=== PATIENT | female | born 1960 | race American Indian/Alaskan Native ===

== ENCOUNTER 2017-05-12 19:56 | Inpatient (IN) | payer MEDICAID ==
[2017-05-12 20:32] LABS: BASO # 0.1 K/uL (0.0-0.2); BASO % 0.9 % (0.0-2.0); EOS # 0.4 K/uL (0.0-0.7); EOS % 4.7 % (0.0-4.0); HEMATOCRIT 47.2 % (34.0-47.0); LYMPH # 2.2 K/uL (1.0-4.3); LYMPH % 27.7 % (20.0-40.0); MEAN CELL VOLUME 95.9 fL (81.0-99.0); MEAN CORPUSCULAR HEMOGLOBIN 31.4 pg (27.0-31.0); MEAN CORPUSCULAR HGB CONC 32.7 g/dL (33.0-37.0); MEAN PLATELET VOLUME 11.4 fL (7.2-11.7); MONO # 0.7 K/uL (0.0-0.8); MONO % 8.4 % (0.0-10.0); RED CELL DISTRIBUTION WIDTH 14.7 % (11.5-14.5); WHITE BLOOD COUNT 8.1 K/uL (4.8-10.8)
[2017-05-12 20:42] LABS: CHLORIDE 106 mmol/L (98-107); POTASSIUM 3.9 mmol/L (3.6-5.2); SODIUM 137 mmol/L (132-148)
[2017-05-12 20:44] LABS: BILIRUBIN,TOTAL 0.5 mg/dL (0.2-1.3); GFR AFRICAN-AMERICAN 51
[2017-05-12 20:45] LABS: ALB/GLOB RATIO 1.1 (1.0-2.1); ALKALINE PHOSPHATASE 137 U/L (38-126); ALT/SGPT 39 U/L (9-52); AST/SGOT 41 U/L (14-36); BLOOD UREA NITROGEN 19 mg/dL (7-17); CALCIUM 9.1 mg/dl (8.6-10.4); CARBON DIOXIDE 21 mmol/L (22-30); GLUCOSE,RANDOM 103 mg/dL (65-105); TOTAL PROTEIN 6.9 g/dL (6.3-8.3)
--- NOTE | 2017-05-12 20:45 | C.PDOC ---
History Of Present Illness Patient presents to the ER requesting detox from heroin and ETOH. Patient reports last use was at 15:00. Denies SI and HI. Time Seen by Provider: 05/12/17 20:45 Chief Complaint (Nursing): Substance Abuse History Per: Patient History/Exam Limitations: no limitations Onset/Duration Of Symptoms: Hrs Current Symptoms Are (Timing): Still Present Suicide/Self Injury Attempted (Context): None Modifying Factor(s): Alcohol, Narcotics Severity: None Pain Scale Rating Of: 0 Associated Symptoms: denies: Depression, Suicidal Thoughts, Suicidal Plan Recent travel outside of the [place]: No Past Medical History Reviewed: Historical Data, Nursing Documentation, Vital Signs Vital Signs: Last Vital Signs Temp 97.3 F L 05/12/17 20:01 Pulse 73 05/12/17 20:01 Resp 18 05/12/17 20:01 BP 197/82 H 05/12/17 20:01 Pulse Ox 96 05/12/17 21:05 - Medical History PMH: HTN Surgical History: No Surg Hx Family History: States: No Known Family Hx - Social History Hx Alcohol Use: Yes Hx Substance Use: Yes (heroin) - Immunization History Hx Influenza Vaccination: No Review Of Systems Constitutional: Negative for: Fever, Chills Gastrointestinal: Negative for: Nausea, Vomiting, Diarrhea Psych: Negative for: Suicidal ideation, Other (Homicidal ideation) Physical Exam - Physical Exam Appears: Non-toxic Skin: Warm, Dry Oral Mucosa: Moist Chest: Symmetrical, No Tenderness Cardiovascular: Rhythm Regular, No Murmur Respiratory: No Rales, No Rhonchi, No Wheezing Gastrointestinal/Abdominal: Soft, No Tenderness Neurological/Psych: Oriented x3 ED Course And Treatment - Laboratory Results Result Diagrams: 05/12/17 20:24 05/12/17 20:24 O2 Sat by Pulse Oximetry: 96 (Room air) Pulse Ox Interpretation: Normal Progress Note: Macrobid administered. Urinalysis ordered. Disposition Discussed With : Delmy Valverde Comment: accepted the pt on his service and took over the care at 10PM Doctor Will See Patient In The: Hospital Counseled Patient/Family Regarding: Studies Performed, Diagnosis - Disposition Disposition: HOSPITALIZED Disposition Time: 20:45 Condition: FAIR - POA Present On Arrival: None - Clinical Impression Clinical Impression: Alcohol abuse, Opioid abuse - Scribe Statement The provider has reviewed the documentation as recorded by the Scribe Dionicio Alonso All medical record entries made by the Adyibyissel were at my direction and personally dictated by me. I have reviewed the chart and agree that the record accurately reflects my personal performance of the history, physical exam, medical decision making, and the department course for this patient. I have also personally directed, reviewed, and agree with the discharge instructions and disposition. Decision To Admit - Pt Status Changed To: Hospital Disposition Of: Inpatient - Admit Certification Admit to Inpatient:: After my assessment, the patient will require hospitalization for at least two midnights. This is because of the severity of symptoms shown, intensity of services needed, and/or the medical risk in this patient being treated as an outpatient. - InPatient: Physician Admission Certification: I certify that this patient requires 2 or more midnights of care for the following reason:: After my assessment, the patient will require hospitalization for at least two midnights. This is because of the severity of symptoms shown, intensity of services needed, and/or the medical risk in this patient being treated as an outpatient. - . Bed Request Type: Detox Admitting Physician: Delmy Valverde Patient Diagnosis: Alcohol abuse, Opioid abuse
[2017-05-12 20:46] LABS: ALCOHOL SERUM < 10 mg/dl (0-10)
[2017-05-12 20:48] LABS: RBC URINE 3 /hpf (0-3); URINE BACTERIA FEW (<OCC); URINE BILIRUBIN NEGATIVE (NEGATIVE); URINE BLOOD NEGATIVE (NEGATIVE); URINE COLOR Yellow (YELLOW); URINE GLUCOSE (UA) 1+ mg/dL (Normal); URINE KETONE NEGATIVE (NEGATIVE); URINE LEUKOCYTE ESTERASE 1+ Leu/uL (Negative); URINE PROTEIN 3+ mg/dL (NEGATIVE); URINE UROBILINOGEN NORMAL mg/dL (0.2-1.0); WBC URINE 31 /hpf (0-5)
[2017-05-13] MEDS ORDERED: Pneumococcal 23-Valent Vaccine IM ONE (05:25)
[2017-05-13 08:33] LABS: BASO # 0.1 K/uL (0.0-0.2); BASO % 0.8 % (0.0-2.0); EOS # 0.3 K/uL (0.0-0.7); HEMATOCRIT 43.7 % (34.0-47.0); LYMPH # 1.7 K/uL (1.0-4.3); LYMPH % 25.5 % (20.0-40.0); MEAN CELL VOLUME 95.2 fL (81.0-99.0); MEAN CORPUSCULAR HEMOGLOBIN 31.3 pg (27.0-31.0); MEAN CORPUSCULAR HGB CONC 32.9 g/dL (33.0-37.0); MEAN PLATELET VOLUME 11.8 fL (7.2-11.7); MONO # 0.5 K/uL (0.0-0.8); RED CELL DISTRIBUTION WIDTH 14.3 % (11.5-14.5); WHITE BLOOD COUNT 6.5 K/uL (4.8-10.8)
[2017-05-13 08:42] LABS: POTASSIUM 3.4 mmol/L (3.6-5.2)
[2017-05-13 08:44] LABS: BILIRUBIN,TOTAL 0.4 mg/dL (0.2-1.3); PHOSPHOROUS 3.8 mg/dL (2.5-4.5); TOTAL PROTEIN 6.4 g/dL (6.3-8.3)
[2017-05-13 08:45] LABS: CALCIUM 8.9 mg/dl (8.6-10.4); MAGNESIUM 1.8 mg/dL (1.6-2.3)
[2017-05-13] MEDS ORDERED: Aluminum Hydroxide/Magnesium Hydroxide Susp (30 mL) PO PRN (09:35)
--- NOTE | 2017-05-13 09:40 | PCM.PSYCH ---
Initial Psychiatric Evaluation - Initial Psychiatric Evaluation Type of Admission: Voluntary Legal Status: Capacity Chief Complaint (in patient's own words): "Tired" History of Present Illness and Precipitating Events: Patient is seen on the detox unit, chart reviewed and case discussed. This is a 56-year-old -Citizen Of [place] female, single, living with her youngest daughter, unemployed. Patient is a poor historian and she is lethargic and some of the history is obtained from the medical records. She is here for heroin and alcohol detox, but mostly heroin. She uses up to 10 bags intranasally for "many years" Currently, she is not in withdrawal but "starting" She also drinks alcohol, sometimes more but lately she drinks 3 beers, 24 oz each. She denies DTs or seizures but had some withdrawal symptoms by history, not currently. Her urine is positive for cocaine but she initially denied it. Then she admitted that she sometimes uses intranasally. She denies other drugs She has been to detox 4 times, rehabilitation 3 times. She denies psych symptoms. Past psych history: Denies Medical history: High blood pressure and diabetes Family psych history: Unknown Current Medications: Active Medications Generic Name Dose Route Start Last Admin Trade Name Freq PRN Reason Stop Dose Admin Al Hydrox/Mg Hydrox/Simethicone 30 ml 05/13/17 09:35 Maalox 30 Ml PO TID PRN Indigestion / Heartburn Clonidine HCl 0.1 mg 05/13/17 09:34 Catapres PO Q4H PRN Symptoms of alcohol withdrawl Folic Acid 1 mg 05/13/17 10:00 Folic Acid PO DAILY ENRIQUE Gabapentin 100 mg 05/13/17 10:00 Neurontin PO TID ENRIQUE Loperamide HCl 2 mg 05/13/17 09:35 Imodium PO Q8 PRN Diarrhea Multivitamins 1 tab 05/13/17 10:00 Hexavitamin PO DAILY ENRIQUE Ondansetron HCl 4 mg 05/13/17 09:35 Zofran Tab PO Q8 PRN Nausea/Vomiting Thiamine HCl 100 mg 05/13/17 10:00 Vitamin B1 Tab PO DAILY ENRIQUE Trazodone HCl 50 mg 05/12/17 22:33 Desyrel PO HS PRN Insomnia Past Psychiatric History - Past Psychiatric History Previous Treatment History: None Pertinent Medical Hx (Current Medical&Sleep Prob, Allergies): Allergies Allergy/AdvReac Type Severity Reaction Status Date / Time No Known Allergies Allergy Verified 05/12/17 20:03 Aspirin 81 mg PO DAILY 05/12/17 Benazepril/Hydrochlorothiazide [Benazepril HCl/Hydrochlorothiazide 10 mg-12.5] 1 tab PO DAILY 05/12/17 Empagliflozin [Jardiance] 10 mg PO DAILY 05/12/17 Gabapentin DAILY 05/12/17 Review of Systems - Neurological Neurological: Weakness - Psychiatric Psychiatric: Abnormal Sleep Pattern, Anxiety, Difficulty Concentrating. absent : Hallucinations, Homicidal Ideation, Suicidal Ideation Mental Status Examination - Personal Presentation Personal Presentation: Looks stated age - Affect Affect: Blunted - Motor Activity Motor Activity: Calm - Reliability in Providing Information Reliability in Providing Information: Fair - Speech Speech: Other (mumbling, too slowed, monotonous) - Mood Mood: Anxious - Formal Thought Process Formal Thought Process: No Impairment - Cognitive Functions Orientation: Person, Place, Time Sensorium: Lethargic Attention/Concentration: Easily distracted Abstract Thinking: Trinity Estimate of Intelligence: Average Judgement: Intact, as evidence by: Insight regarding need for hospitalization Memory: Recent impaired, as evidence by: Inability to recall events of the day, Remote impaired as evidenced by: Inability to recall sig life events - Risk Risk: Withdrawal, Diminished functioning - Strength & Assets Inventory Strength & Assets Inventory: Cooperative - Limitations Limitations: Other DSM 5 DX - DSM 5 DSM 5 Diagnosis: Opioid use d/o - severe Alcohol use d/o - severe Cocaine use d/o - moderate HTN DM - Recommended/Plan of Treatment Treatment Recommendations and Plan of Treatment: Alcohol: Librium detox if she withdraws Gabapentin for augmentation As needed meds and vitamins Attend groups and activities OR for abstinence and CBT for relapse prevention Support and psychoeducation Consider and encourage MAT Refer to after care at IOP or rehab Opioids: Methadone detox when she withdraws As needed meds and vitamins Attend groups and activities OR for abstinence and CBT for relapse prevention Support and psychoeducation Consider and encourage MAT Refer to after care at an IOP or inpatient rehab Cocaine: Gabapentin for wdw sxs OR for abstinence Medical problems: To be transferred to medicine due to malignant HTN Help appreciated 33 min Projected ELOS: 5 dyas Prognosis: Good with treatment Discharge Plan and Discharge Criteria: No wdw sxs Refer to IOP or rehab AND MAT (ie Vivitrol)
--- NOTE | 2017-05-13 09:46 | CP.PCM.CON ---
<Dai Helton V - Last Filed: 05/13/17 18:39> Meds Allergies/Adverse Reactions: Allergies Allergy/AdvReac Type Severity Reaction Status Date / Time No Known Allergies Allergy Verified 05/12/17 20:03 - Medications Medications: Current Medications Al Hydrox/Mg Hydrox/Simethicone (Maalox 30 Ml) 30 ml PO TID PRN PRN Reason: Indigestion / Heartburn Aspirin (Aspirin Chewable) 81 mg PO DAILY [facility] Last Admin: 05/13/17 13:32 Dose: 81 mg Chlordiazepoxide (Librium) 25 mg PO Q4H PRN PRN Reason: Alcohol Withdrawal Last Admin: 05/13/17 13:38 Dose: 25 mg Clonidine HCl (Catapres) 0.1 mg PO Q8H PRN PRN Reason: Other Last Admin: 05/13/17 13:22 Dose: 0.1 mg Enalapril Maleate (Vasotec) 5 mg PO DAILY [facility] Last Admin: 05/13/17 13:30 Dose: 5 mg Folic Acid (Folic Acid) 1 mg PO DAILY [facility] Last Admin: 05/13/17 10:00 Dose: 1 mg Gabapentin (Neurontin) 100 mg PO TID [facility] Last Admin: 05/13/17 17:13 Dose: 100 mg Hydralazine HCl (Apresoline) 10 mg IVP Q6H PRN PRN Reason: Systolic Blood Pressure>160 Hydrochlorothiazide (Microzide) 12.5 mg PO DAILY [facility] Last Admin: 05/13/17 11:15 Dose: 12.5 mg Loperamide HCl (Imodium) 2 mg PO Q8 PRN PRN Reason: Diarrhea Methadone HCl (Methadone) 15 mg PO DAILY [facility] PRN Reason: Taper Stop: 05/16/17 16:46 Last Admin: 05/13/17 17:13 Dose: 15 mg Multivitamins (Hexavitamin) 1 tab PO DAILY [facility] Last Admin: 05/13/17 10:00 Dose: 1 tab Ondansetron HCl (Zofran Tab) 4 mg PO Q8 PRN PRN Reason: Nausea/Vomiting Potassium Chloride (K-Dur 20 Meq Er Tab) 40 meq PO ONCE ONE Stop: 05/14/17 18:39 Thiamine HCl (Vitamin B1 Tab) 100 mg PO DAILY [facility] Last Admin: 05/13/17 10:00 Dose: 100 mg Trazodone HCl (Desyrel) 50 mg PO HS PRN PRN Reason: Insomnia Results - Vital Signs Recent Vital Signs: Last Vital Signs Temp 97 F L 05/13/17 16:50 Pulse 50 L 05/13/17 16:50 Resp 20 05/13/17 16:50 BP 195/105 H 05/13/17 17:00 Pulse Ox 100 05/13/17 16:50 - Labs Result Diagrams: 05/13/17 08:27 05/13/17 08:27 Labs: Laboratory Results - last 24 hr 05/13/17 05/13/17 05/13/17 07:46 08:27 08:27 WBC 6.5 RBC 4.59 Hgb 14.3 Hct 43.7 MCV 95.2 MCH 31.3 H MCHC 32.9 L RDW 14.3 Plt Count 164 MPV 11.8 H Neut % (Auto) 61.7 Lymph % (Auto) 25.5 [place] % (Auto) 7.0 Eos % (Auto) 5.0 H Baso % (Auto) 0.8 Neut # 4.0 Lymph # 1.7 [place] # 0.5 Eos # 0.3 Baso # 0.1 Sodium 136 Potassium 3.4 L Chloride 105 Carbon Dioxide 23 Anion Gap 11 BUN 21 H Creatinine 1.3 H Est GFR ( Amer) 51 Est GFR (Non-Af Amer) 42 POC Glucose (mg/dL) 181 H Random Glucose 156 H Calcium 8.9 Phosphorus 3.8 Magnesium 1.8 Total Bilirubin 0.4 AST 26 ALT 34 Alkaline Phosphatase 116 Total Protein 6.4 Albumin 3.2 L Globulin 3.1 Albumin/Globulin Ratio 1.0 05/13/17 11:30 WBC RBC Hgb Hct MCV MCH MCHC RDW Plt Count MPV Neut % (Auto) Lymph % (Auto) [place] % (Auto) Eos % (Auto) Baso % (Auto) Neut # Lymph # [place] # Eos # Baso # Sodium Potassium Chloride Carbon Dioxide Anion Gap BUN Creatinine Est GFR ( Amer) Est GFR (Non-Af Amer) POC Glucose (mg/dL) 159 H Random Glucose Calcium Phosphorus Magnesium Total Bilirubin AST ALT Alkaline Phosphatase Total Protein Albumin Globulin Albumin/Globulin Ratio Attending/Attestation - Attestation I have personally seen and examined this patient.: Yes I have fully participated in the care of the patient.: Yes I have reviewed all pertinent clinical information: Yes Notes (Text): Patient seen, examined, and case discussed with day-time resident. Patient seen in Detox for consulted for uncontrolled hypertension and history of diabetes. Patient reports she comes to detox following abuse of alcohol, cocaine, and opiates. Prior to my arrival, patient received total Ativan 3mg PO per discussion with the nurse. Patient reports she ran out of her medications for her blood pressure and diabetes some-time ago. Patient transferred to telemetry given systolic blood pressure of 200s but remains asymptomatic. Denies headache, denies chest pain, denies change in vision, and denies kidney problems. Discussed with psychiatrist who is aware patient is being transferred out to telemetry for further monitoring. Assessment/Plan 1) Hypertensive urgency * Clonidine 0.1mg PO Q 8 hours PRN give SBP>180 * Given dose of Enalapril 2.5mg IV X1 on the floor * Start Hydralazine 10mg IV Q 6hour for SBP>160 * Start Nitroglycerin 0.1mg Transdermal patch following repeat blood pressure SBP 200s * Will continue to monitor blood pressure; asymptomatic * Patient is in withdrawal from opiates as well 2) Diabetes type 2 * Ordered for [id number] * Accuechecks QAC and HS * Lipid panel in AM 3) Elevated BUN/CR * Appears mildy hypovolumeic * Will likely gentle IV hydration and encourage PO intake of fluids * Ordered for Renal US and Renal duplex 4) Alcohol Abuse * management per psych * Patient started on librium; patient refuses Librium reports makes her feel crazy 5) Cocaine Abuse * management per psych * Refrain from beta-blockers given active use of cocaine 6) Opiate withdrawal * Management per psych * Patient started on Methadone taper; following discussion with psych 7) Bradycardia * Monitor * Repeat EKG in morning * Monitor on telemetry * Consult: Dr Soler (Cardiology) f/u recommendation 8) Prophylactic measure * SCDS b/l * Protonix 40mg Iv q daily for GI ppx <Kylee Licea - Last Filed: 05/13/17 19:07> History of Present Illness - History of Present Illness History of Present Illness: Reason for consult: Uncontrolled Hypertension. 56 year old AA female admitted to detox on 05/12/17 for heroin, cocaine and alcohol abuse. Patient reports she has not taken her BP meds for several days. Admits she feels a little lethargic after Ativan given in Detox this AM. She reports relapsing to cocaine and heroin over the past few months after being off drugs over the past 10 years. She Denies chest pain, SOB, headache, visual changes, fevers, chills, nausea, vomiting, diarrhea, constipation. She reports no complaints. PMHx: hypertension, opiate abuse, alcohol abuse Medication: Benazepril/HCTZ PO daily, Jardiance 10 mg PO daily, Aspirin 81 mg PO daily. Surgical Hx: none Fam Hx: none Social Hx: Abuses heroin (10 bags a day), cocaine (every other day), alcohol (3 beers a day). Allergies: none Review of Systems - Constitutional Constitutional: absent: Chills, Fever - EENT Eyes: absent: Blurred Vision, Change in Vision Ears: absent: Dizziness - Cardiovascular Cardiovascular: absent: Chest Pain, Dyspnea, Leg Edema - Respiratory Respiratory: absent: Cough, Dyspnea - Gastrointestinal Gastrointestinal: absent: Abdominal Pain, Constipation, Diarrhea, Nausea, Vomiting - Genitourinary Genitourinary: absent: Change in Urinary Stream, Difficulty Urinating - Musculoskeletal Musculoskeletal: absent: Back Pain, Numbness, Tingling - Integumentary Integumentary: absent: Wounds - Neurological Neurological: absent: Dizziness, Tingling, Weakness - Psychiatric Psychiatric: absent: Anxiety, Depression - Endocrine Endocrine: Fatigue. absent: Palpitations - Hematologic/Lymphatic Hematologic: absent: Easy Bleeding, Easy Bruising Past Patient History - Past Medical History & Family History Past Medical History?: Yes - Past Social History Smoking Status: Light Smoker < 10 Cigarettes Daily - CARDIAC Hx Hypertension: Yes - PULMONARY Hx Tuberculosis: No - NEUROLOGICAL HX Cerebrovascular Accident: No Hx Seizures: No - ENDOCRINE/METABOLIC Hx Diabetes Mellitus Type 2: Yes - HEMATOLOGICAL/ONCOLOGICAL Hx Cancer: No Hx Human Immunodeficiency Virus (HIV): No - MUSCULOSKELETAL/RHEUMATOLOGICAL Hx Falls: No - GENITOURINARY/GYNECOLOGICAL Hx Sexually Transmitted Disorders: No - PSYCHIATRIC Hx Substance Use: Yes - SURGICAL HISTORY Hx Surgeries: No - ANESTHESIA Hx Anesthesia: No Meds - Medications Medications: Current Medications Al Hydrox/Mg Hydrox/Simethicone (Maalox 30 Ml) 30 ml PO TID PRN PRN Reason: Indigestion / Heartburn Clonidine HCl (Catapres) 0.1 mg PO Q4H PRN PRN Reason: Symptoms of alcohol withdrawl Folic Acid (Folic Acid) 1 mg PO DAILY ENRIQUE Gabapentin (Neurontin) 100 mg PO TID ENRIQUE Loperamide HCl (Imodium) 2 mg PO Q8 PRN PRN Reason: Diarrhea Multivitamins (Hexavitamin) 1 tab PO DAILY ENRIQUE Ondansetron HCl (Zofran Tab) 4 mg PO Q8 PRN PRN Reason: Nausea/Vomiting Potassium Chloride (K-Dur 20 Meq Er Tab) 40 meq PO ONCE ONE Stop: 05/13/17 09:44 Thiamine HCl (Vitamin B1 Tab) 100 mg PO DAILY ENRIQUE Trazodone HCl (Desyrel) 50 mg PO HS PRN PRN Reason: Insomnia Physical Exam - Constitutional Appears: No Acute Distress - Head Exam Head Exam: NORMAL INSPECTION, NORMOCEPHALIC - Eye Exam Eye Exam: Conjunctival injection, EOMI, PERRL - ENT Exam ENT Exam: Mucous Membranes Moist - Neck Exam Neck exam: Positive for: Normal Inspection - Respiratory Exam Respiratory Exam: Clear to Auscultation Bilateral, NORMAL BREATHING PATTERN - Cardiovascular Exam Cardiovascular Exam: REGULAR RHYTHM, +S1, +S2 - GI/Abdominal Exam GI & Abdominal Exam: Normal Bowel Sounds, Soft. absent: Distended, Tenderness - Extremities Exam Extremities exam: Positive for: full ROM, pedal edema. Negative for: tenderness - Back Exam Back exam: NORMAL INSPECTION - Neurological Exam Neurological exam: Alert, Oriented x3 - Psychiatric Exam Psychiatric exam: Normal Affect, Normal Mood - Skin Skin Exam: Dry, Normal Color, Warm Results - Vital Signs Recent Vital Signs: Last Vital Signs Temp 98.1 F 05/13/17 08:19 Pulse 58 L 05/13/17 09:20 Resp 20 05/13/17 09:20 BP 200/102 H 05/13/17 09:20 Pulse Ox 96 05/13/17 09:20 - Labs Result Diagrams: 05/13/17 08:27 05/13/17 08:27 Labs: Laboratory Results - last 24 hr 05/13/17 05/13/17 05/13/17 07:46 08:27 08:27 WBC 6.5 RBC 4.59 Hgb 14.3 Hct 43.7 MCV 95.2 MCH 31.3 H MCHC 32.9 L RDW 14.3 Plt Count 164 MPV 11.8 H Neut % (Auto) 61.7 Lymph % (Auto) 25.5 [place] % (Auto) 7.0 Eos % (Auto) 5.0 H Baso % (Auto) 0.8 Neut # 4.0 Lymph # 1.7 [place] # 0.5 Eos # 0.3 Baso # 0.1 Sodium 136 Potassium 3.4 L Chloride 105 Carbon Dioxide 23 Anion Gap 11 BUN 21 H Creatinine 1.3 H Est GFR ( Amer) 51 Est GFR (Non-Af Amer) 42 POC Glucose (mg/dL) 181 H Random Glucose 156 H Calcium 8.9 Phosphorus 3.8 Magnesium 1.8 Total Bilirubin 0.4 AST 26 ALT 34 Alkaline Phosphatase 116 Total Protein 6.4 Albumin 3.2 L Globulin 3.1 Albumin/Globulin Ratio 1.0 Assessment & Plan (1) Hypertensive urgency Assessment and Plan: Patient with SBP>200 and DBP>100 Patient transferred to Telemetry since blood pressure was refractory to Clonidine. Patient is currently asymptomatic Cardio Consult placed- Dr. Soler- bonnie appreciated. Start: Vasotec 5 mg Po daily Clonidine 0.1mg PO Q 8 hours PRN if SBP>180 Hydralazine 10mg IV Q 6hour for SBP>160 Nitroglycerin 0.1mg patch Status: Acute (2) Diabetes mellitus Assessment and Plan: f/u Hgb A1C Accuchecks ACHS Insulin sliding scale Status: Acute (3) Elevated serum creatinine Assessment and Plan: f/u renal US Status: Acute (4) Alcohol abuse Assessment and Plan: management as per psych team Status: Acute (5) Bradycardia Assessment and Plan: Asymptomatic. Monitor on Tele. Repeat EKG in the AM f/u ECHO in the AM Cardio consult placed-Dr Soler- bonnie appreciated Status: Acute (6) Opioid abuse Assessment and Plan: management as per psych team Status: Acute (7) Prophylactic measure Assessment and Plan: SCDs Protonix 40 mg IVP daily. Status: Acute
[2017-05-13] MEDS ORDERED: Potassium Chloride 20 mEq ER Tab PO ONE (10:00)
[2017-05-13] MEDS: Multiple Vitamins Tab PO SCH (10:00)
[2017-05-13] MEDS ORDERED: Enalaprilat 2.5 MG/2 ML IV ONE (10:09)
[2017-05-13] MEDS ORDERED: HYDROCHLOROTHIAZIDE PO SCH (11:00)
[2017-05-13] MEDS ORDERED: BENAZEPRIL PO SCH (11:00)
--- NOTE | 2017-05-13 13:45 | US ---
Renal ultrasound History: Acute kidney disease. Comparison: None available. Technique: Real-time sonography was performed through the kidneys. Findings: Right kidney: 10.9 x 6.1 x 5.3 centimeters. Increased echogenicity of the renal cortex suggestive for medical renal disease. No calculi or hydronephrosis. Left Kidney: 11.8 x 6.5 x 4.7 centimeters. Increased echogenicity of the renal cortex suggestive for medical renal disease. No calculi or hydronephrosis. Lower pole hypoechoic cyst measuring 1.2 x 1.1 x 0.8 centimeters. Visualized aorta is preserved. Visualized urinary bladder is grossly preserved. Impression: Increased echogenicity of the bilateral renal cortices suggestive for medical renal disease. 1.2 centimeter lower pole left renal cyst.
[2017-05-13] MEDS ORDERED: Nitroglycerin 2% Ointment Foilpak UD TOP ONE (19:00)
[2017-05-13] MEDS ORDERED: Labetalol 25mg/5ml Syringe IVP STA (21:39)
[2017-05-13] MEDS: Nitroglycerin 2% Ointment Foilpak UD TOP SCH (21:49)
--- NOTE | 2017-05-13 22:19 | CP.PCM.CON ---
History of Present Illness - History of Present Illness History of Present Illness: 56 year old AA female with h/o HTN and DM admitted to detox on 05/12/17 for heroin, cocaine and alcohol abuse. Patient reports she has not taken her BP meds for several days. She reports relapsing to cocaine and heroin over the past few months after being off drugs over the past 10 years. She Denies chest pain, SOB, headache, visual changes, fevers, chills, nausea, vomiting, diarrhea , constipation. Evaluation for ICU requested for elevated BP patient given dose of norvasc and NTG paste (in addition to other meds received earlier today) with improvement in BP to 188/77mmHg Review of Systems - Review of Systems Systems not reviewed;Unavailable: Unstable Vital Signs - Constitutional Constitutional: absent: Anorexia, Chills, Headache, Weight Loss, Weakness - EENT Eyes: absent: Blurred Vision Nose/Mouth/Throat: absent: Nasal Congestion, Neck Pain - Cardiovascular Cardiovascular: Leg Edema. absent: Chest Pain, Dyspnea, Rapid Heart Rate (h/o intermitted mild leg swelling) - Genitourinary Genitourinary: absent: Difficulty Urinating, Urinary Frequency - Musculoskeletal Musculoskeletal: absent: Muscle Weakness - Integumentary Integumentary: absent: Changing Lesions - Neurological Neurological: absent: Dizziness, Headaches - Endocrine Endocrine: absent: Polydipsia, Polyphagia Past Patient History - Past Medical History & Family History Past Medical History?: Yes - Past Social History Smoking Status: Light Smoker < 10 Cigarettes Daily Occupation: unemployed Alcohol: > 2 Drinks/Day Drugs: Cocaine, Opiates Home Situation {Lives}: With Family - CARDIAC Hx Hypertension: Yes - PULMONARY Hx Tuberculosis: No - NEUROLOGICAL HX Cerebrovascular Accident: No Hx Seizures: No - ENDOCRINE/METABOLIC Hx Diabetes Mellitus Type 2: Yes - HEMATOLOGICAL/ONCOLOGICAL Hx Cancer: No Hx Human Immunodeficiency Virus (HIV): No - MUSCULOSKELETAL/RHEUMATOLOGICAL Hx Falls: No - GENITOURINARY/GYNECOLOGICAL Hx Sexually Transmitted Disorders: No - PSYCHIATRIC Hx Substance Use: Yes - SURGICAL HISTORY Hx Surgeries: No - ANESTHESIA Hx Anesthesia: No Meds Allergies/Adverse Reactions: Allergies Allergy/AdvReac Type Severity Reaction Status Date / Time No Known Allergies Allergy Verified 05/12/17 20:03 - Medications Medications: Current Medications Al Hydrox/Mg Hydrox/Simethicone (Maalox 30 Ml) 30 ml PO TID PRN PRN Reason: Indigestion / Heartburn Aspirin (Aspirin Chewable) 81 mg PO DAILY [facility] Last Admin: 05/13/17 13:32 Dose: 81 mg Chlordiazepoxide (Librium) 25 mg PO Q4H PRN PRN Reason: Alcohol Withdrawal Last Admin: 05/13/17 13:38 Dose: 25 mg Clonidine HCl (Catapres) 0.1 mg PO Q8H PRN PRN Reason: Other Last Admin: 05/13/17 13:22 Dose: 0.1 mg Enalapril Maleate (Vasotec) 5 mg PO DAILY [facility] Last Admin: 05/13/17 13:30 Dose: 5 mg Folic Acid (Folic Acid) 1 mg PO DAILY [facility] Last Admin: 05/13/17 10:00 Dose: 1 mg Gabapentin (Neurontin) 100 mg PO TID [facility] Last Admin: 05/13/17 17:13 Dose: 100 mg Hydralazine HCl (Apresoline) 10 mg IVP Q6H PRN PRN Reason: Systolic Blood Pressure>160 Hydrochlorothiazide (Microzide) 12.5 mg PO DAILY [facility] Last Admin: 05/13/17 11:15 Dose: 12.5 mg Loperamide HCl (Imodium) 2 mg PO Q8 PRN PRN Reason: Diarrhea Methadone HCl (Methadone) 15 mg PO DAILY [facility] PRN Reason: Taper Stop: 05/16/17 16:46 Last Admin: 05/13/17 17:13 Dose: 15 mg Multivitamins (Hexavitamin) 1 tab PO DAILY [facility] Last Admin: 05/13/17 10:00 Dose: 1 tab Nitroglycerin (Nitro-Bid 2% Oint) 1 ea TOP Q6H [facility] Last Admin: 05/13/17 21:49 Dose: 1 ea Ondansetron HCl (Zofran Tab) 4 mg PO Q8 PRN PRN Reason: Nausea/Vomiting Potassium Chloride (K-Dur 20 Meq Er Tab) 40 meq PO ONCE ONE Stop: 05/14/17 18:39 Thiamine HCl (Vitamin B1 Tab) 100 mg PO DAILY [facility] Last Admin: 05/13/17 10:00 Dose: 100 mg Trazodone HCl (Desyrel) 50 mg PO HS PRN PRN Reason: Insomnia Physical Exam - Constitutional Appears: No Acute Distress, Unkempt - Head Exam Head Exam: ATRAUMATIC, NORMAL INSPECTION, NORMOCEPHALIC - Eye Exam Eye Exam: EOMI, Normal appearance, PERRL Pupil Exam: NORMAL ACCOMODATION - ENT Exam ENT Exam: Mucous Membranes Moist - Neck Exam Neck exam: Positive for: Normal Inspection. Negative for: Lymphadenopathy - Respiratory Exam Respiratory Exam: Clear to Auscultation Bilateral, NORMAL BREATHING PATTERN. absent: Rhonchi, Wheezes - Cardiovascular Exam Cardiovascular Exam: Bradycardia, REGULAR RHYTHM - GI/Abdominal Exam GI & Abdominal Exam: Normal Bowel Sounds, Soft. absent: Distended, Tenderness - Extremities Exam Extremities exam: Positive for: pedal edema, pedal pulses present. Negative for : calf tenderness, tenderness - Back Exam Back exam: NORMAL INSPECTION - Neurological Exam Neurological exam: Oriented x3 - Skin Skin Exam: Intact, Normal Color, Warm Results - Vital Signs Recent Vital Signs: Last Vital Signs Temp 97 F L 05/13/17 16:50 Pulse 45 L 05/13/17 18:42 Resp 20 05/13/17 16:50 BP 188/77 H 05/13/17 21:38 Pulse Ox 100 05/13/17 16:50 - Labs Result Diagrams: 05/13/17 08:27 05/13/17 08:27 Labs: Laboratory Results - last 24 hr 05/13/17 05/13/17 05/13/17 07:46 08:27 08:27 WBC 6.5 RBC 4.59 Hgb 14.3 Hct 43.7 MCV 95.2 MCH 31.3 H MCHC 32.9 L RDW 14.3 Plt Count 164 MPV 11.8 H Neut % (Auto) 61.7 Lymph % (Auto) 25.5 [place] % (Auto) 7.0 Eos % (Auto) 5.0 H Baso % (Auto) 0.8 Neut # 4.0 Lymph # 1.7 [place] # 0.5 Eos # 0.3 Baso # 0.1 Sodium 136 Potassium 3.4 L Chloride 105 Carbon Dioxide 23 Anion Gap 11 BUN 21 H Creatinine 1.3 H Est GFR ( Amer) 51 Est GFR (Non-Af Amer) 42 POC Glucose (mg/dL) 181 H Random Glucose 156 H Calcium 8.9 Phosphorus 3.8 Magnesium 1.8 Total Bilirubin 0.4 AST 26 ALT 34 Alkaline Phosphatase 116 Total Protein 6.4 Albumin 3.2 L Globulin 3.1 Albumin/Globulin Ratio 1.0 05/13/17 11:30 WBC RBC Hgb Hct MCV MCH MCHC RDW Plt Count MPV Neut % (Auto) Lymph % (Auto) [place] % (Auto) Eos % (Auto) Baso % (Auto) Neut # Lymph # [place] # Eos # Baso # Sodium Potassium Chloride Carbon Dioxide Anion Gap BUN Creatinine Est GFR ( Amer) Est GFR (Non-Af Amer) POC Glucose (mg/dL) 159 H Random Glucose Calcium Phosphorus Magnesium Total Bilirubin AST ALT Alkaline Phosphatase Total Protein Albumin Globulin Albumin/Globulin Ratio Assessment & Plan - Assessment and Plan (Free Text) Assessment: 1.Uncontrolled HTN due to non compliance and early withdrawal patient with h/o HTN off meds for few weeks admitted for alchohol,opiate and Coccaine detox.Transferred from Psych unit due to elevated HTN. Last BP 188/77mm Hg.Nitrate increased and clonidine given.will follow BP 2.H/DM awaiting further labs.F/u accucheck 3.Hypokalemia-potassium replaced.f/u with repeat labs 4.Alchohol ,Opiate and Coccaine abuse-being treated by Psych 5.Renal insufficiency/Proteinuria Will not transfer to ICU at present time . monitor BP Consider adding Calcium channel blockers
[2017-05-14] MEDS: Nitroglycerin 2% Ointment Foilpak UD TOP SCH ×4 (03:34→22:15)
[2017-05-14 08:02] LABS: BASO # 0.1 K/uL (0.0-0.2); BASO % 1.4 % (0.0-2.0); EOS # 0.3 K/uL (0.0-0.7); EOS % 4.6 % (0.0-4.0); HEMATOCRIT 47.3 % (34.0-47.0); LYMPH # 1.4 K/uL (1.0-4.3); LYMPH % 18.2 % (20.0-40.0); MEAN CELL VOLUME 95.3 fL (81.0-99.0); MEAN CORPUSCULAR HEMOGLOBIN 31.2 pg (27.0-31.0); MEAN CORPUSCULAR HGB CONC 32.7 g/dL (33.0-37.0); MEAN PLATELET VOLUME 11.7 fL (7.2-11.7); MONO # 0.4 K/uL (0.0-0.8); MONO % 5.3 % (0.0-10.0); NRBC % 0.1 % (0.0-2.0); RED CELL DISTRIBUTION WIDTH 14.6 % (11.5-14.5); WHITE BLOOD COUNT 7.4 K/uL (4.8-10.8)
[2017-05-14 08:08] LABS: CHLORIDE 111 mmol/L (98-107); POTASSIUM 3.6 mmol/L (3.6-5.2); SODIUM 140 mmol/L (132-148)
[2017-05-14 08:10] LABS: ALKALINE PHOSPHATASE 114 U/L (38-126); AST/SGOT 24 U/L (14-36); BILIRUBIN,TOTAL 0.8 mg/dL (0.2-1.3); BLOOD UREA NITROGEN 21 mg/dL (7-17); CARBON DIOXIDE 22 mmol/L (22-30); CHOLESTEROL 227 mg/dL (0-199); GFR AFRICAN-AMERICAN > 60; GLUCOSE,RANDOM 143 mg/dL (65-105); TOTAL PROTEIN 6.4 g/dL (6.3-8.3)
[2017-05-14 08:11] LABS: ALT/SGPT 29 U/L (9-52); CALCIUM 9.7 mg/dl (8.6-10.4); MAGNESIUM 1.8 mg/dL (1.6-2.3)
[2017-05-14] MEDS: Multiple Vitamins Tab PO SCH (09:28)
--- NOTE | 2017-05-14 09:44 | CP.PCM.CON ---
<Kj Aponte - Last Filed: 05/14/17 09:52> History of Present Illness - History of Present Illness History of Present Illness: Consult Note for Dr. Soelr Reason for consult: Hypertensive Urgency 56 y/o F with PMH of HTN, heroin, cocaine, and alcohol abuse presented initially on 05/12/17 for detox secondary to polysubstance abuse. Pt states she recently relapsed after being off of drugs for a long period of time. Pt was found to have SBP >200 in detox and was evaluated by the medical team, who transferred patient to the telemetry unit for hypertensive urgency. Upon further questioning, the pt states she ran out of her BP medications 2 weeks prior to coming to the hospital. She states she was unable to go to her doctor to obtain another prescription. Today, pt states she has a mild headache and has felt dizzy. Denies CP, SOB, N/V/D, weakness, numbness, tingling, fatigue. PMHx: HTN, Polysubstance abuse Surgical Hx: none Family Hx: none Social Hx: Polysubstance abuse, tobacco use, and alcohol use Medication: See MAR Allergies: none Review of Systems - Constitutional Constitutional: absent: Fatigue, Fever - EENT Eyes: absent: Blurred Vision, Change in Vision - Cardiovascular Cardiovascular: absent: Chest Pain, Irregular Heart Rhythm - Respiratory Respiratory: absent: Cough, Dyspnea - Gastrointestinal Gastrointestinal: absent: Diarrhea, Vomiting - Genitourinary Genitourinary: absent: Dysuria, Hematuria - Neurological Neurological: Dizziness. absent: Numbness, Syncope, Tingling Past Patient History - Past Medical History & Family History Past Medical History?: Yes - Past Social History Smoking Status: Light Smoker < 10 Cigarettes Daily Occupation: unemployed Alcohol: > 2 Drinks/Day Drugs: Cocaine, Opiates Home Situation {Lives}: With Family - CARDIAC Hx Hypertension: Yes - PULMONARY Hx Tuberculosis: No - NEUROLOGICAL HX Cerebrovascular Accident: No Hx Seizures: No - ENDOCRINE/METABOLIC Hx Diabetes Mellitus Type 2: Yes - HEMATOLOGICAL/ONCOLOGICAL Hx Cancer: No Hx Human Immunodeficiency Virus (HIV): No - MUSCULOSKELETAL/RHEUMATOLOGICAL Hx Falls: No - GENITOURINARY/GYNECOLOGICAL Hx Sexually Transmitted Disorders: No - PSYCHIATRIC Hx Substance Use: Yes - SURGICAL HISTORY Hx Surgeries: No - ANESTHESIA Hx Anesthesia: No Meds Allergies/Adverse Reactions: Allergies Allergy/AdvReac Type Severity Reaction Status Date / Time No Known Allergies Allergy Verified 05/12/17 20:03 - Medications Medications: Current Medications Acetaminophen (Tylenol 325mg Tab) 650 mg PO ONCE ONE Stop: 05/14/17 10:01 Last Admin: 05/14/17 09:29 Dose: 650 mg Al Hydrox/Mg Hydrox/Simethicone (Maalox 30 Ml) 30 ml PO TID PRN PRN Reason: Indigestion / Heartburn Amlodipine Besylate (Norvasc) 10 mg PO STAT STA Stop: 05/14/17 09:33 Aspirin (Aspirin Chewable) 81 mg PO DAILY [facility] Last Admin: 05/14/17 09:28 Dose: 81 mg Chlordiazepoxide (Librium) 25 mg PO Q4H PRN PRN Reason: Alcohol Withdrawal Last Admin: 05/13/17 13:38 Dose: 25 mg Clonidine HCl (Catapres) 0.2 mg PO Q8H PRN PRN Reason: Other Last Admin: 05/14/17 08:29 Dose: 0.2 mg Enalapril Maleate (Vasotec) 5 mg PO DAILY [facility] Last Admin: 05/14/17 09:28 Dose: 5 mg Folic Acid (Folic Acid) 1 mg PO DAILY [facility] Last Admin: 05/14/17 09:28 Dose: 1 mg Gabapentin (Neurontin) 100 mg PO TID [facility] Last Admin: 05/14/17 09:28 Dose: 100 mg Hydralazine HCl (Apresoline) 10 mg IVP Q6H PRN PRN Reason: Systolic Blood Pressure>160 Last Admin: 05/14/17 03:34 Dose: 10 mg Hydrochlorothiazide (Microzide) 12.5 mg PO DAILY [facility] Last Admin: 05/14/17 09:28 Dose: 12.5 mg Loperamide HCl (Imodium) 2 mg PO Q8 PRN PRN Reason: Diarrhea Methadone HCl (Methadone) 15 mg PO DAILY [facility] PRN Reason: Taper Stop: 05/16/17 16:46 Last Admin: 05/14/17 09:29 Dose: 15 mg Multivitamins (Hexavitamin) 1 tab PO DAILY [facility] Last Admin: 05/14/17 09:28 Dose: 1 tab Nitroglycerin (Nitro-Bid 2% Oint) 1 ea TOP Q6H [facility] Last Admin: 05/14/17 03:34 Dose: 1 ea Ondansetron HCl (Zofran Tab) 4 mg PO Q8 PRN PRN Reason: Nausea/Vomiting Potassium Chloride (K-Dur 20 Meq Er Tab) 40 meq PO ONCE ONE Stop: 05/14/17 18:39 Thiamine HCl (Vitamin B1 Tab) 100 mg PO DAILY [facility] Last Admin: 05/14/17 09:28 Dose: 100 mg Trazodone HCl (Desyrel) 50 mg PO HS PRN PRN Reason: Insomnia Physical Exam - Constitutional Appears: Non-toxic, No Acute Distress - Head Exam Head Exam: ATRAUMATIC, NORMAL INSPECTION, NORMOCEPHALIC - ENT Exam ENT Exam: Mucous Membranes Moist, Normal Exam - Respiratory Exam Respiratory Exam: Clear to Auscultation Bilateral, NORMAL BREATHING PATTERN. absent: Rales - Cardiovascular Exam Cardiovascular Exam: RRR, +S1, +S2 - GI/Abdominal Exam GI & Abdominal Exam: Normal Bowel Sounds, Soft. absent: Tenderness - Extremities Exam Extremities exam: Negative for: calf tenderness, pedal edema - Neurological Exam Neurological exam: Alert, CN II-XII Intact, Oriented x3 - Skin Skin Exam: Intact, Normal Color, Warm Results - Vital Signs Recent Vital Signs: Last Vital Signs Temp 98.4 F 05/14/17 09:05 Pulse 60 05/14/17 09:05 Resp 18 05/14/17 09:05 BP 204/88 H 05/14/17 09:28 Pulse Ox 100 05/14/17 09:05 - Labs Result Diagrams: 05/14/17 07:48 05/14/17 07:48 Labs: Laboratory Results - last 24 hr 05/13/17 05/14/17 05/14/17 11:30 06:23 07:48 WBC 7.4 RBC 4.96 Hgb 15.5 Hct 47.3 H MCV 95.3 MCH 31.2 H MCHC 32.7 L RDW 14.6 H Plt Count 180 MPV 11.7 Neut % (Auto) 70.5 Lymph % (Auto) 18.2 L [place] % (Auto) 5.3 Eos % (Auto) 4.6 H Baso % (Auto) 1.4 Neut # 5.3 Lymph # 1.4 [place] # 0.4 Eos # 0.3 Baso # 0.1 Sodium Potassium Chloride Carbon Dioxide Anion Gap BUN Creatinine Est GFR ( Amer) Est GFR (Non-Af Amer) POC Glucose (mg/dL) 159 H 156 H Random Glucose Hemoglobin A1c Calcium Phosphorus Magnesium Total Bilirubin AST ALT Alkaline Phosphatase Total Protein Albumin Globulin Albumin/Globulin Ratio Triglycerides Cholesterol LDL Cholesterol Direct HDL Cholesterol 05/14/17 05/14/17 07:48 07:48 WBC RBC Hgb Hct MCV MCH MCHC RDW Plt Count MPV Neut % (Auto) Lymph % (Auto) [place] % (Auto) Eos % (Auto) Baso % (Auto) Neut # Lymph # [place] # Eos # Baso # Sodium 140 Potassium 3.6 Chloride 111 H Carbon Dioxide 22 Anion Gap 11 BUN 21 H Creatinine 1.1 Est GFR ( Amer) > 60 Est GFR (Non-Af Amer) 51 POC Glucose (mg/dL) Random Glucose 143 H Hemoglobin A1c 6.1 Calcium 9.7 Phosphorus 3.0 Magnesium 1.8 Total Bilirubin 0.8 AST 24 ALT 29 Alkaline Phosphatase 114 Total Protein 6.4 Albumin 3.2 L Globulin 3.2 Albumin/Globulin Ratio 1.0 Triglycerides 148 Cholesterol 227 H LDL Cholesterol Direct 134 H HDL Cholesterol 57 Assessment & Plan (1) Hypertensive urgency Assessment and Plan: Recommend adjusting medications to once daily due to patient noncompliance: Norvasc 10 mg daily Increase dose of enalapril to 10 mg daily Clonidine may be causing bradycardia Will continue to adjust medication as needed Status: Acute <Mauricio Soler - Last Filed: 05/15/17 09:16> Meds - Medications Medications: Current Medications Al Hydrox/Mg Hydrox/Simethicone (Maalox 30 Ml) 30 ml PO TID PRN PRN Reason: Indigestion / Heartburn Aspirin (Aspirin Chewable) 81 mg PO DAILY [facility] Last Admin: 05/14/17 09:28 Dose: 81 mg Clonidine HCl (Catapres) 0.2 mg PO Q8H PRN PRN Reason: Other Enalapril Maleate (Vasotec) 5 mg PO DAILY [facility] Last Admin: 05/14/17 09:28 Dose: 5 mg Famotidine (Pepcid) 20 mg PO DAILY [facility] Folic Acid (Folic Acid) 1 mg PO DAILY [facility] Last Admin: 05/14/17 09:28 Dose: 1 mg Gabapentin (Neurontin) 300 mg PO TID [facility] Last Admin: 05/14/17 17:48 Dose: Not Given Heparin Sodium (Porcine) (Heparin) 5,000 units SC Q12 [facility] Last Admin: 05/14/17 22:14 Dose: Not Given Hydralazine HCl (Apresoline) 10 mg IVP Q6H PRN PRN Reason: Systolic Blood Pressure>160 Last Admin: 05/14/17 22:40 Dose: 10 mg Hydrochlorothiazide (Microzide) 12.5 mg PO DAILY [facility] Last Admin: 05/14/17 09:28 Dose: 12.5 mg Ceftriaxone Sodium 1 gm/ (Sodium Chloride) 100 mls @ 100 mls/hr IVPB Q24H [facility] Last Admin: 05/14/17 14:27 Dose: 100 mls/hr Loperamide HCl (Imodium) 2 mg PO Q8 PRN PRN Reason: Diarrhea Lorazepam (Ativan) 1 mg PO Q8H PRN PRN Reason: severe anxiety or ETOH withdra Methadone HCl (Methadone) 10 mg PO DAILY [facility] PRN Reason: Taper Stop: 05/16/17 16:46 Last Admin: 05/14/17 09:29 Dose: 15 mg Multivitamins (Hexavitamin) 1 tab PO DAILY [facility] Last Admin: 05/14/17 09:28 Dose: 1 tab Nitroglycerin (Nitro-Bid 2% Oint) 1 ea TOP Q6H [facility] Last Admin: 05/15/17 04:10 Dose: 1 ea Ondansetron HCl (Zofran Tab) 4 mg PO Q8 PRN PRN Reason: Nausea/Vomiting Saccharomyces Boulardii (Florastor) 250 mg PO BID [facility] Last Admin: 05/14/17 17:47 Dose: Not Given Thiamine HCl (Vitamin B1 Tab) 100 mg PO DAILY [facility] Last Admin: 05/14/17 09:28 Dose: 100 mg Trazodone HCl (Desyrel) 50 mg PO HS PRN PRN Reason: Insomnia Results - Vital Signs Recent Vital Signs: Last Vital Signs Temp 98.1 F 05/15/17 08:40 Pulse 57 L 05/15/17 08:45 Resp 20 05/15/17 08:40 BP 170/84 H 05/15/17 08:40 Pulse Ox 97 05/15/17 08:40 - Labs Result Diagrams: 05/15/17 06:09 05/15/17 06:09 Labs: Laboratory Results - last 24 hr 0605/14/17 05/14/17 11:12 15:57 21:41 WBC RBC Hgb Hct MCV MCH MCHC RDW Plt Count MPV Neut % (Auto) Lymph % (Auto) [place] % (Auto) Eos % (Auto) Baso % (Auto) Neut # Lymph # [place] # Eos # Baso # Sodium Potassium Chloride Carbon Dioxide Anion Gap BUN Creatinine Est GFR ( Amer) Est GFR (Non-Af Amer) POC Glucose (mg/dL) 195 H 181 H 119 H Random Glucose Calcium Phosphorus Magnesium Total Bilirubin AST ALT Alkaline Phosphatase Total Protein Albumin Globulin Albumin/Globulin Ratio 05/15/17 05/15/17 05/15/17 06:09 06:09 06:13 WBC 7.8 RBC 4.60 Hgb 14.4 Hct 43.8 MCV 95.1 MCH 31.2 H MCHC 32.8 L RDW 14.7 H Plt Count 180 MPV 11.3 Neut % (Auto) 66.6 Lymph % (Auto) 20.6 [place] % (Auto) 7.1 Eos % (Auto) 4.8 H Baso % (Auto) 0.9 Neut # 5.2 Lymph # 1.6 [place] # 0.5 Eos # 0.4 Baso # 0.1 Sodium 137 Potassium 3.7 Chloride 107 Carbon Dioxide 21 L Anion Gap 13 BUN 22 H Creatinine 1.3 H Est GFR ( Amer) 51 Est GFR (Non-Af Amer) 42 POC Glucose (mg/dL) 120 H Random Glucose 122 H Calcium 9.1 Phosphorus 4.6 H Magnesium 1.7 Total Bilirubin 0.7 AST 20 ALT 24 Alkaline Phosphatase 106 Total Protein 6.0 L Albumin 3.1 L Globulin 2.9 Albumin/Globulin Ratio 1.1 Attending/Attestation - Attestation I have personally seen and examined this patient.: Yes I have fully participated in the care of the patient.: Yes I have reviewed all pertinent clinical information: Yes Notes (Text): 05/15/17 09:15 Pt to help compliance encourage QD drugs will adjust
--- NOTE | 2017-05-14 10:43 | RAD ---
PROCEDURE: CHEST RADIOGRAPH, 1 VIEW HISTORY: HTN COMPARISON: None available FINDINGS: LUNGS: Focal opacity lateral mid lung likely in lateral segment of middle lobe, abutted superiorly by minor fissure. Possible pneumonia. Linear scar/atelectasis at right base. Please note that right apex is obscured by patient's mandible. PLEURA: No pneumothorax or pleural fluid seen. CARDIOVASCULAR: Normal. OSSEOUS STRUCTURES: No significant abnormalities. VISUALIZED UPPER ABDOMEN: Normal. OTHER FINDINGS: None. IMPRESSION: Possible small right middle lobe infiltrate, lateral segment. Followup advised. Linear scar/ atelectasis at right base.
--- NOTE | 2017-05-14 13:14 | PCM.PYCHPN ---
Psychiatric Progress Note - Psychiatric Progress Note Patient seen today, length of contact: 17 min Patient Chief Complaint: "So so" Problems Identified/Issues Discussed: The pt is seen, chart reviewed, case discussed with her attending and nurse. Support given, FL used briefly No new symptoms reported, improving slowly and needs more time No SEs from medications, risks discussed. After care discussed, interested in IOP Still anxious but CIWA not high. No need for intense alcohol detox Will use sx-guided meds, ie prn ativan. She doesn;t want librium Methaodne detox started last night, got 2 doses of 15 mg and will get 10 and 5 mg next 2 days and complete. Medication Change: Yes (increase gabapentin, prn artivan, methadone detox) Medical Record Reviewed: Yes Mental Status Examination - Cognitive Function Orientation: Person, Place, Time Memory: Impaired Attention: Poor Concentration: Poor Association: WNL Fund of Knowledge: Poor - Mood Mood: Anxious - Affect Affect: Constricted - Speech Speech: Slurred, Soft - Formal Thought Process Formal Thought Process: No Impairment - Suicidal Ideation Suicidal Ideation: No - Homicidal Ideation Homicidal Ideation: No Goal/Treatment Plan - Goal/Treatment Plan Need for Continued Stay: Discharge may exacerbated symptoms, Severe functional impairment Progress Toward Problem(s) and Goals/Treatment Plan: Alcohol: Ativan detox if she withdraws Gabapentin for augmentation As needed meds and vitamins Attend groups and activities FL for abstinence and CBT for relapse prevention Support and psychoeducation Consider and encourage MAT Refer to after care at IOP or rehab Opioids: Methadone detox As needed meds and vitamins Attend groups and activities FL for abstinence and CBT for relapse prevention Support and psychoeducation Consider and encourage MAT Refer to after care at an IOP or inpatient rehab Cocaine: Gabapentin for wdw sxs FL for abstinence
[2017-05-14] MEDS: Saccharomyces Boulardi 250 mg Cap PO SCH ×2 (17:45→17:47)
[2017-05-14] MEDS ORDERED: Potassium Chloride 20 mEq ER Tab PO ONE (18:38)
--- NOTE | 2017-05-14 20:55 | CP.PCM.PN ---
<Carrie Evans Anali - Last Filed: 05/14/17 21:27> Subjective - Date & Time of Evaluation Date of Evaluation: 05/14/17 Time of Evaluation: 10:35 - Subjective Subjective: Medicine Note (PGY1): Dr. Helton's service Patient was seen and examined at bedside. Patient states that she is doing better than yesterday. Patient reports headache but denies fever, chills, nausea , vomiting, blurry vision, chest pain, sob. Objective - Vital Signs/Intake and Output Vital Signs (last 24 hours): Temp Pulse Resp BP Pulse Ox 98.1 F 48 L 18 148/77 97 05/14/17 16:22 05/14/17 16:22 05/14/17 16:22 05/14/17 16:22 05/14/17 16:22 - Medications Medications: Current Medications Al Hydrox/Mg Hydrox/Simethicone (Maalox 30 Ml) 30 ml PO TID PRN PRN Reason: Indigestion / Heartburn Aspirin (Aspirin Chewable) 81 mg PO DAILY [facility] Last Admin: 05/14/17 09:28 Dose: 81 mg Clonidine HCl (Catapres) 0.2 mg PO Q8H PRN PRN Reason: Other Enalapril Maleate (Vasotec) 5 mg PO DAILY [facility] Last Admin: 05/14/17 09:28 Dose: 5 mg Folic Acid (Folic Acid) 1 mg PO DAILY [facility] Last Admin: 05/14/17 09:28 Dose: 1 mg Gabapentin (Neurontin) 300 mg PO TID [facility] Last Admin: 05/14/17 17:48 Dose: Not Given Hydralazine HCl (Apresoline) 10 mg IVP Q6H PRN PRN Reason: Systolic Blood Pressure>160 Last Admin: 05/14/17 03:34 Dose: 10 mg Hydrochlorothiazide (Microzide) 12.5 mg PO DAILY [facility] Last Admin: 05/14/17 09:28 Dose: 12.5 mg Ceftriaxone Sodium 1 gm/ (Sodium Chloride) 100 mls @ 100 mls/hr IVPB Q24H [facility] Last Admin: 05/14/17 14:27 Dose: 100 mls/hr Loperamide HCl (Imodium) 2 mg PO Q8 PRN PRN Reason: Diarrhea Lorazepam (Ativan) 1 mg PO Q8H PRN PRN Reason: severe anxiety or ETOH withdra Methadone HCl (Methadone) 10 mg PO DAILY [facility] PRN Reason: Taper Stop: 05/16/17 16:46 Last Admin: 05/14/17 09:29 Dose: 15 mg Multivitamins (Hexavitamin) 1 tab PO DAILY [facility] Last Admin: 05/14/17 09:28 Dose: 1 tab Nitroglycerin (Nitro-Bid 2% Oint) 1 ea TOP Q6H [facility] Last Admin: 05/14/17 16:39 Dose: Not Given Ondansetron HCl (Zofran Tab) 4 mg PO Q8 PRN PRN Reason: Nausea/Vomiting Saccharomyces Boulardii (Florastor) 250 mg PO BID [facility] Last Admin: 05/14/17 17:47 Dose: Not Given Thiamine HCl (Vitamin B1 Tab) 100 mg PO DAILY [facility] Last Admin: 05/14/17 09:28 Dose: 100 mg Trazodone HCl (Desyrel) 50 mg PO HS PRN PRN Reason: Insomnia - Labs Labs: 05/14/17 07:48 05/14/17 07:48 - Constitutional Appears: Well, No Acute Distress - Head Exam Head Exam: ATRAUMATIC, NORMOCEPHALIC - Eye Exam Eye Exam: EOMI, Normal appearance - ENT Exam ENT Exam: Mucous Membranes Moist - Respiratory Exam Respiratory Exam: Clear to Ausculation Bilateral, NORMAL BREATHING PATTERN - Cardiovascular Exam Cardiovascular Exam: REGULAR RHYTHM, +S1, +S2 - GI/Abdominal Exam GI & Abdominal Exam: Soft, Normal Bowel Sounds - Extremities Exam Extremities Exam: Normal Capillary Refill, Normal Inspection - Neurological Exam Neurological Exam: Alert, Altered, Awake, Oriented x3 Neuro motor strength exam: Left Upper Extremity: 5, Right Upper Extremity: 5, Left Lower Extremity: 5, Right Lower Extremity: 5 - Psychiatric Exam Psychiatric exam: Normal Affect, Normal Mood - Skin Skin Exam: Dry, Normal Color, Warm Assessment and Plan - Assessment and Plan (Free Text) Assessment: 1. Hypertensive urgency * Patient with SBP>200 and DBP>100 * Hydralazine 10mg IV Q6H PRN for SBP >160 * Clonidine 0.1mg PO Q8H prn for SBP > 180 * Nitroglycerin 2% ointment * Norvasc 10mg PO once daily * Vasotec 5mg PO daily * HCTZ 12.5MG PO daily * Goal: Decrease in MAP by 25% in the first [address] Jensen Consulted -> help appreciated As per cardiology: Recommend adjusting medications to once daily due to patient noncompliance: Norvasc 10 mg daily Increase dose of enalapril to 10 mg daily Clonidine may be causing bradycardia Will continue to adjust medication as needed F/u echocardiogram in the AM 2. Diabetes type 2 * HgbA1c:6.1 (05/14/17) * Well-controlled 3. Alchohol ,Opiate and Coccaine abuse Dr. Micky Garrison Consulted -> help appreciated * Management per psychiatry recommendation * Opiate withdrawal: Pt was started on methadone taper 05/13/17 4. Elevated BUN and Creatinine * Renal U/S (05/13/17): Increased echogenicity of the bilateral renal cortices suggestive for medical renal disease 5. Urinary Frequency * f/u urine culture in the AM * Empirical Rocephin 1gm IVPB Q24H started on 05/14/17 6. Prophylactic measures * SCD * Florastor 250 mg PO BID * Pepcid 20mg PO daily * Heparin 5000 units SC Q12 <Dai Helton V - Last Filed: 05/15/17 09:37> Objective - Vital Signs/Intake and Output Vital Signs (last 24 hours): Temp Pulse Resp BP Pulse Ox 98.1 F 57 L 20 170/84 H 97 05/15/17 08:40 05/15/17 08:45 05/15/17 08:40 05/15/17 08:40 05/15/17 08:40 Intake and Output: 05/15/17 05/15/17 06:59 18:59 Intake Total 350 Balance 350 - Medications Medications: Current Medications Al Hydrox/Mg Hydrox/Simethicone (Maalox 30 Ml) 30 ml PO TID PRN PRN Reason: Indigestion / Heartburn Aspirin (Aspirin Chewable) 81 mg PO DAILY [facility] Last Admin: 05/14/17 09:28 Dose: 81 mg Clonidine HCl (Catapres) 0.2 mg PO Q8H PRN PRN Reason: Other Enalapril Maleate (Vasotec) 5 mg PO DAILY [facility] Last Admin: 05/14/17 09:28 Dose: 5 mg Famotidine (Pepcid) 20 mg PO DAILY [facility] Folic Acid (Folic Acid) 1 mg PO DAILY [facility] Last Admin: 05/14/17 09:28 Dose: 1 mg Gabapentin (Neurontin) 300 mg PO TID [facility] Last Admin: 05/14/17 17:48 Dose: Not Given Heparin Sodium (Porcine) (Heparin) 5,000 units SC Q12 [facility] Last Admin: 05/14/17 22:14 Dose: Not Given Hydralazine HCl (Apresoline) 10 mg IVP Q6H PRN PRN Reason: Systolic Blood Pressure>160 Last Admin: 05/14/17 22:40 Dose: 10 mg Hydrochlorothiazide (Microzide) 12.5 mg PO DAILY [facility] Last Admin: 05/14/17 09:28 Dose: 12.5 mg Ceftriaxone Sodium 1 gm/ (Sodium Chloride) 100 mls @ 100 mls/hr IVPB Q24H [facility] Last Admin: 05/14/17 14:27 Dose: 100 mls/hr Loperamide HCl (Imodium) 2 mg PO Q8 PRN PRN Reason: Diarrhea Lorazepam (Ativan) 1 mg PO Q8H PRN PRN Reason: severe anxiety or ETOH withdra Methadone HCl (Methadone) 10 mg PO DAILY [facility] PRN Reason: Taper Stop: 05/16/17 16:46 Last Admin: 05/14/17 09:29 Dose: 15 mg Multivitamins (Hexavitamin) 1 tab PO DAILY [facility] Last Admin: 05/14/17 09:28 Dose: 1 tab Nitroglycerin (Nitro-Bid 2% Oint) 1 ea TOP Q6H [facility] Last Admin: 05/15/17 04:10 Dose: 1 ea Ondansetron HCl (Zofran Tab) 4 mg PO Q8 PRN PRN Reason: Nausea/Vomiting Saccharomyces Boulardii (Florastor) 250 mg PO BID [facility] Last Admin: 05/14/17 17:47 Dose: Not Given Thiamine HCl (Vitamin B1 Tab) 100 mg PO DAILY [facility] Last Admin: 05/14/17 09:28 Dose: 100 mg Trazodone HCl (Desyrel) 50 mg PO HS PRN PRN Reason: Insomnia - Labs Labs: 05/15/17 06:09 05/15/17 06:09 Attending/Attestation - Attestation I have personally seen and examined this patient.: Yes I have fully participated in the care of the patient.: Yes I have reviewed all pertinent clinical information, including history, physical exam and plan: Yes Notes (Text): This is late computer entry for 05/14/17. Patient seen, examined and case discussed with day-time resident. Patient seen during morning rounds. Patient's blood pressure uncontrolled this morning SBP: 200s. During my rounds following administration of anti- hypertensives, patient's blood pressure improved to 160s/80s. With patient's permission, I spoke with patient's son regarding that she is on the floor because of patients uncontrolled high blood pressure; patient does not want me to discuss alcohol/opiate/cocaine history with the son. Followed-up with the nurse in the afternoon, patient's SBP: 140/70s and reports no complaints. Patient is reporting urinary frequency and given abnormal UA, will treat empirically for urinary tract infection, until urine culture results. Assessment/Plan 1. Hypertensive urgency * Patient with SBP>200 and DBP>100 * Hydralazine 10mg IV Q6H PRN for SBP >160 * Clonidine 0.2mg PO Q8H prn for SBP > 180 * Nitroglycerin 2% ointment * Norvasc 10mg PO once daily * Vasotec 5mg PO daily * HCTZ 12.5MG PO daily * Increased enalapril 10mg PO daily * f/u echocardiogram * Goal: Decrease in MAP by 25% in the first [address] Jensen Consulted -> help appreciated As per cardiology: Recommend adjusting medications to once daily due to patient noncompliance: Norvasc 10 mg daily Increase dose of enalapril to 10 mg daily Clonidine may be causing bradycardia Will continue to adjust medication as needed F/u echocardiogram in the AM 2. Diabetes type 2 * HgbA1c:6.1 (05/14/17) * Well-controlled 3. Alchohol ,Opiate and Coccaine abuse Dr. Micky Garrison Consulted -> help appreciated * Management per psychiatry recommendation * Opiate withdrawal: Pt was started on methadone taper 05/13/17 4. Elevated BUN and Creatinine * Renal U/S (05/13/17): Increased echogenicity of the bilateral renal cortices suggestive for medical renal disease 5. Urinary Frequency * f/u urine culture in the AM * Empirical Rocephin 1gm IVPB Q24H started on 05/14/17 6. Prophylactic measures * SCD * Florastor 250 mg PO BID * Pepcid 20mg PO daily * Heparin 5000 units SC Q12
[2017-05-14 22:40] VITALS: RESP 20
[2017-05-15] MEDS: Nitroglycerin 2% Ointment Foilpak UD TOP SCH ×3 (04:10→16:00)
[2017-05-15 06:27] LABS: BASO # 0.1 K/uL (0.0-0.2); BASO % 0.9 % (0.0-2.0); EOS # 0.4 K/uL (0.0-0.7); EOS % 4.8 % (0.0-4.0); HEMATOCRIT 43.8 % (34.0-47.0); LYMPH # 1.6 K/uL (1.0-4.3); LYMPH % 20.6 % (20.0-40.0); MEAN CELL VOLUME 95.1 fL (81.0-99.0); MEAN CORPUSCULAR HEMOGLOBIN 31.2 pg (27.0-31.0); MEAN CORPUSCULAR HGB CONC 32.8 g/dL (33.0-37.0); MEAN PLATELET VOLUME 11.3 fL (7.2-11.7); MONO # 0.5 K/uL (0.0-0.8); MONO % 7.1 % (0.0-10.0); RED CELL DISTRIBUTION WIDTH 14.7 % (11.5-14.5); WHITE BLOOD COUNT 7.8 K/uL (4.8-10.8)
[2017-05-15 06:52] LABS: POTASSIUM 3.7 mmol/L (3.6-5.2)
[2017-05-15 06:54] LABS: ALB/GLOB RATIO 1.1 (1.0-2.1); BILIRUBIN,TOTAL 0.7 mg/dL (0.2-1.3)
[2017-05-15 06:55] LABS: CALCIUM 9.1 mg/dl (8.6-10.4); MAGNESIUM 1.7 mg/dL (1.6-2.3); PHOSPHOROUS 4.6 mg/dL (2.5-4.5)
[2017-05-15] MEDS: Multiple Vitamins Tab PO SCH (09:34)
[2017-05-15] MEDS: Saccharomyces Boulardi 250 mg Cap PO SCH ×2 (09:34→17:27)
--- NOTE | 2017-05-15 10:11 | CP.PCM.PN ---
<Kj Aponte - Last Filed: 05/15/17 10:09> Subjective - Date & Time of Evaluation Date of Evaluation: 05/15/17 Time of Evaluation: 10:09 - Subjective Subjective: Progress Note for Dr. Soler Pt seen and examined at bedside. Pt doing well overnight with no acute events. Pt's BP continues to be elevated. Pt complains of mild, constant headache on the left side of her head. Pt denies CP, SOB, N/V/D. Objective - Vital Signs/Intake and Output Vital Signs (last 24 hours): Temp Pulse Resp BP Pulse Ox 98.1 F 57 L 20 186/88 H 97 05/15/17 08:40 05/15/17 08:45 05/15/17 08:40 05/15/17 09:33 05/15/17 08:40 Intake and Output: 05/15/17 05/15/17 06:59 18:59 Intake Total 350 Balance 350 - Medications Medications: Current Medications Al Hydrox/Mg Hydrox/Simethicone (Maalox 30 Ml) 30 ml PO TID PRN PRN Reason: Indigestion / Heartburn Amlodipine Besylate (Norvasc) 10 mg PO DAILY [facility] Aspirin (Aspirin Chewable) 81 mg PO DAILY [facility] Last Admin: 05/15/17 09:33 Dose: 81 mg Clonidine HCl (Catapres) 0.2 mg PO Q8H PRN PRN Reason: Other Enalapril Maleate (Vasotec) 10 mg PO DAILY [facility] Famotidine (Pepcid) 20 mg PO DAILY [facility] Folic Acid (Folic Acid) 1 mg PO DAILY [facility] Last Admin: 05/15/17 09:34 Dose: 1 mg Gabapentin (Neurontin) 300 mg PO TID [facility] Last Admin: 05/15/17 09:34 Dose: 300 mg Heparin Sodium (Porcine) (Heparin) 5,000 units SC Q12 [facility] Last Admin: 05/15/17 09:34 Dose: 5,000 units Hydralazine HCl (Apresoline) 10 mg IVP Q6H PRN PRN Reason: Systolic Blood Pressure>160 Last Admin: 05/14/17 22:40 Dose: 10 mg Hydrochlorothiazide (Microzide) 12.5 mg PO DAILY [facility] Last Admin: 05/15/17 09:33 Dose: 12.5 mg Ceftriaxone Sodium 1 gm/ (Sodium Chloride) 100 mls @ 100 mls/hr IVPB Q24H [facility] Last Admin: 05/14/17 14:27 Dose: 100 mls/hr Loperamide HCl (Imodium) 2 mg PO Q8 PRN PRN Reason: Diarrhea Lorazepam (Ativan) 1 mg PO Q8H PRN PRN Reason: severe anxiety or ETOH withdra Methadone HCl (Methadone) 10 mg PO DAILY [facility] PRN Reason: Taper Stop: 05/16/17 16:46 Last Admin: 05/15/17 09:33 Dose: 10 mg Multivitamins (Hexavitamin) 1 tab PO DAILY [facility] Last Admin: 05/15/17 09:34 Dose: 1 tab Nitroglycerin (Nitro-Bid 2% Oint) 1 ea TOP Q6H [facility] Last Admin: 05/15/17 09:34 Dose: 1 ea Ondansetron HCl (Zofran Tab) 4 mg PO Q8 PRN PRN Reason: Nausea/Vomiting Saccharomyces Boulardii (Florastor) 250 mg PO BID [facility] Last Admin: 05/15/17 09:34 Dose: 250 mg Thiamine HCl (Vitamin B1 Tab) 100 mg PO DAILY [facility] Last Admin: 05/15/17 09:34 Dose: 100 mg Trazodone HCl (Desyrel) 50 mg PO HS PRN PRN Reason: Insomnia - Labs Labs: 05/15/17 06:09 05/15/17 06:09 - Constitutional Appears: Well, No Acute Distress - Head Exam Head Exam: ATRAUMATIC, NORMAL INSPECTION, NORMOCEPHALIC - Respiratory Exam Respiratory Exam: Clear to Ausculation Bilateral, NORMAL BREATHING PATTERN. absent: Rales - Cardiovascular Exam Cardiovascular Exam: RRR, +S1, +S2 - GI/Abdominal Exam GI & Abdominal Exam: Soft, Normal Bowel Sounds. absent: Tenderness - Extremities Exam Extremities Exam: Normal Inspection. absent: Calf Tenderness, Pedal Edema - Neurological Exam Neurological Exam: Alert, Awake, Oriented x3 - Skin Skin Exam: Intact, Normal Color, Warm Assessment and Plan (1) Hypertensive urgency Assessment & Plan: BP medication adjusted: Norvasc 10 mg daily added Enalapril increased to 10 mg daily Will continue to monitor and adjust medication as needed Bradycardia not significant at this time Status: Acute <Mauricio Soler - Last Filed: 05/15/17 14:53> Objective - Vital Signs/Intake and Output Vital Signs (last 24 hours): Temp Pulse Resp BP Pulse Ox 98.1 F 56 L 20 160/70 H 97 05/15/17 08:40 05/15/17 12:39 05/15/17 08:40 05/15/17 12:39 05/15/17 08:40 Intake and Output: 05/15/17 05/15/17 06:59 18:59 Intake Total 350 Balance 350 - Medications Medications: Current Medications Al Hydrox/Mg Hydrox/Simethicone (Maalox 30 Ml) 30 ml PO TID PRN PRN Reason: Indigestion / Heartburn Amlodipine Besylate (Norvasc) 10 mg PO DAILY [facility] Last Admin: 05/15/17 11:23 Dose: 10 mg Aspirin (Aspirin Chewable) 81 mg PO DAILY [facility] Last Admin: 05/15/17 09:33 Dose: 81 mg Clonidine HCl (Catapres) 0.2 mg PO Q8H PRN PRN Reason: Other Enalapril Maleate (Vasotec) 10 mg PO DAILY [facility] Famotidine (Pepcid) 20 mg PO DAILY [facility] Folic Acid (Folic Acid) 1 mg PO DAILY [facility] Last Admin: 05/15/17 09:34 Dose: 1 mg Gabapentin (Neurontin) 300 mg PO TID [facility] Last Admin: 05/15/17 13:30 Dose: 300 mg Heparin Sodium (Porcine) (Heparin) 5,000 units SC Q12 [facility] Last Admin: 05/15/17 09:34 Dose: 5,000 units Hydralazine HCl (Apresoline) 10 mg IVP Q6H PRN PRN Reason: Systolic Blood Pressure>160 Last Admin: 05/14/17 22:40 Dose: 10 mg Hydrochlorothiazide (Microzide) 12.5 mg PO DAILY [facility] Last Admin: 05/15/17 09:33 Dose: 12.5 mg Ceftriaxone Sodium 1 gm/ (Sodium Chloride) 100 mls @ 100 mls/hr IVPB Q24H [facility] Last Admin: 05/15/17 13:30 Dose: 100 mls/hr Loperamide HCl (Imodium) 2 mg PO Q8 PRN PRN Reason: Diarrhea Lorazepam (Ativan) 1 mg PO Q8H PRN PRN Reason: severe anxiety or ETOH withdra Methadone HCl (Methadone) 10 mg PO DAILY [facility] PRN Reason: Taper Stop: 05/16/17 16:46 Last Admin: 05/15/17 09:33 Dose: 10 mg Multivitamins (Hexavitamin) 1 tab PO DAILY [facility] Last Admin: 05/15/17 09:34 Dose: 1 tab Nicotine (Nicoderm Cq) 1 patch TD DAILY [facility] Nitroglycerin (Nitro-Bid 2% Oint) 1 ea TOP Q6H [facility] Last Admin: 05/15/17 09:34 Dose: 1 ea Ondansetron HCl (Zofran Tab) 4 mg PO Q8 PRN PRN Reason: Nausea/Vomiting Saccharomyces Boulardii (Florastor) 250 mg PO BID [facility] Last Admin: 05/15/17 09:34 Dose: 250 mg Thiamine HCl (Vitamin B1 Tab) 100 mg PO DAILY [facility] Last Admin: 05/15/17 09:34 Dose: 100 mg Trazodone HCl (Desyrel) 50 mg PO HS PRN PRN Reason: Insomnia - Labs Labs: 05/15/17 06:09 05/15/17 06:09 Attending/Attestation - Attestation I have personally seen and examined this patient.: Yes I have fully participated in the care of the patient.: Yes I have reviewed all pertinent clinical information, including history, physical exam and plan: Yes Notes (Text): 05/15/17 14:52 Pt bp still elevated will increase dose of meds\ salt restriction no bradycardia
--- NOTE | 2017-05-15 11:36 | PCM.PYCHPN ---
Psychiatric Progress Note - Psychiatric Progress Note Patient seen today, length of contact: 16 min Patient Chief Complaint: "I'm better" Problems Identified/Issues Discussed: The pt is seen, chart reviewed, case discussed with her attending and nurse. Looks much better Detox is almost finished - has one last dose of methadone left, 5 mg, tomorrow am. Wants to goto an IOP: [facility] in [place], [address], recommended. Support given, OR used briefly No new symptoms reported, improving well. No SEs from medications, risks discussed. Medication Change: Yes (detox ending) Medical Record Reviewed: Yes Mental Status Examination - Cognitive Function Orientation: Person, Place, Time Memory: Impaired Attention: Poor Concentration: Poor Association: WNL Fund of Knowledge: Poor - Mood Mood: Anxious - Affect Affect: Constricted - Speech Speech: Soft - Formal Thought Process Formal Thought Process: No Impairment - Suicidal Ideation Suicidal Ideation: No - Homicidal Ideation Homicidal Ideation: No Goal/Treatment Plan - Goal/Treatment Plan Need for Continued Stay: Other (medical) Progress Toward Problem(s) and Goals/Treatment Plan: Alcohol: Ativan detox if she withdraws Gabapentin for augmentation As needed meds and vitamins Attend groups and activities OR for abstinence and CBT for relapse prevention Support and psychoeducation Consider and encourage MAT Refer to after care at IOP or rehab Opioids: Methadone detox As needed meds and vitamins Attend groups and activities OR for abstinence and CBT for relapse prevention Support and psychoeducation Consider and encourage MAT Refer to after care at an IOP or inpatient rehab Cocaine: Gabapentin for wdw sxs OR for abstinence Psych will sign off Pt can be dc'ed tomorrow, after her last dose of methaodne Refer to [facility]
--- NOTE | 2017-05-15 12:48 | CP.PCM.PN ---
<Carrie Evans E - Last Filed: 05/15/17 20:55> Subjective - Date & Time of Evaluation Date of Evaluation: 05/15/17 Time of Evaluation: 07:30 - Subjective Subjective: Medicine Note (PGY1 1): Dr. Helton's Service Patient was seen and examined at bedside. Patient stated that she is doing well. Patient has complains of constipation/ abd pain due to no bowel movement for 3 days. Patient was then given lactulose which alleviated patient's symptoms. Patient continues to have elevated BP and minimal headaches. Patient denies blurry vision, fever, chills, chest pain, sob, nausea, vomiting, abd pain , weakness and numbness. Objective - Vital Signs/Intake and Output Vital Signs (last 24 hours): Temp Pulse Resp BP Pulse Ox 98.1 F 56 L 20 160/70 H 97 05/15/17 08:40 05/15/17 12:39 05/15/17 08:40 05/15/17 12:39 05/15/17 08:40 Intake and Output: 05/15/17 05/15/17 06:59 18:59 Intake Total 350 Balance 350 - Medications Medications: Current Medications Al Hydrox/Mg Hydrox/Simethicone (Maalox 30 Ml) 30 ml PO TID PRN PRN Reason: Indigestion / Heartburn Amlodipine Besylate (Norvasc) 10 mg PO DAILY [facility] Last Admin: 05/15/17 11:23 Dose: 10 mg Aspirin (Aspirin Chewable) 81 mg PO DAILY [facility] Last Admin: 05/15/17 09:33 Dose: 81 mg Clonidine HCl (Catapres) 0.2 mg PO Q8H PRN PRN Reason: Other Enalapril Maleate (Vasotec) 10 mg PO DAILY [facility] Famotidine (Pepcid) 20 mg PO DAILY [facility] Folic Acid (Folic Acid) 1 mg PO DAILY [facility] Last Admin: 05/15/17 09:34 Dose: 1 mg Gabapentin (Neurontin) 300 mg PO TID [facility] Last Admin: 05/15/17 09:34 Dose: 300 mg Heparin Sodium (Porcine) (Heparin) 5,000 units SC Q12 [facility] Last Admin: 05/15/17 09:34 Dose: 5,000 units Hydralazine HCl (Apresoline) 10 mg IVP Q6H PRN PRN Reason: Systolic Blood Pressure>160 Last Admin: 05/14/17 22:40 Dose: 10 mg Hydrochlorothiazide (Microzide) 12.5 mg PO DAILY [facility] Last Admin: 05/15/17 09:33 Dose: 12.5 mg Ceftriaxone Sodium 1 gm/ (Sodium Chloride) 100 mls @ 100 mls/hr IVPB Q24H [facility] Last Admin: 05/14/17 14:27 Dose: 100 mls/hr Loperamide HCl (Imodium) 2 mg PO Q8 PRN PRN Reason: Diarrhea Lorazepam (Ativan) 1 mg PO Q8H PRN PRN Reason: severe anxiety or ETOH withdra Methadone HCl (Methadone) 10 mg PO DAILY [facility] PRN Reason: Taper Stop: 05/16/17 16:46 Last Admin: 05/15/17 09:33 Dose: 10 mg Multivitamins (Hexavitamin) 1 tab PO DAILY [facility] Last Admin: 05/15/17 09:34 Dose: 1 tab Nitroglycerin (Nitro-Bid 2% Oint) 1 ea TOP Q6H [facility] Last Admin: 05/15/17 09:34 Dose: 1 ea Ondansetron HCl (Zofran Tab) 4 mg PO Q8 PRN PRN Reason: Nausea/Vomiting Saccharomyces Boulardii (Florastor) 250 mg PO BID [facility] Last Admin: 05/15/17 09:34 Dose: 250 mg Thiamine HCl (Vitamin B1 Tab) 100 mg PO DAILY [facility] Last Admin: 05/15/17 09:34 Dose: 100 mg Trazodone HCl (Desyrel) 50 mg PO HS PRN PRN Reason: Insomnia - Labs Labs: 05/15/17 06:09 05/15/17 06:09 - Constitutional Appears: Well, No Acute Distress - Head Exam Head Exam: NORMAL INSPECTION, NORMOCEPHALIC - Eye Exam Eye Exam: EOMI, Normal appearance - ENT Exam ENT Exam: Mucous Membranes Moist, Normal Exam - Respiratory Exam Respiratory Exam: Clear to Ausculation Bilateral, NORMAL BREATHING PATTERN - Cardiovascular Exam Cardiovascular Exam: REGULAR RHYTHM, +S1, +S2 - GI/Abdominal Exam GI & Abdominal Exam: Soft, Normal Bowel Sounds - Extremities Exam Extremities Exam: Full ROM, Normal Capillary Refill, Normal Inspection - Neurological Exam Neurological Exam: Alert, Altered, Awake, Oriented x3 - Psychiatric Exam Psychiatric exam: Normal Affect, Normal Mood - Skin Skin Exam: Dry, Normal Color, Warm Assessment and Plan - Assessment and Plan (Free Text) Assessment: 1. Hypertensive urgency * Patient with SBP>200 and DBP>100 * Hydralazine 10mg IV Q6H PRN for SBP >160 * Nitroglycerin 2% ointment * Norvasc 10mg PO once daily * Vasotec 5mg PO daily * HCTZ 12.5MG PO daily * Goal: Decrease in MAP by 25% in the first 2 hours * Monitor BP DR. Jensen Consulted -> help appreciated As per cardiology: Recommend adjusting medications to once daily due to patient noncompliance: Norvasc 10 mg daily Increase dose of enalapril to 10 mg daily Clonidine may be causing bradycardia Will continue to adjust medication as needed F/u echocardiogram in the AM 2. Diabetes type 2 * HgbA1c:6.1 (05/14/17) * Well-controlled 3. Alchohol ,Opiate and Coccaine abuse Dr. Micky Garrison Consulted -> help appreciated * Management per psychiatry recommendation * Opiate withdrawal: Pt was started on methadone taper 05/13/17 * As per psychiatry,, Pt can be dc'ed tomorrow, after her last dose of methaodne 4. Elevated BUN and Creatinine * Renal U/S (05/13/17): Increased echogenicity of the bilateral renal cortices suggestive for medical renal disease 5. Urinary Frequency * f/u urine culture in the AM - Pending results * Empirical Rocephin 1gm IVPB Q24H started on 05/14/17 6. Prophylactic measures * SCD * Florastor 250 mg PO BID * Pepcid 20mg PO daily * Heparin 5000 units SC Q12 <Dai Helton V - Last Filed: 05/15/17 21:30> Objective - Vital Signs/Intake and Output Vital Signs (last 24 hours): Temp Pulse Resp BP Pulse Ox 98.0 F 60 20 152/91 H 100 05/15/17 15:25 05/15/17 15:25 05/15/17 15:25 05/15/17 15:25 05/15/17 15:25 - Medications Medications: Current Medications Al Hydrox/Mg Hydrox/Simethicone (Maalox 30 Ml) 30 ml PO TID PRN PRN Reason: Indigestion / Heartburn Amlodipine Besylate (Norvasc) 10 mg PO DAILY [facility] Last Admin: 05/15/17 11:23 Dose: 10 mg Aspirin (Aspirin Chewable) 81 mg PO DAILY [facility] Last Admin: 05/15/17 09:33 Dose: 81 mg Famotidine (Pepcid) 20 mg PO DAILY [facility] Folic Acid (Folic Acid) 1 mg PO DAILY [facility] Last Admin: 05/15/17 09:34 Dose: 1 mg Gabapentin (Neurontin) 300 mg PO TID [facility] Last Admin: 05/15/17 17:27 Dose: 300 mg Heparin Sodium (Porcine) (Heparin) 5,000 units SC Q12 [facility] Last Admin: 05/15/17 09:34 Dose: 5,000 units Hydralazine HCl (Apresoline) 10 mg IVP Q6H PRN PRN Reason: Systolic Blood Pressure>160 Last Admin: 05/14/17 22:40 Dose: 10 mg Hydrochlorothiazide (Hydrodiuril) 25 mg PO DAILY [facility] Ceftriaxone Sodium 1 gm/ (Sodium Chloride) 100 mls @ 100 mls/hr IVPB Q24H [facility] Last Admin: 05/15/17 13:30 Dose: 100 mls/hr Lisinopril (Zestril) 10 mg PO DAILY [facility] Last Admin: 05/15/17 17:27 Dose: 10 mg Loperamide HCl (Imodium) 2 mg PO Q8 PRN PRN Reason: Diarrhea Lorazepam (Ativan) 1 mg PO Q8H PRN PRN Reason: severe anxiety or ETOH withdra Methadone HCl (Methadone) 5 mg PO DAILY [facility] PRN Reason: Taper Stop: 05/16/17 16:46 Last Admin: 05/15/17 09:33 Dose: 10 mg Multivitamins (Hexavitamin) 1 tab PO DAILY [facility] Last Admin: 05/15/17 09:34 Dose: 1 tab Nicotine (Nicoderm Cq) 1 patch TD DAILY [facility] Last Admin: 05/15/17 15:00 Dose: 1 patch Ondansetron HCl (Zofran Tab) 4 mg PO Q8 PRN PRN Reason: Nausea/Vomiting Saccharomyces Boulardii (Florastor) 250 mg PO BID [facility] Last Admin: 05/15/17 17:27 Dose: 250 mg Thiamine HCl (Vitamin B1 Tab) 100 mg PO DAILY [facility] Last Admin: 05/15/17 09:34 Dose: 100 mg Trazodone HCl (Desyrel) 50 mg PO HS PRN PRN Reason: Insomnia - Labs Labs: 05/15/17 06:09 05/15/17 06:09 Attending/Attestation - Attestation I have personally seen and examined this patient.: Yes I have fully participated in the care of the patient.: Yes I have reviewed all pertinent clinical information, including history, physical exam and plan: Yes Notes (Text): Patient seen, examined and case discussed with day-time resident. Patient seen during afternoon rounds. Patient's blood pressure is better controlled today and symptoms relieved. Patient is currently methadone taper, last dose tomorrow. Patient is reporting urinary frequency and given abnormal UA, will treat empirically for urinary tract infection, until urine culture results. Assessment/Plan 1. Uncontrolled Hypertensive * Cardiology, DR. Soler, consult -> help appreciated * Stopped clonidine/nitroglycerin * Hydralazine 10mg IV Q6H PRN for SBP >160 * Norvasc 10mg PO once daily * Changed to Lisinopril 10mg PO daily * Increased to HCTZ 25 MG PO daily * Echocardiogram (05/15/17): normal LV systolic function, normal chamber size, trace MR, mild TR, LVH 2. Diabetes type 2 * HgbA1c:6.1 (05/14/17) * Well-controlled 3. Alchohol ,Opiate and Coccaine abuse * Dr. Micky Garrison Consulted -> help appreciated * Management per psychiatry recommendation * Opiate withdrawal: Pt was started on methadone taper 05/13/17 4. Elevated BUN and Creatinine * Renal U/S (05/13/17): Increased echogenicity of the bilateral renal cortices suggestive for medical renal disease * Monitor BUN/Cr 5. Urinary Frequency * f/u urine culture in the AM * Empirical Rocephin 1gm IVPB Q24H started on 05/14/17 6. Prophylactic measures * SCD * Florastor 250 mg PO BID * Pepcid 20mg PO daily * Heparin 5000 units SC Q12
--- NOTE | 2017-05-15 12:51 | CARD ---
APPROVED REPORT EXAM: Two-dimensional and M-mode echocardiogram with Doppler and color Doppler. Other Information Quality : GoodRhythm : NSR INDICATION COCAIN RISK FACTORS Hypertension Hyperlipidemia Diabetes M-Mode DIMENSIONS RVDd1.33 (2.1-3.2cm)Left Atrium (MM)3.67 (2.5-4.0cm) IVSd1.17 (0.7-1.1cm)Aortic Root2.58 (2.2-3.7cm) LVDd5.04 (4.0-5.6cm)Aortic Cusp Exc.1.84 (1.5-2.0cm) PWd1.52 (0.7-1.1cm)FS (%) 43 % LVDs2.89 (2.0-3.8cm)LVEF (%)73 (>50%) Aortic Valve AoV Peak Xjdgszmy820.3cm/Shaye Peak GR.8mmHg Mitral Valve MV E Ztxoltsf56.2cm/sMV A Jrwlmzai69.9cm/sE/A ratio1.4 TDI E/Lateral E'0.0E/Medial E'0.0 Tricuspid Valve TR Peak Ofhihczj067yc/sTR Peak Gr.19muMyHNRQ67tyNs LEFT VENTRICLE The left ventricle is normal size. There is mild concentric left ventricular hypertrophy. The left ventricular function is normal. The left ventricular ejection fraction is within the normal range. There is normal LV segmental wall motion. The left ventricular diastolic function is normal. RIGHT VENTRICLE The right ventricle is normal size. There is normal right ventricular wall thickness. ATRIA The left atrium size is normal. The right atrium size is normal. AORTIC VALVE The aortic valve is normal in structure. MITRAL VALVE Mitral regurgitation is trace. TRICUSPID VALVE There is mild tricuspid regurgitation. <Conclusion> Normal LV systolic function. Normal chamber size. Trace MR. Mild TR. LVH.
[2017-05-15] MEDS ORDERED: Bisacodyl 5mg EC Tab PO ONE (21:24)
[2017-05-16 09:20] VITALS: TEMP 98.3; O2SAT 97
[2017-05-16] MEDS: Multiple Vitamins Tab PO SCH (09:35)
[2017-05-16] MEDS: Saccharomyces Boulardi 250 mg Cap PO SCH (09:35)
--- NOTE | 2017-05-16 11:47 | CP.PCM.PN ---
Subjective - Date & Time of Evaluation Date of Evaluation: 05/16/17 Time of Evaluation: 11:44 - Subjective Subjective: Progress Note for Dr. Soler Pt seen and examined at bedside. No acute events overnight as per nursing. Pt's BP remains elevated after adjustment of medications yesterday. Pt will be going home today. Pt denies CP, SOB, N/V/D, dizziness, headache. Objective - Vital Signs/Intake and Output Vital Signs (last 24 hours): Temp Pulse Resp BP Pulse Ox 98.3 F 59 L 20 195/81 H 97 05/16/17 07:00 05/16/17 07:00 05/16/17 07:00 05/16/17 07:00 05/16/17 07:00 Intake and Output: 05/16/17 05/16/17 06:59 18:59 Intake Total 350 Balance 350 - Medications Medications: Current Medications Al Hydrox/Mg Hydrox/Simethicone (Maalox 30 Ml) 30 ml PO TID PRN PRN Reason: Indigestion / Heartburn Amlodipine Besylate (Norvasc) 10 mg PO DAILY [facility] Last Admin: 05/16/17 09:36 Dose: 10 mg Aspirin (Aspirin Chewable) 81 mg PO DAILY [facility] Last Admin: 05/16/17 09:36 Dose: 81 mg Famotidine (Pepcid) 20 mg PO DAILY [facility] Last Admin: 05/16/17 09:36 Dose: 20 mg Folic Acid (Folic Acid) 1 mg PO DAILY [facility] Last Admin: 05/16/17 09:37 Dose: 1 mg Gabapentin (Neurontin) 300 mg PO TID [facility] Last Admin: 05/16/17 09:36 Dose: 300 mg Heparin Sodium (Porcine) (Heparin) 5,000 units SC Q12 [facility] Last Admin: 05/16/17 09:39 Dose: Not Given Hydralazine HCl (Apresoline) 10 mg IVP Q6H PRN PRN Reason: Systolic Blood Pressure>160 Last Admin: 05/14/17 22:40 Dose: 10 mg Hydrochlorothiazide (Hydrodiuril) 25 mg PO DAILY [facility] Last Admin: 05/16/17 09:37 Dose: 25 mg Ceftriaxone Sodium 1 gm/ (Sodium Chloride) 100 mls @ 100 mls/hr IVPB Q24H [facility] Last Admin: 05/15/17 13:30 Dose: 100 mls/hr Loperamide HCl (Imodium) 2 mg PO Q8 PRN PRN Reason: Diarrhea Lorazepam (Ativan) 1 mg PO Q8H PRN PRN Reason: severe anxiety or ETOH withdra Methadone HCl (Methadone) 5 mg PO DAILY [facility] PRN Reason: Taper Stop: 05/16/17 16:46 Last Admin: 05/16/17 09:41 Dose: 5 mg Multivitamins (Hexavitamin) 1 tab PO DAILY [facility] Last Admin: 05/16/17 09:35 Dose: 1 tab Nicotine (Nicoderm Cq) 1 patch TD DAILY [facility] Last Admin: 05/16/17 09:39 Dose: Not Given Ondansetron HCl (Zofran Tab) 4 mg PO Q8 PRN PRN Reason: Nausea/Vomiting Saccharomyces Boulardii (Florastor) 250 mg PO BID [facility] Last Admin: 05/16/17 09:35 Dose: 250 mg Thiamine HCl (Vitamin B1 Tab) 100 mg PO DAILY [facility] Last Admin: 05/16/17 09:37 Dose: 100 mg Trazodone HCl (Desyrel) 50 mg PO HS PRN PRN Reason: Insomnia - Labs Labs: 05/15/17 06:09 05/15/17 06:09 - Constitutional Appears: Well, No Acute Distress - Head Exam Head Exam: ATRAUMATIC, NORMAL INSPECTION, NORMOCEPHALIC - Respiratory Exam Respiratory Exam: Clear to Ausculation Bilateral, NORMAL BREATHING PATTERN. absent: Rales - Cardiovascular Exam Cardiovascular Exam: Rubs, +S1, +S2 - GI/Abdominal Exam GI & Abdominal Exam: Soft, Normal Bowel Sounds. absent: Tenderness - Extremities Exam Extremities Exam: absent: Pedal Edema - Neurological Exam Neurological Exam: Alert, Awake, Oriented x3 - Skin Skin Exam: Intact, Normal Color, Warm Assessment and Plan (1) Hypertensive urgency Assessment & Plan: Consider adding afterload reduction agent, hydralazine or nitroglycerin Continue current medication regimen Pt encourage to reduce salt in diet Pt encouraged to be compliant with medication Status: Acute
[2017-05-16 12:20] VITALS: PULSE 68
[2017-05-16 16:52] VITALS: BP 217/92
--- NOTE | 2017-05-16 19:36 | CP.PCM.DIS ---
Provider - Provider Date of Admission: 05/12/17 22:05 Attending physician: Dai Helton DO Time Spent in preparation of Discharge (in minutes): 45 Hospital Course - Lab Results Lab Results: Micro Results 05/14/17 18:35 Urine,Clean Catch Urine Culture - Final No Growth (<1,000 CFU/ML) Most Recent Lab Values WBC 7.8 K/uL (4.8-10.8) 05/15/17 06:09 RBC 4.60 Mil/uL (3.80-5.20) 05/15/17 06:09 Hgb 14.4 g/dL (11.0-16.0) 05/15/17 06:09 Hct 43.8 % (34.0-47.0) 05/15/17 06:09 MCV 95.1 fL (81.0-99.0) 05/15/17 06:09 MCH 31.2 pg (27.0-31.0) H 05/15/17 06:09 MCHC 32.8 g/dL (33.0-37.0) L 05/15/17 06:09 RDW 14.7 % (11.5-14.5) H 05/15/17 06:09 Plt Count 180 K/uL (130-400) 05/15/17 06:09 MPV 11.3 fL (7.2-11.7) 05/15/17 06:09 Neut % (Auto) 66.6 % (50.0-75.0) 05/15/17 06:09 Lymph % (Auto) 20.6 % (20.0-40.0) 05/15/17 06:09 Bates % (Auto) 7.1 % (0.0-10.0) 05/15/17 06:09 Eos % (Auto) 4.8 % (0.0-4.0) H 05/15/17 06:09 Baso % (Auto) 0.9 % (0.0-2.0) 05/15/17 06:09 Neut # 5.2 K/uL (1.8-7.0) 05/15/17 06:09 Lymph # 1.6 K/uL (1.0-4.3) 05/15/17 06:09 Bates # 0.5 K/uL (0.0-0.8) 05/15/17 06:09 Eos # 0.4 K/uL (0.0-0.7) 05/15/17 06:09 Baso # 0.1 K/uL (0.0-0.2) 05/15/17 06:09 Sodium 137 mmol/L (132-148) 05/15/17 06:09 Potassium 3.7 mmol/L (3.6-5.2) 05/15/17 06:09 Chloride 107 mmol/L (98-107) 05/15/17 06:09 Carbon Dioxide 21 mmol/L (22-30) L 05/15/17 06:09 Anion Gap 13 (10-20) 05/15/17 06:09 BUN 22 mg/dL (7-17) H 05/15/17 06:09 Creatinine 1.3 MG/DL (0.7-1.2) H 05/15/17 06:09 Est GFR ( Amer) 51 05/15/17 06:09 Est GFR (Non-Af Amer) 42 05/15/17 06:09 POC Glucose (mg/dL) 117 mg/dL (65-110) H 05/16/17 11:23 Random Glucose 122 mg/dL (65-105) H 05/15/17 06:09 Hemoglobin A1c 6.1 % (4.2-6.5) 05/14/17 07:48 Calcium 9.1 mg/dl (8.6-10.4) 05/15/17 06:09 Phosphorus 4.6 mg/dL (2.5-4.5) H 05/15/17 06:09 Magnesium 1.7 mg/dL (1.6-2.3) 05/15/17 06:09 Total Bilirubin 0.7 mg/dL (0.2-1.3) 05/15/17 06:09 AST 20 U/L (14-36) 05/15/17 06:09 ALT 24 U/L (9-52) 05/15/17 06:09 Alkaline Phosphatase 106 U/L (38-126) 05/15/17 06:09 Total Protein 6.0 g/dL (6.3-8.3) L 05/15/17 06:09 Albumin 3.1 g/dL (3.5-5.0) L 05/15/17 06:09 Globulin 2.9 gm/dL (2.2-3.9) 05/15/17 06:09 Albumin/Globulin Ratio 1.1 (1.0-2.1) 05/15/17 06:09 Triglycerides 148 mg/dL (0-149) 05/14/17 07:48 Cholesterol 227 mg/dL (0-199) H 05/14/17 07:48 LDL Cholesterol Direct 134 mg/dL (0-129) H 05/14/17 07:48 HDL Cholesterol 57 mg/dL (30-70) 05/14/17 07:48 Urine Color Yellow (YELLOW) 05/12/17 20:24 Urine Clarity Hazy (Clear) 05/12/17 20:24 Urine pH 6.0 (5.0-8.0) 05/12/17 20:24 Ur Specific [place] 1.019 (1.003-1.030) 05/12/17 20:24 Urine Protein 3+ mg/dL (NEGATIVE) H 05/12/17 20:24 Urine Glucose (UA) 1+ mg/dL (Normal) 05/12/17 20:24 Urine Ketones Negative mg/dL (NEGATIVE) 05/12/17 20:24 Urine Blood Negative (NEGATIVE) 05/12/17 20:24 Urine Nitrate Negative (NEGATIVE) 05/12/17 20:24 Urine Bilirubin Negative (NEGATIVE) 05/12/17 20:24 Urine Urobilinogen Normal mg/dL (0.2-1.0) 05/12/17 20:24 Ur Leukocyte Esterase 1+ Felix/uL (Negative) H 05/12/17 20:24 Urine WBC (Auto) 31 /hpf (0-5) H 05/12/17 20:24 Urine RBC (Auto) 3 /hpf (0-3) 05/12/17 20:24 Ur Squamous Epith Cells 5 /hpf (0-5) 05/12/17 20:24 Urine Bacteria Few (<OCC) H 05/12/17 20:24 Urine Opiates Screen Positive (NEGATIVE) 05/12/17 20:24 Urine Methadone Screen Negative (NEGATIVE) 05/12/17 20:24 Ur Barbiturates Screen Negative (NEGATIVE) 05/12/17 20:24 Ur Phencyclidine Scrn Negative (NEGATIVE) 05/12/17 20:24 Ur Amphetamines Screen Negative (NEGATIVE) 05/12/17 20:24 U Benzodiazepines Scrn Negative (NEGATIVE) 05/12/17 20:24 U Oth Cocaine Metabols Positive (NEGATIVE) 05/12/17 20:24 U Cannabinoids Screen Negative (NEGATIVE) 05/12/17 20:24 Alcohol, Quantitative < 10 mg/dl (0-10) 05/12/17 20:24 - Hospital Course Hospital Course: As per admission documentation; CC: Hypertensive Urgency HPI: Patient is a 56 year old AA female admitted to detox on 05/12/17 for heroin, cocaine and alcohol abuse. Patient reports she has not taken her BP meds for several days. Admits she feels a little lethargic after Ativan given in Detox this AM. She reports relapsing to cocaine and heroin over the past few months after being off drugs over the past 10 years. She Denies chest pain, SOB, headache, visual changes, fevers, chills, nausea, vomiting, diarrhea, constipation. She reports no complaints. Hospital course: Patient was admitted on 05/11/[address] [facility] detox clinic for hypertensive urgency with BP of 200/102. Patient was aggressively medically managed on multiple hypertensive medications with a goal of decrease in MAP by 25% within the first 24 hours. Patient was placed on telemetry since blood pressure was refractory to clonidine and for asymptomatic bradycardia. Patient had a renal ultrasound due to elevated creatinine and BUN, which showed increased echogenicity of the bilateral renal cortices suggestive for medical renal disease. Also, patient had an echocardiogram due to her presentation of asymptomatic bradycardia, which showed a LV ef of >50% and mild LVH . In adddition, theatre director, Dr. Soler was consulted on this case and agreed with patient's current inpatient medical management. Furthermore, Psychiatry, Dr. Micky Garrison was consulted on this case due to patient's alcohol withdrawal and history of opioid, cocaine and alcohol use. Fadia Suggs recommended methadone taper for opioid withdrawal; Librium detox for alcohol withdraws with Gabapentin for augmentation and Gabapentin for cocaine withdrawal symptoms and referral to [facility]. Patient's BP was continuously monitored with discharge plans for 05/16/17 if blood pressure was better controlled. However, on 05/16/17, after administration of morning hypertensive medications, patient's BP remained elevated at 217/92. Patient was informed of her elevated BP and will not be discharge until her BP was better managed. Patient refused and stated that she wanted to leave. Patient was then educated on the risk of leaving the hospital against medical advise with such elevated BP such as: [place], Stroke, Kidney failure and possibly . However, patient remained adamant about leaving AMA and refused morning labs. Patient was given the option of a dose of hydralazine in order to lower her BP but she refused. Patient proceeded to leave against medical advise and subsequently a code echo was called. Patient left the hospital without signing an AMA form. 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 Discharge Exam - Head Exam Head Exam: ATRAUMATIC, NORMAL INSPECTION, NORMOCEPHALIC - Eye Exam Eye Exam: EOMI, Normal appearance - ENT Exam ENT Exam: Mucous Membranes Moist, Normal Exam - Respiratory Exam Respiratory Exam: Clear to PA & Lateral, NORMAL BREATHING PATTERN - Cardiovascular Exam Cardiovascular Exam: REGULAR RHYTHM, +S1, +S2 - GI/Abdominal Exam GI & Abdominal Exam: Normal Bowel Sounds, Soft - Extremities Exam Extremities exam: normal capillary refill, normal inspection - Neurological Exam Neurological exam: Alert, Oriented x3 - Psychiatric Exam Psychiatric exam: Agitated - Skin Skin Exam: Dry, Normal Color, Warm Discharge Plan - Discharge Medications Prescriptions: amLODIPine [Norvasc] 10 mg PO DAILY #30 tab Ciprofloxacin [Cipro] 500 mg PO BID #4 tab Gabapentin [Neurontin] 300 mg PO TID #90 cap hydroCHLOROthiazide [Hydrodiuril] 25 mg PO DAILY #30 tab Lisinopril [Zestril] 20 mg PO DAILY #30 tab - Follow Up Plan Condition: FAIR Disposition: AGAINST MEDICAL ADVICE Instructions: Hypertension (DC), Hypertension (GEN)
--- NOTE | 2017-05-17 15:19 | CARD ---
APPROVED REPORT EKG Measurement Heart [id number] <Conclusion> Sinus bradycardia Septal infarct, age undetermined T wave abnormality, consider lateral ischemia Abnormal ECG
--- NOTE | 2017-05-17 15:22 | CARD ---
APPROVED REPORT EKG Measurement Heart [id number] <Conclusion> Sinus bradycardia with premature supraventricular complexes Possible Anterior infarct, age undetermined Abnormal ECG
== END 2017-05-16 16:09 | disposition left against medical advice (07) | DRG 743 ==
LOC: C.ER 19:56 → C.7D 22:05 → C.6T 05-13 10:10 → C.9E 05-13 14:34 → C.6T 05-13 14:37
PROVIDERS: ADMIT Hospitalist; ATTEND Hospitalist
PROC: HZ2ZZZZ Detoxification Services for Substance Abuse Treatment (ICD-10-PCS; principal; 2017-05-12)
PROC: GZ56ZZZ Individual Psychotherapy, Supportive (ICD-10-PCS; 2017-05-12)
DX: F11.23 Opioid dependence with withdrawal (principal); F10.230 Alcohol dependence with withdrawal, uncomplicated; E87.6 Hypokalemia; E11.9 Type 2 diabetes mellitus without complications; I16.0 Hypertensive urgency; K59.00 Constipation, unspecified; Z72.0 Tobacco use; Y90.1 Blood alcohol level of 20-39 mg/100 ml; F14.23 Cocaine dependence with withdrawal; Z79.4 Long term (current) use of insulin

== ENCOUNTER 2017-12-22 15:36 | Inpatient (IN) | payer MEDICAID ==
--- NOTE | 2017-12-22 16:50 | C.PDOC ---
History Of Present Illness 57 y/o female with past medical history of hypertension and diabetes presents to the ED for detox from heroin. Patient reports that she snorts and last heroin intake was today around noon. Denies any further medical complaints. Time Seen by Provider: 12/22/17 16:10 Chief Complaint (Nursing): Substance Abuse History Per: Patient History/Exam Limitations: no limitations Past Medical History Reviewed: Historical Data, Nursing Documentation, Vital Signs Vital Signs: Last Vital Signs Temp 98.4 F 12/22/17 16:25 Pulse 84 12/22/17 16:25 Resp 14 12/22/17 16:25 BP 223/96 H 12/22/17 16:25 Pulse Ox 96 12/22/17 16:52 - Medical History PMH: Diabetes, HTN Denies: Hepatitis, HIV, Seizures, Sexually Transmitted Disease Surgical History: No Surg Hx - [facility] DETOXIFICATION SERVICES FOR SUBSTANCE ABUSE TREATMENT (05/12/17) INDIVIDUAL PSYCHOTHERAPY, SUPPORTIVE (05/12/17) Family History: States: Unknown Family Hx - Social History Hx Alcohol Use: Yes Hx Substance Use: Yes (Heroin /cocaine snorts) - Immunization History Hx Influenza Vaccination: No Review Of Systems Except As Marked, All Systems Reviewed And Found Negative. (As per HPI, otherwise negative) Psych: Positive for: Other (Detox from heroin) Physical Exam - Physical Exam Appears: Other (uncomfortable) Skin: Normal Color, Warm, Dry Eye(s): bilateral: Normal Inspection, PERRL, EOMI Nose: Normal Throat: Normal Neck: Normal, Supple Cardiovascular: Rhythm Regular, No Murmur Respiratory: Normal Breath Sounds, No Accessory Muscle Use Gastrointestinal/Abdominal: Normal Exam, Soft Back: Normal Inspection Extremity: Normal ROM, No Deformity Neurological/Psych: Oriented x3 ED Course And Treatment - Laboratory Results Result Diagrams: 12/22/17 16:45 O2 Sat by Pulse Oximetry: 96 (RA) Pulse Ox Interpretation: Normal Medical Decision Making Medical Decision Making: Time: 16:45 Initial Impression: susbstance abuse Plan: Alcohol serum CMP Drug screen CBc w/ diff AES crisis evaluation Urinalysis Reevalaution Scribe Attestation: Documented by Yariel Tirado acting as a scribe for Ene Elizondo MD. MD Freedman Attestation: All medical record entries made by the Scribe were at my direction and personally dictated by me. I have reviewed the chart and agree that the record accurately reflects my personal performance of the history, physical exam, medical decision making, and the department course for this patient. I have also personally directed, reviewed, and agree with the discharge instructions and disposition. Disposition Counseled Patient/Family Regarding: Studies Performed - Disposition Disposition: HOSPITALIZED Disposition Time: 17:31 Condition: STABLE Forms: [facility] (Citizen Of [place]) - POA Present On Arrival: None - Clinical Impression Clinical Impression: Drug dependence Physician Patient Turnover Patient Signed Over To: Frederick Rice Handoff Comments: pending medical clearance for detox
[2017-12-22 16:54] LABS: BASO # 0.1 K/uL (0.0-0.2); BASO % 1.2 % (0.0-2.0); EOS # 0.3 K/uL (0.0-0.7); EOS % 3.6 % (0.0-4.0); HEMOGLOBIN 16.1 g/dL (11.0-16.0); LYMPH # 1.6 K/uL (1.0-4.3); LYMPH % 21.5 % (20.0-40.0); MEAN CORPUSCULAR HGB CONC 33.3 g/dL (33.0-37.0); MEAN PLATELET VOLUME 10.2 fL (7.2-11.7); MONO # 0.6 K/uL (0.0-0.8); NEUT # 4.9 K/uL (1.8-7.0); NEUT % 65.7 % (50.0-75.0); NRBC % 0.1 % (0.0-2.0); RBC 5.2 Mil/uL (3.80-5.20); RED CELL DISTRIBUTION WIDTH 13.5 % (11.5-14.5); WHITE BLOOD COUNT 7.5 K/uL (4.8-10.8)
[2017-12-22 17:03] LABS: SQUAMOUS EPITHIAL 7 /hpf (0-5); URINE BACTERIA OCC (<OCC); URINE BILIRUBIN NEGATIVE (NEGATIVE); URINE BLOOD 1+ (NEGATIVE); URINE CLARITY Hazy (Clear); URINE COLOR Yellow (YELLOW); URINE GLUCOSE (UA) 1+ mg/dL (Normal); URINE LEUKOCYTE ESTERASE TRACE Leu/uL (Negative); URINE NITRATE NEGATIVE (NEGATIVE); URINE PROTEIN 3+ mg/dL (NEGATIVE); URINE UROBILINOGEN NORMAL mg/dL (0.2-1.0)
[2017-12-22 17:21] LABS: BARBITURATES, UR NEGATIVE (NEGATIVE); BENZODIAZEPINES, UR NEGATIVE (NEGATIVE); PHENCYCLIDINE, UR NEGATIVE (NEGATIVE)
[2017-12-22 17:22] LABS: OPIATES, UR POSITIVE (NEGATIVE)
[2017-12-22 17:35] LABS: ALB/GLOB RATIO 1.1 (1.0-2.1); ALBUMIN 3.9 g/dL (3.5-5.0); ALT/SGPT 31 U/L (9-52); AST/SGOT 42 U/L (14-36); BLOOD UREA NITROGEN 23 mg/dL (7-17); CALCIUM 9.4 mg/dl (8.6-10.4); GFR AFRICAN-AMERICAN 37; GFR NON-AFRICAN AMERICAN 31
--- NOTE | 2017-12-23 02:05 | PCM.BM ---
<Richelle Jarquin - Last Filed: 12/23/17 02:03> Treatment Plan Problems - Problems identified on initial assessmt Opiate Dependence Date Initiated: 12/23/17 Time Initiated: 02:04 Assessment reference: NA Status: Active Problem 2 Date Initiated: 12/23/17 Time Initiated: 02:05 Assessment reference: NA Status: Active Treatment assets and liabiliti Patient Assests: ADL independent Patient Liabilities: physical pain, substance abuse - Milieu Protocol Maintain good personal hygiene: daily Encourage regular showers, daily Remind patient to perform daily oral care, daily Assist patient to perform ADL's Maintain personal safety: every shift Educate patient to report safety concerns to staff, every shift Monitor environment for contraband/sharps Medication safety: Monitor for expected outcome, potential side effects: every shift, Assess barriers to learning: every shift, Assess readiness for medication education: every shift <Micky Garrison - Last Filed: 12/23/17 23:48> - Diagnosis (1) Opioid use disorder, severe, dependence Status: Acute Interventions: 12/23/17 23:48 * Assess 7x/week regarding severity of withdrawal * Educate regarding risks, benefits, side effects and alternatives of medications * Use Motivational Interviewing for abstinence * Use CBT for relapse prevention * Medication management for withdrawal symptoms * Encourage medication assisted treatment *
[2017-12-23] MEDS: Multiple Vitamins Tab PO SCH (09:04)
--- NOTE | 2017-12-23 15:01 | PCM.PSYCH ---
Initial Psychiatric Evaluation - Initial Psychiatric Evaluation Type of Admission: Voluntary Legal Status: Capacity Chief Complaint (in patient's own words): "I'm withdrawing" History of Present Illness and Precipitating Events: The patient is seen, chart reviewed and case discussed. Pt is a 57 y.o. AA female with 3 children (ages 18, 27, 38). She is single, lives with her youngest daughter. She is on disability due to sequelae of previous strokes (pt states she has occasional numbness). Pt states she has snorted 6-10 bags of heroin per day since relapsing approximately 3 years ago. She lsat used 12/22/17 around noon. She has smoked cocaine "for a long time." She smokes 0.5 ppd and drinks approximately 2 beers per day. Denies use of marijuana, xanax, klonopin, PCP, valium, adderall or mushrooms. Pt complains of withdrawal symptoms. She also uses cocaine sometimes. Pt denies suicidal ideation, denies hearing voices, denies feeling depressed. Past psych history: Pt denies depression, anxiety or any other psych history. Family psych history: Pt states her sister is bipolar, has substance abuse disorder. PMH: "I've had strokes." No weakness reported. Diabetes, HTN, neuropathy. Patient currently being treated for UTI. Current Medications: Active Medications Generic Name Dose Route Start Last Admin Trade Name Freq PRN Reason Stop Dose Admin Amlodipine Besylate 10 mg 12/23/17 08:33 12/23/17 09:03 Norvasc PO 10 mg DAILY ENRIQUE Administration Clonidine HCl 0.1 mg 12/23/17 00:26 Catapres PO Q8 PRN COWS Score More or Equal to 5 Folic Acid 1 mg 12/23/17 10:00 12/23/17 09:04 Folic Acid PO Not Given DAILY ENRIQUE Gabapentin 100 mg 12/23/17 14:00 12/23/17 13:16 Neurontin PO 100 mg TID ENRIQUE Administration Hydroxyzine HCl 25 mg 12/23/17 10:39 Atarax PO Q4H PRN Anxiety Ibuprofen 400 mg 12/23/17 00:31 Motrin Tab PO Q6H PRN Pain, moderate (4-7) Lisinopril 20 mg 12/23/17 10:00 12/23/17 09:03 Zestril PO 20 mg DAILY ENRIQUE Administration Loperamide HCl 2 mg 12/23/17 00:26 Imodium PO Q8 PRN Diarrhea Multivitamins 1 tab 12/23/17 10:00 12/23/17 09:04 Hexavitamin PO Not Given DAILY ENRIQUE Nicotine 1 patch 12/23/17 10:45 12/23/17 11:28 Nicoderm Cq TD 1 patch DAILY ENRIQUE Administration Nitrofurantoin Macrocrystals 100 mg 12/23/17 10:45 12/23/17 11:27 Macrobid PO 100 mg Q12H ENRIQUE Administration Ondansetron HCl 4 mg 12/23/17 00:26 Zofran Tab PO Q8 PRN Nausea/Vomiting Thiamine HCl 100 mg 12/23/17 10:00 12/23/17 09:05 Vitamin B1 Tab PO Not Given DAILY ENRIQUE Past Psychiatric History - Past Psychiatric History Previous Treatment History: None Pertinent Medical Hx (Current Medical&Sleep Prob, Allergies): Allergies Allergy/AdvReac Type Severity Reaction Status Date / Time No Known Allergies Allergy Verified 12/22/17 16:30 Aspirin 81 mg PO DAILY #30 05/16/17 amLODIPine [Norvasc] 10 mg PO DAILY #30 tab 05/16/17 Gabapentin [Neurontin] 300 mg PO DAILY 12/22/17 Review of Systems - Neurological Neurological: Numbness (Occasional b/l foot numbness) - Psychiatric Psychiatric: Abnormal Sleep Pattern, Anhedonia, Anxiety, Change in Appetite, Difficulty Concentrating. absent: Depression, Hallucinations, Homicidal Ideation, Suicidal Ideation Mental Status Examination - Personal Presentation Personal Presentation: Looks stated age - Affect Affect: Constricted - Motor Activity Motor Activity: Calm - Reliability in Providing Information Reliability in Providing Information: Good - Speech Speech: Organized - Mood Mood: Depressed - Formal Thought Process Formal Thought Process: No Impairment - Cognitive Functions Orientation: Person, Place, Situation, Time Sensorium: Alert Attention/Concentration: Attentive Estimate of Intelligence: Average Judgement: Intact, as evidence by: Insight regarding need for hospitalization Memory: Recent intact, as evidence by: Ability to recall events of the day, Remote intact, as evidenced by: Abilit to recall sig. life events - Risk Risk: Withdrawal, Diminished functioning - Strength & Assets Inventory Strength & Assets Inventory: Cooperative DSM 5 DX - DSM 5 DSM 5 Diagnosis: Opioid withdrawal Opioid use d/o - severe Cocaine use d/o - moderate/severe - Recommended/Plan of Treatment Treatment Recommendations and Plan of Treatment: Methadone detox As needed medications All risks, benefits and alternatives of the meds discussed, and the pt agreed and understood. Attend groups and activities Supportive therapy and psychoeducation [place] for abstinence CBT for relapse prevention Encourage MAT Refer to rehab or IOP, and self-help groups Smoking cessation with [place] Nicotine patch 34 min Projected ELOS: 4-5 days Prognosis: Good - Smoking Cessation Smoking Cessation Initiated: Yes
[2017-12-23] MEDS ORDERED: Magnesium Hydroxide Susp 30 ml UD PO ONE (22:05)
[2017-12-24] MEDS: Multiple Vitamins Tab PO SCH (09:08)
--- NOTE | 2017-12-24 11:18 | PCM.PYCHPN ---
Psychiatric Progress Note - Psychiatric Progress Note Patient seen today, length of contact: 15 Patient Chief Complaint: "I'm withdrawing, I haven't pooped in 1 week" Problems Identified/Issues Discussed: Continue medications Support and psychoeducation daily Attend groups and activities daily After care planning by GEOFFREY Pt is being treated for possible UTI, though urine culture results demonstrated probably contamination. Pt reports continued "mild ALFONSO because of my BP." Pt states she is sleeping ok, eating well, is less fatigued and overall feeling better despite a mild ALFONSO. Is concerned about constipation and requests laxative , reports last BM was 1 wk ago. Diagnostic Results: Urine culture final- multiple species, probable contamination. BP continues trending high, max overnight 188/79. Pulse low, 52. Medication Change: Yes (detox changes daily) Medical Record Reviewed: Yes Mental Status Examination - Cognitive Function Orientation: Person, Place, Situation, Time - Mood Mood: Depressed - Affect Affect: Constricted - Formal Thought Process Formal Thought Process: No Impairment - Suicidal Ideation Suicidal Ideation: No - Homicidal Ideation Homicidal Ideation: No Goal/Treatment Plan - Goal/Treatment Plan Need for Continued Stay: Remain at risks for inpatient hospitalization, Discharge may exacerbated symptoms, Severe functional impairment Progress Toward Problem(s) and Goals/Treatment Plan: Methadone detox As needed medications All risks, benefits and alternatives of the meds discussed, and the pt agreed and understood. Attend groups and activities Supportive therapy and psychoeducation [place] for abstinence CBT for relapse prevention Encourage MAT Refer to rehab or IOP, and self-help groups Smoking cessation with [place] Nicotine patch 15 min
--- NOTE | 2017-12-24 11:19 | CP.PCM.HP ---
History of Present Illness - History of Present Illness History of Present Illness: HPI: Patient is a 57 year old female with a past medical history of hypertension , DM, CVA x2 and polysubstance abuse. Patient was admitted to detox for heroin and cocaine detox. Patient was found to be hypertensive, for which hospitalist was consulted. Patient snorts 6-10 bags of heroin daily and 1-2 bottles of cocaine 3 times per week. She has been using heroin for 3 years and cocaine for over 30 years. Patient admits to constipation (5 days) and denies all other withdrawal symptoms at this time. She says she often gets headaches and feels lightheaded because of her blood pressure. The patient states she takes amlodipine 10mg daily and benzapril 40mg daily for her blood pressure. Patient does not check her blood pressure at home. Patient currently complains of headache and occasional lightheadedness, as well as neuropathy in her feet. Patient denies chest pain, abdominal pain, nausea, vomiting, fevers leg pain/ swelling, and fevers. PMD: Dr. Ramey PMHx: HTN, DM with neuropathy, CVA (2005, 2009), Heroin, cocaine use SurgHx: denies FamHx: Mother-HTN, DM SocHx: 1/2ppd x40yrs, ETOH-2 beers/day for 2 years; lives in [place] with family; unemployed Allergies: NKDA Medications: As per the patient- Amlodipine 10mg daily, Benzapril 40mg daily, aspirin 81mg daily, gabapentin 100mg daily Present on Admission - Present on Admission Any Indicators Present on Admission: No Past Patient History - Past Medical History & Family History Past Medical History?: Yes - Past Social History Smoking Status: Smoker Currrent Status Unknown - CARDIAC Hx Hypertension: Yes - PULMONARY Hx Tuberculosis: No - NEUROLOGICAL Hx Seizures: No - ENDOCRINE/METABOLIC Hx Diabetes Mellitus Type 2: Yes - HEMATOLOGICAL/ONCOLOGICAL Hx Human Immunodeficiency Virus (HIV): No - MUSCULOSKELETAL/RHEUMATOLOGICAL Hx Falls: No - GENITOURINARY/GYNECOLOGICAL Hx Sexually Transmitted Disorders: No - PSYCHIATRIC Hx Substance Use: Yes - SURGICAL HISTORY Hx Surgeries: No - ANESTHESIA Hx Anesthesia: No Meds Allergies/Adverse Reactions: Allergies Allergy/AdvReac Type Severity Reaction Status Date / Time No Known Allergies Allergy Verified 12/22/17 16:30 Physical Exam - Constitutional Appears: No Acute Distress - Head Exam Head Exam: ATRAUMATIC, NORMAL INSPECTION - Eye Exam Eye Exam: EOMI, PERRL Additional comments: Arcus senalis - ENT Exam ENT Exam: Mucous Membranes Moist - Respiratory Exam Respiratory Exam: Clear to Auscultation Bilateral, NORMAL BREATHING PATTERN. absent: Rales, Rhonchi, Wheezes, Respiratory Distress - Cardiovascular Exam Cardiovascular Exam: REGULAR RHYTHM, +S1, +S2 - GI/Abdominal Exam GI & Abdominal Exam: Normal Bowel Sounds, Soft, Tenderness (LLQ). absent: Distended, Firm - Extremities Exam Extremities exam: Positive for: pedal edema (b/l), pedal pulses present ( dorsalis pedis, posterior tibialis b/l) - Neurological Exam Neurological exam: Alert, Oriented x3 - Psychiatric Exam Psychiatric exam: Normal Affect, Normal Mood - Skin Skin Exam: Dry, Intact, Normal Color, Warm Results - Vital Signs Recent Vital Signs: Last Vital Signs Temp 98.4 F 12/23/17 21:29 Pulse 56 L 12/24/17 10:55 Resp 18 12/24/17 00:12 BP 146/81 12/24/17 10:55 Pulse Ox 97 12/24/17 00:12 - Labs Result Diagrams: 12/24/17 17:18 12/24/17 17:18 Assessment & Plan (1) Hypertension Assessment and Plan: Uncontrolled hypertension; as per patient, takes Amlodipine 10mg PO daily and Benzapril 40mg PO daily for HTN. * Continue Amlodipine 10mg PO daily * Started Lisinopril 20mg PO daily * Consider starting HCTZ 12.5 if creatinine is below 1.5 (f/u CMP) * Continue to monitor vitals. * EKG: f/u results Previous admission on 05/13/17: * Echo: EF 73%; normal systolic function; normal chamber size; trace MR; mild TR ; LVH * EKG: sinus bradycardia at 52bpm; septal infact, undetermined age; T wave abnormality Status: Acute (2) Diabetes mellitus with neuropathy Assessment and Plan: Patient states she no longer takes diabetic medications because her PMD said she no longer needs medications. * Continue home medication for neuropathy: Gabapentin 100mg PO TID * A1c: f/u results * Accuchecks ACHS Status: Acute (3) History of CVA (cerebrovascular accident) Assessment and Plan: Patient has a history of CVA with no residual deficits (2005, 2009)/ * Continue taking home medication- Aspirin 81mg PO daily * Started Crestor 5mg PO HS Status: Acute (4) Polysubstance abuse Assessment and Plan: Management as per Detox team. Status: Acute (5) Constipation Assessment and Plan: Constipated x5days * Abdominal xray: no active disease * Colace 100mg BID Status: Acute
[2017-12-24] MEDS ORDERED: Bisacodyl 5mg EC Tab PO ONE (14:28)
--- NOTE | 2017-12-24 14:28 | RAD ---
HISTORY: constipation COMPARISON: No prior. FINDINGS: BOWEL: Normal. No obstruction. No free air. BONES: Normal. OTHER FINDINGS: None. IMPRESSION: No active disease.
[2017-12-24 17:23] LABS: BASO % 0.7 % (0.0-2.0); EOS # 0.4 K/uL (0.0-0.7); EOS % 5.7 % (0.0-4.0); HEMOGLOBIN 15.6 g/dL (11.0-16.0); LYMPH # 1.6 K/uL (1.0-4.3); LYMPH % 23.6 % (20.0-40.0); MEAN CELL VOLUME 94.2 fL (81.0-99.0); MEAN CORPUSCULAR HEMOGLOBIN 32.2 pg (27.0-31.0); MEAN CORPUSCULAR HGB CONC 34.2 g/dL (33.0-37.0); MEAN PLATELET VOLUME 11.2 fL (7.2-11.7); MONO # 0.6 K/uL (0.0-0.8); MONO % 8.8 % (0.0-10.0); NEUT # 4.1 K/uL (1.8-7.0); NEUT % 61.2 % (50.0-75.0); RBC 4.85 Mil/uL (3.80-5.20); RED CELL DISTRIBUTION WIDTH 13.7 % (11.5-14.5); WHITE BLOOD COUNT 6.7 K/uL (4.8-10.8)
[2017-12-24 17:40] LABS: ALB/GLOB RATIO 1.3 (1.0-2.1); ALBUMIN 3.7 g/dL (3.5-5.0); CALCIUM 9.1 mg/dl (8.6-10.4)
[2017-12-25] MEDS: Multiple Vitamins Tab PO SCH (09:03)
--- NOTE | 2017-12-25 09:34 | CP.PCM.PN ---
Subjective - Date & Time of Evaluation Date of Evaluation: 12/25/17 Time of Evaluation: 07:00 - Subjective Subjective: Medicine Progress Note: Patient was seen and examined at bedside in the AM. Patient states she had a small headache earlier but it went away. She denies shortness of breath, chest pain, nausea, vomiting, diarrhea or constipation. Per nurse the patient refused all blood work this morning. Objective - Vital Signs/Intake and Output Vital Signs (last 24 hours): Temp Pulse Resp BP Pulse Ox 98.2 F 50 L 18 169/79 H 99 12/25/17 05:44 12/25/17 05:44 12/25/17 05:44 12/25/17 05:44 12/25/17 05:44 - Medications Medications: Current Medications Amlodipine Besylate (Norvasc) 10 mg PO DAILY [facility] Last Admin: 12/25/17 09:04 Dose: 10 mg Aspirin (Aspirin Chewable) 81 mg PO DAILY [facility] Last Admin: 12/25/17 09:03 Dose: 81 mg Clonidine HCl (Catapres) 0.1 mg PO Q8 PRN PRN Reason: COWS Score More or Equal to 5 Last Admin: 12/24/17 21:46 Dose: 0.1 mg Docusate Sodium (Colace) 100 mg PO BID [facility] Last Admin: 12/25/17 09:03 Dose: 100 mg Folic Acid (Folic Acid) 1 mg PO DAILY [facility] Last Admin: 12/25/17 09:03 Dose: 1 mg Gabapentin (Neurontin) 300 mg PO TID [facility] Last Admin: 12/25/17 09:02 Dose: 300 mg Hydroxyzine HCl (Atarax) 25 mg PO Q4H PRN PRN Reason: Anxiety Ibuprofen (Motrin Tab) 400 mg PO Q6H PRN PRN Reason: Pain, moderate (4-7) Lisinopril (Zestril) 20 mg PO DAILY [facility] Last Admin: 12/25/17 09:02 Dose: 20 mg Methadone HCl (Methadone) 15 mg PO Q24H [facility] PRN Reason: Taper Stop: 12/29/17 09:59 Last Admin: 12/25/17 09:03 Dose: 15 mg Multivitamins (Hexavitamin) 1 tab PO DAILY [facility] Last Admin: 12/25/17 09:03 Dose: 1 tab Nicotine (Nicoderm Cq) 1 patch TD DAILY [facility] Last Admin: 12/25/17 09:03 Dose: 1 patch Nitrofurantoin Macrocrystals (Macrobid) 100 mg PO Q12H [facility] Last Admin: 12/24/17 21:46 Dose: 100 mg Ondansetron HCl (Zofran Tab) 4 mg PO Q8 PRN PRN Reason: Nausea/Vomiting Rosuvastatin Calcium (Crestor) 5 mg PO HS [facility] Last Admin: 12/24/17 21:48 Dose: Not Given Thiamine HCl (Vitamin B1 Tab) 100 mg PO DAILY [facility] Last Admin: 12/25/17 09:02 Dose: 100 mg Trazodone HCl (Desyrel) 50 mg PO HS PRN PRN Reason: Insomnia - Labs Labs: 12/24/17 17:18 12/24/17 17:18 - Constitutional Appears: No Acute Distress - Head Exam Head Exam: ATRAUMATIC, NORMAL INSPECTION - Eye Exam Eye Exam: EOMI - ENT Exam ENT Exam: Mucous Membranes Moist - Respiratory Exam Respiratory Exam: Clear to Ausculation Bilateral, NORMAL BREATHING PATTERN - Cardiovascular Exam Cardiovascular Exam: REGULAR RHYTHM, +S1, +S2 - GI/Abdominal Exam GI & Abdominal Exam: Soft, Normal Bowel Sounds. absent: Tenderness - Extremities Exam Extremities Exam: Normal Inspection - Neurological Exam Neurological Exam: Alert, Awake, Oriented x3 - Psychiatric Exam Psychiatric exam: Normal Affect, Normal Mood - Skin Skin Exam: Normal Color, Warm Assessment and Plan - Assessment and Plan (Free Text) Assessment: 1.) Hypertension - Amlodipine 10mg PO daily - Lisinopril 20mg PO daily - Started HCTZ 12.5 - EKG: Quinten Sinus - Echo (05/13/17): EF 73%; normal systolic function; normal chamber size; trace MR; mild TR; LVH 2.) Diabetes mellitus with neuropathy - Gabapentin 100mg PO TID - Accuchecks ACHS 3.) History of CVA (cerebrovascular accident) Patient has a history of CVA with no residual deficits (2005, 2009)/ - Aspirin 81mg PO daily - Crestor 5mg PO HS 4.) Polysubstance abuse Management as per Detox team 5.) Constipation - Abdominal xray: no active disease - Colace 100mg BID Prescriptions for HTN: Amlodipine 10mg PO daily; Lisinopril 20mg PO daily; Started HCTZ 12.5 have been placed in the chart when patient is ready for discharge. Please have patient follow up with PMD 1-2 weeks after discharge. Thank you for this consult. Case discussed with Dr. Sunitha Ayala PGY-1
--- NOTE | 2017-12-25 15:08 | PCM.PYCHPN ---
Psychiatric Progress Note - Psychiatric Progress Note Patient seen today, length of contact: 15 Patient Chief Complaint: "I feel better and I have to go home to my daughter." Problems Identified/Issues Discussed: Continue medications Support and psychoeducation daily Attend groups and activities daily After care planning by GEOFFREY Pt is being treated for possible UTI, though urine culture results demonstrated probably contamination. Pt reports continued "mild ALFONSO because of my BP." Pt states she is sleeping ok, eating well, is less fatigued and overall feeling better despite a mild ALFONSO. Is concerned about constipation and requests laxative , reports last BM was 1 wk ago. Medical Problems: Medicine consult appreciated for- HTN, DM with neuropathy, CVA hx, constipation. ALFONSO's 2/2 HTN. Medication Change: Yes (detox changes daily) Medical Record Reviewed: Yes Consults ordered or reviewed: Medicine consult appreciated for- HTN, DM with neuropathy, CVA hx, constipation. Mental Status Examination - Cognitive Function Orientation: Person, Place, Situation, Time - Mood Mood: Depressed - Affect Affect: Constricted - Formal Thought Process Formal Thought Process: No Impairment - Suicidal Ideation Suicidal Ideation: No - Homicidal Ideation Homicidal Ideation: No Goal/Treatment Plan - Goal/Treatment Plan Need for Continued Stay: Remain at risks for inpatient hospitalization, Discharge may exacerbated symptoms, Severe functional impairment Progress Toward Problem(s) and Goals/Treatment Plan: Methadone detox As needed medications All risks, benefits and alternatives of the meds discussed, and the pt agreed and understood. Attend groups and activities Supportive therapy and psychoeducation [place] for abstinence CBT for relapse prevention Encourage MAT Refer to rehab or IOP, and self-help groups Smoking cessation with [place] Nicotine patch Patient states she is feeling better, no longer having stomach discomfort, constipation, or ALFONSO and she wants to go home to her 18 year old daughter who is in school. 15 min
[2017-12-26] MEDS: Multiple Vitamins Tab PO SCH (09:16)
--- NOTE | 2017-12-26 14:56 | PCM.PYCHPN ---
Psychiatric Progress Note - Psychiatric Progress Note Patient seen today, length of contact: 15 Patient Chief Complaint: "I feel better and I have to go home to my daughter." Problems Identified/Issues Discussed: Continue medications Support and psychoeducation daily Attend groups and activities daily After care planning by GEOFFREY Pt is being treated for possible UTI, though urine culture results demonstrated probably contamination. Pt reports continued "mild ALFONSO because of my BP." Pt states she is sleeping ok, eating well, is less fatigued and overall feeling better despite a mild ALFONSO. Is concerned about constipation and requests laxative , reports last BM was 1 wk ago. Medical Problems: Medicine consult appreciated for- HTN, DM with neuropathy, CVA hx, constipation. ALFONSO's 2/2 HTN. Diagnostic Results: Urine culture final- multiple species, probable contamination. BP continues trending high, max overnight 188/79. Pulse low, 52. Medication Change: Yes (detox changes daily) Medical Record Reviewed: Yes Mental Status Examination - Cognitive Function Orientation: Person, Place, Situation, Time - Mood Mood: Depressed - Affect Affect: Constricted - Formal Thought Process Formal Thought Process: No Impairment - Suicidal Ideation Suicidal Ideation: No - Homicidal Ideation Homicidal Ideation: No Goal/Treatment Plan - Goal/Treatment Plan Need for Continued Stay: Remain at risks for inpatient hospitalization, Discharge may exacerbated symptoms, Severe functional impairment Progress Toward Problem(s) and Goals/Treatment Plan: Methadone detox As needed medications All risks, benefits and alternatives of the meds discussed, and the pt agreed and understood. Attend groups and activities Supportive therapy and psychoeducation [place] for abstinence CBT for relapse prevention Encourage MAT Refer to rehab or IOP, and self-help groups Smoking cessation with [place] Nicotine patch Patient states she is feeling better, no longer having stomach discomfort, constipation, or ALFONSO and she wants to go home to her 18 year old daughter who is in school. 15 min
[2017-12-27 06:18] VITALS: RESP 20; TEMP 98.9
[2017-12-27] MEDS: Multiple Vitamins Tab PO SCH (09:02)
--- NOTE | 2017-12-27 09:19 | PCM.PYCHDC ---
Mental Status Examination - Mental Status Examination Orientation: Person, Place, Situation, Time Memory: Intact Mood: Neutral Affect: Constricted Speech: Soft Attention: WNL Concentration: WNL Association: WNL Fund of Knowledge: WNL Formal Thought Process: No Impairment Description of patient's judgement and insight: good, fair Psychotic Thoughts and Behaviors: denies any AVH Suicidal Ideation: No Current Homicidal Ideation?: No Discharge Summary - Discharge Note Reason for Hospitalization: Pt is a 57 y.o. AA female with 3 children (ages 18, 27, 38). She is single, lives with her youngest daughter. She is on disability due to sequelae of previous strokes (pt states she has occasional numbness). Pt states she has snorted 6-10 bags of heroin per day since relapsing approximately 3 years ago. She lsat used 12/22/17 around noon. She has smoked cocaine "for a long time." She smokes 0.5 ppd and drinks approximately 2 beers per day. Denies use of marijuana, xanax, klonopin, PCP, valium, adderall or mushrooms. Pt complains of withdrawal symptoms. She also uses cocaine sometimes. Pt denies suicidal ideation, denies hearing voices, denies feeling depressed. Past psych history: Pt denies depression, anxiety or any other psych history. Family psych history: Pt states her sister is bipolar, has substance abuse disorder. PMH: "I've had strokes." No weakness reported. Diabetes, HTN, neuropathy. Patient currently being treated for UTI. Consultations:: List each consultation separately and include: 1. Reason for request. 2. Findings. 3. Follow-up Summary of Hospital Course include:: 1. Description of specific treatment plan utilized for patients during their course of treatmen. 2. Summarize the time- course for resolution of acute symptoms and/or regressed behaviors. 3. Describe issues identified and worked on during hospitalization. 4. Describe medication utilized. 5. Describe medical problems identified and treated. 6. Reassessment of suicide risk - Final Diagnosis (DSM 5) Condition upon Discharge: FAIR DSM 5: Opioid withdrawal Opioid use d/o - severe Cocaine use d/o - moderate/severe Disposition: HOME/ ROUTINE Prescriptions/Medication Reconciliation: amLODIPine [Norvasc] 10 mg PO DAILY #30 tab Aspirin [Aspirin Chewable] 81 mg PO DAILY #30 chew Docusate [Colace] 100 mg PO BID #60 cap Gabapentin [Neurontin] 300 mg PO TID #90 cap hydroCHLOROthiazide [Microzide] 12.5 mg PO DAILY #30 cap Lisinopril [Zestril] 20 mg PO DAILY #30 tab Nitrofurantoin Macrocrystals [Macrobid] 100 mg PO Q12H #4 cap QUEtiapine [SEROquel] 50 mg PO HS #30 tab traZODone [Desyrel] 50 mg PO HS PRN #30 tab PRN Reason: Insomnia
[2017-12-27 09:31] VITALS: BP 165/78; PULSE 61; O2SAT 98
== END 2017-12-27 09:34 | disposition home or self-care (01) | DRG 744 ==
LOC: C.ER 15:36 → C.7D 23:21
PROVIDERS: ADMIT Psychiatry & Neurology Psychiatry; ATTEND Psychiatry & Neurology Psychiatry
PROC: HZ91ZZZ Pharmacotherapy for Substance Abuse Treatment, Methadone Maintenance (ICD-10-PCS; principal; 2017-12-22)
PROC: HZ2ZZZZ Detoxification Services for Substance Abuse Treatment (ICD-10-PCS; 2017-12-22)
PROC: HZ52ZZZ Individual Psychotherapy for Substance Abuse Treatment, Cognitive-Behavioral (ICD-10-PCS; 2017-12-22)
PROC: HZ59ZZZ Individual Psychotherapy for Substance Abuse Treatment, Supportive (ICD-10-PCS; 2017-12-22)
PROC: HZ56ZZZ Individual Psychotherapy for Substance Abuse Treatment, Psychoeducation (ICD-10-PCS; 2017-12-22)
DX: F11.23 Opioid dependence with withdrawal (principal); E11.40 Type 2 diabetes mellitus with diabetic neuropathy, unspecified; F14.90 Cocaine use, unspecified, uncomplicated; F17.210 Nicotine dependence, cigarettes, uncomplicated; I10 Essential (primary) hypertension; K59.00 Constipation, unspecified; Z79.82 Long term (current) use of aspirin; Z82.49 Family history of ischemic heart disease and other diseases of the circulatory system; Z83.3 Family history of diabetes mellitus; Z86.73 Personal history of transient ischemic attack (TIA), and cerebral infarction without residual deficits; Z79.84 Long term (current) use of oral hypoglycemic drugs

== ENCOUNTER 2018-04-11 17:26 | Emergency (ER) | payer MEDICAID | END 2018-04-11 17:46 | disposition left against medical advice (07) | LOC: C.ER 17:26 | DX: Z02.89 Encounter for other administrative examinations (principal); F19.10 Other psychoactive substance abuse, uncomplicated ==

== ENCOUNTER 2018-04-11 17:55 | Inpatient (IN) | payer MEDICAID ==
[2018-04-11 18:30] LABS: BASO # 0.1 K/uL (0.0-0.2); BASO % 1.2 % (0.0-2.0); EOS # 0.4 K/uL (0.0-0.7); HEMOGLOBIN 16.5 g/dL (11.0-16.0); LYMPH # 1.3 K/uL (1.0-4.3); LYMPH % 18.9 % (20.0-40.0); MEAN CORPUSCULAR HEMOGLOBIN 31.6 pg (27.0-31.0); MEAN CORPUSCULAR HGB CONC 33.6 g/dL (33.0-37.0); MEAN PLATELET VOLUME 10.7 fL (7.2-11.7); MONO # 0.4 K/uL (0.0-0.8); MONO % 6.4 % (0.0-10.0); NEUT # 4.6 K/uL (1.8-7.0); NEUT % 67.5 % (50.0-75.0); RBC 5.22 Mil/uL (3.80-5.20); RED CELL DISTRIBUTION WIDTH 14.6 % (11.5-14.5); WHITE BLOOD COUNT 6.8 K/uL (4.8-10.8)
[2018-04-11 18:36] LABS: SQUAMOUS EPITHIAL < 1 /hpf (0-5); URINE BILIRUBIN NEGATIVE (NEGATIVE); URINE BLOOD NEGATIVE (NEGATIVE); URINE CLARITY Clear (Clear); URINE COLOR Straw (YELLOW); URINE GLUCOSE (UA) 1+ mg/dL (Normal); URINE LEUKOCYTE ESTERASE NEG Leu/uL (Negative); URINE PROTEIN 3+ mg/dL (NEGATIVE); URINE UROBILINOGEN NORMAL mg/dL (0.2-1.0)
--- NOTE | 2018-04-11 18:38 | C.PDOC ---
History Of Present Illness <Aleyda Oliver - Last Filed: 04/11/18 19:07> <Rebecca Corona - Last Filed: 04/11/18 20:59> 57 years old female presents to ED for detox from heroin. Denies any physical complaints. Patient reports last use was earlier today about 6-8. Denies any other physical complaints. (Aleyda Oliver) History Per: Patient History/Exam Limitations: no limitations Onset/Duration Of Symptoms: Hrs Current Symptoms Are (Timing): Still Present Suicide/Self Injury Attempted (Context): None Modifying Factor(s): Narcotics (heroin ) Associated Symptoms: denies: Suicidal Thoughts, Suicidal Plan Involuntary Hold By: None Recent travel outside of the [place]: No <Aleyda Oliver - Last Filed: 04/11/18 19:07> <Rebecca Corona - Last Filed: 04/11/18 20:59> Time Seen by Provider: 04/11/18 18:08 Chief Complaint (Nursing): Substance Abuse Past Medical History Reviewed: Historical Data, Nursing Documentation, Vital Signs - Medical History PMH: Diabetes, HTN Family History: States: Unknown Family Hx - Social History Hx Alcohol Use: Yes Hx Substance Use: Yes - Immunization History Hx Influenza Vaccination: No <Aleyda Oliver - Last Filed: 04/11/18 19:07> Vital Signs: Last Vital Signs Temp 99.2 F 04/11/18 19:01 Pulse 74 04/11/18 20:06 Resp 14 04/11/18 20:06 BP 178/82 H 04/11/18 20:06 Pulse Ox 97 04/11/18 20:06 - [facility] Procedures DETOXIFICATION SERVICES FOR SUBSTANCE ABUSE TREATMENT (12/22/17) INDIV PSYCHOTHERAPY FOR SUBSTANCE ABUSE TREATMENT, SUPPORT (12/22/17) INDIV PSYCHOTHERAPY FOR SUBSTANCE ABUSE, COGNITIV BEHAVIORAL (12/22/17) INDIV PSYCHOTHERAPY FOR SUBSTANCE ABUSE, PSYCHOEDUCATION (12/22/17) INDIVIDUAL PSYCHOTHERAPY, SUPPORTIVE (05/12/17) PHARMACOTHERAPY FOR SUBSTANCE ABUSE, METHADONE MAINT (12/22/17) Review Of Systems Constitutional: Negative for: Fever, Chills Cardiovascular: Negative for: Chest Pain Gastrointestinal: Negative for: Nausea, Vomiting, Abdominal Pain, Diarrhea Skin: Negative for: Rash Neurological: Negative for: Weakness, Numbness Psych: Negative for: Suicidal ideation <Aleyda Oliver - Last Filed: 04/11/18 19:07> Physical Exam - Physical Exam Appears: Well, Non-toxic, No Acute Distress Skin: Normal Color, Warm, Dry Head: Atraumatic, Normacephalic Eye(s): bilateral: Normal Inspection, PERRL, EOMI Nose: Normal Oral Mucosa: Moist Neck: Supple Chest: Symmetrical, No Tenderness Cardiovascular: Rhythm Regular, No Murmur Respiratory: Normal Breath Sounds, No Decreased Breath Sounds, No Rales, No Rhonchi, No Wheezing Gastrointestinal/Abdominal: Soft, No Tenderness, No Distention Extremity: Normal ROM Extremity: Bilateral: Normal Color And Temperature, Normal ROM Neurological/Psych: Oriented x3, Normal Speech, Normal Cognition Gait: Steady <Aleyda Oliver - Last Filed: 04/11/18 19:07> ED Course And Treatment - Laboratory Results Result Diagrams: 04/11/18 18:27 04/11/18 18:27 Progress Note: Ordered blood work and urinalysis. Patient is medically cleared for detox. Patient has CRI and will benefit from nephrology consult while admitted. <Aleyda Oliver - Last Filed: 04/11/18 19:07> - Laboratory Results Result Diagrams: 04/11/18 18:27 04/11/18 18:27 Progress Note: Pt may benefit from a medical consult regarding her blood pressure <Rebecca Corona - Last Filed: 04/11/18 20:59> Disposition - Disposition Disposition Time: 19:05 <Aleyda Oliver - Last Filed: 04/11/18 19:07> Discussed With : Mariama Patrick Comment: accepted the pt on her service and took over the care at 8:50 PM Doctor Will See Patient In The: Hospital Counseled Patient/Family Regarding: Studies Performed, Diagnosis <Rebecca Corona - Last Filed: 04/11/18 20:59> - Disposition Disposition: HOSPITALIZED Condition: FAIR Forms: [facility] ([place]) - Clinical Impression Clinical Impression: Drug abuse, Chronic renal insufficiency - PA / EQUIPMENT INSTALLATION PROFESSIONAL / Resident Statement MD/DO has reviewed & agrees with the documentation as recorded. - Scribe Statement The provider has reviewed the documentation as recorded by the Scribe <Aleyda Oliver - Last Filed: 04/11/18 19:07> <Rebecca Corona - Last Filed: 04/11/18 20:59> - Scribe Statement Angella Veloz All medical record entries made by the Scribe were at my direction and personally dictated by me. I have reviewed the chart and agree that the record accurately reflects my personal performance of the history, physical exam, medical decision making, and the department course for this patient. I have also personally directed, reviewed, and agree with the discharge instructions and disposition. (Aleyda Oliver) Physician Patient Turnover Patient Signed Over To: Rebecca Corona Handoff Comments: waiting to be accepted for detox <Aleyda Oliver - Last Filed: 04/11/18 19:07> Decision To Admit <Aleyda Oliver - Last Filed: 04/11/18 19:07> - Pt Status Changed To: Hospital Disposition Of: Inpatient - Admit Certification Admit to Inpatient:: After my assessment, the patient will require hospitalization for at least two midnights. This is because of the severity of symptoms shown, intensity of services needed, and/or the medical risk in this patient being treated as an outpatient. - InPatient: Physician Admission Certification: I certify that this patient requires 2 or more midnights of care for the following reason:: After my assessment, the patient will require hospitalization for at least two midnights. This is because of the severity of symptoms shown, intensity of services needed, and/or the medical risk in this patient being treated as an outpatient. - . Bed Request Type: Detox Admitting Physician: Mariama Patrick <Rebecca Corona - Last Filed: 04/11/18 20:59> - . Patient Diagnosis: Drug abuse, Chronic renal insufficiency
[2018-04-11 18:43] LABS: ALBUMIN 3.8 g/dL (3.5-5.0); ALT/SGPT 20 U/L (9-52); AST/SGOT 29 U/L (14-36); BLOOD UREA NITROGEN 27 mg/dL (7-17); CALCIUM 9.4 mg/dl (8.6-10.4); GFR AFRICAN-AMERICAN 33; GFR NON-AFRICAN AMERICAN 27
[2018-04-11 18:52] LABS: BARBITURATES, UR NEGATIVE (NEGATIVE); BENZODIAZEPINES, UR NEGATIVE (NEGATIVE); PHENCYCLIDINE, UR NEGATIVE (NEGATIVE)
[2018-04-11 18:53] LABS: OPIATES, UR POSITIVE (NEGATIVE)
--- NOTE | 2018-04-11 21:43 | PCM.BM ---
<Elenita Wilson - Last Filed: 04/11/18 21:40> Treatment Plan Problems - Problems identified on initial assessmt potiential for opiate withdrawal Date Initiated: 04/11/18 Time Initiated: 21:43 Assessment reference: NA Status: Active Treatment assets and liabiliti Patient Assests: ADL independent, cognitively intact Patient Liabilities: substance abuse, medical problems - Milieu Protocol Maintain good personal hygiene: daily Encourage regular showers, daily Remind patient to perform daily oral care, daily Assist patient to perform ADL's Maintain personal safety: every shift Educate patient to report safety concerns to staff, every shift Monitor environment for contraband/sharps Medication safety: Monitor for expected outcome, potential side effects: every shift, Assess barriers to learning: every shift, Assess readiness for medication education: every shift <Micky Garrison - Last Filed: 04/13/18 14:41> - Diagnosis (1) Opioid use disorder, severe, dependence Status: Acute Interventions: 04/13/18 14:41 * Assess 7x/week regarding severity of withdrawal * Educate regarding risks, benefits, side effects and alternatives of medications * Use Motivational Interviewing for abstinence * Use CBT for relapse prevention * Medication management for withdrawal symptoms * Encourage medication assisted treatment * <Chelly Santo - Last Filed: 04/15/18 13:31> Family Contact Family involvement: Sylviey/SO not involved - Goals for Treatment Patient goals for treatment: Complete detox and transition to outpatient therapy. Discharge/Continuing Care - Education Needs Education Needs: Patient Medication, Patient Diagnosis/Disease Process, Patient Coping Skills, Patient Anger Management skills, Patient Placement options, Patient Community resources - Discharge Discharge Criteria: No longer exhibiting s/s of withdrawal, Reduction of target symptoms Discharge to:: Home, With Family - Treatment Team Participation Patient/Family/SO Statement: 04/15/18 13:31 "I wanna go to outpatient so I can continue to look for work. I need to work." Discussed with Family/SO: No Was Patient/Family/SO present at Treatment Team Meeting: Yes
[2018-04-12] MEDS: Multiple Vitamins Tab PO SCH (10:42)
[2018-04-12] MEDS ORDERED: Buprenorphine Hydrochloride 2 mg SL ONE ×3 (10:57→19:33)
--- NOTE | 2018-04-12 16:02 | PCM.PSYCH ---
Initial Psychiatric Evaluation - Initial Psychiatric Evaluation Type of Admission: Voluntary Legal Status: Capacity Chief Complaint (in patient's own words): "I need Subutex" History of Present Illness and Precipitating Events: The patient is seen, chart reviewed and case discussed. Pt is a 57 y.o. AA female with a long history of substance abuse. Pt stated that she had relapse on opioid after d/c from the unit. she did not follow up with the treatment plan after the d/c. Pt states she has snorte 6-8 bags of heroin per day. Her last use was yesterday in the AM. She has smoked cocaine "for a long time." She smokes 0.5 ppd and drinks approximately 2 beers per day. Denies use of marijuana, xanax, klonopin, PCP, valium, adderall or mushrooms. Pt complains of withdrawal symptoms. She also uses cocaine sometimes. Pt denies suicidal ideation, denies hearing voices, denies feeling depressed. She is single, lives with her youngest daughter. Past psych history: Pt denies depression, anxiety or any other psych history. PMH: Neuropathy. Diabetes, HTN, neuropathy. Current Medications: Active Medications Generic Name Dose Route Start Last Admin Trade Name Freq PRN Reason Stop Dose Admin Amlodipine Besylate 10 mg 04/12/18 10:00 04/12/18 14:40 Norvasc PO 10 mg DAILY ENRIQUE Administration Aspirin 81 mg 04/12/18 10:00 04/12/18 10:42 Ecotrin PO 81 mg DAILY ENRIQUE Administration Chlordiazepoxide 25 mg 04/11/18 21:52 Librium PO Q4H PRN Alcohol Withdrawal Clonidine HCl 0.1 mg 04/11/18 21:50 04/11/18 22:39 Catapres PO 0.1 mg Q8 PRN Administration COWS Score More or Equal to 5 Folic Acid 1 mg 04/12/18 10:00 04/12/18 10:42 Folic Acid PO 1 mg DAILY ENRIQUE Administration Gabapentin 300 mg 04/12/18 10:00 04/12/18 10:42 Neurontin PO 300 mg BID ENRIQUE Administration Hydralazine HCl 10 mg 04/12/18 14:15 04/12/18 14:40 Apresoline PO 10 mg TID ENRIQUE Administration Ibuprofen 600 mg 04/11/18 21:54 Motrin Tab PO Q6H PRN Pain, moderate (4-7) Loperamide HCl 2 mg 04/11/18 21:50 Imodium PO Q8 PRN Diarrhea Multivitamins 1 tab 04/12/18 10:00 04/12/18 10:42 Hexavitamin PO 1 tab DAILY ENRIQUE Administration Nicotine 1 patch 04/12/18 10:30 04/12/18 11:03 Nicoderm Cq TD 1 patch DAILY ENRIQUE Administration Ondansetron HCl 4 mg 04/11/18 21:50 Zofran Tab PO Q8 PRN Nausea/Vomiting Rosuvastatin Calcium 5 mg 04/12/18 22:00 Crestor PO HS ENRIQUE Thiamine HCl 100 mg 04/12/18 10:00 04/12/18 10:42 Vitamin B1 Tab PO 100 mg DAILY ENRIQUE Administration Trazodone HCl 50 mg 04/11/18 21:52 04/11/18 23:27 Desyrel PO 50 mg HS PRN Administration Insomnia Past Psychiatric History - Past Psychiatric History Previous Treatment History: Inpatient Prior Professional Help: She had multiple admission for opioid detox At [facility]: [facility] History of Abuse: DENIED History of ETOH/Drug Use: please see HPI History of Family Illness: denied Pertinent Medical Hx (Current Medical&Sleep Prob, Allergies): Allergies Allergy/AdvReac Type Severity Reaction Status Date / Time No Known Allergies Allergy Verified 04/11/18 18:04 Aspirin 81 mg PO DAILY #30 05/16/17 amLODIPine [Norvasc] 10 mg PO DAILY #30 tab 05/16/17 Gabapentin [Neurontin] 300 mg PO DAILY 12/22/17 Aspirin [Aspirin Chewable] 81 mg PO DAILY #30 chew 12/27/17 Docusate [Colace] 100 mg PO BID #60 cap 12/27/17 Gabapentin [Neurontin] 300 mg PO TID #90 cap 12/27/17 Lisinopril [Zestril] 20 mg PO DAILY #30 tab 12/27/17 Nitrofurantoin Macrocrystals [Macrobid] 100 mg PO Q12H #4 cap 12/27/17 QUEtiapine [SEROquel] 50 mg PO HS #30 tab 12/27/17 amLODIPine [Norvasc] 10 mg PO DAILY #30 tab 12/27/17 hydroCHLOROthiazide [Microzide] 12.5 mg PO DAILY #30 cap 12/27/17 traZODone [Desyrel] 50 mg PO HS PRN #30 tab 12/27/17 HTN, DM, Neuropathy Review of Systems - Review of Systems All systems: reviewed and no additional remarkable complaints except (neuropathy ) Mental Status Examination - Personal Presentation Personal Presentation: Looks stated age, Dressed appropriate to season - Affect Affect: Constricted - Motor Activity Motor Activity: Calm - Reliability in Providing Information Reliability in Providing Information: Good - Speech Speech: Organized - Mood Mood: Anxious - Formal Thought Process Formal Thought Process: No Impairment - Hallucinations/Delusions Hallucinations: Other (denied) Delusions: Other (denied) - Obsessions/Compulsions Obsessions: None Compulsions: None - Cognitive Functions Orientation: Person, Place, Situation, Time Sensorium: Alert Attention/Concentration: Attentive Abstract Thinking: [place] Estimate of Intelligence: Average Judgement: Intact, as evidence by: Good judgement, Intact, as evidence by: Insight regarding need for hospitalization Memory: Recent intact, as evidence by: Ability to recall events of the day - Risk Risk: Withdrawal - Strength & Assets Inventory Strength & Assets Inventory: Intelligence - Limitations Limitations: Other (chronic substance abuse) DSM 5 DX - DSM 5 DSM 5 Diagnosis: Opioid use disorder, severe, dependence Opioid withdrawal Cocaine use disorder Alcohol use disorder, severe, dependence Alcohol withdrawal - Recommended/Plan of Treatment Treatment Recommendations and Plan of Treatment: Librium and Subutex taper Gabapentin for augmentation As needed meds and vitamins Attend groups and activities MA for abstinence and CBT for relapse prevention Support and psychoeducation Consider and encourage MAT~ Refer to after care 33 min Projected ELOS: 5 days Prognosis: good Discharge Plan and Discharge Criteria: refer to after care plan - Smoking Cessation Smoking Cessation Initiated: Yes
--- NOTE | 2018-04-12 19:40 | CP.PCM.CON ---
<Yasmin Rice - Last Filed: 04/12/18 19:37> History of Present Illness - History of Present Illness History of Present Illness: Medicine consult note for Dr. Bob Tirado: Patient is a 57 year old female with a past medical history of hypertension, DM , CVA x2 and polysubstance abuse. Patient was admitted to detox for heroin. Patient was found to be hypertensive, for which hospitalist was consulted. Patient stated she takes Norvasc 10mg/Lisinopril 40 mg PO daily at home which normally controlled her pressure. Detox unit did not administered. On last admission patient was given Lisionpril, Norvasc, and HCTZ. As of her labwork today patient has CKD stage 3. Patient is to be evaluated by nephrology. Patient denied chest pain,, SOB, changes in vision from baseline or weakness/ numbness. She reports that her right eyes is lazy and that he vision is normally more blurry in that eye. She does wear glasses. Review of Systems - Constitutional Constitutional: absent: Chills, Fever, Headache - EENT Eyes: Blurred Vision (chroni in R eye), Other - Cardiovascular Cardiovascular: absent: Chest Pain, Chest Pain at Rest - Respiratory Respiratory: absent: Cough, Dyspnea, Dyspnea on Exertion - Gastrointestinal Gastrointestinal: absent: Abdominal Pain, Nausea, Vomiting - Neurological Neurological: absent: Dizziness, Tingling, Weakness Past Patient History - Infectious Disease Hx of Infectious Diseases: None - Past Medical History & Family History Past Medical History?: Yes - Past Social History Smoking Status: Light Smoker < 10 Cigarettes Daily - CARDIAC Hx Hypertension: Yes - PULMONARY Hx Tuberculosis: No - NEUROLOGICAL Hx Seizures: No - ENDOCRINE/METABOLIC Hx Diabetes Mellitus Type 2: Yes - HEMATOLOGICAL/ONCOLOGICAL Hx Human Immunodeficiency Virus (HIV): No - MUSCULOSKELETAL/RHEUMATOLOGICAL Hx Falls: No - GENITOURINARY/GYNECOLOGICAL Hx Sexually Transmitted Disorders: No - PSYCHIATRIC Hx Substance Use: Yes - SURGICAL HISTORY Hx Surgeries: No - ANESTHESIA Hx Anesthesia: No Meds Allergies/Adverse Reactions: Allergies Allergy/AdvReac Type Severity Reaction Status Date / Time No Known Allergies Allergy Verified 04/11/18 18:04 - Medications Medications: Current Medications Amlodipine Besylate (Norvasc) 10 mg PO DAILY [facility] Last Admin: 04/12/18 14:40 Dose: 10 mg Aspirin (Ecotrin) 81 mg PO DAILY [facility] Last Admin: 04/12/18 10:42 Dose: 81 mg Chlordiazepoxide (Librium) 25 mg PO Q4H PRN PRN Reason: Alcohol Withdrawal Clonidine HCl (Catapres) 0.1 mg PO Q8 PRN PRN Reason: COWS Score More or Equal to 5 Last Admin: 04/11/18 22:39 Dose: 0.1 mg Folic Acid (Folic Acid) 1 mg PO DAILY [facility] Last Admin: 04/12/18 10:42 Dose: 1 mg Gabapentin (Neurontin) 300 mg PO BID [facility] Last Admin: 04/12/18 17:26 Dose: 300 mg Hydralazine HCl (Apresoline) 10 mg PO TID [facility] Last Admin: 04/12/18 17:26 Dose: 10 mg Ibuprofen (Motrin Tab) 600 mg PO Q6H PRN PRN Reason: Pain, moderate (4-7) Lisinopril (Zestril) 40 mg PO DAILY [facility] Last Admin: 04/12/18 17:40 Dose: 40 mg Loperamide HCl (Imodium) 2 mg PO Q8 PRN PRN Reason: Diarrhea Multivitamins (Hexavitamin) 1 tab PO DAILY [facility] Last Admin: 04/12/18 10:42 Dose: 1 tab Nicotine (Nicoderm Cq) 1 patch TD DAILY [facility] Last Admin: 04/12/18 11:03 Dose: 1 patch Ondansetron HCl (Zofran Tab) 4 mg PO Q8 PRN PRN Reason: Nausea/Vomiting Rosuvastatin Calcium (Crestor) 5 mg PO HS [facility] Thiamine HCl (Vitamin B1 Tab) 100 mg PO DAILY [facility] Last Admin: 04/12/18 10:42 Dose: 100 mg Trazodone HCl (Desyrel) 50 mg PO HS PRN PRN Reason: Insomnia Last Admin: 04/11/18 23:27 Dose: 50 mg Physical Exam - Constitutional Appears: Non-toxic, No Acute Distress - Head Exam Head Exam: ATRAUMATIC, NORMAL INSPECTION - Eye Exam Eye Exam: EOMI, Normal appearance, PERRL Pupil Exam: PERRL Additional comments: strabisums with esoptropia of the r eye Results - Vital Signs Recent Vital Signs: Last Vital Signs Temp 98.2 F 04/12/18 13:43 Pulse 74 04/12/18 19:16 Resp 18 04/12/18 13:43 BP 188/84 H 04/12/18 19:16 Pulse Ox 97 04/12/18 13:43 - Labs Result Diagrams: 04/11/18 18:27 04/11/18 18:27 Assessment & Plan - Assessment and Plan (Free Text) Assessment: Hypertension uncontrolled, patient was not given her meds today, asymptomatic f/u EKG Amlodipine 10mg PO daily Lisionpril 40mg Po daily Hudralazin1 10mg PO TID Hx CVA Aspirin 81mg PO daily Crestor 5mg PO HS CKD Nephrology consulted, Dr. Smith Detox per Detox/psychiatry <Pardeep Tirado - Last Filed: 04/12/18 22:01> Meds - Medications Medications: Current Medications Amlodipine Besylate (Norvasc) 10 mg PO DAILY [facility] Last Admin: 04/12/18 14:40 Dose: 10 mg Aspirin (Ecotrin) 81 mg PO DAILY [facility] Last Admin: 04/12/18 10:42 Dose: 81 mg Chlordiazepoxide (Librium) 25 mg PO Q4H PRN PRN Reason: Alcohol Withdrawal Clonidine HCl (Catapres) 0.1 mg PO Q8 PRN PRN Reason: COWS Score More or Equal to 5 Last Admin: 04/12/18 19:47 Dose: 0.1 mg Folic Acid (Folic Acid) 1 mg PO DAILY [facility] Last Admin: 04/12/18 10:42 Dose: 1 mg Gabapentin (Neurontin) 300 mg PO BID [facility] Last Admin: 04/12/18 17:26 Dose: 300 mg Hydralazine HCl (Apresoline) 10 mg PO TID [facility] Last Admin: 04/12/18 17:26 Dose: 10 mg Hydroxyzine HCl (Atarax) 25 mg PO Q6H PRN PRN Reason: Anxiety Ibuprofen (Motrin Tab) 600 mg PO Q6H PRN PRN Reason: Pain, moderate (4-7) Lisinopril (Zestril) 40 mg PO DAILY [facility] Last Admin: 04/12/18 17:40 Dose: 40 mg Loperamide HCl (Imodium) 2 mg PO Q8 PRN PRN Reason: Diarrhea Multivitamins (Hexavitamin) 1 tab PO DAILY [facility] Last Admin: 04/12/18 10:42 Dose: 1 tab Nicotine (Nicoderm Cq) 1 patch TD DAILY [facility] Last Admin: 04/12/18 11:03 Dose: 1 patch Ondansetron HCl (Zofran Tab) 4 mg PO Q8 PRN PRN Reason: Nausea/Vomiting Rosuvastatin Calcium (Crestor) 5 mg PO HS ENRIQUE Thiamine HCl (Vitamin B1 Tab) 100 mg PO DAILY ENRIQUE Last Admin: 04/12/18 10:42 Dose: 100 mg Trazodone HCl (Desyrel) 50 mg PO HS PRN PRN Reason: Insomnia Last Admin: 04/11/18 23:27 Dose: 50 mg Results - Vital Signs Recent Vital Signs: Last Vital Signs Temp 98.5 F 04/12/18 21:31 Pulse 65 04/12/18 21:31 Resp 20 04/12/18 21:31 BP 185/93 H 04/12/18 21:31 Pulse Ox 97 04/12/18 21:31 - Labs Result Diagrams: 04/11/18 18:27 04/11/18 18:27 Attending/Attestation - Attestation I have personally seen and examined this patient.: Yes I have fully participated in the care of the patient.: Yes I have reviewed all pertinent clinical information: Yes Notes (Text): 04/12/18 22:01 Patient was seen and examined at 8:00 PM Assessment and Plan were gone over with the resident. Pardeep Tirado D.O.
--- NOTE | 2018-04-13 02:14 | CON ---
DATE: NEPHROLOGY CONSULTATION HISTORY OF PRESENT ILLNESS: The patient is a 57-year-old female with a past medical history of hypertension, diabetes, CVA and polysubstance abuse admitted to detox for heroin and cocaine detox, found to be hypertensive. Nephrology is being consulted for renal insufficiency. The patient with a long history of substance abuse, snorts 6-8 to eight time of heroin per day and has been using cocaine for long time. Came with withdrawal symptoms. Found to have blood pressure since yesterday in 170s to 180s systoilc over 60s to 80s diastolic. The patient reports taking amlodipine and benazepril combination at home. Does not follow regularly with her PMD, last seen about 6 months ago. Otherwise, does not know of any renal insufficiency issues. The patient does report getting intermittent UTIs. She reports feeling of incomplete bladder evacuation after urinating, also with frothy urine. She otherwise denies any shortness of breath, chest pain, leg swelling, nausea or vomiting. Has neuropathy affecting her feet for which she is on gabapentin. Denies any other aches or pains. Does not use any other pain meds. Reporting increasing right eye blurriness, does not know if diabetes affected her eye. PAST MEDICAL HISTORY: As above. SOCIAL HISTORY: Smokes half pack per day. Drug history as above. FAMILY HISTORY: Mother with hypertension and diabetes. REVIEW OF SYSTEMS: CONSTITUTIONAL: Denies any fevers or chills. HEENT: Denies any difficulty swallowing. RESPIRATORY: As per HPI. No cough. CARDIOVASCULAR: Denies any chest pain or palpitations. GASTROINTESTINAL: As per HPI. GENITOURINARY: As per HPI. MUSCULOSKELETAL: As per HPI. NEURO: Reports neuropathy affecting her feet with pins and needles sensation. PSYCHIATRIC: Denies any depression or anxiety. PHYSICAL EXAMINATION: VITAL SIGNS: This afternoon, blood pressure 163/80, heart rate 56, respirations 18, temperature 98.2, O2 sat 97% on room air. GENERAL: No distress, conversing coherently in full sentences. HEENT: Moist mucous membranes. Nonicteric. No cervical lymphadenopathy. RESPIRATORY: Lungs are clear to auscultation bilaterally. No rales or rhonchi. No wheezes. CARDIOVASCULAR: Heart sounds S1, S2 normal. Regular rate. No carotid bruit. Diminished right dorsalis pedis pulse compared to left. GASTROINTESTINAL: Abdomen is soft, nontender, nondistended. GENITOURINARY: No bladder distention. No CVA tenderness. SKIN: Warm. No cyanosis. NEUROLOGIC: Denies sensation in right foot. PSYCHIATRIC: Normal mood. Normal affect. LABORATORY DATA: CBC; WBC 6.8, hemoglobin 16.5, hematocrit 49, platelets 183. Chemistry panel; sodium 145, potassium 4.3, chloride 111, bicarbonate 23, BUN 27, creatinine 1.9, glucose 115, calcium 9.4, AST 29, ALT 20, albumin 3.8. Urine studies; urine protein 3+, glucose 1+, negative blood. Urine toxicology positive for opiates and cocaine. Renal ultrasound from last year showing bilateral echogenic renal cortices. ASSESSMENT AND PLAN: 1. Coronary artery disease, stage 3b; progressive proteinuric kidney disease likely due to diabetic nephropathy; serum creatinine of 1.9 corresponding to EGFR 33 has shown progressive decrease over past year; 3+ proteinuria on UA likely not nephrotic syndrome as albumin is mostly preserved. Due to history of drug abuse, we should get more extensive workup for cause of chronic kidney disease. We will obtain serologic workup including C3, C4, hepatitis B and C, RPR, SPEP, immunofixation and free light chain assay. We will obtain bladder ultrasound with postvoid residual volume measurement. 2. Hypertension, uncontrolled. The patient on amlodipine and benazepril combination at home. Should continue CHARLINE inhibitor component here as well with lisinopril 40 mg daily in addition to amlodipine 10 mg daily; can give hydralazine p.o. 10 mg as needed. Would avoid nonsteroidal antiinflammatory drug use as this can exacerbate hypertension. 3. Proteinuria. Need to quantify with random urine protein and creatinine ratio. 4. Substance abuse. Possibility of ischemic insults to kidneys with cocaine use; the patient to be counseled regarding this. Thank you for this referral. We will be following up closely. Arvin Smith MD
[2018-04-13 09:00] LABS: COMPLEMENT C4 27.6 mg/dL (14.0-44.0)
[2018-04-13] MEDS: Buprenorphine Hydrochloride 2 mg SL SCH (09:04)
[2018-04-13] MEDS: Multiple Vitamins Tab PO SCH (09:05)
--- NOTE | 2018-04-13 11:17 | US ---
PROCEDURE: Ultrasound of the Bladder HISTORY: check post-void residual volume COMPARISON: None available. TECHNIQUE: Sonographic evaluation of the bladder was performed. FINDINGS: Unremarkable without wall thickening or intraluminal debris. No calculus or gross mass lesion. No free fluid in pelvis. Bilateral ureteral jets visualized. Prevoid Volume: 369.6 cc. Post void residual: 0 cc. IMPRESSION: Unremarkable sonogram of the bladder. No significant postvoid residual volume.
[2018-04-13] MEDS ORDERED: Ergocalciferol 50,000 Intl Units Cap PO SCH ×2 (12:00→13:00)
--- NOTE | 2018-04-13 12:05 | CARD ---
APPROVED REPORT EKG Measurement Heart [id number] <Conclusion> Sinus rhythm with occasional premature ventricular complexes and premature atrial complexes Anterior infarct, age undetermined Abnormal ECG
--- NOTE | 2018-04-13 12:46 | CP.PCM.PN ---
<Elenita Oreilly - Last Filed: 04/13/18 12:39> Subjective - Date & Time of Evaluation Date of Evaluation: 04/13/18 Time of Evaluation: 12:39 - Subjective Subjective: Medicine progress note for Dr. Helton's service Patient was seen and examined at bedside in no acute distress. Patient denies having complaints, denies chest pain, palpitations, abdominal pain, nausea, vomiting. Patient admits to having bilateral foot neuropathy and states it causes her discomfort while walking. Per nursing, patient was given Hydralazine in the morning and held the lisinopril and Norvasc due to heart rate in the 50s. Patients repeat BP was 166/ 78 and HR 73, lisinopril and Norvasc were then given. Objective - Vital Signs/Intake and Output Vital Signs (last 24 hours): Temp Pulse Resp BP Pulse Ox 98.3 F 73 18 166/78 H 97 04/13/18 09:00 04/13/18 10:07 04/13/18 10:07 04/13/18 10:07 04/13/18 09:00 - Medications Medications: Current Medications Amlodipine Besylate (Norvasc) 10 mg PO DAILY [facility] Last Admin: 04/13/18 10:08 Dose: 10 mg Aspirin (Ecotrin) 81 mg PO DAILY [facility] Last Admin: 04/13/18 09:06 Dose: 81 mg Buprenorphine HCl (Subutex) 8 mg SL DAILY [facility] PRN Reason: Taper Stop: 04/17/18 09:59 Last Admin: 04/13/18 09:04 Dose: 8 mg Chlordiazepoxide (Librium) 25 mg PO Q4H PRN PRN Reason: Alcohol Withdrawal Clonidine HCl (Catapres) 0.1 mg PO Q8 PRN PRN Reason: COWS Score More or Equal to 5 Last Admin: 04/12/18 19:47 Dose: 0.1 mg Ergocalciferol (Drisdol 50,000 Intl Units Cap) 1 cap PO Q7D [facility] Folic Acid (Folic Acid) 1 mg PO DAILY [facility] Last Admin: 04/13/18 09:05 Dose: 1 mg Gabapentin (Neurontin) 300 mg PO BID [facility] Last Admin: 04/13/18 09:05 Dose: 300 mg Hydralazine HCl (Apresoline) 10 mg PO TID [facility] Last Admin: 04/13/18 09:04 Dose: 10 mg Hydroxyzine HCl (Atarax) 25 mg PO Q6H PRN PRN Reason: Anxiety Last Admin: 04/12/18 22:01 Dose: 25 mg Ibuprofen (Motrin Tab) 600 mg PO Q6H PRN PRN Reason: Pain, moderate (4-7) Lisinopril (Zestril) 40 mg PO DAILY [facility] Last Admin: 04/13/18 10:09 Dose: 40 mg Loperamide HCl (Imodium) 2 mg PO Q8 PRN PRN Reason: Diarrhea Multivitamins (Hexavitamin) 1 tab PO DAILY [facility] Last Admin: 04/13/18 09:05 Dose: 1 tab Naphazoline HCl/Pheniramine Maleate (Naphcon-A Opht) 0 ml OP TID [facility] Nicotine (Nicoderm Cq) 1 patch TD DAILY [facility] Last Admin: 04/13/18 09:05 Dose: 1 patch Ondansetron HCl (Zofran Tab) 4 mg PO Q8 PRN PRN Reason: Nausea/Vomiting Rosuvastatin Calcium (Crestor) 5 mg PO HS [facility] Last Admin: 04/12/18 22:01 Dose: 5 mg Thiamine HCl (Vitamin B1 Tab) 100 mg PO DAILY [facility] Last Admin: 04/13/18 09:05 Dose: 100 mg Trazodone HCl (Desyrel) 50 mg PO HS PRN PRN Reason: Insomnia Last Admin: 04/12/18 22:01 Dose: 50 mg - Labs Labs: 04/11/18 18:27 04/11/18 18:27 - Constitutional Appears: No Acute Distress - Head Exam Head Exam: ATRAUMATIC, NORMOCEPHALIC - Eye Exam Eye Exam: EOMI, Normal appearance - ENT Exam ENT Exam: Mucous Membranes Moist - Respiratory Exam Respiratory Exam: Clear to Ausculation Bilateral, NORMAL BREATHING PATTERN. absent: Rales, Rhonchi, Wheezes - Cardiovascular Exam Cardiovascular Exam: REGULAR RHYTHM, +S1, +S2 - GI/Abdominal Exam GI & Abdominal Exam: Soft, Normal Bowel Sounds. absent: Distended, Tenderness - Extremities Exam Extremities Exam: Normal Inspection - Neurological Exam Neurological Exam: Alert, Awake, Oriented x3 - Psychiatric Exam Psychiatric exam: Normal Mood - Skin Skin Exam: Dry, Intact, Normal Color, Warm Assessment and Plan - Assessment and Plan (Free Text) Plan: Hypertension Uncontrolled EKG- sinus rhythm w/ occasional PVCs and PACs; anterior infarct age undetermined Amlodipine 10mg PO daily Lisinpril 40mg PO daily Hydralazine 10mg PO TID - may consider increasing to 25mg PO TID if BP does not improve. Continue to monitor vitals Hx CVA Aspirin 81mg PO daily Crestor 5mg PO HS CKD Nephrology consulted, Dr. Smith, help appreciated Detox per Detox/psychiatry Vitamin D Deficiency Vit D <12.8 Starting Ergocalciferol 50,000u q7days <Dai Helton V - Last Filed: 04/14/18 06:33> Objective - Vital Signs/Intake and Output Vital Signs (last 24 hours): Temp Pulse Resp BP Pulse Ox 98.9 F 51 L 18 162/60 H 97 04/13/18 16:40 04/13/18 16:40 04/13/18 16:40 04/13/18 16:40 04/13/18 16:40 - Medications Medications: Current Medications Amlodipine Besylate (Norvasc) 10 mg PO DAILY [facility] Last Admin: 04/13/18 10:08 Dose: 10 mg Aspirin (Ecotrin) 81 mg PO DAILY [facility] Last Admin: 04/13/18 09:06 Dose: 81 mg Buprenorphine HCl (Subutex) 8 mg SL DAILY [facility] PRN Reason: Taper Stop: 04/17/18 09:59 Last Admin: 04/13/18 09:04 Dose: 8 mg Chlordiazepoxide (Librium) 25 mg PO Q4H PRN PRN Reason: Alcohol Withdrawal Clonidine HCl (Catapres) 0.1 mg PO Q8 PRN PRN Reason: COWS Score More or Equal to 5 Last Admin: 04/12/18 19:47 Dose: 0.1 mg Ergocalciferol (Drisdol 50,000 Intl Units Cap) 1 cap PO Q7D [facility] Last Admin: 04/13/18 13:03 Dose: 1 cap Ergocalciferol (Drisdol 50,000 Intl Units Cap) 1 cap PO Q7D [facility] Last Admin: 04/13/18 13:18 Dose: Not Given Folic Acid (Folic Acid) 1 mg PO DAILY [facility] Last Admin: 04/13/18 09:05 Dose: 1 mg Gabapentin (Neurontin) 300 mg PO BID [facility] Last Admin: 04/13/18 17:28 Dose: 300 mg Hydralazine HCl (Apresoline) 25 mg PO TID [facility] Hydroxyzine HCl (Atarax) 25 mg PO Q6H PRN PRN Reason: Anxiety Last Admin: 04/12/18 22:01 Dose: 25 mg Ibuprofen (Motrin Tab) 600 mg PO Q6H PRN PRN Reason: Pain, moderate (4-7) Lisinopril (Zestril) 40 mg PO DAILY [facility] Last Admin: 04/13/18 10:09 Dose: 40 mg Loperamide HCl (Imodium) 2 mg PO Q8 PRN PRN Reason: Diarrhea Multivitamins (Hexavitamin) 1 tab PO DAILY [facility] Last Admin: 04/13/18 09:05 Dose: 1 tab Naphazoline HCl/Pheniramine Maleate (Naphcon-A Opht) 0 ml OP TID [facility] Last Admin: 04/13/18 17:30 Dose: 1 drop Nicotine (Nicoderm Cq) 1 patch TD DAILY [facility] Last Admin: 04/13/18 09:05 Dose: 1 patch Ondansetron HCl (Zofran Tab) 4 mg PO Q8 PRN PRN Reason: Nausea/Vomiting Rosuvastatin Calcium (Crestor) 5 mg PO HS [facility] Last Admin: 04/13/18 21:10 Dose: 5 mg Thiamine HCl (Vitamin B1 Tab) 100 mg PO DAILY [facility] Last Admin: 04/13/18 09:05 Dose: 100 mg Trazodone HCl (Desyrel) 50 mg PO HS PRN PRN Reason: Insomnia Last Admin: 04/13/18 21:10 Dose: 50 mg - Labs Labs: 04/11/18 18:27 04/11/18 18:27 Attending/Attestation - Attestation I have personally seen and examined this patient.: Yes I have fully participated in the care of the patient.: Yes I have reviewed all pertinent clinical information, including history, physical exam and plan: Yes Notes (Text): This is late computer entry for 04/13/18. Patient seen, examined and case discussed with day-time resident. 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 I have explained to her that cocaine alone will put her at risk of heart attack and I've also explained to her she carries risk for heart disease from her hypertension, diabetes, and prior history of stroke. Patient reports diabetes is controlled and stopped taking medications because the numbers have normalized. Patient reports she does not check her salt intake at home, and tends to cook with salt. Patient also remains inconsistent with her medication use. Patient is asymptomatic of her blood pressure at this time but is encouraged to take her blood pressure medications. I have increased her dose of hydralazine in the evening given her blood pressure remain high. Medicine will continue to follow. Assessment/Plan 1) Asymptomatic Hypertension Urgency * Uncontrolled * EKG- sinus rhythm w/ occasional PVCs and PACs; anterior infarct age undetermined * Amlodipine 10mg PO daily * Lisinpril 40mg PO daily * Increased to Hydralazine 25mg PO TID 2) Hx CVA * Aspirin 81mg PO daily * Crestor 5mg PO HS * Blood pressure control 3) CKD Proteinuria * Nephrology consulted, Dr. Smith, help appreciated * Bladder US: normal * on diana inhibitor 4) Heroin Detox * per Detox/psychiatry 5) Vitamin D Deficiency * Vit D <12.8 * Starting Ergocalciferol 50,000u q7days
[2018-04-13] MEDS: Naphazoline-Pheniramine Ophth Soln OP SCH ×2 (14:22→17:30)
--- NOTE | 2018-04-13 14:41 | PCM.PYCHPN ---
Psychiatric Progress Note - Psychiatric Progress Note Patient seen today, length of contact: 16 min Patient Chief Complaint: "Not well" Problems Identified/Issues Discussed: The pt is seen, chart reviewed, case discussed with staff. Support and psychoeducation given, CBT and IL used briefly No new symptoms reported, improving slowly and needs more time No SEs from medications, risks discussed. After care discussed She is c/o somatic problems and some wdw sxs Medication Change: Yes (detox changes daily) Medical Record Reviewed: Yes Mental Status Examination - Cognitive Function Orientation: Person, Place, Situation, Time Memory: Impaired Attention: Poor Concentration: Poor Association: WNL Fund of Knowledge: Poor - Mood Mood: Anxious - Affect Affect: Constricted - Speech Speech: Appropriate - Formal Thought Process Formal Thought Process: No Impairment - Suicidal Ideation Suicidal Ideation: No - Homicidal Ideation Homicidal Ideation: No Goal/Treatment Plan - Goal/Treatment Plan Need for Continued Stay: Discharge may exacerbated symptoms, Severe functional impairment Progress Toward Problem(s) and Goals/Treatment Plan: Subutex detox As needed medications Gabapentin for augmentation if needed All risks, benefits and alternatives of medications, including no medications, discussed and the patient understood and agreed. Attend groups and activities Supportive therapy and psychoeducation IL for abstinence CBT for relapse prevention Encourage MAT Refer to rehab or IOP Attend self-help groups as well IL for smoking cessation and patch if
[2018-04-13] MEDS ORDERED: Buprenorphine Hydrochloride 2 mg SL ONE (18:10)
--- NOTE | 2018-04-13 18:15 | CP.PCM.PN ---
Subjective - Date & Time of Evaluation Date of Evaluation: 04/13/18 Time of Evaluation: 13:45 - Subjective Subjective: Patient tolerating diet; reports SBP at PMD office sometimes ~180; doesn't check at home; Objective - Vital Signs/Intake and Output Vital Signs (last 24 hours): Temp Pulse Resp BP Pulse Ox 98.9 F 51 L 18 162/60 H 97 04/13/18 16:40 04/13/18 16:40 04/13/18 16:40 04/13/18 16:40 04/13/18 16:40 - Medications Medications: Current Medications Amlodipine Besylate (Norvasc) 10 mg PO DAILY [facility] Last Admin: 04/13/18 10:08 Dose: 10 mg Aspirin (Ecotrin) 81 mg PO DAILY [facility] Last Admin: 04/13/18 09:06 Dose: 81 mg Buprenorphine HCl (Subutex) 8 mg SL DAILY [facility] PRN Reason: Taper Stop: 04/17/18 09:59 Last Admin: 04/13/18 09:04 Dose: 8 mg Chlordiazepoxide (Librium) 25 mg PO Q4H PRN PRN Reason: Alcohol Withdrawal Clonidine HCl (Catapres) 0.1 mg PO Q8 PRN PRN Reason: COWS Score More or Equal to 5 Last Admin: 04/12/18 19:47 Dose: 0.1 mg Ergocalciferol (Drisdol 50,000 Intl Units Cap) 1 cap PO Q7D [facility] Last Admin: 04/13/18 13:03 Dose: 1 cap Ergocalciferol (Drisdol 50,000 Intl Units Cap) 1 cap PO Q7D [facility] Last Admin: 04/13/18 13:18 Dose: Not Given Folic Acid (Folic Acid) 1 mg PO DAILY [facility] Last Admin: 04/13/18 09:05 Dose: 1 mg Gabapentin (Neurontin) 300 mg PO BID [facility] Last Admin: 04/13/18 17:28 Dose: 300 mg Hydralazine HCl (Apresoline) 10 mg PO TID [facility] Last Admin: 04/13/18 17:28 Dose: 10 mg Hydroxyzine HCl (Atarax) 25 mg PO Q6H PRN PRN Reason: Anxiety Last Admin: 04/12/18 22:01 Dose: 25 mg Ibuprofen (Motrin Tab) 600 mg PO Q6H PRN PRN Reason: Pain, moderate (4-7) Lisinopril (Zestril) 40 mg PO DAILY [facility] Last Admin: 04/13/18 10:09 Dose: 40 mg Loperamide HCl (Imodium) 2 mg PO Q8 PRN PRN Reason: Diarrhea Multivitamins (Hexavitamin) 1 tab PO DAILY [facility] Last Admin: 04/13/18 09:05 Dose: 1 tab Naphazoline HCl/Pheniramine Maleate (Naphcon-A Opht) 0 ml OP TID [facility] Last Admin: 04/13/18 17:30 Dose: 1 drop Nicotine (Nicoderm Cq) 1 patch TD DAILY [facility] Last Admin: 04/13/18 09:05 Dose: 1 patch Ondansetron HCl (Zofran Tab) 4 mg PO Q8 PRN PRN Reason: Nausea/Vomiting Rosuvastatin Calcium (Crestor) 5 mg PO HS [facility] Last Admin: 04/12/18 22:01 Dose: 5 mg Thiamine HCl (Vitamin B1 Tab) 100 mg PO DAILY [facility] Last Admin: 04/13/18 09:05 Dose: 100 mg Trazodone HCl (Desyrel) 50 mg PO HS PRN PRN Reason: Insomnia Last Admin: 04/12/18 22:01 Dose: 50 mg - Labs Labs: 04/11/18 18:27 04/11/18 18:27 - Constitutional Appears: Non-toxic, No Acute Distress - Eye Exam Eye Exam: absent: Scleral icterus - ENT Exam ENT Exam: Mucous Membranes Moist - Respiratory Exam Respiratory Exam: Clear to Ausculation Bilateral. absent: Respiratory Distress - Cardiovascular Exam Cardiovascular Exam: RRR, +S1, +S2 - GI/Abdominal Exam GI & Abdominal Exam: Soft. absent: Distended, Tenderness - Extremities Exam Additional comments: no significant leg edema; - Neurological Exam Neurological Exam: Alert, Awake - Psychiatric Exam Psychiatric exam: Normal Mood. absent: Agitated - Skin Skin Exam: Warm. absent: Cyanosis Assessment and Plan (1) Hypertensive urgency Assessment & Plan: In the setting of opiate withdrawal; on amlodipine 10 mg and lisinopril 40 mg daily, hydralazine started here and increased to 25 mg tid, continue same; goal should be to lower BP gradually (25% in first 24 hrs, as has been done already) ; will have better assessment once withdrawal stops; Status: Acute (2) CKD (chronic kidney disease), stage III Assessment & Plan: Proteinuric kidney disease likely due to DM; awaiting rest of serologic workup; avoid nephrotoxic agents; Status: Chronic (3) Proteinuria Assessment & Plan: 3+ albuminuria on UA, awaiting quantitative values; continue CHARLINE inhibitor; Status: Chronic
--- NOTE | 2018-04-14 07:13 | CP.PCM.PN ---
Subjective - Date & Time of Evaluation Date of Evaluation: 04/14/18 Time of Evaluation: 07:13 - Subjective Subjective: Medicine progress note for Dr. Helton's service Patient was seen and examined at bedside in no acute distress. Patient denies having complaints and reports feeling well. Patient denies chest pain, palpitations, abdominal pain, nausea, vomiting, headaches, dyspnea. Objective - Vital Signs/Intake and Output Vital Signs (last 24 hours): Temp Pulse Resp BP Pulse Ox 98.4 F 73 18 175/93 H 98 04/14/18 06:10 04/14/18 06:10 04/14/18 06:10 04/14/18 06:10 04/14/18 06:10 - Medications Medications: Current Medications Amlodipine Besylate (Norvasc) 10 mg PO DAILY [facility] Last Admin: 04/13/18 10:08 Dose: 10 mg Aspirin (Ecotrin) 81 mg PO DAILY [facility] Last Admin: 04/13/18 09:06 Dose: 81 mg Buprenorphine HCl (Subutex) 8 mg SL DAILY [facility] PRN Reason: Taper Stop: 04/17/18 09:59 Last Admin: 04/13/18 09:04 Dose: 8 mg Chlordiazepoxide (Librium) 25 mg PO Q4H PRN PRN Reason: Alcohol Withdrawal Clonidine HCl (Catapres) 0.1 mg PO Q8 PRN PRN Reason: COWS Score More or Equal to 5 Last Admin: 04/12/18 19:47 Dose: 0.1 mg Ergocalciferol (Drisdol 50,000 Intl Units Cap) 1 cap PO Q7D [facility] Last Admin: 04/13/18 13:03 Dose: 1 cap Ergocalciferol (Drisdol 50,000 Intl Units Cap) 1 cap PO Q7D [facility] Last Admin: 04/13/18 13:18 Dose: Not Given Folic Acid (Folic Acid) 1 mg PO DAILY [facility] Last Admin: 04/13/18 09:05 Dose: 1 mg Gabapentin (Neurontin) 300 mg PO BID [facility] Last Admin: 04/13/18 17:28 Dose: 300 mg Hydralazine HCl (Apresoline) 25 mg PO TID [facility] Hydroxyzine HCl (Atarax) 25 mg PO Q6H PRN PRN Reason: Anxiety Last Admin: 04/12/18 22:01 Dose: 25 mg Ibuprofen (Motrin Tab) 600 mg PO Q6H PRN PRN Reason: Pain, moderate (4-7) Lisinopril (Zestril) 40 mg PO DAILY [facility] Last Admin: 04/13/18 10:09 Dose: 40 mg Loperamide HCl (Imodium) 2 mg PO Q8 PRN PRN Reason: Diarrhea Multivitamins (Hexavitamin) 1 tab PO DAILY [facility] Last Admin: 04/13/18 09:05 Dose: 1 tab Naphazoline HCl/Pheniramine Maleate (Naphcon-A Opht) 0 ml OP TID [facility] Last Admin: 04/13/18 17:30 Dose: 1 drop Nicotine (Nicoderm Cq) 1 patch TD DAILY [facility] Last Admin: 04/13/18 09:05 Dose: 1 patch Ondansetron HCl (Zofran Tab) 4 mg PO Q8 PRN PRN Reason: Nausea/Vomiting Rosuvastatin Calcium (Crestor) 5 mg PO HS [facility] Last Admin: 04/13/18 21:10 Dose: 5 mg Thiamine HCl (Vitamin B1 Tab) 100 mg PO DAILY [facility] Last Admin: 04/13/18 09:05 Dose: 100 mg Trazodone HCl (Desyrel) 50 mg PO HS PRN PRN Reason: Insomnia Last Admin: 04/13/18 21:10 Dose: 50 mg - Labs Labs: 04/11/18 18:27 04/11/18 18:27 - Additional Findings Additional findings: - Constitutional Appears: No Acute Distress - Head Exam Head Exam: ATRAUMATIC, NORMOCEPHALIC - Eye Exam Eye Exam: EOMI - ENT Exam ENT Exam: Mucous Membranes Moist - Respiratory Exam Respiratory Exam: Clear to Ausculation Bilateral, NORMAL BREATHING PATTERN. absent: Rales, Rhonchi, Wheezes - Cardiovascular Exam Cardiovascular Exam: REGULAR RHYTHM, +S1, +S2 - GI/Abdominal Exam GI & Abdominal Exam: Soft, Normal Bowel Sounds. absent: Distended, Tenderness - Extremities Exam Extremities Exam: Normal Inspection - Neurological Exam Neurological Exam: Alert, Awake, Oriented x3 - Psychiatric Exam Psychiatric exam: Normal Mood - Skin Skin Exam: Dry, Intact, Normal Color, Warm Assessment and Plan - Assessment and Plan (Free Text) Plan: Hypertension Uncontrolled EKG- sinus rhythm w/ occasional PVCs and PACs; anterior infarct age undetermined Amlodipine 10mg PO daily Lisinopril 40mg PO daily Hydralazine 25mg PO TID [increased from 10mg TID on 04/13/18] Chlorthalidone 25mg PO Q4h prn (started on 04/14/[address] Smith) Continue to monitor vitals Hx CVA Aspirin 81mg PO daily Crestor 5mg PO HS CKD, proteinuria Nephrology consulted, Dr. Smith, help appreciated Bladder US: normal Detox Per Detox/psychiatry Vitamin D Deficiency Vit D <12.8 Ergocalciferol 50,000u q7days (started on 04/13/18)
[2018-04-14 08:31] LABS: ALBUMIN (PEP) 3.4 g/dL (3.8-4.8); ALPHA-1-GLOBULIN (PEP) 0.3 g/dL (0.2-0.3)
[2018-04-14] MEDS: Naphazoline-Pheniramine Ophth Soln OP SCH ×3 (09:53→17:07)
[2018-04-14] MEDS: Multiple Vitamins Tab PO SCH (09:53)
[2018-04-14] MEDS: Buprenorphine Hydrochloride 2 mg SL SCH (09:54)
[2018-04-14] MEDS ORDERED: Vitamins A & D Oint UD Foilpak TOP PRN (12:49)
--- NOTE | 2018-04-14 14:09 | PCM.PYCHPN ---
Psychiatric Progress Note - Psychiatric Progress Note Patient seen today, length of contact: 15 min Patient Chief Complaint: "I still need an extra dose" Problems Identified/Issues Discussed: The pt is seen, chart reviewed, case discussed with staff. The pt is compliant with medications and reports no side-effects. Symptoms are improving but needs more time to stabilize. After care discussed, support and psychoeducation given. She says she withdraws more at night and asked for another 2 mg She got 10 in total, but 6 today so far, 2 will be added Medication Change: Yes (detox changes daily) Medical Record Reviewed: Yes Mental Status Examination - Cognitive Function Orientation: Person, Place, Situation, Time Memory: Impaired Attention: Poor Concentration: Poor Association: WNL Fund of Knowledge: Poor - Mood Mood: Anxious - Affect Affect: Constricted - Speech Speech: Appropriate - Formal Thought Process Formal Thought Process: No Impairment - Suicidal Ideation Suicidal Ideation: No - Homicidal Ideation Homicidal Ideation: No Goal/Treatment Plan - Goal/Treatment Plan Need for Continued Stay: Discharge may exacerbated symptoms, Severe functional impairment Progress Toward Problem(s) and Goals/Treatment Plan: Subutex detox As needed medications Gabapentin for augmentation if needed All risks, benefits and alternatives of medications, including no medications, discussed and the patient understood and agreed. Attend groups and activities Supportive therapy and psychoeducation [place] for abstinence CBT for relapse prevention Encourage MAT Refer to rehab or IOP Attend self-help groups as well [place] for smoking cessation and patch if
[2018-04-14] MEDS ORDERED: Magnesium Hydroxide Susp 30 ml UD PO ONE (15:21)
[2018-04-14] MEDS ORDERED: Buprenorphine Hydrochloride 2 mg SL ONE (17:00)
--- NOTE | 2018-04-15 05:29 | CP.PCM.PN ---
Subjective - Date & Time of Evaluation Date of Evaluation: 04/14/18 Time of Evaluation: 19:00 - Subjective Subjective: Patient denies sob; urinating more today after starting diuretic; frothy urine; Objective - Vital Signs/Intake and Output Vital Signs (last 24 hours): Temp Pulse Resp BP Pulse Ox 98.0 F 71 18 148/87 97 04/15/18 05:25 04/15/18 05:25 04/15/18 05:25 04/15/18 05:25 04/15/18 05:25 - Medications Medications: Current Medications Amlodipine Besylate (Norvasc) 10 mg PO DAILY [facility] Last Admin: 04/14/18 09:53 Dose: 10 mg Aspirin (Ecotrin) 81 mg PO DAILY [facility] Last Admin: 04/14/18 09:54 Dose: 81 mg Buprenorphine HCl (Subutex) 6 mg SL DAILY [facility] PRN Reason: Taper Stop: 04/17/18 09:59 Last Admin: 04/14/18 09:54 Dose: 6 mg Chlordiazepoxide (Librium) 25 mg PO Q4H PRN PRN Reason: Alcohol Withdrawal Chlorthalidone (Hygroton) 25 mg PO DAILY [facility] Last Admin: 04/14/18 09:54 Dose: 25 mg Clonidine HCl (Catapres) 0.1 mg PO Q8 PRN PRN Reason: COWS Score More or Equal to 5 Last Admin: 04/14/18 17:06 Dose: 0.1 mg Ergocalciferol (Drisdol 50,000 Intl Units Cap) 1 cap PO Q7D [facility] Last Admin: 04/13/18 13:03 Dose: 1 cap Folic Acid (Folic Acid) 1 mg PO DAILY [facility] Last Admin: 04/14/18 09:53 Dose: 1 mg Gabapentin (Neurontin) 300 mg PO BID [facility] Last Admin: 04/14/18 17:06 Dose: 300 mg Hydralazine HCl (Apresoline) 25 mg PO Q8 [facility] Last Admin: 04/14/18 21:14 Dose: 25 mg Hydroxyzine HCl (Atarax) 25 mg PO Q6H PRN PRN Reason: Anxiety Last Admin: 04/14/18 23:04 Dose: 25 mg Ibuprofen (Motrin Tab) 600 mg PO Q6H PRN PRN Reason: Pain, moderate (4-7) Lisinopril (Zestril) 40 mg PO DAILY [facility] Last Admin: 04/14/18 09:53 Dose: 40 mg Loperamide HCl (Imodium) 2 mg PO Q8 PRN PRN Reason: Diarrhea Multivitamins (Hexavitamin) 1 tab PO DAILY [facility] Last Admin: 04/14/18 09:53 Dose: 1 tab Naphazoline HCl/Pheniramine Maleate (Naphcon-A Opht) 0 ml OP TID [facility] Last Admin: 04/14/18 17:07 Dose: 1 drop Nicotine (Nicoderm Cq) 1 patch TD DAILY [facility] Last Admin: 04/14/18 09:54 Dose: 1 patch Ondansetron HCl (Zofran Tab) 4 mg PO Q8 PRN PRN Reason: Nausea/Vomiting Rosuvastatin Calcium (Crestor) 5 mg PO HS [facility] Last Admin: 04/14/18 21:15 Dose: 5 mg Thiamine HCl (Vitamin B1 Tab) 100 mg PO DAILY [facility] Last Admin: 04/14/18 09:53 Dose: 100 mg Trazodone HCl (Desyrel) 50 mg PO HS PRN PRN Reason: Insomnia Last Admin: 04/14/18 23:04 Dose: 50 mg Vitamin A (Vitamin A & D Oint Ud Foilpak) 1 ea TOP BID PRN PRN Reason: Dry skin Last Admin: 04/14/18 13:18 Dose: 1 ea - Labs Labs: 04/11/18 18:27 04/11/18 18:27 - Constitutional Appears: Non-toxic, No Acute Distress - Eye Exam Eye Exam: absent: Scleral icterus - ENT Exam ENT Exam: Mucous Membranes Moist - Respiratory Exam Respiratory Exam: Clear to Ausculation Bilateral. absent: Respiratory Distress - Cardiovascular Exam Cardiovascular Exam: RRR, +S1, +S2 - GI/Abdominal Exam GI & Abdominal Exam: Soft. absent: Distended, Tenderness - Extremities Exam Additional comments: minimal lower leg edema - Neurological Exam Neurological Exam: Alert, Awake - Psychiatric Exam Psychiatric exam: Normal Mood. absent: Agitated - Skin Skin Exam: Warm. absent: Cyanosis Assessment and Plan (1) Hypertensive urgency Assessment & Plan: BP better controlled after regular dosing of hydralazine and starting chlorthalidone; continue same along with amlodipine and lisinopril; Status: Acute (2) CKD (chronic kidney disease), stage III Assessment & Plan: Serologic workup thus far unremarkable; however, patient advised that she should undergo renal biopsy to look for causes of CKD other than DM, can be as outpatient done once discharged; -avoid nephrotoxic agents including NSAIDS, phosphate enema; -PTH elevated, already started on ergocalciferol weekly, continue; -Needs close outpatient f/u; -Awaiting results of rest of workup; Status: Chronic (3) Proteinuria Assessment & Plan: Nephrotic range proteinuria without overt nephrotic syndrome; will obtain 24 hr urine to better quantify; continue max dose of lisinopril (40 mg daily); Status: Chronic
--- NOTE | 2018-04-15 06:54 | CP.PCM.PN ---
Subjective - Date & Time of Evaluation Date of Evaluation: 04/15/18 Time of Evaluation: 06:54 - Subjective Subjective: Medicine progress note for Dr. Helton's service Patient was seen and examined at bedside in no acute distress. Patient states she has not had a BM since Friday; otherwise reports feeling well. Patient denies chest pain, palpitations, abdominal pain, nausea, vomiting, headaches, dyspnea. Objective - Vital Signs/Intake and Output Vital Signs (last 24 hours): Temp Pulse Resp BP Pulse Ox 98.0 F 71 18 148/87 97 04/15/18 05:25 04/15/18 05:25 04/15/18 05:25 04/15/18 05:25 04/15/18 05:25 - Medications Medications: Current Medications Amlodipine Besylate (Norvasc) 10 mg PO DAILY [facility] Last Admin: 04/14/18 09:53 Dose: 10 mg Aspirin (Ecotrin) 81 mg PO DAILY [facility] Last Admin: 04/14/18 09:54 Dose: 81 mg Buprenorphine HCl (Subutex) 6 mg SL DAILY [facility] PRN Reason: Taper Stop: 04/17/18 09:59 Last Admin: 04/14/18 09:54 Dose: 6 mg Chlordiazepoxide (Librium) 25 mg PO Q4H PRN PRN Reason: Alcohol Withdrawal Chlorthalidone (Hygroton) 25 mg PO DAILY [facility] Last Admin: 04/14/18 09:54 Dose: 25 mg Clonidine HCl (Catapres) 0.1 mg PO Q8 PRN PRN Reason: COWS Score More or Equal to 5 Last Admin: 04/14/18 17:06 Dose: 0.1 mg Ergocalciferol (Drisdol 50,000 Intl Units Cap) 1 cap PO Q7D [facility] Last Admin: 04/13/18 13:03 Dose: 1 cap Folic Acid (Folic Acid) 1 mg PO DAILY [facility] Last Admin: 04/14/18 09:53 Dose: 1 mg Gabapentin (Neurontin) 300 mg PO BID [facility] Last Admin: 04/14/18 17:06 Dose: 300 mg Hydralazine HCl (Apresoline) 25 mg PO Q8 [facility] Last Admin: 04/15/18 05:47 Dose: 25 mg Hydroxyzine HCl (Atarax) 25 mg PO Q6H PRN PRN Reason: Anxiety Last Admin: 04/14/18 23:04 Dose: 25 mg Ibuprofen (Motrin Tab) 600 mg PO Q6H PRN PRN Reason: Pain, moderate (4-7) Lisinopril (Zestril) 40 mg PO DAILY [facility] Last Admin: 04/14/18 09:53 Dose: 40 mg Loperamide HCl (Imodium) 2 mg PO Q8 PRN PRN Reason: Diarrhea Multivitamins (Hexavitamin) 1 tab PO DAILY [facility] Last Admin: 04/14/18 09:53 Dose: 1 tab Naphazoline HCl/Pheniramine Maleate (Naphcon-A Opht) 0 ml OP TID [facility] Last Admin: 04/14/18 17:07 Dose: 1 drop Nicotine (Nicoderm Cq) 1 patch TD DAILY [facility] Last Admin: 04/14/18 09:54 Dose: 1 patch Ondansetron HCl (Zofran Tab) 4 mg PO Q8 PRN PRN Reason: Nausea/Vomiting Rosuvastatin Calcium (Crestor) 5 mg PO HS [facility] Last Admin: 04/14/18 21:15 Dose: 5 mg Thiamine HCl (Vitamin B1 Tab) 100 mg PO DAILY [facility] Last Admin: 04/14/18 09:53 Dose: 100 mg Trazodone HCl (Desyrel) 50 mg PO HS PRN PRN Reason: Insomnia Last Admin: 04/14/18 23:04 Dose: 50 mg Vitamin A (Vitamin A & D Oint Ud Foilpak) 1 ea TOP BID PRN PRN Reason: Dry skin Last Admin: 04/14/18 13:18 Dose: 1 ea - Labs Labs: 04/11/18 18:27 04/11/18 18:27 - Additional Findings Additional findings: - Additional Findings Additional findings: - Constitutional Appears: No Acute Distress - Head Exam Head Exam: ATRAUMATIC, NORMOCEPHALIC - Eye Exam Eye Exam: EOMI - ENT Exam ENT Exam: Mucous Membranes Moist - Respiratory Exam Respiratory Exam: Clear to Ausculation Bilateral, NORMAL BREATHING PATTERN. absent: Rales, Rhonchi, Wheezes - Cardiovascular Exam Cardiovascular Exam: REGULAR RHYTHM, +S1, +S2 - GI/Abdominal Exam GI & Abdominal Exam: Soft, Normal Bowel Sounds. absent: Distended, Tenderness - Extremities Exam Extremities Exam: Normal Inspection - Neurological Exam Neurological Exam: Alert, Awake, Oriented x3 - Psychiatric Exam Psychiatric exam: Normal Mood - Skin Skin Exam: Dry, Intact, Normal Color, Warm Assessment and Plan - Assessment and Plan (Free Text) Plan: Hypertension Uncontrolled, however, improving EKG- sinus rhythm w/ occasional PVCs and PACs; anterior infarct age undetermined Amlodipine 10mg PO daily Lisinopril 40mg PO daily Hydralazine 25mg PO TID [increased from 10mg TID on 04/13/18] Chlorthalidone 25mg PO Q4h prn (started on 04/14/[address] Smith) Continue to monitor vitals Hx CVA Aspirin 81mg PO daily Crestor 5mg PO HS CKD, proteinuria Nephrology consulted, Dr. Smith, help appreciated Bladder US: normal Per nephrology, patient encouraged to have outpatient renal biopsy and further workup. Detox Per Detox/psychiatry Vitamin D Deficiency Vit D <12.8 Ergocalciferol 50,000u q7days (started on 04/13/18) Constipation Likely secondary to withdrawal Miralax given. Encouraged increased hydration.
[2018-04-15] MEDS: Multiple Vitamins Tab PO SCH (09:43)
[2018-04-15] MEDS: Buprenorphine Hydrochloride 2 mg SL SCH (09:43)
[2018-04-15] MEDS: Naphazoline-Pheniramine Ophth Soln OP SCH ×3 (09:45→17:37)
[2018-04-15] MEDS ORDERED: Buprenorphine Hydrochloride 2 mg SL ONE ×2 (09:50→17:00)
[2018-04-15] MEDS ORDERED: POLYETHYLENE GLYCOL 3350 17 GM/Dose PACKET PO ONE ×2 (11:10→14:18)
--- NOTE | 2018-04-15 12:32 | PCM.PYCHPN ---
Psychiatric Progress Note - Psychiatric Progress Note Patient seen today, length of contact: 15 min Patient Chief Complaint: "I am better" Problems Identified/Issues Discussed: The pt is seen, chart reviewed, case discussed with staff. Support and psychoeducation given, CBT and [place] used briefly No new symptoms reported, improving slowly and needs more time She accidentally swallowed her subutex 4 mg with other meds. Since it is iunactive in GI system, we gave another 4 mg She will also take 2 mg in PM as before DC date is moved to (6 mg today, 4 and then 2 mg following days) No SEs from medications, risks discussed. After care discussed Medication Change: Yes (detox changes daily) Medical Record Reviewed: Yes Mental Status Examination - Cognitive Function Orientation: Person, Place, Situation, Time Memory: Impaired Attention: Poor Concentration: Poor Association: WNL Fund of Knowledge: Poor - Mood Mood: Anxious - Affect Affect: Constricted - Speech Speech: Appropriate - Formal Thought Process Formal Thought Process: No Impairment - Suicidal Ideation Suicidal Ideation: No - Homicidal Ideation Homicidal Ideation: No Goal/Treatment Plan - Goal/Treatment Plan Need for Continued Stay: Discharge may exacerbated symptoms, Severe functional impairment Progress Toward Problem(s) and Goals/Treatment Plan: Subutex detox As needed medications Gabapentin for augmentation if needed All risks, benefits and alternatives of medications, including no medications, discussed and the patient understood and agreed. Attend groups and activities Supportive therapy and psychoeducation [place] for abstinence CBT for relapse prevention Encourage MAT Refer to rehab or IOP Attend self-help groups as well [place] for smoking cessation and patch if
--- NOTE | 2018-04-15 19:37 | CP.PCM.PN ---
Subjective - Date & Time of Evaluation Date of Evaluation: 04/15/18 Time of Evaluation: 13:00 - Subjective Subjective: Patient reports feeling well; no sob, nausea/vomiting; Objective - Vital Signs/Intake and Output Vital Signs (last 24 hours): Temp Pulse Resp BP Pulse Ox 98.3 F 66 18 176/95 H 98 04/15/18 16:33 04/15/18 16:33 04/15/18 16:33 04/15/18 16:33 04/15/18 16:33 - Medications Medications: Current Medications Amlodipine Besylate (Norvasc) 10 mg PO DAILY [facility] Last Admin: 04/15/18 09:43 Dose: 10 mg Aspirin (Ecotrin) 81 mg PO DAILY [facility] Last Admin: 04/15/18 09:43 Dose: 81 mg Buprenorphine HCl (Subutex) 4 mg SL DAILY [facility] PRN Reason: Taper Stop: 04/17/18 09:59 Last Admin: 04/15/18 09:43 Dose: 4 mg Chlordiazepoxide (Librium) 25 mg PO Q4H PRN PRN Reason: Alcohol Withdrawal Chlorthalidone (Hygroton) 25 mg PO DAILY [facility] Last Admin: 04/15/18 09:44 Dose: 25 mg Clonidine HCl (Catapres) 0.1 mg PO Q8 PRN PRN Reason: COWS Score More or Equal to 5 Last Admin: 04/15/18 16:09 Dose: 0.1 mg Ergocalciferol (Drisdol 50,000 Intl Units Cap) 1 cap PO Q7D [facility] Last Admin: 04/13/18 13:03 Dose: 1 cap Folic Acid (Folic Acid) 1 mg PO DAILY [facility] Last Admin: 04/15/18 09:43 Dose: 1 mg Gabapentin (Neurontin) 300 mg PO BID [facility] Last Admin: 04/15/18 17:37 Dose: 300 mg Hydralazine HCl (Apresoline) 25 mg PO Q8 [facility] Last Admin: 04/15/18 13:15 Dose: 25 mg Hydroxyzine HCl (Atarax) 25 mg PO Q6H PRN PRN Reason: Anxiety Last Admin: 04/14/18 23:04 Dose: 25 mg Ibuprofen (Motrin Tab) 600 mg PO Q6H PRN PRN Reason: Pain, moderate (4-7) Lisinopril (Zestril) 40 mg PO DAILY [facility] Last Admin: 04/15/18 09:45 Dose: 40 mg Loperamide HCl (Imodium) 2 mg PO Q8 PRN PRN Reason: Diarrhea Multivitamins (Hexavitamin) 1 tab PO DAILY [facility] Last Admin: 04/15/18 09:43 Dose: 1 tab Naphazoline HCl/Pheniramine Maleate (Naphcon-A Opht) 0 ml OP TID [facility] Last Admin: 04/15/18 17:37 Dose: 1 drop Nicotine (Nicoderm Cq) 1 patch TD DAILY [facility] Last Admin: 04/15/18 09:45 Dose: 1 patch Ondansetron HCl (Zofran Tab) 4 mg PO Q8 PRN PRN Reason: Nausea/Vomiting Rosuvastatin Calcium (Crestor) 5 mg PO HS [facility] Last Admin: 04/14/18 21:15 Dose: 5 mg Thiamine HCl (Vitamin B1 Tab) 100 mg PO DAILY [facility] Last Admin: 04/15/18 09:43 Dose: 100 mg Trazodone HCl (Desyrel) 50 mg PO HS PRN PRN Reason: Insomnia Last Admin: 04/14/18 23:04 Dose: 50 mg Vitamin A (Vitamin A & D Oint Ud Foilpak) 1 ea TOP BID PRN PRN Reason: Dry skin Last Admin: 04/14/18 13:18 Dose: 1 ea - Labs Labs: 04/11/18 18:27 04/11/18 18:27 - Constitutional Appears: Non-toxic, No Acute Distress - Eye Exam Eye Exam: Normal appearance - ENT Exam ENT Exam: Mucous Membranes Moist - Respiratory Exam Respiratory Exam: Clear to Ausculation Bilateral. absent: Respiratory Distress - Cardiovascular Exam Cardiovascular Exam: RRR, +S1, +S2 - GI/Abdominal Exam GI & Abdominal Exam: Soft. absent: Distended, Tenderness - Extremities Exam Additional comments: mild lower leg edema - Neurological Exam Neurological Exam: Alert, Awake - Psychiatric Exam Psychiatric exam: Normal Mood. absent: Agitated - Skin Skin Exam: Warm. absent: Cyanosis Assessment and Plan (1) Hypertensive urgency Assessment & Plan: BP fluctuating but overall better controlled; continue current meds; if withdrawal symptoms improved, can consider holding hydralazine and re-assessing; Status: Acute (2) CKD (chronic kidney disease), stage III Assessment & Plan: With nephrotic range proteinuria, no overt nephrotic syndrome; obtaining 24 hr urine for UPEP; patient seems amenable for renal biopsy, will coordinate as outpatient; Status: Chronic (3) Proteinuria Status: Chronic
--- NOTE | 2018-04-16 06:50 | CP.PCM.PN ---
Subjective - Date & Time of Evaluation Date of Evaluation: 04/16/18 Time of Evaluation: 06:50 - Subjective Subjective: Medicine progress note for Dr. Helton's service Patient was seen and examined at [facility] in no acute distress. Patient reports feeling well and has no complaints or symptoms of withdrawal/hypertension this morning. Patient still has not had a BM, however, is passing gas. Patient denies chest pain, dyspnea, abdominal pain, nausea, vomiting, fevers, headaches , dysuria. Objective - Vital Signs/Intake and Output Vital Signs (last 24 hours): Temp Pulse Resp BP Pulse Ox 98.4 F 60 18 143/76 96 04/15/18 21:54 04/15/18 21:54 04/15/18 21:54 04/15/18 21:54 04/15/18 21:54 - Medications Medications: Current Medications Amlodipine Besylate (Norvasc) 10 mg PO DAILY [facility] Last Admin: 04/15/18 09:43 Dose: 10 mg Aspirin (Ecotrin) 81 mg PO DAILY [facility] Last Admin: 04/15/18 09:43 Dose: 81 mg Buprenorphine HCl (Subutex) 4 mg SL DAILY [facility] PRN Reason: Taper Stop: 04/17/18 09:59 Last Admin: 04/15/18 09:43 Dose: 4 mg Chlordiazepoxide (Librium) 25 mg PO Q4H PRN PRN Reason: Alcohol Withdrawal Chlorthalidone (Hygroton) 25 mg PO DAILY [facility] Last Admin: 04/15/18 09:44 Dose: 25 mg Clonidine HCl (Catapres) 0.1 mg PO Q8 PRN PRN Reason: COWS Score More or Equal to 5 Last Admin: 04/15/18 16:09 Dose: 0.1 mg Ergocalciferol (Drisdol 50,000 Intl Units Cap) 1 cap PO Q7D [facility] Last Admin: 04/13/18 13:03 Dose: 1 cap Folic Acid (Folic Acid) 1 mg PO DAILY [facility] Last Admin: 04/15/18 09:43 Dose: 1 mg Gabapentin (Neurontin) 300 mg PO BID [facility] Last Admin: 04/15/18 17:37 Dose: 300 mg Hydralazine HCl (Apresoline) 25 mg PO Q8 [facility] Last Admin: 04/16/18 06:43 Dose: 25 mg Hydroxyzine HCl (Atarax) 25 mg PO Q6H PRN PRN Reason: Anxiety Last Admin: 04/15/18 21:16 Dose: 25 mg Ibuprofen (Motrin Tab) 600 mg PO Q6H PRN PRN Reason: Pain, moderate (4-7) Lisinopril (Zestril) 40 mg PO DAILY [facility] Last Admin: 04/15/18 09:45 Dose: 40 mg Loperamide HCl (Imodium) 2 mg PO Q8 PRN PRN Reason: Diarrhea Multivitamins (Hexavitamin) 1 tab PO DAILY [facility] Last Admin: 04/15/18 09:43 Dose: 1 tab Naphazoline HCl/Pheniramine Maleate (Naphcon-A Opht) 0 ml OP TID [facility] Last Admin: 04/15/18 17:37 Dose: 1 drop Nicotine (Nicoderm Cq) 1 patch TD DAILY [facility] Last Admin: 04/15/18 09:45 Dose: 1 patch Ondansetron HCl (Zofran Tab) 4 mg PO Q8 PRN PRN Reason: Nausea/Vomiting Rosuvastatin Calcium (Crestor) 5 mg PO HS [facility] Last Admin: 04/15/18 21:17 Dose: 5 mg Thiamine HCl (Vitamin B1 Tab) 100 mg PO DAILY [facility] Last Admin: 04/15/18 09:43 Dose: 100 mg Trazodone HCl (Desyrel) 50 mg PO HS PRN PRN Reason: Insomnia Last Admin: 04/15/18 21:18 Dose: 50 mg Vitamin A (Vitamin A & D Oint Ud Foilpak) 1 ea TOP BID PRN PRN Reason: Dry skin Last Admin: 04/14/18 13:18 Dose: 1 ea - Labs Labs: 04/11/18 18:27 04/11/18 18:27 - Additional Findings Additional findings: - Constitutional Appears: No Acute Distress - Head Exam Head Exam: ATRAUMATIC, NORMOCEPHALIC - Eye Exam Eye Exam: EOMI - ENT Exam ENT Exam: Mucous Membranes Moist - Respiratory Exam Respiratory Exam: Clear to Ausculation Bilateral, NORMAL BREATHING PATTERN. absent: Rales, Rhonchi, Wheezes - Cardiovascular Exam Cardiovascular Exam: REGULAR RHYTHM, +S1, +S2 - GI/Abdominal Exam GI & Abdominal Exam: Soft, Normal Bowel Sounds. absent: Distended, Tenderness - Extremities Exam Extremities Exam: Normal Inspection - Neurological Exam Neurological Exam: Alert, Awake, Oriented x3 - Psychiatric Exam Psychiatric exam: Normal Mood - Skin Skin Exam: Dry, Intact, Normal Color, Warm Assessment and Plan - Assessment and Plan (Free Text) Plan: Hypertension Improving EKG- sinus rhythm w/ occasional PVCs and PACs; anterior infarct age undetermined Amlodipine 10mg PO daily Lisinopril 40mg PO daily Hydralazine 25mg PO TID [increased from 10mg TID on 04/13/18] Chlorthalidone 25mg PO Q4h prn (started on 04/14/[address] Smith) Continue to monitor vitals Hx CVA Aspirin 81mg PO daily Crestor 5mg PO HS CKD, proteinuria Nephrology consulted, Dr. Smith, help appreciated Bladder US: normal Per nephrology, patient encouraged to have outpatient renal biopsy and further workup. Detox Per Detox/psychiatry Vitamin D Deficiency Vit D <12.8 Ergocalciferol 50,000u q7days (started on 04/13/18) Constipation Likely secondary to withdrawal Miralax given on 04/15 Encouraged increased hydration and prune juice. Dulcolax and milk of magnesia given on 04/16/18 Continue to monitor
--- NOTE | 2018-04-16 08:54 | PCM.PYCHPN ---
Psychiatric Progress Note - Psychiatric Progress Note Patient seen today, length of contact: 15 min Patient Chief Complaint: "I can't use the bathroom" Problems Identified/Issues Discussed: The pt is seen, chart reviewed, case discussed with staff. She has improved a lot Support and IL used Dulcolax ordered No breakthru sxs now She is on am-pm subutex one more day After care discussed Medication Change: Yes (detox changes daily) Medical Record Reviewed: Yes Mental Status Examination - Cognitive Function Orientation: Person, Place, Situation, Time Memory: Impaired Attention: Poor Concentration: Poor Association: WNL Fund of Knowledge: Poor - Mood Mood: Anxious - Affect Affect: Constricted - Speech Speech: Appropriate - Formal Thought Process Formal Thought Process: No Impairment - Suicidal Ideation Suicidal Ideation: No - Homicidal Ideation Homicidal Ideation: No Goal/Treatment Plan - Goal/Treatment Plan Need for Continued Stay: Discharge may exacerbated symptoms, Severe functional impairment Progress Toward Problem(s) and Goals/Treatment Plan: Subutex detox As needed medications Gabapentin for augmentation if needed All risks, benefits and alternatives of medications, including no medications, discussed and the patient understood and agreed. Attend groups and activities Supportive therapy and psychoeducation [place] for abstinence CBT for relapse prevention Encourage MAT Refer to rehab or IOP Attend self-help groups as well [place] for smoking cessation and patch if
[2018-04-16] MEDS: Naphazoline-Pheniramine Ophth Soln OP SCH ×3 (09:39→18:19)
[2018-04-16] MEDS: Multiple Vitamins Tab PO SCH (09:39)
[2018-04-16] MEDS: Buprenorphine Hydrochloride 2 mg SL SCH (09:40)
[2018-04-16] MEDS ORDERED: Bisacodyl 5mg EC Tab PO ONE (10:17)
[2018-04-16] MEDS ORDERED: Magnesium Hydroxide Susp 30 ml UD PO ONE (11:00)
[2018-04-16] MEDS ORDERED: Buprenorphine Hydrochloride 2 mg SL ONE (17:00)
--- NOTE | 2018-04-16 18:12 | CP.PCM.PN ---
Objective - Vital Signs/Intake and Output Vital Signs (last 24 hours): Temp Pulse Resp BP Pulse Ox 98.6 F 60 18 148/78 96 04/16/18 16:58 04/16/18 16:58 04/16/18 16:58 04/16/18 16:58 04/16/18 16:58 - Medications Medications: Current Medications Amlodipine Besylate (Norvasc) 10 mg PO DAILY [facility] Last Admin: 04/16/18 09:40 Dose: 10 mg Aspirin (Ecotrin) 81 mg PO DAILY [facility] Last Admin: 04/16/18 09:40 Dose: 81 mg Buprenorphine HCl (Subutex) 2 mg SL DAILY [facility] PRN Reason: Taper Stop: 04/17/18 09:59 Last Admin: 04/16/18 09:40 Dose: 2 mg Chlordiazepoxide (Librium) 25 mg PO Q4H PRN PRN Reason: Alcohol Withdrawal Chlorthalidone (Hygroton) 25 mg PO DAILY [facility] Last Admin: 04/16/18 09:40 Dose: 25 mg Clonidine HCl (Catapres) 0.1 mg PO Q8 PRN PRN Reason: COWS Score More or Equal to 5 Last Admin: 04/15/18 16:09 Dose: 0.1 mg Ergocalciferol (Drisdol 50,000 Intl Units Cap) 1 cap PO Q7D [facility] Last Admin: 04/13/18 13:03 Dose: 1 cap Folic Acid (Folic Acid) 1 mg PO DAILY [facility] Last Admin: 04/16/18 09:39 Dose: 1 mg Gabapentin (Neurontin) 300 mg PO BID [facility] Last Admin: 04/16/18 09:39 Dose: 300 mg Hydralazine HCl (Apresoline) 25 mg PO Q8 [facility] Last Admin: 04/16/18 13:53 Dose: 25 mg Hydroxyzine HCl (Atarax) 25 mg PO Q6H PRN PRN Reason: Anxiety Last Admin: 04/15/18 21:16 Dose: 25 mg Ibuprofen (Motrin Tab) 600 mg PO Q6H PRN PRN Reason: Pain, moderate (4-7) Lisinopril (Zestril) 40 mg PO DAILY [facility] Last Admin: 04/16/18 09:40 Dose: 40 mg Loperamide HCl (Imodium) 2 mg PO Q8 PRN PRN Reason: Diarrhea Multivitamins (Hexavitamin) 1 tab PO DAILY [facility] Last Admin: 04/16/18 09:39 Dose: 1 tab Naphazoline HCl/Pheniramine Maleate (Naphcon-A Opht) 0 ml OP TID [facility] Last Admin: 04/16/18 13:53 Dose: 1 drop Nicotine (Nicoderm Cq) 1 patch TD DAILY [facility] Last Admin: 04/16/18 09:39 Dose: 1 patch Ondansetron HCl (Zofran Tab) 4 mg PO Q8 PRN PRN Reason: Nausea/Vomiting Rosuvastatin Calcium (Crestor) 5 mg PO HS [facility] Last Admin: 04/15/18 21:17 Dose: 5 mg Thiamine HCl (Vitamin B1 Tab) 100 mg PO DAILY [facility] Last Admin: 04/16/18 09:39 Dose: 100 mg Trazodone HCl (Desyrel) 50 mg PO HS PRN PRN Reason: Insomnia Last Admin: 04/15/18 21:18 Dose: 50 mg Vitamin A (Vitamin A & D Oint Ud Foilpak) 1 ea TOP BID PRN PRN Reason: Dry skin Last Admin: 04/14/18 13:18 Dose: 1 ea - Labs Labs: 04/11/18 18:27 04/11/18 18:27 Assessment and Plan (1) Hypertensive urgency Status: Acute (2) CKD (chronic kidney disease), stage III Status: Chronic (3) Proteinuria Status: Chronic
[2018-04-17] MEDS ORDERED: Buprenorphine Hydrochloride 2 mg SL ONE (08:51)
--- NOTE | 2018-04-17 08:51 | PCM.PYCHDC ---
Mental Status Examination - Mental Status Examination Orientation: Person, Place, Situation, Time Memory: Intact Mood: Anxious Affect: Constricted Speech: Appropriate Attention: WNL Concentration: Poor Association: WNL Fund of Knowledge: WNL Formal Thought Process: No Impairment Suicidal Ideation: No Current Homicidal Ideation?: No Discharge Summary - Discharge Note Reason for Hospitalization: Opioid detox Laboratory Data: Abnormal Lab Results 04/13/18 04/16/18 04/17/18 08:12 07:17 07:41 POC Glucose (mg/dL) 122 H 108 [place]/Lambda Light Chain Free [place] Light Chains 33.2 H Free [place] Light Chain 25.5 Free [place]/Lambda Ratio 1.30 Consultations:: List each consultation separately and include: 1. Reason for request. 2. Findings. 3. Follow-up Summary of Hospital Course include:: 1. Description of specific treatment plan utilized for patients during their course of treatmen. 2. Summarize the time- course for resolution of acute symptoms and/or regressed behaviors. 3. Describe issues identified and worked on during hospitalization. 4. Describe medication utilized. 5. Describe medical problems identified and treated. 6. Reassessment of suicide risk Summary of Hospital Course: The pt was admitted and started on treatment with psychotherapy, support, psychoeducation and medications. OK and CBT used. The pt attended groups and activities, as well as milieu therapy. All the risks and benefits of medications are discussed and the patient understood and agreed. The pt improved with the treatments provided. After care discussed with the patient. She will attend [facility]. - Final Diagnosis (DSM 5) Condition upon Discharge: IMPROVED DSM 5: Opioid use disorder, severe, dependence Opioid withdrawal Cocaine use disorder Alcohol use disorder, severe, dependence Alcohol withdrawal Disposition: HOME/ ROUTINE Follow-up Treatment Plan: Continue below medications after discharge. Follow after care plan as discussed. Use relapse prevention skills Return to ER or call 911 if suicidal, homicidal or symptoms relapse. Stay away from stress, alcohol and drugs. See primary doctor regularly and get labs. Prescriptions/Medication Reconciliation: amLODIPine [Norvasc] 10 mg PO DAILY #30 tab Aspirin [Ecotrin] 81 mg PO DAILY #30 tabec Chlorthalidone [Hygroton] 25 mg PO DAILY #30 tab Ergocalciferol [Drisdol 50,000 Intl Units Cap] 1 cap PO Q7D #4 cap Gabapentin [Neurontin] 300 mg PO BID #60 cap hydrALAZINE [Apresoline] 25 mg PO Q8 #90 tab Lisinopril [Zestril] 40 mg PO DAILY #30 tab Multivitamins [Hexavitamin] 1 tab PO DAILY #30 tab traZODone [Desyrel] 50 mg PO HS PRN #30 tab PRN Reason: Insomnia
[2018-04-17] MEDS: Multiple Vitamins Tab PO SCH (09:05)
[2018-04-17] MEDS: Naphazoline-Pheniramine Ophth Soln OP SCH (09:06)
[2018-04-17 11:14] VITALS: RESP 20; TEMP 98.5; O2SAT 98
[2018-04-17 11:15] VITALS: BP 176/85; PULSE 80
--- NOTE | 2018-04-17 11:34 | CP.PCM.PN ---
Subjective - Date & Time of Evaluation Date of Evaluation: 04/17/18 Time of Evaluation: 09:00 - Subjective Subjective: Medicine Note for Hospitalist Service- Dr. Helton Patient was seen and examined at bedside. Blood pressure remains 160s/80s. Will recommend to continue current regimen. Patient denies chest pain, dyspnea, abdominal pain, nausea, vomiting, fevers, headaches, dysuria. Objective - Vital Signs/Intake and Output Vital Signs (last 24 hours): Temp Pulse Resp BP Pulse Ox 98.5 F 80 20 176/85 H 98 04/17/18 09:00 04/17/18 10:30 04/17/18 09:00 04/17/18 10:30 04/17/18 09:00 - Medications Medications: Current Medications Amlodipine Besylate (Norvasc) 10 mg PO DAILY [facility] Last Admin: 04/17/18 09:06 Dose: 10 mg Aspirin (Ecotrin) 81 mg PO DAILY [facility] Last Admin: 04/17/18 09:05 Dose: 81 mg Chlordiazepoxide (Librium) 25 mg PO Q4H PRN PRN Reason: Alcohol Withdrawal Chlorthalidone (Hygroton) 25 mg PO DAILY [facility] Last Admin: 04/17/18 09:10 Dose: 25 mg Clonidine HCl (Catapres) 0.1 mg PO Q8 PRN PRN Reason: COWS Score More or Equal to 5 Last Admin: 04/15/18 16:09 Dose: 0.1 mg Ergocalciferol (Drisdol 50,000 Intl Units Cap) 1 cap PO Q7D [facility] Last Admin: 04/13/18 13:03 Dose: 1 cap Folic Acid (Folic Acid) 1 mg PO DAILY [facility] Last Admin: 04/17/18 09:05 Dose: 1 mg Gabapentin (Neurontin) 300 mg PO BID [facility] Last Admin: 04/17/18 09:06 Dose: 300 mg Hydralazine HCl (Apresoline) 25 mg PO Q8 [facility] Last Admin: 04/17/18 06:30 Dose: 25 mg Hydroxyzine HCl (Atarax) 25 mg PO Q6H PRN PRN Reason: Anxiety Last Admin: 04/16/18 21:21 Dose: 25 mg Ibuprofen (Motrin Tab) 600 mg PO Q6H PRN PRN Reason: Pain, moderate (4-7) Lisinopril (Zestril) 40 mg PO DAILY [facility] Last Admin: 04/17/18 09:08 Dose: 40 mg Loperamide HCl (Imodium) 2 mg PO Q8 PRN PRN Reason: Diarrhea Multivitamins (Hexavitamin) 1 tab PO DAILY [facility] Last Admin: 04/17/18 09:05 Dose: 1 tab Naphazoline HCl/Pheniramine Maleate (Naphcon-A Opht) 0 ml OP TID [facility] Last Admin: 04/17/18 09:06 Dose: 1 drop Nicotine (Nicoderm Cq) 1 patch TD DAILY [facility] Last Admin: 04/17/18 09:06 Dose: Not Given Ondansetron HCl (Zofran Tab) 4 mg PO Q8 PRN PRN Reason: Nausea/Vomiting Rosuvastatin Calcium (Crestor) 5 mg PO HS [facility] Last Admin: 04/16/18 21:21 Dose: 5 mg Thiamine HCl (Vitamin B1 Tab) 100 mg PO DAILY [facility] Last Admin: 04/17/18 09:07 Dose: 100 mg Trazodone HCl (Desyrel) 50 mg PO HS PRN PRN Reason: Insomnia Last Admin: 04/16/18 23:02 Dose: 50 mg Vitamin A (Vitamin A & D Oint Ud Foilpak) 1 ea TOP BID PRN PRN Reason: Dry skin Last Admin: 04/14/18 13:18 Dose: 1 ea - Labs Labs: 04/11/18 18:27 04/11/18 18:27 - Additional Findings Additional findings: - Constitutional Appears: No Acute Distress - Head Exam Head Exam: ATRAUMATIC, NORMOCEPHALIC - Eye Exam Eye Exam: EOMI - ENT Exam ENT Exam: Mucous Membranes Moist - Respiratory Exam Respiratory Exam: Clear to Ausculation Bilateral, NORMAL BREATHING PATTERN. absent: Rales, Rhonchi, Wheezes - Cardiovascular Exam Cardiovascular Exam: REGULAR RHYTHM, +S1, +S2 - GI/Abdominal Exam GI & Abdominal Exam: Soft, Normal Bowel Sounds. absent: Distended, Tenderness - Extremities Exam Extremities Exam: Normal Inspection - Neurological Exam Neurological Exam: Alert, Awake, Oriented x3 - Psychiatric Exam Psychiatric exam: Normal Mood - Skin Skin Exam: Dry, Intact, Normal Color, Warm Assessment and Plan - Assessment and Plan (Free Text) Plan: Hypertension Improving EKG- sinus rhythm w/ occasional PVCs and PACs; anterior infarct age undetermined Amlodipine 10mg PO daily Lisinopril 40mg PO daily Hydralazine 25mg PO TID [increased from 10mg TID on 04/13/18] Chlorthalidone 25mg PO Q4h prn (started on 04/14/[address] Smith) Continue to monitor vitals Hx CVA Aspirin 81mg PO daily Crestor 5mg PO HS CKD, proteinuria Nephrology consulted, Dr. Smith, help appreciated Bladder US: normal Per nephrology, patient encouraged to have outpatient renal biopsy and further workup. Detox Per Detox/psychiatry Vitamin D Deficiency Vit D <12.8 Ergocalciferol 50,000u q7days (started on 04/13/18) Constipation Likely secondary to withdrawal Miralax, Dulcolax and milk of magnesia, increased hydration and prune juice. s/p bowel movement Disposition: Medicine Team will be signing off. Patient's blood pressure is starting to become controlled. Will continue with current regimen, monitor blood pressure, and follow up with Dr. Smith as outpatient. Thank you for this consult. Snaia Perdomo Dr., DO, PGY-1
== END 2018-04-17 12:27 | disposition home or self-care (01) | DRG 744 ==
LOC: C.ER 17:55 → C.7D 21:10
PROVIDERS: ADMIT Psychiatry & Neurology Psychiatry; ATTEND Psychiatry & Neurology Psychiatry
PROC: HZ2ZZZZ Detoxification Services for Substance Abuse Treatment (ICD-10-PCS; principal; 2018-04-11)
PROC: HZ46ZZZ Group Counseling for Substance Abuse Treatment, Psychoeducation (ICD-10-PCS; 2018-04-11)
DX: F11.23 Opioid dependence with withdrawal (principal); E11.21 Type 2 diabetes mellitus with diabetic nephropathy; E11.22 Type 2 diabetes mellitus with diabetic chronic kidney disease; N18.3 Chronic kidney disease, stage 3 (moderate); E11.40 Type 2 diabetes mellitus with diabetic neuropathy, unspecified; F10.239 Alcohol dependence with withdrawal, unspecified; F14.10 Cocaine abuse, uncomplicated; F17.210 Nicotine dependence, cigarettes, uncomplicated; E55.9 Vitamin D deficiency, unspecified; I12.9 Hypertensive chronic kidney disease with stage 1 through stage 4 chronic kidney disease, or unspecified chronic kidney disease; I25.10 Atherosclerotic heart disease of native coronary artery without angina pectoris; Z86.73 Personal history of transient ischemic attack (TIA), and cerebral infarction without residual deficits; Z79.899 Other long term (current) drug therapy; Z79.82 Long term (current) use of aspirin; I16.0 Hypertensive urgency

== ENCOUNTER 2018-06-26 21:32 | Inpatient (IN) | payer MEDICAID ==
[2018-06-26 22:39] LABS: SQUAMOUS EPITHIAL 1 /hpf (0-5); URINE BACTERIA RARE (<OCC); URINE BILIRUBIN NEGATIVE (NEGATIVE); URINE BLOOD NEGATIVE (NEGATIVE); URINE CLARITY Hazy (Clear); URINE COLOR Yellow (YELLOW); URINE GLUCOSE (UA) 3+ mg/dL (Normal); URINE LEUKOCYTE ESTERASE 3+ Leu/uL (Negative); URINE PROTEIN 3+ mg/dL (NEGATIVE); URINE UROBILINOGEN NORMAL mg/dL (0.2-1.0)
[2018-06-26 22:59] LABS: BARBITURATES, UR NEGATIVE (NEGATIVE); BENZODIAZEPINES, UR NEGATIVE (NEGATIVE); PHENCYCLIDINE, UR NEGATIVE (NEGATIVE)
[2018-06-26 23:07] LABS: OPIATES, UR POSITIVE (NEGATIVE)
[2018-06-26 23:14] LABS: BASO # 0.1 K/uL (0.0-0.2); BASO % 0.6 % (0.0-2.0); EOS # 0.3 K/uL (0.0-0.7); HEMOGLOBIN 14.2 g/dL (11.0-16.0); LYMPH # 1.4 K/uL (1.0-4.3); LYMPH % 16.4 % (20.0-40.0); MEAN CELL VOLUME 92.4 fL (81.0-99.0); MEAN CORPUSCULAR HEMOGLOBIN 31.4 pg (27.0-31.0); MEAN PLATELET VOLUME 10.6 fL (7.2-11.7); MONO # 0.5 K/uL (0.0-0.8); MONO % 5.7 % (0.0-10.0); NEUT # 6.4 K/uL (1.8-7.0); NEUT % 74.3 % (50.0-75.0); RBC 4.52 Mil/uL (3.80-5.20); WHITE BLOOD COUNT 8.6 K/uL (4.8-10.8)
[2018-06-26 23:27] LABS: ALB/GLOB RATIO 1.5 (1.0-2.1); ALBUMIN 4.3 g/dL (3.5-5.0); CALCIUM 9.6 mg/dl (8.6-10.4)
--- NOTE | 2018-06-27 01:11 | C.PDOC ---
History Of Present Illness 57 year old female presents to the ER as a prescreen for heroin detox. Denies physical complaints at this time. Time Seen by Provider: 06/26/18 22:26 Chief Complaint (Nursing): Substance Abuse History Per: Patient History/Exam Limitations: no limitations Onset/Duration Of Symptoms: Days Current Symptoms Are (Timing): Still Present Suicide/Self Injury Attempted (Context): None Associated Symptoms: denies: Depression, Suicidal Thoughts Involuntary Hold By: None Recent travel outside of the [place]: No Past Medical History Reviewed: Historical Data, Nursing Documentation, Vital Signs Vital Signs: Last Vital Signs Temp 97.4 F L 06/27/18 01:59 Pulse 62 06/27/18 01:59 Resp 18 06/27/18 01:59 BP 164/75 H 06/27/18 01:59 Pulse Ox 96 06/27/18 01:59 - Medical History PMH: Diabetes, HTN Denies: Hepatitis, HIV, Seizures, Sexually Transmitted Disease - [facility] Procedures DETOXIFICATION SERVICES FOR SUBSTANCE ABUSE TREATMENT (04/11/18) GROUP WET CROWN BLOCKING OPERATOR FOR SUBSTANCE ABUSE TREATMENT, PSYCHOEDUCATION (04/11/18) INDIV PSYCHOTHERAPY FOR SUBSTANCE ABUSE TREATMENT, SUPPORT (12/22/17) INDIV PSYCHOTHERAPY FOR SUBSTANCE ABUSE, COGNITIV BEHAVIORAL (12/22/17) INDIV PSYCHOTHERAPY FOR SUBSTANCE ABUSE, PSYCHOEDUCATION (12/22/17) INDIVIDUAL PSYCHOTHERAPY, SUPPORTIVE (05/12/17) PHARMACOTHERAPY FOR SUBSTANCE ABUSE, METHADONE MAINT (12/22/17) Family History: States: Unknown Family Hx - Social History Hx Alcohol Use: No Hx Substance Use: Yes - Immunization History Hx Influenza Vaccination: No Review Of Systems Constitutional: Negative for: Fever, Chills Cardiovascular: Negative for: Chest Pain, Palpitations Respiratory: Negative for: Cough, Shortness of Breath Gastrointestinal: Negative for: Nausea, Vomiting Physical Exam - Physical Exam Appears: Non-toxic Skin: Normal Color, Warm, Dry Head: Atraumatic, Normacephalic Eye(s): bilateral: Other (Pin point pupils, stable right lateral strabismus) Oral Mucosa: Moist Chest: Symmetrical, No Tenderness Cardiovascular: Rhythm Regular Respiratory: Normal Breath Sounds, No Rales, No Rhonchi, No Wheezing Gastrointestinal/Abdominal: Soft, No Tenderness Neurological/Psych: Oriented x3, Normal Speech ED Course And Treatment - Laboratory Results Result Diagrams: 06/26/18 23:09 06/26/18 23:09 Lab Interpretation: Abnormal (UA 79 wbc's, tox + cocaine, opiates, etoh 34) O2 Sat by Pulse Oximetry: 97 (Room air) Pulse Ox Interpretation: Normal Reevaluation Time: 01:37 Reassessment Condition: Improved - Physician Consult Information Outcome Of Conversation: 0130: d/w Crisis, ok to adm to Detox Medical Decision Making Medical Decision Making: UA 79 wbc's, asymptomatic, defer tx Disposition Doctor Will See Patient In The: Hospital Counseled Patient/Family Regarding: Studies Performed, Diagnosis - Disposition Disposition: HOSPITALIZED Disposition Time: 01:38 Condition: GOOD - Clinical Impression Clinical Impression: Polysubstance abuse, Opioid use disorder, severe, dependence - Scribe Statement The provider has reviewed the documentation as recorded by the Scribyissel Alonso All medical record entries made by the Scribe were at my direction and personally dictated by me. I have reviewed the chart and agree that the record accurately reflects my personal performance of the history, physical exam, medical decision making, and the department course for this patient. I have also personally directed, reviewed, and agree with the discharge instructions and disposition.
--- NOTE | 2018-06-27 03:24 | PCM.BM ---
<Daniela Parada - Last Filed: 06/27/18 03:23> Treatment Plan Problems - Problems identified on initial assessmt Opiate dependence Date Initiated: 06/27/18 Time Initiated: 03:00 Assessment reference: NA Status: Active Treatment assets and liabiliti Patient Assests: cooperative, ADL independent, good support system, negotiates basic needs, cognitively intact Patient Liabilities: substance abuse, medical problems - Milieu Protocol Maintain good personal hygiene: daily Encourage regular showers, daily Remind patient to perform daily oral care, daily Assist patient to perform ADL's Maintain personal safety: every shift Educate patient to report safety concerns to staff, every shift Monitor environment for contraband/sharps Medication safety: Monitor for expected outcome, potential side effects: every shift, Assess barriers to learning: every shift, Assess readiness for medication education: every shift <Micky Garrison - Last Filed: 06/29/18 23:20> - Diagnosis (1) Opioid use disorder, severe, dependence Status: Acute Interventions: 06/29/18 23:20 * Assess 7x/week regarding severity of withdrawal * Educate regarding risks, benefits, side effects and alternatives of medications * Use Motivational Interviewing for abstinence * Use CBT for relapse prevention * Medication management for withdrawal symptoms * Encourage medication assisted treatment * <Chelly Santo - Last Filed: 07/01/18 10:52> Family Contact Family involvement: Andreea/SO not involved - Goals for Treatment Patient goals for treatment: Complete detox and move to family home in [place]. Discharge/Continuing Care - Education Needs Education Needs: Family Medication, Family Diagnosis/Disease Process, Family Placement options, Family Community resources, Patient Medication, Patient Diagnosis/Disease Process, Patient Coping Skills, Patient Anger Management skills, Patient Placement options, Patient Community resources - Discharge Discharge Criteria: No longer exhibiting s/s of withdrawal, Reduction of target symptoms Discharge to:: Home, With Family - Treatment Team Participation Patient/Family/SO Statement: 07/01/18 10:51 "I wanna move to [place] with my daughter to my other daughter's house. I' ll be better there..." Discussed with Family/SO: No Was Patient/Family/SO present at Treatment Team Meeting: Yes
[2018-06-27] MEDS ORDERED: Aluminum Hydroxide/Magnesium Hydroxide Susp (30 mL) PO PRN (11:04)
--- NOTE | 2018-06-27 11:04 | PCM.PSYCH ---
Initial Psychiatric Evaluation - Initial Psychiatric Evaluation Type of Admission: Voluntary Legal Status: Capacity Chief Complaint (in patient's own words): I need help.' History of Present Illness and Precipitating Events: Patient is a 57 year old S AAF, who came to ED to get help in heroin and cocaine detox. Patient reports of using about 6-8 bags of heroin daily and smokes about 6-8 bottles of crack daily along with drinking about 1-2 beers. Patient further stated that her last use was yesterday. Pt denies any past history of any inpatient psychiatric hospitalizations and denies any history of follow up with any psychiatrist. She reports history of few detoxes in the past, last one was at [facility], 2 months ago. Patient reports irritability but denies any feelings of hopelessness and helplessness. She denies any manic symptoms. She denies any auditory of visual hallucinations or any paranoia. Patient reports of withdrawal symptoms including abdominal cramps, anxiety, headaches and sweating. PMH: HTN, DM Current Medications: Active Medications Generic Name Dose Route Start Last Admin Trade Name Freq PRN Reason Stop Dose Admin Clonidine HCl 0.1 mg 06/27/18 04:47 Catapres PO Q6 PRN opiate withdrawal Hydroxyzine HCl 25 mg 06/27/18 04:48 Atarax PO Q6 PRN Anxiety Pneumococcal Polyvalent Vaccine 0.5 ml 06/30/18 10:00 Pneumovax 23 Vaccine IM 06/30/18 10:01 .ONCE ONE Past Psychiatric History - Past Psychiatric History Previous Treatment History: Inpatient Pertinent Medical Hx (Current Medical&Sleep Prob, Allergies): Allergies Allergy/AdvReac Type Severity Reaction Status Date / Time No Known Allergies Allergy Verified 04/11/18 18:04 Aspirin 81 mg PO DAILY #30 05/16/17 amLODIPine [Norvasc] 10 mg PO DAILY #30 tab 05/16/17 Gabapentin [Neurontin] 300 mg PO DAILY 12/22/17 Aspirin [Aspirin Chewable] 81 mg PO DAILY #30 chew 12/27/17 Docusate [Colace] 100 mg PO BID #60 cap 12/27/17 Gabapentin [Neurontin] 300 mg PO TID #90 cap 12/27/17 Lisinopril [Zestril] 20 mg PO DAILY #30 tab 12/27/17 Nitrofurantoin Macrocrystals [Macrobid] 100 mg PO Q12H #4 cap 12/27/17 QUEtiapine [SEROquel] 50 mg PO HS #30 tab 12/27/17 amLODIPine [Norvasc] 10 mg PO DAILY #30 tab 12/27/17 hydroCHLOROthiazide [Microzide] 12.5 mg PO DAILY #30 cap 12/27/17 traZODone [Desyrel] 50 mg PO HS PRN #30 tab 12/27/17 Aspirin [Ecotrin] 81 mg PO DAILY #30 tabec 04/17/18 Chlorthalidone [Hygroton] 25 mg PO DAILY #30 tab 04/17/18 Ergocalciferol [Drisdol 50,000 Intl Units Cap] 1 cap PO Q7D #4 cap 04/17/18 Gabapentin [Neurontin] 300 mg PO BID #60 cap 04/17/18 Lisinopril [Zestril] 40 mg PO DAILY #30 tab 04/17/18 Multivitamins [Hexavitamin] 1 tab PO DAILY #30 tab 04/17/18 amLODIPine [Norvasc] 10 mg PO DAILY #30 tab 04/17/18 hydrALAZINE [Apresoline] 25 mg PO Q8 #90 tab 04/17/18 traZODone [Desyrel] 50 mg PO HS PRN #30 tab 04/17/18 Review of Systems - Review of Systems All systems: reviewed and no additional remarkable complaints except - Psychiatric Psychiatric: Anxiety, Irritability. absent: Auditory Hallucinations, Suicidal Ideation Mental Status Examination - Personal Presentation Personal Presentation: Looks stated age - Affect Affect: Constricted - Motor Activity Motor Activity: Calm - Reliability in Providing Information Reliability in Providing Information: Good - Speech Speech: Organized - Mood Mood: Anxious - Formal Thought Process Formal Thought Process: No Impairment - Obsessions/Compulsions Obsessions: No Compulsions: No - Cognitive Functions Orientation: Person, Place, Situation, Time Sensorium: Alert Attention/Concentration: Attentive Abstract Thinking: [place] Estimate of Intelligence: Below average Judgement: Imparied, as evidence by: Poor judgement, Intact, as evidence by: Insight regarding need for hospitalization - Risk Risk: Withdrawal, Diminished functioning - Limitations Limitations: Living alone DSM 5 DX - DSM 5 DSM 5 Diagnosis: Opioid use disorder severe Opioid withdrawal Cocaine use disorder severe Alcohol use disorder moderate - Recommended/Plan of Treatment Treatment Recommendations and Plan of Treatment: Opioid use disorder severe Opioid withdrawal Cocaine use disorder severe Alcohol use disorder moderate -CBT -Psychotherapy -Supportive therapy, group therapy, individual therapy -Atarax 25 mg PO Q6 prn -Librum prn -Trazodone 100 mg PO QHS prn -Taper with methadone -Gabapentin for augmentation -As needed medications -All risks, benefits and alternatives of the meds discussed, and the pt agreed and understood.
[2018-06-27] MEDS: Multiple Vitamins Tab PO SCH (11:32)
[2018-06-27] MEDS ORDERED: Ergocalciferol 50,000 Intl Units Cap PO SCH (12:00)
[2018-06-28] MEDS: Multiple Vitamins Tab PO SCH (09:32)
[2018-06-28] MEDS ORDERED: Multiple Vitamins Tab PO SCH (10:00)
--- NOTE | 2018-06-28 16:35 | PCM.PYCHPN ---
Psychiatric Progress Note - Psychiatric Progress Note Patient seen today, length of contact: 15 min Patient Chief Complaint: I m withdrawing.' Problems Identified/Issues Discussed: Patient seen and evaluated, chart reviewed and discussed with the nurse. Pt reports irritability but denies any depressed mood, or any feelings of hopelessness and helplessness. She remained isolated and withdrawn, and confined to her room. She still reports withdrawal symptoms. She denies any AVH or any paranoia. Patient is compliant with medications and denies any side effects. Symptoms are improving but pt needs more time to stabilize. Support and psychoeducation given. Medication Change: Yes Medical Record Reviewed: Yes Mental Status Examination - Cognitive Function Orientation: Person, Place, Situation, Time Memory: Intact Attention: WNL Concentration: Poor Association: WNL Fund of Knowledge: Poor - Mood Mood: Anxious - Affect Affect: Constricted - Speech Speech: Soft - Formal Thought Process Formal Thought Process: No Impairment - Suicidal Ideation Suicidal Ideation: No - Homicidal Ideation Homicidal Ideation: No Goal/Treatment Plan - Goal/Treatment Plan Need for Continued Stay: Severe depression anxiety, Severe functional impairment Progress Toward Problem(s) and Goals/Treatment Plan: Opioid use disorder severe Opioid withdrawal Cocaine use disorder severe Alcohol use disorder moderate -CBT -Psychotherapy -Supportive therapy, group therapy, individual therapy -Atarax 25 mg PO Q6 prn -Librum prn -Trazodone 100 mg PO QHS prn -Taper with methadone -Gabapentin for augmentation -As needed medications -All risks, benefits and alternatives of the meds discussed, and the pt agreed and understood. - Smoking Cessation Smoking Cessation Initiated: No
[2018-06-29] MEDS: Multiple Vitamins Tab PO SCH (09:34)
--- NOTE | 2018-06-29 14:45 | PCM.PYCHPN ---
Psychiatric Progress Note - Psychiatric Progress Note Patient seen today, length of contact: 15 min Patient Chief Complaint: "feel sick" Problems Identified/Issues Discussed: The pt is seen, chart reviewed, case discussed with staff. The pt is compliant with medications and reports no side-effects. Symptoms are improving but needs more time to stabilize. Pt attends groups and activities. Support given, psycho-education provided. After care discussed. Pt says that she plans on moving to [place] to her daughter's house. Medication Change: Yes (detox changes daily) Medical Record Reviewed: Yes Mental Status Examination - Cognitive Function Orientation: Person, Place, Situation, Time Memory: Intact Attention: WNL Concentration: Poor Association: WNL Fund of Knowledge: Poor - Mood Mood: Anxious - Affect Affect: Constricted - Speech Speech: Soft - Formal Thought Process Formal Thought Process: No Impairment - Suicidal Ideation Suicidal Ideation: No - Homicidal Ideation Homicidal Ideation: No Goal/Treatment Plan - Goal/Treatment Plan Need for Continued Stay: Discharge may exacerbated symptoms, Severe functional impairment Progress Toward Problem(s) and Goals/Treatment Plan: Continue medications Support and psychoeducation daily Attend groups and activities daily After care planning by counselors - likely she will refuse as she claims she will move to [place] Podiatry consult- pain and lesions in foot
--- NOTE | 2018-06-29 16:48 | RAD ---
Date of service: 06/29/2018 PROCEDURE: Right Foot Radiographs. HISTORY: right foot pain COMPARISON: None. FINDINGS: BONES: Normal. No fracture. JOINTS: Hammertoe deformities 4th and 5th digits. SOFT TISSUES: Normal. OTHER FINDINGS: None. IMPRESSION: No acute findings related to/accounting for the clinical presentation.
[2018-06-29] MEDS ORDERED: Magnesium Hydroxide Susp 30 ml UD PO SCH (18:00)
[2018-06-29] MEDS: Magnesium Hydroxide Susp 30 ml UD PO SCH (19:51)
[2018-06-30] MEDS: Multiple Vitamins Tab PO SCH (09:35)
[2018-06-30] MEDS: Magnesium Hydroxide Susp 30 ml UD PO SCH ×2 (09:40→17:14)
[2018-06-30] MEDS ORDERED: Pneumococcal 23-Valent Vaccine IM ONE (10:00)
--- NOTE | 2018-06-30 11:13 | CP.PCM.CON ---
History of Present Illness - History of Present Illness History of Present Illness: 57 y/o female with PMHx of HTN and DM seen at bedside for bilateral foot pain, R >L. Pt states she has calluses that form underneath the feet and get very painful. Says it is very uncomfortable to walk and she tries to shave them down herself with a razor blade. She also complains of thickened painful toenails. States she used to see a building repair maintenance supervisor many years ago but has not gone in awhile. She also states that she gets cramping and pain in her legs whenever she walks. States she has to rest even after walking 1-2 blocks. States the cramps go all the way from her toes up to the thighs. Admits that she has been a cigarette smoker for many years, stating she smokes about a pack per week. Admits to a previous diagnosis of diabetic neuropathy, stating she gets tingling and numbness in the feet. Denies F/C/N/V/CP/SOB PMHx: DM, HTN PSH: denies SocHx: 1 pack cigarettes/week; social EtOH; heroin drug use All: NKDA Review of Systems - Review of Systems All systems: reviewed and no additional remarkable complaints except (per HPI) Past Patient History - Infectious Disease Hx of Infectious Diseases: None - Past Medical History & Family History Past Medical History?: Yes - Past Social History Smoking Status: Light Smoker < 10 Cigarettes Daily - CARDIAC Hx Hypertension: Yes - PULMONARY Hx Tuberculosis: No - NEUROLOGICAL Hx Seizures: No - ENDOCRINE/METABOLIC Hx Diabetes Mellitus Type 2: Yes - HEMATOLOGICAL/ONCOLOGICAL Hx Human Immunodeficiency Virus (HIV): No - MUSCULOSKELETAL/RHEUMATOLOGICAL Hx Falls: No - GENITOURINARY/GYNECOLOGICAL Hx Sexually Transmitted Disorders: No - PSYCHIATRIC Hx Substance Use: Yes - SURGICAL HISTORY Hx Surgeries: No - ANESTHESIA Hx Anesthesia: No Meds Allergies/Adverse Reactions: Allergies Allergy/AdvReac Type Severity Reaction Status Date / Time No Known Allergies Allergy Verified 04/11/18 18:04 - Medications Medications: Current Medications Al Hydrox/Mg Hydrox/Simethicone (Maalox 30 Ml) 30 ml PO TID PRN PRN Reason: Indigestion / Heartburn Amlodipine Besylate (Norvasc) 10 mg PO DAILY [facility] Last Admin: 06/30/18 09:35 Dose: 10 mg Aspirin (Aspirin Chewable) 81 mg PO DAILY [facility] Last Admin: 06/30/18 09:35 Dose: 81 mg Chlordiazepoxide (Librium) 25 mg PO Q4H PRN PRN Reason: Alcohol Withdrawal Last Admin: 06/29/18 17:09 Dose: 25 mg Clonidine HCl (Catapres) 0.1 mg PO Q6 PRN PRN Reason: opiate withdrawal Last Admin: 06/29/18 17:10 Dose: 0.1 mg Docusate Sodium (Colace) 100 mg PO BID [facility] Last Admin: 06/30/18 09:35 Dose: 100 mg Ergocalciferol (Drisdol 50,000 Intl Units Cap) 1 cap PO Q7D [facility] Last Admin: 06/27/18 12:39 Dose: 1 cap Folic Acid (Folic Acid) 1 mg PO DAILY [facility] Last Admin: 06/30/18 09:35 Dose: 1 mg Gabapentin (Neurontin) 300 mg PO TID [facility] Last Admin: 06/30/18 09:35 Dose: 300 mg Hydralazine HCl (Apresoline) 25 mg PO Q8 [facility] Last Admin: 06/30/18 06:36 Dose: 25 mg Hydroxyzine HCl (Atarax) 25 mg PO Q6 PRN PRN Reason: Anxiety Ibuprofen (Motrin Tab) 600 mg PO Q8H PRN PRN Reason: Pain, moderate (4-7) Last Admin: 06/28/18 23:00 Dose: 600 mg Loperamide HCl (Imodium) 2 mg PO Q8 PRN PRN Reason: Diarrhea Magnesium Hydroxide (Milk Of Magnesia) 30 ml PO BID [facility] Last Admin: 06/30/18 09:40 Dose: 30 ml Methadone HCl (Methadone) 10 mg PO DAILY [facility] PRN Reason: Taper Stop: 07/02/18 09:59 Last Admin: 06/30/18 09:35 Dose: 10 mg Multivitamins (Hexavitamin) 1 tab PO DAILY [facility] Last Admin: 06/30/18 09:35 Dose: 1 tab Nicotine (Nicoderm Cq) 1 patch TD DAILY [facility] Last Admin: 06/30/18 09:35 Dose: 1 patch Ondansetron HCl (Zofran Tab) 4 mg PO Q8 PRN PRN Reason: Nausea/Vomiting Pseudoephedrine HCl (Sudafed Tab) 60 mg PO QID PRN PRN Reason: Nasal/Sinus Congestion Thiamine HCl (Vitamin B1 Tab) 100 mg PO DAILY [facility] Last Admin: 06/30/18 09:35 Dose: 100 mg Trazodone HCl (Desyrel) 50 mg PO HS PRN PRN Reason: Insomnia Last Admin: 06/29/18 22:40 Dose: 50 mg Physical Exam - Constitutional Appears: Well, Non-toxic, No Acute Distress - Extremities Exam Additional comments: LE focused exam: Vasc: DP/PT pulses 1/4 B/L. Temperature gradient warm to cool B/L. CFT <4 sec to all digits. No pedal edema Derm: Hyperkeratotic lesions sub met 4 B/L. Preulcerative lesion noted with hyperkeratotic skin formation at distal tip of R foot 2nd digit. Thickened dystrophic toenails x 10. No open lesions, no erythema, no ecchymosis Neuro: protective sensation slightly diminished Ortho: Tenderness to palpation sub met 4 B/L. Hammertoe contracture noted to right foot 2nd and 3rd digits. Flexible hammertoes noted to L foot 2-4 digits. - Neurological Exam Neurological exam: Alert, Oriented x3 - Psychiatric Exam Psychiatric exam: Normal Affect, Normal Mood Results - Vital Signs Recent Vital Signs: Last Vital Signs Temp 98.8 F 06/30/18 10:21 Pulse 50 L 06/30/18 10:21 Resp 18 06/30/18 10:21 BP 171/74 H 06/30/18 10:21 Pulse Ox 97 06/30/18 10:21 - Labs Result Diagrams: 06/26/18 23:09 06/26/18 23:09 Assessment & Plan - Assessment and Plan (Free Text) Assessment: 57 y/o diabetic female with 1) right foot 2nd digit preulcerative lesion and 2) intermittent claudication likely secondary to peripheral vascular disease and 3 ) painful metatarsalgia Plan: Pt seen and evaluated at bedside Discussed with attending Dr. Hair Aseptic debridement of hyperkeratotic lesions with sterile 15 blade Pt tolerated well without incident Arterial duplex studies ordered to evaluate LE circulation Ammonium lactate cream ordered, to be applied BID to feet Thank you for this consult
--- NOTE | 2018-06-30 13:18 | PCM.PYCHPN ---
Psychiatric Progress Note - Psychiatric Progress Note Patient seen today, length of contact: 15 min Patient Chief Complaint: "I was sick last night" Problems Identified/Issues Discussed: The pt is seen, chart reviewed, case discussed with staff. The pt is compliant with medications and reports no side-effects. Symptoms are improving but needs more time to stabilize. Pt attends groups and activities. Support given, psycho-education provided. After care discussed. Medication Change: Yes (detox changes daily) Medical Record Reviewed: Yes Mental Status Examination - Cognitive Function Orientation: Person, Place, Situation, Time Memory: Intact Attention: WNL Concentration: Poor Association: WNL Fund of Knowledge: Poor - Mood Mood: Anxious - Affect Affect: Constricted - Speech Speech: Soft - Formal Thought Process Formal Thought Process: No Impairment - Suicidal Ideation Suicidal Ideation: No - Homicidal Ideation Homicidal Ideation: No Goal/Treatment Plan - Goal/Treatment Plan Need for Continued Stay: Discharge may exacerbated symptoms, Severe functional impairment Progress Toward Problem(s) and Goals/Treatment Plan: Continue medications Support and psychoeducation daily Attend groups and activities daily After care planning by counselors - likely she will refuse as she claims she will move to [place] Podiatry consult- pain and lesions in foot
[2018-06-30] MEDS: Ammonium Lactate 12% Lotion (225 g) EXT SCH (17:16)
[2018-07-01 06:09] VITALS: RESP 18
[2018-07-01] MEDS: Multiple Vitamins Tab PO SCH (10:17)
[2018-07-01] MEDS: Magnesium Hydroxide Susp 30 ml UD PO SCH (10:18)
[2018-07-01] MEDS: Ammonium Lactate 12% Lotion (225 g) EXT SCH (10:19)
--- NOTE | 2018-07-01 10:41 | PCM.PYCHDC ---
Mental Status Examination - Mental Status Examination Orientation: Person Discharge Summary - Discharge Note Consultations:: List each consultation separately and include: 1. Reason for request. 2. Findings. 3. Follow-up Summary of Hospital Course include:: 1. Description of specific treatment plan utilized for patients during their course of treatmen. 2. Summarize the time- course for resolution of acute symptoms and/or regressed behaviors. 3. Describe issues identified and worked on during hospitalization. 4. Describe medication utilized. 5. Describe medical problems identified and treated. 6. Reassessment of suicide risk - Diagnosis (1) Opioid use disorder, severe, dependence Current Visit: Yes Status: Acute - Final Diagnosis (DSM 5) Condition upon Discharge: GOOD Disposition: HOME/ ROUTINE Follow-up Treatment Plan: Continue medications Support and psychoeducation daily Attend groups and activities daily After care planning by counselors - likely she will refuse as she claims she will move to [place] Podiatry consult- pain and lesions in foot Prescriptions/Medication Reconciliation: amLODIPine [Norvasc] 10 mg PO DAILY #30 tab Aspirin 81 mg PO DAILY #30 tab.chew Gabapentin [Neurontin] 300 mg PO TID #90 cap hydrALAZINE [Apresoline] 25 mg PO Q8 #90 tab traZODone [Desyrel] 50 mg PO HS PRN #30 tab PRN Reason: Insomnia
[2018-07-01 11:42] VITALS: BP 183/76; PULSE 76; TEMP 98; O2SAT 99
--- NOTE | 2018-07-01 15:12 | VASCLAB ---
Date of service: 07/01/2018 STUDY DESCRIPTION: HISTORY: LE claudication, diabetic smoker PRIORS: None. TECHNIQUE: Pulse volume recording waveforms and segmental pressures of bilateral lower extremities at multiple levels were obtained. Ankle Brachial Indices (ABIs) were calculated. Report prepared by Dionicio Glover, BS, RVT RIGHT LOWER EXTREMITY: * Brachial artery: Pressure - 220 mmHg. * High thigh: Pressure - 220 mmHg: Ratio - NC: PVR waveform - Pulsatile * Low thigh: Pressure - 108 mmHg: Ratio - NC PVR waveform: Reduced * Calf: Pressure - 106 mmHg: Ratio - NC PVR waveform: Reduced * Posterior tibial Artery: Pressure - 101 mmHg: Ratio - NC PVR waveform: Reduced * Dorsalis pedis Artery: Pressure - 82 mmHg: Ratio - NC PVR waveform: Reduced * Great toe: Pressure - mmHg: Ratio - PVR waveform: Ankle brachial index (ELMA): NC LEFT LOWER EXTREMITY: * Brachial artery: Pressure - 220 mmHg. * High thigh: Pressure - 220 mmHg: Ratio - NC: PVR waveform - Pulsatile * Low thigh: Pressure - 220 mmHg: Ratio - NC PVR waveform: Pulsatile * Calf: Pressure - 220 mmHg: Ratio - NC PVR waveform: Pulsatile * Posterior tibial Artery: Pressure - 200 mmHg: Ratio - NC PVR waveform: Pulsatile * Dorsalis pedis Artery: Pressure - 198 mmHg: Ratio - NC PVR waveform: Pulsatile * Great toe: Pressure - mmHg: Ratio - PVR waveform: Ankle brachial index (ELMA): NC OTHER FINDINGS: High systemic blood pressure renders this test less accurate. Repeat testing is recommended after control of hypertension. IMPRESSION: Right: The ankle pressure index of the right lower extremity is non-diagnostic due to possible arterial wall calcifications. However, pulse volume recording waveforms are suggestive of superficial femoral, popliteal and tibial artery level diseases. Left: The ankle pressure index of the left lower extremity is non-diagnostic due to possible arterial wall calcifications.
== END 2018-07-01 12:30 | disposition home or self-care (01) | DRG 895 ==
LOC: C.ER 21:32 → C.7D 06-27 01:38
PROVIDERS: ADMIT Psychiatry & Neurology Psychiatry; ATTEND Psychiatry & Neurology Psychiatry
PROC: HZ2ZZZZ Detoxification Services for Substance Abuse Treatment (ICD-10-PCS; principal; 2018-06-27)
PROC: HZ52ZZZ Individual Psychotherapy for Substance Abuse Treatment, Cognitive-Behavioral (ICD-10-PCS; 2018-06-27)
PROC: HZ59ZZZ Individual Psychotherapy for Substance Abuse Treatment, Supportive (ICD-10-PCS; 2018-06-27)
PROC: HZ56ZZZ Individual Psychotherapy for Substance Abuse Treatment, Psychoeducation (ICD-10-PCS; 2018-06-27)
PROC: HZ42ZZZ Group Counseling for Substance Abuse Treatment, Cognitive-Behavioral (ICD-10-PCS; 2018-06-27)
PROC: HZ46ZZZ Group Counseling for Substance Abuse Treatment, Psychoeducation (ICD-10-PCS; 2018-06-27)
PROC: GZHZZZZ Group Psychotherapy (ICD-10-PCS; 2018-06-27)
PROC: GZ58ZZZ Individual Psychotherapy, Cognitive-Behavioral (ICD-10-PCS; 2018-06-27)
PROC: GZ56ZZZ Individual Psychotherapy, Supportive (ICD-10-PCS; 2018-06-27)
DX: F11.23 Opioid dependence with withdrawal (principal); F14.20 Cocaine dependence, uncomplicated; F10.20 Alcohol dependence, uncomplicated; E11.40 Type 2 diabetes mellitus with diabetic neuropathy, unspecified; E11.51 Type 2 diabetes mellitus with diabetic peripheral angiopathy without gangrene; Y90.9 Presence of alcohol in blood, level not specified; F17.210 Nicotine dependence, cigarettes, uncomplicated; F41.9 Anxiety disorder, unspecified; I10 Essential (primary) hypertension; M77.40 Metatarsalgia, unspecified foot

== ENCOUNTER 2019-03-16 19:36 | Inpatient (IN) | payer MEDICAID, OTHER ==
[2019-03-16] MEDS ORDERED: Aspirin 325 mg EC Tablets PO STA (20:36)
[2019-03-16] MEDS ORDERED: Aspirin 325 mg EC Tablets PO ONE (20:53)
[2019-03-16 21:13] LABS: BASO # 0.1 K/uL (0.0-0.2); EOS # 0.3 K/uL (0.0-0.7); EOS % 4.9 % (0.0-4.0); HEMOGLOBIN 14.6 g/dL (11.0-16.0); LYMPH # 0.9 K/uL (1.0-4.3); LYMPH % 15.5 % (20.0-40.0); MEAN CELL VOLUME 95.8 fL (81.0-99.0); MEAN CORPUSCULAR HEMOGLOBIN 30.8 pg (27.0-31.0); MEAN CORPUSCULAR HGB CONC 32.1 g/dL (33.0-37.0); MEAN PLATELET VOLUME 9.9 fL (7.2-11.7); MONO # 0.4 K/uL (0.0-0.8); MONO % 6.6 % (0.0-10.0); NEUT # 4.2 K/uL (1.8-7.0); RBC 4.74 Mil/uL (3.80-5.20); RED CELL DISTRIBUTION WIDTH 15.6 % (11.5-14.5); WHITE BLOOD COUNT 5.9 K/uL (4.8-10.8)
[2019-03-16 21:25] LABS: INR 1.1; PROTHROMBIN TIME 12.2 SECONDS (9.7-12.2)
[2019-03-16 21:26] LABS: ALB/GLOB RATIO 1.2 (1.0-2.1); ALBUMIN 3.6 g/dL (3.5-5.0); ALT/SGPT 27 U/L (9-52); AST/SGOT 35 U/L (14-36); BLOOD UREA NITROGEN 28 mg/dL (7-17); CALCIUM 9.2 mg/dl (8.6-10.4); GFR NON-AFRICAN AMERICAN 19
--- NOTE | 2019-03-16 21:29 | C.PDOC ---
History Of Present Illness Patient is a 58 year old female, with a PMHx of alcohol and heroin abuse, who presents to the ED c/o increasing leg edema, dyspnea on exertion, and abdominal girth. Patient has no history of congestive heart failure. She admits to pe rsistent alcohol use daily and sniffing 5 bags of heroin daily. She has had several failed attempts at rehab. Patient denies any fever, CP, nausea, vomiting. 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 due to deteriorating health Time Seen by Provider: 03/16/19 20:28 Chief Complaint (Nursing): Lower Extremity Problem/Injury History Per: Patient History/Exam Limitations: no limitations Current Symptoms Are (Timing): Still Present Past Medical History Reviewed: Historical Data, Nursing Documentation, Vital Signs Vital Signs: Last Vital Signs Temp 98.6 F 03/16/19 20:01 Pulse 89 03/16/19 20:01 Resp 18 03/16/19 20:01 BP 196/122 H 03/16/19 20:01 Pulse Ox 98 03/16/19 20:01 - Medical History PMH: Diabetes, HTN Denies: Hepatitis, HIV, Seizures, Sexually Transmitted Disease Surgical History: No Surg Hx - [facility] DETOXIFICATION SERVICES FOR SUBSTANCE ABUSE TREATMENT (06/27/18) GROUP ENVIRONMENTAL AIDE FOR SUBSTANCE ABUSE TREATMENT, PSYCHOEDUCATION (06/27/18) GROUP ENVIRONMENTAL AIDE FOR SUBSTANCE ABUSE, COGNITIVE BEHAVIORAL (06/27/18) GROUP PSYCHOTHERAPY (06/27/18) INDIV PSYCHOTHERAPY FOR SUBSTANCE ABUSE TREATMENT, SUPPORT (06/27/18) INDIV PSYCHOTHERAPY FOR SUBSTANCE ABUSE, COGNITIV BEHAVIORAL (06/27/18) INDIV PSYCHOTHERAPY FOR SUBSTANCE ABUSE, PSYCHOEDUCATION (06/27/18) INDIVIDUAL PSYCHOTHERAPY, COGNITIVE-BEHAVIORAL (06/27/18) INDIVIDUAL PSYCHOTHERAPY, SUPPORTIVE (06/27/18) PHARMACOTHERAPY FOR SUBSTANCE ABUSE, METHADONE MAINT (12/22/17) Family History: States: Unknown Family Hx - Social History Hx Alcohol Use: Yes Hx Substance Use: Yes - Immunization History Hx Influenza Vaccination: No Hx Pneumococcal Vaccination: No Review Of Systems Constitutional: Negative for: Fever Cardiovascular: Positive for: Edema (leg). Negative for: Chest Pain Respiratory: Positive for: SOB with Excertion Gastrointestinal: Positive for: Other (abdominal girth ). Negative for: Nausea, Vomiting Physical Exam - Physical Exam Appears: Non-toxic, No Acute Distress Skin: Warm, Dry Head: Atraumatic, Normacephalic Eye(s): right: Other (baseline lateral eye strabismus) Oral Mucosa: Moist Neck: Other (JVD) Cardiovascular: Other (heart sound s3) Respiratory: Rales, No Rhonchi, No Wheezing Gastrointestinal/Abdominal: Other (obese without fluid wave ) Extremity: Pedal Edema (symmetrical pitting edema from the knees down of bilateral lower extremities) Neurological/Psych: Oriented x3 ED Course And Treatment - Laboratory Results Result Diagrams: 03/16/19 21:09 03/16/19 21:09 Lab Interpretation: Abnormal (D-DImer 634 H, trop neg, BNP 31, 300, Creat 2.6 elevated) ECG: Interpreted By Me ECG Rhythm: Sinus Rhythm ECG Interpretation: Normal Rate From EC O2 Sat by Pulse Oximetry: 98 (on RA) Pulse Ox Interpretation: Normal - Radiology CXR Interpretation: Yes: Heart Size (cardiomegaly), Other (++ CHF, small L pleural effusion, + fluid in fissures) Reevaluation Time: 22:38 Reassessment Condition: Improved - Physician Consult Information Outcome Of Conversation: [id number]: d/w Dr. Preston- Hospitalist Sales Technician covering self-pay pts, ok to Tele Obs Medical Decision Making Medical Decision Making: Plan: EKG Labs CXR Urinalysis Ecotrin 325mg PO Lasix 20mg IVP Procedure note: Area cleaned with 18 guage to external jugular vein Left eg nurses could not get IV access. One failed attempt right eg. Second attempt successful left eg. CHF: no h/o CHF + Clinical CHF dilated cardiomyopathy per CXR no prior Card Echo available h/o DM (no meds) extensive h/o cigarette, alcohol, cocaine abuse BNP 31,300 H lasix given Consider Card Echo, Cardio Consult continue diuresis follow baseline weight today 167# for objective trending Acute Renal Insuf Creat 2.4 follow w diuresis Elev D-Dimer 634 H ? underlying PE of lower prob Unable to CTA due to Creat 2.4 Lovenox given consider VQ scan in AM Heroine Abuse 5 bags/day many years multiple failed detox/Rehab Consider Suboxone/Methadone therapy Alcohol Abuse peristent daily use Consider [facility] protocol Cigarettes 1/2 ppd nicotine patch Disposition Doctor Will See Patient In The: Hospital Counseled Patient/Family Regarding: Studies Performed, Diagnosis - Disposition Disposition: HOSPITALIZED Disposition Time: 22:43 Condition: FAIR Forms: [facility] (Serbian) - Clinical Impression Clinical Impression: Drug abuse, Alcohol abuse, CHF (congestive heart failure) - Scribe Statement The provider has reviewed the documentation as recorded by the Scribe Jaz Man All medical record entries made by the Scribe were at my direction and personally dictated by me. I have reviewed the chart and agree that the record accurately reflects my personal performance of the history, physical exam, medical decision making, and the department course for this patient. I have also personally directed, reviewed, and agree with the discharge instructions and disposition.
[2019-03-16 21:39] LABS: B-TYPE NATRIURETIC PEPTIDE 31300 pg/mL (0-900)
[2019-03-16] MEDS ORDERED: Enoxaparin 40 mg Syringe SC STA (22:27)
[2019-03-16] MEDS ORDERED: Enoxaparin 80 mg Syringe ONE (22:33)
[2019-03-16 22:47] LABS: SQUAMOUS EPITHIAL 1 /hpf (0-5); URINE BILIRUBIN NEGATIVE (NEGATIVE); URINE BLOOD 1+ (NEGATIVE); URINE CLARITY Clear (Clear); URINE COLOR Straw (YELLOW); URINE GLUCOSE (UA) 1+ mg/dL (Normal); URINE HYALINE CAST 0-2 /lpf (0-2); URINE LEUKOCYTE ESTERASE TRACE Leu/uL (Negative); URINE PROTEIN 2+ mg/dL (NEGATIVE); URINE UROBILINOGEN NORMAL mg/dL (0.2-1.0)
[2019-03-16 22:50] LABS: HCG,QUALITATIVE URINE NEGATIVE (NEGATIVE)
[2019-03-16 23:07] LABS: BARBITURATES, UR NEGATIVE (NEGATIVE); BENZODIAZEPINES, UR NEGATIVE (NEGATIVE); PHENCYCLIDINE, UR NEGATIVE (NEGATIVE)
[2019-03-16 23:11] LABS: OPIATES, UR POSITIVE (NEGATIVE)
[2019-03-17] MEDS ORDERED: Dextrose 50% SYRINGE Inj (50 ml) IV PRN (01:00)
[2019-03-17] MEDS ORDERED: Glucagon Recombinant 1 mg Inj IM PRN (01:00)
--- NOTE | 2019-03-17 01:30 | CP.PCM.HP ---
<Raeann Whittington - Last Filed: 03/17/19 06:27> History of Present Illness - History of Present Illness History of Present Illness: History and physical for Dr. Preston's service CC " swollen legs and abdomen" HPI: Patient is a 58 year old female with history of diabetes, hypertension, chronic kidney disease, heroin and cocaine abuse who presents for a few month history of lower extremity swelling and pain. She states she has had swelling of her feet, going up to her thigh for the past few months, associated with pain and tightness in her legs from the swelling. She states her pain in her legs is a 9/10 constant discomfort from the swelling, which is better when she is not on her feet and worse when she is walking. She states she also feels short of breath, sometimes at rest and when she walks. She states she has to stop when she walks about 2 blocks, sometimes because of the pain in her legs and sometimes because she feels short of breath. She states she does not have to prop herself up at night, states she uses 1 pillow at night, but also admits to waking up feeling short of breath sometimes. She also complains of 3 month history of abdominal distention rated 7/10, constant in nature, with radiation to her sides. She states she has tried changing her diet, without any relief of her distention. She denies nausea, vomiting, diarrhea, but admits to constipation with her last bowel movement 2 days ago. She denies bloody or dark stools. She denies recent travel, sick contacts, weight changes, rash, easy bruising, dysuria, hematuria. She denies fevers, chills, changes in weight, vision or hearing changes. She states she has intermittent headaches, no headache currently. PMD: Dr. Ramey (hasn't seen him in 2 years because she has no insurance) PMH: Type 2 diabetes, Hypertension, CVA x2 ( 2005, cannot remember when she had her 2nd stroke), Chronic kidney disease, heroin abuse, cocaine abuse PSH: none Family hx: Maternal aunt diagnosed with breast cancer at age 55, no history of cardiac issues Social history: Smokes 6 to 8 cigarettes daily since age 13, Drinks 1-2 beers daily since age 12, Heroin - 4-5 bags intranasally, Cocaine - smoked. Currently lives alone in apartment in [place]. 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 Has 3 children. Home meds: Hydralazine 25mg TID, Gabapentin 100mg TID Allergies: NKDA Present on Admission - Present on Admission Any Indicators Present on Admission: No Review of Systems - Constitutional Constitutional: absent: Chills, Fever, Headache - EENT Eyes: absent: Change in Vision Ears: absent: Abnormal Hearing, Dizziness Nose/Mouth/Throat: absent: Nasal Congestion, Sore Throat - Cardiovascular Cardiovascular: Dyspnea, Leg Edema. absent: Chest Pain, Pain Radiating to Arm/Neck/Jaw, Lightheadedness, Palpitations, Syncope - Respiratory Respiratory: Dyspnea, Dyspnea on Exertion. absent: Cough - Gastrointestinal Gastrointestinal: Abdominal Pain, Constipation. absent: Diarrhea, Nausea, Vomiting - Genitourinary Genitourinary: absent: Difficulty Urinating, Dysuria, Hematuria - Reproductive: Female Reproductive:Female: Post Menopausal - Musculoskeletal Musculoskeletal: absent: Back Pain - Neurological Neurological: absent: Confusion, Syncope, Tremor, Weakness - Psychiatric Psychiatric: absent: Anxiety, Depression Past Patient History - Infectious Disease Hx of Infectious Diseases: None - Past Medical History & Family History Past Medical History?: Yes - Past Social History Smoking Status: Light Smoker < 10 Cigarettes Daily - CARDIAC Hx Hypertension: Yes - PULMONARY Hx Tuberculosis: No - NEUROLOGICAL Hx Seizures: No - ENDOCRINE/METABOLIC Hx Diabetes Mellitus Type 2: Yes - HEMATOLOGICAL/ONCOLOGICAL Hx Human Immunodeficiency Virus (HIV): No - MUSCULOSKELETAL/RHEUMATOLOGICAL Hx Falls: No - GENITOURINARY/GYNECOLOGICAL Hx Sexually Transmitted Disorders: No - PSYCHIATRIC Hx Substance Use: Yes - SURGICAL HISTORY Hx Surgeries: No - ANESTHESIA Hx Anesthesia: No Meds Allergies/Adverse Reactions: Allergies Allergy/AdvReac Type Severity Reaction Status Date / Time No Known Allergies Allergy Verified 03/16/19 19:58 Physical Exam - Constitutional Appears: Well, No Acute Distress - Head Exam Head Exam: ATRAUMATIC, NORMOCEPHALIC - Eye Exam Eye Exam: EOMI, PERRL. absent: Scleral icterus - ENT Exam ENT Exam: Mucous Membranes Moist - Neck Exam Neck exam: Positive for: Full Rom. Negative for: Tenderness Additional comments: Left EJ line in place - Respiratory Exam Respiratory Exam: Rales (rales at bases L>R). absent: Rhonchi, Wheezes - Cardiovascular Exam Cardiovascular Exam: REGULAR RHYTHM, JVD, +S1, +S2 - GI/Abdominal Exam GI & Abdominal Exam: Distended, Normal Bowel Sounds, Soft, Tenderness (Diffuse abdominal tenderness ). absent: Guarding, Hernia, Rebound, Rigid - Extremities Exam Extremities exam: Positive for: pedal edema (2+ pitting edema extending up to thighs bilaterally). Negative for: calf tenderness Additional comments: Difficult to palpate pulses given edema - Back Exam Back exam: absent: CVA tenderness (L), CVA tenderness (R) - Neurological Exam Neurological exam: Alert, Oriented x3 - Psychiatric Exam Psychiatric exam: Normal Affect, Normal Mood - Skin Skin Exam: Dry, Intact, Warm Results - Vital Signs Recent Vital Signs: Last Vital Signs Temp 97.4 F L 03/16/19 23:19 Pulse 92 H 03/16/19 23:19 Resp 20 03/16/19 23:19 BP 186/71 H 03/16/19 23:19 Pulse Ox 96 03/16/19 23:19 - Labs Result Diagrams: 03/16/19 21:09 03/16/19 21:09 Labs: Laboratory Results - last 24 hr 03/16/19 03/16/19 03/16/19 21:09 21:09 21:09 WBC 5.9 RBC 4.74 Hgb 14.6 Hct 45.5 MCV 95.8 D MCH 30.8 MCHC 32.1 L RDW 15.6 H Plt Count 229 MPV 9.9 Neut % (Auto) 72.0 Lymph % (Auto) 15.5 L [place] % (Auto) 6.6 Eos % (Auto) 4.9 H Baso % (Auto) 1.0 Neut # (Auto) 4.2 Lymph # (Auto) 0.9 L [place] # (Auto) 0.4 Eos # (Auto) 0.3 Baso # (Auto) 0.1 PT 12.2 INR 1.1 APTT 38.0 H D-Dimer, Quantitative 634 H Sodium 139 Potassium 4.4 Chloride 107 Carbon Dioxide 24 Anion Gap 13 BUN 28 H Creatinine 2.6 H Est GFR ( Amer) 23 Est GFR (Non-Af Amer) 19 Random Glucose 136 H Calcium 9.2 Total Bilirubin 0.5 AST 35 ALT 27 Alkaline Phosphatase 187 H D Troponin I 0.0650 NT-Pro-B Natriuret Pep 95203 H Total Protein 6.6 Albumin 3.6 Globulin 3.0 Albumin/Globulin Ratio 1.2 Urine Color Urine Clarity Urine pH Ur Specific [place] Urine Protein Urine Glucose (UA) Urine Ketones Urine Blood Urine Nitrate Urine Bilirubin Urine Urobilinogen Ur Leukocyte Esterase Urine WBC (Auto) Urine RBC (Auto) Ur Squamous Epith Cells Hyaline Casts Urine HCG, Qual Urine Opiates Screen Urine Methadone Screen Ur Barbiturates Screen Ur Phencyclidine Scrn Ur Amphetamines Screen U Benzodiazepines Scrn U Oth Cocaine Metabols U Cannabinoids Screen Alcohol, Quantitative < 10 03/16/19 03/16/19 22:40 22:40 WBC RBC Hgb Hct MCV MCH MCHC RDW Plt Count MPV Neut % (Auto) Lymph % (Auto) [place] % (Auto) Eos % (Auto) Baso % (Auto) Neut # (Auto) Lymph # (Auto) [place] # (Auto) Eos # (Auto) Baso # (Auto) PT INR APTT D-Dimer, Quantitative Sodium Potassium Chloride Carbon Dioxide Anion Gap BUN Creatinine Est GFR ( Amer) Est GFR (Non-Af Amer) Random Glucose Calcium Total Bilirubin AST ALT Alkaline Phosphatase Troponin I NT-Pro-B Natriuret Pep Total Protein Albumin Globulin Albumin/Globulin Ratio Urine Color Straw Urine Clarity Clear Urine pH 6.0 Ur Specific [place] 1.005 Urine Protein 2+ H Urine Glucose (UA) 1+ Urine Ketones Negative Urine Blood 1+ H Urine Nitrate Negative Urine Bilirubin Negative Urine Urobilinogen Normal Ur Leukocyte Esterase Trace Urine WBC (Auto) 17 H Urine RBC (Auto) 7 H Ur Squamous Epith Cells 1 Hyaline Casts 0-2 Urine HCG, Qual Negative Urine Opiates Screen Positive H Urine Methadone Screen Negative Ur Barbiturates Screen Negative Ur Phencyclidine Scrn Negative Ur Amphetamines Screen Negative U Benzodiazepines Scrn Negative U Oth Cocaine Metabols Positive H U Cannabinoids Screen Negative Alcohol, Quantitative Assessment & Plan - Assessment and Plan (Free Text) Assessment: 58 year old female with history of hypertension, diabetes, chronic kidney disease who presents for lower extremity edema, shortness of breath and abdo mercedes distention. 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 Tolentino consulted, help appreciated proBNP [id number] D dimer 634 Trop 0.0820 neg ASA 81mg Beta blockers contraindicated given cocaine use Lasix 40mg IV BID Follow up ECHO Last ECHO from April 2017 revealed EF on 73% Follow up venous dopplers and ELMA Daily weights Monitor I & Os Fluid restriction 1500ml Chronic kidney disease, worsening BUN/Cr 28/2.6 Baseline Cr 1.[address] Foote consulted, help appreciated Abdominal distention Follow up Abdomen US AST 35 ALT 27 Alk phos 187 History of hypertension Norvasc 10mg PO Hydralazine 25mg Q8 Avoid beta blockers given cocaine abuse History of Type 2 diabetes At home on Jardiance - last took 1 month ago since she cannot afford it Follow up A1c Low ISS Hypoglycemic protocol History of drug abuse UDS positive for cocaine and opiates Monitor for withdrawal symptoms History of tobacco abuse Nicotine patch daily History of alcohol abuse Alcohol <10 CIWA protocol Ativan 2mg Q4 PRN Thiamine/Folate/MV Prophylaxis No SCDs given lower extremity edema Heparin 5000 units SC Q8 HHD Case discussed with Dr. Andrew Whittington, PGY1 <Andrew Preston - Last Filed: 03/17/19 06:58> Results - Vital Signs Recent Vital Signs: Last Vital Signs Temp 98 F 03/17/19 04:25 Pulse 57 L 03/17/19 04:25 Resp 20 03/17/19 04:25 BP 200/100 H 03/17/19 04:40 Pulse Ox 95 03/17/19 00:25 - Labs Result Diagrams: 03/17/19 06:36 03/16/19 21:09 Labs: Laboratory Results - last 24 hr 03/16/19 03/16/19 03/16/19 21:09 21:09 21:09 WBC 5.9 RBC 4.74 Hgb 14.6 Hct 45.5 MCV 95.8 D MCH 30.8 MCHC 32.1 L RDW 15.6 H Plt Count 229 MPV 9.9 Neut % (Auto) 72.0 Lymph % (Auto) 15.5 L [place] % (Auto) 6.6 Eos % (Auto) 4.9 H Baso % (Auto) 1.0 Neut # (Auto) 4.2 Lymph # (Auto) 0.9 L [place] # (Auto) 0.4 Eos # (Auto) 0.3 Baso # (Auto) 0.1 PT 12.2 INR 1.1 APTT 38.0 H D-Dimer, Quantitative 634 H Sodium 139 Potassium 4.4 Chloride 107 Carbon Dioxide 24 Anion Gap 13 BUN 28 H Creatinine 2.6 H Est GFR ( Amer) 23 Est GFR (Non-Af Amer) 19 Random Glucose 136 H Calcium 9.2 Total Bilirubin 0.5 AST 35 ALT 27 Alkaline Phosphatase 187 H D Troponin I 0.0650 NT-Pro-B Natriuret Pep 46988 H Total Protein 6.6 Albumin 3.6 Globulin 3.0 Albumin/Globulin Ratio 1.2 Urine Color Urine Clarity Urine pH Ur Specific [place] Urine Protein Urine Glucose (UA) Urine Ketones Urine Blood Urine Nitrate Urine Bilirubin Urine Urobilinogen Ur Leukocyte Esterase Urine WBC (Auto) Urine RBC (Auto) Ur Squamous Epith Cells Hyaline Casts Urine HCG, Qual Urine Opiates Screen Urine Methadone Screen Ur Barbiturates Screen Ur Phencyclidine Scrn Ur Amphetamines Screen U Benzodiazepines Scrn U Oth Cocaine Metabols U Cannabinoids Screen Alcohol, Quantitative < 10 03/16/19 03/16/19 03/17/19 22:40 22:40 06:36 WBC 6.5 RBC 4.49 Hgb 13.8 Hct 42.6 MCV 94.9 MCH 30.6 MCHC 32.3 L RDW 15.6 H Plt Count 198 MPV 10.2 Neut % (Auto) 66.2 Lymph % (Auto) 18.4 L [place] % (Auto) 7.6 Eos % (Auto) 6.7 H Baso % (Auto) 1.1 Neut # (Auto) 4.3 Lymph # (Auto) 1.2 [place] # (Auto) 0.5 Eos # (Auto) 0.4 Baso # (Auto) 0.1 PT INR APTT D-Dimer, Quantitative Sodium Potassium Chloride Carbon Dioxide Anion Gap BUN Creatinine Est GFR ( Amer) Est GFR (Non-Af Amer) Random Glucose Calcium Total Bilirubin AST ALT Alkaline Phosphatase Troponin I NT-Pro-B Natriuret Pep Total Protein Albumin Globulin Albumin/Globulin Ratio Urine Color Straw Urine Clarity Clear Urine pH 6.0 Ur Specific [place] 1.005 Urine Protein 2+ H Urine Glucose (UA) 1+ Urine Ketones Negative Urine Blood 1+ H Urine Nitrate Negative Urine Bilirubin Negative Urine Urobilinogen Normal Ur Leukocyte Esterase Trace Urine WBC (Auto) 17 H Urine RBC (Auto) 7 H Ur Squamous Epith Cells 1 Hyaline Casts 0-2 Urine HCG, Qual Negative Urine Opiates Screen Positive H Urine Methadone Screen Negative Ur Barbiturates Screen Negative Ur Phencyclidine Scrn Negative Ur Amphetamines Screen Negative U Benzodiazepines Scrn Negative U Oth Cocaine Metabols Positive H U Cannabinoids Screen Negative Alcohol, Quantitative Attending/Attestation - Attestation I have personally seen and examined this patient.: Yes I have fully participated in the care of the patient.: Yes I have reviewed all pertinent clinical information: Yes Notes (Text): Patient seen and examined with the residents, agree with above. Presents with sob with NYHA Class III symptoms, 2 pillow orthopnea and PND. Bibasilar rales with Lower ext 2+ pitting edema on physical exam Elevated pro-BNP with CXR showing pulmonary congestion Noted to have preserved EF on echo in the past; will order echo to assess LVSF Continue with IV diuresis, cardiology input will be appreciated. Counseled on smoking cessation and abstinence from illicit drug use.
[2019-03-17 06:45] LABS: BASO # 0.1 K/uL (0.0-0.2); BASO % 1.1 % (0.0-2.0); EOS # 0.4 K/uL (0.0-0.7); EOS % 6.7 % (0.0-4.0); HEMOGLOBIN 13.8 g/dL (11.0-16.0); LYMPH # 1.2 K/uL (1.0-4.3); LYMPH % 18.4 % (20.0-40.0); MEAN CELL VOLUME 94.9 fL (81.0-99.0); MEAN CORPUSCULAR HEMOGLOBIN 30.6 pg (27.0-31.0); MEAN CORPUSCULAR HGB CONC 32.3 g/dL (33.0-37.0); MEAN PLATELET VOLUME 10.2 fL (7.2-11.7); MONO # 0.5 K/uL (0.0-0.8); MONO % 7.6 % (0.0-10.0); NEUT # 4.3 K/uL (1.8-7.0); NEUT % 66.2 % (50.0-75.0); NRBC % 0.1 % (0.0-2.0); RBC 4.49 Mil/uL (3.80-5.20); RED CELL DISTRIBUTION WIDTH 15.6 % (11.5-14.5); WHITE BLOOD COUNT 6.5 K/uL (4.8-10.8)
[2019-03-17 07:12] LABS: ALB/GLOB RATIO 1.2 (1.0-2.1); ALBUMIN 3.1 g/dL (3.5-5.0); CALCIUM 8.6 mg/dl (8.6-10.4)
--- NOTE | 2019-03-17 07:45 | CP.PCM.PN ---
<Alivia Vo - Last Filed: 03/17/19 17:38> Subjective - Date & Time of Evaluation Date of Evaluation: 03/17/19 Time of Evaluation: 07:45 - Subjective Subjective: PGY-1 Alivia Vo D.O. Medicine progress note for Dr. Helton's service: Patient was seen and examined this morning. Patient states that she is feeling somewhat better. She says her leg swelling is still present but has improved. Her abdominal pain is still present. She says that she has had a hard time staying off drugs despite going to detox several times. She also admits to not tkaing her medications due to financial issues. Objective - Vital Signs/Intake and Output Vital Signs (last 24 hours): Temp Pulse Resp BP Pulse Ox 98 F 57 L 20 200/100 H 95 03/17/19 04:25 03/17/19 04:25 03/17/19 04:25 03/17/19 04:40 03/17/19 00:25 - Medications Medications: Current Medications Amlodipine Besylate (Norvasc) 10 mg PO DAILY [facility] Last Admin: 03/17/19 01:19 Dose: 10 mg Aspirin (Aspirin Chewable) 81 mg PO DAILY [facility] Dextrose (Dextrose 50% Inj) 0 ml IV STAT PRN; Protocol PRN Reason: Hypoglycemia Protocol Dextrose (Glutose 15) 0 gm PO ONCE PRN; Protocol PRN Reason: Hypoglycemia Protocol Folic Acid (Folic Acid) 1 mg PO DAILY [facility] Furosemide (Lasix) 40 mg IVP BID [facility] Glucagon (Glucagen Diagnostic Kit) 0 mg IM STAT PRN; Protocol PRN Reason: Hypoglycemia Protocol Heparin Sodium (Porcine) (Heparin) 5,000 units SC Q8 [facility] Last Admin: 03/17/19 05:25 Dose: 5,000 units Hydralazine HCl (Apresoline) 25 mg PO TID [facility] Dextrose (Dextrose 5% In Water 1000 Ml) 1,000 mls @ 0 mls/hr IV .Q0M PRN; Protocol PRN Reason: Hypoglycemia Protocol Insulin Human Regular (Novolin R) 0 unit SC ACHS [facility]; Protocol Lorazepam (Ativan) 2 mg IVP Q4H PRN PRN Reason: Agitation Multivitamins (Hexavitamin) 1 tab PO DAILY [facility] Nicotine (Nicoderm Cq) 1 patch TD DAILY [facility] Pneumococcal Polyvalent Vaccine (Pneumovax 23 Vaccine) 0.5 ml IM .ONCE ONE Stop: 03/18/19 10:01 Thiamine HCl (Vitamin B1 Tab) 100 mg PO DAILY [facility] - Labs Labs: 03/17/19 06:36 03/17/19 06:36 PT 12.2 SECONDS (9.7-12.2) 03/16/19 21:09 INR 1.1 03/16/19 21:09 APTT 38.0 SECONDS (21-34) H 03/16/19 21:09 - Constitutional Appears: Non-toxic, No Acute Distress - Head Exam Head Exam: ATRAUMATIC, NORMAL INSPECTION - Eye Exam Additional comments: R eye fixed laterally - ENT Exam ENT Exam: Mucous Membranes Moist - Respiratory Exam Respiratory Exam: Clear to Ausculation Bilateral, NORMAL BREATHING PATTERN - Cardiovascular Exam Cardiovascular Exam: RRR, +S1, +S2 - GI/Abdominal Exam GI & Abdominal Exam: Soft, Tenderness (b/l toward her sides), Normal Bowel Sounds. absent: Distended, Guarding Additional comments: obese - Extremities Exam Extremities Exam: Pedal Edema (1+ b/l), Tenderness - Back Exam Back Exam: NORMAL INSPECTION - Neurological Exam Neurological Exam: Alert, Awake, Normal Gait, Oriented x3 - Psychiatric Exam Psychiatric exam: Normal Affect, Normal Mood - Skin Skin Exam: Dry, Normal Color, Warm Assessment and Plan - Assessment and Plan (Free Text) Assessment: Patient is a 58 yo female with CKD, HTN, T2DM, and polysubstance use (heroin and cocaine) who presented with leg swelling and abdominal pain. Patient found to have worsening kidney disease. Plan: Bilateral lower extremity swelling and pleural effusion, acute- consider CHF, cardiorenal disease, DM, HTN - CXR: cardiomegaly, L pleural effusion - EKG: NSR, PVCs - LE Dopplers: no DVT - Echo: EF 62%, mod-severe LVH, severe pulm HTN, mod TR - BNP 31,300- trend - Trop negative - Monitor on telemetry - Fluid restriction 1500 mL - Strict Is & Os - Daily weights - Duoneb Q6H PRN - Lasix 40 mg IV BID - Cardiology consulted ([facility]) Abdominal pain, acute - HIV and hepatitis negative - LFTs wnl - Abd US: mild hepatomegaly. Diffuse increased echogenicity in the liver may reflect hepatic steatosis. Nodular contour of the liver could represent cirrhosis. Medical renal disease. Gallbladder is contracted but no cholelithiasis. Mild diffuse dilation of the common bile duct without evidence for choledocholithiasis. - CT A/P pending - Hepatobiliary surgeon consulted ([facility]) Chronic kidney disease - BUN 30, Cr 2.6 - UA: 2+ prot, 1+ blood, 17 WBC, 7 RBC - D-dimer 634 - BNP 31,300 - 24-hr urine collection in progress - Renal US pending - Nephrology consulted ([facility])- potential kidney biopsy (was recommended to patient previously) Hypertension, chronic, poorly controlled - Vitals Q4H - Norvasc 10 mg PO daily - Increase Hydralazine to 50 mg PO Q8H - Start Metoprolol 50 mg PO BID Constipation, acute chronic - Senokot daily Polysubstance use disorder, chronic- heroin (intranasal), cocaine, tobacco, alcohol - UDS positive for cocaine and opiates - BAL <10 - HIV and hepatitis negative - CIWA - Ativan 2 mg IV Q4H PRN - Trazodone 100 mg PO QHS - Methadone taper - Nicoderm daily - Multivitamin, thiamine 100 mg, folate 1 mg daily - Psychiatry consulted ([facility]) H/o type 2 diabetes mellitus, chronic - A1c 6 - Accuchecks ACHS - Hypoglycemia protocol - ISS low Ppx: VTE: SCDs contraindicated, Heparin 5000 units SC Q8H GI: Pepcid 20 mg PO daily Diet: Heart healthy Case was discussed with attending, Dr. Helton. <Dai Helton V - Last Filed: 03/17/19 18:16> Objective - Vital Signs/Intake and Output Vital Signs (last 24 hours): Temp Pulse Resp BP Pulse Ox 98.4 F 93 H 20 167/72 H 97 03/17/19 07:00 03/17/19 08:45 03/17/19 07:00 03/17/19 13:10 03/17/19 12:00 - Medications Medications: Current Medications Amlodipine Besylate (Norvasc) 10 mg PO DAILY [facility] Last Admin: 03/17/19 10:05 Dose: 10 mg Dextrose (Dextrose 50% Inj) 0 ml IV STAT PRN; Protocol PRN Reason: Hypoglycemia Protocol Dextrose (Glutose 15) 0 gm PO ONCE PRN; Protocol PRN Reason: Hypoglycemia Protocol Folic Acid (Folic Acid) 1 mg PO DAILY [facility] Last Admin: 03/17/19 10:05 Dose: 1 mg Furosemide (Lasix) 40 mg IVP BID [facility] Last Admin: 03/17/19 10:06 Dose: 40 mg Glucagon (Glucagen Diagnostic Kit) 0 mg IM STAT PRN; Protocol PRN Reason: Hypoglycemia Protocol Heparin Sodium (Porcine) (Heparin) 5,000 units SC Q8 [facility] Last Admin: 03/17/19 13:00 Dose: 5,000 units Hydralazine HCl (Apresoline) 50 mg PO TID [facility] Last Admin: 03/17/19 13:07 Dose: 50 mg Dextrose (Dextrose 5% In Water 1000 Ml) 1,000 mls @ 0 mls/hr IV .Q0M PRN; Protocol PRN Reason: Hypoglycemia Protocol Insulin Human Regular (Novolin R) 0 unit SC ACHS [facility]; Protocol Last Admin: 03/17/19 13:02 Dose: Not Given Lorazepam (Ativan) 2 mg IVP Q4H PRN PRN Reason: Agitation Metoprolol Tartrate (Lopressor) 25 mg PO BID [facility] Last Admin: 03/17/19 10:18 Dose: 25 mg Multivitamins (Hexavitamin) 1 tab PO DAILY [facility] Last Admin: 03/17/19 10:05 Dose: 1 tab Nicotine (Nicoderm Cq) 1 patch TD DAILY [facility] Last Admin: 03/17/19 10:10 Dose: 1 patch Pneumococcal Polyvalent Vaccine (Pneumovax 23 Vaccine) 0.5 ml IM .ONCE ONE Stop: 03/18/19 10:01 Thiamine HCl (Vitamin B1 Tab) 100 mg PO DAILY [facility] Last Admin: 03/17/19 10:05 Dose: 100 mg Trazodone HCl (Desyrel) 100 mg PO HS [facility] - Labs Labs: 03/17/19 06:36 03/17/19 06:36 PT 12.2 SECONDS (9.7-12.2) 03/16/19 21:09 INR 1.1 03/16/19 21:09 APTT 38.0 SECONDS (21-34) H 03/16/19 21:09 Attending/Attestation - Attestation I have personally seen and examined this patient.: Yes I have fully participated in the care of the patient.: Yes I have reviewed all pertinent clinical information, including history, physical exam and plan: Yes Notes (Text): Patient seen, examined and discussed with medical sales representative. Attempt to see patient this morning but had gone for ultrasound. Revisited the patient this afternoon P. Patient denies erythema with each other from prior hospitalizations. She is a 58-year-old female with a history of h ypertension, diabetes, acute on chronic renal insufficiency as well as heroin intranasal and cocaine use. She reports to me she last used heroin about a day and a half ago as well as cocaine. She reports that she has been having abdominal pain for the past 2 months as well as shortness of breath over the past 2 months. She reports that she is noncompliant on her high blood pressure medications she reports the cost is too much for her. Patient denies chest pains denies palpitations reporting shortness of breath abdominal pain reports that she is going to the bathroom but not having strong bowel movement and denies urinary complaints. Assessment/Plan 1. Hypertensive urgency Assessment/plan Contributing factors including noncompliance, and heroin/cocaine withdrawal Cardiology on board help appreciated Nephrology on board help appreciated Norvasc 10 mg once a day Lasix 40 mg IV twice a day Hydralazine 50 mg p.o. 3 times daily Lopressor 25 p.o. twice daily nephrology suggested change to Coreg Continue to monitor on telemetry Patient has complete echocardiogram awaiting results. Patient prior echo noted for mild concentric left hypertrophic hypertrophy 2. Cardiomegaly on chest x-ray Assessment/plan Unclear if patient has heart failure or not Patient has risk factors for heart failure including hypertension diabetes. Patient noted to have an elevated proBNP Patient presently on Lopressor 25 mg twice a day Patient is on Norvasc 10 mg once a day Patient is on Lasix to 40 twice a day Patient is noted to be on a fluid restriction we will monitor intake and output Cardiology on board 3. Acute on chronic renal insufficiency Assessment/plan Nephrology on board help appreciated Renal bladder ultrasound ordered Discussed with resident on nephrology service patient for a 24-hour urine collection as well as renal biopsy Patient was recommended for renal biopsy prior hospitalizations however she reports that she did not follow-up Patient noted in prior hospitalization 24 urine about 8 g of protein was collected 4. History of diabetes Assessment/plan Hypoglycemic protocol Accu-Cheks q. before meals at bedtime 5. Heroin abuse and use Assessment/plan Psychiatry on consult help appreciated Patient noted EKG normal QT if methadone is recommended 6. Cocaine use Assessment/plan Patient is aware that she puts herself at risk for arrhythmia cardiac arrest and with cocaine along 7. Abdominal pain Assessment/plan Patient ordered for CT of abdomen pelvis with p.o. contrast Patient abdominal ultrasound reviewed noting mild hepatomegaly. Diffuse increased echogenicity in the liver may reflect hepatic steatosis. Nodular contour of the liver could represent cirrhosis. Medical renal disease. Gallbladder is contracted but no cholelithiasis. Mild diffuse dilation of the common bile duct without evidence for choledocholithiasis. We will obtain a consult with liver specialist, Dr. Zambrano to eval patient for cirrhosis. Will check patient for HIV and hepatitis 8. Leg Edema Assessment/Plan Venous doppler lower extremity pending pending echocardiogram 9. Prophylactic measure Heparin 5000 units subq8H Pepcid 20mg PO daily Patient seen later this afternoon she is refusing CAT scan she reports she is tired. She says she will try tomorrow I did indicate to her by her delay in the CAT scan with delays in terms of understanding what is going on with her belly she understands that we will reattempt CAT scan abdomen pelvis p.o. contrast in the morning.
--- NOTE | 2019-03-17 07:50 | RAD ---
Date of service: 03/16/2019 HISTORY: SOB COMPARISON: Portable chest 05/14/2017. TECHNIQUE: 1 view obtained. FINDINGS: LUNGS: Left hemidiaphragm appears mildly elevated. Developing airspace disease is question at the left lower lobe with linear atelectasis noted in the interval lateral to left hilum. Linear atelectasis developed at the right base inferiorly with reiteration of fibrosis or linear atelectasis lateral to the right heart border again evident. No right-sided infiltrate. PLEURA: No pneumothorax bilaterally or right pleural effusion small left pleural effusion not excluded. CARDIOVASCULAR: No aortic atherosclerotic calcification present. Cardiomegaly remains difficult to exclude. No definite pulmonary vascular congestion. OSSEOUS STRUCTURES: No significant abnormalities. VISUALIZED UPPER ABDOMEN: Normal. OTHER FINDINGS: None. IMPRESSION: Cardiomegaly remains difficult to exclude. No definite pulmonary vascular congestion appreciable at this time. Developing infiltrate suspected at the left base versus atelectasis. Small left pleural effusion not excluded. Interval linear atelectasis identified bilaterally with limited linear atelectasis or fibrosis again evident lateral to right heart border as per above. Elevated left hemidiaphragm.
[2019-03-17 07:53] LABS: HEPATITIS B SURFACE AG Negative (NEGATIVE)
[2019-03-17] MEDS: (Novolin R) Insulin Human Regular 100 units/ml vial SC SCH ×4 (07:57→21:07)
[2019-03-17 07:58] LABS: HEPATITIS A IGM NEGATIVE (NEGATIVE); HEPATITIS B CORE AB NEGATIVE (NEGATIVE)
[2019-03-17 08:10] LABS: HEPATITIS C ANTIBODY NEGATIVE (NEGATIVE)
--- NOTE | 2019-03-17 09:01 | CP.PCM.PCO ---
Physician Communication Note - Physician Communication Note Physician Communication Note: cancelled initial consult nephrology given patient is known to Dr. veronica
--- NOTE | 2019-03-17 09:34 | CP.PCM.CON ---
<Robin Palacio - Last Filed: 03/17/19 20:41> History of Present Illness - History of Present Illness History of Present Illness: Nephro Consult Note for Dr. Smith Service Robin Palacio DO, PGY-3 Consulted for: SUSANNAH on CKD, Progressiveky worsening renal function This is a 58 yo F with PMH of HTN, DM2, CVA x2 (first in 2005, date of 2nd unknown), CKD, and frequent cocaine and heroin abuse (snort/smoking, denies ever injecting) who presented to [facility] with complaints of progressively swelling bilateral LE x2-3 months, progressively worsening shortness of breath (exertional and intermittently at rest), and worsening abdominal swelling and pain x2 months. Of note, patient is poor with medication compliance and follow- up; has not seen her PMD in 2 years due to lost insurance, and only intermittently fills some scripts at a time (unclear who is writing the prescriptions) and taking off schedule. Nephro was consulted due to SUSANNAH over CVD vs progressively worsening renal function. Patient reports progressively worsening LE swelling, worse when on feet, improved when resting or when legs elevated. Shortness of breath when exerting herself or walking > 2 blocks, but increasingly occuring at rest as well. Denies cough, dyspnea, pain with deep breaths. Abdominal swelling has progressively worsened, and is not alleviated with anything. Reports taking only hydralazine 25mg TID and Gabapentin 100mg TID. Unclear/inconsistent on how well she has been urinating; initially reports that she notices how much she urinates has been fluctuating, then reports it has been down in the last 3-4 days, but then backtracks again and denies. Denies hematuria, dysuria. foamy urine, discharge, sensation of incomplete voiding, or urinary leakage. Denies cough, chest pain, emesis, diarrhea, fevers, chills, vision changes, or syncope/near-syncope. 12 system ROS reviewed and negative, except as above. PMH: as above PSH: denies Fam Hx: patient unaware of hx in primary relatives, only knows of maternal aunt with breast Ca Soc Hx: unemployed, active tobacco user (/ ppd for > 40 yrs), active alcohol (1-2 beers nightly), admits cocaine (smoked 3 nights prior) and heroin (snorted) last evening prior to admission PMD: Dr. Ramey Review of Systems - Review of Systems All systems: reviewed and no additional remarkable complaints except (as per HPI) Past Patient History - Infectious Disease Hx of Infectious Diseases: None - Past Medical History & Family History Past Medical History?: Yes - Past Social History Smoking Status: Light Smoker < 10 Cigarettes Daily - CARDIAC Hx Hypertension: Yes - PULMONARY Hx Tuberculosis: No - NEUROLOGICAL Hx Seizures: No - ENDOCRINE/METABOLIC Hx Diabetes Mellitus Type 2: Yes - HEMATOLOGICAL/ONCOLOGICAL Hx Human Immunodeficiency Virus (HIV): No - MUSCULOSKELETAL/RHEUMATOLOGICAL Hx Falls: No - GENITOURINARY/GYNECOLOGICAL Hx Sexually Transmitted Disorders: No - PSYCHIATRIC Hx Substance Use: Yes - SURGICAL HISTORY Hx Surgeries: No - ANESTHESIA Hx Anesthesia: No Meds Allergies/Adverse Reactions: Allergies Allergy/AdvReac Type Severity Reaction Status Date / Time No Known Allergies Allergy Verified 03/16/19 19:58 - Medications Medications: Current Medications Amlodipine Besylate (Norvasc) 10 mg PO DAILY [facility] Last Admin: 03/17/19 01:19 Dose: 10 mg Aspirin (Aspirin Chewable) 81 mg PO DAILY [facility] Dextrose (Dextrose 50% Inj) 0 ml IV STAT PRN; Protocol PRN Reason: Hypoglycemia Protocol Dextrose (Glutose 15) 0 gm PO ONCE PRN; Protocol PRN Reason: Hypoglycemia Protocol Folic Acid (Folic Acid) 1 mg PO DAILY ENRIQUE Furosemide (Lasix) 40 mg IVP BID ENRIQUE Glucagon (Glucagen Diagnostic Kit) 0 mg IM STAT PRN; Protocol PRN Reason: Hypoglycemia Protocol Heparin Sodium (Porcine) (Heparin) 5,000 units SC Q8 [facility] Last Admin: 03/17/19 05:25 Dose: 5,000 units Hydralazine HCl (Apresoline) 25 mg PO TID [facility] Dextrose (Dextrose 5% In Water 1000 Ml) 1,000 mls @ 0 mls/hr IV .Q0M PRN; Protocol PRN Reason: Hypoglycemia Protocol Insulin Human Regular (Novolin R) 0 unit SC ACHS [facility]; Protocol Last Admin: 03/17/19 07:57 Dose: Not Given Lorazepam (Ativan) 2 mg IVP Q4H PRN PRN Reason: Agitation Multivitamins (Hexavitamin) 1 tab PO DAILY [facility] Nicotine (Nicoderm Cq) 1 patch TD DAILY [facility] Pneumococcal Polyvalent Vaccine (Pneumovax 23 Vaccine) 0.5 ml IM .ONCE ONE Stop: 03/18/19 10:01 Thiamine HCl (Vitamin B1 Tab) 100 mg PO DAILY ENRIQUE Physical Exam - Constitutional Appears: Non-toxic, No Acute Distress - Head Exam Head Exam: ATRAUMATIC, NORMOCEPHALIC - Eye Exam Eye Exam: EOMI. absent: Conjunctival injection, Normal appearance (has right eye lateral and superior gaze deviation (likely 2/2 prior CVA)), Scleral icterus Pupil Exam: absent: Irregular, Unequal - ENT Exam ENT Exam: Mucous Membranes Moist - Neck Exam Neck exam: Negative for: Lymphadenopathy, Thyromegaly - Respiratory Exam Respiratory Exam: Clear to Auscultation Bilateral, Prolonged Expiratory Phase, NORMAL BREATHING PATTERN. absent: Accessory Muscle Use, Chest Wall Tenderness, Decreased Breath Sounds, Rales, Rhonchi, Wheezes - Cardiovascular Exam Cardiovascular Exam: REGULAR RHYTHM, RRR, +S1, +S2. absent: Bradycardia, Tachycardia, Irregular Rhythm, JVD, +S4 - GI/Abdominal Exam Additional comments: clear abdominal distension, firm but not rigid (more prominently in bilateral lower quadrants when sitting up) No spider angiomata or caput medusa appreciated distant-sounding bowel sounds heard sparsely diffusely tender to palpation, most prominent epigastrically and at bilateral lower quadrants, mild flank pain, no CVA tenderness - Extremities Exam Extremities exam: Positive for: full ROM, joint swelling, pedal edema (+2-3 pitting edema from feet to mid-thighs). Negative for: calf tenderness, tenderness, pedal pulses present (unable to palpate pulses through pedal edema) - Back Exam Back exam: absent: CVA tenderness (L), CVA tenderness (R) - Neurological Exam Additional comments: awake and alert, moving all extremities spontaneously and on command right eye lateral/superior gaze deviation, but otherwise grossly neurologically intact - Psychiatric Exam Psychiatric exam: Normal Affect, Normal Mood - Skin Skin Exam: Intact, Normal Color Additional comments: waxy skin tone at bilateral LE from ankles to mid-thighs Results - Vital Signs Recent Vital Signs: Last Vital Signs Temp 98.4 F 03/17/19 07:00 Pulse 93 H 03/17/19 08:45 Resp 20 03/17/19 07:00 BP 186/96 H 03/17/19 07:00 Pulse Ox 97 03/17/19 07:00 - Labs Result Diagrams: 03/17/19 06:36 03/17/19 06:36 Labs: Laboratory Results - last 24 hr 03/16/19 03/16/19 03/16/19 21:09 21:09 21:09 WBC 5.9 RBC 4.74 Hgb 14.6 Hct 45.5 MCV 95.8 D MCH 30.8 MCHC 32.1 L RDW 15.6 H Plt Count 229 MPV 9.9 Neut % (Auto) 72.0 Lymph % (Auto) 15.5 L Garden % (Auto) 6.6 Eos % (Auto) 4.9 H Baso % (Auto) 1.0 Neut # (Auto) 4.2 Lymph # (Auto) 0.9 L [place] # (Auto) 0.4 Eos # (Auto) 0.3 Baso # (Auto) 0.1 PT 12.2 INR 1.1 APTT 38.0 H D-Dimer, Quantitative 634 H Sodium 139 Potassium 4.4 Chloride 107 Carbon Dioxide 24 Anion Gap 13 BUN 28 H Creatinine 2.6 H Est GFR ( Amer) 23 Est GFR (Non-Af Amer) 19 Random Glucose 136 H Hemoglobin A1c Calcium 9.2 Phosphorus Magnesium Total Bilirubin 0.5 AST 35 ALT 27 Alkaline Phosphatase 187 H D Troponin I 0.0650 NT-Pro-B Natriuret Pep 71174 H Total Protein 6.6 Albumin 3.6 Globulin 3.0 Albumin/Globulin Ratio 1.2 Triglycerides Cholesterol LDL Cholesterol Direct HDL Cholesterol Urine Color Urine Clarity Urine pH Ur Specific [place] Urine Protein Urine Glucose (UA) Urine Ketones Urine Blood Urine Nitrate Urine Bilirubin Urine Urobilinogen Ur Leukocyte Esterase Urine WBC (Auto) Urine RBC (Auto) Ur Squamous Epith Cells Hyaline Casts Urine HCG, Qual Urine Opiates Screen Urine Methadone Screen Ur Barbiturates Screen Ur Phencyclidine Scrn Ur Amphetamines Screen U Benzodiazepines Scrn U Oth Cocaine Metabols U Cannabinoids Screen Alcohol, Quantitative < 10 Hepatitis A IgM Ab Hep Bs Antigen Hep B Core IgM Ab Hepatitis C Antibody 03/16/19 03/16/19 03/17/19 22:40 22:40 06:36 WBC 6.5 RBC 4.49 Hgb 13.8 Hct 42.6 MCV 94.9 MCH 30.6 MCHC 32.3 L RDW 15.6 H Plt Count 198 MPV 10.2 Neut % (Auto) 66.2 Lymph % (Auto) 18.4 L [place] % (Auto) 7.6 Eos % (Auto) 6.7 H Baso % (Auto) 1.1 Neut # (Auto) 4.3 Lymph # (Auto) 1.2 Garden # (Auto) 0.5 Eos # (Auto) 0.4 Baso # (Auto) 0.1 PT INR APTT D-Dimer, Quantitative Sodium Potassium Chloride Carbon Dioxide Anion Gap BUN Creatinine Est GFR ( Amer) Est GFR (Non-Af Amer) Random Glucose Hemoglobin A1c Calcium Phosphorus Magnesium Total Bilirubin AST ALT Alkaline Phosphatase Troponin I NT-Pro-B Natriuret Pep Total Protein Albumin Globulin Albumin/Globulin Ratio Triglycerides Cholesterol LDL Cholesterol Direct HDL Cholesterol Urine Color Straw Urine Clarity Clear Urine pH 6.0 Ur Specific [place] 1.005 Urine Protein 2+ H Urine Glucose (UA) 1+ Urine Ketones Negative Urine Blood 1+ H Urine Nitrate Negative Urine Bilirubin Negative Urine Urobilinogen Normal Ur Leukocyte Esterase Trace Urine WBC (Auto) 17 H Urine RBC (Auto) 7 H Ur Squamous Epith Cells 1 Hyaline Casts 0-2 Urine HCG, Qual Negative Urine Opiates Screen Positive H Urine Methadone Screen Negative Ur Barbiturates Screen Negative Ur Phencyclidine Scrn Negative Ur Amphetamines Screen Negative U Benzodiazepines Scrn Negative U Oth Cocaine Metabols Positive H U Cannabinoids Screen Negative Alcohol, Quantitative Hepatitis A IgM Ab Hep Bs Antigen Hep B Core IgM Ab Hepatitis C Antibody 03/17/19 03/17/19 03/17/19 06:36 06:36 06:36 WBC RBC Hgb Hct MCV MCH MCHC RDW Plt Count MPV Neut % (Auto) Lymph % (Auto) Garden % (Auto) Eos % (Auto) Baso % (Auto) Neut # (Auto) Lymph # (Auto) Garden # (Auto) Eos # (Auto) Baso # (Auto) PT INR APTT D-Dimer, Quantitative Sodium 136 Potassium 3.8 Chloride 107 Carbon Dioxide 25 Anion Gap 8 L BUN 30 H Creatinine 2.6 H Est GFR ( Amer) 23 Est GFR (Non-Af Amer) 19 Random Glucose 104 D Hemoglobin A1c 6.0 Calcium 8.6 Phosphorus 3.4 Magnesium 1.7 Total Bilirubin 0.4 AST 28 ALT 18 Alkaline Phosphatase 158 H Troponin I NT-Pro-B Natriuret Pep Total Protein 5.6 L Albumin 3.1 L Globulin 2.5 Albumin/Globulin Ratio 1.2 Triglycerides 92 D Cholesterol 148 LDL Cholesterol Direct 86 HDL Cholesterol 68 Urine Color Urine Clarity Urine pH Ur Specific [place] Urine Protein Urine Glucose (UA) Urine Ketones Urine Blood Urine Nitrate Urine Bilirubin Urine Urobilinogen Ur Leukocyte Esterase Urine WBC (Auto) Urine RBC (Auto) Ur Squamous Epith Cells Hyaline Casts Urine HCG, Qual Urine Opiates Screen Urine Methadone Screen Ur Barbiturates Screen Ur Phencyclidine Scrn Ur Amphetamines Screen U Benzodiazepines Scrn U Oth Cocaine Metabols U Cannabinoids Screen Alcohol, Quantitative Hepatitis A IgM Ab Negative Hep Bs Antigen Negative Hep B Core IgM Ab Negative Hepatitis C Antibody Negative Assessment & Plan - Assessment and Plan (Free Text) Assessment: This is a 58 yo F with PMH of HTN, DM2, CVA x2 (first in 2005, date of 2nd unknown), CKD, and frequent cocaine and heroin abuse (snort/smoking, denies ever injecting) who presented to [facility] with complaints of progressively swelling bilateral LE x2-3 months, progressively worsening shortness of breath (exertional and intermittently at rest), and worsening abdominal swelling and pain x2 months. Nephro was consulted due to SUSANNAH over CVD vs progressively worsening renal function. Plan: 1) Bilateral LE and abdominal swelling, possible anasarca 2) Active tobacco, cocaine, and heroin abuse 3) HTN 4) DM2 5) Hx CVA x2 6) Worsening renal function SUSANNAH on CKD vs Progressive renal failure 7) Medication non-compliance -Cr 2.6 this admission, 1.7-1.9 in 2018, 1.1-1.3 in 2017 Progressively worsening, unclear etiology; drug-induced (vasospasm from cocaine vs hypoperfusing 2/2 heroin use), cardiorenal, DM nephropathy A1c 6.0, last was 6.1, so DM well controlled, but can still have DM nephropathy despite well-controlled DM In March 2018, urine random total protein > 8g, but continues to have normal albumin, suggestive nephrotic-range proteinuria without nephrotic syndrome Signs and symptoms strongly suggestive of CHF exacerbation, last Echo (2016) notable for EF 73%, pending repeat this admission Holding Aspirin, pt will need renal biopsy to determine underlying etiology -BP currently elevated, current regimen: Amlodipine 10mg, Lasix IV 40mg q12, Lopressor 25mg BID, Hydralazine 50mg TID Recommend switching Lopressor 25mg BID to Coreg 6.25mg BID, has better BP control Given current Cr and eGFR, would avoid CHARLINE/ARB until underlying etiology of renal dysfunction determined -Cardio consulted, appreciate their recs -24 hr urine protein, creatinine clearance, urine electrolytes, complement, JEAN-PAUL, and ANCA ordered, f/u Patient seen, reviewed, and discussed with attending, Dr. Smith <Arvin Smith - Last Filed: 03/18/19 08:52> Meds - Medications Medications: Current Medications Albuterol/Ipratropium (Duoneb 3 Mg/0.5 Mg (3 Ml) Ud) 3 ml INH RQ6 PRN PRN Reason: Shortness of Breath Amlodipine Besylate (Norvasc) 10 mg PO DAILY [facility] Last Admin: 03/17/19 10:05 Dose: 10 mg Carvedilol (Coreg) 6.25 mg PO BID [facility] Dextrose (Dextrose 50% Inj) 0 ml IV STAT PRN; Protocol PRN Reason: Hypoglycemia Protocol Dextrose (Glutose 15) 0 gm PO ONCE PRN; Protocol PRN Reason: Hypoglycemia Protocol Folic Acid (Folic Acid) 1 mg PO DAILY [facility] Last Admin: 03/17/19 10:05 Dose: 1 mg Furosemide (Lasix) 40 mg IVP BID [facility] Last Admin: 03/17/19 17:44 Dose: 40 mg Glucagon (Glucagen Diagnostic Kit) 0 mg IM STAT PRN; Protocol PRN Reason: Hypoglycemia Protocol Heparin Sodium (Porcine) (Heparin) 5,000 units SC Q8 [facility] Last Admin: 03/18/19 06:01 Dose: 5,000 units Hydralazine HCl (Apresoline) 50 mg PO TID [facility] Last Admin: 03/17/19 17:44 Dose: 50 mg Dextrose (Dextrose 5% In Water 1000 Ml) 1,000 mls @ 0 mls/hr IV .Q0M PRN; Protocol PRN Reason: Hypoglycemia Protocol Insulin Human Regular (Novolin R) 0 unit SC ACHS [facility]; Protocol Last Admin: 03/18/19 07:48 Dose: Not Given Lorazepam (Ativan) 1 mg IVP Q6H PRN PRN Reason: Agitation Methadone HCl (Methadone) 0 mg PO Q24H [facility]; Taper Stop: 03/21/19 09:59 Multivitamins (Hexavitamin) 1 tab PO DAILY [facility] Last Admin: 03/17/19 10:05 Dose: 1 tab Nicotine (Nicoderm Cq) 1 patch TD DAILY [facility] Last Admin: 03/17/19 10:10 Dose: 1 patch Pneumococcal Polyvalent Vaccine (Pneumovax 23 Vaccine) 0.5 ml IM .ONCE ONE Stop: 03/18/19 10:01 Sennosides (Senokot Tab) 8.6 mg PO DAILY [facility] Thiamine HCl (Vitamin B1 Tab) 100 mg PO DAILY [facility] Last Admin: 03/17/19 10:05 Dose: 100 mg Trazodone HCl (Desyrel) 100 mg PO HS [facility] Last Admin: 03/17/19 21:50 Dose: 100 mg Results - Vital Signs Recent Vital Signs: Last Vital Signs Temp 98.2 F 03/18/19 04:10 Pulse 74 03/18/19 04:10 Resp 20 03/18/19 04:10 BP 150/83 03/18/19 04:10 Pulse Ox 97 03/18/19 04:10 - Labs Result Diagrams: 03/17/19 06:36 03/17/19 06:36 Labs: Laboratory Results - last 24 hr 03/17/19 03/17/19 03/17/19 05:59 11:09 12:30 POC Glucose (mg/dL) 125 H 169 H HIV 1&2 Antibody Screen Negative 03/18/19 06:14 POC Glucose (mg/dL) 93 HIV 1&2 Antibody Screen Attending/Attestation - Attestation I have personally seen and examined this patient.: Yes I have fully participated in the care of the patient.: Yes I have reviewed all pertinent clinical information: Yes Notes (Text): Patient seen and examined; I agree with the resident's note as above with the following additions/edits: 58 yo F w/ PMH of HTN, DM2, CVA x2 (first in 2005, date of 2nd unknown), CKD IIIB, and cocaine/heroin abuse, admitted with acute decompensated CHF, nephrology being consullted for SUSANNAH; Patient with poor medical f/u and medication adherence; seen by our service for advanced CKD last year during admission to detox; patient didn't f/u with us on d/c; already had advanced CKD with eGFR in low 30's; also had ~8 g proteinuria on random urine prot/creat ratio but without nephrotic syndrome; current worsening of renal function likely reflects progression of CKD rather than SUSANNAH; Etiology of CKD somewhat unclear; sugars apparently have been well controlled with patient only prescribed metformin at home (not taking) and A1C ~6.1%; limited serologic workup has been unremarkable for other causes of proteinuric kidney disease; secondary FSGS in the setting of ischemic injury from frequent cocaine use is a possibility; may benefit from renal biopsy but likely will show irreversible changes; For now, the mainstay of treatment is aggressive anti-htn control; regarding ADRIANA blockade for anti-proteinuric effect, will start low dose lisinopril if renal function stable by tomorrow; continue hydralazine 50 mg tid and amlodipine 10 mg daily; will change metoprolol to coreg for better anti-htn effect; Acute decompensation of CHF likely due to worsening renal failure; agree with obtaining repeat echo; agree with IV lasix 40 mg bid; ADRIANA blockade will help also; -Obtaining 24 hr urine for protein and creatinine clearance; -Avoid nephrotoxic agents (NSAIDS, phosphate enema, etc); Thank you for this referral, we will be following closely.
[2019-03-17] MEDS: Multiple Vitamins Tab PO SCH (10:05)
--- NOTE | 2019-03-17 10:12 | CP.PCM.CON ---
History of Present Illness - History of Present Illness History of Present Illness: The patient is a 58 year old female with history of diabetes, hypertension, chronic kidney disease, two strokes, heroin and cocaine abuse who presents for a few month history of lower extremity swelling and pain. She states she has had swelling of her feet, going up to her thigh for the past few months, associated with pain and tightness in her legs from the swelling. She states she also feels short of breath, sometimes at rest and when she walks. She states she has to stop when she walks about 2 blocks, sometimes because of the pain in her legs and sometimes because she feels short of breath. She states she does not have to prop herself up at night, states she uses 1 pillow at night, but also admits to waking up feeling short of breath sometimes. She also complains of 3 month history of abdominal distention rated 7/10, c onstant in nature, with radiation to her sides. Review of Systems - Review of Systems All systems: reviewed and no additional remarkable complaints except (as above.) Past Patient History - Infectious Disease Hx of Infectious Diseases: None - Past Medical History & Family History Past Medical History?: Yes - Past Social History Smoking Status: Light Smoker < 10 Cigarettes Daily - CARDIAC Hx Hypertension: Yes - PULMONARY Hx Tuberculosis: No - NEUROLOGICAL Hx Seizures: No - ENDOCRINE/METABOLIC Hx Diabetes Mellitus Type 2: Yes - HEMATOLOGICAL/ONCOLOGICAL Hx Human Immunodeficiency Virus (HIV): No - MUSCULOSKELETAL/RHEUMATOLOGICAL Hx Falls: No - GENITOURINARY/GYNECOLOGICAL Hx Sexually Transmitted Disorders: No - PSYCHIATRIC Hx Substance Use: Yes - SURGICAL HISTORY Hx Surgeries: No - ANESTHESIA Hx Anesthesia: No Meds Allergies/Adverse Reactions: Allergies Allergy/AdvReac Type Severity Reaction Status Date / Time No Known Allergies Allergy Verified 03/16/19 19:58 - Medications Medications: Current Medications Amlodipine Besylate (Norvasc) 10 mg PO DAILY [facility] Last Admin: 03/17/19 01:19 Dose: 10 mg Aspirin (Aspirin Chewable) 81 mg PO DAILY [facility]RIQUE Dextrose (Dextrose 50% Inj) 0 ml IV STAT PRN; Protocol PRN Reason: Hypoglycemia Protocol Dextrose (Glutose 15) 0 gm PO ONCE PRN; Protocol PRN Reason: Hypoglycemia Protocol Folic Acid (Folic Acid) 1 mg PO DAILY ENRIQUE Furosemide (Lasix) 40 mg IVP BID ENRIQUE Glucagon (Glucagen Diagnostic Kit) 0 mg IM STAT PRN; Protocol PRN Reason: Hypoglycemia Protocol Heparin Sodium (Porcine) (Heparin) 5,000 units SC Q8 ENRIQUE Last Admin: 03/17/19 05:25 Dose: 5,000 units Hydralazine HCl (Apresoline) 25 mg PO TID [facility] Dextrose (Dextrose 5% In Water 1000 Ml) 1,000 mls @ 0 mls/hr IV .Q0M PRN; Protocol PRN Reason: Hypoglycemia Protocol Insulin Human Regular (Novolin R) 0 unit SC ACHS [facility]; Protocol Last Admin: 03/17/19 07:57 Dose: Not Given Lorazepam (Ativan) 2 mg IVP Q4H PRN PRN Reason: Agitation Multivitamins (Hexavitamin) 1 tab PO DAILY [facility] Nicotine (Nicoderm Cq) 1 patch TD DAILY [facility] Pneumococcal Polyvalent Vaccine (Pneumovax 23 Vaccine) 0.5 ml IM .ONCE ONE Stop: 03/18/19 10:01 Thiamine HCl (Vitamin B1 Tab) 100 mg PO DAILY [facility] Physical Exam - Constitutional Appears: Older Than Stated Age - Head Exam Head Exam: NORMAL INSPECTION - Eye Exam Eye Exam: EOMI - ENT Exam ENT Exam: Mucous Membranes Moist - Neck Exam Neck exam: Positive for: Full Rom, Normal Inspection - Respiratory Exam Respiratory Exam: Clear to Auscultation Bilateral - Cardiovascular Exam Cardiovascular Exam: REGULAR RHYTHM - GI/Abdominal Exam GI & Abdominal Exam: Normal Bowel Sounds - Exam External exam: Swelling - Extremities Exam Extremities exam: Positive for: pedal edema, tenderness - Back Exam Back exam: NORMAL INSPECTION - Neurological Exam Neurological exam: Alert, CN II-XII Intact, Normal Gait, Oriented x3, Reflexes Normal - Psychiatric Exam Psychiatric exam: Normal Affect, Normal Mood - Skin Skin Exam: Normal Color Results - Vital Signs Recent Vital Signs: Last Vital Signs Temp 98.4 F 03/17/19 07:00 Pulse 93 H 03/17/19 08:45 Resp 20 03/17/19 07:00 BP 186/96 H 03/17/19 07:00 Pulse Ox 97 03/17/19 07:00 - Labs Result Diagrams: 03/17/19 06:36 03/17/19 06:36 Labs: Laboratory Results - last 24 hr 03/16/19 03/16/19 03/16/19 21:09 21:09 21:09 WBC 5.9 RBC 4.74 Hgb 14.6 Hct 45.5 MCV 95.8 D MCH 30.8 MCHC 32.1 L RDW 15.6 H Plt Count 229 MPV 9.9 Neut % (Auto) 72.0 Lymph % (Auto) 15.5 L Love % (Auto) 6.6 Eos % (Auto) 4.9 H Baso % (Auto) 1.0 Neut # (Auto) 4.2 Lymph # (Auto) 0.9 L Love # (Auto) 0.4 Eos # (Auto) 0.3 Baso # (Auto) 0.1 PT 12.2 INR 1.1 APTT 38.0 H D-Dimer, Quantitative 634 H Sodium 139 Potassium 4.4 Chloride 107 Carbon Dioxide 24 Anion Gap 13 BUN 28 H Creatinine 2.6 H Est GFR ( Amer) 23 Est GFR (Non-Af Amer) 19 Random Glucose 136 H Hemoglobin A1c Calcium 9.2 Phosphorus Magnesium Total Bilirubin 0.5 AST 35 ALT 27 Alkaline Phosphatase 187 H D Troponin I 0.0650 NT-Pro-B Natriuret Pep 42958 H Total Protein 6.6 Albumin 3.6 Globulin 3.0 Albumin/Globulin Ratio 1.2 Triglycerides Cholesterol LDL Cholesterol Direct HDL Cholesterol Urine Color Urine Clarity Urine pH Ur Specific [place] Urine Protein Urine Glucose (UA) Urine Ketones Urine Blood Urine Nitrate Urine Bilirubin Urine Urobilinogen Ur Leukocyte Esterase Urine WBC (Auto) Urine RBC (Auto) Ur Squamous Epith Cells Hyaline Casts Urine HCG, Qual Urine Opiates Screen Urine Methadone Screen Ur Barbiturates Screen Ur Phencyclidine Scrn Ur Amphetamines Screen U Benzodiazepines Scrn U Oth Cocaine Metabols U Cannabinoids Screen Alcohol, Quantitative < 10 Hepatitis A IgM Ab Hep Bs Antigen Hep B Core IgM Ab Hepatitis C Antibody 03/16/19 03/16/19 03/17/19 22:40 22:40 06:36 WBC 6.5 RBC 4.49 Hgb 13.8 Hct 42.6 MCV 94.9 MCH 30.6 MCHC 32.3 L RDW 15.6 H Plt Count 198 MPV 10.2 Neut % (Auto) 66.2 Lymph % (Auto) 18.4 L Love % (Auto) 7.6 Eos % (Auto) 6.7 H Baso % (Auto) 1.1 Neut # (Auto) 4.3 Lymph # (Auto) 1.2 Love # (Auto) 0.5 Eos # (Auto) 0.4 Baso # (Auto) 0.1 PT INR APTT D-Dimer, Quantitative Sodium Potassium Chloride Carbon Dioxide Anion Gap BUN Creatinine Est GFR ( Amer) Est GFR (Non-Af Amer) Random Glucose Hemoglobin A1c Calcium Phosphorus Magnesium Total Bilirubin AST ALT Alkaline Phosphatase Troponin I NT-Pro-B Natriuret Pep Total Protein Albumin Globulin Albumin/Globulin Ratio Triglycerides Cholesterol LDL Cholesterol Direct HDL Cholesterol Urine Color Straw Urine Clarity Clear Urine pH 6.0 Ur Specific [place] 1.005 Urine Protein 2+ H Urine Glucose (UA) 1+ Urine Ketones Negative Urine Blood 1+ H Urine Nitrate Negative Urine Bilirubin Negative Urine Urobilinogen Normal Ur Leukocyte Esterase Trace Urine WBC (Auto) 17 H Urine RBC (Auto) 7 H Ur Squamous Epith Cells 1 Hyaline Casts 0-2 Urine HCG, Qual Negative Urine Opiates Screen Positive H Urine Methadone Screen Negative Ur Barbiturates Screen Negative Ur Phencyclidine Scrn Negative Ur Amphetamines Screen Negative U Benzodiazepines Scrn Negative U Oth Cocaine Metabols Positive H U Cannabinoids Screen Negative Alcohol, Quantitative Hepatitis A IgM Ab Hep Bs Antigen Hep B Core IgM Ab Hepatitis C Antibody 03/17/19 03/17/19 03/17/19 06:36 06:36 06:36 WBC RBC Hgb Hct MCV MCH MCHC RDW Plt Count MPV Neut % (Auto) Lymph % (Auto) Love % (Auto) Eos % (Auto) Baso % (Auto) Neut # (Auto) Lymph # (Auto) Love # (Auto) Eos # (Auto) Baso # (Auto) PT INR APTT D-Dimer, Quantitative Sodium 136 Potassium 3.8 Chloride 107 Carbon Dioxide 25 Anion Gap 8 L BUN 30 H Creatinine 2.6 H Est GFR ( Amer) 23 Est GFR (Non-Af Amer) 19 Random Glucose 104 D Hemoglobin A1c 6.0 Calcium 8.6 Phosphorus 3.4 Magnesium 1.7 Total Bilirubin 0.4 AST 28 ALT 18 Alkaline Phosphatase 158 H Troponin I NT-Pro-B Natriuret Pep Total Protein 5.6 L Albumin 3.1 L Globulin 2.5 Albumin/Globulin Ratio 1.2 Triglycerides 92 D Cholesterol 148 LDL Cholesterol Direct 86 HDL Cholesterol 68 Urine Color Urine Clarity Urine pH Ur Specific [place] Urine Protein Urine Glucose (UA) Urine Ketones Urine Blood Urine Nitrate Urine Bilirubin Urine Urobilinogen Ur Leukocyte Esterase Urine WBC (Auto) Urine RBC (Auto) Ur Squamous Epith Cells Hyaline Casts Urine HCG, Qual Urine Opiates Screen Urine Methadone Screen Ur Barbiturates Screen Ur Phencyclidine Scrn Ur Amphetamines Screen U Benzodiazepines Scrn U Oth Cocaine Metabols U Cannabinoids Screen Alcohol, Quantitative Hepatitis A IgM Ab Negative Hep Bs Antigen Negative Hep B Core IgM Ab Negative Hepatitis C Antibody Negative - EKG Data EKG Interpreted by: Myself EKG shows normal: Sinus rhythm (rad, apb, pvc,) Assessment & Plan - Assessment and Plan (Free Text) Assessment: 1. pt has lower ext edema, and there are many potential causes. She also has abdominal distension: Must r/o pulmonary HTN, also pericardial constriction. Echo is advised. will recommend other tests, treatment after echo. 2. HTN: increase hydralazine to 50 tid, begin beta bc. IF bp still high, consider clonidine if pt is not bradycardic, but if she is, consider cardura and/or minoxidil 3. CXR is not conclusive for chf, and bnp elevation is not specific for chf in the setting of ckd due to slowed clearance. But examining patient, LA pressure is most likely elevated.
--- NOTE | 2019-03-17 10:53 | US ---
Date of service: 03/17/2019 HISTORY: Abdominal distension COMPARISON: None. TECHNIQUE: Grayscale imaging was performed. FINDINGS: LIVER: Measures 19.0 cm. There is diffuse increased echogenicity of the liver parenchyma with nodular contour. No mass. No intrahepatic bile duct dilatation. GALLBLADDER: The gallbladder is contracted. There are no gallstones, wall thickening or pericholecystic fluid. The sonographic Martinez's sign is negative. COMMON BILE DUCT: Measures 9.0 mm. No stones. Mild diffuse dilatation. PANCREAS: Unremarkable as visualized. No mass. No ductal dilatation. RIGHT KIDNEY: Measures 10.0cm. Diffuse increased echogenicity. No calculus, mass, or hydronephrosis. LEFT KIDNEY: Measures 9.4cm. Diffuse increased echogenicity. No calculus, mass, or hydronephrosis. There is a 1.4 x 1.3 x 1.3 cm simple cyst in the lower pole. SPLEEN: Normal in size and contour. No mass. AORTA: No aneurysmal dilatation. IVC: Unremarkable. OTHER FINDINGS: None. IMPRESSION: 1. Mild hepatomegaly. Diffuse increased echogenicity in the liver may reflect hepatic steatosis however parenchymal infectious/ inflammatory etiologies cannot be entirely excluded. Clinical and laboratory correlation is advised. Nodular contour of the liver could represent underlying cirrhosis. 2. Medical renal disease. 3. Gallbladder is contracted. No cholelithiasis. Mild diffuse dilatation of the common bile duct without evidence for choledocholithiasis. If clinically indicated correlation with CT scan/MRCP may be performed to evaluate for distal obstruction.
--- NOTE | 2019-03-17 11:45 | PCM.PSYCH ---
Initial Psychiatric Evaluation - Initial Psychiatric Evaluation Type of Admission: Voluntary Legal Status: Capacity Chief Complaint (in patient's own words): I'm here for leg swelling, and want help with withdrawal symptoms History of Present Illness and Precipitating Events: Patient is a 58 year old single female, living alone and unemployed requesting help for withdrawal from heroin. Patient reports heroin use(intranasal), 6-8 bags daily, occasionally smoking cocaine, and drinking 2-3 cans of beer daily. Patient reports last use just prior to coming into ED for evaluation of worsening LE edema, and currently reports withdrawal symptoms of excessive yawning, rhinorrhea, diarrhea and difficulty sleeping. Patient reports several attempts at detox in the past, denies inpatient psychiatric hospitalizations, psychiatric diagnoses or medication use, SI/HI. PsychHx: denies PMHx: HTN, DM, CKD FamPsychHx: sibling with bipolar d/o and substance abuse d/o Current Medications: Active Medications Generic Name Dose Route Start Last Admin Trade Name Freq PRN Reason Stop Dose Admin Amlodipine Besylate 10 mg 03/17/19 01:00 03/17/19 10:05 Norvasc PO 10 mg DAILY [facility] Administration Aspirin 81 mg 03/17/19 10:00 03/17/19 10:06 Aspirin Chewable PO 81 mg DAILY [facility] Administration Dextrose 0 ml 03/17/19 01:00 Dextrose 50% Inj IV STAT PRN Hypoglycemia Protocol Protocol Dextrose 0 gm 03/17/19 01:00 Glutose 15 PO ONCE PRN Hypoglycemia Protocol Protocol Folic Acid 1 mg 03/17/19 10:00 03/17/19 10:05 Folic Acid PO 1 mg DAILY [facility] Administration Furosemide 40 mg 03/17/19 10:00 03/17/19 10:06 Lasix IVP 40 mg BID ENRIQUE Administration Glucagon 0 mg 03/17/19 01:00 Glucagen Diagnostic Kit IM STAT PRN Hypoglycemia Protocol Protocol Heparin Sodium (Porcine) 5,000 units 03/17/19 06:00 03/17/19 05:25 Heparin SC 5,000 units Q8 ENRIQUE Administration Hydralazine HCl 50 mg 03/17/19 14:00 Apresoline PO TID [facility] Dextrose 1,000 mls @ 0 mls/hr 03/17/19 01:00 Dextrose 5% In Water 1000 Ml IV .Q0M PRN Hypoglycemia Protocol Protocol Per Protocol Insulin Human Regular 0 unit 03/17/19 07:30 03/17/19 07:57 Novolin R SC Not Given ACHS [facility] Protocol Lorazepam 2 mg 03/17/19 00:54 Ativan IVP Q4H PRN Agitation Methadone HCl 20 mg 03/17/19 11:42 Methadone PO 03/17/19 11:43 ONCE ONE Metoprolol Tartrate 25 mg 03/17/19 10:15 03/17/19 10:18 Lopressor PO 25 mg BID ENRIQUE Administration Multivitamins 1 tab 03/17/19 10:00 03/17/19 10:05 Hexavitamin PO 1 tab DAILY [facility] Administration Nicotine 1 patch 03/17/19 10:00 03/17/19 10:10 Nicoderm Cq TD 1 patch DAILY [facility] Administration Pneumococcal Polyvalent Vaccine 0.5 ml 03/18/19 10:00 Pneumovax 23 Vaccine IM 03/18/19 10:01 .ONCE ONE Thiamine HCl 100 mg 03/17/19 10:00 03/17/19 10:05 Vitamin B1 Tab PO 100 mg DAILY [facility] Administration Trazodone HCl 100 mg 03/17/19 22:00 Desyrel PO HS [facility] Past Psychiatric History - Past Psychiatric History Pertinent Medical Hx (Current Medical&Sleep Prob, Allergies): Allergies Allergy/AdvReac Type Severity Reaction Status Date / Time No Known Allergies Allergy Verified 03/16/19 19:58 amLODIPine [Norvasc] 10 mg PO DAILY #30 tab 05/16/17 Docusate [Colace] 100 mg PO BID #60 cap 12/27/17 Lisinopril [Zestril] 20 mg PO DAILY #30 tab 12/27/17 QUEtiapine [SEROquel] 50 mg PO HS #30 tab 12/27/17 hydroCHLOROthiazide [Microzide] 12.5 mg PO DAILY #30 cap 12/27/17 traZODone [Desyrel] 50 mg PO HS PRN #30 tab 12/27/17 Aspirin [Ecotrin] 81 mg PO DAILY #30 tabec 04/17/18 Chlorthalidone [Hygroton] 25 mg PO DAILY #30 tab 04/17/18 Ergocalciferol [Drisdol 50,000 Intl Units Cap] 1 cap PO Q7D #4 cap 04/17/18 Lisinopril [Zestril] 40 mg PO DAILY #30 tab 04/17/18 Multivitamins [Hexavitamin] 1 tab PO DAILY #30 tab 04/17/18 Gabapentin [Neurontin] 300 mg PO TID #90 cap 07/01/18 hydrALAZINE [Apresoline] 25 mg PO Q8 #90 tab 07/01/18 Review of Systems - EENT Nose/Mouth/Throat: Nasal Discharge - Cardiovascular Cardiovascular: Leg Edema - Gastrointestinal Gastrointestinal: Cramping, Diarrhea - Psychiatric Psychiatric: Abnormal Sleep Pattern. absent: Anxiety, Depression, Homicidal Id eation, Suicidal Ideation Mental Status Examination - Personal Presentation Personal Presentation: Looks stated age - Affect Affect: Constricted - Motor Activity Motor Activity: Calm - Reliability in Providing Information Reliability in Providing Information: Good - Speech Speech: Organized - Mood Mood: Neutral - Formal Thought Process Formal Thought Process: No Impairment - Cognitive Functions Orientation: Person, Place, Situation, Time Sensorium: Alert Attention/Concentration: Attentive Estimate of Intelligence: Average Judgement: Imparied, as evidence by: Lack of insight into illness (repeated detox with failure to follow up) - Risk Risk: Withdrawal, Diminished functioning - Strength & Assets Inventory Strength & Assets Inventory: Cooperative - Limitations Limitations: Living alone DSM 5 DX - DSM 5 DSM 5 Diagnosis: Opioid withdrawal Opioid use disorder, severe Cocaine use disorder, moderate Alcohol use disorder, moderate - Recommended/Plan of Treatment Treatment Recommendations and Plan of Treatment: Taper with Methadone PRN medications ativan Trazodone HS Medical care per primary All risks, benefits and treatment alternatives of medications discussed; patient understands and agrees Supportive therapy and psycho-education [place] for abstinence CBT for relapse prevention Encourage MAT Refer to rehab or IOP, and self-help groups Teach healthy lifestyle methods(diet, exercise, meditation) Smoking cessation with Nicotine patch Discussed with Dr. Garrison -Danay Bone, PGY-1 31 min Projected ELOS: 3 days - Smoking Cessation Smoking Cessation Initiated: Yes
--- NOTE | 2019-03-17 14:12 | VASCLAB ---
Date of service: 03/17/2019 PROCEDURE: Lower Extremity Venous Duplex Exam. HISTORY: bilateral lower extremity edema PRIORS: None. TECHNIQUE: Bilateral common femoral, femoral, popliteal and posterior tibial, peroneal and great saphenous veins were evaluated. Flow was assessed with color Doppler, compressibility, assessment of phasic flow and augmentation response. Report prepared by Olivier Berman, T FINDINGS: RIGHT: 1. Common Femoral Vein: 1.1. Compressibility - Fully compressible: Thrombus - None : Flow - Phasic: Augmentation -Normal: Reflux - None. 2. Femoral Vein: 2.1. Compressibility - Fully compressible: Thrombus - None : Flow - Phasic: Augmentation -Normal: Reflux - None. 3. Popliteal Vein: 3.1. Compressibility - Fully compressible: Thrombus - None : Flow - Phasic: Augmentation -Normal: Reflux - None. 4. Posterior Tibial Vein: 4.1. Compressibility - Fully compressible: Thrombus - None: Flow - Phasic: Augmentation -Normal: Reflux - None. 5. Peroneal Vein: 5.1. Compressibility - Fully compressible: Thrombus - None: Flow - Phasic: Augmentation -Normal: Reflux - None. 6. Great Saphenous Vein: 6.1. Compressibility - Fully compressible: Thrombus - None: Flow - Phasic: Augmentation - Normal: Reflux - None. LEFT: 1. Common Femoral Vein: 1.1. Compressibility - Fully compressible: Thrombus - None: Flow - Phasic: Augmentation -Normal: Reflux - None. 2. Femoral Vein: 2.1. Compressibility - Fully compressible: Thrombus - None: Flow - Phasic: Augmentation -Normal: Reflux - None. 3. Popliteal Vein: 3.1. Compressibility - Fully compressible: Thrombus - None : Flow - Phasic: Augmentation -Normal: Reflux - None. 4. Posterior Tibial Vein: 4.1. Compressibility - Fully compressible: Thrombus - None: Flow - Phasic: Augmentation -Normal: Reflux - None. 5. Peroneal Vein: 5.1. Compressibility - Fully compressible: Thrombus - None: Flow - Phasic: Augmentation -Normal: Reflux - None. 6. Great Saphenous Vein: 6.1. Compressibility - Fully compressible: Thrombus - None: Flow - Phasic: Augmentation - Normal: Reflux - None. OTHER FINDINGS: None significant. IMPRESSION: Right: No evidence of deep or superficial vein thrombosis of the right lower extremity. Normal valve function noted of the right side. Left: No evidence of deep or superficial vein thrombosis of the left lower extremity. Normal valve function noted of the left side.
[2019-03-17] MEDS ORDERED: Albuterol-Ipratrop 3 mg / 0.5 (3 ml) UD INH PRN (15:52)
--- NOTE | 2019-03-17 17:15 | CARD ---
APPROVED REPORT Date of service: 03/17/2019 EXAM: Two-dimensional and M-mode echocardiogram with Doppler and color Doppler. Other Information Quality : GoodRhythm : INDICATION CVA/TIA Dyspnea Peripheral Edema Congestive Heart Failure substance abuse RISK FACTORS Hypertension Hyperlipidemia Diabetes 2D DIMENSIONS IVSd1.2 (0.7-1.1cm)LVDd4.3 (3.9-5.9cm) PWd1.5 (0.7-1.1cm)LA [id number] (18-58mL) LVDs2.7 (2.5-4.0cm)FS (%) 37.7 % LVEF (%)66.0 (>50%)LVEF (Travis's)62 % M-Mode DIMENSIONS Left Atrium (MM)3.59 (2.5-4.0cm)IVSd1.14 (0.7-1.1cm) Aortic Root2.95 (2.2-3.7cm)LVDd4.88 (4.0-5.6cm) Aortic Cusp Exc.2.09 (1.5-2.0cm)PWd1.00 (0.7-1.1cm) FS (%) 35 %LVDs3.19 (2.0-3.8cm) LVEF (%)64 (>50%) Mitral Valve MV E Pinyianq462.1cm/sMV A Mtkfgbox36.6cm/sE/A ratio2.1 TDI Lateral E' Peak V7.13cm/sMedial E' Peak V5.25cm/sE/Lateral E'14.5 E/Medial E'19.6 Tricuspid Valve TR Peak [id number]/sTR Peak [id number] LEFT VENTRICLE The left ventricle is normal size. There is moderate to severe concentric left ventricular hypertrophy. The left ventricular function is normal. The left ventricular ejection fraction is within the normal range. There is normal LV segmental wall motion. The left ventricular diastolic function is normal. RIGHT VENTRICLE The right ventricle is normal size. There is normal right ventricular wall thickness. The right ventricular systolic function is normal. ATRIA The left atrium size is normal. The right atrium size is normal. AORTIC VALVE The aortic valve is mildly thickened. There is trace to mild aortic regurgitation. There is no aortic valvular stenosis. MITRAL VALVE The mitral valve is mildly thickened. There is no mitral valve stenosis. There is no mitral valve regurgitation noted. TRICUSPID VALVE There is moderate tricuspid regurgitation. There is severe pulmonary hypertension. PULMONIC VALVE There is mild pulmonic valvular regurgitation. GREAT VESSELS The aortic root is normal in size. The IVC is dilated. <Conclusion> There is moderate to severe concentric left ventricular hypertrophy. The left ventricular function is normal. The left ventricular ejection fraction is within the normal range. There is normal LV segmental wall motion. The left ventricular diastolic function is normal. There is trace to mild aortic regurgitation. There is moderate tricuspid regurgitation. There is severe pulmonary hypertension. There is mild pulmonic valvular regurgitation.
--- NOTE | 2019-03-17 17:56 | CP.PCM.CON ---
<Isela Mohr - Last Filed: 03/17/19 18:09> History of Present Illness - History of Present Illness History of Present Illness: HPB surgery: Batista Patient is a 58 yr old female PMH CKD, HTN, DM, heroin and cocaine abuse who has been admitted to [facility] for increased fatigue SOB and LE swelling. HPB surgery was asked to evaluate for possible cirrhosis. Patient endorses mild a bdominal pain and distention. 12 point ROS otherwise negative PMH: CKD, HTN, DM, cocaine and heroin abuse PSH: denies Social: cocaine and heroin abuse, ETOH use, current smoker All: NKDA Review of Systems - Review of Systems All systems: reviewed and no additional remarkable complaints except (as per HPI) Past Patient History - Infectious Disease Hx of Infectious Diseases: None - Past Medical History & Family History Past Medical History?: Yes - Past Social History Smoking Status: Light Smoker < 10 Cigarettes Daily - CARDIAC Hx Hypertension: Yes - PULMONARY Hx Tuberculosis: No - NEUROLOGICAL Hx Seizures: No - ENDOCRINE/METABOLIC Hx Diabetes Mellitus Type 2: Yes - HEMATOLOGICAL/ONCOLOGICAL Hx Human Immunodeficiency Virus (HIV): No - MUSCULOSKELETAL/RHEUMATOLOGICAL Hx Falls: No - GENITOURINARY/GYNECOLOGICAL Hx Sexually Transmitted Disorders: No - PSYCHIATRIC Hx Substance Use: Yes - SURGICAL HISTORY Hx Surgeries: No - ANESTHESIA Hx Anesthesia: No Meds Allergies/Adverse Reactions: Allergies Allergy/AdvReac Type Severity Reaction Status Date / Time No Known Allergies Allergy Verified 03/16/19 19:58 - Medications Medications: Current Medications Albuterol/Ipratropium (Duoneb 3 Mg/0.5 Mg (3 Ml) Ud) 3 ml INH RQ6 PRN PRN Reason: Shortness of Breath Amlodipine Besylate (Norvasc) 10 mg PO DAILY [facility] Last Admin: 03/17/19 10:05 Dose: 10 mg Dextrose (Dextrose 50% Inj) 0 ml IV STAT PRN; Protocol PRN Reason: Hypoglycemia Protocol Dextrose (Glutose 15) 0 gm PO ONCE PRN; Protocol PRN Reason: Hypoglycemia Protocol Folic Acid (Folic Acid) 1 mg PO DAILY [facility] Last Admin: 03/17/19 10:05 Dose: 1 mg Furosemide (Lasix) 40 mg IVP BID [facility] Last Admin: 03/17/19 17:44 Dose: 40 mg Glucagon (Glucagen Diagnostic Kit) 0 mg IM STAT PRN; Protocol PRN Reason: Hypoglycemia Protocol Heparin Sodium (Porcine) (Heparin) 5,000 units SC Q8 [facility] Last Admin: 03/17/19 13:00 Dose: 5,000 units Hydralazine HCl (Apresoline) 50 mg PO TID [facility] Last Admin: 03/17/19 17:44 Dose: 50 mg Dextrose (Dextrose 5% In Water 1000 Ml) 1,000 mls @ 0 mls/hr IV .Q0M PRN; Protocol PRN Reason: Hypoglycemia Protocol Insulin Human Regular (Novolin R) 0 unit SC ACHS [facility]; Protocol Last Admin: 03/17/19 16:30 Dose: Not Given Lorazepam (Ativan) 2 mg IVP Q4H PRN PRN Reason: Agitation Metoprolol Tartrate (Lopressor) 25 mg PO BID [facility] Last Admin: 03/17/19 17:43 Dose: 25 mg Multivitamins (Hexavitamin) 1 tab PO DAILY [facility] Last Admin: 03/17/19 10:05 Dose: 1 tab Nicotine (Nicoderm Cq) 1 patch TD DAILY [facility] Last Admin: 03/17/19 10:10 Dose: 1 patch Pneumococcal Polyvalent Vaccine (Pneumovax 23 Vaccine) 0.5 ml IM .ONCE ONE Stop: 03/18/19 10:01 Sennosides (Senokot Tab) 8.6 mg PO DAILY [facility] Thiamine HCl (Vitamin B1 Tab) 100 mg PO DAILY [facility] Last Admin: 03/17/19 10:05 Dose: 100 mg Trazodone HCl (Desyrel) 100 mg PO HS [facility] Physical Exam - Constitutional Appears: Well, Non-toxic, No Acute Distress - Head Exam Head Exam: ATRAUMATIC, NORMOCEPHALIC - Eye Exam Eye Exam: EOMI, Scleral icterus - ENT Exam ENT Exam: Mucous Membranes Moist - Respiratory Exam Respiratory Exam: NORMAL BREATHING PATTERN - Cardiovascular Exam Cardiovascular Exam: REGULAR RHYTHM - GI/Abdominal Exam GI & Abdominal Exam: Distended, Soft. absent: Guarding, Tenderness - Extremities Exam Extremities exam: Negative for: calf tenderness, pedal edema - Neurological Exam Neurological exam: Alert, Oriented x3 - Psychiatric Exam Psychiatric exam: Normal Affect, Normal Mood - Skin Skin Exam: Dry, Intact, Normal Color Results - Vital Signs Recent Vital Signs: Last Vital Signs Temp 98.4 F 03/17/19 07:00 Pulse 69 04/24/19 17:41 Resp 20 03/17/19 07:00 BP 165/97 H 03/17/19 17:44 Pulse Ox 97 03/17/19 12:00 - Labs Result Diagrams: 03/17/19 06:36 03/17/19 06:36 Labs: Laboratory Results - last 24 hr 03/16/19 03/16/19 03/16/19 21:09 21:09 21:09 WBC 5.9 RBC 4.74 Hgb 14.6 Hct 45.5 MCV 95.8 D MCH 30.8 MCHC 32.1 L RDW 15.6 H Plt Count 229 MPV 9.9 Neut % (Auto) 72.0 Lymph % (Auto) 15.5 L [place] % (Auto) 6.6 Eos % (Auto) 4.9 H Baso % (Auto) 1.0 Neut # (Auto) 4.2 Lymph # (Auto) 0.9 L [place] # (Auto) 0.4 Eos # (Auto) 0.3 Baso # (Auto) 0.1 PT 12.2 INR 1.1 APTT 38.0 H D-Dimer, Quantitative 634 H Sodium 139 Potassium 4.4 Chloride 107 Carbon Dioxide 24 Anion Gap 13 BUN 28 H Creatinine 2.6 H Est GFR ( Amer) 23 Est GFR (Non-Af Amer) 19 POC Glucose (mg/dL) Random Glucose 136 H Hemoglobin A1c Calcium 9.2 Phosphorus Magnesium Total Bilirubin 0.5 AST 35 ALT 27 Alkaline Phosphatase 187 H D Troponin I 0.0650 NT-Pro-B Natriuret Pep 42466 H Total Protein 6.6 Albumin 3.6 Globulin 3.0 Albumin/Globulin Ratio 1.2 Triglycerides Cholesterol LDL Cholesterol Direct HDL Cholesterol Urine Color Urine Clarity Urine pH Ur Specific [place] Urine Protein Urine Glucose (UA) Urine Ketones Urine Blood Urine Nitrate Urine Bilirubin Urine Urobilinogen Ur Leukocyte Esterase Urine WBC (Auto) Urine RBC (Auto) Ur Squamous Epith Cells Hyaline Casts Urine HCG, Qual Urine Opiates Screen Urine Methadone Screen Ur Barbiturates Screen Ur Phencyclidine Scrn Ur Amphetamines Screen U Benzodiazepines Scrn U Oth Cocaine Metabols U Cannabinoids Screen Alcohol, Quantitative < 10 Hepatitis A IgM Ab Hep Bs Antigen Hep B Core IgM Ab Hepatitis C Antibody HIV 1&2 Antibody Screen 03/16/19 03/16/19 03/17/19 22:40 22:40 06:36 WBC 6.5 RBC 4.49 Hgb 13.8 Hct 42.6 MCV 94.9 MCH 30.6 MCHC 32.3 L RDW 15.6 H Plt Count 198 MPV 10.2 Neut % (Auto) 66.2 Lymph % (Auto) 18.4 L [place] % (Auto) 7.6 Eos % (Auto) 6.7 H Baso % (Auto) 1.1 Neut # (Auto) 4.3 Lymph # (Auto) 1.2 [place] # (Auto) 0.5 Eos # (Auto) 0.4 Baso # (Auto) 0.1 PT INR APTT D-Dimer, Quantitative Sodium Potassium Chloride Carbon Dioxide Anion Gap BUN Creatinine Est GFR ( Amer) Est GFR (Non-Af Amer) POC Glucose (mg/dL) Random Glucose Hemoglobin A1c Calcium Phosphorus Magnesium Total Bilirubin AST ALT Alkaline Phosphatase Troponin I NT-Pro-B Natriuret Pep Total Protein Albumin Globulin Albumin/Globulin Ratio Triglycerides Cholesterol LDL Cholesterol Direct HDL Cholesterol Urine Color Straw Urine Clarity Clear Urine pH 6.0 Ur Specific [place] 1.005 Urine Protein 2+ H Urine Glucose (UA) 1+ Urine Ketones Negative Urine Blood 1+ H Urine Nitrate Negative Urine Bilirubin Negative Urine Urobilinogen Normal Ur Leukocyte Esterase Trace Urine WBC (Auto) 17 H Urine RBC (Auto) 7 H Ur Squamous Epith Cells 1 Hyaline Casts 0-2 Urine HCG, Qual Negative Urine Opiates Screen Positive H Urine Methadone Screen Negative Ur Barbiturates Screen Negative Ur Phencyclidine Scrn Negative Ur Amphetamines Screen Negative U Benzodiazepines Scrn Negative U Oth Cocaine Metabols Positive H U Cannabinoids Screen Negative Alcohol, Quantitative Hepatitis A IgM Ab Hep Bs Antigen Hep B Core IgM Ab Hepatitis C Antibody HIV 1&2 Antibody Screen 03/17/19 03/17/19 03/17/19 06:36 06:36 06:36 WBC RBC Hgb Hct MCV MCH MCHC RDW Plt Count MPV Neut % (Auto) Lymph % (Auto) [place] % (Auto) Eos % (Auto) Baso % (Auto) Neut # (Auto) Lymph # (Auto) [place] # (Auto) Eos # (Auto) Baso # (Auto) PT INR APTT D-Dimer, Quantitative Sodium 136 Potassium 3.8 Chloride 107 Carbon Dioxide 25 Anion Gap 8 L BUN 30 H Creatinine 2.6 H Est GFR ( Amer) 23 Est GFR (Non-Af Amer) 19 POC Glucose (mg/dL) Random Glucose 104 D Hemoglobin A1c 6.0 Calcium 8.6 Phosphorus 3.4 Magnesium 1.7 Total Bilirubin 0.4 AST 28 ALT 18 Alkaline Phosphatase 158 H Troponin I NT-Pro-B Natriuret Pep Total Protein 5.6 L Albumin 3.1 L Globulin 2.5 Albumin/Globulin Ratio 1.2 Triglycerides 92 D Cholesterol 148 LDL Cholesterol Direct 86 HDL Cholesterol 68 Urine Color Urine Clarity Urine pH Ur Specific [place] Urine Protein Urine Glucose (UA) Urine Ketones Urine Blood Urine Nitrate Urine Bilirubin Urine Urobilinogen Ur Leukocyte Esterase Urine WBC (Auto) Urine RBC (Auto) Ur Squamous Epith Cells Hyaline Casts Urine HCG, Qual Urine Opiates Screen Urine Methadone Screen Ur Barbiturates Screen Ur Phencyclidine Scrn Ur Amphetamines Screen U Benzodiazepines Scrn U Oth Cocaine Metabols U Cannabinoids Screen Alcohol, Quantitative Hepatitis A IgM Ab Negative Hep Bs Antigen Negative Hep B Core IgM Ab Negative Hepatitis C Antibody Negative HIV 1&2 Antibody Screen 03/17/19 03/17/19 11:09 12:30 WBC RBC Hgb Hct MCV MCH MCHC RDW Plt Count MPV Neut % (Auto) Lymph % (Auto) [place] % (Auto) Eos % (Auto) Baso % (Auto) Neut # (Auto) Lymph # (Auto) [place] # (Auto) Eos # (Auto) Baso # (Auto) PT INR APTT D-Dimer, Quantitative Sodium Potassium Chloride Carbon Dioxide Anion Gap BUN Creatinine Est GFR ( Amer) Est GFR (Non-Af Amer) POC Glucose (mg/dL) 169 H Random Glucose Hemoglobin A1c Calcium Phosphorus Magnesium Total Bilirubin AST ALT Alkaline Phosphatase Troponin I NT-Pro-B Natriuret Pep Total Protein Albumin Globulin Albumin/Globulin Ratio Triglycerides Cholesterol LDL Cholesterol Direct HDL Cholesterol Urine Color Urine Clarity Urine pH Ur Specific [place] Urine Protein Urine Glucose (UA) Urine Ketones Urine Blood Urine Nitrate Urine Bilirubin Urine Urobilinogen Ur Leukocyte Esterase Urine WBC (Auto) Urine RBC (Auto) Ur Squamous Epith Cells Hyaline Casts Urine HCG, Qual Urine Opiates Screen Urine Methadone Screen Ur Barbiturates Screen Ur Phencyclidine Scrn Ur Amphetamines Screen U Benzodiazepines Scrn U Oth Cocaine Metabols U Cannabinoids Screen Alcohol, Quantitative Hepatitis A IgM Ab Hep Bs Antigen Hep B Core IgM Ab Hepatitis C Antibody HIV 1&2 Antibody Screen Negative Assessment & Plan - Assessment and Plan (Free Text) Assessment: 58 yr old female with PMH heroin and cocaine abuse, HTN, DM, CKD needing evaluation for liver cirrhosis Plan: - us revealing increased echogenicity and nodular contour may suggest cirrhosis - LFT, Bili, Plt and albumin not suggestive of severe cirrhosis - pt may need further evaluation and surveillance in the future - further recs per Dr. Wood, PGY 1 - Date & Time Date: 03/17/19 Time: 17:56 <Nba Chavez - Last Filed: 03/18/19 15:43> Meds - Medications Medications: Current Medications Albuterol/Ipratropium (Duoneb 3 Mg/0.5 Mg (3 Ml) Ud) 3 ml INH RQ6 PRN PRN Reason: Shortness of Breath Amlodipine Besylate (Norvasc) 10 mg PO DAILY [facility] Last Admin: 03/18/19 09:42 Dose: 10 mg Carvedilol (Coreg) 6.25 mg PO BID [facility] Last Admin: 03/18/19 09:41 Dose: 6.25 mg Dextrose (Dextrose 50% Inj) 0 ml IV STAT PRN; Protocol PRN Reason: Hypoglycemia Protocol Dextrose (Glutose 15) 0 gm PO ONCE PRN; Protocol PRN Reason: Hypoglycemia Protocol Folic Acid (Folic Acid) 1 mg PO DAILY [facility] Last Admin: 03/18/19 09:42 Dose: 1 mg Furosemide (Lasix) 40 mg IVP BID [facility] Last Admin: 03/18/19 09:43 Dose: 40 mg Glucagon (Glucagen Diagnostic Kit) 0 mg IM STAT PRN; Protocol PRN Reason: Hypoglycemia Protocol Heparin Sodium (Porcine) (Heparin) 5,000 units SC Q8 [facility] Last Admin: 03/18/19 13:38 Dose: 5,000 units Hydralazine HCl (Apresoline) 50 mg PO TID [facility] Last Admin: 03/18/19 14:01 Dose: 50 mg Dextrose (Dextrose 5% In Water 1000 Ml) 1,000 mls @ 0 mls/hr IV .Q0M PRN; Protocol PRN Reason: Hypoglycemia Protocol Insulin Human Regular (Novolin R) 0 unit SC ACHS [facility]; Protocol Last Admin: 03/18/19 12:00 Dose: Not Given Lorazepam (Ativan) 1 mg IVP Q6H PRN PRN Reason: Agitation Methadone HCl (Methadone) 15 mg PO Q24H [facility]; Taper Stop: 03/21/19 09:59 Last Admin: 03/18/19 09:41 Dose: 15 mg Multivitamins (Hexavitamin) 1 tab PO DAILY [facility] Last Admin: 03/18/19 09:42 Dose: 1 tab Nicotine (Nicoderm Cq) 1 patch TD DAILY [facility] Last Admin: 03/18/19 11:25 Dose: 1 patch Sennosides (Senokot Tab) 8.6 mg PO DAILY [facility] Last Admin: 03/18/19 09:42 Dose: 8.6 mg Thiamine HCl (Vitamin B1 Tab) 100 mg PO DAILY [facility] Last Admin: 03/18/19 09:42 Dose: 100 mg Trazodone HCl (Desyrel) 100 mg PO HS [facility] Last Admin: 03/17/19 21:50 Dose: 100 mg Results - Vital Signs Recent Vital Signs: Last Vital Signs Temp 98.1 F 03/18/19 07:00 Pulse 64 03/18/19 07:00 Resp 20 03/18/19 07:00 BP 168/72 H 03/18/19 09:43 Pulse Ox 98 03/18/19 07:00 - Labs Result Diagrams: 03/18/19 11:07 03/18/19 11:07 Labs: Laboratory Results - last 24 hr 03/17/19 03/18/19 03/18/19 05:59 06:14 11:07 WBC RBC Hgb Hct MCV MCH MCHC RDW Plt Count MPV Neut % (Auto) Lymph % (Auto) [place] % (Auto) Eos % (Auto) Baso % (Auto) Neut # (Auto) Lymph # (Auto) [place] # (Auto) Eos # (Auto) Baso # (Auto) Sodium Potassium Chloride Carbon Dioxide Anion Gap BUN Creatinine Est GFR ( Amer) Est GFR (Non-Af Amer) POC Glucose (mg/dL) 125 H 93 Random Glucose Serum Osmolality 311 H Calcium Phosphorus Magnesium Total Bilirubin AST ALT Alkaline Phosphatase Total Protein Albumin Globulin Albumin/Globulin Ratio Complement C3 Complement C4 03/18/19 03/18/19 03/18/19 11:07 11:07 11:07 WBC 5.2 RBC 4.26 Hgb 13.3 Hct 41.0 MCV 96.3 MCH 31.3 H MCHC 32.4 L RDW 15.6 H Plt Count 200 MPV 10.4 Neut % (Auto) 70.4 Lymph % (Auto) 13.9 L [place] % (Auto) 7.3 Eos % (Auto) 7.0 H Baso % (Auto) 1.4 Neut # (Auto) 3.7 Lymph # (Auto) 0.7 L [place] # (Auto) 0.4 Eos # (Auto) 0.4 Baso # (Auto) 0.1 Sodium 137 Potassium 3.6 Chloride 104 Carbon Dioxide 26 Anion Gap 10 BUN 32 H Creatinine 2.8 H Est GFR ( Amer) 21 Est GFR (Non-Af Amer) 17 POC Glucose (mg/dL) Random Glucose 156 H D Serum Osmolality Calcium 8.6 Phosphorus 3.2 Magnesium 1.6 Total Bilirubin 0.5 AST 25 ALT 15 Alkaline Phosphatase 141 H Total Protein 5.7 L Albumin 3.1 L Globulin 2.6 Albumin/Globulin Ratio 1.2 Complement C3 106.0 Complement C4 24.1 Assessment & Plan - Assessment and Plan (Free Text) Plan: All medical record entries made by the resident were at my direction. I have reviewed the chart and agree that the record accurately reflects my personal performance of the history, physical exam, and medical decision making. Patient appears to have a mixed picture with cirrhosis and pulmonary hypertension. The difficulty in her management lies also with her renal insufficiency. Would continue gentle diuresis and check daily weight. It might be worth having cardiology evaluate heart to determine if she would benefit from phosphodiesterase or endothelin blockade.
--- NOTE | 2019-03-17 18:31 | CARD ---
APPROVED REPORT Date of service: 03/16/2019 EKG Measurement Heart [id number] <Conclusion> Sinus rhythm with premature supraventricular complexes and with occasional premature ventricular complexes Rightward axis Nonspecific T wave abnormality Abnormal ECG
--- NOTE | 2019-03-18 06:50 | CP.PCM.PN ---
<Alivia Vo - Last Filed: 03/18/19 15:17> Subjective - Date & Time of Evaluation Date of Evaluation: 03/18/19 Time of Evaluation: 06:49 - Subjective Subjective: PGY-1 Alivia Vo D.O. Medicine progress note for Dr. Helton's service: Patient was seen and examined this morning. She says that her legs still hurt but swelling is improved. She says that the sides of her abdomen still hurt, and she has not had a BM since being hospitalized. She says she is urinating regularly. Objective - Vital Signs/Intake and Output Vital Signs (last 24 hours): Temp Pulse Resp BP Pulse Ox 98.2 F 74 20 150/83 97 03/18/19 04:10 03/18/19 04:10 03/18/19 04:10 03/18/19 04:10 03/18/19 04:10 Intake and Output: 03/17/19 03/18/19 18:59 06:59 Intake Total 600 Balance 600 - Medications Medications: Current Medications Albuterol/Ipratropium (Duoneb 3 Mg/0.5 Mg (3 Ml) Ud) 3 ml INH RQ6 PRN PRN Reason: Shortness of Breath Amlodipine Besylate (Norvasc) 10 mg PO DAILY [facility] Last Admin: 03/17/19 10:05 Dose: 10 mg Carvedilol (Coreg) 6.25 mg PO BID [facility] Dextrose (Dextrose 50% Inj) 0 ml IV STAT PRN; Protocol PRN Reason: Hypoglycemia Protocol Dextrose (Glutose 15) 0 gm PO ONCE PRN; Protocol PRN Reason: Hypoglycemia Protocol Folic Acid (Folic Acid) 1 mg PO DAILY [facility] Last Admin: 03/17/19 10:05 Dose: 1 mg Furosemide (Lasix) 40 mg IVP BID [facility] Last Admin: 03/17/19 17:44 Dose: 40 mg Glucagon (Glucagen Diagnostic Kit) 0 mg IM STAT PRN; Protocol PRN Reason: Hypoglycemia Protocol Heparin Sodium (Porcine) (Heparin) 5,000 units SC Q8 [facility] Last Admin: 03/18/19 06:01 Dose: 5,000 units Hydralazine HCl (Apresoline) 50 mg PO TID [facility] Last Admin: 03/17/19 17:44 Dose: 50 mg Dextrose (Dextrose 5% In Water 1000 Ml) 1,000 mls @ 0 mls/hr IV .Q0M PRN; Protocol PRN Reason: Hypoglycemia Protocol Insulin Human Regular (Novolin R) 0 unit SC ACHS [facility]; Protocol Last Admin: 03/17/19 21:07 Dose: Not Given Lorazepam (Ativan) 1 mg IVP Q6H PRN PRN Reason: Agitation Methadone HCl (Methadone) 0 mg PO Q24H [facility]; Taper Stop: 03/21/19 09:59 Multivitamins (Hexavitamin) 1 tab PO DAILY [facility] Last Admin: 03/17/19 10:05 Dose: 1 tab Nicotine (Nicoderm Cq) 1 patch TD DAILY [facility] Last Admin: 03/17/19 10:10 Dose: 1 patch Pneumococcal Polyvalent Vaccine (Pneumovax 23 Vaccine) 0.5 ml IM .ONCE ONE Stop: 03/18/19 10:01 Sennosides (Senokot Tab) 8.6 mg PO DAILY [facility] Thiamine HCl (Vitamin B1 Tab) 100 mg PO DAILY [facility] Last Admin: 03/17/19 10:05 Dose: 100 mg Trazodone HCl (Desyrel) 100 mg PO HS [facility] Last Admin: 03/17/19 21:50 Dose: 100 mg - Labs Labs: 03/17/19 06:36 03/17/19 06:36 PT 12.2 SECONDS (9.7-12.2) 03/16/19 21:09 INR 1.1 03/16/19 21:09 APTT 38.0 SECONDS (21-34) H 03/16/19 21:09 - Skin Additional comments: - Head Exam Head Exam: ATRAUMATIC, NORMAL INSPECTION - Eye Exam Additional comments: R eye fixed laterally - ENT Exam ENT Exam: Mucous Membranes Moist - Respiratory Exam Respiratory Exam: Clear to Ausculation Bilateral, NORMAL BREATHING PATTERN - Cardiovascular Exam Cardiovascular Exam: RRR, +S1, +S2 - GI/Abdominal Exam GI & Abdominal Exam: Soft, Tenderness (b/l toward her sides), Normal Bowel Sounds. absent: Distended, Guarding Additional comments: obese - Extremities Exam Extremities Exam: Pedal Edema (1+ b/l), Tenderness - Back Exam Back Exam: NORMAL INSPECTION - Neurological Exam Neurological Exam: Alert, Awake, Normal Gait, Oriented x3 - Psychiatric Exam Psychiatric exam: Normal Affect, Normal Mood - Skin Skin Exam: Dry, Normal Color, Warm - Additional Findings Additional findings: - Constitutional Appears: Non-toxic, No Acute Distress - Head Exam Head Exam: ATRAUMATIC, NORMAL INSPECTION - Eye Exam Additional comments: R eye fixed laterally - ENT Exam ENT Exam: Mucous Membranes Moist - Respiratory Exam Respiratory Exam: Clear to Ausculation Bilateral, NORMAL BREATHING PATTERN - Cardiovascular Exam Cardiovascular Exam: RRR, +S1, +S2 - GI/Abdominal Exam GI & Abdominal Exam: Soft, Tenderness (b/l toward her sides), Normal Bowel Sounds. absent: Distended, Guarding Additional comments: obese - Extremities Exam Extremities Exam: Pedal Edema (1+ b/l to mid-calves), Tenderness - Back Exam Back Exam: NORMAL INSPECTION - Neurological Exam Neurological Exam: Alert, Awake, Normal Gait, Oriented x3 - Psychiatric Exam Psychiatric exam: Normal Affect, Normal Mood - Skin Skin Exam: Dry, Normal Color, Warm Assessment and Plan - Assessment and Plan (Free Text) Assessment: Patient is a 58 yo female with CKD, HTN, T2DM, and polysubstance use (heroin and cocaine) who presented with leg swelling and abdominal pain. Patient found to have worsening kidney disease. Echo notable for severe pulm HTN. Nephro recommends renal biopsy. Plan: Chronic kidney disease, worsening - BUN 28-->32, Cr 2.6-->2.8 - UA: 2+ prot, 1+ blood, 17 WBC, 7 RBC - 03/2018 random prot >8 gm - D-dimer 634 - BNP 31,300 - H&H wnl - Serum osm 311 - Complement (C3, C4) wnl - 24-hr urine collection in progress - Renal US: echogenic kidneys - Nephrology consulted ([facility] [place])- rec kidney biopsy (was recommended to patient previously), avoid ACEI/ARB Bilateral lower extremity swelling and pleural effusion, acute, improving- consider CHF, cardiorenal disease, DM, HTN - CXR: cardiomegaly, L pleural effusion - EKG: NSR, PVCs - LE Dopplers: no DVT - Echo: EF 62%, mod-severe LVH, severe pulm HTN, mod TR - BNP 31,300- trend - Trop negative - Monitor on telemetry - Fluid restriction 1500 mL - Strict Is & Os - 03/18: -200 mL - Daily weights- stable - ASA 81 mg PO daily- HOLD starting 03/17 for renal biopsy - Duoneb Q6H PRN - Lasix 40 mg IV BID - Cardiology consulted ([facility]) Abdominal pain, acute - HIV and hepatitis negative - LFTs wnl - Abd US: mild hepatomegaly. Diffuse increased echogenicity in the liver may reflect hepatic steatosis. Nodular contour of the liver could represent cirrhosis. Medical renal disease. Gallbladder is contracted but no cholelithiasis. Mild diffuse dilation of the common bile duct without evidence for choledocholithiasis. - CT A/P pending - Hepatobiliary surgeon consulted ([facility]) Hypertension, chronic, poorly controlled, improving - Vitals Q4H - Lasix 40 mg IV BID - Norvasc 10 mg PO daily - Hydralazine 50 mg PO Q8H - Discontinue Metoprolol 50 mg PO BID - Start Coreg 6.25 mg PO BID Constipation, acute chronic - Senokot 8.6 mg PO daily Polysubstance use disorder, chronic- heroin (intranasal), cocaine, tobacco, alcohol - UDS positive for cocaine and opiates - BAL <10 - HIV and hepatitis negative - CIWA (0) - Ativan 2 mg IV Q4H PRN - Trazodone 100 mg PO QHS - Methadone taper - Nicoderm daily - Multivitamin, thiamine 100 mg, folate 1 mg daily - Psychiatry consulted (Meli) H/o type 2 diabetes mellitus, chronic - A1c 6 - Accuchecks ACHS - Hypoglycemia protocol - ISS low Ppx: VTE: SCDs contraindicated, Heparin 5000 units SC Q8H GI: Pepcid 20 mg PO daily Diet: Heart healthy, renal Code status: full code Dispo: Worsening renal function. Pending renal biopsy- ASA must be held for 5 days. Case was discussed with attending, Dr. Helton. <Dai Helton V - Last Filed: 04/02/19 22:19> Objective - Vital Signs/Intake and Output Vital Signs (last 24 hours): Temp Pulse Resp BP Pulse Ox 98.1 F 64 20 168/72 H 98 03/18/19 07:00 03/18/19 07:00 03/18/19 07:00 03/18/19 09:43 03/18/19 07:00 Intake and Output: 03/18/19 03/18/19 06:59 18:59 Intake Total 600 Output Total 800 Balance -200 - Medications Medications: Current Medications Albuterol/Ipratropium (Duoneb 3 Mg/0.5 Mg (3 Ml) Ud) 3 ml INH RQ6 PRN PRN Reason: Shortness of Breath Amlodipine Besylate (Norvasc) 10 mg PO DAILY [facility] Last Admin: 03/18/19 09:42 Dose: 10 mg Carvedilol (Coreg) 6.25 mg PO BID [facility] Last Admin: 03/18/19 09:41 Dose: 6.25 mg Dextrose (Dextrose 50% Inj) 0 ml IV STAT PRN; Protocol PRN Reason: Hypoglycemia Protocol Dextrose (Glutose 15) 0 gm PO ONCE PRN; Protocol PRN Reason: Hypoglycemia Protocol Folic Acid (Folic Acid) 1 mg PO DAILY [facility] Last Admin: 03/18/19 09:42 Dose: 1 mg Furosemide (Lasix) 40 mg IVP BID [facility] Last Admin: 03/18/19 09:43 Dose: 40 mg Glucagon (Glucagen Diagnostic Kit) 0 mg IM STAT PRN; Protocol PRN Reason: Hypoglycemia Protocol Heparin Sodium (Porcine) (Heparin) 5,000 units SC Q8 [facility] Last Admin: 03/18/19 13:38 Dose: 5,000 units Hydralazine HCl (Apresoline) 50 mg PO TID [facility] Last Admin: 03/18/19 14:01 Dose: 50 mg Dextrose (Dextrose 5% In Water 1000 Ml) 1,000 mls @ 0 mls/hr IV .Q0M PRN; Protocol PRN Reason: Hypoglycemia Protocol Insulin Human Regular (Novolin R) 0 unit SC ACHS [facility]; Protocol Last Admin: 03/18/19 12:00 Dose: Not Given Lorazepam (Ativan) 1 mg IVP Q6H PRN PRN Reason: Agitation Methadone HCl (Methadone) 15 mg PO Q24H [facility]; Taper Stop: 03/21/19 09:59 Last Admin: 03/18/19 09:41 Dose: 15 mg Multivitamins (Hexavitamin) 1 tab PO DAILY [facility] Last Admin: 03/18/19 09:42 Dose: 1 tab Nicotine (Nicoderm Cq) 1 patch TD DAILY [facility] Last Admin: 03/18/19 11:25 Dose: 1 patch Sennosides (Senokot Tab) 8.6 mg PO DAILY [facility] Last Admin: 03/18/19 09:42 Dose: 8.6 mg Thiamine HCl (Vitamin B1 Tab) 100 mg PO DAILY [facility] Last Admin: 03/18/19 09:42 Dose: 100 mg Trazodone HCl (Desyrel) 100 mg PO HS [facility] Last Admin: 03/17/19 21:50 Dose: 100 mg - Labs Labs: 03/18/19 11:07 03/18/19 11:07 PT 12.2 SECONDS (9.7-12.2) 03/16/19 21:09 INR 1.1 03/16/19 21:09 APTT 38.0 SECONDS (21-34) H 03/16/19 21:09 Attending/Attestation - Attestation I have personally seen and examined this patient.: Yes I have fully participated in the care of the patient.: Yes I have reviewed all pertinent clinical information, including history, physical exam and plan: Yes
[2019-03-18] MEDS: (Novolin R) Insulin Human Regular 100 units/ml vial SC SCH ×4 (07:48→21:38)
[2019-03-18] MEDS: Multiple Vitamins Tab PO SCH (09:42)
[2019-03-18] MEDS ORDERED: Pneumococcal 23-Valent Vaccine IM ONE (10:00)
[2019-03-18] MEDS ORDERED: Iohexol 240 (50 ml) PO ONE (10:15)
--- NOTE | 2019-03-18 10:26 | PCM.PYCHPN ---
Psychiatric Progress Note - Psychiatric Progress Note Patient seen today, length of contact: 17 min Patient Chief Complaint: I'm here for leg swelling, and want help with withdrawal symptoms Problems Identified/Issues Discussed: Patient seen, chart reviewed and case discussed with staff Patient is compliant with all medications, reports no side effects Symptoms are improving and still needs additional time to stabilize Patient reported difficulty sleeping and irritability 2/2 roommate behavior Support and psycho-education provided After care discussed Medication Change: Yes Medical Record Reviewed: Yes Mental Status Examination - Cognitive Function Orientation: Person, Place, Situation, Time Memory: Intact Attention: WNL - Mood Mood: Neutral - Affect Affect: Constricted - Speech Speech: Appropriate - Formal Thought Process Formal Thought Process: No Impairment - Suicidal Ideation Suicidal Ideation: No - Homicidal Ideation Homicidal Ideation: No Goal/Treatment Plan - Goal/Treatment Plan Need for Continued Stay: Discharge may exacerbated symptoms Progress Toward Problem(s) and Goals/Treatment Plan: Taper with Methadone PRN medications ativan Trazodone HS Patient room changed Medical care per primary All risks, benefits and treatment alternatives of medications discussed; patient understands and agrees Supportive therapy and psycho-education [place] for abstinence CBT for relapse prevention Encourage MAT Refer to rehab or IOP, and self-help groups Teach healthy lifestyle methods(diet, exercise, meditation) Smoking cessation with Nicotine patch Signing off Continue with medications Discussed with Dr. Garrison -Danay Bone, PGY-1 - Smoking Cessation Smoking Cessation Initiated: Yes
[2019-03-18 11:19] LABS: BASO # 0.1 K/uL (0.0-0.2); BASO % 1.4 % (0.0-2.0); EOS # 0.4 K/uL (0.0-0.7); HEMOGLOBIN 13.3 g/dL (11.0-16.0); LYMPH # 0.7 K/uL (1.0-4.3); LYMPH % 13.9 % (20.0-40.0); MEAN CELL VOLUME 96.3 fL (81.0-99.0); MEAN CORPUSCULAR HEMOGLOBIN 31.3 pg (27.0-31.0); MEAN CORPUSCULAR HGB CONC 32.4 g/dL (33.0-37.0); MEAN PLATELET VOLUME 10.4 fL (7.2-11.7); MONO # 0.4 K/uL (0.0-0.8); MONO % 7.3 % (0.0-10.0); NEUT # 3.7 K/uL (1.8-7.0); NEUT % 70.4 % (50.0-75.0); RBC 4.26 Mil/uL (3.80-5.20); RED CELL DISTRIBUTION WIDTH 15.6 % (11.5-14.5); WHITE BLOOD COUNT 5.2 K/uL (4.8-10.8)
--- NOTE | 2019-03-18 11:30 | CP.PCM.PN ---
<Robin Palacio - Last Filed: 03/18/19 11:21> Subjective - Date & Time of Evaluation Date of Evaluation: 03/18/19 Time of Evaluation: 07:55 - Subjective Subjective: Nephro Progress Note for Dr. Sarah Palacio DO, IM PGY-3 Patient seen and examined at bedside. Very somnolent this AM, minimally verbal, only answering in one-word answers and head nodding/shaking. Denies shortness of breath currently, chest pain, nausea, emesis, dysuria, hematuria. No acute events overnight reported. Objective - Vital Signs/Intake and Output Vital Signs (last 24 hours): Temp Pulse Resp BP Pulse Ox 98.1 F 64 20 168/72 H 98 03/18/19 07:00 03/18/19 07:00 03/18/19 07:00 03/18/19 09:43 03/18/19 07:00 - Medications Medications: Current Medications Albuterol/Ipratropium (Duoneb 3 Mg/0.5 Mg (3 Ml) Ud) 3 ml INH RQ6 PRN PRN Reason: Shortness of Breath Amlodipine Besylate (Norvasc) 10 mg PO DAILY [facility] Last Admin: 03/18/19 09:42 Dose: 10 mg Carvedilol (Coreg) 6.25 mg PO BID [facility] Last Admin: 03/18/19 09:41 Dose: 6.25 mg Dextrose (Dextrose 50% Inj) 0 ml IV STAT PRN; Protocol PRN Reason: Hypoglycemia Protocol Dextrose (Glutose 15) 0 gm PO ONCE PRN; Protocol PRN Reason: Hypoglycemia Protocol Folic Acid (Folic Acid) 1 mg PO DAILY [facility] Last Admin: 03/18/19 09:42 Dose: 1 mg Furosemide (Lasix) 40 mg IVP BID [facility] Last Admin: 03/18/19 09:43 Dose: 40 mg Glucagon (Glucagen Diagnostic Kit) 0 mg IM STAT PRN; Protocol PRN Reason: Hypoglycemia Protocol Heparin Sodium (Porcine) (Heparin) 5,000 units SC Q8 [facility] Last Admin: 03/18/19 06:01 Dose: 5,000 units Hydralazine HCl (Apresoline) 50 mg PO TID [facility] Last Admin: 03/18/19 09:42 Dose: 50 mg Dextrose (Dextrose 5% In Water 1000 Ml) 1,000 mls @ 0 mls/hr IV .Q0M PRN; Protocol PRN Reason: Hypoglycemia Protocol Insulin Human Regular (Novolin R) 0 unit SC ACHS [facility]; Protocol Last Admin: 03/18/19 07:48 Dose: Not Given Lorazepam (Ativan) 1 mg IVP Q6H PRN PRN Reason: Agitation Methadone HCl (Methadone) 15 mg PO Q24H [facility]; Taper Stop: 03/21/19 09:59 Last Admin: 03/18/19 09:41 Dose: 15 mg Multivitamins (Hexavitamin) 1 tab PO DAILY [facility] Last Admin: 03/18/19 09:42 Dose: 1 tab Nicotine (Nicoderm Cq) 1 patch TD DAILY [facility] Last Admin: 03/17/19 10:10 Dose: 1 patch Sennosides (Senokot Tab) 8.6 mg PO DAILY [facility] Last Admin: 03/18/19 09:42 Dose: 8.6 mg Thiamine HCl (Vitamin B1 Tab) 100 mg PO DAILY [facility] Last Admin: 03/18/19 09:42 Dose: 100 mg Trazodone HCl (Desyrel) 100 mg PO HS [facility] Last Admin: 03/17/19 21:50 Dose: 100 mg - Labs Labs: 03/17/19 06:36 03/17/19 06:36 PT 12.2 SECONDS (9.7-12.2) 03/16/19 21:09 INR 1.1 03/16/19 21:09 APTT 38.0 SECONDS (21-34) H 03/16/19 21:09 - Additional Findings Additional findings: - Constitutional Appears: Non-toxic, No Acute Distress, Somnolent - Head Exam Head Exam: ATRAUMATIC, NORMOCEPHALIC - Eye Exam Eye Exam: Opens eyes to verbal/physical stimuli, then quickly closes them. ab sent: Conjunctival injection, Scleral icterus Pupil Exam: absent: Irregular, Unequal - ENT Exam ENT Exam: Mucous Membranes Moist - Neck Exam Neck exam: Negative for: Lymphadenopathy, Thyromegaly - Respiratory Exam Respiratory Exam: Clear to Auscultation Bilateral, Prolonged Expiratory Phase, NORMAL BREATHING PATTERN. absent: Accessory Muscle Use, Chest Wall Tenderness, Decreased Breath Sounds, Rales, Rhonchi, Wheezes - Cardiovascular Exam Cardiovascular Exam: REGULAR RHYTHM, RRR, +S1, +S2. absent: Bradycardia, T achycardia, Irregular Rhythm, JVD, +S4 - GI/Abdominal Exam clear abdominal distension, firm but not rigid No spider angiomata or caput medusa appreciated distant-sounding bowel sounds heard sparsely diffusely tender to palpation, most prominent epigastrically and at bilateral lower quadrants, mild flank pain, no CVA tenderness - Extremities Exam Extremities exam: Positive for: full ROM, joint swelling, pedal edema (+2-3 pitting edema from feet to mid-thighs). Negative for: calf tenderness, tenderness, pedal pulses present (unable to palpate pulses through pedal edema) - Back Exam Back exam: absent: CVA tenderness (L), CVA tenderness (R) - Neurological Exam Somnolent, minimal spontaneous movements, following only some commands - Psychiatric Exam Psychiatric exam: Normal Affect, Normal Mood - Skin Skin Exam: Intact, Normal Color, waxy skin tone at bilateral LE from ankles to mid-thighs Assessment and Plan - Assessment and Plan (Free Text) Assessment: This is a 58 yo F with PMH of HTN, DM2, CVA x2 (first in 2005, date of 2nd unknown), CKD, and frequent cocaine and heroin abuse (snort/smoking, denies ever injecting) who presented to [facility] with complaints of progressively swelling bilateral LE x2-3 months, progressively worsening shortness of breath (exertional and intermittently at rest), and worsening abdominal swelling and pain x2 months. Nephro was consulted due to SUSANNAH over CVD vs progressively worsening renal function. Plan: 1) Bilateral LE and abdominal swelling, possible anasarca 2) Active tobacco, cocaine, and heroin abuse 3) HTN 4) DM2 5) Hx CVA x2 6) Worsening renal function SUSANNAH on CKD vs Progressive renal failure 7) Medication non-compliance -Cr 2.6 on admission, 2.8 today, 1.7-1.9 in 2018, 1.1-1.3 in 2017 Progressively worsening, unclear etiology; drug-induced (vasospasm from cocaine vs hypoperfusing 2/2 heroin use), cardiorenal, DM nephropathy A1c 6.0, last was 6.1, so DM well controlled, but can still have DM ne phropathy despite well-controlled DM In March 2018, urine random total protein > 8g, but continues to have normal albumin, suggestive nephrotic-range proteinuria without nephrotic syndrome Presentation strongly suggestive of CHF exacerbation, Echo yesterday notable for EF 60% but moderate to severe LVH and severe Pulm HTN Holding Aspirin, pt will need renal biopsy to determine underlying etiology -BP remains elevated Current regimen: Amlodipine 10mg, Lasix IV 40mg q12, Coreg 6.25mg BID, Hydralazine 50mg TID Given current Cr and eGFR, would avoid CHARLINE/ARB until underlying etiology of renal dysfunction determined Borderline bradycardic at night, so unable to further increase Coreg dose, could consider addition of Imdur or increasing Hydralazine -Cardio consulted, appreciate their recs -24 hr urine protein, creatinine clearance, urine electrolytes, complement, JEAN-PAUL, and ANCA ordered, f/u Patient reviewed and discussed with attending, Dr. Smiht <Arvin Smith - Last Filed: 03/19/19 08:16> Objective - Vital Signs/Intake and Output Vital Signs (last 24 hours): Temp Pulse Resp BP Pulse Ox 98.2 F 72 20 146/64 95 03/19/19 07:00 03/19/19 07:00 03/19/19 07:00 03/19/19 07:00 03/19/19 07:00 Intake and Output: 03/19/19 03/19/19 06:59 18:59 Intake Total 500 Output Total 400 Balance 100 - Medications Medications: Current Medications Albuterol/Ipratropium (Duoneb 3 Mg/0.5 Mg (3 Ml) Ud) 3 ml INH RQ6 PRN PRN Reason: Shortness of Breath Amlodipine Besylate (Norvasc) 10 mg PO DAILY [facility] Last Admin: 03/18/19 09:42 Dose: 10 mg Carvedilol (Coreg) 12.5 mg PO BID [facility] Dexamethasone (Decadron) 1 mg PO 2200 [facility] Stop: 03/19/19 22:01 Dextrose (Dextrose 50% Inj) 0 ml IV STAT PRN; Protocol PRN Reason: Hypoglycemia Protocol Dextrose (Glutose 15) 0 gm PO ONCE PRN; Protocol PRN Reason: Hypoglycemia Protocol Folic Acid (Folic Acid) 1 mg PO DAILY [facility] Last Admin: 03/18/19 09:42 Dose: 1 mg Furosemide (Lasix) 40 mg IVP BID [facility] Last Admin: 03/18/19 17:20 Dose: 40 mg Glucagon (Glucagen Diagnostic Kit) 0 mg IM STAT PRN; Protocol PRN Reason: Hypoglycemia Protocol Heparin Sodium (Porcine) (Heparin) 5,000 units SC Q8 [facility] Last Admin: 03/19/19 07:16 Dose: 5,000 units Hydralazine HCl (Apresoline) 50 mg PO TID [facility] Last Admin: 03/18/19 17:20 Dose: 50 mg Dextrose (Dextrose 5% In Water 1000 Ml) 1,000 mls @ 0 mls/hr IV .Q0M PRN; Protocol PRN Reason: Hypoglycemia Protocol Insulin Human Regular (Novolin R) 0 unit SC ACHS [facility]; Protocol Last Admin: 03/18/19 21:38 Dose: Not Given Lorazepam (Ativan) 1 mg IVP Q6H PRN PRN Reason: Agitation Methadone HCl (Methadone) 15 mg PO Q24H [facility]; Taper Stop: 03/21/19 09:59 Last Admin: 03/18/19 09:41 Dose: 15 mg Multivitamins (Hexavitamin) 1 tab PO DAILY [facility] Last Admin: 03/18/19 09:42 Dose: 1 tab Nicotine (Nicoderm Cq) 1 patch TD DAILY [facility] Last Admin: 03/18/19 11:25 Dose: 1 patch Polyethylene Glycol (Miralax) 17 gm PO DAILY [facility] Last Admin: 03/18/19 21:20 Dose: 17 gm Sennosides (Senokot Tab) 8.6 mg PO DAILY [facility] Last Admin: 03/18/19 09:42 Dose: 8.6 mg Thiamine HCl (Vitamin B1 Tab) 100 mg PO DAILY [facility] Last Admin: 03/18/19 09:42 Dose: 100 mg Trazodone HCl (Desyrel) 100 mg PO HS [facility] Last Admin: 03/18/19 21:20 Dose: 100 mg - Labs Labs: 03/18/19 11:07 03/18/19 17:40 PT 12.2 SECONDS (9.7-12.2) 03/16/19 21:09 INR 1.1 03/16/19 21:09 APTT 38.0 SECONDS (21-34) H 03/16/19 21:09 Attending/Attestation - Attestation I have personally seen and examined this patient.: Yes I have fully participated in the care of the patient.: Yes I have reviewed all pertinent clinical information, including history, physical exam and plan: Yes Notes (Text): Patient seen and examined; I agree with the resident's note as above with the following additions/edits: 58 yo F w/ htn, mild dm, and progressive CKD, admitted with acute decompensated CHF; Overall worsening renal function over past 2 years; CrCl of 10 ml/min is very worrisome and significantly worse than eGFR that is in low 20's; possibility of incomplete collection although 24 hr urine volume was ~2L; had long discussion with patient and family (prior to even getting CrCl result back); we discussed that she will eventually progress to needing dialysis and that she needs close outpatient f/u; patient also reports that her father was on dialysis; Otherwise, mild increase in serum creatinine since presentation in the setting of aggressive diuresis; still markedly edematous on exam with diastolic CHF and pulm htn; stable lytes; will continue lasix 40 mg IV bid; BP still high; agree with coreg dose increase; ADRIANA blockade is risky at this late stage of CKD so will hold off; -No definite indication for HD at this time; will continue to monitor closely; -May consider renal biopsy during this admission (mainly for diagnostic purposes); -Avoid nephrotoxic agents;
[2019-03-18 11:35] LABS: ALB/GLOB RATIO 1.2 (1.0-2.1); ALBUMIN 3.1 g/dL (3.5-5.0); CALCIUM 8.6 mg/dl (8.6-10.4)
[2019-03-18 11:38] LABS: COMPLEMENT C4 24.1 mg/dL (14.0-44.0)
[2019-03-18 18:01] LABS: URINE CREATININE 22.8 mg/dL
--- NOTE | 2019-03-18 18:11 | CP.PCM.PN ---
Subjective - Date & Time of Evaluation Date of Evaluation: 03/18/19 Time of Evaluation: 18:09 - Subjective Subjective: pt is off the floor getting a test. Echo reveals normal LV EF, moderte lvh, significant diastolic dysfunction, and pulmonary HTN. The findings are not c/w pericardial constriction. pt has diastolic heart failure, and pulmonary htn, leading to lower extremity edema,. BP control is the best and only treatment. BP is better today: advse advancing beta bc, and add other meds, as outlined, for better bp control. Objective - Vital Signs/Intake and Output Vital Signs (last 24 hours): Temp Pulse Resp BP Pulse Ox 97.9 F 72 20 173/75 H 94 L 03/18/19 16:00 03/18/19 16:00 03/18/19 16:00 03/18/19 17:20 03/18/19 16:00 Intake and Output: 03/18/19 03/18/19 06:59 18:59 Intake Total 600 Output Total 800 Balance -200 - Medications Medications: Current Medications Albuterol/Ipratropium (Duoneb 3 Mg/0.5 Mg (3 Ml) Ud) 3 ml INH RQ6 PRN PRN Reason: Shortness of Breath Amlodipine Besylate (Norvasc) 10 mg PO DAILY [facility] Last Admin: 03/18/19 09:42 Dose: 10 mg Carvedilol (Coreg) 6.25 mg PO BID [facility] Last Admin: 03/18/19 17:20 Dose: 6.25 mg Dextrose (Dextrose 50% Inj) 0 ml IV STAT PRN; Protocol PRN Reason: Hypoglycemia Protocol Dextrose (Glutose 15) 0 gm PO ONCE PRN; Protocol PRN Reason: Hypoglycemia Protocol Folic Acid (Folic Acid) 1 mg PO DAILY [facility] Last Admin: 03/18/19 09:42 Dose: 1 mg Furosemide (Lasix) 40 mg IVP BID [facility] Last Admin: 03/18/19 17:20 Dose: 40 mg Glucagon (Glucagen Diagnostic Kit) 0 mg IM STAT PRN; Protocol PRN Reason: Hypoglycemia Protocol Heparin Sodium (Porcine) (Heparin) 5,000 units SC Q8 [facility] Last Admin: 03/18/19 13:38 Dose: 5,000 units Hydralazine HCl (Apresoline) 50 mg PO TID [facility] Last Admin: 03/18/19 17:20 Dose: 50 mg Dextrose (Dextrose 5% In Water 1000 Ml) 1,000 mls @ 0 mls/hr IV .Q0M PRN; Protocol PRN Reason: Hypoglycemia Protocol Insulin Human Regular (Novolin R) 0 unit SC ACHS [facility]; Protocol Last Admin: 03/18/19 12:00 Dose: Not Given Lorazepam (Ativan) 1 mg IVP Q6H PRN PRN Reason: Agitation Methadone HCl (Methadone) 15 mg PO Q24H [facility]; Taper Stop: 03/21/19 09:59 Last Admin: 03/18/19 09:41 Dose: 15 mg Multivitamins (Hexavitamin) 1 tab PO DAILY [facility] Last Admin: 03/18/19 09:42 Dose: 1 tab Nicotine (Nicoderm Cq) 1 patch TD DAILY [facility] Last Admin: 03/18/19 11:25 Dose: 1 patch Polyethylene Glycol (Miralax) 17 gm PO DAILY [facility] Sennosides (Senokot Tab) 8.6 mg PO DAILY [facility] Last Admin: 03/18/19 09:42 Dose: 8.6 mg Thiamine HCl (Vitamin B1 Tab) 100 mg PO DAILY [facility] Last Admin: 03/18/19 09:42 Dose: 100 mg Trazodone HCl (Desyrel) 100 mg PO HS [facility] Last Admin: 03/17/19 21:50 Dose: 100 mg - Labs Labs: 03/18/19 11:07 03/18/19 17:40 PT 12.2 SECONDS (9.7-12.2) 03/16/19 21:09 INR 1.1 03/16/19 21:09 APTT 38.0 SECONDS (21-34) H 03/16/19 21:09
--- NOTE | 2019-03-18 19:04 | CT ---
Date of service: 03/18/2019 PROCEDURE: CT Abdomen and Pelvis with contrast HISTORY: abdomen pain COMPARISON: None. TECHNIQUE: Helical CT of the abdomen and pelvis was performed following oral contrast administration only. Intravenous contrast was not administered as per referring physician request. Coronal and sagittal reformats were generated. Radiation dose: Total exam DLP = 883.65 mGy-cm. This CT exam was performed using one or more of the following dose reduction techniques: Automated exposure control, adjustment of the mA and/or kV according to patient size, and/or use of iterative reconstruction technique. FINDINGS: LOWER THORAX: Cardiomegaly with [id number] left pleural effusion and mild right pleural effusion identified. No pericardial effusion. Mild interlobular septal thickening is appreciated as well as mild pulmonary venous concordant suspicious for CHF. Clinically correlate. Linear atelectasis is identified at the bilateral bases with underlying scarring not excluded. Dermal thickening bilateral breast may be a function of mild anasarca. Clinically correlate further. LIVER: Hepatomegaly without definitive mass appreciated in this unenhanced CT exam. No prominent intrahepatic biliary dilatation evident. GALLBLADDER AND BILE DUCTS: Gallbladder is completely contracted. Common bile duct appears upper limits normal caliber similar to that seen in prior abdomen ultrasound 03/17/2019. No radiodense choledocholithiasis identified. PANCREAS: Unremarkable. No gross lesion or ductal dilatation. SPLEEN: Unremarkable. ADRENALS: 2.2 x 1.4 cm nodule related to the right adrenal gland measures 7 Hounsfield units suggestive of a benign adrenal adenoma. Left adrenal gland appears thickened potentially reflecting hyperplasia. Hyperplasia is not excluded the right adrenal gland as well. KIDNEYS AND URETERS: No obstructive uropathy bilaterally or radiodense urolithiasis. No definitive contour abnormality to suggest renal mass. Nonspecific limited streaky perinephric changes are identified bilaterally. VASCULATURE: Unremarkable. No aortic aneurysm. No aortic atherosclerotic calcification or mural plaque present. BOWEL: No bowel obstruction is appreciated. The stomach is distended with retained food and limited oral contrast material. Prominent fecal loading is seen throughout the ascending through transverse large-bowel segments and is mild throughout the remainder including the rectosigmoid. Opacified small large-bowel loops are grossly nonfocal. APPENDIX: Normal appendix. PERITONEUM: Unremarkable. No free fluid. No free air. LYMPH NODES: Unremarkable. No enlarged lymph nodes. BLADDER: Unremarkable. REPRODUCTIVE: Unremarkable. BONES: No acute fracture. OTHER FINDINGS: Reticular markings in the subcutaneous fat of the lower abdomen as well as flank and back soft tissues suggest mild anasarca. IMPRESSION: 1. Hepatomegaly noted without focal mass or gross intrahepatic biliary duct dilatation. 2. Prominent fecal loading is seen throughout the ascending through transverse large-bowel segments and is otherwise mild without gross mural thickening evident. 3. Benign right adrenal adenoma suspected. Left adrenal hyperplasia identified and may coexistent right adrenal gland. 4. Mild anasarca. 5. Mild bilateral inguinal lymphadenopathy. 6. Mild CHF suspected. [id number] left and mild right pleural effusions identified. 7. Other lesser findings as discussed above
[2019-03-18] MEDS: POLYETHYLENE GLYCOL 3350 17 GM/Dose PACKET PO SCH (21:20)
[2019-03-18 22:28] LABS: CREATININE, RANDOM URINE 19.7 mg/dL
--- NOTE | 2019-03-19 07:12 | CP.PCM.PN ---
<Alivia Vo - Last Filed: 03/19/19 14:07> Subjective - Date & Time of Evaluation Date of Evaluation: 03/19/19 Time of Evaluation: 07:11 - Subjective Subjective: PGY-1 Alivia Vo D.O. Medicine progress note for Dr. Helton's service: Patient was seen and examined this morning. She says that she is feeling "okay." She says that she has been refusing blood work because she does not like to be stuck so many times. Explained to patient that her kidney function is worsening, and she may need dialysis. Patient became tearful and explained that her father was on dialysis. Also discussed heroin use contributing to medical problems and severe constipation. Patient expressed understanding. She was agreeable to an en jonn and midline insertion. The swelling of her legs is unchanged. Objective - Vital Signs/Intake and Output Vital Signs (last 24 hours): Temp Pulse Resp BP Pulse Ox 98.8 F 68 18 147/70 95 03/18/19 23:30 03/18/19 23:30 03/18/19 23:30 03/18/19 23:30 03/18/19 23:30 Intake and Output: 03/19/19 03/19/19 06:59 18:59 Intake Total 500 Output Total 400 Balance 100 - Medications Medications: Current Medications Albuterol/Ipratropium (Duoneb 3 Mg/0.5 Mg (3 Ml) Ud) 3 ml INH RQ6 PRN PRN Reason: Shortness of Breath Amlodipine Besylate (Norvasc) 10 mg PO DAILY [facility] Last Admin: 03/18/19 09:42 Dose: 10 mg Carvedilol (Coreg) 12.5 mg PO BID [facility] Dextrose (Dextrose 50% Inj) 0 ml IV STAT PRN; Protocol PRN Reason: Hypoglycemia Protocol Dextrose (Glutose 15) 0 gm PO ONCE PRN; Protocol PRN Reason: Hypoglycemia Protocol Folic Acid (Folic Acid) 1 mg PO DAILY [facility] Last Admin: 03/18/19 09:42 Dose: 1 mg Furosemide (Lasix) 40 mg IVP BID [facility] Last Admin: 03/18/19 17:20 Dose: 40 mg Glucagon (Glucagen Diagnostic Kit) 0 mg IM STAT PRN; Protocol PRN Reason: Hypoglycemia Protocol Heparin Sodium (Porcine) (Heparin) 5,000 units SC Q8 [facility] Last Admin: 03/18/19 21:37 Dose: Not Given Hydralazine HCl (Apresoline) 50 mg PO TID [facility] Last Admin: 03/18/19 17:20 Dose: 50 mg Dextrose (Dextrose 5% In Water 1000 Ml) 1,000 mls @ 0 mls/hr IV .Q0M PRN; Protocol PRN Reason: Hypoglycemia Protocol Insulin Human Regular (Novolin R) 0 unit SC ACHS [facility]; Protocol Last Admin: 03/18/19 21:38 Dose: Not Given Lorazepam (Ativan) 1 mg IVP Q6H PRN PRN Reason: Agitation Methadone HCl (Methadone) 15 mg PO Q24H [facility]; Taper Stop: 03/21/19 09:59 Last Admin: 03/18/19 09:41 Dose: 15 mg Multivitamins (Hexavitamin) 1 tab PO DAILY [facility] Last Admin: 03/18/19 09:42 Dose: 1 tab Nicotine (Nicoderm Cq) 1 patch TD DAILY [facility] Last Admin: 03/18/19 11:25 Dose: 1 patch Polyethylene Glycol (Miralax) 17 gm PO DAILY [facility] Last Admin: 03/18/19 21:20 Dose: 17 gm Sennosides (Senokot Tab) 8.6 mg PO DAILY [facility] Last Admin: 03/18/19 09:42 Dose: 8.6 mg Thiamine HCl (Vitamin B1 Tab) 100 mg PO DAILY [facility] Last Admin: 03/18/19 09:42 Dose: 100 mg Trazodone HCl (Desyrel) 100 mg PO HS [facility] Last Admin: 03/18/19 21:20 Dose: 100 mg - Labs Labs: 03/18/19 11:07 03/18/19 17:40 PT 12.2 SECONDS (9.7-12.2) 03/16/19 21:09 INR 1.1 03/16/19 21:09 APTT 38.0 SECONDS (21-34) H 03/16/19 21:09 - Additional Findings Additional findings: - Constitutional Appears: Non-toxic, No Acute Distress - Head Exam Head Exam: ATRAUMATIC, NORMAL INSPECTION - Eye Exam Additional comments: R eye fixed laterally - ENT Exam ENT Exam: Mucous Membranes Moist - Respiratory Exam Respiratory Exam: Clear to Auscultation Bilateral, NORMAL BREATHING PATTERN - Cardiovascular Exam Cardiovascular Exam: RRR, +S1, +S2 - GI/Abdominal Exam GI & Abdominal Exam: Soft, Tenderness (b/l toward her sides), Normal Bowel Sounds. absent: Distended, Guarding Additional comments: obese - Extremities Exam Extremities Exam: Pedal Edema (1+ b/l to mid-calves), Tenderness, shiny skin - Back Exam Back Exam: NORMAL INSPECTION - Neurological Exam Neurological Exam: Alert, Awake, Normal Gait, Oriented x3 - Psychiatric Exam Psychiatric exam: Normal Affect, Normal Mood - Skin Skin Exam: Dry, Normal Color, Warm Assessment and Plan - Assessment and Plan (Free Text) Assessment: Patient is a 58 yo female with CKD, HTN, T2DM, and polysubstance use (heroin and cocaine) who presented with leg swelling and abdominal pain. Patient found to have worsening kidney disease and severe constipation. Echo notable for severe pulm HTN. Nephro recommends renal biopsy and plans for dialysis. Plan: Chronic kidney disease, worsening - BUN 28-->36, Cr 2.6-->2.8 - UA: 2+ prot, 1+ blood, 17 WBC, 7 RBC - 03/2018 random prot >8 gm - D-dimer 634 - BNP 31,300--> 14,600 - H&H wnl - Serum osm 311 - Complement (C3, C4) wnl - 24-hr urine collection in progress- patient has to repeat as she did not properly collect all of her urine last time - Renal US: echogenic kidneys - Nephrology consulted ([facility] [place])- rec kidney biopsy (was recommended to patient previously), avoid ACEI/ARB, patient will most likely need to start dialysis - Vascular surgery consulted (Ali Chuk)- vein mapping Bilateral lower extremity swelling and pleural effusions, acute, improving- suspect cardiorenal disease +/- DM +/- HTN - CXR: cardiomegaly, L pleural effusion - EKG: NSR, PVCs - LE Dopplers: no DVT - Echo: EF 62%, mod-severe LVH, severe pulm HTN, mod TR - CT A/P: Mild CHF suspected. [id number] left and mild right pleural effusions identified. - BNP 31,300--> 14,600 - Trop negative - Monitor on telemetry - Fluid restriction 1500 mL - Strict Is & Os - 03/19: +300 mL - Daily weights- stable - Duoneb Q6H PRN - Lasix 40 mg IV BID - Cardiology consulted ([facility]) Hypertension, chronic, poorly controlled, improving - Echo: mod-severe concentric LVH - Vitals Q4H - Lasix 40 mg IV BID - Norvasc 10 mg PO daily - Hydralazine 50 mg PO Q8H - Increase Coreg to 12.5 mg PO BID Constipation, acute on chronic - CT A/P: Prominent fecal loading is seen throughout the ascending through transverse large-bowel segments and is otherwise mild without gross mural thickening evident. - Senokot 8.6 mg PO daily - Miralax daily - Lactulose x1 on 03/19 - Mineral oil enema x1 on 03/19 Hepatis steatosis, chronic - HIV and hepatitis negative - LFTs wnl - Abd US: mild hepatomegaly. Diffuse increased echogenicity in the liver may reflect hepatic steatosis. Nodular contour of the liver could represent cirrhosis. Medical renal disease. Gallbladder is contracted but no cholelithiasis. Mild diffuse dilation of the common bile duct without evidence for choledocholithiasis. - CT A/P: Hepatomegaly noted without focal mass or gross intrahepatic biliary duct dilatation. Mild anasarca. - Hepatobiliary surgeon consulted ([facility]) Adrenal mass/hyperplasia - CT A/P: Benign right adrenal adenoma suspected. Left adrenal hyperplasia identified and may coexistent right adrenal gland. - 1 mg Dexamethasone suppression test tonight Polysubstance use disorder, chronic- heroin (intranasal), cocaine, tobacco, alcohol - UDS positive for cocaine and opiates - BAL <10 - HIV and hepatitis negative - CIWA (0) - Ativan 2 mg IV Q4H PRN - Trazodone 100 mg PO QHS - Methadone taper - Nicoderm daily - Multivitamin, thiamine 100 mg, folate 1 mg daily - Psychiatry consulted ([facility]) H/o type 2 diabetes mellitus, chronic - A1c 6 - Accuchecks ACHS - Hypoglycemia protocol - ISS low Ppx: VTE: SCDs contraindicated, Heparin 5000 units SC Q8H GI: Pepcid 20 mg PO daily Diet: Heart healthy, renal Code status: full code Dispo: Worsening renal function. Pending renal biopsy. Possible hemodialysis. Case was discussed with attending, Dr. Helton. <Dai Helton V - Last Filed: 03/19/19 18:51> Objective - Vital Signs/Intake and Output Vital Signs (last 24 hours): Temp Pulse Resp BP Pulse Ox 97.3 F L 64 20 153/91 H 95 03/19/19 15:00 03/19/19 15:42 03/19/19 15:00 03/19/19 17:28 03/19/19 15:00 Intake and Output: 03/19/19 03/19/19 06:59 18:59 Intake Total 500 300 Output Total 400 500 Balance 100 -200 - Medications Medications: Current Medications Albuterol/Ipratropium (Duoneb 3 Mg/0.5 Mg (3 Ml) Ud) 3 ml INH RQ6 PRN PRN Reason: Shortness of Breath Amlodipine Besylate (Norvasc) 10 mg PO DAILY [facility] Last Admin: 03/19/19 10:37 Dose: 10 mg Carvedilol (Coreg) 12.5 mg PO BID [facility] Last Admin: 03/19/19 17:28 Dose: 12.5 mg Dexamethasone (Decadron) 1 mg PO 2200 [facility] Stop: 03/19/19 22:01 Dextrose (Dextrose 50% Inj) 0 ml IV STAT PRN; Protocol PRN Reason: Hypoglycemia Protocol Dextrose (Glutose 15) 0 gm PO ONCE PRN; Protocol PRN Reason: Hypoglycemia Protocol Folic Acid (Folic Acid) 1 mg PO DAILY [facility] Last Admin: 03/19/19 10:34 Dose: 1 mg Glucagon (Glucagen Diagnostic Kit) 0 mg IM STAT PRN; Protocol PRN Reason: Hypoglycemia Protocol Heparin Sodium (Porcine) (Heparin) 5,000 units SC Q8 [facility] Last Admin: 03/19/19 13:49 Dose: 5,000 units Hydralazine HCl (Apresoline) 50 mg PO TID [facility] Last Admin: 03/19/19 17:28 Dose: 50 mg Dextrose (Dextrose 5% In Water 1000 Ml) 1,000 mls @ 0 mls/hr IV .Q0M PRN; Julia col PRN Reason: Hypoglycemia Protocol Insulin Human Regular (Novolin R) 0 unit SC ACHS [facility]; Protocol Last Admin: 03/19/19 17:00 Dose: Not Given Lorazepam (Ativan) 1 mg IVP Q6H PRN PRN Reason: Agitation Methadone HCl (Methadone) 10 mg PO Q24H [facility]; Taper Stop: 03/21/19 09:59 Last Admin: 03/19/19 10:34 Dose: 10 mg Multivitamins (Hexavitamin) 1 tab PO DAILY [facility] Last Admin: 03/19/19 10:34 Dose: 1 tab Nicotine (Nicoderm Cq) 1 patch TD DAILY [facility] Last Admin: 03/19/19 10:33 Dose: 1 patch Polyethylene Glycol (Miralax) 17 gm PO DAILY [facility] Last Admin: 03/19/19 10:37 Dose: 17 gm Sennosides (Senokot Tab) 8.6 mg PO DAILY [facility] Last Admin: 03/19/19 10:37 Dose: 8.6 mg Thiamine HCl (Vitamin B1 Tab) 100 mg PO DAILY [facility] Last Admin: 03/19/19 10:33 Dose: 100 mg Trazodone HCl (Desyrel) 100 mg PO HS [facility] Last Admin: 03/18/19 21:20 Dose: 100 mg - Labs Labs: 03/19/19 11:55 03/19/19 11:55 PT 12.2 SECONDS (9.7-12.2) 03/16/19 21:09 INR 1.1 03/16/19 21:09 APTT 38.0 SECONDS (21-34) H 03/16/19 21:09 Attending/Attestation - Attestation I have personally seen and examined this patient.: Yes I have fully participated in the care of the patient.: Yes I have reviewed all pertinent clinical information, including history, physical exam and plan: Yes Notes (Text): Patient seen, examined, and case discussed with day-time resident. Patient seen at bedside this morning. Patient's blood pressure better controll ed. Initially blood work not collected this morning, collected later today. Patient after some discussion with nephrology and medicine team, was amenable to a midline. We did not place a PICC because nephrology is planning for future dialysis for the patient. There is concern regarding the accuracy regarding the 24 hours urine collection given there is proteinura of 3gram; unclear if the patient is collecting all her urine or not. patients father has had dialysis so she is familiar with the pro cess, she is aware given her hypertension and diabetes, these comorbidities will lead to kidney disease and dialysis as well. Nephrology requesting vascular surgery toe evaluate to plan for dialysis which is likely in her future. She is also aware that her uncontrolled blood pressure has result on congestive heart failure given the swelling in the abdomen and legs. Patient is aware her drug use is a contributing factor as well to her overall health as well. She reports she takes heroin intranasal only and sometimes cocaine and alcohol as well. I have spoken with the nursing as well this morning for adequate intake and output to see if diuretic therapy is helping or not. Patient's CT scan noted for constipation likely opiod induced given her heroin use. We have ordered for mineral oil enema for her today. Will follow for bowel movement as well. Cardiology, nephrology following. help appreciated.
[2019-03-19] MEDS: (Novolin R) Insulin Human Regular 100 units/ml vial SC SCH ×4 (08:13→21:54)
[2019-03-19] MEDS ORDERED: Mineral Oil Enema 135 ml PR ONE (10:30)
[2019-03-19] MEDS: Multiple Vitamins Tab PO SCH (10:34)
[2019-03-19] MEDS: POLYETHYLENE GLYCOL 3350 17 GM/Dose PACKET PO SCH (10:37)
--- NOTE | 2019-03-19 11:07 | VASCLAB ---
Date of service: 03/17/2019 STUDY DESCRIPTION: Lower Extremity Arterial Exam (PVR). HISTORY: Decreased pulses, Rest pain. PRIORS: Last arterial exam 07/01/2018, abnormal right LE. TECHNIQUE: Pulse volume recording waveforms and segmental pressures of bilateral lower extremities at multiple levels were obtained. Ankle Brachial Indices (ABIs) were calculated. Report prepared by Olivier Berman RVT RIGHT LOWER EXTREMITY: * Brachial artery: Pressure - 174 mmHg. * High thigh: Pressure - 195 mmHg: Ratio - 0.89 PVR waveform - Reduced * Low thigh: Pressure - 99 mmHg: Ratio - 0.45 PVR waveform: Reduced * Calf: Pressure - 136 mmHg: Ratio - 0.62 PVR waveform: Reduced * Posterior tibial Artery: Pressure - 81 mmHg: Ratio - 0.37 PVR waveform: Absent * Dorsalis pedis Artery: Pressure - 64 mmHg: Ratio - 0.29 PVR waveform: Absent * Great toe: Pressure - 40 mmHg: Ratio - 0.18 PVR waveform: Reduced Ankle brachial index (ELMA): 0.37 LEFT LOWER EXTREMITY: * Brachial artery: Pressure - 220 mmHg. * High thigh: Pressure - 213 mmHg: Ratio - 0.97: PVR waveform - Reduced * Low thigh: Pressure - 214 mmHg: Ratio - 0.97 PVR waveform: Reduced * Calf: Pressure - 161 mmHg: Ratio - 0.73 PVR waveform: Reduced * Posterior tibial Artery: Pressure - 104 mmHg: Ratio - 0.47 PVR waveform: Reduced * Dorsalis pedis Artery: Pressure - 127 mmHg: Ratio - 0.58 PVR waveform: Reduced * Great toe: Pressure - 72 mmHg: Ratio - 0.33 PVR waveform: Reduced Ankle brachial index (ELMA): 0.58 OTHER FINDINGS: None. IMPRESSION: Right: Ankle brachial index and PVR waveforms suggest moderate to severe arterial insufficiency, beginning at the superficial femoral artery level. Left: Ankle brachial index and PVR waveforms suggest mild to moderate arterial insufficiency, beginning at the popliteal artery level.
--- NOTE | 2019-03-19 11:21 | CP.PCM.PN ---
<Robin Palacio - Last Filed: 03/19/19 13:39> Subjective - Date & Time of Evaluation Date of Evaluation: 03/19/19 Time of Evaluation: 07:45 - Subjective Subjective: Nephro Progress Note for Dr. Smith Service Robin Palacio DO, IM PGY-3 Patient seen and examined at bedside. As per primary team, patient has been refusing Iv lasix as reports discomfort with admission via her EJ IV, which is her only access. Patient has in the past refused TLCs, and is still wary of getting one currently, but due to possible pending need for HD, Nephro recommends against PICC line; pt amenable to midline, consent for procedure obtained, primary team and vascular nurse notified. Objective - Vital Signs/Intake and Output Vital Signs (last 24 hours): Temp Pulse Resp BP Pulse Ox 98.2 F 62 20 146/64 95 03/19/19 07:00 03/19/19 07:59 03/19/19 07:00 03/19/19 07:00 03/19/19 07:00 Intake and Output: 03/19/19 03/19/19 06:59 18:59 Intake Total 500 Output Total 400 Balance 100 - Medications Medications: Current Medications Albuterol/Ipratropium (Duoneb 3 Mg/0.5 Mg (3 Ml) Ud) 3 ml INH RQ6 PRN PRN Reason: Shortness of Breath Amlodipine Besylate (Norvasc) 10 mg PO DAILY [facility] Last Admin: 03/18/19 09:42 Dose: 10 mg Carvedilol (Coreg) 12.5 mg PO BID [facility] Dexamethasone (Decadron) 1 mg PO 2200 [facility] Stop: 03/19/19 22:01 Dextrose (Dextrose 50% Inj) 0 ml IV STAT PRN; Protocol PRN Reason: Hypoglycemia Protocol Dextrose (Glutose 15) 0 gm PO ONCE PRN; Protocol PRN Reason: Hypoglycemia Protocol Folic Acid (Folic Acid) 1 mg PO DAILY [facility] Last Admin: 03/18/19 09:42 Dose: 1 mg Furosemide (Lasix) 40 mg IVP BID [facility] [place] Last Admin: 03/18/19 17:20 Dose: 40 mg Glucagon (Glucagen Diagnostic Kit) 0 mg IM STAT PRN; Protocol PRN Reason: Hypoglycemia Protocol Heparin Sodium (Porcine) (Heparin) 5,000 units SC Q8 [facility] Last Admin: 03/19/19 07:16 Dose: 5,000 units Hydralazine HCl (Apresoline) 50 mg PO TID [facility] Last Admin: 03/18/19 17:20 Dose: 50 mg Dextrose (Dextrose 5% In Water 1000 Ml) 1,000 mls @ 0 mls/hr IV .Q0M PRN; Protocol PRN Reason: Hypoglycemia Protocol Insulin Human Regular (Novolin R) 0 unit SC ACHS [facility]; Protocol Last Admin: 03/19/19 08:13 Dose: Not Given Lorazepam (Ativan) 1 mg IVP Q6H PRN PRN Reason: Agitation Methadone HCl (Methadone) 10 mg PO Q24H [facility] [place]; Taper Stop: 03/21/19 09:59 Last Admin: 03/18/19 09:41 Dose: 15 mg Multivitamins (Hexavitamin) 1 tab PO DAILY [facility] Last Admin: 03/18/19 09:42 Dose: 1 tab Nicotine (Nicoderm Cq) 1 patch TD DAILY [facility] Last Admin: 03/18/19 11:25 Dose: 1 patch Polyethylene Glycol (Miralax) 17 gm PO DAILY [facility] Last Admin: 03/18/19 21:20 Dose: 17 gm Sennosides (Senokot Tab) 8.6 mg PO DAILY [facility] Last Admin: 03/18/19 09:42 Dose: 8.6 mg Thiamine HCl (Vitamin B1 Tab) 100 mg PO DAILY [facility] [place] Last Admin: 03/18/19 09:42 Dose: 100 mg Trazodone HCl (Desyrel) 100 mg PO HS [facility] Last Admin: 03/18/19 21:20 Dose: 100 mg - Labs Labs: 03/18/19 11:07 03/18/19 17:40 PT 12.2 SECONDS (9.7-12.2) 03/16/19 21:09 INR 1.1 03/16/19 21:09 APTT 38.0 SECONDS (21-34) H 03/16/19 21:09 - Additional Findings Additional findings: - Constitutional Appears: Non-toxic, No Acute Distress - Head Exam Head Exam: ATRAUMATIC, NORMOCEPHALIC - Eye Exam Eye Exam: EOMI. absent: Conjunctival injection, Scleral icterus Pupil Exam: absent: Irregular, Unequal - ENT Exam ENT Exam: Mucous Membranes Moist - Neck Exam Neck exam: Negative for: Lymphadenopathy, Thyromegaly - Respiratory Exam Respiratory Exam: Clear to Auscultation Bilateral, Prolonged Expiratory Phase, NORMAL BREATHING PATTERN. absent: Accessory Muscle Use, Chest Wall Tenderness, Decreased Breath Sounds, Rales, Rhonchi, Wheezes - Cardiovascular Exam Cardiovascular Exam: REGULAR RHYTHM, RRR, +S1, +S2. absent: Bradycardia, Tachycardia, Irregular Rhythm, JVD, +S4 - GI/Abdominal Exam clear abdominal distension, less firm and less tender diffusely No spider angiomata or caput medusa appreciated distant-sounding bowel sounds heard sparsely - Extremities Exam Extremities exam: Positive for: full ROM, joint swelling, pedal edema (+2 pitting edema from feet to mid-thighs). Negative for: calf tenderness, tende rness, pedal pulses present (unable to palpate pulses through pedal edema) - Back Exam Back exam: absent: CVA tenderness (L), CVA tenderness (R) - Neurological Exam Awake and alert, moving all extremities spontaneously and on command - Psychiatric Exam Psychiatric exam: Normal Affect, Normal Mood - Skin Skin Exam: Intact, Normal Color, waxy skin tone at bilateral LE from ankles to mid-thighs Assessment and Plan - Assessment and Plan (Free Text) Assessment: This is a 58 yo F with PMH of HTN, DM2, CVA x2 (first in 2005, date of 2nd unknown), CKD, and frequent cocaine and heroin abuse (snort/smoking, denies ever injecting) who presented to [facility] with complaints of progressively swelling bilateral LE x2-3 months, progressively worsening shortness of breath (exertional and intermittently at rest), and worsening abdominal swelling and pain x2 months. Nephro was consulted due to SUSANNAH over CVD vs progressively worsening renal function. Plan: 1) Bilateral LE and abdominal swelling, possible anasarca 2) Active tobacco, cocaine, and heroin abuse 3) HTN 4) DM2 5) Hx CVA x2 6) Worsening renal function SUSANNAH on CKD vs Progressive renal failure 7) Medication non-compliance -Cr 2.6 on admission, 2.8 again today, 1.7-1.9 in 2018, 1.1-1.3 in 2017 Progressively worsening, unclear etiology; drug-induced (vasospasm from cocaine vs hypoperfusing 2/2 heroin use), cardiorenal, DM nephropathy A1c 6.0, last was 6.1, so DM well controlled, but can still have DM nephropathy despite well-controlled DM 24hr urine protein 3042, Cr clearance 10; unusually low, patient admits to not collecting all urine, will order repeats, nursing notified Presentation strongly suggestive of CHF exacerbation, Echo 03/17 notable for EF 60% but moderate to severe LVH and severe Pulm HTN Holding Aspirin, pt will need renal biopsy to determine underlying etiology, needs to be off for 5 days Midline obtained, can resume Lasix 40mg IV q12 -BP is improved but remains elevated, systolic 140's-150's Current regimen: Amlodipine 10mg, Coreg 12.5mg BID, Hydralazine 50mg TID; was refusing her Lasix 40mg IV q12 (can now resume) Bumex 2mg PO x1 ordered, should improve BP as well Given current Cr and eGFR, would avoid CHARLINE/ARB until underlying etiology of renal dysfunction determined -Cardio consulted, appreciate their recs -urine electrolytes, complement, JEAN-PAUL, and ANCA ordered, f/u JEAN-PAUL and ANCA still pending Urine electrolytes: Na 112, K 22.2, Cr 19.7, Urea 150 -Recommend consult to [facility] Surgery for assessment for possible AV fistula given likely pending need for HD Vein mapping US ordered -Given CT abd/pelvis findings concerning for possible adrenal adenomas, workup for pheo, hyperaldo, and subclinical vandana's ordered, f/u Pending 1mg Dexamethasone suppression test tonight Patient reviewed and discussed with attending, Dr. Smith <Arvin Smith - Last Filed: 03/20/19 08:04> Objective - Vital Signs/Intake and Output Vital Signs (last 24 hours): Temp Pulse Resp BP Pulse Ox 98.0 F 55 L 20 177/83 H 94 L 03/20/19 07:00 03/20/19 07:00 03/20/19 07:00 03/20/19 07:00 03/20/19 07:00 - Medications Medications: Current Medications Albuterol/Ipratropium (Duoneb 3 Mg/0.5 Mg (3 Ml) Ud) 3 ml INH RQ6 PRN PRN Reason: Shortness of Breath Amlodipine Besylate (Norvasc) 10 mg PO DAILY [facility] Last Admin: 03/19/19 10:37 Dose: 10 mg Carvedilol (Coreg) 12.5 mg PO BID [facility] Last Admin: 03/19/19 17:28 Dose: 12.5 mg Dextrose (Dextrose 50% Inj) 0 ml IV STAT PRN; Protocol PRN Reason: Hypoglycemia Protocol Dextrose (Glutose 15) 0 gm PO ONCE PRN; Protocol PRN Reason: Hypoglycemia Protocol Folic Acid (Folic Acid) 1 mg PO DAILY [facility] Last Admin: 03/19/19 10:34 Dose: 1 mg Furosemide (Lasix) 40 mg IVP Q12H [facility] Glucagon (Glucagen Diagnostic Kit) 0 mg IM STAT PRN; Protocol PRN Reason: Hypoglycemia Protocol Heparin Sodium (Porcine) (Heparin) 5,000 units SC Q8 [facility] Last Admin: 03/20/19 06:54 Dose: Not Given Hydralazine HCl (Apresoline) 50 mg PO TID [facility] Last Admin: 03/19/19 17:28 Dose: 50 mg Dextrose (Dextrose 5% In Water 1000 Ml) 1,000 mls @ 0 mls/hr IV .Q0M PRN; Protocol PRN Reason: Hypoglycemia Protocol Insulin Human Regular (Novolin R) 0 unit SC ACHS [facility]; Protocol Last Admin: 03/19/19 21:54 Dose: Not Given Lorazepam (Ativan) 1 mg IVP Q6H PRN PRN Reason: Agitation Methadone HCl (Methadone) 10 mg PO Q24H [facility]; Taper Stop: 03/21/19 09:59 Last Admin: 03/19/19 10:34 Dose: 10 mg Multivitamins (Hexavitamin) 1 tab PO DAILY [facility] Last Admin: 03/19/19 10:34 Dose: 1 tab Nicotine (Nicoderm Cq) 1 patch TD DAILY [facility] [place] Last Admin: 03/19/19 10:33 Dose: 1 patch Polyethylene Glycol (Miralax) 17 gm PO DAILY [facility] Last Admin: 03/19/19 10:37 Dose: 17 gm Sennosides (Senokot Tab) 8.6 mg PO DAILY [facility] Last Admin: 03/19/19 10:37 Dose: 8.6 mg Thiamine HCl (Vitamin B1 Tab) 100 mg PO DAILY [facility] Last Admin: 03/19/19 10:33 Dose: 100 mg Trazodone HCl (Desyrel) 100 mg PO HS [facility] Last Admin: 03/19/19 21:20 Dose: 100 mg - Labs Labs: 03/20/19 07:16 03/19/19 11:55 PT 12.2 SECONDS (9.7-12.2) 03/16/19 21:09 INR 1.1 03/16/19 21:09 APTT 38.0 SECONDS (21-34) H 03/16/19 21:09 Attending/Attestation - Attestation I have personally seen and examined this patient.: Yes I have fully participated in the care of the patient.: Yes I have reviewed all pertinent clinical information, including history, physical exam and plan: Yes Notes (Text): Patient seen and examined; I agree with the resident's note as above with the following additions/edits: Patient with htn, progressive CKD, admitted with acute decompensated diastolic CHF/pulm htn; SUSANNAH v. progession of CKD, likely the latter; serologic workup for proteinuric kidney disease thus far unremarkable, will f/u; Marked discrepancy between CrCl (10 ml/min) and eGFR (in low 20's for AA) but patient admits to missing to collect a couple of her urinations; nevertheless, even if patient collected 2/3 of her urination, CrCl is still very low and indicates that HD preparation should be started during this admission; Otherwise, renal function slightly worse with aggressive diuresis; still with marked leg edema but comfortable on room air; stable lytes; will continue IV lasix 40 mg bid; BP better controlled but not yet at goal; continue current meds for now; Vascular access issues as patient wanting EJ out; we reluctantly agree for short term use placement of midline in this impending HD patient; -will repeat 24 hr collection (for both protein and CrCl); -consulting [facility] surgery for AVF creation; -will plan for renal biopsy for Friday; patient to be NPO past MN on Friday; -avoid nephrotoxic agents;
[2019-03-19 12:49] LABS: BASO % 0.8 % (0.0-2.0); EOS # 0.3 K/uL (0.0-0.7); EOS % 6.4 % (0.0-4.0); LYMPH # 0.6 K/uL (1.0-4.3); LYMPH % 11.2 % (20.0-40.0); MEAN CELL VOLUME 95.2 fL (81.0-99.0); MEAN CORPUSCULAR HEMOGLOBIN 30.5 pg (27.0-31.0); MEAN PLATELET VOLUME 10.3 fL (7.2-11.7); MONO # 0.5 K/uL (0.0-0.8); MONO % 9.3 % (0.0-10.0); NEUT # 3.9 K/uL (1.8-7.0); NEUT % 72.3 % (50.0-75.0); RBC 4.25 Mil/uL (3.80-5.20); RED CELL DISTRIBUTION WIDTH 15.7 % (11.5-14.5); WHITE BLOOD COUNT 5.4 K/uL (4.8-10.8)
[2019-03-19 13:30] LABS: ALB/GLOB RATIO 1.1 (1.0-2.1); ALBUMIN 3.1 g/dL (3.5-5.0); CALCIUM 9.1 mg/dl (8.6-10.4)
--- NOTE | 2019-03-20 06:17 | CP.PCM.CON ---
History of Present Illness - History of Present Illness History of Present Illness: Vascular Surgery Note for Dr. Alvarez Reason for consult: needs AVF for HD access 58 F PMH CKD, HTN, DM, heroin/cocaine abuse, liver cirrhosis who has been admitted to [facility] for increased fatigue SOB and LE swelling. Patient has worsening CKD and will likely need HD in the future. Vascular Surgery was consulted for AVF placement. Patent has no specific complaints at this time. 12 point ROS negative unless otherwise stated. PMH: CKD, HTN, DM, cocaine and heroin abuse PSH: denies Social: cocaine and heroin abuse, ETOH use, current smoker All: NKDA Review of Systems - Review of Systems All systems: reviewed and no additional remarkable complaints except (as per HPI) Past Patient History - Infectious Disease Hx of Infectious Diseases: None - Past Medical History & Family History Past Medical History?: Yes - Past Social History Smoking Status: Light Smoker < 10 Cigarettes Daily - CARDIAC Hx Hypertension: Yes - PULMONARY Hx Tuberculosis: No - NEUROLOGICAL Hx Seizures: No - ENDOCRINE/METABOLIC Hx Diabetes Mellitus Type 2: Yes - HEMATOLOGICAL/ONCOLOGICAL Hx Human Immunodeficiency Virus (HIV): No - MUSCULOSKELETAL/RHEUMATOLOGICAL Hx Falls: No - GENITOURINARY/GYNECOLOGICAL Hx Sexually Transmitted Disorders: No - PSYCHIATRIC Hx Substance Use: Yes - SURGICAL HISTORY Hx Surgeries: No - ANESTHESIA Hx Anesthesia: No Meds Allergies/Adverse Reactions: Allergies Allergy/AdvReac Type Severity Reaction Status Date / Time No Known Allergies Allergy Verified 03/16/19 19:58 - Medications Medications: Current Medications Albuterol/Ipratropium (Duoneb 3 Mg/0.5 Mg (3 Ml) Ud) 3 ml INH RQ6 PRN PRN Reason: Shortness of Breath Amlodipine Besylate (Norvasc) 10 mg PO DAILY [facility] Last Admin: 03/19/19 10:37 Dose: 10 mg Carvedilol (Coreg) 12.5 mg PO BID [facility] Last Admin: 03/19/19 17:28 Dose: 12.5 mg Dextrose (Dextrose 50% Inj) 0 ml IV STAT PRN; Protocol PRN Reason: Hypoglycemia Protocol Dextrose (Glutose 15) 0 gm PO ONCE PRN; Protocol PRN Reason: Hypoglycemia Protocol Folic Acid (Folic Acid) 1 mg PO DAILY [facility] Last Admin: 03/19/19 10:34 Dose: 1 mg Glucagon (Glucagen Diagnostic Kit) 0 mg IM STAT PRN; Protocol PRN Reason: Hypoglycemia Protocol Heparin Sodium (Porcine) (Heparin) 5,000 units SC Q8 [facility] Last Admin: 03/19/19 21:54 Dose: Not Given Hydralazine HCl (Apresoline) 50 mg PO TID [facility] Last Admin: 03/19/19 17:28 Dose: 50 mg Dextrose (Dextrose 5% In Water 1000 Ml) 1,000 mls @ 0 mls/hr IV .Q0M PRN; Protocol PRN Reason: Hypoglycemia Protocol Insulin Human Regular (Novolin R) 0 unit SC ACHS [facility]; Protocol Last Admin: 03/19/19 21:54 Dose: Not Given Lorazepam (Ativan) 1 mg IVP Q6H PRN PRN Reason: Agitation Methadone HCl (Methadone) 10 mg PO Q24H [facility]; Taper Stop: 03/21/19 09:59 Last Admin: 03/19/19 10:34 Dose: 10 mg Multivitamins (Hexavitamin) 1 tab PO DAILY [facility] Last Admin: 03/19/19 10:34 Dose: 1 tab Nicotine (Nicoderm Cq) 1 patch TD DAILY [facility] Last Admin: 03/19/19 10:33 Dose: 1 patch Polyethylene Glycol (Miralax) 17 gm PO DAILY [facility] Last Admin: 03/19/19 10:37 Dose: 17 gm Sennosides (Senokot Tab) 8.6 mg PO DAILY [facility] Last Admin: 03/19/19 10:37 Dose: 8.6 mg Thiamine HCl (Vitamin B1 Tab) 100 mg PO DAILY [facility] Last Admin: 03/19/19 10:33 Dose: 100 mg Trazodone HCl (Desyrel) 100 mg PO HS [facility] Last Admin: 03/19/19 21:20 Dose: 100 mg Physical Exam - Additional Findings Additional findings: - Constitutional Appears: No Acute Distress - Head Exam Head Exam: ATRAUMATIC, NORMOCEPHALIC - Eye Exam Eye Exam: EOMI, Scleral icterus - ENT Exam ENT Exam: Mucous Membranes Moist - Respiratory Exam Respiratory Exam: NORMAL BREATHING PATTERN - Cardiovascular Exam Cardiovascular Exam: REGULAR RHYTHM - GI/Abdominal Exam GI & Abdominal Exam: Distended, Soft. absent: Guarding, Tenderness - Extremities Exam Extremities exam: Negative for: calf tenderness, pedal edema - Neurological Exam Neurological exam: Alert, Oriented x3 - Psychiatric Exam Psychiatric exam: Normal Affect, Normal Mood - Skin Skin Exam: Dry, Intact, Normal Color Results - Vital Signs Recent Vital Signs: Last Vital Signs Temp 97.5 F L 03/19/19 23:15 Pulse 69 03/19/19 23:15 Resp 20 03/19/19 23:15 BP 151/65 H 03/19/19 23:15 Pulse Ox 95 03/19/19 23:15 - Labs Result Diagrams: 03/19/19 11:55 03/19/19 11:55 Labs: Laboratory Results - last 24 hr 03/17/19 03/19/19 03/19/19 12:00 06:12 11:55 WBC 5.4 RBC 4.25 Hgb 13.0 Hct 40.5 MCV 95.2 MCH 30.5 MCHC 32.0 L RDW 15.7 H Plt Count 186 MPV 10.3 Neut % (Auto) 72.3 Lymph % (Auto) 11.2 L [place] % (Auto) 9.3 Eos % (Auto) 6.4 H Baso % (Auto) 0.8 Neut # (Auto) 3.9 Lymph # (Auto) 0.6 L [place] # (Auto) 0.5 Eos # (Auto) 0.3 Baso # (Auto) 0.0 Sodium Potassium Chloride Carbon Dioxide Anion Gap BUN Creatinine Est GFR ( Amer) Est GFR (Non-Af Amer) POC Glucose (mg/dL) 113 H Random Glucose Calcium Phosphorus Magnesium Total Bilirubin AST ALT Alkaline Phosphatase NT-Pro-B Natriuret Pep Total Protein Albumin Globulin Albumin/Globulin Ratio 25-OH Vitamin D Total JEAN-PAUL Screen Negative 03/19/19 03/19/19 03/19/19 11:55 11:55 21:49 WBC RBC Hgb Hct MCV MCH MCHC RDW Plt Count MPV Neut % (Auto) Lymph % (Auto) [place] % (Auto) Eos % (Auto) Baso % (Auto) Neut # (Auto) Lymph # (Auto) [place] # (Auto) Eos # (Auto) Baso # (Auto) Sodium 138 Potassium 4.1 Chloride 106 Carbon Dioxide 27 Anion Gap 9 L BUN 36 H Creatinine 2.8 H Est GFR ( Amer) 21 Est GFR (Non-Af Amer) 17 POC Glucose (mg/dL) 164 H Random Glucose 115 H D Calcium 9.1 Phosphorus 3.1 Magnesium 1.7 Total Bilirubin 0.4 AST 29 ALT 16 Alkaline Phosphatase 132 H NT-Pro-B Natriuret Pep 39050 H Total Protein 5.9 L Albumin 3.1 L Globulin 2.8 Albumin/Globulin Ratio 1.1 25-OH Vitamin D Total < 12.8 L JEAN-PAUL Screen Assessment & Plan - Assessment and Plan (Free Text) Assessment: 58 F with PMH heroin/cocaine abuse, HTN, DM, CKD, liver cirrhosis who presents with CKD and will require AVF for future HD Plan: - f/u vein mapping - f/u Nephro recommendations - Medical management as per primary - further recs per Dr. Kim Florez PGY2 - Date & Time Date: 03/20/19 Time: 06:25
--- NOTE | 2019-03-20 07:44 | CP.PCM.PN ---
<Alivia Vo - Last Filed: 03/20/19 10:41> Subjective - Date & Time of Evaluation Date of Evaluation: 03/20/19 Time of Evaluation: 07:42 - Subjective Subjective: PGY-1 Alivia Vo D.O. Medicine progress note for Dr. Helton's service: Patient was seen and examined this morning. She says she is tired. No new complaints. She went for vein mapping this morning. Leg swelling is present but improved from admission. She still complains of tenderness to palpation of her ankles. She had one small BM following the enema yesterday. She will receive a second enema today. Objective - Vital Signs/Intake and Output Vital Signs (last 24 hours): Temp Pulse Resp BP Pulse Ox 97.5 F L 69 20 151/65 H 95 03/19/19 23:15 03/19/19 23:15 03/19/19 23:15 03/19/19 23:15 03/19/19 23:15 - Medications Medications: Current Medications Albuterol/Ipratropium (Duoneb 3 Mg/0.5 Mg (3 Ml) Ud) 3 ml INH RQ6 PRN PRN Reason: Shortness of Breath Amlodipine Besylate (Norvasc) 10 mg PO DAILY [facility] Last Admin: 03/19/19 10:37 Dose: 10 mg Carvedilol (Coreg) 12.5 mg PO BID [facility] Last Admin: 03/19/19 17:28 Dose: 12.5 mg Dextrose (Dextrose 50% Inj) 0 ml IV STAT PRN; Protocol PRN Reason: Hypoglycemia Protocol Dextrose (Glutose 15) 0 gm PO ONCE PRN; Protocol PRN Reason: Hypoglycemia Protocol Folic Acid (Folic Acid) 1 mg PO DAILY [facility] Last Admin: 03/19/19 10:34 Dose: 1 mg Glucagon (Glucagen Diagnostic Kit) 0 mg IM STAT PRN; Protocol PRN Reason: Hypoglycemia Protocol Heparin Sodium (Porcine) (Heparin) 5,000 units SC Q8 [facility] Last Admin: 03/20/19 06:54 Dose: Not Given Hydralazine HCl (Apresoline) 50 mg PO TID [facility] Last Admin: 03/19/19 17:28 Dose: 50 mg Dextrose (Dextrose 5% In Water 1000 Ml) 1,000 mls @ 0 mls/hr IV .Q0M PRN; Protocol PRN Reason: Hypoglycemia Protocol Insulin Human Regular (Novolin R) 0 unit SC ACHS [facility]; Protocol Last Admin: 03/19/19 21:54 Dose: Not Given Lorazepam (Ativan) 1 mg IVP Q6H PRN PRN Reason: Agitation Methadone HCl (Methadone) 10 mg PO Q24H [facility]; Taper Stop: 03/21/19 09:59 Last Admin: 03/19/19 10:34 Dose: 10 mg Multivitamins (Hexavitamin) 1 tab PO DAILY [facility] Last Admin: 03/19/19 10:34 Dose: 1 tab Nicotine (Nicoderm Cq) 1 patch TD DAILY [facility] Last Admin: 03/19/19 10:33 Dose: 1 patch Polyethylene Glycol (Miralax) 17 gm PO DAILY [facility] Last Admin: 03/19/19 10:37 Dose: 17 gm Sennosides (Senokot Tab) 8.6 mg PO DAILY [facility] Last Admin: 03/19/19 10:37 Dose: 8.6 mg Thiamine HCl (Vitamin B1 Tab) 100 mg PO DAILY [facility] Last Admin: 03/19/19 10:33 Dose: 100 mg Trazodone HCl (Desyrel) 100 mg PO HS [facility] Last Admin: 03/19/19 21:20 Dose: 100 mg - Labs Labs: 03/19/19 11:55 03/19/19 11:55 PT 12.2 SECONDS (9.7-12.2) 03/16/19 21:09 INR 1.1 03/16/19 21:09 APTT 38.0 SECONDS (21-34) H 03/16/19 21:09 - Additional Findings Additional findings: - Constitutional Appears: Non-toxic, No Acute Distress - Head Exam Head Exam: ATRAUMATIC, NORMAL INSPECTION - Eye Exam Additional comments: R eye fixed laterally - ENT Exam ENT Exam: Mucous Membranes Moist - Respiratory Exam Respiratory Exam: Clear to Auscultation Bilateral, NORMAL BREATHING PATTERN - Cardiovascular Exam Cardiovascular Exam: RRR, +S1, +S2 - GI/Abdominal Exam GI & Abdominal Exam: Soft, Tenderness (b/l toward her sides), Normal Bowel S ounds. absent: Distended, Guarding Additional comments: obese - Extremities Exam Extremities Exam: Pedal Edema (1+ b/l to mid-calves), Tenderness, shiny skin RUE midline - Back Exam Back Exam: NORMAL INSPECTION - Neurological Exam Neurological Exam: Alert, Awake, Normal Gait, Oriented x3 - Psychiatric Exam Psychiatric exam: Normal Affect, Normal Mood - Skin Skin Exam: Dry, Normal Color, Warm Assessment and Plan - Assessment and Plan (Free Text) Assessment: Patient is a 58 yo female with CKD, HTN, T2DM, and polysubstance use (heroin and cocaine) who presented with leg swelling and abdominal pain. Patient found to have worsening kidney disease and severe constipation. Echo notable for severe pulm HTN. Nephro recommends renal biopsy and plans for dialysis. Patient had vein mapping. Plan: Chronic kidney disease, worsening - BUN 28-->37, Cr 2.6-->2.9 - UA: 2+ prot, 1+ blood, 17 WBC, 7 RBC - 03/2018 random prot >8 gm - D-dimer 634 - BNP 31,300--> 14,600--> 12,300 - H&H wnl - Serum osm 311 - Complement (C3, C4) wnl - Vein mapping done on 03/20 - 24-hr urine collection in progress- patient has to repeat as she did not properly collect all of her urine last time - Renal US: echogenic kidneys - Nephrology consulted ([facility] [place] rec kidney biopsy (was recommended to patient previously), avoid ACEI/ARB, patient will most likely need to start dialysis - Vascular surgery consulted ([facility])- vein mapping Bilateral lower extremity swelling and pleural effusions, acute- suspect cardiorenal disease +/- DM +/- HTN - CXR: cardiomegaly, L pleural effusion - EKG: NSR, PVCs - LE Dopplers: no DVT - Echo: EF 62%, mod-severe LVH, severe pulm HTN, mod TR - CT A/P: Mild CHF suspected. [id number] left and mild right pleural effusions identified. - BNP 31,300--> 14,600--> 12,300 - Trop negative - Monitor on telemetry - Fluid restriction 1500 mL - Strict Is & Os - 03/20: -200 mL - Daily weights - Duoneb Q6H PRN - Lasix 40 mg IV Q12H - Increase Coreg to 25 mg PO BID - Cardiology consulted ([facility]) Hypertension, chronic, poorly controlled, improving - Echo: mod-severe concentric LVH - Vitals Q4H - Lasix 40 mg IV Q12H - Norvasc 10 mg PO daily - Hydralazine 50 mg PO Q8H - Increase Coreg to 25 mg PO BID Constipation, acute on chronic - CT A/P: Prominent fecal loading is seen throughout the ascending through transverse large-bowel segments and is otherwise mild without gross mural thickening evident. - Senokot 8.6 mg PO daily - Miralax 17 g PO daily - Lactulose x1 on 03/19 - Mineral oil enema x1 on 03/19, x1 on 03/20 Hepatis steatosis, chronic - HIV and hepatitis negative - LFTs wnl - Albumin low (2.9) - Abd US: mild hepatomegaly. Diffuse increased echogenicity in the liver may reflect hepatic steatosis. Nodular contour of the liver could represent cirrhosis. Medical renal disease. Gallbladder is contracted but no cholelithiasis. Mild diffuse dilation of the common bile duct without evidence for choledocholithiasis. - CT A/P: Hepatomegaly noted without focal mass or gross intrahepatic biliary duct dilatation. Mild anasarca. - Hepatobiliary surgeon consulted ([place]) Vitamin D deficiency- suspect 2/2 kidney disease - 25-OH vit D <12.5 - Start Vitamin D 50,000 IU Q1WK on 03/20 (Friday) Polysubstance use disorder, chronic- heroin (intranasal), cocaine, tobacco, alcohol - UDS positive for cocaine and opiates - BAL <10 - HIV and hepatitis negative - CIWA (0) - Ativan 1 mg IV Q6H PRN - Trazodone 100 mg PO QHS - Methadone taper - Nicoderm daily - Multivitamin daily - Thiamine 100 mg PO daily - Folate 1 mg PO daily - Psychiatry consulted ([facility]) H/o type 2 diabetes mellitus, chronic - A1c 6 - Accuchecks ACHS - Range 110-160s - Hypoglycemia protocol - ISS low Adrenal mass/hyperplasia, chronic - CT A/P: Benign right adrenal adenoma suspected. Left adrenal hyperplasia identified and may coexistent right adrenal gland. - 1 mg Dexamethasone suppression test- AM cortisol low (4.3) Ppx: VTE: SCDs contraindicated, Heparin 5000 units SC Q8H GI: Pepcid 20 mg PO daily Diet: Heart healthy, renal Code status: full code Dispo: Worsening renal function. Pending renal biopsy. Possible hemodialysis. Case was discussed with attending, Dr. Helton. <Dai Helton V - Last Filed: 03/20/19 18:02> Objective - Vital Signs/Intake and Output Vital Signs (last 24 hours): Temp Pulse Resp BP Pulse Ox 98.4 F 83 20 156/78 H 95 03/20/19 15:52 03/20/19 15:52 03/20/19 15:52 03/20/19 17:29 03/20/19 15:52 Intake and Output: 03/20/19 03/20/19 06:59 18:59 Intake Total 415 Output Total 300 Balance 115 - Medications Medications: Current Medications Albuterol/Ipratropium (Duoneb 3 Mg/0.5 Mg (3 Ml) Ud) 3 ml INH RQ6 PRN PRN Reason: Shortness of Breath Amlodipine Besylate (Norvasc) 10 mg PO DAILY [facility] Last Admin: 03/20/19 10:05 Dose: 10 mg Carvedilol (Coreg) 25 mg PO BID [facility] Last Admin: 03/20/19 17:29 Dose: 25 mg Dextrose (Dextrose 50% Inj) 0 ml IV STAT PRN; Protocol PRN Reason: Hypoglycemia Protocol Dextrose (Glutose 15) 0 gm PO ONCE PRN; Protocol PRN Reason: Hypoglycemia Protocol Ergocalciferol (Drisdol 50,000 Intl Units Cap) 1 cap PO Q7D [facility] Stop: 06/05/19 09:31 Last Admin: 03/20/19 10:04 Dose: 1 cap Folic Acid (Folic Acid) 1 mg PO DAILY [facility] Last Admin: 03/20/19 10:04 Dose: 1 mg Furosemide (Lasix) 40 mg IVP Q12H [facility] Last Admin: 03/20/19 08:35 Dose: 40 mg Glucagon (Glucagen Diagnostic Kit) 0 mg IM STAT PRN; Protocol PRN Reason: Hypoglycemia Protocol Heparin Sodium (Porcine) (Heparin) 5,000 units SC Q8 [facility] Last Admin: 03/20/19 13:32 Dose: 5,000 units Hydralazine HCl (Apresoline) 50 mg PO TID [facility] Last Admin: 03/20/19 17:30 Dose: 50 mg Dextrose (Dextrose 5% In Water 1000 Ml) 1,000 mls @ 0 mls/hr IV .Q0M PRN; Protocol PRN Reason: Hypoglycemia Protocol Insulin Human Regular (Novolin R) 0 unit SC ACHS [facility]; Protocol Last Admin: 03/20/19 16:40 Dose: Not Given Lorazepam (Ativan) 1 mg IVP Q6H PRN PRN Reason: Agitation Methadone HCl (Methadone) 5 mg PO Q24H [facility]; Taper Stop: 03/21/19 09:59 Last Admin: 03/20/19 10:05 Dose: 5 mg Metolazone (Zaroxolyn) 2.5 mg PO DAILY [facility] Last Admin: 03/20/19 15:42 Dose: 2.5 mg Multivitamins (Hexavitamin) 1 tab PO DAILY [facility] Last Admin: 03/20/19 10:05 Dose: 1 tab Nicotine (Nicoderm Cq) 1 patch TD DAILY [facility] Last Admin: 03/20/19 10:04 Dose: 1 patch Polyethylene Glycol (Miralax) 17 gm PO DAILY [facility] Last Admin: 03/20/19 10:05 Dose: 17 gm Sennosides (Senokot Tab) 8.6 mg PO DAILY [facility] Last Admin: 03/20/19 10:05 Dose: 8.6 mg Thiamine HCl (Vitamin B1 Tab) 100 mg PO DAILY [facility] Last Admin: 03/20/19 10:04 Dose: 100 mg Trazodone HCl (Desyrel) 100 mg PO HS [facility] Last Admin: 03/19/19 21:20 Dose: 100 mg - Labs Labs: 03/20/19 07:16 03/20/19 17:00 PT 12.2 SECONDS (9.7-12.2) 03/16/19 21:09 INR 1.1 03/16/19 21:09 APTT 38.0 SECONDS (21-34) H 03/16/19 21:09 Attending/Attestation - Attestation I have personally seen and examined this patient.: Yes I have fully participated in the care of the patient.: Yes I have reviewed all pertinent clinical information, including history, physical exam and plan: Yes
[2019-03-20 07:47] LABS: BASO % 0.8 % (0.0-2.0); EOS # 0.1 K/uL (0.0-0.7); EOS % 2.3 % (0.0-4.0); HEMOGLOBIN 12.6 g/dL (11.0-16.0); LYMPH # 0.7 K/uL (1.0-4.3); LYMPH % 13.4 % (20.0-40.0); MEAN CELL VOLUME 94.5 fL (81.0-99.0); MEAN CORPUSCULAR HEMOGLOBIN 31.2 pg (27.0-31.0); MEAN PLATELET VOLUME 10.9 fL (7.2-11.7); MONO # 0.4 K/uL (0.0-0.8); MONO % 7.3 % (0.0-10.0); NEUT # 3.7 K/uL (1.8-7.0); NEUT % 76.2 % (50.0-75.0); RBC 4.03 Mil/uL (3.80-5.20); RED CELL DISTRIBUTION WIDTH 15.7 % (11.5-14.5); WHITE BLOOD COUNT 4.9 K/uL (4.8-10.8)
[2019-03-20 08:02] LABS: ALB/GLOB RATIO 1.1 (1.0-2.1); ALBUMIN 2.9 g/dL (3.5-5.0); CALCIUM 8.9 mg/dl (8.6-10.4)
[2019-03-20] MEDS: (Novolin R) Insulin Human Regular 100 units/ml vial SC SCH ×4 (08:26→21:44)
[2019-03-20] MEDS ORDERED: Mineral Oil Enema 135 ml PR ONE (09:16)
[2019-03-20] MEDS ORDERED: Ergocalciferol 50,000 Intl Units Cap PO SCH (09:30)
[2019-03-20] MEDS: POLYETHYLENE GLYCOL 3350 17 GM/Dose PACKET PO SCH (10:05)
[2019-03-20] MEDS: Multiple Vitamins Tab PO SCH (10:05)
[2019-03-20] MEDS ORDERED: metOLazone 2.5 MG TAB PO SCH (14:30)
[2019-03-20 17:47] LABS: URINE 24 HOUR TOTAL PROTEIN 1916.8 mg/24hr (42-225); URINE CREATININE 39.4 mg/dL
--- NOTE | 2019-03-20 23:54 | CP.PCM.PN ---
Subjective - Date & Time of Evaluation Date of Evaluation: 03/20/19 Time of Evaluation: 14:00 - Subjective Subjective: Patient reports leg swelling improved but still with significant dyspnea; not urinating excessively despite being on diuretics; was eating some outside food; Objective - Vital Signs/Intake and Output Vital Signs (last 24 hours): Temp Pulse Resp BP Pulse Ox 98.4 F 70 20 144/81 95 03/20/19 15:52 03/20/19 18:00 03/20/19 15:52 03/20/19 21:00 03/20/19 15:52 Intake and Output: 03/20/19 03/21/19 18:59 06:59 Intake Total 415 400 Output Total 300 300 Balance 115 100 - Medications Medications: Current Medications Albuterol/Ipratropium (Duoneb 3 Mg/0.5 Mg (3 Ml) Ud) 3 ml INH RQ6 PRN PRN Reason: Shortness of Breath Amlodipine Besylate (Norvasc) 10 mg PO DAILY [facility] Last Admin: 03/20/19 10:05 Dose: 10 mg Carvedilol (Coreg) 25 mg PO BID [facility] Last Admin: 03/20/19 17:29 Dose: 25 mg Dextrose (Dextrose 50% Inj) 0 ml IV STAT PRN; Protocol PRN Reason: Hypoglycemia Protocol Dextrose (Glutose 15) 0 gm PO ONCE PRN; Protocol PRN Reason: Hypoglycemia Protocol Ergocalciferol (Drisdol 50,000 Intl Units Cap) 1 cap PO Q7D [facility] Stop: 06/05/19 09:31 Last Admin: 03/20/19 10:04 Dose: 1 cap Folic Acid (Folic Acid) 1 mg PO DAILY [facility] Last Admin: 03/20/19 10:04 Dose: 1 mg Furosemide (Lasix) 40 mg IVP Q12H [facility] Last Admin: 03/20/19 21:00 Dose: 40 mg Glucagon (Glucagen Diagnostic Kit) 0 mg IM STAT PRN; Protocol PRN Reason: Hypoglycemia Protocol Heparin Sodium (Porcine) (Heparin) 5,000 units SC Q8 [facility] Last Admin: 03/20/19 21:35 Dose: Not Given Hydralazine HCl (Apresoline) 50 mg PO TID [facility] Last Admin: 03/20/19 17:30 Dose: 50 mg Dextrose (Dextrose 5% In Water 1000 Ml) 1,000 mls @ 0 mls/hr IV .Q0M PRN; Protocol PRN Reason: Hypoglycemia Protocol Insulin Human Regular (Novolin R) 0 unit SC ACHS [facility]; Protocol Last Admin: 03/20/19 21:44 Dose: Not Given Lorazepam (Ativan) 1 mg IVP Q6H PRN PRN Reason: Agitation Methadone HCl (Methadone) 5 mg PO Q24H [facility]; Taper Stop: 03/21/19 09:59 Last Admin: 03/20/19 10:05 Dose: 5 mg Metolazone (Zaroxolyn) 2.5 mg PO DAILY [facility] Last Admin: 03/20/19 15:42 Dose: 2.5 mg Multivitamins (Hexavitamin) 1 tab PO DAILY [facility] Last Admin: 03/20/19 10:05 Dose: 1 tab Nicotine (Nicoderm Cq) 1 patch TD DAILY [facility] Last Admin: 03/20/19 10:04 Dose: 1 patch Polyethylene Glycol (Miralax) 17 gm PO DAILY [facility] Last Admin: 03/20/19 10:05 Dose: 17 gm Sennosides (Senokot Tab) 8.6 mg PO DAILY [facility] Last Admin: 03/20/19 10:05 Dose: 8.6 mg Thiamine HCl (Vitamin B1 Tab) 100 mg PO DAILY [facility] Last Admin: 03/20/19 10:04 Dose: 100 mg Trazodone HCl (Desyrel) 100 mg PO HS [facility] Last Admin: 03/20/19 21:33 Dose: 100 mg - Labs Labs: 03/20/19 07:16 03/20/19 17:00 PT 12.2 SECONDS (9.7-12.2) 03/16/19 21:09 INR 1.1 03/16/19 21:09 APTT 38.0 SECONDS (21-34) H 03/16/19 21:09 - Constitutional Appears: Non-toxic, No Acute Distress - Eye Exam Eye Exam: Normal appearance - Respiratory Exam Respiratory Exam: Clear to Ausculation Bilateral. absent: Respiratory Distress - Cardiovascular Exam Cardiovascular Exam: RRR, +S1, +S2 - GI/Abdominal Exam GI & Abdominal Exam: Soft. absent: Distended, Tenderness - Extremities Exam Additional comments: moderate b/l lower leg edema; - Neurological Exam Neurological Exam: Alert, Awake - Psychiatric Exam Psychiatric exam: Normal Mood. absent: Agitated - Skin Skin Exam: Warm. absent: Cyanosis Assessment and Plan (1) SUSANNAH (acute kidney injury) Assessment & Plan: SUSANNAH vs progression of CKD, likely the latter; repeat CrCl again very low but again question of incomplete collection; proteinuric kidney disease in the setting of DM, uncontrolled htn and cocaine use; will obtain renal biopsy on Friday mainly for prognostic purposes (will help determine degree of underlying damage); -avoid nephrotoxic agents; -NPO past MN on Friday; Status: Acute (2) Hypertensive chronic kidney disease Assessment & Plan: BP still uncontrolled, agree with increasing coreg to 25 mg bid; continue rest of meds; f/u serologic workup for secondary causes of hypertension; Status: Acute (3) CHF (congestive heart failure) Assessment & Plan: Acute decompensated diastolic CHF w/ pulm htn; still volume overloaded; -continue IV lasix 40 mg bid, adding metolazone 2.5 mg daily; -patient counseled on need for low salt diet (seen eating outside food today); Status: Acute (4) Proteinuria Assessment & Plan: 3g on 24 hr collection; serologic workup essentially unremarkable; ADRIANA blockade contraindicated at this late stage of renal failure; Status: Chronic
[2019-03-21] MEDS: (Novolin R) Insulin Human Regular 100 units/ml vial SC SCH ×4 (07:14→21:56)
--- NOTE | 2019-03-21 07:36 | CP.PCM.PN ---
Subjective - Date & Time of Evaluation Date of Evaluation: 03/21/19 Time of Evaluation: 07:35 - Subjective Subjective: PGY-1 Alivia Vo D.O. Medicine progress note for Dr. Helton's service: Patient was seen and examined this morning. Objective - Vital Signs/Intake and Output Vital Signs (last 24 hours): Temp Pulse Resp BP Pulse Ox 98.1 F 58 L 20 153/68 H 97 03/21/19 04:48 03/21/19 04:48 03/21/19 04:48 03/21/19 04:48 03/21/19 04:48 Intake and Output: 03/21/19 03/21/19 06:59 18:59 Intake Total 650 Output Total 1350 Balance -700 - Medications Medications: Current Medications Albuterol/Ipratropium (Duoneb 3 Mg/0.5 Mg (3 Ml) Ud) 3 ml INH RQ6 PRN PRN Reason: Shortness of Breath Amlodipine Besylate (Norvasc) 10 mg PO DAILY [facility] Last Admin: 03/20/19 10:05 Dose: 10 mg Carvedilol (Coreg) 25 mg PO BID [facility] Last Admin: 03/20/19 17:29 Dose: 25 mg Dextrose (Dextrose 50% Inj) 0 ml IV STAT PRN; Protocol PRN Reason: Hypoglycemia Protocol Dextrose (Glutose 15) 0 gm PO ONCE PRN; Protocol PRN Reason: Hypoglycemia Protocol Ergocalciferol (Drisdol 50,000 Intl Units Cap) 1 cap PO Q7D [facility] Stop: 06/05/19 09:31 Last Admin: 03/20/19 10:04 Dose: 1 cap Folic Acid (Folic Acid) 1 mg PO DAILY [facility] Last Admin: 03/20/19 10:04 Dose: 1 mg Furosemide (Lasix) 40 mg IVP Q12H [facility] Last Admin: 03/20/19 21:00 Dose: 40 mg Glucagon (Glucagen Diagnostic Kit) 0 mg IM STAT PRN; Protocol PRN Reason: Hypoglycemia Protocol Heparin Sodium (Porcine) (Heparin) 5,000 units SC Q8 [facility] Last Admin: 03/21/19 06:12 Dose: Not Given Hydralazine HCl (Apresoline) 50 mg PO TID [facility] Last Admin: 03/20/19 17:30 Dose: 50 mg Dextrose (Dextrose 5% In Water 1000 Ml) 1,000 mls @ 0 mls/hr IV .Q0M PRN; Protocol PRN Reason: Hypoglycemia Protocol Insulin Human Regular (Novolin R) 0 unit SC ACHS [facility]; Protocol Last Admin: 03/21/19 07:14 Dose: Not Given Lorazepam (Ativan) 1 mg IVP Q6H PRN PRN Reason: Agitation Methadone HCl (Methadone) 5 mg PO Q24H [facility]; Taper Stop: 03/21/19 09:59 Last Admin: 03/20/19 10:05 Dose: 5 mg Metolazone (Zaroxolyn) 2.5 mg PO DAILY [facility] Last Admin: 03/20/19 15:42 Dose: 2.5 mg Multivitamins (Hexavitamin) 1 tab PO DAILY [facility] Last Admin: 03/20/19 10:05 Dose: 1 tab Nicotine (Nicoderm Cq) 1 patch TD DAILY [facility] Last Admin: 03/20/19 10:04 Dose: 1 patch Polyethylene Glycol (Miralax) 17 gm PO DAILY [facility] Last Admin: 03/20/19 10:05 Dose: 17 gm Sennosides (Senokot Tab) 8.6 mg PO DAILY [facility] Last Admin: 03/20/19 10:05 Dose: 8.6 mg Thiamine HCl (Vitamin B1 Tab) 100 mg PO DAILY [facility] Last Admin: 03/20/19 10:04 Dose: 100 mg Trazodone HCl (Desyrel) 100 mg PO HS [facility] Last Admin: 03/20/19 21:33 Dose: 100 mg - Labs Labs: 03/20/19 07:16 03/20/19 17:00 PT 12.2 SECONDS (9.7-12.2) 03/16/19 21:09 INR 1.1 03/16/19 21:09 APTT 38.0 SECONDS (21-34) H 03/16/19 21:09 - Additional Findings Additional findings: - Constitutional Appears: Non-toxic, No Acute Distress - Head Exam Head Exam: ATRAUMATIC, NORMAL INSPECTION - Eye Exam Additional comments: R eye fixed laterally - ENT Exam ENT Exam: Mucous Membranes Moist - Respiratory Exam Respiratory Exam: Clear to Auscultation Bilateral, NORMAL BREATHING PATTERN - Cardiovascular Exam Cardiovascular Exam: RRR, +S1, +S2 - GI/Abdominal Exam GI & Abdominal Exam: Soft, Tenderness (b/l toward her sides), Normal Bowel Sounds. absent: Distended, Guarding Additional comments: obese - Extremities Exam Extremities Exam: Pedal Edema (1+ b/l to mid-calves), Tenderness, shiny skin RUE midline - Back Exam Back Exam: NORMAL INSPECTION - Neurological Exam Neurological Exam: Alert, Awake, Normal Gait, Oriented x3 - Psychiatric Exam Psychiatric exam: Normal Affect, Normal Mood - Skin Skin Exam: Dry, Normal Color, Warm Assessment and Plan - Assessment and Plan (Free Text) Assessment: Patient is a 58 yo female with CKD, HTN, T2DM, and polysubstance use (heroin and cocaine) who presented with leg swelling and abdominal pain. Patient found to have worsening kidney disease and severe constipation. Echo notable for severe pulm HTN. Nephro recommends renal biopsy and plans for dialysis. Patient had vein mapping. Plan: Chronic kidney disease, worsening - BUN 28-->37, Cr 2.6-->2.9 - UA: 2+ prot, 1+ blood, 17 WBC, 7 RBC - 03/2018 random prot >8 gm - D-dimer 634 - BNP 31,300--> 14,600--> 12,300 - H&H wnl - Serum osm 311 - Complement (C3, C4) wnl - Vein mapping done on 03/20 - 24-hr urine collection in progress- patient has to repeat as she did not properly collect all of her urine last time - Renal US: echogenic kidneys - [place] [place] (was recommended to patient previously), avoid ACEI/ARB, patient will most likely need to start dialysis - Vascular surgery consulted ([place])- vein mapping Bilateral lower extremity swelling and pleural effusions, acute- suspect cardiorenal disease +/- DM +/- HTN - CXR: cardiomegaly, L pleural effusion - EKG: NSR, PVCs - LE Dopplers: no DVT - Echo: EF 62%, mod-severe LVH, severe pulm HTN, mod TR - CT A/P: Mild CHF suspected. [id number] left and mild right pleural effusions identified. - BNP 31,300--> 14,600--> 12,300 - Trop negative - Monitor on telemetry - Fluid restriction 1500 mL - Strict Is & Os - 03/20: -200 mL - Daily weights - Duoneb Q6H PRN - Lasix 40 mg IV Q12H - Increase Coreg to 25 mg PO BID - Cardiology consulted ([facility]) Hypertension, chronic, poorly controlled, improving - Echo: mod-severe concentric LVH - Vitals Q4H - Lasix 40 mg IV Q12H - Norvasc 10 mg PO daily - Hydralazine 50 mg PO Q8H - Increase Coreg to 25 mg PO BID Constipation, acute on chronic - CT A/P: Prominent fecal loading is seen throughout the ascending through transverse large-bowel segments and is otherwise mild without gross mural thickening evident. - Senokot 8.6 mg PO daily - Miralax 17 g PO daily - Lactulose x1 on 03/19 - Mineral oil enema x1 on 03/19, x1 on 03/20 Hepatis steatosis, chronic - HIV and hepatitis negative - LFTs wnl - Albumin low (2.9) - Abd US: mild hepatomegaly. Diffuse increased echogenicity in the liver may reflect hepatic steatosis. Nodular contour of the liver could represent cirrhosis. Medical renal disease. Gallbladder is contracted but no cholelithiasis. Mild diffuse dilation of the common bile duct without evidence for choledocholithiasis. - CT A/P: Hepatomegaly noted without focal mass or gross intrahepatic biliary duct dilatation. Mild anasarca. - Hepatobiliary surgeon consulted ([facility]) Vitamin D deficiency- suspect 2/2 kidney disease - 25-OH vit D <12.5 - Start Vitamin D 50,000 IU Q1WK on 03/20 (Friday) Polysubstance use disorder, chronic- heroin (intranasal), cocaine, tobacco, alcohol - UDS positive for cocaine and opiates - BAL <10 - HIV and hepatitis negative - CIWA (0) - Ativan 1 mg IV Q6H PRN - Trazodone 100 mg PO QHS - Methadone taper - Nicoderm daily - Multivitamin daily - Thiamine 100 mg PO daily - Folate 1 mg PO daily - Psychiatry consulted ([facility]) H/o type 2 diabetes mellitus, chronic - A1c 6 - Accuchecks ACHS - Range 110-160s - Hypoglycemia protocol - ISS low Adrenal mass/hyperplasia, chronic - CT A/P: Benign right adrenal adenoma suspected. Left adrenal hyperplasia identified and may coexistent right adrenal gland. - 1 mg Dexamethasone suppression test- AM cortisol low (4.3) Ppx: VTE: SCDs contraindicated, Heparin 5000 units SC Q8H GI: Pepcid 20 mg PO daily Diet: Heart healthy, renal Code status: full code Dispo: Worsening renal function. Pending renal biopsy. Possible hemodialysis. Case was discussed with attending, Dr. Helton.
[2019-03-21 08:41] LABS: ALB/GLOB RATIO 1.2 (1.0-2.1); ALBUMIN 3.1 g/dL (3.5-5.0); CALCIUM 8.9 mg/dl (8.6-10.4)
[2019-03-21] MEDS: Multiple Vitamins Tab PO SCH (10:38)
[2019-03-21] MEDS: metOLazone 5 MG TAB PO SCH ×2 (10:39)
[2019-03-21] MEDS: POLYETHYLENE GLYCOL 3350 17 GM/Dose PACKET PO SCH (10:39)
--- NOTE | 2019-03-21 11:01 | CP.PCM.PN ---
Subjective - Date & Time of Evaluation Date of Evaluation: 03/21/19 Time of Evaluation: 10:55 - Subjective Subjective: Medical Attending Note: Patient see and examined this morning. Patient reports she feels short of breathe. Patient denies chest pain, denies palpitations, reports had a small bowel movement post Mineral enema yesterday, leg swelling is about the same. Objective - Vital Signs/Intake and Output Vital Signs (last 24 hours): Temp Pulse Resp BP Pulse Ox 99.2 F 59 L 20 166/81 H 100 03/21/19 07:00 03/21/19 07:08 03/21/19 07:00 03/21/19 10:37 03/21/19 07:00 Intake and Output: 03/21/19 03/21/19 06:59 18:59 Intake Total 650 Output Total 1350 Balance -700 - Medications Medications: Current Medications Albuterol/Ipratropium (Duoneb 3 Mg/0.5 Mg (3 Ml) Ud) 3 ml INH RQ6 PRN PRN Reason: Shortness of Breath Amlodipine Besylate (Norvasc) 10 mg PO DAILY [facility] Last Admin: 03/21/19 10:37 Dose: 10 mg Carvedilol (Coreg) 25 mg PO BID [facility] Last Admin: 03/21/19 10:37 Dose: 25 mg Dextrose (Dextrose 50% Inj) 0 ml IV STAT PRN; Protocol PRN Reason: Hypoglycemia Protocol Dextrose (Glutose 15) 0 gm PO ONCE PRN; Protocol PRN Reason: Hypoglycemia Protocol Ergocalciferol (Drisdol 50,000 Intl Units Cap) 1 cap PO Q7D [facility] Stop: 06/05/19 09:31 Last Admin: 03/20/19 10:04 Dose: 1 cap Folic Acid (Folic Acid) 1 mg PO DAILY [facility] Last Admin: 03/21/19 10:38 Dose: 1 mg Furosemide (Lasix) 40 mg IVP Q12H [facility] Last Admin: 03/21/19 10:37 Dose: 40 mg Glucagon (Glucagen Diagnostic Kit) 0 mg IM STAT PRN; Protocol PRN Reason: Hypoglycemia Protocol Heparin Sodium (Porcine) (Heparin) 5,000 units SC Q8 [facility] Last Admin: 03/21/19 06:12 Dose: Not Given Hydralazine HCl (Apresoline) 50 mg PO TID [facility] Last Admin: 03/21/19 10:37 Dose: 50 mg Dextrose (Dextrose 5% In Water 1000 Ml) 1,000 mls @ 0 mls/hr IV .Q0M PRN; Protocol PRN Reason: Hypoglycemia Protocol Insulin Human Regular (Novolin R) 0 unit SC ACHS [facility]; Protocol Last Admin: 03/21/19 07:14 Dose: Not Given Lorazepam (Ativan) 1 mg IVP Q6H PRN PRN Reason: Agitation Metolazone (Zaroxolyn) 5 mg PO DAILY [facility] Last Admin: 03/21/19 10:39 Dose: 5 mg Multivitamins (Hexavitamin) 1 tab PO DAILY [facility] Last Admin: 03/21/19 10:38 Dose: 1 tab Nicotine (Nicoderm Cq) 1 patch TD DAILY [facility] Last Admin: 03/21/19 10:38 Dose: 1 patch Polyethylene Glycol (Miralax) 17 gm PO DAILY [facility] Last Admin: 03/21/19 10:39 Dose: 17 gm Sennosides (Senokot Tab) 8.6 mg PO DAILY [facility] Last Admin: 03/21/19 10:38 Dose: 8.6 mg Thiamine HCl (Vitamin B1 Tab) 100 mg PO DAILY [facility] Last Admin: 03/21/19 10:37 Dose: 100 mg Trazodone HCl (Desyrel) 100 mg PO HS [facility] Last Admin: 03/20/19 21:33 Dose: 100 mg - Labs Labs: 03/20/19 07:16 03/21/19 07:47 PT 12.2 SECONDS (9.7-12.2) 03/16/19 21:09 INR 1.1 03/16/19 21:09 APTT 38.0 SECONDS (21-34) H 03/16/19 21:09 - Constitutional Appears: Non-toxic, No Acute Distress - ENT Exam ENT Exam: Mucous Membranes Moist - Respiratory Exam Respiratory Exam: Decreased Breath Sounds, NORMAL BREATHING PATTERN. absent: Rales, Rhonchi, Wheezes - Cardiovascular Exam Cardiovascular Exam: REGULAR RHYTHM, +S1, +S2 - GI/Abdominal Exam GI & Abdominal Exam: Distended, Soft, Normal Bowel Sounds. absent: Guarding, Rigid, Tenderness, Rebound - Extremities Exam Extremities Exam: Pedal Edema - Neurological Exam Neurological Exam: Alert, Awake, Oriented x3 - Skin Skin Exam: Dry, Intact, Normal Color, Warm Assessment and Plan (1) SUSANNAH (acute kidney injury) Status: Acute (2) CHF (congestive heart failure) Status: Acute (3) Hypertensive urgency Status: Acute (4) CKD (chronic kidney disease), stage III Status: Chronic (5) Proteinuria Status: Chronic (6) Prophylactic measure Status: Acute Attending/Attestation - Attestation I have personally seen and examined this patient.: Yes I have fully participated in the care of the patient.: Yes I have reviewed all pertinent clinical information, including history, physical exam and plan: Yes Notes (Text): Patient seen, examined and case discussed with day-time resident. Patient seen this morning. She reports she had small bowel movement following second Mineral oil enema. Patient's blood pressure remains uncontrolled. Added Minoxidil 2.5mg PO daily. Discussed with nephrology and surgery resident, plan is for renal biopsy tomorrow with interventional radiologist. Per nephrology, will discuss with vascular to determine if/when patient requires initiated this admission. Updated assessment and plan noted below. Assessment/Plan 1. Hypertensive urgency Assessment/plan * Contributing factors including noncompliance, and heroin/cocaine withdrawal * Cardiology on board help appreciated * Nephrology on board help appreciated * Norvasc 10 mg once a day * Coreg 25mg PO bid * Lasix 40 mg IV twice a day * Hydralazine 50 mg p.o. 3 times daily * Metolazone 5mg PO daily * Minoxdil 2.5mg PO daily * Continue to monitor on telemetry * Echocardiogram (03/17/19): moderate to severe concentric left ventricular hypertrophy, left ventricular function is normal, left ventricular ejection fraction is within the normal range, normal LV segmental wall motion, left ventricular diastolic function is normal, trace to mild aortic regurgitation, moderate tricuspid regurgitation, severe pulmonary hypertension, mild pulmonic valvular regurgitation 2. Congestive Heart Failure, Exacerbation Newly Diagnosed Severe Pulmonary Hypertension Assessment/plan * Patient has risk factors for heart failure including hypertension diabetes. Patient noted to have an elevated proBNP * Cardiology on board help appreciated * Nephrology on board help appreciated * Norvasc 10 mg once a day * Coreg 25mg PO bid * Lasix 40 mg IV twice a day * Hydralazine 50 mg p.o. 3 times daily * Metolazone 5mg PO daily * Minoxdil 2.5mg PO daily * Continue to monitor on telemetry * Echocardiogram (03/17/19): moderate to severe concentric left ventricular hypertrophy, left ventricular function is normal, left ventricular ejection fraction is within the normal range, normal LV segmental wall motion, left ventricular diastolic function is normal, trace to mild aortic regurgitation, moderate tricuspid regurgitation, severe pulmonary hypertension, mild pulmonic valvular regurgitation * Intake and output * Fluid restriction 3. Acute on chronic renal insufficiency Renal Cyst Assessment/plan * Nephrology on board help appreciated * Vascular surgery on board help appreciated * Abdominal US (03/17/19): right and left kidney noted in the body of the report: right kidney measures 10.0cm, diffuse increased echogenicity. No calculus, mass, or hydronephrosis, left kidney measures 9.4cm. diffuse increased echogenicitiy. no calculus, mass, or hydronephrosis. 1.4 X1.3CM simple cyst in the lower pole * Patient underwent 24 hour urine collection however less amount compared to last trial--->patient admits she did not collect all of it. * Discussed with nephrology, recommend for renal biopsy with IR. Hold dialysis until complete renal biopsy. Patient is off Aspirin for at least 5 days. 4. History of diabetes Assessment/plan * Hypoglycemic protocol * Accu-Cheks q. before meals at bedtime * a1c: 6.0 * off aspirin for renal biopsy 5. Heroin abuse and use Assessment/plan * Psychiatry on consult help appreciated * Patient noted EKG normal QT if methadone is recommended 6. Cocaine use Assessment/plan * Patient is aware that she puts herself at risk for arrhythmia cardiac arrest and with cocaine along 7. Leg Edema Assessment/Plan * Arterial doppler (03/19/19): right ELMA and PVR: moderate to severe arterial insufficiency; left ELMA and PVR mild to moderate arterial insuffiency, beginning at the popliteral artery level. * Venous doppler: negative for DVT 8. Peripheral Vascular Disease Assessment/Plan * Arterial doppler (03/19/19): right ELMA and PVR: moderate to severe arterial insufficiency; left ELMA and PVR mild to moderate arterial insuffiency, beginning at the popliteral artery level. * Off aspirin in preparation for renal biopsy; * Contributing: hypertension, diabetes, drug use 9 . Abdominal Pain Opioid Induced Constipation Assessment/Plan * CT Abdomen/Pelvis (PO contrast): hepatomegaly noted without focal mass or gross intrahepatic biliary duct dilatation. Prominent fecal loading is seen throught the ascending through transverse large bowel segments and is otherwise mild without shireen mural thickening evident. Benign right adrenal adenoma suspected. Left adrenal hyperplasia identifed and may coexistent right adrenal gland. Mild anasarca. Mild bilateral inguinal lymphadenopathy. Mild chf suspected. Mild to moderate left and mild right pleural effusions identifed. * atient's abdominal ultrasound reviewed noting mild hepatomegaly. Diffuse increased echogenicity in the liver may reflect hepatic steatosis. Nodular contour of the liver could represent cirrhosis. Medical renal disease. Gallbladder is contracted but no cholelithiasis. Mild diffuse dilation of the common bile duct without evidence for choledocholithiasis. * Patient has mineral oil enema 03/19; 03/20 had has some bowel movements * Miralax daily * Senna 1 tab PO daily 10. Hepatomegaly Assessment/Plan * HIV and hepatitis negative * contributing: alcohol use, drug use, heart failure * Abd US: mild hepatomegaly. Diffuse increased echogenicity in the liver may reflect hepatic steatosis. Nodular contour of the liver could represent cirrhosis. Medical renal disease. Gallbladder is contracted but no cholelithiasis. Mild diffuse dilation of the common bile duct without evidence for choledocholithiasis. * CT A/P: Hepatomegaly noted without focal mass or gross intrahepatic biliary duct dilatation. Mild anasarca. 11. Vitamin D deficiency- suspect 2/2 kidney disease Assessment/Plan * 25-OH vit D <12.5 * Start Vitamin D 50,000 IU Q1WK on 03/20 (Friday) for 8-12 weeks 12. Polysubstance use disorder Assessment/Plan * her use includes: heroin (intranasal), cocaine, tobacco, alcohol * Psychiatry consult * Completed Methadone 03/18-03/21/19 * Trazodone 100mg POqHS * UDS: cocaine and opiates * MVI, Thiamine, Folic acid 13. Adrenal mass/hyperplasia, chronic Assessment/Plan * CT A/P: Benign right adrenal adenoma suspected. Left adrenal hyperplasia identified and may coexistent right adrenal gland. * 1 mg Dexamethasone suppression test- AM cortisol low (4.3) 14. Prophylactic measure * Heparin 5000 units subq8H * Held in preparation for renal biopsy * Pepcid 20mg PO daily * NPO for renal biopsy Disposition: Renal biopsy in light of worsening renal function. pending nephrology to determine when to intiate dialysis. monitor blood pressure
[2019-03-21 11:36] LABS: BASO # 0.1 K/uL (0.0-0.2); EOS # 0.3 K/uL (0.0-0.7); EOS % 5.2 % (0.0-4.0); HEMOGLOBIN 12.6 g/dL (11.0-16.0); LYMPH # 0.8 K/uL (1.0-4.3); LYMPH % 15.9 % (20.0-40.0); MEAN CELL VOLUME 94.9 fL (81.0-99.0); MEAN CORPUSCULAR HGB CONC 32.6 g/dL (33.0-37.0); MEAN PLATELET VOLUME 10.7 fL (7.2-11.7); MONO # 0.4 K/uL (0.0-0.8); MONO % 8.3 % (0.0-10.0); NEUT # 3.6 K/uL (1.8-7.0); NEUT % 69.6 % (50.0-75.0); RBC 4.07 Mil/uL (3.80-5.20); RED CELL DISTRIBUTION WIDTH 15.7 % (11.5-14.5); WHITE BLOOD COUNT 5.2 K/uL (4.8-10.8)
--- NOTE | 2019-03-21 23:47 | CP.PCM.PN ---
Subjective - Date & Time of Evaluation Date of Evaluation: 03/21/19 Time of Evaluation: 22:30 - Subjective Subjective: Patient reports shortness of breath somewhat improved; tolerating diet; still with significant leg swelling; says she's urinating more today; Objective - Vital Signs/Intake and Output Vital Signs (last 24 hours): Temp Pulse Resp BP Pulse Ox 98.1 F 73 20 156/58 H 95 03/21/19 16:00 03/21/19 16:30 03/21/19 16:00 03/21/19 20:37 03/21/19 16:00 Intake and Output: 03/21/19 03/22/19 18:59 06:59 Intake Total 430 Output Total 400 Balance 30 - Medications Medications: Current Medications Albuterol/Ipratropium (Duoneb 3 Mg/0.5 Mg (3 Ml) Ud) 3 ml INH RQ6 PRN PRN Reason: Shortness of Breath Amlodipine Besylate (Norvasc) 10 mg PO DAILY [facility] Last Admin: 03/21/19 10:37 Dose: 10 mg Carvedilol (Coreg) 25 mg PO BID [facility] Last Admin: 03/21/19 18:04 Dose: 25 mg Dextrose (Dextrose 50% Inj) 0 ml IV STAT PRN; Protocol PRN Reason: Hypoglycemia Protocol Dextrose (Glutose 15) 0 gm PO ONCE PRN; Protocol PRN Reason: Hypoglycemia Protocol Ergocalciferol (Drisdol 50,000 Intl Units Cap) 1 cap PO Q7D [facility] Stop: 06/05/19 09:31 Last Admin: 03/20/19 10:04 Dose: 1 cap Folic Acid (Folic Acid) 1 mg PO DAILY [facility] Last Admin: 03/21/19 10:38 Dose: 1 mg Furosemide (Lasix) 40 mg IVP Q12H [facility] Last Admin: 03/21/19 20:37 Dose: 40 mg Glucagon (Glucagen Diagnostic Kit) 0 mg IM STAT PRN; Protocol PRN Reason: Hypoglycemia Protocol Heparin Sodium (Porcine) (Heparin) 5,000 units SC Q8 [facility] Last Admin: 03/21/19 21:59 Dose: Not Given Hydralazine HCl (Apresoline) 50 mg PO TID [facility] Last Admin: 03/21/19 18:04 Dose: 50 mg Dextrose (Dextrose 5% In Water 1000 Ml) 1,000 mls @ 0 mls/hr IV .Q0M PRN; Protocol PRN Reason: Hypoglycemia Protocol Sodium Chloride (Sodium Chloride 0.45%) 1,000 mls @ 50 mls/hr IV .Q20H [facility] Insulin Human Regular (Novolin R) 0 unit SC ACHS [facility]; Protocol Last Admin: 03/21/19 21:56 Dose: Not Given Metolazone (Zaroxolyn) 5 mg PO DAILY [facility] Last Admin: 03/21/19 10:39 Dose: 5 mg Minoxidil (Minoxidil) 2.5 mg PO DAILY [facility] Last Admin: 03/21/19 12:26 Dose: 2.5 mg Multivitamins (Hexavitamin) 1 tab PO DAILY [facility] Last Admin: 03/21/19 10:38 Dose: 1 tab Nicotine (Nicoderm Cq) 1 patch TD DAILY [facility] Last Admin: 03/21/19 10:38 Dose: 1 patch Polyethylene Glycol (Miralax) 17 gm PO DAILY [facility] Last Admin: 03/21/19 10:39 Dose: 17 gm Sennosides (Senokot Tab) 8.6 mg PO DAILY [facility] Last Admin: 03/21/19 10:38 Dose: 8.6 mg Thiamine HCl (Vitamin B1 Tab) 100 mg PO DAILY [facility] Last Admin: 03/21/19 10:37 Dose: 100 mg Trazodone HCl (Desyrel) 100 mg PO HS [facility] Last Admin: 03/21/19 21:57 Dose: 100 mg - Labs Labs: 03/21/19 11:31 03/21/19 07:47 PT 12.2 SECONDS (9.7-12.2) 03/16/19 21:09 INR 1.1 03/16/19 21:09 APTT 38.0 SECONDS (21-34) H 03/16/19 21:09 - Constitutional Appears: Non-toxic, No Acute Distress - Eye Exam Eye Exam: Normal appearance - Respiratory Exam Respiratory Exam: Clear to Ausculation Bilateral. absent: Respiratory Distress - Cardiovascular Exam Cardiovascular Exam: RRR, +S1, +S2 - GI/Abdominal Exam GI & Abdominal Exam: Soft. absent: Distended - Extremities Exam Additional comments: marked b/l lower leg edema; - Neurological Exam Neurological Exam: Alert, Awake - Psychiatric Exam Psychiatric exam: Normal Mood. absent: Agitated - Skin Skin Exam: Warm. absent: Cyanosis Assessment and Plan (1) SUSANNAH (acute kidney injury) Assessment & Plan: Progressively worsening renal function in the setting of aggressive diuresis; still with signs/symptoms of volume overload; stable lytes; -Will pursue renal biopsy tomorrow mainly of prognostic diagnostic/purposes in a patient with significant proteinuria; -Will hold off on AVF placement until biopsy results available; -Avoid nephrotoxic agents; Status: Acute (2) Hypertensive chronic kidney disease Assessment & Plan: BP still uncontrolled; agree with primary team to add low dose minoxidil; continue rest of meds; Status: Acute (3) CHF (congestive heart failure) Assessment & Plan: Acute decompensated diastolic CHF; still markedly edematous; continue IV lasix 40 mg bid; metolazone dose increased to 5 mg daily; Status: Acute (4) Proteinuria Status: Chronic
[2019-03-22] MEDS ORDERED: Sodium Chloride 0.45% 1,000 ML IV SCH (00:01)
[2019-03-22 01:07] LABS: ANCA SCREEN NEGATIVE (NEGATIVE)
--- NOTE | 2019-03-22 06:59 | CP.PCM.PN ---
<Alivia Vo - Last Filed: 03/22/19 14:13> Subjective - Date & Time of Evaluation Date of Evaluation: 03/22/19 Time of Evaluation: 06:58 - Subjective Subjective: PGY-1 Alivia Vo D.O. Medicine progress note for Dr. Amor Tirado's service: Patient was seen and examined this morning. Patient says she feels okay. She is ready for a renal biopsy today. She says that she is having BMs. She is eating and sleeping well. Denies SOB. Still has mild b/l leg swelling. Objective - Vital Signs/Intake and Output Vital Signs (last 24 hours): Temp Pulse Resp BP Pulse Ox 98.8 F 73 20 131/63 96 03/21/19 23:20 03/22/19 01:00 03/21/19 23:20 03/21/19 23:20 03/21/19 23:20 Intake and Output: 03/21/19 03/22/19 18:59 06:59 Intake Total 430 Output Total 400 Balance 30 - Medications Medications: Current Medications Albuterol/Ipratropium (Duoneb 3 Mg/0.5 Mg (3 Ml) Ud) 3 ml INH RQ6 PRN PRN Reason: Shortness of Breath Amlodipine Besylate (Norvasc) 10 mg PO DAILY [facility] Last Admin: 03/21/19 10:37 Dose: 10 mg Carvedilol (Coreg) 25 mg PO BID [facility] Last Admin: 03/21/19 18:04 Dose: 25 mg Dextrose (Dextrose 50% Inj) 0 ml IV STAT PRN; Protocol PRN Reason: Hypoglycemia Protocol Dextrose (Glutose 15) 0 gm PO ONCE PRN; Protocol PRN Reason: Hypoglycemia Protocol Ergocalciferol (Drisdol 50,000 Intl Units Cap) 1 cap PO Q7D [facility] Stop: 06/05/19 09:31 Last Admin: 03/20/19 10:04 Dose: 1 cap Folic Acid (Folic Acid) 1 mg PO DAILY [facility] Last Admin: 03/21/19 10:38 Dose: 1 mg Furosemide (Lasix) 40 mg IVP Q12H [facility] Last Admin: 03/21/19 20:37 Dose: 40 mg Glucagon (Glucagen Diagnostic Kit) 0 mg IM STAT PRN; Protocol PRN Reason: Hypoglycemia Protocol Heparin Sodium (Porcine) (Heparin) 5,000 units SC Q8 [facility] Last Admin: 03/22/19 05:27 Dose: Not Given Hydralazine HCl (Apresoline) 50 mg PO TID [facility] Last Admin: 03/21/19 18:04 Dose: 50 mg Dextrose (Dextrose 5% In Water 1000 Ml) 1,000 mls @ 0 mls/hr IV .Q0M PRN; Protocol PRN Reason: Hypoglycemia Protocol Sodium Chloride (Sodium Chloride 0.45%) 1,000 mls @ 50 mls/hr IV .Q20H [facility] Last Admin: 03/22/19 00:19 Dose: 50 mls/hr Insulin Human Regular (Novolin R) 0 unit SC ACHS [facility]; Protocol Last Admin: 03/21/19 21:56 Dose: Not Given Metolazone (Zaroxolyn) 5 mg PO DAILY [facility] Last Admin: 03/21/19 10:39 Dose: 5 mg Minoxidil (Minoxidil) 2.5 mg PO DAILY [facility] Last Admin: 03/21/19 12:26 Dose: 2.5 mg Multivitamins (Hexavitamin) 1 tab PO DAILY [facility] Last Admin: 03/21/19 10:38 Dose: 1 tab Nicotine (Nicoderm Cq) 1 patch TD DAILY [facility] Last Admin: 03/21/19 10:38 Dose: 1 patch Polyethylene Glycol (Miralax) 17 gm PO DAILY [facility] Last Admin: 03/21/19 10:39 Dose: 17 gm Sennosides (Senokot Tab) 8.6 mg PO DAILY [facility] Last Admin: 03/21/19 10:38 Dose: 8.6 mg Thiamine HCl (Vitamin B1 Tab) 100 mg PO DAILY [facility] Last Admin: 03/21/19 10:37 Dose: 100 mg Trazodone HCl (Desyrel) 100 mg PO HS [facility] Last Admin: 03/21/19 21:57 Dose: 100 mg - Labs Labs: 03/21/19 11:31 03/21/19 07:47 PT 12.2 SECONDS (9.7-12.2) 03/16/19 21:09 INR 1.1 03/16/19 21:09 APTT 38.0 SECONDS (21-34) H 03/16/19 21:09 - Additional Findings Additional findings: - Constitutional Appears: Non-toxic, No Acute Distress - Head Exam Head Exam: ATRAUMATIC, NORMAL INSPECTION - Eye Exam Additional comments: R eye fixed laterally - ENT Exam ENT Exam: Mucous Membranes Moist - Respiratory Exam Respiratory Exam: Clear to Auscultation Bilateral, NORMAL BREATHING PATTERN - Cardiovascular Exam Cardiovascular Exam: RRR, +S1, +S2 - GI/Abdominal Exam GI & Abdominal Exam: Soft, Normal Bowel Sounds. absent: Distended, Guarding, Tenderness Additional comments: obese - Extremities Exam Extremities Exam: Pedal Edema (1+ b/l to mid-calves), Tenderness, shiny skin RUE midline - Back Exam Back Exam: NORMAL INSPECTION - Neurological Exam Neurological Exam: Alert, Awake, Normal Gait, Oriented x3 - Psychiatric Exam Psychiatric exam: Normal Affect, Normal Mood - Skin Skin Exam: Dry, Normal Color, Warm Assessment and Plan - Assessment and Plan (Free Text) Assessment: Patient is a 58 yo female with CKD, HTN, T2DM, and polysubstance use (heroin and cocaine) who presented with leg swelling and abdominal pain. Patient found to have worsening kidney disease and severe constipation. Echo notable for severe pulm HTN. Nephro recommends renal biopsy and plans for dialysis. Patient had vein mapping. Plan: Chronic kidney disease, worsening - BUN 28-->44, Cr 2.6-->3.3 - UA: 2+ prot, 1+ blood, 17 WBC, 7 RBC - 03/2018 random prot >8 gm - D-dimer 634 - BNP 31,300--> 12,300 - H&H wnl - Serum osm 311 - Complement (C3, C4) wnl - ANCA, proteinase 3, myeloperoxidase Ab negative - Vein mapping done on 03/20 - 24-hr urine collection x2- total volume 1950, 1025 (suspect inappropriately collected) - Protein high (3042, 1916) - Cr clearance low (10, 9) - Renal US: echogenic kidneys - Renal Bx on 03/22 - Metolazone 5 mg PO daily - Minoxidil 2.5 mg PO daily - [place] [place] biopsy (was recommended to patient previously), avoid ACEI/ARB, patient will most likely need to start dialysis - Vascular surgery consulted ([place])- vein mapping Acute decompensated diastolic congestive heart failure (HFpEF) - CXR: cardiomegaly, L pleural effusion - EKG: NSR, PVCs - LE Dopplers: no DVT - Echo: EF 62%, mod-severe LVH, severe pulm HTN, mod TR - CT A/P: Mild CHF suspected. [id number] left and mild right pleural effusions identified. - BNP 31,300--> 12,300 - Trop negative - Monitor on telemetry - Fluid restriction 1500 mL - Strict Is & Os - 03/21: -585 mL - Daily weights - Duoneb Q6H PRN - Lasix 40 mg IV Q12H - Coreg 25 mg PO BID - Cardiology consulted ([facility]) Hypertension, chronic, poorly controlled, improving - Echo: mod-severe concentric LVH - Vitals Q6H - Lasix 40 mg IV Q12H - Norvasc 10 mg PO daily - Hydralazine 50 mg PO Q8H - Coreg 25 mg PO BID Constipation, acute on chronic, improving - CT A/P: Prominent fecal loading is seen throughout the ascending through transverse large-bowel segments and is otherwise mild without gross mural thickening evident. - Senokot 8.6 mg PO daily - Miralax 17 g PO daily - Lactulose x1 on 03/19 - Mineral oil enema x1 on 03/19, x1 on 03/20 Hepatis steatosis, chronic - HIV and hepatitis negative - LFTs wnl - Albumin low - Abd US: mild hepatomegaly. Diffuse increased echogenicity in the liver may reflect hepatic steatosis. Nodular contour of the liver could represent cirrhosis. Medical renal disease. Gallbladder is contracted but no cholelithiasis. Mild diffuse dilation of the common bile duct without evidence for choledocholithiasis. - CT A/P: Hepatomegaly noted without focal mass or gross intrahepatic biliary duct dilatation. Mild anasarca. - Hepatobiliary surgeon consulted ([facility]) Vitamin D deficiency- suspect 2/2 kidney disease - 25-OH vit D <12.5 - Start Vitamin D 50,000 IU Q1WK on 03/20 (Friday) Polysubstance use disorder, chronic- heroin (intranasal), cocaine, tobacco, alcohol - UDS positive for cocaine and opiates - BAL <10 - HIV and hepatitis negative - CIWA (0) - Trazodone 100 mg PO QHS - Methadone taper - Nicoderm daily - Multivitamin daily - Thiamine 100 mg PO daily - Folate 1 mg PO daily - Psychiatry consulted ([facility]) H/o type 2 diabetes mellitus, chronic - A1c 6 - Accuchecks ACHS - Range 80-200 - Hypoglycemia protocol - ISS low Adrenal mass/hyperplasia, chronic - CT A/P: Benign right adrenal adenoma suspected. Left adrenal hyperplasia identified and may coexistent right adrenal gland. - 1 mg Dexamethasone suppression test- AM cortisol low (4.3) Ppx: VTE: SCDs contraindicated, Heparin 5000 units SC Q8H- HOLD due to renal Bx GI: Pepcid 20 mg PO daily Diet: Heart healthy, renal, 2g Na Code status: full code Dispo: Worsening renal function. Pending renal biopsy pathology. Likely hemodialysis. Case was discussed with attending, Dr. Amor Tirado. <Pardeep Tirado - Last Filed: 03/23/19 19:03> Objective - Vital Signs/Intake and Output Vital Signs (last 24 hours): Temp Pulse Resp BP Pulse Ox 98.8 F 70 20 125/68 97 03/23/19 15:45 03/23/19 15:45 03/23/19 15:45 03/23/19 17:55 03/23/19 15:45 - Medications Medications: Current Medications Acetaminophen (Tylenol 325mg Tab) 650 mg PO Q6 PRN PRN Reason: Pain, moderate (4-7) Albuterol/Ipratropium (Duoneb 3 Mg/0.5 Mg (3 Ml) Ud) 3 ml INH RQ6 PRN PRN Reason: Shortness of Breath Amlodipine Besylate (Norvasc) 10 mg PO DAILY [facility] Last Admin: 03/23/19 10:35 Dose: 10 mg Aspirin (Ecotrin) 81 mg PO DAILY [facility] Last Admin: 03/23/19 10:35 Dose: 81 mg Carvedilol (Coreg) 25 mg PO BID [facility] Last Admin: 03/23/19 17:55 Dose: 25 mg Dextrose (Dextrose 50% Inj) 0 ml IV STAT PRN; Protocol PRN Reason: Hypoglycemia Protocol Dextrose (Glutose 15) 0 gm PO ONCE PRN; Protocol PRN Reason: Hypoglycemia Protocol Docusate Sodium (Colace) 100 mg PO TID [facility] Last Admin: 03/23/19 17:54 Dose: 100 mg Ergocalciferol (Drisdol 50,000 Intl Units Cap) 1 cap PO Q7D [facility] Stop: 06/05/19 09:31 Last Admin: 03/20/19 10:04 Dose: 1 cap Folic Acid (Folic Acid) 1 mg PO DAILY [facility] Last Admin: 03/23/19 10:34 Dose: 1 mg Furosemide (Lasix) 40 mg IVP Q24H [facility] Last Admin: 03/23/19 08:46 Dose: Not Given Furosemide (Lasix) 40 mg IVP Q24H [facility] Glucagon (Glucagen Diagnostic Kit) 0 mg IM STAT PRN; Protocol PRN Reason: Hypoglycemia Protocol Heparin Sodium (Porcine) (Heparin) 5,000 units SC Q8 [facility] Last Admin: 03/23/19 15:26 Dose: Not Given Hydralazine HCl (Apresoline) 50 mg PO TID [facility] Last Admin: 03/23/19 17:54 Dose: Not Given Dextrose (Dextrose 5% In Water 1000 Ml) 1,000 mls @ 0 mls/hr IV .Q0M PRN; Protocol PRN Reason: Hypoglycemia Protocol Insulin Human Regular (Novolin R) 0 unit SC ACHS [facility]; Protocol Last Admin: 03/23/19 17:30 Dose: Not Given Metolazone (Zaroxolyn) 5 mg PO Q24H [facility] Last Admin: 03/23/19 08:32 Dose: 5 mg Multivitamins (Hexavitamin) 1 tab PO DAILY [facility] Last Admin: 03/23/19 10:34 Dose: 1 tab Nicotine (Nicoderm Cq) 1 patch TD DAILY [facility] Last Admin: 03/23/19 10:43 Dose: 1 patch Polyethylene Glycol (Miralax) 17 gm PO DAILY [facility] Last Admin: 03/23/19 10:39 Dose: Not Given Sennosides (Senokot Tab) 8.6 mg PO DAILY [facility] Last Admin: 03/23/19 10:35 Dose: 8.6 mg Thiamine HCl (Vitamin B1 Tab) 100 mg PO DAILY [facility] Last Admin: 03/23/19 10:35 Dose: 100 mg Trazodone HCl (Desyrel) 100 mg PO HS PRN PRN Reason: Insomnia - Labs Labs: 03/23/19 07:15 03/23/19 07:15 PT 12.1 SECONDS (9.7-12.2) 03/22/19 07:01 INR 1.1 03/22/19 07:01 APTT 34.0 SECONDS (21-34) 03/22/19 07:01 Attending/Attestation - Attestation I have personally seen and examined this patient.: Yes I have fully participated in the care of the patient.: Yes I have reviewed all pertinent clinical information, including history, physical exam and plan: Yes Notes (Text): 03/23/19 19:03 This is a late entry. Care of this patient was gone over with resident Dr. Cordova. Pardeep Tirado D.O.
[2019-03-22 07:32] LABS: BASO % 0.8 % (0.0-2.0); EOS # 0.3 K/uL (0.0-0.7); EOS % 4.9 % (0.0-4.0); HEMOGLOBIN 12.7 g/dL (11.0-16.0); LYMPH % 17.7 % (20.0-40.0); MEAN CELL VOLUME 94.3 fL (81.0-99.0); MEAN CORPUSCULAR HEMOGLOBIN 31.9 pg (27.0-31.0); MEAN CORPUSCULAR HGB CONC 33.9 g/dL (33.0-37.0); MEAN PLATELET VOLUME 11.2 fL (7.2-11.7); MONO # 0.6 K/uL (0.0-0.8); MONO % 10.3 % (0.0-10.0); NEUT # 3.6 K/uL (1.8-7.0); NEUT % 66.3 % (50.0-75.0); RBC 3.96 Mil/uL (3.80-5.20); RED CELL DISTRIBUTION WIDTH 15.3 % (11.5-14.5); WHITE BLOOD COUNT 5.4 K/uL (4.8-10.8)
[2019-03-22 07:35] LABS: INR 1.1; PROTHROMBIN TIME 12.1 SECONDS (9.7-12.2)
[2019-03-22 07:42] LABS: ALB/GLOB RATIO 1.3 (1.0-2.1); ALBUMIN 3.1 g/dL (3.5-5.0)
[2019-03-22] MEDS: (Novolin R) Insulin Human Regular 100 units/ml vial SC SCH ×4 (07:42→21:57)
[2019-03-22] MEDS ORDERED: Midazolam 2 MG/2 ML VIAL ONE ×2 (09:03→09:19)
[2019-03-22] MEDS ORDERED: Absorbable Gelatin Sponge Size 12-7 ONE (09:20)
--- NOTE | 2019-03-22 09:43 | PCM.SURG1 ---
Surgeon's Initial Post Op Note - Surgeon's Notes Surgeon: Mckinley Casarez MD External Auditor: NONE Type of Anesthesia: IV Sedation, Local Pre-Operative Diagnosis: REnal failure Operative Findings: US shows an unremarkable left kidney Post-Operative Diagnosis: Renal failure Operation Performed: US guided core biopsy left kidney. Biopsy tract embolized with gelfoam. Specimen/Specimens Removed: 18 g core x 3 Estimated Blood Loss: EBL {In ML}: 2 Blood Products Given: N/A Drains Used: No Drains Post-Op Condition: Fair Date of Surgery/Procedure: 03/22/19 Time of Surgery/Procedure: 09:40
--- NOTE | 2019-03-22 10:55 | CP.PCM.PN ---
Subjective - Date & Time of Evaluation Date of Evaluation: 03/22/19 Time of Evaluation: 09:15 - Subjective Subjective: Nephro Progress Note for Dr. Sarah Palacio DO, BHAVIN PGY-3 Patient seen and examined at bedside. Resting comfortably, but still complaining of bilateral LE edema, and BP remains uncontrolled. S/p renal biopsy today. Cr continues to worsening, may require HD this admission. AVF procedure deferred pending biopsy result. Objective - Vital Signs/Intake and Output Vital Signs (last 24 hours): Temp Pulse Resp BP Pulse Ox 99.0 F 69 18 170/67 H 97 03/22/19 07:00 03/22/19 07:30 03/22/19 07:00 03/22/19 07:00 03/22/19 07:00 - Medications Medications: Current Medications Albuterol/Ipratropium (Duoneb 3 Mg/0.5 Mg (3 Ml) Ud) 3 ml INH RQ6 PRN PRN Reason: Shortness of Breath Amlodipine Besylate (Norvasc) 10 mg PO DAILY [facility] Last Admin: 03/21/19 10:37 Dose: 10 mg Carvedilol (Coreg) 25 mg PO BID [facility] Last Admin: 03/21/19 18:04 Dose: 25 mg Dextrose (Dextrose 50% Inj) 0 ml IV STAT PRN; Protocol PRN Reason: Hypoglycemia Protocol Dextrose (Glutose 15) 0 gm PO ONCE PRN; Protocol PRN Reason: Hypoglycemia Protocol Ergocalciferol (Drisdol 50,000 Intl Units Cap) 1 cap PO Q7D [facility] Stop: 06/05/19 09:31 Last Admin: 03/20/19 10:04 Dose: 1 cap Folic Acid (Folic Acid) 1 mg PO DAILY [facility] Last Admin: 03/21/19 10:38 Dose: 1 mg Furosemide (Lasix) 40 mg IVP Q12H [facility] Last Admin: 03/21/19 20:37 Dose: 40 mg Glucagon (Glucagen Diagnostic Kit) 0 mg IM STAT PRN; Protocol PRN Reason: Hypoglycemia Protocol Heparin Sodium (Porcine) (Heparin) 5,000 units SC Q8 [facility] Last Admin: 03/22/19 05:27 Dose: Not Given Hydralazine HCl (Apresoline) 50 mg PO TID [facility] Last Admin: 03/21/19 18:04 Dose: 50 mg Dextrose (Dextrose 5% In Water 1000 Ml) 1,000 mls @ 0 mls/hr IV .Q0M PRN; Protocol PRN Reason: Hypoglycemia Protocol Insulin Human Regular (Novolin R) 0 unit SC ACHS [facility]; Protocol Last Admin: 03/22/19 07:42 Dose: Not Given Metolazone (Zaroxolyn) 5 mg PO DAILY [facility] Last Admin: 03/21/19 10:39 Dose: 5 mg Minoxidil (Minoxidil) 2.5 mg PO DAILY [facility] Last Admin: 03/21/19 12:26 Dose: 2.5 mg Multivitamins (Hexavitamin) 1 tab PO DAILY [facility] Last Admin: 03/21/19 10:38 Dose: 1 tab Nicotine (Nicoderm Cq) 1 patch TD DAILY [facility] Last Admin: 03/21/19 10:38 Dose: 1 patch Polyethylene Glycol (Miralax) 17 gm PO DAILY [facility] Last Admin: 03/21/19 10:39 Dose: 17 gm Sennosides (Senokot Tab) 8.6 mg PO DAILY [facility] Last Admin: 03/21/19 10:38 Dose: 8.6 mg Thiamine HCl (Vitamin B1 Tab) 100 mg PO DAILY [facility] Last Admin: 03/21/19 10:37 Dose: 100 mg Trazodone HCl (Desyrel) 100 mg PO HS [facility] Last Admin: 03/21/19 21:57 Dose: 100 mg - Labs Labs: 03/22/19 07:01 03/22/19 07:01 PT 12.1 SECONDS (9.7-12.2) 03/22/19 07:01 INR 1.1 03/22/19 07:01 APTT 34.0 SECONDS (21-34) 03/22/19 07:01 - Additional Findings Additional findings: - Constitutional Appears: Non-toxic, No Acute Distress - Head Exam Head Exam: ATRAUMATIC, NORMOCEPHALIC - Eye Exam Eye Exam: EOMI. absent: Conjunctival injection, Scleral icterus Pupil Exam: absent: Irregular, Unequal - ENT Exam ENT Exam: Mucous Membranes Moist - Neck Exam Neck exam: Negative for: Lymphadenopathy, Thyromegaly - Respiratory Exam Respiratory Exam: Clear to Auscultation Bilateral, Prolonged Expiratory Phase, NORMAL BREATHING PATTERN. absent: Accessory Muscle Use, Chest Wall Tenderness, Decreased Breath Sounds, Rales, Rhonchi, Wheezes - Cardiovascular Exam Cardiovascular Exam: REGULAR RHYTHM, RRR, +S1, +S2. absent: Bradycardia, Tachycardia, Irregular Rhythm, JVD, +S4 - GI/Abdominal Exam clear abdominal distension, less firm and less tender diffusely No spider angiomata or caput medusa appreciated distant-sounding bowel sounds heard sparsely - Extremities Exam Extremities exam: Positive for: full ROM, joint swelling, pedal edema (+2 pitting edema from feet to mid-thighs). Negative for: calf tenderness, tenderness, pedal pulses present (unable to palpate pulses through pedal edema) - Back Exam Back exam: absent: CVA tenderness (L), CVA tenderness (R) - Neurological Exam Awake and alert, moving all extremities spontaneously and on command - Psychiatric Exam Psychiatric exam: Normal Affect, Normal Mood - Skin Skin Exam: Intact, Normal Color, waxy skin tone at bilateral LE from ankles to mid-thighs Assessment and Plan - Assessment and Plan (Free Text) Assessment: This is a 58 yo F with PMH of HTN, DM2, CVA x2 (first in 2005, date of 2nd unknown), CKD, and frequent cocaine and heroin abuse (snort/smoking, denies ever injecting) who presented to [facility] with complaints of progressively swelling bilateral LE x2-3 months, progressively worsening shortness of breath (exertional and intermittently at rest), and worsening abdominal swelling and pain x2 months. Nephro was consulted due to SUSANNAH over CVD vs progressively worsening renal function. Pending renal biopsy today. Plan: 1) Bilateral LE and abdominal swelling, possible anasarca 2) Active tobacco, cocaine, and heroin abuse 3) HTN 4) DM2 5) Hx CVA x2 6) Worsening renal function SUSANNAH on CKD vs Progressive renal failure 7) Medication non-compliance -Cr 2.6 on admission, 3.3 today, 1.7-1.9 in 2018, 1.1-1.3 in 2017 Progressively worsening, unclear etiology; drug-induced (vasospasm from cocaine vs hypoperfusing 2/2 heroin use), cardiorenal, DM nephropathy A1c 6.0, last was 6.1, so DM well controlled, but can still have DM nephropathy despite well-controlled DM 24hr urine protein 3042, Cr clearance 10, from 2L urine; repeat protein 1916, Cr clearance 9, but only from 1025cc of urine, so unreliable Presentation strongly suggestive of CHF exacerbation, Echo 03/17 notable for EF 60% but moderate to severe LVH and severe Pulm HTN S/p renal biopsy today, pending path Continue Lasix for fluid removal as patient still making urine -BP remains difficult to control Current regimen: Amlodipine 10mg, Coreg 25mg BID, Hydralazine 50mg TID, Lasix 40mg IV q12, metalazone 5mg daily, minodidil 2.5mg daily Given current Cr and eGFR, would avoid CHARLINE/ARB until underlying etiology of renal dysfunction determined -Cardio consulted, appreciate their recs -urine electrolytes, complement, JEAN-PAUL, and ANCA ordered, f/u JEAN-PAUL and ANCA negative, complement wnl Urine electrolytes: Na 112, K 22.2, Cr 19.7, Urea 150 -Vein mapping US completed, Vasc surg consulted for evaluation for possible AVF Recommend defer AVF until results of bx return -Given CT abd/pelvis findings concerning for possible adrenal adenomas, workup for pheo, hyperaldo, and subclinical vandana's ordered Suppressed AM Cortisol after 1mg dexamethasone suppresion test Aldosterone lvl 10, pending renin lvl and ratio PTH, metanephrines still pending Patient reviewed and discussed with attending, Dr. Smith
[2019-03-22] MEDS: POLYETHYLENE GLYCOL 3350 17 GM/Dose PACKET PO SCH (11:08)
[2019-03-22] MEDS: Multiple Vitamins Tab PO SCH (11:09)
[2019-03-22] MEDS: metOLazone 5 MG TAB PO SCH (11:10)
--- NOTE | 2019-03-22 13:22 | US ---
PROCEDURE: Date of procedure: 03/22/2019 Procedure: Ultrasound-guided left renal biopsy, CPT 76265 Ultrasound guidance for biopsy, [id number] Medication: 8 cc 2% Lidocaine, patient received IV sedation by the anesthesiologist along with physiologic monitoring. HISTORY: Renal failure TECHNIQUE: Following informed consent and procedure time-out, the patient was placed prone on the interventional table and a limited ultrasound showed an unremarkable left kidney consistent with medical renal disease. There is no hydronephrosis or mass. The patient left back was prepped and draped in the usual sterile fashion. After patient sedated by the anesthesiologist and the skin anesthetized with lidocaine, an 18 gauge core needle was advanced percutaneously towards the lower pole cortex. Upon confirmation of needle position, three-18 gauge core specimens were obtained and sent for routine pathology. The biopsy tract was then embolized with Gelfoam. A post biopsy ultrasound showed no hematoma. There were no immediate complications. IMPRESSION: Ultrasound-guided left renal biopsy.
--- NOTE | 2019-03-22 13:59 | VASCLAB ---
Date of service: 03/20/2019 PROCEDURE: Upper Extremity Venous Mapping HISTORY: worsening renal function, likely pending HD PRIORS: None. TECHNIQUE: Bilateral upper extremity, internal jugular, subclavian, axillary, brachial, ulnar, radial, basilic and upper cephalic veins were evaluated. Flow was assessed with color Doppler, compressibility, assessment of phasic flow and augmentation response. Report prepared by Olivier Berman, RVT FINDINGS: RIGHT: 1. Subclavian Vein:Compressibility - Fully compressible: Thrombus - None : Flow - 2. Axillary Vein: Compressibility - Fully compressible: Thrombus - None 3. Brachial Vein: Compressibility - Fully compressible: Thrombus - None 4. Ulnar Vein:Compressibility - Fully compressible: Thrombus - None 5. Radial Vein:Compressibility - Fully compressible: Thrombus - None 6. Cephalic Vein: Compressibility - Fully compressible: thrombus - None 6.1. Upper Arm: Proximal Diameter: 0.28cm. Mid Diameter: 0.29cm. Distal Diameter: 0.30cm. 6.2. Forearm: Proximal Diameter: 0.24cm. Mid Diameter:0.27cm. Distal Diameter: 0.24cm 7. Basilic Vein:Compressibility - Fully compressible: thrombus - None 7.1. Upper Arm:Proximal Diameter: 0.44cm. Mid Diameter: 0.48cm. Distal Diameter: 0.37cm. 7.2. Forearm: Proximal Diameter: 0.19cm. Mid Diameter:0.16cm. Distal Diameter: 1.15cm. LEFT: 1. Subclavian Vein:Compressibility - Fully compressible: Thrombus - None : Flow - 2. Axillary Vein: Compressibility - Fully compressible: Thrombus - None 3. Brachial Vein: Compressibility - Fully compressible: Thrombus - None 4. Ulnar Vein:Compressibility - Fully compressible: Thrombus - None 5. Radial Vein:Compressibility - Fully compressible: Thrombus - None 6. Cephalic Vein: Compressibility - Fully compressible: thrombus - None 6.1. Upper Arm: Proximal Diameter: 0.25cm. Mid Diameter: 0.27cm. Distal Diameter: 0.23cm. 6.2. Forearm: Proximal Diameter: 0.24cm. Mid Diameter:0.24cm. Distal Diameter: 0.20cm 7. Basilic Vein:Compressibility - Fully compressible: thrombus - None 7.1. Upper Arm:Proximal Diameter: 0.38cm. Mid Diameter: 0.25cm. Distal Diameter: 0.27cm. 7.2. Forearm: Proximal Diameter: 0.23cm. Mid Diameter:0.18cm. Distal Diameter: 0.14cm. OTHER FINDINGS: Bilateral subclavian, axillary, brachial, ulnar, basilar and cephalic veins are compressible. IMPRESSION: Right: The subclavian, brachial, radial and ulnar artery revealed triphasic flow. The Brachial artery diameter was 0.41 cm and velocity 94.7 cm/s at the distal upper arm. The distal radial artery diameter was 0.20 cm and velocity 112.4 cm/s at the distal upper arm. The diameter measurements of the right cephalic vein is measured between 0.28 cm and 0.24 cm and basilic vein is measured between 0.48 cm and 0.15 cm. Left: The subclavian, brachial, radial and ulnar artery revealed triphasic flow. The Brachial artery diameter was 0.34 cm and velocity 122.4 cm/s at the distal upper arm. The distal radial artery diameter was 0.20 cm and velocity 77.1 cm/s at the distal upper arm. Diameter measurements of the left cephalic vein is measured between 0.27 cm and 0.20 cm and basilic vein is measured between 0.38cm and 0.14cm.
[2019-03-22 17:39] LABS: ALDO/PRA RATIO 25.6 Ratio (0.9-28.9)
--- NOTE | 2019-03-23 06:54 | CP.PCM.PN ---
<Alivia Vo - Last Filed: 03/23/19 17:40> Subjective - Date & Time of Evaluation Date of Evaluation: 03/23/19 Time of Evaluation: 06:52 - Subjective Subjective: PGY-1 Alivia Vo D.O. Medicine progress note for Dr. Amor Tirado's service: Patient was seen and examined this morning. She is complaining of leg pain. She says the swelling is resolved, but she feels sharp pain around her ankles. She is eager to go home but willing to attempt dialysis if necessary. She denies SOB. She says she still feels constipated but would rather try oral medications than enemas. Objective - Vital Signs/Intake and Output Vital Signs (last 24 hours): Temp Pulse Resp BP Pulse Ox 98.7 F 70 20 105/44 L 94 L 03/22/19 20:44 03/22/19 23:40 03/22/19 20:44 03/22/19 20:44 03/22/19 20:44 - Medications Medications: Current Medications Albuterol/Ipratropium (Duoneb 3 Mg/0.5 Mg (3 Ml) Ud) 3 ml INH RQ6 PRN PRN Reason: Shortness of Breath Amlodipine Besylate (Norvasc) 10 mg PO Q24H [facility] Last Admin: 03/22/19 20:45 Dose: Not Given Aspirin (Ecotrin) 81 mg PO DAILY [facility] Carvedilol (Coreg) 25 mg PO BID [facility] Last Admin: 03/22/19 17:57 Dose: 25 mg Dextrose (Dextrose 50% Inj) 0 ml IV STAT PRN; Protocol PRN Reason: Hypoglycemia Protocol Dextrose (Glutose 15) 0 gm PO ONCE PRN; Protocol PRN Reason: Hypoglycemia Protocol Ergocalciferol (Drisdol 50,000 Intl Units Cap) 1 cap PO Q7D [facility] Stop: 06/05/19 09:31 Last Admin: 03/20/19 10:04 Dose: 1 cap Folic Acid (Folic Acid) 1 mg PO DAILY [facility] Last Admin: 03/22/19 11:09 Dose: 1 mg Furosemide (Lasix) 40 mg IVP Q24H [facility] Furosemide (Lasix) 40 mg IVP Q24H [facility] Glucagon (Glucagen Diagnostic Kit) 0 mg IM STAT PRN; Protocol PRN Reason: Hypoglycemia Protocol Heparin Sodium (Porcine) (Heparin) 5,000 units SC Q8 [facility] Last Admin: 03/23/19 06:47 Dose: Not Given Hydralazine HCl (Apresoline) 50 mg PO TID [facility] Last Admin: 03/22/19 17:58 Dose: 50 mg Dextrose (Dextrose 5% In Water 1000 Ml) 1,000 mls @ 0 mls/hr IV .Q0M PRN; Protocol PRN Reason: Hypoglycemia Protocol Insulin Human Regular (Novolin R) 0 unit SC ACHS [facility]; Protocol Last Admin: 03/22/19 21:57 Dose: Not Given Metolazone (Zaroxolyn) 5 mg PO Q24H [facility] Minoxidil (Minoxidil) 2.5 mg PO Q24H [facility] Multivitamins (Hexavitamin) 1 tab PO DAILY [facility] Last Admin: 03/22/19 11:09 Dose: 1 tab Nicotine (Nicoderm Cq) 1 patch TD DAILY [facility] Last Admin: 03/22/19 11:10 Dose: 1 patch Polyethylene Glycol (Miralax) 17 gm PO DAILY [facility] Last Admin: 03/22/19 11:08 Dose: 17 gm Sennosides (Senokot Tab) 8.6 mg PO DAILY [facility] Last Admin: 03/22/19 11:09 Dose: 8.6 mg Thiamine HCl (Vitamin B1 Tab) 100 mg PO DAILY [facility] Last Admin: 03/22/19 11:09 Dose: 100 mg Trazodone HCl (Desyrel) 100 mg PO HS [facility] Last Admin: 03/22/19 21:57 Dose: Not Given - Labs Labs: 03/22/19 07:01 03/22/19 07:01 PT 12.1 SECONDS (9.7-12.2) 03/22/19 07:01 INR 1.1 03/22/19 07:01 APTT 34.0 SECONDS (21-34) 03/22/19 07:01 - Constitutional Appears: Non-toxic, No Acute Distress - Head Exam Head Exam: ATRAUMATIC, NORMAL INSPECTION - Eye Exam Additional comments: R eye fixed laterally - ENT Exam ENT Exam: Mucous Membranes Moist - Neck Exam Neck Exam: Normal Inspection - Respiratory Exam Respiratory Exam: Clear to Ausculation Bilateral, NORMAL BREATHING PATTERN. absent: Respiratory Distress - Cardiovascular Exam Cardiovascular Exam: RRR, +S1, +S2 - GI/Abdominal Exam GI & Abdominal Exam: Soft. absent: Distended, Tenderness - Extremities Exam Extremities Exam: Normal Inspection, Tenderness. absent: Pedal Edema Additional comments: RUE midline - Neurological Exam Neurological Exam: Alert, Awake, Normal Gait, Oriented x3 - Psychiatric Exam Psychiatric exam: Normal Affect, Normal Mood - Skin Skin Exam: Dry, Normal Color, Warm Assessment and Plan - Assessment and Plan (Free Text) Assessment: Patient is a 58 yo female with CKD, HTN, T2DM, and polysubstance use (heroin and cocaine) who presented with leg swelling and abdominal pain. Patient found to have worsening kidney disease and severe constipation. Echo notable for severe pulm HTN. Patient had L renal biopsy on 03/22. Nephro plans for dialysis. Patient had vein mapping. Plan: Chronic kidney disease, worsening - BUN 28-->44, Cr 2.6-->3.3 - UA: 2+ prot, 1+ blood, 17 WBC, 7 RBC - 03/2018 random prot >8 gm - D-dimer 634 - BNP 31,300--> 12,300 - PTH 335 - H&H wnl - Serum osm 311 - Complement (C3, C4) wnl - ANCA, proteinase 3, myeloperoxidase Ab negative - Renin, aldosterone, ratio wnl - Vein mapping done on 03/20 - 24-hr urine collection x2- total volume 1950, 1025 (suspect inappropriately collected) - Protein high (3042, 1916) - Cr clearance low (10, 9) - Renal US: echogenic kidneys - L renal Bx on 03/22- pathology pending - Metolazone 5 mg PO daily - Discontinue Minoxidil 2.5 mg PO daily (8am) as per nephro - [place] [place]I/ARB, patient will most likely need to start dialysis - Vascular surgery consulted (Murtaugh)- vein mapping Hypertension, chronic, poorly controlled- SBP goal 130-140 - Echo: mod-severe concentric LVH - Vitals Q6H - Lasix 40 mg IV BID (8am, 2pm) - Norvasc 10 mg PO daily (8am) - Hydralazine 50 mg PO Q8H (8am, 2pm, 8pm)- hold if SBP <140 - Coreg 25 mg PO BID (10am, 6pm) - Metolazone 5 mg PO daily (8am) - Discontinue Minoxidil 2.5 mg PO daily (8am) as per nephro - Patient had an episode of unilateral facial tingling this afternoon while using the bathroom. Near this time, patient's SBP was 105. Suspect vasovagal, but discussed with nephrology optimal BP control. Goal SBP 130-140. Acute decompensated diastolic congestive heart failure (HFpEF) - CXR: cardiomegaly, L pleural effusion - EKG: NSR, PVCs - LE Dopplers: no DVT - Echo: EF 62%, mod-severe LVH, severe pulm HTN, mod TR - CT A/P: Mild CHF suspected. [id number] left and mild right pleural effusions identified. - BNP 31,300--> 12,300 - Trop negative - Monitor on telemetry - Fluid restriction 1500 mL - Strict Is & Os - 03/21: -585 mL - Daily weights - Duoneb Q6H PRN - Lasix 40 mg IV Q12H - Coreg 25 mg PO BID - Cardiology consulted (Randa) Constipation, acute on chronic - CT A/P: Prominent fecal loading is seen throughout the ascending through transverse large-bowel segments and is otherwise mild without gross mural thickening evident. - Senokot 8.6 mg PO daily - Miralax 17 g PO daily - Start Colace 100 mg PO TID - Lactulose x1 on 03/19, x1 on 03/22 - Mineral oil enema x1 on 03/19, x1 on 03/20 Hepatis steatosis, chronic - HIV and hepatitis negative - LFTs wnl - Albumin low - Abd US: mild hepatomegaly. Diffuse increased echogenicity in the liver may reflect hepatic steatosis. Nodular contour of the liver could represent cirrhosis. Medical renal disease. Gallbladder is contracted but no cholelithiasis. Mild diffuse dilation of the common bile duct without evidence for choledocholithiasis. - CT A/P: Hepatomegaly noted without focal mass or gross intrahepatic biliary duct dilatation. Mild anasarca. - Hepatobiliary surgeon consulted (Wilson) Vitamin D deficiency- suspect 2/2 kidney disease - 25-OH vit D <12.5 - Vitamin D 50,000 IU Q1WK on 03/20 (Friday) Polysubstance use disorder, chronic- heroin (intranasal), cocaine, tobacco, alcohol - UDS positive for cocaine and opiates - BAL <10 - HIV and hepatitis negative - CIWA (0) - Trazodone 100 mg PO QHS PRN - Completed Methadone taper - Nicoderm daily - Multivitamin daily - Thiamine 100 mg PO daily - Folate 1 mg PO daily - Psychiatry consulted (Meli) H/o type 2 diabetes mellitus, chronic - A1c 6 - Accuchecks ACHS - Range 80-200 - Hypoglycemia protocol - ISS low - ASA 81 mg PO daily - Podiatry consulted (Ibrahima)- diabetic foot exam and nail care Adrenal mass/hyperplasia, chronic - CT A/P: Benign right adrenal adenoma suspected. Left adrenal hyperplasia identified and may coexistent right adrenal gland. - 1 mg Dexamethasone suppression test- AM cortisol low (4.3) - Plasma metaneprhine wnl - Plasma normetanephrine elev (377) Ppx: VTE: SCDs contraindicated, Heparin 5000 units SC Q8H GI: Pepcid 20 mg PO daily Diet: Heart healthy, renal, 2g Na Code status: full code Dispo: Worsening renal function. Pending renal biopsy pathology. Likely hemodialysis this week. Case was discussed with attending, Dr. Amor Tirado. <Pardeep Tirado - Last Filed: 03/26/19 19:00> Objective - Vital Signs/Intake and Output Vital Signs (last 24 hours): Temp Pulse Resp BP Pulse Ox 97 F L 121 H 18 151/89 H 96 03/26/19 15:02 03/26/19 16:00 03/26/19 15:02 03/26/19 17:46 03/26/19 15:02 Intake and Output: 03/26/19 03/27/19 18:59 06:59 Intake Total 300 Balance 300 - Medications Medications: Current Medications Acetaminophen (Tylenol 325mg Tab) 650 mg PO Q6 PRN PRN Reason: Pain, moderate (4-7) Last Admin: 03/26/19 09:50 Dose: 325 mg Albuterol/Ipratropium (Duoneb 3 Mg/0.5 Mg (3 Ml) Ud) 3 ml INH RQ6 PRN PRN Reason: Shortness of Breath Amlodipine Besylate (Norvasc) 10 mg PO Q24H [facility] Last Admin: 03/26/19 08:10 Dose: 10 mg Apixaban (Eliquis) 5 mg PO BID [facility] Aspirin (Ecotrin) 81 mg PO DAILY [facility] Last Admin: 03/26/19 10:19 Dose: 81 mg Carvedilol (Coreg) 12.5 mg PO BID [facility] Last Admin: 03/26/19 17:46 Dose: 12.5 mg Dextrose (Dextrose 50% Inj) 0 ml IV STAT PRN; Protocol PRN Reason: Hypoglycemia Protocol Dextrose (Glutose 15) 0 gm PO ONCE PRN; Protocol PRN Reason: Hypoglycemia Protocol Docusate Sodium (Colace) 100 mg PO TID [facility] Last Admin: 03/26/19 17:49 Dose: 100 mg Ergocalciferol (Drisdol 50,000 Intl Units Cap) 1 cap PO Q7D [facility] Stop: 05/05/19 12:01 Last Admin: 03/24/19 15:19 Dose: 1 cap Folic Acid (Folic Acid) 1 mg PO DAILY [facility] Last Admin: 03/26/19 10:19 Dose: 1 mg Furosemide (Lasix) 40 mg PO Q24H [facility] Last Admin: 03/26/19 08:09 Dose: 40 mg Gabapentin (Neurontin) 100 mg PO DAILY [facility] Last Admin: 03/26/19 10:19 Dose: 100 mg Glucagon (Glucagen Diagnostic Kit) 0 mg IM STAT PRN; Protocol PRN Reason: Hypoglycemia Protocol Hydralazine HCl (Apresoline) 25 mg PO TID [facility] Last Admin: 03/26/19 17:48 Dose: 25 mg Dextrose (Dextrose 5% In Water 1000 Ml) 1,000 mls @ 0 mls/hr IV .Q0M PRN; Protocol PRN Reason: Hypoglycemia Protocol Insulin Human Regular (Novolin R) 0 unit SC [facility]; Protocol Last Admin: 03/26/19 17:30 Dose: Not Given Losartan Potassium (Cozaar) 25 mg PO DAILY [facility] Metolazone (Zaroxolyn) 5 mg PO QAM [facility] Last Admin: 03/26/19 10:19 Dose: 5 mg Multivitamins (Hexavitamin) 1 tab PO DAILY [facility] Last Admin: 03/26/19 10:19 Dose: 1 tab Nicotine (Nicoderm Cq) 1 patch TD DAILY [facility] Stop: 04/28/19 23:59 Last Admin: 03/26/19 10:18 Dose: 1 patch Polyethylene Glycol (Miralax) 17 gm PO DAILY [facility] Last Admin: 03/25/19 10:00 Dose: Not Given Thiamine HCl (Vitamin B1 Tab) 100 mg PO DAILY [facility] Last Admin: 03/26/19 10:20 Dose: 100 mg Trazodone HCl (Desyrel) 100 mg PO HS PRN PRN Reason: Insomnia Last Admin: 03/25/19 22:45 Dose: 100 mg - Labs Labs: 03/25/19 07:55 03/25/19 11:36 PT 12.3 SECONDS (9.7-12.2) H 03/25/19 07:55 INR 1.1 03/25/19 07:55 APTT 38.0 SECONDS (21-34) H 03/25/19 07:55 Attending/Attestation - Attestation I have personally seen and examined this patient.: Yes I have fully participated in the care of the patient.: Yes I have reviewed all pertinent clinical information, including history, physical exam and plan: Yes Notes (Text): 03/26/19 19:00 This is a late entry. Patient was seen and examined with resident Dr. Vo. Care of this patient was gone over in detail with resident Dr. Vo. Pardeep Tirado D.O.
[2019-03-23 07:28] LABS: BASO # 0.1 K/uL (0.0-0.2); BASO % 0.8 % (0.0-2.0); EOS # 0.2 K/uL (0.0-0.7); EOS % 3.2 % (0.0-4.0); HEMOGLOBIN 14.2 g/dL (11.0-16.0); LYMPH # 0.9 K/uL (1.0-4.3); LYMPH % 12.7 % (20.0-40.0); MEAN CELL VOLUME 93.7 fL (81.0-99.0); MEAN CORPUSCULAR HEMOGLOBIN 31.4 pg (27.0-31.0); MEAN CORPUSCULAR HGB CONC 33.5 g/dL (33.0-37.0); MEAN PLATELET VOLUME 10.5 fL (7.2-11.7); MONO # 0.6 K/uL (0.0-0.8); MONO % 8.2 % (0.0-10.0); NEUT # 5.3 K/uL (1.8-7.0); NEUT % 75.1 % (50.0-75.0); NRBC % 0.1 % (0.0-2.0); RBC 4.51 Mil/uL (3.80-5.20); RED CELL DISTRIBUTION WIDTH 15.3 % (11.5-14.5); WHITE BLOOD COUNT 7.1 K/uL (4.8-10.8)
[2019-03-23] MEDS: (Novolin R) Insulin Human Regular 100 units/ml vial SC SCH ×4 (07:50→22:40)
[2019-03-23 08:06] LABS: ALB/GLOB RATIO 1.3 (1.0-2.1); ALBUMIN 3.7 g/dL (3.5-5.0); CALCIUM 9.4 mg/dl (8.6-10.4)
[2019-03-23] MEDS: metOLazone 5 MG TAB PO SCH (08:32)
--- NOTE | 2019-03-23 09:06 | CP.PCM.PN ---
<Robin Palacio - Last Filed: 03/23/19 14:58> Subjective - Date & Time of Evaluation Date of Evaluation: 03/23/19 Time of Evaluation: 09:30 - Subjective Subjective: Nephro Progress Note for Dr. Smith Service Robin Palacio DO, IM PGY-3 Patient seen and examined at bedside. Initially, was resting comfortably, but later complained of sensation of left facial numbness briefly. Was noted to have a decrease in BP down to 105/44. Has since resolved. Discussed concern with patient that last two 24-hour collections have been insu fficient, likely due to missed collection. Patient reported that she missed urine collections due to travis to bathroom (urgency) and/or forgetfulness. Offered option of placing jean-baptiste for 24hr collection, but patient refused. Objective - Vital Signs/Intake and Output Vital Signs (last 24 hours): Temp Pulse Resp BP Pulse Ox 98.8 F 58 L 20 122/78 97 03/23/19 07:42 03/23/19 07:42 03/23/19 07:42 03/23/19 08:46 03/23/19 07:42 - Medications Medications: Current Medications Albuterol/Ipratropium (Duoneb 3 Mg/0.5 Mg (3 Ml) Ud) 3 ml INH RQ6 PRN PRN Reason: Shortness of Breath Amlodipine Besylate (Norvasc) 10 mg PO DAILY [facility] Aspirin (Ecotrin) 81 mg PO DAILY [facility] Carvedilol (Coreg) 25 mg PO BID [facility] Last Admin: 03/22/19 17:57 Dose: 25 mg Dextrose (Dextrose 50% Inj) 0 ml IV STAT PRN; Protocol PRN Reason: Hypoglycemia Protocol Dextrose (Glutose 15) 0 gm PO ONCE PRN; Protocol PRN Reason: Hypoglycemia Protocol Ergocalciferol (Drisdol 50,000 Intl Units Cap) 1 cap PO Q7D [facility] Stop: 06/05/19 09:31 Last Admin: 03/20/19 10:04 Dose: 1 cap Folic Acid (Folic Acid) 1 mg PO DAILY [facility] Last Admin: 03/22/19 11:09 Dose: 1 mg Furosemide (Lasix) 40 mg IVP Q24H [facility] Last Admin: 03/23/19 08:46 Dose: Not Given Furosemide (Lasix) 40 mg IVP Q24H [facility] Glucagon (Glucagen Diagnostic Kit) 0 mg IM STAT PRN; Protocol PRN Reason: Hypoglycemia Protocol Heparin Sodium (Porcine) (Heparin) 5,000 units SC Q8 [facility] Last Admin: 03/23/19 06:47 Dose: Not Given Hydralazine HCl (Apresoline) 50 mg PO TID [facility] Last Admin: 03/22/19 17:58 Dose: 50 mg Dextrose (Dextrose 5% In Water 1000 Ml) 1,000 mls @ 0 mls/hr IV .Q0M PRN; Protocol PRN Reason: Hypoglycemia Protocol Insulin Human Regular (Novolin R) 0 unit SC ACHS [facility]; Protocol Last Admin: 03/23/19 07:50 Dose: Not Given Metolazone (Zaroxolyn) 5 mg PO Q24H [facility] Last Admin: 03/23/19 08:32 Dose: 5 mg Minoxidil (Minoxidil) 2.5 mg PO Q24H [facility] Last Admin: 03/23/19 08:32 Dose: 2.5 mg Multivitamins (Hexavitamin) 1 tab PO DAILY [facility] Last Admin: 03/22/19 11:09 Dose: 1 tab Nicotine (Nicoderm Cq) 1 patch TD DAILY [facility] Last Admin: 03/22/19 11:10 Dose: 1 patch Polyethylene Glycol (Miralax) 17 gm PO DAILY [facility] Last Admin: 03/22/19 11:08 Dose: 17 gm Sennosides (Senokot Tab) 8.6 mg PO DAILY [facility] Last Admin: 03/22/19 11:09 Dose: 8.6 mg Thiamine HCl (Vitamin B1 Tab) 100 mg PO DAILY [facility] Last Admin: 03/22/19 11:09 Dose: 100 mg Trazodone HCl (Desyrel) 100 mg PO HS [facility] Last Admin: 03/22/19 21:57 Dose: Not Given - Labs Labs: 03/23/19 07:15 03/23/19 07:15 PT 12.1 SECONDS (9.7-12.2) 03/22/19 07:01 INR 1.1 03/22/19 07:01 APTT 34.0 SECONDS (21-34) 03/22/19 07:01 - Additional Findings Additional findings: - Constitutional Appears: Non-toxic, No Acute Distress - Head Exam Head Exam: ATRAUMATIC, NORMOCEPHALIC - Eye Exam Eye Exam: EOMI. absent: Conjunctival injection, Scleral icterus Pupil Exam: absent: Irregular, Unequal - ENT Exam ENT Exam: Mucous Membranes Moist - Neck Exam Neck exam: Negative for: Lymphadenopathy, Thyromegaly - Respiratory Exam Respiratory Exam: Clear to Auscultation Bilateral, Prolonged Expiratory Phase, NORMAL BREATHING PATTERN. absent: Accessory Muscle Use, Chest Wall Tenderness, Decreased Breath Sounds, Rales, Rhonchi, Wheezes - Cardiovascular Exam Cardiovascular Exam: REGULAR RHYTHM, RRR, +S1, +S2. absent: Bradycardia, Tachycardia, Irregular Rhythm, JVD, +S4 - GI/Abdominal Exam clear abdominal distension, less firm and less tender diffusely No spider angiomata or caput medusa appreciated distant-sounding bowel sounds heard sparsely - Extremities Exam Extremities exam: Positive for: full ROM, joint swelling, significantly reduced pedal edema (down to trace in bilateral ankles to shins). Negative for: calf tenderness, tenderness, pedal pulses present (unable to palpate pulses through pedal edema) - Back Exam Back exam: absent: CVA tenderness (L), CVA tenderness (R) - Neurological Exam Awake and alert, moving all extremities spontaneously and on command - Psychiatric Exam Psychiatric exam: Normal Affect, Normal Mood - Skin Skin Exam: Intact, Normal Color, waxy skin tone at bilateral LE from ankles to mid-thighs Assessment and Plan - Assessment and Plan (Free Text) Assessment: This is a 58 yo F with PMH of HTN, DM2, CVA x2 (first in 2005, date of 2nd unknown), CKD, and frequent cocaine and heroin abuse (snort/smoking, denies ever injecting) who presented to [facility] with complaints of progressively swelling bilateral LE x2-3 months, progressively worsening shortness of breath (exertional and intermittently at rest), and worsening abdominal swelling and pain x2 months. Nephro was consulted due to USSANNAH over CVD vs progressively worsening renal function. S/p renal biopsy, pending path. Plan: 1) Bilateral LE and abdominal swelling, possible anasarca 2) Active tobacco, cocaine, and heroin abuse 3) HTN 4) DM2 5) Hx CVA x2 6) Worsening renal function SUSANNAH on CKD vs Progressive renal failure 7) Medication non-compliance 8) Left-sided facial numbness -Cr 2.6 on admission, remains 3.3, 1.7-1.9 in 2018, 1.1-1.3 in 2017 Progressively worsening, unclear etiology; drug-induced (vasospasm from cocaine vs hypoperfusing 2/2 heroin use), cardiorenal, DM nephropathy A1c 6.0, last was 6.1, so DM well controlled, but can still have DM nephropathy despite well-controlled DM Pending another 24hr creatinine clearance and protein collection Presentation strongly suggestive of CHF exacerbation, Echo 03/17 notable for EF 60% but moderate to severe LVH and severe Pulm HTN S/p renal biopsy, pending path LE edema greatly improved -BP control Episode of transient L facial numbness with acutely lowered BP concerning for possible TIA Current regimen: Amlodipine 10mg, Coreg 25mg BID, Hydralazine 50mg TID, Lasix 40mg IV BID, metalazone 5mg daily, minodidil 2.5mg daily Recommend holding PM lasix dose, if SBP < 140 would hold evening dose of hydralazine, and recommend discontinuing Minoxidil Goal SBP 130's-140's Given current Cr and eGFR, would avoid CHARLINE/ARB until underlying etiology of renal dysfunction determined -Cardio consulted, appreciate their recs -urine electrolytes, complement, JEAN-PAUL, and ANCA ordered, f/u JEAN-PAUL and ANCA negative, complement wnl Urine electrolytes: Na 112, K 22.2, Cr 19.7, Urea 150 -Vein mapping US completed, Vasc surg consulted for evaluation for possible AVF Recommend defer AVF until results of bx return -Given CT abd/pelvis findings concerning for possible adrenal adenomas, workup for pheo, hyperaldo, and subclinical vandana's ordered Suppressed AM Cortisol after 1mg dexamethasone suppresion test Aldosterone, renin, and yady:renin ratio wnl PTH elevated, likely secondary to progressive CKD Metanephrines elevated, but not sufficiently elevated to be strongly indicative of pheo Patient reviewed and discussed with attending, Dr. Smith <Arvin Smith - Last Filed: 03/24/19 08:28> Objective - Vital Signs/Intake and Output Vital Signs (last 24 hours): Temp Pulse Resp BP Pulse Ox 98.3 F 64 20 106/58 L 97 03/23/19 23:20 03/24/19 01:46 03/23/19 23:20 03/23/19 23:20 03/23/19 15:45 Intake and Output: 03/24/19 03/24/19 06:59 18:59 Intake Total 250 Balance 250 - Medications Medications: Current Medications Acetaminophen (Tylenol 325mg Tab) 650 mg PO Q6 PRN PRN Reason: Pain, moderate (4-7) Last Admin: 03/24/19 03:14 Dose: 650 mg Albuterol/Ipratropium (Duoneb 3 Mg/0.5 Mg (3 Ml) Ud) 3 ml INH RQ6 PRN PRN Reason: Shortness of Breath Amlodipine Besylate (Norvasc) 10 mg PO DAILY [facility] Last Admin: 03/23/19 10:35 Dose: 10 mg Aspirin (Ecotrin) 81 mg PO DAILY [facility] Last Admin: 03/23/19 10:35 Dose: 81 mg Carvedilol (Coreg) 25 mg PO BID [facility] Last Admin: 03/23/19 17:55 Dose: 25 mg Dextrose (Dextrose 50% Inj) 0 ml IV STAT PRN; Protocol PRN Reason: Hypoglycemia Protocol Dextrose (Glutose 15) 0 gm PO ONCE PRN; Protocol PRN Reason: Hypoglycemia Protocol Docusate Sodium (Colace) 100 mg PO TID [facility] Last Admin: 03/23/19 17:54 Dose: 100 mg Ergocalciferol (Drisdol 50,000 Intl Units Cap) 1 cap PO Q7D [facility] Stop: 06/05/19 09:31 Last Admin: 03/20/19 10:04 Dose: 1 cap Folic Acid (Folic Acid) 1 mg PO DAILY [facility] Last Admin: 03/23/19 10:34 Dose: 1 mg Furosemide (Lasix) 40 mg IVP Q24H [facility] Last Admin: 03/23/19 08:46 Dose: Not Given Furosemide (Lasix) 40 mg IVP Q24H [facility] Glucagon (Glucagen Diagnostic Kit) 0 mg IM STAT PRN; Protocol PRN Reason: Hypoglycemia Protocol Heparin Sodium (Porcine) (Heparin) 5,000 units SC Q8 [facility] Last Admin: 03/23/19 22:44 Dose: Not Given Hydralazine HCl (Apresoline) 50 mg PO TID [facility] Last Admin: 03/23/19 17:54 Dose: Not Given Dextrose (Dextrose 5% In Water 1000 Ml) 1,000 mls @ 0 mls/hr IV .Q0M PRN; Protocol PRN Reason: Hypoglycemia Protocol Insulin Human Regular (Novolin R) 0 unit SC ACHS [facility]; Protocol Last Admin: 03/23/19 22:40 Dose: Not Given Metolazone (Zaroxolyn) 5 mg PO Q24H [facility] Last Admin: 03/23/19 08:32 Dose: 5 mg Multivitamins (Hexavitamin) 1 tab PO DAILY [facility] Last Admin: 03/23/19 10:34 Dose: 1 tab Nicotine (Nicoderm Cq) 1 patch TD DAILY [facility] Last Admin: 03/23/19 10:43 Dose: 1 patch Polyethylene Glycol (Miralax) 17 gm PO DAILY [facility] Last Admin: 03/23/19 10:39 Dose: Not Given Sennosides (Senokot Tab) 8.6 mg PO DAILY [facility] Last Admin: 03/23/19 10:35 Dose: 8.6 mg Thiamine HCl (Vitamin B1 Tab) 100 mg PO DAILY [facility] Last Admin: 03/23/19 10:35 Dose: 100 mg Trazodone HCl (Desyrel) 100 mg PO HS PRN PRN Reason: Insomnia Last Admin: 03/23/19 22:43 Dose: 100 mg - Labs Labs: 03/23/19 07:15 03/23/19 07:15 PT 12.1 SECONDS (9.7-12.2) 03/22/19 07:01 INR 1.1 03/22/19 07:01 APTT 34.0 SECONDS (21-34) 03/22/19 07:01 Assessment and Plan (1) SUSANNAH (acute kidney injury) Status: Acute (2) Hypertensive chronic kidney disease Status: Acute (3) CHF (congestive heart failure) Status: Acute (4) Proteinuria Status: Chronic Attending/Attestation - Attestation I have personally seen and examined this patient.: Yes I have fully participated in the care of the patient.: Yes I have reviewed all pertinent clinical information, including history, physical exam and plan: Yes Notes (Text): Patient seen and examined; I agree with the resident's note as above with the following additions/edits: Patient admitted with uncontrolled htn, acute decompensated diastolic CHF and worsening renal failure; borderline hypotensive readings seen today; patient also complained of transient unilateral facial numbness; will hold diuretics tonight; likely need to stop minoxidil; will aim for SBP ~140; Serum creatinine at relative plateau; stable electrolyte status; has been getting aggressive diuresis with IV lasix and metolazone; question is whether HD needs to be initiated on this admission; based on eGFR (17 ml/min today), we should be able to hold off on HD until patient can have AVF placement/maturation; however, CrCl was very low although the two previous 24 hr urine collections done on this admission for CrCl were likely incomplete collec tions; patient was offered to have jean-baptiste placed for 24 hrs for accurate urine collection but she refuses; will attempt another 24 hr collection for CrCl; s/p renal biopsy yesterday; we are awaiting the result before deciding on AVF placement (in case there is a correctable cause of renal failure).
[2019-03-23] MEDS: Multiple Vitamins Tab PO SCH (10:34)
[2019-03-23] MEDS: POLYETHYLENE GLYCOL 3350 17 GM/Dose PACKET PO SCH ×2 (10:36→10:39)
--- NOTE | 2019-03-23 10:58 | CP.PCM.CON ---
History of Present Illness - History of Present Illness History of Present Illness: Podiatry Consult Note - Dr. Alexandra 58 year old DM female seen and evaluated at bedside for painful, elongated nails and painful calluses. Patient states they cause discomfort with ambulation and while wearing shoes. Patient states she has seen Dr. Carson on an outpatient basis for routine diabetic care. Patient requesting her nails and calluses trimmed for pain relief. Offers no other lower extremity complaints. Denies n/v/f/d/c/sob/dasilva/cp. Review of Systems - Review of Systems All systems: reviewed and no additional remarkable complaints except (as per HPI) Past Patient History - Infectious Disease Hx of Infectious Diseases: None - Past Medical History & Family History Past Medical History?: Yes - Past Social History Smoking Status: Light Smoker < 10 Cigarettes Daily - CARDIAC Hx Hypertension: Yes - PULMONARY Hx Tuberculosis: No - NEUROLOGICAL Hx Seizures: No - ENDOCRINE/METABOLIC Hx Diabetes Mellitus Type 2: Yes - HEMATOLOGICAL/ONCOLOGICAL Hx Human Immunodeficiency Virus (HIV): No - MUSCULOSKELETAL/RHEUMATOLOGICAL Hx Falls: No - GENITOURINARY/GYNECOLOGICAL Hx Sexually Transmitted Disorders: No - PSYCHIATRIC Hx Substance Use: Yes - SURGICAL HISTORY Hx Surgeries: No - ANESTHESIA Hx Anesthesia: No Meds Allergies/Adverse Reactions: Allergies Allergy/AdvReac Type Severity Reaction Status Date / Time No Known Allergies Allergy Verified 03/16/19 19:58 - Medications Medications: Current Medications Acetaminophen (Tylenol 325mg Tab) 650 mg PO Q6 PRN PRN Reason: Pain, moderate (4-7) Albuterol/Ipratropium (Duoneb 3 Mg/0.5 Mg (3 Ml) Ud) 3 ml INH RQ6 PRN PRN Reason: Shortness of Breath Amlodipine Besylate (Norvasc) 10 mg PO DAILY [facility] Last Admin: 03/23/19 10:35 Dose: 10 mg Aspirin (Ecotrin) 81 mg PO DAILY [facility] Last Admin: 03/23/19 10:35 Dose: 81 mg Carvedilol (Coreg) 25 mg PO BID [facility] Last Admin: 03/23/19 10:36 Dose: 25 mg Dextrose (Dextrose 50% Inj) 0 ml IV STAT PRN; Protocol PRN Reason: Hypoglycemia Protocol Dextrose (Glutose 15) 0 gm PO ONCE PRN; Protocol PRN Reason: Hypoglycemia Protocol Ergocalciferol (Drisdol 50,000 Intl Units Cap) 1 cap PO Q7D [facility] Stop: 06/05/19 09:31 Last Admin: 03/20/19 10:04 Dose: 1 cap Folic Acid (Folic Acid) 1 mg PO DAILY [facility] Last Admin: 03/23/19 10:34 Dose: 1 mg Furosemide (Lasix) 40 mg IVP Q24H [facility] Last Admin: 03/23/19 08:46 Dose: Not Given Furosemide (Lasix) 40 mg IVP Q24H [facility] Glucagon (Glucagen Diagnostic Kit) 0 mg IM STAT PRN; Protocol PRN Reason: Hypoglycemia Protocol Heparin Sodium (Porcine) (Heparin) 5,000 units SC Q8 [facility] Last Admin: 03/23/19 06:47 Dose: Not Given Hydralazine HCl (Apresoline) 50 mg PO TID [facility] Last Admin: 03/23/19 10:35 Dose: 50 mg Dextrose (Dextrose 5% In Water 1000 Ml) 1,000 mls @ 0 mls/hr IV .Q0M PRN; Protocol PRN Reason: Hypoglycemia Protocol Insulin Human Regular (Novolin R) 0 unit SC ACHS [facility]; Protocol Last Admin: 03/23/19 07:50 Dose: Not Given Metolazone (Zaroxolyn) 5 mg PO Q24H [facility] Last Admin: 03/23/19 08:32 Dose: 5 mg Minoxidil (Minoxidil) 2.5 mg PO Q24H [facility] Last Admin: 03/23/19 08:32 Dose: 2.5 mg Multivitamins (Hexavitamin) 1 tab PO DAILY [facility] Last Admin: 03/22/19 11:09 Dose: 1 tab Nicotine (Nicoderm Cq) 1 patch TD DAILY [facility] Last Admin: 03/23/19 10:43 Dose: 1 patch Polyethylene Glycol (Miralax) 17 gm PO DAILY [facility] Last Admin: 03/23/19 10:39 Dose: Not Given Sennosides (Senokot Tab) 8.6 mg PO DAILY [facility] Last Admin: 03/23/19 10:35 Dose: 8.6 mg Thiamine HCl (Vitamin B1 Tab) 100 mg PO DAILY [facility] Last Admin: 03/23/19 10:35 Dose: 100 mg Trazodone HCl (Desyrel) 100 mg PO HS PRN PRN Reason: Insomnia Physical Exam - Constitutional Appears: Non-toxic, No Acute Distress - Extremities Exam Additional comments: VASC: DP pulses palpable 2/4. PT pulses nonpalpable b/l. CFT <3 seconds to all digits x10. Temperature gradient cool to cool b/l. No edema noted. NEURO: Light touch and protective sensation intact bilaterally. DERM: Nails 1-5 thickened, elongated, and dystrophic. Hyperkeratoses noted sub 4th left foot and sub 5 right foot. No open lesions present. ORTHO: Pain on palpation noted to nails and hyperkeratoses. - Neurological Exam Neurological exam: Alert, Oriented x3 - Psychiatric Exam Psychiatric exam: Normal Affect, Normal Mood Results - Vital Signs Recent Vital Signs: Last Vital Signs Temp 98.8 F 03/23/19 07:42 Pulse 58 L 03/23/19 07:42 Resp 20 03/23/19 07:42 BP 122/78 03/23/19 10:36 Pulse Ox 97 03/23/19 07:42 - Labs Result Diagrams: 03/23/19 07:15 03/23/19 07:15 Labs: Laboratory Results - last 24 hr 03/19/19 03/19/19 03/19/19 11:55 11:55 11:55 WBC RBC Hgb Hct MCV MCH MCHC RDW Plt Count MPV Neut % (Auto) Lymph % (Auto) Estill % (Auto) Eos % (Auto) Baso % (Auto) Neut # (Auto) Lymph # (Auto) [place]ill # (Auto) Eos # (Auto) Baso # (Auto) Sodium Potassium Chloride Carbon Dioxide Anion Gap BUN Creatinine Est GFR ( Amer) Est GFR (Non-Af Amer) POC Glucose (mg/dL) Random Glucose Calcium Phosphorus Magnesium Total Bilirubin AST ALT Alkaline Phosphatase Total Protein Albumin Globulin Albumin/Globulin Ratio Renin 0.43 0.39 Aldosterone/Renin Ratio 25.6 PTH Intact Whole Molec Plasma Metanephrine 30 Plasma Normetanephrine 377 H Plas Total Metaneph 407 H 03/19/19 03/22/19 03/22/19 11:55 11:08 17:15 WBC RBC Hgb Hct MCV MCH MCHC RDW Plt Count MPV Neut % (Auto) Lymph % (Auto) [place]ill % (Auto) Eos % (Auto) Baso % (Auto) Neut # (Auto) Lymph # (Auto) [place]ill # (Auto) Eos # (Auto) Baso # (Auto) Sodium Potassium Chloride Carbon Dioxide Anion Gap BUN Creatinine Est GFR ( Amer) Est GFR (Non-Af Amer) POC Glucose (mg/dL) 121 H 134 H Random Glucose Calcium Phosphorus Magnesium Total Bilirubin AST ALT Alkaline Phosphatase Total Protein Albumin Globulin Albumin/Globulin Ratio Renin Aldosterone/Renin Ratio PTH Intact Whole Molec 335 H Plasma Metanephrine Plasma Normetanephrine Plas Total Metaneph 03/23/19 03/23/19 03/23/19 06:28 07:15 07:15 WBC 7.1 RBC 4.51 Hgb 14.2 Hct 42.2 MCV 93.7 MCH 31.4 H MCHC 33.5 RDW 15.3 H Plt Count 223 MPV 10.5 Neut % (Auto) 75.1 H Lymph % (Auto) 12.7 L Estill % (Auto) 8.2 Eos % (Auto) 3.2 Baso % (Auto) 0.8 Neut # (Auto) 5.3 Lymph # (Auto) 0.9 L Estill # (Auto) 0.6 Eos # (Auto) 0.2 Baso # (Auto) 0.1 Sodium 138 Potassium 3.7 Chloride 98 Carbon Dioxide 30 Anion Gap 14 BUN 42 H Creatinine 3.3 H Est GFR ( Amer) 17 Est GFR (Non-Af Amer) 14 POC Glucose (mg/dL) 116 H Random Glucose 133 H D Calcium 9.4 Phosphorus 4.3 Magnesium 2.0 Total Bilirubin 0.7 AST 34 ALT 23 Alkaline Phosphatase 132 H Total Protein 6.5 Albumin 3.7 Globulin 2.9 Albumin/Globulin Ratio 1.3 Renin Aldosterone/Renin Ratio PTH Intact Whole Molec Plasma Metanephrine Plasma Normetanephrine Plas Total Metaneph Assessment & Plan - Assessment and Plan (Free Text) Assessment: 58F with painful calluses and fungal nails Plan: Patient seen and evaluated Nails 1-5 b/l debrided in thickness and length without incident Calluses sharply pared without incident Patient tolerated well Patient to follow up in the podiatry clinic for continued routine care Podiatry to sign off at this time, please reconsult if new issues arise Thank you for the consult
--- NOTE | 2019-03-24 07:44 | CP.PCM.PN ---
<Robin Palacio - Last Filed: 03/24/19 14:55> Subjective - Date & Time of Evaluation Date of Evaluation: 03/24/19 Time of Evaluation: 09:30 - Subjective Subjective: Nephro Progress Note for Dr. Sarah Palacio DO, IM PGY-3 Patient seen and examined at bedside. No further hypotensive episodes reported, and patient denies any further episodes of facial numbness. Only complaint is intermittent leg pain, cramping, occurring especially at night. Denies chest pain, shortness of breath, abdominal pain, nausea, emesis. Pending another 24- hr urine collection (completes this evening), pending final path of renal bx ( should result today). Objective - Vital Signs/Intake and Output Vital Signs (last 24 hours): Temp Pulse Resp BP Pulse Ox 98.3 F 64 20 106/58 L 97 03/23/19 23:20 03/24/19 01:46 03/23/19 23:20 03/23/19 23:20 03/23/19 15:45 Intake and Output: 03/24/19 03/24/19 06:59 18:59 Intake Total 250 Balance 250 - Medications Medications: Current Medications Acetaminophen (Tylenol 325mg Tab) 650 mg PO Q6 PRN PRN Reason: Pain, moderate (4-7) Last Admin: 03/24/19 03:14 Dose: 650 mg Albuterol/Ipratropium (Duoneb 3 Mg/0.5 Mg (3 Ml) Ud) 3 ml INH RQ6 PRN PRN Reason: Shortness of Breath Amlodipine Besylate (Norvasc) 10 mg PO DAILY [facility] Last Admin: 03/23/19 10:35 Dose: 10 mg Aspirin (Ecotrin) 81 mg PO DAILY [facility] Last Admin: 03/23/19 10:35 Dose: 81 mg Carvedilol (Coreg) 25 mg PO BID [facility] Last Admin: 03/23/19 17:55 Dose: 25 mg Dextrose (Dextrose 50% Inj) 0 ml IV STAT PRN; Protocol PRN Reason: Hypoglycemia Protocol Dextrose (Glutose 15) 0 gm PO ONCE PRN; Protocol PRN Reason: Hypoglycemia Protocol Docusate Sodium (Colace) 100 mg PO TID [facility] Last Admin: 03/23/19 17:54 Dose: 100 mg Ergocalciferol (Drisdol 50,000 Intl Units Cap) 1 cap PO Q7D [facility] Stop: 06/05/19 09:31 Last Admin: 03/20/19 10:04 Dose: 1 cap Folic Acid (Folic Acid) 1 mg PO DAILY [facility] Last Admin: 03/23/19 10:34 Dose: 1 mg Furosemide (Lasix) 40 mg IVP Q24H [facility] Last Admin: 03/23/19 08:46 Dose: Not Given Furosemide (Lasix) 40 mg IVP Q24H [facility] Glucagon (Glucagen Diagnostic Kit) 0 mg IM STAT PRN; Protocol PRN Reason: Hypoglycemia Protocol Heparin Sodium (Porcine) (Heparin) 5,000 units SC Q8 [facility] Last Admin: 03/23/19 22:44 Dose: Not Given Hydralazine HCl (Apresoline) 50 mg PO TID [facility] Last Admin: 03/23/19 17:54 Dose: Not Given Dextrose (Dextrose 5% In Water 1000 Ml) 1,000 mls @ 0 mls/hr IV .Q0M PRN; Protocol PRN Reason: Hypoglycemia Protocol Insulin Human Regular (Novolin R) 0 unit SC ACHS ENRIQUE; Protocol Last Admin: 03/23/19 22:40 Dose: Not Given Metolazone (Zaroxolyn) 5 mg PO Q24H [facility] Last Admin: 03/23/19 08:32 Dose: 5 mg Multivitamins (Hexavitamin) 1 tab PO DAILY [facility] Last Admin: 03/23/19 10:34 Dose: 1 tab Nicotine (Nicoderm Cq) 1 patch TD DAILY [facility] Last Admin: 03/23/19 10:43 Dose: 1 patch Polyethylene Glycol (Miralax) 17 gm PO DAILY [facility] Last Admin: 03/23/19 10:39 Dose: Not Given Sennosides (Senokot Tab) 8.6 mg PO DAILY [facility] Last Admin: 03/23/19 10:35 Dose: 8.6 mg Thiamine HCl (Vitamin B1 Tab) 100 mg PO DAILY [facility] Last Admin: 03/23/19 10:35 Dose: 100 mg Trazodone HCl (Desyrel) 100 mg PO HS PRN PRN Reason: Insomnia Last Admin: 03/23/19 22:43 Dose: 100 mg - Labs Labs: 03/23/19 07:15 03/23/19 07:15 PT 12.1 SECONDS (9.7-12.2) 03/22/19 07:01 INR 1.1 03/22/19 07:01 APTT 34.0 SECONDS (21-34) 03/22/19 07:01 - Additional Findings Additional findings: - Constitutional Appears: Non-toxic, No Acute Distress - Head Exam Head Exam: ATRAUMATIC, NORMOCEPHALIC - Eye Exam Eye Exam: EOMI. absent: Conjunctival injection, Scleral icterus Pupil Exam: absent: Irregular, Unequal - ENT Exam ENT Exam: Mucous Membranes Moist - Neck Exam Neck exam: Negative for: Lymphadenopathy, Thyromegaly - Respiratory Exam Respiratory Exam: Clear to Auscultation Bilateral, Prolonged Expiratory Phase, NORMAL BREATHING PATTERN. absent: Accessory Muscle Use, Chest Wall Tenderness, Decreased Breath Sounds, Rales, Rhonchi, Wheezes - Cardiovascular Exam Cardiovascular Exam: REGULAR RHYTHM, RRR, +S1, +S2. absent: Bradycardia, Tachycardia, Irregular Rhythm, JVD, +S4 - GI/Abdominal Exam resolved abdominal distension (now soft and without tenderness on palpation/compression, less firm and less tender diffusely) No spider angiomata or caput medusa appreciated Normal bowel sounds - Extremities Exam Extremities exam: Appropriate ROM, significantly reduced pedal edema (down to trace in bilateral ankles to shins), static tenderness in bilateral LE (cramping sensation, not worsened with palpation). Negative for: calf tenderness, pedal pulses present (unable to palpate pulses through pedal edema) - Back Exam Back exam: absent: CVA tenderness (L), CVA tenderness (R) - Neurological Exam Awake and alert, moving all extremities spontaneously and on command - Psychiatric Exam Psychiatric exam: Normal Affect, Normal Mood - Skin Skin Exam: Intact, Normal Color, waxy skin tone at bilateral LE from ankles to mid-thighs Assessment and Plan - Assessment and Plan (Free Text) Assessment: This is a 58 yo F with PMH of HTN, DM2, CVA x2 (first in 2005, date of 2nd unkno wn), CKD, and frequent cocaine and heroin abuse (snort/smoking, denies ever injecting) who presented to [facility] with complaints of progressively swelling bilateral LE x2-3 months, progressively worsening shortness of breath (exertional and intermittently at rest), and worsening abdominal swelling and pain x2 months. Nephro was consulted due to SUSANNAH over CVD vs progressively worsening renal function. S/p renal biopsy, pending path and decision on AVF/HD. Plan: 1) Bilateral LE and abdominal swelling, possible anasarca 2) Active tobacco, cocaine, and heroin abuse 3) HTN 4) DM2 5) Hx CVA x2 6) Worsening renal function SUSANNAH on CKD vs Progressive renal failure 7) Medication non-compliance 8) Left-sided facial numbness -Cr 2.6 on admission, last 3.3, 1.7-1.9 in 2018, 1.1-1.3 in 2017 Progressively worsening, unclear etiology; drug-induced (vasospasm from tana aaron vs hypoperfusing 2/2 heroin use), cardiorenal, DM nephropathy A1c 6.0, last was 6.1, so DM well controlled, but can still have DM nephropathy despite well-controlled DM Pending another 24hr creatinine clearance and protein collection (completes tonight) Presentation strongly suggestive of CHF exacerbation, Echo 03/17 notable for EF 60% but moderate to severe LVH and severe Pulm HTN S/p renal biopsy, pending path LE edema greatly improved -BP control Episode of transient L facial numbness with acutely lowered BP concerning for possible TIA yesterday, no further recurrence Current regimen: Amlodipine 10mg, Coreg 25mg BID, Hydralazine 50mg TID (hold for SBP < 140), Lasix 40mg IV BID, metalazone 5mg daily Goal SBP 130's-140's Given current Cr and eGFR, would avoid CHARLINE/ARB until underlying etiology of renal dysfunction determined -Cardio consulted, appreciate their recs -urine electrolytes, complement, JEAN-PAUL, and ANCA ordered, f/u JEAN-PAUL and ANCA negative, complement wnl Urine electrolytes: Na 112, K 22.2, Cr 19.7, Urea 150 -Vein mapping US completed, Vasc surg consulted for evaluation for possible AVF Recommend defer AVF until results of bx return -Given CT abd/pelvis findings concerning for possible adrenal adenomas, workup for pheo, hyperaldo, and subclinical vandana's ordered Suppressed AM Cortisol after 1mg dexamethasone suppresion test Aldosterone, renin, and yady:renin ratio wnl PTH elevated, likely secondary to progressive CKD Metanephrines elevated, but not sufficiently elevated to be strongly indicative of pheo Patient reviewed and discussed with attending, Dr. Smith <Arvin Smith - Last Filed: 03/25/19 02:44> Objective - Vital Signs/Intake and Output Vital Signs (last 24 hours): Temp Pulse Resp BP Pulse Ox 98.3 F 57 L 20 146/76 97 03/23/19 23:20 03/24/19 15:21 03/23/19 23:20 03/24/19 15:21 03/23/19 15:45 Intake and Output: 03/24/19 03/25/19 18:59 06:59 Intake Total 480 Output Total 1175 Balance -695 - Medications Medications: Current Medications Acetaminophen (Tylenol 325mg Tab) 650 mg PO Q6 PRN PRN Reason: Pain, moderate (4-7) Last Admin: 03/24/19 15:19 Dose: 650 mg Albuterol/Ipratropium (Duoneb 3 Mg/0.5 Mg (3 Ml) Ud) 3 ml INH RQ6 PRN PRN Reason: Shortness of Breath Amlodipine Besylate (Norvasc) 10 mg PO DAILY [facility] Last Admin: 03/24/19 10:43 Dose: 10 mg Aspirin (Ecotrin) 81 mg PO DAILY [facility] Last Admin: 03/24/19 10:47 Dose: 81 mg Carvedilol (Coreg) 25 mg PO BID [facility] Last Admin: 03/24/19 19:00 Dose: Not Given Dextrose (Dextrose 50% Inj) 0 ml IV STAT PRN; Protocol PRN Reason: Hypoglycemia Protocol Dextrose (Glutose 15) 0 gm PO ONCE PRN; Protocol PRN Reason: Hypoglycemia Protocol Docusate Sodium (Colace) 100 mg PO TID [facility] Last Admin: 03/24/19 19:00 Dose: Not Given Ergocalciferol (Drisdol 50,000 Intl Units Cap) 1 cap PO Q7D [facility] Stop: 05/05/19 12:01 Last Admin: 03/24/19 15:19 Dose: 1 cap Folic Acid (Folic Acid) 1 mg PO DAILY [facility] Last Admin: 03/24/19 10:47 Dose: 1 mg Furosemide (Lasix) 40 mg IVP Q24H [facility] Last Admin: 03/24/19 09:04 Dose: Not Given Furosemide (Lasix) 40 mg IVP Q24H [facility] Glucagon (Glucagen Diagnostic Kit) 0 mg IM STAT PRN; Protocol PRN Reason: Hypoglycemia Protocol Heparin Sodium (Porcine) (Heparin) 5,000 units SC Q8 [facility] Last Admin: 03/23/19 22:44 Dose: Not Given Hydralazine HCl (Apresoline) 50 mg PO TID [facility] Last Admin: 03/24/19 19:00 Dose: Not Given Dextrose (Dextrose 5% In Water 1000 Ml) 1,000 mls @ 0 mls/hr IV .Q0M PRN; Protocol PRN Reason: Hypoglycemia Protocol Insulin Human Regular (Novolin R) 0 unit SC ACHS ENRIQUE; Protocol Last Admin: 03/24/19 21:26 Dose: Not Given Metolazone (Zaroxolyn) 5 mg PO Q24H [facility] Last Admin: 03/24/19 09:00 Dose: 5 mg Multivitamins (Hexavitamin) 1 tab PO DAILY [facility] Last Admin: 03/24/19 10:49 Dose: 1 tab Nicotine (Nicoderm Cq) 1 patch TD DAILY [facility] Stop: 04/28/19 23:59 Last Admin: 03/24/19 10:54 Dose: 1 patch Polyethylene Glycol (Miralax) 17 gm PO DAILY [facility] Last Admin: 03/24/19 11:03 Dose: Not Given Sennosides (Senokot Tab) 8.6 mg PO DAILY [facility] Last Admin: 03/24/19 10:41 Dose: 8.6 mg Thiamine HCl (Vitamin B1 Tab) 100 mg PO DAILY [facility] Last Admin: 03/24/19 10:47 Dose: 100 mg Trazodone HCl (Desyrel) 100 mg PO HS PRN PRN Reason: Insomnia Last Admin: 03/24/19 22:27 Dose: 100 mg - Labs Labs: 03/24/19 20:12 03/24/19 20:30 PT 12.1 SECONDS (9.7-12.2) 03/24/19 20:12 INR 1.1 03/24/19 20:12 APTT 35.0 SECONDS (21-34) H 03/24/19 20:12 Assessment and Plan (1) SUSANNAH (acute kidney injury) Status: Acute (2) Hypertensive chronic kidney disease Status: Acute (3) CHF (congestive heart failure) Status: Acute (4) Proteinuria Status: Chronic Attending/Attestation - Attestation I have personally seen and examined this patient.: Yes I have fully participated in the care of the patient.: Yes I have reviewed all pertinent clinical information, including history, physical exam and plan: Yes Notes (Text): Patient seen and examined; I agree with the resident's note as above with the following additions/edits: 58 yo F w/ pmh of htn, dm, substance abuse and advanced CKD, admitted with acute decompensated diastolic CHF and worsening renal failure; Renal biopsy results reviewed with pathologist today; has diabetic nephropathy changes along with vascular disease and segmental glomerular sclerosis on a background of marked interstitial fibrosis; findings are consistent with impending ESRD status; furthermore, repeat 24 hr urine (for the third time, this time with presumably complete collection) showing CrCl 13 ml/min, only slightly better than previous 2 results but still worse than eGFR; at this point, the fest course of action would be to initiate patient on HD as ESRD, especially since her followup is questionable and volume status will be difficult to control as outpatient with PO diuretics alone; biopsy also indicates that any recovery of meaningful renal is highly unlikely; BP control loosened after patient had transient symptoms yesterday possibly consistent with hypoperfusion; minoxidil stopped, continuing rest of meds including lasix 40 mg IV daily and metolazone 5 mg daily in the setting of decompensated CHF/pulm htn; Patient reporting L foot pain; reports having gout many years ago; will check uric acid level; -Patient for AVF creation tomorrow with vasc surgery; will inform her that tunneled catheter should be placed as well for initiation of HD on this admission (was discussed with her but we said that we will make our decision pending repeat CrCl);
[2019-03-24] MEDS: (Novolin R) Insulin Human Regular 100 units/ml vial SC SCH ×4 (08:57→21:26)
[2019-03-24] MEDS: metOLazone 5 MG TAB PO SCH (09:00)
--- NOTE | 2019-03-24 10:33 | CP.PCM.PN ---
<Alivia Vo - Last Filed: 03/24/19 12:18> Subjective - Date & Time of Evaluation Date of Evaluation: 03/24/19 Time of Evaluation: 10:33 - Subjective Subjective: PGY-1 Alivia Vo D.O. Medicine progress note for Dr. Amor Tirado's service: Patient was seen and examined this morning. Patient is complaining of leg pain and R foot pain. The leg pain has been present for awhile. R foot pain is after callus removed yesterday. Patient states she had 2 good BMs yesterday. The facial tingling she experiences yesterday is completely resolved. Patient has been refusing blood work and some medications. Explain to patient that we are likely heading toward dialysis, and it is very important that we monitor her labs and how she is on the medications. Patient states she understands. Additionally, explained to patient that since she does not have insurance, it will be a more lengthy process to obtain an outpatient dialysis spot (weeks-months). Patient is disappointed by this news, but understands. Patient is encouraged to remain active but walking around the hallways and have friends visit. Objective - Vital Signs/Intake and Output Vital Signs (last 24 hours): Temp Pulse Resp BP Pulse Ox 98.3 F 64 20 106/58 L 97 03/23/19 23:20 03/24/19 01:46 03/23/19 23:20 03/23/19 23:20 03/23/19 15:45 Intake and Output: 03/24/19 03/24/19 06:59 18:59 Intake Total 250 Balance 250 - Medications Medications: Current Medications Acetaminophen (Tylenol 325mg Tab) 650 mg PO Q6 PRN PRN Reason: Pain, moderate (4-7) Last Admin: 03/24/19 03:14 Dose: 650 mg Albuterol/Ipratropium (Duoneb 3 Mg/0.5 Mg (3 Ml) Ud) 3 ml INH RQ6 PRN PRN Reason: Shortness of Breath Amlodipine Besylate (Norvasc) 10 mg PO DAILY [facility] Last Admin: 03/23/19 10:35 Dose: 10 mg Aspirin (Ecotrin) 81 mg PO DAILY [facility] Last Admin: 03/23/19 10:35 Dose: 81 mg Carvedilol (Coreg) 25 mg PO BID [facility] Last Admin: 03/23/19 17:55 Dose: 25 mg Dextrose (Dextrose 50% Inj) 0 ml IV STAT PRN; Protocol PRN Reason: Hypoglycemia Protocol Dextrose (Glutose 15) 0 gm PO ONCE PRN; Protocol PRN Reason: Hypoglycemia Protocol Docusate Sodium (Colace) 100 mg PO TID [facility] Last Admin: 03/23/19 17:54 Dose: 100 mg Ergocalciferol (Drisdol 50,000 Intl Units Cap) 1 cap PO Q7D [facility] Stop: 06/05/19 09:31 Last Admin: 03/20/19 10:04 Dose: 1 cap Folic Acid (Folic Acid) 1 mg PO DAILY [facility] Last Admin: 03/23/19 10:34 Dose: 1 mg Furosemide (Lasix) 40 mg IVP Q24H [facility] Last Admin: 03/24/19 09:04 Dose: Not Given Furosemide (Lasix) 40 mg IVP Q24H [facility] Glucagon (Glucagen Diagnostic Kit) 0 mg IM STAT PRN; Protocol PRN Reason: Hypoglycemia Protocol Heparin Sodium (Porcine) (Heparin) 5,000 units SC Q8 [facility] Last Admin: 03/23/19 22:44 Dose: Not Given Hydralazine HCl (Apresoline) 50 mg PO TID [facility] Last Admin: 03/23/19 17:54 Dose: Not Given Dextrose (Dextrose 5% In Water 1000 Ml) 1,000 mls @ 0 mls/hr IV .Q0M PRN; Protocol PRN Reason: Hypoglycemia Protocol Insulin Human Regular (Novolin R) 0 unit SC ACHS [facility]; Protocol Last Admin: 03/24/19 08:57 Dose: Not Given Metolazone (Zaroxolyn) 5 mg PO Q24H [facility] Last Admin: 03/24/19 09:00 Dose: 5 mg Multivitamins (Hexavitamin) 1 tab PO DAILY [facility] Last Admin: 03/23/19 10:34 Dose: 1 tab Nicotine (Nicoderm Cq) 1 patch TD DAILY [facility] Last Admin: 03/23/19 10:43 Dose: 1 patch Polyethylene Glycol (Miralax) 17 gm PO DAILY [facility] Last Admin: 03/23/19 10:39 Dose: Not Given Sennosides (Senokot Tab) 8.6 mg PO DAILY [facility] Last Admin: 03/23/19 10:35 Dose: 8.6 mg Thiamine HCl (Vitamin B1 Tab) 100 mg PO DAILY [facility] Last Admin: 03/23/19 10:35 Dose: 100 mg Trazodone HCl (Desyrel) 100 mg PO HS PRN PRN Reason: Insomnia Last Admin: 03/23/19 22:43 Dose: 100 mg - Labs Labs: 03/23/19 07:15 03/23/19 07:15 PT 12.1 SECONDS (9.7-12.2) 03/22/19 07:01 INR 1.1 03/22/19 07:01 APTT 34.0 SECONDS (21-34) 03/22/19 07:01 - Back Exam Additional comments: spot of L renal Bx is clean, no signs of bleeding, bruising, or hematoma; minimal tenderness with palpation - Additional Findings Additional findings: - Constitutional Appears: Non-toxic, No Acute Distress - Head Exam Head Exam: ATRAUMATIC, NORMAL INSPECTION - Eye Exam Additional comments: R eye fixed laterally - ENT Exam ENT Exam: Mucous Membranes Moist - Neck Exam Neck Exam: Normal Inspection - Respiratory Exam Respiratory Exam: Clear to Ausculation Bilateral, NORMAL BREATHING PATTERN. absent: Respiratory Distress - Cardiovascular Exam Cardiovascular Exam: RRR, +S1, +S2 - GI/Abdominal Exam GI & Abdominal Exam: Soft. absent: Distended, Tenderness - Extremities Exam Extremities Exam: Normal Inspection, Tenderness. absent: Pedal Edema Additional comments: RUE midline - Neurological Exam Neurological Exam: Alert, Awake, Normal Gait, Oriented x3 - Psychiatric Exam Psychiatric exam: Normal Affect, Normal Mood - Skin Skin Exam: Dry, Normal Color, Warm Assessment and Plan - Assessment and Plan (Free Text) Assessment: Patient is a 58 yo female with CKD, HTN, T2DM, and polysubstance use (heroin and cocaine) who presented with leg swelling and abdominal pain. Patient found to have worsening kidney disease and severe constipation. Echo notable for severe pulm HTN. Patient also Patient had L renal biopsy on 03/22. Nephro likely plans for dialysis on pathology results. Patient had vein mapping. Plan: Chronic kidney disease, worsening - BUN 28-->44, Cr 2.6-->3.3 - UA: 2+ prot, 1+ blood, 17 WBC, 7 RBC - 03/2018 random prot >8 gm - D-dimer 634 - BNP 31,300--> 12,300 - PTH 335 - H&H wnl - Serum osm 311 - Complement (C3, C4) wnl - ANCA, proteinase 3, myeloperoxidase Ab negative - Renin, aldosterone, ratio wnl - Vein mapping done on 03/20 - 24-hr urine collection x2- total volume 1950, 1025 (suspect inappropriately collected) - Protein high (3042, 1916) - Cr clearance low (10, 9) - Renal US: echogenic kidneys - L renal Bx on 03/22- pathology pending (tissue sent to [facility], expecting read by end of this week or early next week) - Metolazone 5 mg PO daily - Discontinue Minoxidil 2.5 mg PO daily (8am) as per nephro - Nephrology consulted ([facility])- avoid ACEI/ARB, patient will most likely need to start dialysis pending renal Bx results - Vascular surgery consulted (Kim)- vein mapping, will insert permacath once dialysis indicated Hypertension, chronic, poorly controlled- SBP goal 130-140 - Echo: mod-severe concentric LVH - Vitals Q6H - Lasix 40 mg IV BID (8am, 2pm)- hold 2pm dose for now as per nephro - Norvasc 10 mg PO daily (8am) - Hydralazine 50 mg PO Q8H (8am, 2pm, 8pm)- hold if SBP <140 - Coreg 25 mg PO BID (10am, 6pm) - Metolazone 5 mg PO daily (8am) Acute decompensated diastolic congestive heart failure (HFpEF), improving - CXR: cardiomegaly, L pleural effusion - EKG: NSR, PVCs - LE Dopplers: no DVT - Echo: EF 62%, mod-severe LVH, severe pulm HTN, mod TR - CT A/P: Mild CHF suspected. [id number] left and mild right pleural effusions identified. - BNP 31,300--> 12,300 - Trop negative - Monitor on telemetry - Fluid restriction 1500 mL - Strict Is & Os - 03/23: + 30 mL - Daily weights- 75 kg--> 65 kg - Duoneb Q6H PRN - Lasix 40 mg IV Q12H - Coreg 25 mg PO BID - Cardiology consulted (Randa) Constipation, acute on chronic, improving - CT A/P: Prominent fecal loading is seen throughout the ascending through transverse large-bowel segments and is otherwise mild without gross mural thickening evident. - Senokot 8.6 mg PO daily - Miralax 17 g PO daily - Colace 100 mg PO TID - Lactulose x1 on 03/19, x1 on 03/22 - Mineral oil enema x1 on 03/19, x1 on 03/20 Hepatis steatosis, chronic - HIV and hepatitis negative - LFTs wnl - Albumin low - Abd US: mild hepatomegaly. Diffuse increased echogenicity in the liver may reflect hepatic steatosis. Nodular contour of the liver could represent cirrhosis. Medical renal disease. Gallbladder is contracted but no cholelithiasis. Mild diffuse dilation of the common bile duct without evidence for choledocholithiasis. - CT A/P: Hepatomegaly noted without focal mass or gross intrahepatic biliary duct dilatation. Mild anasarca. - Hepatobiliary surgeon consulted (Wilson) Polysubstance use disorder, chronic- heroin (intranasal), cocaine, tobacco, alcohol - UDS positive for cocaine and opiates - BAL <10 - HIV and hepatitis negative - CIWA (0) - Trazodone 100 mg PO QHS PRN - Completed Methadone taper - Nicoderm daily - Multivitamin daily - Thiamine 100 mg PO daily - Folate 1 mg PO daily - Psychiatry consulted (Meli) Vitamin D deficiency- suspect 2/2 kidney disease - 25-OH vit D <12.5 - Vitamin D 50,000 IU Q1WK on 03/20 (Friday) x 8 doses H/o type 2 diabetes mellitus, chronic - A1c 6 - Accuchecks ACHS - Range 130-150 - Hypoglycemia protocol - ISS low - ASA 81 mg PO daily - Podiatry consulted (Ibrahima)- diabetic foot exam and nail care Adrenal mass/hyperplasia, chronic - CT A/P: Benign right adrenal adenoma suspected. Left adrenal hyperplasia i dentified and may coexistent right adrenal gland. - 1 mg Dexamethasone suppression test- AM cortisol low (4.3) - Plasma metaneprhine wnl - Plasma normetanephrine elev (377) Ppx: VTE: SCDs contraindicated, Heparin 5000 units SC Q8H GI: Pepcid 20 mg PO daily Diet: Heart healthy, renal, 2g Na Code status: full code Dispo: Worsening renal function. Pending renal biopsy pathology. Likely hemodialysis after results. Case was discussed with attending, Dr. Amor Tirado. <Pardeep Tirado - Last Filed: 03/26/19 19:00> Objective - Vital Signs/Intake and Output Vital Signs (last 24 hours): Temp Pulse Resp BP Pulse Ox 97 F L 121 H 18 151/89 H 96 03/26/19 15:02 03/26/19 16:00 03/26/19 15:02 03/26/19 17:46 03/26/19 15:02 Intake and Output: 03/26/19 03/26/19 06:59 18:59 Intake Total 400 300 Output Total 150 Balance 250 300 - Medications Medications: Current Medications Acetaminophen (Tylenol 325mg Tab) 650 mg PO Q6 PRN PRN Reason: Pain, moderate (4-7) Last Admin: 03/26/19 09:50 Dose: 325 mg Albuterol/Ipratropium (Duoneb 3 Mg/0.5 Mg (3 Ml) Ud) 3 ml INH RQ6 PRN PRN Reason: Shortness of Breath Amlodipine Besylate (Norvasc) 10 mg PO Q24H [facility] Last Admin: 03/26/19 08:10 Dose: 10 mg Apixaban (Eliquis) 5 mg PO BID [facility] Aspirin (Ecotrin) 81 mg PO DAILY [facility] Last Admin: 03/26/19 10:19 Dose: 81 mg Carvedilol (Coreg) 12.5 mg PO BID [facility] Last Admin: 03/26/19 17:46 Dose: 12.5 mg Dextrose (Dextrose 50% Inj) 0 ml IV STAT PRN; Protocol PRN Reason: Hypoglycemia Protocol Dextrose (Glutose 15) 0 gm PO ONCE PRN; Protocol PRN Reason: Hypoglycemia Protocol Docusate Sodium (Colace) 100 mg PO TID [facility] Last Admin: 03/26/19 17:49 Dose: 100 mg Ergocalciferol (Drisdol 50,000 Intl Units Cap) 1 cap PO Q7D [facility] Stop: 05/05/19 12:01 Last Admin: 03/24/19 15:19 Dose: 1 cap Folic Acid (Folic Acid) 1 mg PO DAILY [facility] Last Admin: 03/26/19 10:19 Dose: 1 mg Furosemide (Lasix) 40 mg PO Q24H [facility] Last Admin: 03/26/19 08:09 Dose: 40 mg Gabapentin (Neurontin) 100 mg PO DAILY [facility] Last Admin: 03/26/19 10:19 Dose: 100 mg Glucagon (Glucagen Diagnostic Kit) 0 mg IM STAT PRN; Protocol PRN Reason: Hypoglycemia Protocol Hydralazine HCl (Apresoline) 25 mg PO TID [facility] Last Admin: 03/26/19 17:48 Dose: 25 mg Dextrose (Dextrose 5% In Water 1000 Ml) 1,000 mls @ 0 mls/hr IV .Q0M PRN; Protocol PRN Reason: Hypoglycemia Protocol Insulin Human Regular (Novolin R) 0 unit SC ACHS [facility]; Protocol Last Admin: 03/26/19 17:30 Dose: Not Given Losartan Potassium (Cozaar) 25 mg PO DAILY [facility] Metolazone (Zaroxolyn) 5 mg PO QAM [facility] Last Admin: 03/26/19 10:19 Dose: 5 mg Multivitamins (Hexavitamin) 1 tab PO DAILY [facility] Last Admin: 03/26/19 10:19 Dose: 1 tab Nicotine (Nicoderm Cq) 1 patch TD DAILY [facility] Stop: 04/28/19 23:59 Last Admin: 03/26/19 10:18 Dose: 1 patch Polyethylene Glycol (Miralax) 17 gm PO DAILY [facility] Last Admin: 03/25/19 10:00 Dose: Not Given Thiamine HCl (Vitamin B1 Tab) 100 mg PO DAILY [facility] Last Admin: 03/26/19 10:20 Dose: 100 mg Trazodone HCl (Desyrel) 100 mg PO HS PRN PRN Reason: Insomnia Last Admin: 03/25/19 22:45 Dose: 100 mg - Labs Labs: 03/25/19 07:55 03/25/19 11:36 PT 12.3 SECONDS (9.7-12.2) H 03/25/19 07:55 INR 1.1 03/25/19 07:55 APTT 38.0 SECONDS (21-34) H 03/25/19 07:55 Attending/Attestation - Attestation I have personally seen and examined this patient.: Yes I have fully participated in the care of the patient.: Yes I have reviewed all pertinent clinical information, including history, physical exam and plan: Yes Notes (Text): 03/26/19 18:59 This is a late entry. Patient was seen and examined with resident Dr. Vo. Care of this patient was gone over in detail with resident Dr. Vo. Pardeep Tirado D.O.
[2019-03-24] MEDS: Multiple Vitamins Tab PO SCH (10:49)
[2019-03-24] MEDS: POLYETHYLENE GLYCOL 3350 17 GM/Dose PACKET PO SCH (11:03)
[2019-03-24] MEDS: Ergocalciferol 50,000 Intl Units Cap PO SCH (15:19)
[2019-03-24 20:27] LABS: BASO # 0.1 K/uL (0.0-0.2); BASO % 0.9 % (0.0-2.0); EOS # 0.2 K/uL (0.0-0.7); EOS % 3.3 % (0.0-4.0); HEMOGLOBIN 14.7 g/dL (11.0-16.0); LYMPH # 0.9 K/uL (1.0-4.3); LYMPH % 15.2 % (20.0-40.0); MEAN CELL VOLUME 92.2 fL (81.0-99.0); MEAN CORPUSCULAR HEMOGLOBIN 30.3 pg (27.0-31.0); MEAN CORPUSCULAR HGB CONC 32.8 g/dL (33.0-37.0); MEAN PLATELET VOLUME 10.6 fL (7.2-11.7); MONO # 0.4 K/uL (0.0-0.8); MONO % 7.1 % (0.0-10.0); NEUT # 4.3 K/uL (1.8-7.0); NEUT % 73.5 % (50.0-75.0); RBC 4.86 Mil/uL (3.80-5.20); RED CELL DISTRIBUTION WIDTH 15.4 % (11.5-14.5); WHITE BLOOD COUNT 5.9 K/uL (4.8-10.8)
[2019-03-24 20:36] LABS: INR 1.1; PROTHROMBIN TIME 12.1 SECONDS (9.7-12.2)
[2019-03-24 20:42] LABS: ALB/GLOB RATIO 1.2 (1.0-2.1); ALBUMIN 3.9 g/dL (3.5-5.0); CALCIUM 9.4 mg/dl (8.6-10.4)
--- NOTE | 2019-03-25 06:48 | CP.PCM.PN ---
<Robin Palacio - Last Filed: 03/25/19 16:50> Subjective - Date & Time of Evaluation Date of Evaluation: 03/25/19 Time of Evaluation: 07:30 - Subjective Subjective: Nephro Progress Note for Dr. Smith Service Robin Palacio DO, IM PGY-3 Patient seen and examined at bedside. No further hypotensive episodes reported, and patient denies any further episodes of facial numbness. Only complaint is intermittent leg pain, cramping, occurring especially at night. Denies chest pain, shortness of breath, abdominal pain, nausea, emesis. 24hr urine collection shows Cr clearance of 13, and renal biospy results suggestive of pending ESRD, so will need permacath as well as AVF, since will need to start HD before AVF matures. Objective - Vital Signs/Intake and Output Vital Signs (last 24 hours): Temp Pulse Resp BP Pulse Ox 98.3 F 82 20 121/65 97 03/23/19 23:20 03/24/19 23:35 03/23/19 23:20 03/24/19 23:20 03/23/19 15:45 Intake and Output: 03/24/19 03/25/19 18:59 06:59 Intake Total 480 Output Total 1175 Balance -695 - Medications Medications: Current Medications Acetaminophen (Tylenol 325mg Tab) 650 mg PO Q6 PRN PRN Reason: Pain, moderate (4-7) Last Admin: 03/25/19 06:23 Dose: 650 mg Albuterol/Ipratropium (Duoneb 3 Mg/0.5 Mg (3 Ml) Ud) 3 ml INH RQ6 PRN PRN Reason: Shortness of Breath Amlodipine Besylate (Norvasc) 10 mg PO DAILY [facility] Last Admin: 03/24/19 10:43 Dose: 10 mg Aspirin (Ecotrin) 81 mg PO DAILY [facility] Last Admin: 03/24/19 10:47 Dose: 81 mg Carvedilol (Coreg) 25 mg PO BID [facility] Last Admin: 03/24/19 19:00 Dose: Not Given Dextrose (Dextrose 50% Inj) 0 ml IV STAT PRN; Protocol PRN Reason: Hypoglycemia Protocol Dextrose (Glutose 15) 0 gm PO ONCE PRN; Protocol PRN Reason: Hypoglycemia Protocol Docusate Sodium (Colace) 100 mg PO TID [facility] Last Admin: 03/24/19 19:00 Dose: Not Given Ergocalciferol (Drisdol 50,000 Intl Units Cap) 1 cap PO Q7D [facility] Stop: 05/05/19 12:01 Last Admin: 03/24/19 15:19 Dose: 1 cap Folic Acid (Folic Acid) 1 mg PO DAILY [facility] Last Admin: 03/24/19 10:47 Dose: 1 mg Furosemide (Lasix) 40 mg IVP Q24H [facility] Last Admin: 03/24/19 09:04 Dose: Not Given Furosemide (Lasix) 40 mg IVP Q24H [facility] Glucagon (Glucagen Diagnostic Kit) 0 mg IM STAT PRN; Protocol PRN Reason: Hypoglycemia Protocol Heparin Sodium (Porcine) (Heparin) 5,000 units SC Q8 [facility] Last Admin: 03/23/19 22:44 Dose: Not Given Hydralazine HCl (Apresoline) 50 mg PO TID [facility] Last Admin: 03/24/19 19:00 Dose: Not Given Dextrose (Dextrose 5% In Water 1000 Ml) 1,000 mls @ 0 mls/hr IV .Q0M PRN; Protocol PRN Reason: Hypoglycemia Protocol Insulin Human Regular (Novolin R) 0 unit SC ACHS [facility]; Protocol Last Admin: 03/24/19 21:26 Dose: Not Given Metolazone (Zaroxolyn) 5 mg PO Q24H [facility] Last Admin: 03/24/19 09:00 Dose: 5 mg Multivitamins (Hexavitamin) 1 tab PO DAILY [facility] Last Admin: 03/24/19 10:49 Dose: 1 tab Nicotine (Nicoderm Cq) 1 patch TD DAILY [facility] Stop: 04/28/19 23:59 Last Admin: 03/24/19 10:54 Dose: 1 patch Polyethylene Glycol (Miralax) 17 gm PO DAILY [facility] Last Admin: 03/24/19 11:03 Dose: Not Given Sennosides (Senokot Tab) 8.6 mg PO DAILY [facility] Last Admin: 03/24/19 10:41 Dose: 8.6 mg Thiamine HCl (Vitamin B1 Tab) 100 mg PO DAILY [facility] Last Admin: 03/24/19 10:47 Dose: 100 mg Trazodone HCl (Desyrel) 100 mg PO HS PRN PRN Reason: Insomnia Last Admin: 03/24/19 22:27 Dose: 100 mg - Labs Labs: 03/24/19 20:12 03/24/19 20:30 PT 12.1 SECONDS (9.7-12.2) 03/24/19 20:12 INR 1.1 03/24/19 20:12 APTT 35.0 SECONDS (21-34) H 03/24/19 20:12 - Additional Findings Additional findings: - Constitutional Appears: Non-toxic, No Acute Distress - Head Exam Head Exam: ATRAUMATIC, NORMOCEPHALIC - Eye Exam Eye Exam: EOMI, Right eye with fixed gaze defect (lateral and superior). absent: Conjunctival injection, Scleral icterus Pupil Exam: absent: Irregular, Unequal - ENT Exam ENT Exam: Mucous Membranes Moist - Neck Exam Neck exam: Negative for: Lymphadenopathy, Thyromegaly - Respiratory Exam Respiratory Exam: Clear to Auscultation Bilateral, Prolonged Expiratory Phase, N ORMAL BREATHING PATTERN. absent: Accessory Muscle Use, Chest Wall Tenderness, Decreased Breath Sounds, Rales, Rhonchi, Wheezes - Cardiovascular Exam Cardiovascular Exam: REGULAR RHYTHM, RRR, +S1, +S2. absent: Bradycardia, Tachycardia, Irregular Rhythm, JVD, +S4 - GI/Abdominal Exam resolved abdominal distension (now soft and without tenderness on palpation/compression, less firm and less tender diffusely) No spider angiomata or caput medusa appreciated Normal bowel sounds - Extremities Exam Extremities exam: Appropriate ROM, significantly reduced pedal edema (down to trace in bilateral ankles to shins), Tenderness and stiffness of R ankle. Negative for: calf tenderness, pedal pulses present (unable to palpate pulses through pedal edema) - Back Exam Back exam: absent: CVA tenderness (L), CVA tenderness (R) - Neurological Exam Awake and alert, moving all extremities spontaneously and on command - Psychiatric Exam Psychiatric exam: Normal Affect, Normal Mood - Skin Skin Exam: Intact, Normal Color, waxy skin tone at bilateral LE from ankles to mid-thighs Assessment and Plan - Assessment and Plan (Free Text) Assessment: This is a 58 yo F with PMH of HTN, DM2, CVA x2 (first in 2005, date of 2nd unknown), CKD, and frequent cocaine and heroin abuse (snort/smoking, denies ever injecting) who presented to [facility] with complaints of progressively swelling bilateral LE x2-3 months, progressively worsening shortness of breath (exertional and intermittently at rest), and worsening abdominal swelling and pain x2 months. Nephro was consulted due to SUSANNAH over CVD vs progressively worsening renal function. For AVF and permacath today, Cr clearance of 13 so will need HD before AVF matures. Plan: 1) Bilateral LE and abdominal swelling, possible anasarca 2) Active tobacco, cocaine, and heroin abuse 3) HTN 4) DM2 5) Hx CVA x2 6) Worsening renal function SUSANNAH on CKD vs Progressive renal failure 7) Medication non-compliance 8) Left-sided facial numbness 9) Elevated uric acid, poss gout attack -Cr 2.6 on admission, today 3.2, 1.7-1.9 in 2018, 1.1-1.3 in 2017 Progressively worsening, unclear etiology; drug-induced (vasospasm from tnaa aaron vs hypoperfusing 2/2 heroin use), cardiorenal, DM nephropathy A1c 6.0, last was 6.1, so DM well controlled, but can still have DM nephropathy despite well-controlled DM Presentation strongly suggestive of CHF exacerbation, Echo 03/17 notable for EF 60% but moderate to severe LVH and severe Pulm HTN Renal bx: diabetic nephropathy changes, vascular disease, segmental glomerular sclerosis on a background of marked interstitial fibrosis Path + Cr clearance 13 suggests pending ESRD, highly unlikely any meaningful recovery of function would be obtained with medical management Start HD tomorrow -BP control improved, SBP 120's-150's in last 24 hrs, goal is 130's-140's Current regimen: Amlodipine 10mg, Coreg 25mg BID, Hydralazine 50mg TID (hold for SBP < 140), Lasix 40mg IV daily, metalazone 5mg daily Given current Cr and eGFR, would avoid CHARLINE/ARB -Cardio consulted, appreciate their recs -Pending AVF and permacath today, patient amenable to both -CT abd/pelvis findings concerning for possible adrenal adenomas, but workup for pheo/primary hyperaldo/subclinical Darrion all negative -Uric Acid 10, given right ankle pain and stiffness may be gout flare Patient now admitted to hx of gout Avoid acute urate lowering therapy, as can provoke/worsen flare Colchicine contraindicated due to B-bc, should improve with HD Patient reviewed and discussed with attending, Dr. Smith <Arvin Smith - Last Filed: 03/26/19 06:55> Objective - Vital Signs/Intake and Output Vital Signs (last 24 hours): Temp Pulse Resp BP Pulse Ox 98.2 F 80 20 146/75 97 03/26/19 05:22 03/26/19 05:22 03/26/19 05:22 03/26/19 05:22 03/26/19 05:22 Intake and Output: 03/25/19 03/26/19 18:59 06:59 Intake Total 650 400 Output Total 150 Balance 650 250 - Medications Medications: Current Medications Acetaminophen (Tylenol 325mg Tab) 650 mg PO Q6 PRN PRN Reason: Pain, moderate (4-7) Last Admin: 03/26/19 02:49 Dose: 650 mg Albuterol/Ipratropium (Duoneb 3 Mg/0.5 Mg (3 Ml) Ud) 3 ml INH RQ6 PRN PRN Reason: Shortness of Breath Amlodipine Besylate (Norvasc) 10 mg PO Q24H [facility] Aspirin (Ecotrin) 81 mg PO DAILY [facility] Last Admin: 03/24/19 10:47 Dose: 81 mg Carvedilol (Coreg) 12.5 mg PO BID [facility] Last Admin: 03/25/19 18:56 Dose: 12.5 mg Dextrose (Dextrose 50% Inj) 0 ml IV STAT PRN; Protocol PRN Reason: Hypoglycemia Protocol Dextrose (Glutose 15) 0 gm PO ONCE PRN; Protocol PRN Reason: Hypoglycemia Protocol Docusate Sodium (Colace) 100 mg PO TID [facility] Last Admin: 03/25/19 22:45 Dose: 100 mg Ergocalciferol (Drisdol 50,000 Intl Units Cap) 1 cap PO Q7D [facility] Stop: 05/05/19 12:01 Last Admin: 03/24/19 15:19 Dose: 1 cap Folic Acid (Folic Acid) 1 mg PO DAILY [facility] Last Admin: 03/25/19 12:14 Dose: Not Given Furosemide (Lasix) 40 mg PO Q24H [facility] Gabapentin (Neurontin) 100 mg PO DAILY [facility] Glucagon (Glucagen Diagnostic Kit) 0 mg IM STAT PRN; Protocol PRN Reason: Hypoglycemia Protocol Heparin Sodium (Porcine) (Heparin) 5,000 units SC Q8 [facility] Last Admin: 03/26/19 06:21 Dose: Not Given Hydralazine HCl (Apresoline) 50 mg PO TID [facility] Last Admin: 03/25/19 17:56 Dose: 50 mg Dextrose (Dextrose 5% In Water 1000 Ml) 1,000 mls @ 0 mls/hr IV .Q0M PRN; Protocol PRN Reason: Hypoglycemia Protocol Insulin Human Regular (Novolin R) 0 unit SC ACHS [facility]; Protocol Last Admin: 03/25/19 22:49 Dose: Not Given Metolazone (Zaroxolyn) 5 mg PO QAM [facility] Last Admin: 03/25/19 10:00 Dose: Not Given Multivitamins (Hexavitamin) 1 tab PO DAILY [facility] Last Admin: 03/25/19 10:00 Dose: Not Given Nicotine (Nicoderm Cq) 1 patch TD DAILY [facility] Stop: 04/28/19 23:59 Last Admin: 03/25/19 10:00 Dose: Not Given Polyethylene Glycol (Miralax) 17 gm PO DAILY [facility] Last Admin: 03/25/19 10:00 Dose: Not Given Thiamine HCl (Vitamin B1 Tab) 100 mg PO DAILY [facility] Last Admin: 03/25/19 10:00 Dose: Not Given Trazodone HCl (Desyrel) 100 mg PO HS PRN PRN Reason: Insomnia Last Admin: 03/25/19 22:45 Dose: 100 mg - Labs Labs: 03/25/19 07:55 03/25/19 11:36 PT 12.3 SECONDS (9.7-12.2) H 03/25/19 07:55 INR 1.1 03/25/19 07:55 APTT 38.0 SECONDS (21-34) H 03/25/19 07:55 Assessment and Plan (1) SUSANNAH (acute kidney injury) Status: Acute (2) Hypertensive chronic kidney disease Status: Acute (3) CHF (congestive heart failure) Status: Acute (4) Proteinuria Status: Chronic Attending/Attestation - Attestation I have personally seen and examined this patient.: Yes I have fully participated in the care of the patient.: Yes I have reviewed all pertinent clinical information, including history, physical exam and plan: Yes Notes (Text): Patient seen and examined; I agree with the resident's note as above with the following additions/edits: 58 yo F w/ htn, dm, substance abuse, and progressive CKD, admitted with acute decompensated diastolic CHF/pulm htn and worsening renal failure; Underwent AVG placement (veins deemed unsuitable for AVF) and tunneled HD catheter in preparation to start HD tomorrow; s/p renal biopsy earlier this week showing diabetic kidney disease, vascular changes and segmental sclerosis with background of significant interstitial fibrosis; EM finding available today, showing diffuse foot process effacement which may be due to in part to ischemic injury (in the setting of cocaine abuse); Plan is to start HD as ESRD from tomorrow; discussed with case management who is working on outpatient HD setup; Hypertensive CKD, BP currently controlled; will decrease coreg and start losartan (to help preserve residual renal function); CHF status currently stable; switched by primary team to PO lasix 40 mg daily; continue metolazone 5 mg daily; will manage volume status with UF on HD;
--- NOTE | 2019-03-25 07:06 | CP.PCM.PN ---
<Alivia Vo - Last Filed: 03/25/19 17:02> Subjective - Date & Time of Evaluation Date of Evaluation: 03/25/19 Time of Evaluation: 07:05 - Subjective Subjective: PGY-1 Alivia Vo D.O. Medicine progress note for Dr. Amor Tirado's service: Patient was seen and examined this morning. Patient is complaining of right foot pain and left leg pain. She says that she was on gabapentin at home for diabetic neuropathy. Patient said she had a BM. Patient has been refusing medications, so it was reiterated to her that it is important to monitor her on these meds so we know how to properly adjust them. Objective - Vital Signs/Intake and Output Vital Signs (last 24 hours): Temp Pulse Resp BP Pulse Ox 98.3 F 82 20 121/65 97 03/23/19 23:20 03/24/19 23:35 03/23/19 23:20 03/24/19 23:20 03/23/19 15:45 - Medications Medications: Current Medications Acetaminophen (Tylenol 325mg Tab) 650 mg PO Q6 PRN PRN Reason: Pain, moderate (4-7) Last Admin: 03/25/19 06:23 Dose: 650 mg Albuterol/Ipratropium (Duoneb 3 Mg/0.5 Mg (3 Ml) Ud) 3 ml INH RQ6 PRN PRN Reason: Shortness of Breath Amlodipine Besylate (Norvasc) 10 mg PO DAILY [facility] Last Admin: 03/24/19 10:43 Dose: 10 mg Aspirin (Ecotrin) 81 mg PO DAILY [facility] Last Admin: 03/24/19 10:47 Dose: 81 mg Carvedilol (Coreg) 25 mg PO BID [facility] Last Admin: 03/24/19 19:00 Dose: Not Given Dextrose (Dextrose 50% Inj) 0 ml IV STAT PRN; Protocol PRN Reason: Hypoglycemia Protocol Dextrose (Glutose 15) 0 gm PO ONCE PRN; Protocol PRN Reason: Hypoglycemia Protocol Docusate Sodium (Colace) 100 mg PO TID [facility] Last Admin: 03/24/19 19:00 Dose: Not Given Ergocalciferol (Drisdol 50,000 Intl Units Cap) 1 cap PO Q7D [facility] Stop: 05/05/19 12:01 Last Admin: 03/24/19 15:19 Dose: 1 cap Folic Acid (Folic Acid) 1 mg PO DAILY [facility] Last Admin: 03/24/19 10:47 Dose: 1 mg Furosemide (Lasix) 40 mg IVP Q24H [facility] Last Admin: 03/24/19 09:04 Dose: Not Given Furosemide (Lasix) 40 mg IVP Q24H [facility] Glucagon (Glucagen Diagnostic Kit) 0 mg IM STAT PRN; Protocol PRN Reason: Hypoglycemia Protocol Heparin Sodium (Porcine) (Heparin) 5,000 units SC Q8 ENRIQUE Last Admin: 03/23/19 22:44 Dose: Not Given Hydralazine HCl (Apresoline) 50 mg PO TID [facility] Last Admin: 03/24/19 19:00 Dose: Not Given Dextrose (Dextrose 5% In Water 1000 Ml) 1,000 mls @ 0 mls/hr IV .Q0M PRN; Protocol PRN Reason: Hypoglycemia Protocol Insulin Human Regular (Novolin R) 0 unit SC ACHS [facility]; Protocol Last Admin: 03/24/19 21:26 Dose: Not Given Metolazone (Zaroxolyn) 5 mg PO Q24H ENRIQUE Last Admin: 03/24/19 09:00 Dose: 5 mg Multivitamins (Hexavitamin) 1 tab PO DAILY [facility] Last Admin: 03/24/19 10:49 Dose: 1 tab Nicotine (Nicoderm Cq) 1 patch TD DAILY [facility] Stop: 04/28/19 23:59 Last Admin: 03/24/19 10:54 Dose: 1 patch Polyethylene Glycol (Miralax) 17 gm PO DAILY [facility] Last Admin: 03/24/19 11:03 Dose: Not Given Sennosides (Senokot Tab) 8.6 mg PO DAILY [facility] Last Admin: 03/24/19 10:41 Dose: 8.6 mg Thiamine HCl (Vitamin B1 Tab) 100 mg PO DAILY [facility] Last Admin: 03/24/19 10:47 Dose: 100 mg Trazodone HCl (Desyrel) 100 mg PO HS PRN PRN Reason: Insomnia Last Admin: 03/24/19 22:27 Dose: 100 mg - Labs Labs: 03/24/19 20:12 03/24/19 20:30 PT 12.1 SECONDS (9.7-12.2) 03/24/19 20:12 INR 1.1 03/24/19 20:12 APTT 35.0 SECONDS (21-34) H 03/24/19 20:12 - Additional Findings Additional findings: - Constitutional Appears: Non-toxic, No Acute Distress - Head Exam Head Exam: ATRAUMATIC, NORMAL INSPECTION - Eye Exam Additional comments: R eye fixed laterally - ENT Exam ENT Exam: Mucous Membranes Moist - Neck Exam Neck Exam: Normal Inspection - Respiratory Exam Respiratory Exam: Clear to Auscultation Bilateral, NORMAL BREATHING PATTERN. absent: Respiratory Distress - Cardiovascular Exam Cardiovascular Exam: RRR, +S1, +S2 - GI/Abdominal Exam GI & Abdominal Exam: Soft. absent: Distended, Tenderness - Extremities Exam Extremities Exam: Normal Inspection, Tenderness. absent: Pedal Edema Additional comments: RUE midline R foot- tender to palpitation, no edema, erythema, or lesion - Neurological Exam Neurological Exam: Alert, Awake, Normal Gait, Oriented x3 - Psychiatric Exam Psychiatric exam: Normal Affect, Normal Mood - Skin Skin Exam: Dry, Normal Color, Warm Assessment and Plan - Assessment and Plan (Free Text) Assessment: Patient is a 58 yo female with CKD, HTN, T2DM, and polysubstance use (heroin and cocaine) who presented with leg swelling and abdominal pain. Patient found to have worsening kidney disease and severe constipation. Echo notable for severe pulm HTN. Patient also Patient had L renal biopsy on 03/22- diabetic nephropathy. Patient to go for AVF and permacath placement today. Will start HD tomorrow 03/26. 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, 23% global glomerulosclerosis, moderate interstitial fi brosis and moderate arteriosclerosis - Start HD tomorrow Monday 03/26 - Vein mapping done on 03/20 - L AVF and R permacath placed 03/25 - Apply ice pack to LUE if pain - Tylenol 650 mg PO Q6H PRN - Avoid NSAIDs - Metolazone 5 mg PO daily - [place]ph[place] [place] avoid ACEI/ARB, start HD - Vascular surgery consulted ([facility])- permacath and AVF Hypertension, chronic, poorly controlled- SBP goal 130-140 - Echo: mod-severe concentric LVH - Vitals Q6H - Lasix 40 mg PO daily (8am) - Norvasc 10 mg PO daily (8am) - Hydralazine 50 mg PO TID (10am, 2pm, 8pm) - Coreg 25 mg PO BID (10am, 6pm) - Metolazone 5 mg PO daily (10am) - Hold each med if SBP <140 Acute decompensated diastolic congestive heart failure (HFpEF), improving - CXR: cardiomegaly, L pleural effusion - EKG: NSR, PVCs - LE Dopplers: no DVT - Echo: EF 62%, mod-severe LVH, severe pulm HTN, mod TR - CT A/P: Mild CHF suspected. [id number] left and mild right pleural effusions identified. - BNP 31,300--> 12,300 - Trop negative - Monitor on telemetry - Fluid restriction 1500 mL - Strict Is & Os - 03/24: -695 mL - Daily weights- 75 kg--> 64 kg - Duoneb Q6H PRN - Lasix 40 mg PO daily - Coreg 25 mg PO BID - Metolazone 5 mg PO daily - Cardiology consulted ([facility]) Constipation, acute on chronic, improving - CT A/P: Prominent fecal loading is seen throughout the ascending through transverse large-bowel segments and is otherwise mild without gross mural thickening evident. - Miralax 17 g PO daily - Colace 100 mg PO TID - Lactulose x1 on 03/19, x1 on 03/22 - Mineral oil enema x1 on 03/19, x1 on 03/20 Vitamin D deficiency- suspect 2/2 kidney disease - 25-OH vit D <12.5 - Vitamin D 50,000 IU Q1WK on 03/20 (Friday) x 8 doses H/o type 2 diabetes mellitus with diabetic neuropathy, chronic - A1c 6 - Accuchecks ACHS - Range 130-150 - Hypoglycemia protocol - ISS low - ASA 81 mg PO daily - Start Gabapentin 100 mg PO daily (max 300 mg for renal dose) - Podiatry consulted ([facility])- diabetic foot exam and nail care Hepatis steatosis, chronic - HIV and hepatitis negative - LFTs wnl - Albumin low - Abd US: mild hepatomegaly. Diffuse increased echogenicity in the liver may reflect hepatic steatosis. Nodular contour of the liver could represent cirrhosis. Medical renal disease. Gallbladder is contracted but no cholelithiasis. Mild diffuse dilation of the common bile duct without evidence for choledocholithiasis. - CT A/P: Hepatomegaly noted without focal mass or gross intrahepatic biliary duct dilatation. Mild anasarca. - Hepatobiliary surgeon consulted ([facility]) Polysubstance use disorder, chronic- heroin (intranasal), cocaine, tobacco, alcohol - UDS positive for cocaine and opiates - BAL <10 - HIV and hepatitis negative - CIWA (0) - Trazodone 100 mg PO QHS PRN - Completed Methadone taper - Nicoderm daily - Multivitamin daily - Thiamine 100 mg PO daily - Folate 1 mg PO daily - Psychiatry consulted ([facility]) Adrenal mass/hyperplasia, chronic - CT A/P: Benign right adrenal adenoma suspected. Left adrenal hyperplasia identified and may coexistent right adrenal gland. - 1 mg Dexamethasone suppression test- AM cortisol low (4.3) - Plasma metaneprhine wnl - Plasma normetanephrine elev (377) Ppx: VTE: SCDs contraindicated, Heparin 5000 units SC Q8H GI: Pepcid 20 mg PO daily Diet: Heart healthy, renal, 2g Na Code status: full code Dispo: Starting dialysis tomorrow Monday 03/26. Pending outpatient HD placement. Case was discussed with attending, Dr. Amor Tirado. <Pardeep Tirado - Last Filed: 03/26/19 18:59> Objective - Vital Signs/Intake and Output Vital Signs (last 24 hours): Temp Pulse Resp BP Pulse Ox 97 F L 121 H 18 151/89 H 96 03/26/19 15:02 03/26/19 16:00 03/26/19 15:02 03/26/19 17:46 03/26/19 15:02 Intake and Output: 03/26/19 03/26/19 06:59 18:59 Intake Total 400 300 Output Total 150 Balance 250 300 - Medications Medications: Current Medications Acetaminophen (Tylenol 325mg Tab) 650 mg PO Q6 PRN PRN Reason: Pain, moderate (4-7) Last Admin: 03/26/19 09:50 Dose: 325 mg Albuterol/Ipratropium (Duoneb 3 Mg/0.5 Mg (3 Ml) Ud) 3 ml INH RQ6 PRN PRN Reason: Shortness of Breath Amlodipine Besylate (Norvasc) 10 mg PO Q24H [facility] Last Admin: 03/26/19 08:10 Dose: 10 mg Apixaban (Eliquis) 5 mg PO BID [facility] Aspirin (Ecotrin) 81 mg PO DAILY [facility] Last Admin: 03/26/19 10:19 Dose: 81 mg Carvedilol (Coreg) 12.5 mg PO BID [facility] Last Admin: 03/26/19 17:46 Dose: 12.5 mg Dextrose (Dextrose 50% Inj) 0 ml IV STAT PRN; Protocol PRN Reason: Hypoglycemia Protocol Dextrose (Glutose 15) 0 gm PO ONCE PRN; Protocol PRN Reason: Hypoglycemia Protocol Docusate Sodium (Colace) 100 mg PO TID [facility] Last Admin: 03/26/19 17:49 Dose: 100 mg Ergocalciferol (Drisdol 50,000 Intl Units Cap) 1 cap PO Q7D [facility] Stop: 05/05/19 12:01 Last Admin: 03/24/19 15:19 Dose: 1 cap Folic Acid (Folic Acid) 1 mg PO DAILY [facility] Last Admin: 03/26/19 10:19 Dose: 1 mg Furosemide (Lasix) 40 mg PO Q24H [facility] Last Admin: 03/26/19 08:09 Dose: 40 mg Gabapentin (Neurontin) 100 mg PO DAILY [facility] Last Admin: 03/26/19 10:19 Dose: 100 mg Glucagon (Glucagen Diagnostic Kit) 0 mg IM STAT PRN; Protocol PRN Reason: Hypoglycemia Protocol Hydralazine HCl (Apresoline) 25 mg PO TID [facility] Last Admin: 03/26/19 17:48 Dose: 25 mg Dextrose (Dextrose 5% In Water 1000 Ml) 1,000 mls @ 0 mls/hr IV .Q0M PRN; Protocol PRN Reason: Hypoglycemia Protocol Insulin Human Regular (Novolin R) 0 unit SC ACHS [facility]; Protocol Last Admin: 03/26/19 17:30 Dose: Not Given Losartan Potassium (Cozaar) 25 mg PO DAILY [facility] Metolazone (Zaroxolyn) 5 mg PO QAM [facility] Last Admin: 03/26/19 10:19 Dose: 5 mg Multivitamins (Hexavitamin) 1 tab PO DAILY [facility] Last Admin: 03/26/19 10:19 Dose: 1 tab Nicotine (Nicoderm Cq) 1 patch TD DAILY [facility] Stop: 04/28/19 23:59 Last Admin: 03/26/19 10:18 Dose: 1 patch Polyethylene Glycol (Miralax) 17 gm PO DAILY [facility] Last Admin: 03/25/19 10:00 Dose: Not Given Thiamine HCl (Vitamin B1 Tab) 100 mg PO DAILY [facility] Last Admin: 03/26/19 10:20 Dose: 100 mg Trazodone HCl (Desyrel) 100 mg PO HS PRN PRN Reason: Insomnia Last Admin: 03/25/19 22:45 Dose: 100 mg - Labs Labs: 03/25/19 07:55 03/25/19 11:36 PT 12.3 SECONDS (9.7-12.2) H 03/25/19 07:55 INR 1.1 03/25/19 07:55 APTT 38.0 SECONDS (21-34) H 03/25/19 07:55 Attending/Attestation - Attestation I have personally seen and examined this patient.: Yes I have fully participated in the care of the patient.: Yes I have reviewed all pertinent clinical information, including history, physical exam and plan: Yes Notes (Text): 03/26/19 18:59 This is a late entry. Patient was seen and examined with resident Dr. Vo. Care of this patient was gone over in detail with resident Dr. Vo. Pardeep Tirado D.O.
[2019-03-25 08:04] LABS: BASO # 0.1 K/uL (0.0-0.2); BASO % 1.3 % (0.0-2.0); EOS # 0.3 K/uL (0.0-0.7); EOS % 4.4 % (0.0-4.0); HEMOGLOBIN 13.3 g/dL (11.0-16.0); LYMPH # 1.2 K/uL (1.0-4.3); LYMPH % 18.5 % (20.0-40.0); MEAN CELL VOLUME 94.1 fL (81.0-99.0); MEAN CORPUSCULAR HEMOGLOBIN 30.7 pg (27.0-31.0); MEAN CORPUSCULAR HGB CONC 32.6 g/dL (33.0-37.0); MEAN PLATELET VOLUME 10.6 fL (7.2-11.7); MONO # 0.7 K/uL (0.0-0.8); MONO % 11.2 % (0.0-10.0); NEUT # 4.3 K/uL (1.8-7.0); NEUT % 64.6 % (50.0-75.0); RBC 4.32 Mil/uL (3.80-5.20); RED CELL DISTRIBUTION WIDTH 15.3 % (11.5-14.5); WHITE BLOOD COUNT 6.6 K/uL (4.8-10.8)
[2019-03-25 08:08] LABS: INR 1.1; PROTHROMBIN TIME 12.3 SECONDS (9.7-12.2)
[2019-03-25 08:14] LABS: ALB/GLOB RATIO 1.2 (1.0-2.1); ALBUMIN 3.5 g/dL (3.5-5.0); CALCIUM 8.8 mg/dl (8.6-10.4)
[2019-03-25] MEDS: (Novolin R) Insulin Human Regular 100 units/ml vial SC SCH ×4 (08:28→22:49)
[2019-03-25] MEDS: metOLazone 5 MG TAB PO SCH ×2 (08:50→10:00)
[2019-03-25] MEDS ORDERED: HEPARIN-NS 5,000 UNITS/500 ML 5,000 UNIT/500 ML BAG IV ONE (09:07)
[2019-03-25] MEDS ORDERED: ceFAZolin 1 gm in NS 1 GM/100 ML BAG IVPB ONE (09:07)
[2019-03-25] MEDS ORDERED: Propofol 10 mg/ml Inj (20 ML) ONE (09:08)
[2019-03-25] MEDS ORDERED: Midazolam 2 MG/2 ML VIAL ONE (09:08)
[2019-03-25] MEDS: POLYETHYLENE GLYCOL 3350 17 GM/Dose PACKET PO SCH (10:00)
[2019-03-25] MEDS: Multiple Vitamins Tab PO SCH (10:00)
[2019-03-25] MEDS ORDERED: HYDROmorphone 0.5 mg/0.5 ml ISec IVP PRN (11:26)
[2019-03-25 12:19] LABS: URINE CREATININE 47.1 mg/dL
--- NOTE | 2019-03-25 13:08 | PCM.SURG1 ---
Surgeon's Initial Post Op Note - Surgeon's Notes Surgeon: Sincere Alvarez MD Casting Operator: Norma Ramirez, PGY-2 Type of Anesthesia: General Endo Pre-Operative Diagnosis: End stage renal disease requiring dialysis Operative Findings: see op report Post-Operative Diagnosis: End stage renal disease requiring dialysis Operation Performed: RIJ tunneled permacath placement, Left upper extremity AV Bovine shunt Specimen/Specimens Removed: None Estimated Blood Loss: EBL {In ML}: 50 Blood Products Given: N/A Drains Used: No Drains Post-Op Condition: Good Date of Surgery/Procedure: 03/25/19 Time of Surgery/Procedure: 13:07
--- NOTE | 2019-03-25 14:22 | RAD ---
Chest x-ray single frontal view HISTORY: PermCath placement. Comparison: 03/16/2019 Findings: Right central venous catheter tip extending into the cavoatrial junction. Moderate venous congestion. Linear atelectatic changes in the left mid lung zone. Additional linear consolidative changes in the right midlung zone. Patchy consolidative changes at the right lung base. Top normal heart size. Degenerative changes in the spine and shoulders. Impression: Right central venous catheter tip extending into the cavoatrial junction. Moderate venous congestion. Linear atelectatic changes in the left mid lung zone. Additional linear consolidative changes in the right midlung zone. Patchy consolidative changes at the right lung base.
--- NOTE | 2019-03-25 14:49 | RAD ---
Date of service: 03/25/2019 PROCEDURE: Intraoperative Fluoroscopy. HISTORY: RENAL FAILURE FINDINGS: Fluoroscopic assistance was provided for right-sided PermCath placement. Please refer to the operative report from [facility].
--- NOTE | 2019-03-25 20:10 | OP ---
PROCEDURE DATE: 03/25/2019 PREOPERATIVE DIAGNOSIS: Renal failure. POSTOPERATIVE DIAGNOSIS: Renal failure. PROCEDURE CARRIED OUT: Placement of Perm-A-Cath right jugular vein with C-arm fluoroscopy, ultrasound-guided puncture, and micropuncture technique, AV shunt, left upper arm, brachial /placed the axilla with a Bovine graft. FINDINGS: The patient is a 58-year-old woman with renal insufficiency, requires dialysis. Perm-A-Cath was placed uneventfully via the jugular vein using micropuncture technique, originated on the right chest wall going through right jugular vein and terminating at the superior vena cava. Subsequently, then explored the left arm. Preoperative vein mapping did not reveal any good vein. Subsequently, we did our own vein mapping and did not find out a good cephalic vein and had a basilic vein because it was base of graft due to the patient's small size and calcified vessels at the elbow area, we placed an upper arm loop. Based on the proximal brachial artery with the intention of avoiding steal. At the end of the procedure, we had a palpable pulse of the wrist and good flow through the shunt. DESCRIPTION OF PROCEDURE: The patient was given general anesthesia, and intravenous antibiotics. Venodyne boots were applied. Right jugular catheter was placed. Then, we dissected out the brachial vein, the basilic vein in the axilla. We then created a loop in the upper portion, gave heparin, carried out standard anastomosis in the usual fashion with loop magnification, heparin anticoagulation. At the end of this procedure, we had palpable pulses in wrist and good Doppler signals. Wounds were closed. The dressings were applied. Blood loss was less than 100 mL. OPERATION CARRIED OUT: 1. Perm-A-Cath, right jugular vein. 2. Brachial AV bovine graft, left upper arm. Sincere Alvarez Jr., MD NE
--- NOTE | 2019-03-26 07:14 | CP.PCM.PN ---
<Alivia Vo - Last Filed: 03/26/19 13:07> Subjective - Date & Time of Evaluation Date of Evaluation: 03/26/19 Time of Evaluation: 07:13 - Subjective Subjective: PGY-1 Alivia Vo D.O. Medicine progress note for Dr. Amor Tirado's service: Patient was seen and examined this morning. She is sitting up in bed eating paris akfast. She says that she is tired. She is ready for her first cessation of dialysis today but is nervous. She still complains of leg pain. She also says she has not had a good BM in 2 days. Stressed to patient the importance of taking all of her medications. Patient acknowledged understanding. Objective - Vital Signs/Intake and Output Vital Signs (last 24 hours): Temp Pulse Resp BP Pulse Ox 98.2 F 80 20 146/75 97 03/26/19 05:22 03/26/19 05:22 03/26/19 05:22 03/26/19 05:22 03/26/19 05:22 Intake and Output: 03/26/19 03/26/19 06:59 18:59 Intake Total 400 Output Total 150 Balance 250 - Medications Medications: Current Medications Acetaminophen (Tylenol 325mg Tab) 650 mg PO Q6 PRN PRN Reason: Pain, moderate (4-7) Last Admin: 03/26/19 02:49 Dose: 650 mg Albuterol/Ipratropium (Duoneb 3 Mg/0.5 Mg (3 Ml) Ud) 3 ml INH RQ6 PRN PRN Reason: Shortness of Breath Amlodipine Besylate (Norvasc) 10 mg PO Q24H [facility] Aspirin (Ecotrin) 81 mg PO DAILY [facility] Last Admin: 03/24/19 10:47 Dose: 81 mg Carvedilol (Coreg) 12.5 mg PO BID [facility] Last Admin: 03/25/19 18:56 Dose: 12.5 mg Dextrose (Dextrose 50% Inj) 0 ml IV STAT PRN; Protocol PRN Reason: Hypoglycemia Protocol Dextrose (Glutose 15) 0 gm PO ONCE PRN; Protocol PRN Reason: Hypoglycemia Protocol Docusate Sodium (Colace) 100 mg PO TID [facility] Last Admin: 03/25/19 22:45 Dose: 100 mg Ergocalciferol (Drisdol 50,000 Intl Units Cap) 1 cap PO Q7D [facility] Stop: 05/05/19 12:01 Last Admin: 03/24/19 15:19 Dose: 1 cap Folic Acid (Folic Acid) 1 mg PO DAILY [facility] Last Admin: 03/25/19 12:14 Dose: Not Given Furosemide (Lasix) 40 mg PO Q24H [facility] Gabapentin (Neurontin) 100 mg PO DAILY [facility] Glucagon (Glucagen Diagnostic Kit) 0 mg IM STAT PRN; Protocol PRN Reason: Hypoglycemia Protocol Heparin Sodium (Porcine) (Heparin) 5,000 units SC Q8 [facility] Last Admin: 03/26/19 06:21 Dose: Not Given Hydralazine HCl (Apresoline) 50 mg PO TID [facility] Last Admin: 03/25/19 17:56 Dose: 50 mg Dextrose (Dextrose 5% In Water 1000 Ml) 1,000 mls @ 0 mls/hr IV .Q0M PRN; Protocol PRN Reason: Hypoglycemia Protocol Insulin Human Regular (Novolin R) 0 unit SC ACHS [facility]; Protocol Last Admin: 03/25/19 22:49 Dose: Not Given Metolazone (Zaroxolyn) 5 mg PO QAM [facility] Last Admin: 03/25/19 10:00 Dose: Not Given Multivitamins (Hexavitamin) 1 tab PO DAILY [facility] Last Admin: 03/25/19 10:00 Dose: Not Given Nicotine (Nicoderm Cq) 1 patch TD DAILY [facility] Stop: 04/28/19 23:59 Last Admin: 03/25/19 10:00 Dose: Not Given Polyethylene Glycol (Miralax) 17 gm PO DAILY [facility] Last Admin: 03/25/19 10:00 Dose: Not Given Thiamine HCl (Vitamin B1 Tab) 100 mg PO DAILY [facility] Last Admin: 03/25/19 10:00 Dose: Not Given Trazodone HCl (Desyrel) 100 mg PO HS PRN PRN Reason: Insomnia Last Admin: 03/25/19 22:45 Dose: 100 mg - Labs Labs: 03/25/19 07:55 03/25/19 11:36 PT 12.3 SECONDS (9.7-12.2) H 03/25/19 07:55 INR 1.1 03/25/19 07:55 APTT 38.0 SECONDS (21-34) H 03/25/19 07:55 - Additional Findings Additional findings: - Constitutional Appears: Non-toxic, No Acute Distress - Head Exam Head Exam: ATRAUMATIC, NORMAL INSPECTION - Eye Exam Additional comments: R eye fixed laterally - ENT Exam ENT Exam: Mucous Membranes Moist - Neck Exam Neck Exam: Normal Inspection - Respiratory Exam Respiratory Exam: Clear to Auscultation Bilateral, NORMAL BREATHING PATTERN. absent: Respiratory Distress - Cardiovascular Exam Cardiovascular Exam: RRR, +S1, +S2 - GI/Abdominal Exam GI & Abdominal Exam: Soft. absent: Distended, Tenderness - Extremities Exam Extremities Exam: Normal Inspection, Tenderness. absent: Pedal Edema Additional comments: RUE midline R IJ tunneled Permacath with clean dry dressing LUE AV shunt with palpable thrill, palpable radial pulses - Neurological Exam Neurological Exam: Alert, Awake, Normal Gait, Oriented x3 - Psychiatric Exam Psychiatric exam: Normal Affect, Normal Mood - Skin Skin Exam: Dry, Normal Color, Warm Assessment and Plan - Assessment and Plan (Free Text) Assessment: Patient is a 58 yo female with CKD, HTN, T2DM, and polysubstance use (heroin and cocaine) who presented with leg swelling and abdominal pain. Patient found to have worsening kidney disease and severe constipation. Echo notable for severe pulm HTN. Patient also Patient had L renal biopsy on 03/22- diabetic nephropathy. Patient had AV graft and permacath placed 03/25. Will start HD today 03/26. 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, 23% global glomerulosclerosis, moderate interstitial fibrosis and moderate arteriosclerosis; diffuse foot process effacement which may be due to in part to ischemic injury (in the setting of cocaine abuse) - Vein mapping done on 03/20 - L AV graft and R permacath placed 03/25 - Start HD today Monday 03/26 - Apply ice pack to LUE if pain - Tylenol 650 mg PO Q6H PRN - Avoid NSAIDs - Metolazone 5 mg PO daily - Nephrology consulted ([place]) - Vascular surgery consulted ([place])- permacath and AVF Hypertension, chronic, poorly controlled, improving- SBP goal 130-140 - Echo: mod-severe concentric LVH - Vitals Q6H - Lasix 40 mg PO daily (8am) - Norvasc 10 mg PO daily (8am) - Hydralazine 50 mg PO TID (10am, 2pm, 8pm) - Decrease Coreg to 12.5 mg PO BID (10am, 6pm) - Metolazone 5 mg PO daily (10am) - Hold each med if SBP <140 Atrial flutter, acute, resolved - Patient with HR 140s briefly on 03/25, telemetry shows NSR with intermittent runs of Aflutter - Continue Coreg 12.5 mg PO BID - Start Eliquis 5 mg PO BID tomorrow 03/27 - Cardiology consulted ([facility])- rec Eliquis, Metoprolol Acute decompensated diastolic congestive heart failure (HFpEF), improving - CXR: cardiomegaly, L pleural effusion - EKG: NSR, PVCs - LE Dopplers: no DVT - Echo: EF 62%, mod-severe LVH, severe pulm HTN, mod TR - CT A/P: Mild CHF suspected. [id number] left and mild right pleural effusions identified. - BNP 31,300--> 12,300 - Trop negative - Monitor on telemetry - Fluid restriction 1500 mL - Strict Is & Os - 03/25: +900 mL - Daily weights- 75 kg--> 65 kg - Duoneb Q6H PRN - Lasix 40 mg PO daily (8am) - Decrease Coreg to 12.5 mg PO BID (10am, 6pm) - Metolazone 5 mg PO daily (10am) - Cardiology consulted ([place]) Constipation, acute on chronic, improving - CT A/P: Prominent fecal loading is seen throughout the ascending through transverse large-bowel segments and is otherwise mild without gross mural thickening evident. - Miralax 17 g PO daily - Colace 100 mg PO TID - Lactulose x1 on 03/19, x1 on 03/22 - Mineral oil enema x1 on 03/19, x1 on 03/20 - Encouraged patient to walk 10 laps around unit every 2 hours Vitamin D deficiency- suspect 2/2 kidney disease - 25-OH vit D <12.5 - Vitamin D 50,000 IU Q1WK on 03/20 (Friday) x 8 doses H/o type 2 diabetes mellitus with diabetic neuropathy, chronic - A1c 6 - Accuchecks ACHS - Range 120-180 - Hypoglycemia protocol - ISS low - ASA 81 mg PO daily - Gabapentin 100 mg PO daily (max 300 mg for renal dose) - Podiatry consulted ([place])- diabetic foot exam and nail care Hepatic steatosis, chronic - HIV and hepatitis negative - LFTs wnl - Albumin low - Abd US: mild hepatomegaly. Diffuse increased echogenicity in the liver may reflect hepatic steatosis. Nodular contour of the liver could represent cirrhosis. Medical renal disease. Gallbladder is contracted but no cholelithiasis. Mild diffuse dilation of the common bile duct without evidence for choledocholithiasis. - CT A/P: Hepatomegaly noted without focal mass or gross intrahepatic biliary duct dilatation. Mild anasarca. - Hepatobiliary surgeon consulted ([place]) Polysubstance use disorder, chronic- heroin (intranasal), cocaine, tobacco, alcohol - UDS positive for cocaine and opiates - BAL <10 - HIV and hepatitis negative - CIWA (0) - Completed Methadone taper - Nicoderm daily - Multivitamin daily - Thiamine 100 mg PO daily - Folate 1 mg PO daily - Trazodone 100 mg PO QHS PRN - Psychiatry consulted ([place]) Adrenal mass/hyperplasia, chronic - CT A/P: Benign right adrenal adenoma suspected. Left adrenal hyperplasia identified and may coexistent right adrenal gland. - 1 mg Dexamethasone suppression test- AM cortisol low (4.3) - Plasma metaneprhine wnl - Plasma normetanephrine elev (377) Ppx: VTE: SCDs contraindicated, Eliquis GI: Pepcid 20 mg PO daily Diet: Heart healthy, renal, 2g Na Code status: full code Dispo: Starting dialysis today Monday 03/26. Pending outpatient HD placement. Case was discussed with attending, Dr. Amor Tirado. <Pardeep Tirado - Last Filed: 03/26/19 18:58> Objective - Vital Signs/Intake and Output Vital Signs (last 24 hours): Temp Pulse Resp BP Pulse Ox 97 F L 121 H 18 151/89 H 96 03/26/19 15:02 03/26/19 16:00 03/26/19 15:02 03/26/19 17:46 03/26/19 15:02 Intake and Output: 03/26/19 03/26/19 06:59 18:59 Intake Total 400 300 Output Total 150 Balance 250 300 - Medications Medications: Current Medications Acetaminophen (Tylenol 325mg Tab) 650 mg PO Q6 PRN PRN Reason: Pain, moderate (4-7) Last Admin: 03/26/19 09:50 Dose: 325 mg Albuterol/Ipratropium (Duoneb 3 Mg/0.5 Mg (3 Ml) Ud) 3 ml INH RQ6 PRN PRN Reason: Shortness of Breath Amlodipine Besylate (Norvasc) 10 mg PO Q24H [facility] Last Admin: 03/26/19 08:10 Dose: 10 mg Apixaban (Eliquis) 5 mg PO BID [facility] Aspirin (Ecotrin) 81 mg PO DAILY [facility] Last Admin: 03/26/19 10:19 Dose: 81 mg Carvedilol (Coreg) 12.5 mg PO BID [facility] Last Admin: 03/26/19 17:46 Dose: 12.5 mg Dextrose (Dextrose 50% Inj) 0 ml IV STAT PRN; Protocol PRN Reason: Hypoglycemia Protocol Dextrose (Glutose 15) 0 gm PO ONCE PRN; Protocol PRN Reason: Hypoglycemia Protocol Docusate Sodium (Colace) 100 mg PO TID [facility] Last Admin: 03/26/19 17:49 Dose: 100 mg Ergocalciferol (Drisdol 50,000 Intl Units Cap) 1 cap PO Q7D [facility] Stop: 05/05/19 12:01 Last Admin: 03/24/19 15:19 Dose: 1 cap Folic Acid (Folic Acid) 1 mg PO DAILY [facility] Last Admin: 03/26/19 10:19 Dose: 1 mg Furosemide (Lasix) 40 mg PO Q24H [facility] Last Admin: 03/26/19 08:09 Dose: 40 mg Gabapentin (Neurontin) 100 mg PO DAILY [facility] Last Admin: 03/26/19 10:19 Dose: 100 mg Glucagon (Glucagen Diagnostic Kit) 0 mg IM STAT PRN; Protocol PRN Reason: Hypoglycemia Protocol Hydralazine HCl (Apresoline) 25 mg PO TID [facility] Last Admin: 03/26/19 17:48 Dose: 25 mg Dextrose (Dextrose 5% In Water 1000 Ml) 1,000 mls @ 0 mls/hr IV .Q0M PRN; Protocol PRN Reason: Hypoglycemia Protocol Insulin Human Regular (Novolin R) 0 unit SC ACHS [facility]; Protocol Last Admin: 03/26/19 17:30 Dose: Not Given Losartan Potassium (Cozaar) 25 mg PO DAILY [facility] Metolazone (Zaroxolyn) 5 mg PO QAM [facility] Last Admin: 03/26/19 10:19 Dose: 5 mg Multivitamins (Hexavitamin) 1 tab PO DAILY [facility] Last Admin: 03/26/19 10:19 Dose: 1 tab Nicotine (Nicoderm Cq) 1 patch TD DAILY [facility] Stop: 04/28/19 23:59 Last Admin: 03/26/19 10:18 Dose: 1 patch Polyethylene Glycol (Miralax) 17 gm PO DAILY [facility] Last Admin: 03/25/19 10:00 Dose: Not Given Thiamine HCl (Vitamin B1 Tab) 100 mg PO DAILY [facility] Last Admin: 03/26/19 10:20 Dose: 100 mg Trazodone HCl (Desyrel) 100 mg PO HS PRN PRN Reason: Insomnia Last Admin: 03/25/19 22:45 Dose: 100 mg - Labs Labs: 03/25/19 07:55 03/25/19 11:36 PT 12.3 SECONDS (9.7-12.2) H 03/25/19 07:55 INR 1.1 03/25/19 07:55 APTT 38.0 SECONDS (21-34) H 03/25/19 07:55 Attending/Attestation - Attestation I have personally seen and examined this patient.: Yes I have fully participated in the care of the patient.: Yes I have reviewed all pertinent clinical information, including history, physical exam and plan: Yes Notes (Text): 03/26/19 18:58 This is a late entry. Patient was seen and examined with resident Dr. Vo. Care of this patient was gone over in detail with resident Dr. Vo. Pardeep Tirado D.O.
[2019-03-26] MEDS: (Novolin R) Insulin Human Regular 100 units/ml vial SC SCH ×4 (08:00→21:21)
--- NOTE | 2019-03-26 09:23 | CP.PCM.PN ---
Subjective - Date & Time of Evaluation Date of Evaluation: 03/26/19 Time of Evaluation: 09:18 - Subjective Subjective: Seen and examined Objective - Vital Signs/Intake and Output Vital Signs (last 24 hours): Temp Pulse Resp BP Pulse Ox 98.2 F 85 20 129/54 L 95 03/26/19 07:00 03/26/19 07:00 03/26/19 07:00 03/26/19 08:09 03/26/19 07:00 Intake and Output: 03/26/19 03/26/19 06:59 18:59 Intake Total 400 Output Total 150 Balance 250 - Medications Medications: Current Medications Acetaminophen (Tylenol 325mg Tab) 650 mg PO Q6 PRN PRN Reason: Pain, moderate (4-7) Last Admin: 03/26/19 02:49 Dose: 650 mg Albuterol/Ipratropium (Duoneb 3 Mg/0.5 Mg (3 Ml) Ud) 3 ml INH RQ6 PRN PRN Reason: Shortness of Breath Amlodipine Besylate (Norvasc) 10 mg PO Q24H [facility] Last Admin: 03/26/19 08:10 Dose: 10 mg Aspirin (Ecotrin) 81 mg PO DAILY [facility] Last Admin: 03/24/19 10:47 Dose: 81 mg Carvedilol (Coreg) 12.5 mg PO BID [facility] Last Admin: 03/25/19 18:56 Dose: 12.5 mg Dextrose (Dextrose 50% Inj) 0 ml IV STAT PRN; Protocol PRN Reason: Hypoglycemia Protocol Dextrose (Glutose 15) 0 gm PO ONCE PRN; Protocol PRN Reason: Hypoglycemia Protocol Docusate Sodium (Colace) 100 mg PO TID [facility] Last Admin: 03/25/19 22:45 Dose: 100 mg Ergocalciferol (Drisdol 50,000 Intl Units Cap) 1 cap PO Q7D [facility] Stop: 05/05/19 12:01 Last Admin: 03/24/19 15:19 Dose: 1 cap Folic Acid (Folic Acid) 1 mg PO DAILY [facility] Last Admin: 03/25/19 12:14 Dose: Not Given Furosemide (Lasix) 40 mg PO Q24H [facility] Last Admin: 03/26/19 08:09 Dose: 40 mg Gabapentin (Neurontin) 100 mg PO DAILY [facility] Glucagon (Glucagen Diagnostic Kit) 0 mg IM STAT PRN; Protocol PRN Reason: Hypoglycemia Protocol Heparin Sodium (Porcine) (Heparin) 5,000 units SC Q8 [facility] Last Admin: 03/26/19 06:21 Dose: Not Given Hydralazine HCl (Apresoline) 25 mg PO TID [facility] Dextrose (Dextrose 5% In Water 1000 Ml) 1,000 mls @ 0 mls/hr IV .Q0M PRN; Protocol PRN Reason: Hypoglycemia Protocol Insulin Human Regular (Novolin R) 0 unit SC ACHS [facility]; Protocol Last Admin: 03/26/19 08:00 Dose: Not Given Losartan Potassium (Cozaar) 25 mg PO DAILY [facility] Metolazone (Zaroxolyn) 5 mg PO QAM [facility] Last Admin: 03/25/19 10:00 Dose: Not Given Metoprolol Tartrate (Lopressor) 25 mg PO BID [facility] Multivitamins (Hexavitamin) 1 tab PO DAILY [facility] Last Admin: 03/25/19 10:00 Dose: Not Given Nicotine (Nicoderm Cq) 1 patch TD DAILY [facility] Stop: 04/28/19 23:59 Last Admin: 03/25/19 10:00 Dose: Not Given Polyethylene Glycol (Miralax) 17 gm PO DAILY [facility] Last Admin: 03/25/19 10:00 Dose: Not Given Thiamine HCl (Vitamin B1 Tab) 100 mg PO DAILY [facility] Last Admin: 03/25/19 10:00 Dose: Not Given Trazodone HCl (Desyrel) 100 mg PO HS PRN PRN Reason: Insomnia Last Admin: 03/25/19 22:45 Dose: 100 mg - Labs Labs: 03/25/19 07:55 03/25/19 11:36 PT 12.3 SECONDS (9.7-12.2) H 03/25/19 07:55 INR 1.1 03/25/19 07:55 APTT 38.0 SECONDS (21-34) H 03/25/19 07:55 - Constitutional Appears: Well, Non-toxic - Head Exam Head Exam: ATRAUMATIC - Eye Exam Pupil Exam: PERRL - Respiratory Exam Respiratory Exam: Clear to Ausculation Bilateral - Cardiovascular Exam Cardiovascular Exam: +S1, +S2. absent: JVD, Murmur - Neurological Exam Neurological Exam: Alert, CN II-XII Intact, Oriented x3 - Psychiatric Exam Psychiatric exam: Normal Affect, Normal Mood - Skin Skin Exam: Normal Color Assessment and Plan (1) Typical atrial flutter Status: Acute - Assessment and Plan (Free Text) Assessment: Developed palpitations last night, no chest pain No EKG available during rapid HR Telemetry as reviewed by me, shows atrial flutter Currently in SR, intermittent runs of Aflutter Start metoprolol tartrate 25 mg twice daily and advance as tolerated Patient with CHADS Vasc of at least 2 (sex and HTN) Will require life long anticoagulation Recommend starting apixaban 5 mg twice daily
--- NOTE | 2019-03-26 09:55 | CP.PCM.PN ---
Subjective - Date & Time of Evaluation Date of Evaluation: 03/26/19 Time of Evaluation: 09:52 - Subjective Subjective: SURGERY NOTE FOR DR. HUSSEIN 58F seen and examined at bedside. Patient doing well, seen walking around the floors. She denies any pain at the site of surgery and denies hand pain also. Denies numbness and tingling. Objective - Vital Signs/Intake and Output Vital Signs (last 24 hours): Temp Pulse Resp BP Pulse Ox 98.2 F 85 20 129/54 L 95 03/26/19 07:00 03/26/19 07:00 03/26/19 07:00 03/26/19 08:09 03/26/19 07:00 Intake and Output: 03/26/19 03/26/19 06:59 18:59 Intake Total 400 Output Total 150 Balance 250 - Medications Medications: Current Medications Acetaminophen (Tylenol 325mg Tab) 650 mg PO Q6 PRN PRN Reason: Pain, moderate (4-7) Last Admin: 03/26/19 09:50 Dose: 325 mg Albuterol/Ipratropium (Duoneb 3 Mg/0.5 Mg (3 Ml) Ud) 3 ml INH RQ6 PRN PRN Reason: Shortness of Breath Amlodipine Besylate (Norvasc) 10 mg PO Q24H [facility] Last Admin: 03/26/19 08:10 Dose: 10 mg Aspirin (Ecotrin) 81 mg PO DAILY [facility] Last Admin: 03/24/19 10:47 Dose: 81 mg Carvedilol (Coreg) 12.5 mg PO BID [facility] Last Admin: 03/25/19 18:56 Dose: 12.5 mg Dextrose (Dextrose 50% Inj) 0 ml IV STAT PRN; Protocol PRN Reason: Hypoglycemia Protocol Dextrose (Glutose 15) 0 gm PO ONCE PRN; Protocol PRN Reason: Hypoglycemia Protocol Docusate Sodium (Colace) 100 mg PO TID [facility] Last Admin: 03/25/19 22:45 Dose: 100 mg Ergocalciferol (Drisdol 50,000 Intl Units Cap) 1 cap PO Q7D [facility] Stop: 05/05/19 12:01 Last Admin: 03/24/19 15:19 Dose: 1 cap Folic Acid (Folic Acid) 1 mg PO DAILY [facility] Last Admin: 03/25/19 12:14 Dose: Not Given Furosemide (Lasix) 40 mg PO Q24H [facility] Last Admin: 03/26/19 08:09 Dose: 40 mg Gabapentin (Neurontin) 100 mg PO DAILY [facility] Glucagon (Glucagen Diagnostic Kit) 0 mg IM STAT PRN; Protocol PRN Reason: Hypoglycemia Protocol Heparin Sodium (Porcine) (Heparin) 5,000 units SC Q8 [facility] Last Admin: 03/26/19 06:21 Dose: Not Given Hydralazine HCl (Apresoline) 25 mg PO TID [facility] Dextrose (Dextrose 5% In Water 1000 Ml) 1,000 mls @ 0 mls/hr IV .Q0M PRN; Protocol PRN Reason: Hypoglycemia Protocol Insulin Human Regular (Novolin R) 0 unit SC ACHS [facility]; Protocol Last Admin: 03/26/19 08:00 Dose: Not Given Losartan Potassium (Cozaar) 25 mg PO DAILY [facility] Metolazone (Zaroxolyn) 5 mg PO QAM [facility] Last Admin: 03/25/19 10:00 Dose: Not Given Metoprolol Tartrate (Lopressor) 25 mg PO BID [facility] Multivitamins (Hexavitamin) 1 tab PO DAILY [facility] Last Admin: 03/25/19 10:00 Dose: Not Given Nicotine (Nicoderm Cq) 1 patch TD DAILY [facility] Stop: 04/28/19 23:59 Last Admin: 03/25/19 10:00 Dose: Not Given Polyethylene Glycol (Miralax) 17 gm PO DAILY [facility] Last Admin: 03/25/19 10:00 Dose: Not Given Thiamine HCl (Vitamin B1 Tab) 100 mg PO DAILY [facility] Last Admin: 03/25/19 10:00 Dose: Not Given Trazodone HCl (Desyrel) 100 mg PO HS PRN PRN Reason: Insomnia Last Admin: 03/25/19 22:45 Dose: 100 mg - Labs Labs: 03/25/19 07:55 03/25/19 11:36 PT 12.3 SECONDS (9.7-12.2) H 03/25/19 07:55 INR 1.1 03/25/19 07:55 APTT 38.0 SECONDS (21-34) H 03/25/19 07:55 - Constitutional Appears: Non-toxic, No Acute Distress - Respiratory Exam Respiratory Exam: Clear to Ausculation Bilateral, NORMAL BREATHING PATTERN - Cardiovascular Exam Cardiovascular Exam: REGULAR RHYTHM, +S1, +S2 - GI/Abdominal Exam GI & Abdominal Exam: Soft. absent: Distended, Firm, Guarding, Rigid, Tenderness, Rebound - Extremities Exam Additional comments: right IJ tunneled Permacath left UE AV shunt with palpable thrill, palpable radial pulses - Neurological Exam Neurological Exam: Alert, Awake - Skin Skin Exam: Dry, Intact, Normal Color, Warm Assessment and Plan - Assessment and Plan (Free Text) Assessment: 58F with ESRD s/p right IJ permacath and left upper extremity AV shunt POD#1 Plan: - dialysis scheduled for today - Dressing care - No further surgical intervention Elmer Jacobson, PGY3
[2019-03-26] MEDS: POLYETHYLENE GLYCOL 3350 17 GM/Dose PACKET PO SCH (10:00)
[2019-03-26] MEDS: Multiple Vitamins Tab PO SCH (10:19)
[2019-03-26] MEDS: metOLazone 5 MG TAB PO SCH (10:19)
--- NOTE | 2019-03-26 15:05 | CP.PCM.PN ---
Subjective - Date & Time of Evaluation Date of Evaluation: 03/26/19 Time of Evaluation: 09:30 - Subjective Subjective: Nephro Progress Note for Dr. Smith Service Robin Palacio DO, PGY-3 Patient seen and examined at bedside. No further hypotensive episodes reported, and patient denies any further episodes of facial numbness. Only complaint is intermittent leg pain, cramping, occurring especially at night. Denies chest pain, shortness of breath, abdominal pain, nausea, emesis. S/p AVF and permacath placement yesterday. Episode of tachy to 150's overnight, resolved this AM. Pending initial HD today, will repeat tomorrow. Objective - Vital Signs/Intake and Output Vital Signs (last 24 hours): Temp Pulse Resp BP Pulse Ox 98 F 76 18 102/82 98 03/26/19 13:30 03/26/19 13:30 03/26/19 13:30 03/26/19 13:30 03/26/19 13:30 Intake and Output: 03/26/19 03/26/19 06:59 18:59 Intake Total 400 Output Total 150 Balance 250 - Medications Medications: Current Medications Acetaminophen (Tylenol 325mg Tab) 650 mg PO Q6 PRN PRN Reason: Pain, moderate (4-7) Last Admin: 03/26/19 09:50 Dose: 325 mg Albuterol/Ipratropium (Duoneb 3 Mg/0.5 Mg (3 Ml) Ud) 3 ml INH RQ6 PRN PRN Reason: Shortness of Breath Amlodipine Besylate (Norvasc) 10 mg PO Q24H [facility] Last Admin: 03/26/19 08:10 Dose: 10 mg Apixaban (Eliquis) 5 mg PO BID [facility] Aspirin (Ecotrin) 81 mg PO DAILY [facility] Last Admin: 03/26/19 10:19 Dose: 81 mg Carvedilol (Coreg) 12.5 mg PO BID [facility] Last Admin: 03/25/19 18:56 Dose: 12.5 mg Dextrose (Dextrose 50% Inj) 0 ml IV STAT PRN; Protocol PRN Reason: Hypoglycemia Protocol Dextrose (Glutose 15) 0 gm PO ONCE PRN; Protocol PRN Reason: Hypoglycemia Protocol Docusate Sodium (Colace) 100 mg PO TID [facility] Last Admin: 03/26/19 10:20 Dose: 100 mg Ergocalciferol (Drisdol 50,000 Intl Units Cap) 1 cap PO Q7D [facility] Stop: 05/05/19 12:01 Last Admin: 03/24/19 15:19 Dose: 1 cap Folic Acid (Folic Acid) 1 mg PO DAILY [facility] Last Admin: 03/26/19 10:19 Dose: 1 mg Furosemide (Lasix) 40 mg PO Q24H [facility] Last Admin: 03/26/19 08:09 Dose: 40 mg Gabapentin (Neurontin) 100 mg PO DAILY [facility] Last Admin: 03/26/19 10:19 Dose: 100 mg Glucagon (Glucagen Diagnostic Kit) 0 mg IM STAT PRN; Protocol PRN Reason: Hypoglycemia Protocol Hydralazine HCl (Apresoline) 25 mg PO TID [facility] Dextrose (Dextrose 5% In Water 1000 Ml) 1,000 mls @ 0 mls/hr IV .Q0M PRN; Protocol PRN Reason: Hypoglycemia Protocol Insulin Human Regular (Novolin R) 0 unit SC ACHS [facility]; Protocol Last Admin: 03/26/19 08:00 Dose: Not Given Losartan Potassium (Cozaar) 25 mg PO DAILY [facility] Metolazone (Zaroxolyn) 5 mg PO QAM [facility] Last Admin: 03/26/19 10:19 Dose: 5 mg Multivitamins (Hexavitamin) 1 tab PO DAILY [facility] Last Admin: 03/26/19 10:19 Dose: 1 tab Nicotine (Nicoderm Cq) 1 patch TD DAILY [facility] Stop: 04/28/19 23:59 Last Admin: 03/26/19 10:18 Dose: 1 patch Polyethylene Glycol (Miralax) 17 gm PO DAILY [facility] Last Admin: 03/25/19 10:00 Dose: Not Given Thiamine HCl (Vitamin B1 Tab) 100 mg PO DAILY [facility] Last Admin: 03/26/19 10:20 Dose: 100 mg Trazodone HCl (Desyrel) 100 mg PO HS PRN PRN Reason: Insomnia Last Admin: 03/25/19 22:45 Dose: 100 mg - Labs Labs: 03/25/19 07:55 03/25/19 11:36 PT 12.3 SECONDS (9.7-12.2) H 03/25/19 07:55 INR 1.1 03/25/19 07:55 APTT 38.0 SECONDS (21-34) H 03/25/19 07:55 - Additional Findings Additional findings: - Constitutional Appears: Non-toxic, No Acute Distress - Head Exam Head Exam: ATRAUMATIC, NORMOCEPHALIC - Eye Exam Eye Exam: EOMI, Right eye with fixed gaze defect (lateral and superior). absent: Conjunctival injection, Scleral icterus Pupil Exam: absent: Irregular, Unequal - ENT Exam ENT Exam: Mucous Membranes Moist - Neck Exam Neck exam: Negative for: Lymphadenopathy, Thyromegaly - Respiratory Exam Respiratory Exam: Clear to Auscultation Bilateral, Prolonged Expiratory Phase, NORMAL BREATHING PATTERN, Mild chest wall tenderness at/around site of Right chest wall permacath. absent: Accessory Muscle Use, Chest Wall Tenderness, Decreased Breath Sounds, Rales, Rhonchi, Wheezes - Cardiovascular Exam Cardiovascular Exam: REGULAR RHYTHM, RRR, +S1, +S2. absent: Bradycardia, Tachycardia, Irregular Rhythm, JVD, +S4 - GI/Abdominal Exam resolved abdominal distension (now soft and without tenderness on palpation/compression, less firm and less tender diffusely) No spider angiomata or caput medusa appreciated Normal bowel sounds - Extremities Exam Extremities exam: Appropriate ROM, significantly reduced pedal edema (down to trace in bilateral ankles to shins), decreased tenderness/stiffness of R ankle, bandaging at site of LUE fistula. Negative for: calf tenderness, pedal pulses present (unable to palpate pulses through pedal edema) - Neurological Exam Awake and alert, moving all extremities spontaneously and on command - Psychiatric Exam Psychiatric exam: Normal Affect, Normal Mood - Skin Skin Exam: Intact, Normal Color, waxy skin tone at bilateral LE from ankles to mid-thighs Assessment and Plan - Assessment and Plan (Free Text) Assessment: This is a 58 yo F with PMH of HTN, DM2, CVA x2 (first in 2005, date of 2nd unknown), CKD, and frequent cocaine and heroin abuse (snort/smoking, denies ever injecting) who presented to [facility] with complaints of progressively swelling bilateral LE x2-3 months, progressively worsening shortness of breath (exertional and intermittently at rest), and worsening abdominal swelling and pain x2 months. Nephro was consulted due to SUSANNAH over CVD vs progressively worsening renal function. S/p AVF and permacath, pending HD today and tomorrow, pending establishment with outpatient HD. Plan: 1) Bilateral LE and abdominal swelling, possible anasarca 2) Active tobacco, cocaine, and heroin abuse 3) HTN 4) DM2 5) Hx CVA x2 6) Worsening renal function SUSANNAH on CKD vs Progressive renal failure 7) Medication non-compliance 8) Left-sided facial numbness 9) Elevated uric acid, poss gout attack -Cr 2.6 on admission, last was 3.2, 1.7-1.9 in 2018, 1.1-1.3 in 2017 Progressively worsening, unclear etiology; drug-induced (vasospasm from cocaine vs hypoperfusing 2/2 heroin use), cardiorenal, DM nephropathy Renal bx: diabetic nephropathy changes, vascular disease, segmental glomerular sclerosis on a background of marked interstitial fibrosis Path + Cr clearance 13 suggests pending ESRD, highly unlikely any meaningful recovery of function would be obtained with medical management Start HD today, second session tomorrow -BP control improved, SBP 120's-150's in last 24 hrs, goal is 130's-140's Current regimen: Amlodipine 10mg, Coreg 12.5mg BID, Losartan 25mg daily, metalazone 5mg daily -Cardio consulted, appreciate their recs -CT abd/pelvis findings concerning for possible adrenal adenomas, but workup for pheo/primary hyperaldo/subclinical Darrion all negative -Uric Acid 10, given right ankle pain and stiffness may be gout flare Patient now admitted to hx of gout Avoid acute urate lowering therapy, as can provoke/worsen flare Colchicine contraindicated due to B-bc, may improve with HD Patient reviewed and discussed with attending, Dr. Smith
[2019-03-27] MEDS: (Novolin R) Insulin Human Regular 100 units/ml vial SC SCH ×4 (07:30→21:36)
--- NOTE | 2019-03-27 08:51 | CP.PCM.PN ---
<Kervin Salazar - Last Filed: 03/27/19 12:05> Subjective - Date & Time of Evaluation Date of Evaluation: 03/27/19 Time of Evaluation: 08:46 - Subjective Subjective: Medicine progress note for Dr. Amor Tirado's service: Patient was seen and examined at bedside. Nursing reports no acute events overnight. Patient found resting comfortably at bedside. Patient for 2nd dialysis this afternoon - admits tolerating initial dialysis yesterday w/o difficulty. Patient complains of right foot pain, that is chronic, and made worse with walking. Also states she has chronic constipation and has not moved her bowels for four days. Denies abd pain, N/V. Admits tolerating diet without difficulty. Objective - Vital Signs/Intake and Output Vital Signs (last 24 hours): Temp Pulse Resp BP Pulse Ox 98.1 F 71 20 153/73 H 96 03/27/19 07:00 03/27/19 07:00 03/27/19 07:00 03/27/19 07:00 03/27/19 07:00 Intake and Output: 03/27/19 03/27/19 06:59 18:59 Intake Total 240 Balance 240 - Medications Medications: Current Medications Acetaminophen (Tylenol 325mg Tab) 650 mg PO Q6 PRN PRN Reason: Pain, moderate (4-7) Last Admin: 03/27/19 00:02 Dose: 650 mg Albuterol/Ipratropium (Duoneb 3 Mg/0.5 Mg (3 Ml) Ud) 3 ml INH RQ6 PRN PRN Reason: Shortness of Breath Amlodipine Besylate (Norvasc) 10 mg PO Q24H [facility] Last Admin: 03/26/19 08:10 Dose: 10 mg Apixaban (Eliquis) 5 mg PO BID [facility] Aspirin (Ecotrin) 81 mg PO DAILY [facility] Last Admin: 03/26/19 10:19 Dose: 81 mg Carvedilol (Coreg) 12.5 mg PO BID [facility] Last Admin: 03/26/19 17:46 Dose: 12.5 mg Dextrose (Dextrose 50% Inj) 0 ml IV STAT PRN; Protocol PRN Reason: Hypoglycemia Protocol Dextrose (Glutose 15) 0 gm PO ONCE PRN; Protocol PRN Reason: Hypoglycemia Protocol Docusate Sodium (Colace) 100 mg PO TID [facility] Last Admin: 03/26/19 17:49 Dose: 100 mg Ergocalciferol (Drisdol 50,000 Intl Units Cap) 1 cap PO Q7D [facility] Stop: 05/05/19 12:01 Last Admin: 03/24/19 15:19 Dose: 1 cap Folic Acid (Folic Acid) 1 mg PO DAILY [facility] Last Admin: 03/26/19 10:19 Dose: 1 mg Furosemide (Lasix) 40 mg PO Q24H [facility] Last Admin: 03/26/19 08:09 Dose: 40 mg Gabapentin (Neurontin) 100 mg PO BID [facility] Last Admin: 03/26/19 20:45 Dose: 100 mg Glucagon (Glucagen Diagnostic Kit) 0 mg IM STAT PRN; Protocol PRN Reason: Hypoglycemia Protocol Hydralazine HCl (Apresoline) 25 mg PO TID [facility] Last Admin: 03/26/19 17:48 Dose: 25 mg Dextrose (Dextrose 5% In Water 1000 Ml) 1,000 mls @ 0 mls/hr IV .Q0M PRN; Protocol PRN Reason: Hypoglycemia Protocol Insulin Human Regular (Novolin R) 0 unit SC ACHS [facility]; Protocol Last Admin: 03/26/19 21:21 Dose: Not Given Losartan Potassium (Cozaar) 25 mg PO DAILY [facility] Metolazone (Zaroxolyn) 5 mg PO QAM [facility] Last Admin: 03/26/19 10:19 Dose: 5 mg Multivitamins (Hexavitamin) 1 tab PO DAILY [facility] Last Admin: 03/26/19 10:19 Dose: 1 tab Nicotine (Nicoderm Cq) 1 patch TD DAILY [facility] Stop: 04/28/19 23:59 Last Admin: 03/26/19 10:18 Dose: 1 patch Polyethylene Glycol (Miralax) 17 gm PO DAILY [facility] Last Admin: 03/25/19 10:00 Dose: Not Given Thiamine HCl (Vitamin B1 Tab) 100 mg PO DAILY [facility] Last Admin: 03/26/19 10:20 Dose: 100 mg Trazodone HCl (Desyrel) 100 mg PO HS PRN PRN Reason: Insomnia Last Admin: 03/25/19 22:45 Dose: 100 mg - Labs Labs: 03/25/19 07:55 03/25/19 11:36 PT 12.3 SECONDS (9.7-12.2) H 03/25/19 07:55 INR 1.1 03/25/19 07:55 APTT 38.0 SECONDS (21-34) H 03/25/19 07:55 - Additional Findings Additional findings: - Constitutional Appears: Non-toxic, No Acute Distress - Head Exam Head Exam: ATRAUMATIC, NORMAL INSPECTION - Eye Exam Additional comments: R eye fixed laterally - ENT Exam ENT Exam: Mucous Membranes Moist - Neck Exam Neck Exam: Normal Inspection - Respiratory Exam Respiratory Exam: Clear to Auscultation Bilateral, NORMAL BREATHING PATTERN. absent: Respiratory Distress - Cardiovascular Exam Cardiovascular Exam: RRR, +S1, +S2 - GI/Abdominal Exam GI & Abdominal Exam: Soft. absent: Distended, Tenderness - Extremities Exam Extremities Exam: Normal Inspection, Tenderness. absent: Pedal Edema Additional comments: RUE midline R IJ tunneled Permacath with clean dry dressing LUE AV shunt with palpable thrill, palpable radial pulses (mild TTP at site) Right foot pain (dorsal side) TTP, worse with ambulation; no gait dysfunction - Neurological Exam Neurological Exam: Alert, Awake, Normal Gait, Oriented x3 - Psychiatric Exam Psychiatric exam: Normal Affect, Normal Mood - Skin Skin Exam: Dry, Normal Color, Warm Assessment and Plan - Assessment and Plan (Free Text) Plan: Assessment: Patient is a 58 yo female with CKD, HTN, T2DM, and polysubstance use (heroin and cocaine) who presented with leg swelling and abdominal pain. Patient found to have worsening kidney disease and severe constipation. Echo notable for severe pulm HTN. Patient also Patient had L renal biopsy on 03/22- diabetic nephropathy. Patient had AV graft and permacath placed 03/25. Will start HD today 03/26. 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, 23% global glomerulosclerosis, moderate interstitial fibrosis and moderate arteriosclerosis; diffuse foot process effacement which may be due to in part to ischemic injury (in the setting of cocaine abuse) - Vein mapping done on 03/20 - L AV graft and R permacath placed 03/25 - Start HD today Monday 03/26 - Apply ice pack to LUE if pain - Tylenol 650 mg PO Q6H PRN - Avoid NSAIDs - Metolazone 5 mg PO daily - Nephrology consulted ([facility]) - Vascular surgery consulted ([place])- permacath and AVF Hypertension, chronic, poorly controlled, improving- SBP goal 130-140 - Echo: mod-severe concentric LVH - Vitals Q6H - Lasix 40 mg PO daily (8am) - Norvasc 10 mg PO daily (8am) - Hydralazine 50 mg PO TID (10am, 2pm, 8pm) - Decrease Coreg to 12.5 mg PO BID (10am, 6pm) - Metolazone 5 mg PO daily (10am) - Hold each med if SBP <140 Atrial flutter, acute, resolved - Patient with HR 140s briefly on 03/25, telemetry shows NSR with intermittent runs of Aflutter - Continue Coreg 12.5 mg PO BID - Start Eliquis 5 mg PO BID tomorrow 03/27 - Cardiology consulted ([facility])- rec Eliquis, Metoprolol Acute decompensated diastolic congestive heart failure (HFpEF), improving - CXR: cardiomegaly, L pleural effusion - EKG: NSR, PVCs - LE Dopplers: no DVT - Echo: EF 62%, mod-severe LVH, severe pulm HTN, mod TR - CT A/P: Mild CHF suspected. [id number] left and mild right pleural effusions identified. - BNP 31,300--> 12,300 - Trop negative - Monitor on telemetry - Fluid restriction 1500 mL - Strict Is & Os - 03/25: +900 mL - Daily weights- 75 kg--> 65 kg - Duoneb Q6H PRN - Lasix 40 mg PO daily (8am) - Decrease Coreg to 12.5 mg PO BID (10am, 6pm) - Metolazone 5 mg PO daily (10am) - Cardiology consulted ([facility]) Constipation, acute on chronic, improving - CT A/P: Prominent fecal loading is seen throughout the ascending through transverse large-bowel segments and is otherwise mild without gross mural thickening evident. - Miralax 17 g PO daily - Colace 100 mg PO TID - Lactulose x1 on 03/19, x1 on 03/22 - Mineral oil enema x1 on 03/19, x1 on 03/20 - Encouraged patient to walk 10 laps around unit every 2 hours Vitamin D deficiency- suspect 2/2 kidney disease - 25-OH vit D <12.5 - Vitamin D 50,000 IU Q1WK on 03/20 (Friday) x 8 doses H/o type 2 diabetes mellitus with diabetic neuropathy, chronic - A1c 6 - Accuchecks ACHS - Range 120-180 - Hypoglycemia protocol - ISS low - ASA 81 mg PO daily - Gabapentin 100 mg PO daily (max 300 mg for renal dose) - Podiatry consulted ([facility])- diabetic foot exam and nail care Hepatic steatosis, chronic - HIV and hepatitis negative - LFTs wnl - Albumin low - Abd US: mild hepatomegaly. Diffuse increased echogenicity in the liver may reflect hepatic steatosis. Nodular contour of the liver could represent cirrhosis. Medical renal disease. Gallbladder is contracted but no cholelithiasis. Mild diffuse dilation of the common bile duct without evidence f or choledocholithiasis. - CT A/P: Hepatomegaly noted without focal mass or gross intrahepatic biliary duct dilatation. Mild anasarca. - Hepatobiliary surgeon consulted ([facility]) Polysubstance use disorder, chronic- heroin (intranasal), cocaine, tobacco, alcohol - UDS positive for cocaine and opiates - BAL <10 - HIV and hepatitis negative - CIWA (0) - Completed Methadone taper - Nicoderm daily - Multivitamin daily - Thiamine 100 mg PO daily - Folate 1 mg PO daily - Trazodone 100 mg PO QHS PRN - Psychiatry consulted ([facility]) Adrenal mass/hyperplasia, chronic - CT A/P: Benign right adrenal adenoma suspected. Left adrenal hyperplasia identified and may coexistent right adrenal gland. - 1 mg Dexamethasone suppression test- AM cortisol low (4.3) - Plasma metaneprhine wnl - Plasma normetanephrine elev (377) Ppx: VTE: SCDs contraindicated, Eliquis GI: Pepcid 20 mg PO daily Diet: Heart healthy, renal, 2g Na Code status: full code Dispo: First dialysis yesterday, 03/26. Second dialysis today. Pending outpatient HD placement. Case was discussed with attending, Dr. Amor Tirado. <Pardeep Tirado - Last Filed: 03/28/19 17:29> Objective - Vital Signs/Intake and Output Vital Signs (last 24 hours): Temp Pulse Resp BP Pulse Ox 97.6 F 67 20 108/79 95 03/28/19 16:46 03/28/19 16:46 03/28/19 16:46 03/28/19 16:46 03/28/19 16:46 Intake and Output: 03/28/19 03/28/19 06:59 18:59 Intake Total 350 Balance 350 - Medications Medications: Current Medications Acetaminophen (Tylenol 325mg Tab) 650 mg PO Q6 PRN PRN Reason: Pain, moderate (4-7) Last Admin: 03/28/19 00:03 Dose: 650 mg Albuterol/Ipratropium (Duoneb 3 Mg/0.5 Mg (3 Ml) Ud) 3 ml INH RQ6 PRN PRN Reason: Shortness of Breath Amlodipine Besylate (Norvasc) 10 mg PO Q24H [facility] Last Admin: 03/28/19 09:00 Dose: Not Given Apixaban (Eliquis) 5 mg PO BID [facility] Last Admin: 03/28/19 11:00 Dose: 5 mg Aspirin (Ecotrin) 81 mg PO DAILY [facility] Last Admin: 03/28/19 11:00 Dose: 81 mg Carvedilol (Coreg) 12.5 mg PO BID [facility] Last Admin: 03/28/19 11:00 Dose: 12.5 mg Dextrose (Dextrose 50% Inj) 0 ml IV STAT PRN; Protocol PRN Reason: Hypoglycemia Protocol Dextrose (Glutose 15) 0 gm PO ONCE PRN; Protocol PRN Reason: Hypoglycemia Protocol Docusate Sodium (Colace) 100 mg PO TID [facility] Last Admin: 03/28/19 13:14 Dose: 100 mg Ergocalciferol (Drisdol 50,000 Intl Units Cap) 1 cap PO Q7D [facility] Stop: 05/05/19 12:01 Last Admin: 03/24/19 15:19 Dose: 1 cap Folic Acid (Folic Acid) 1 mg PO DAILY [facility] Last Admin: 03/28/19 11:00 Dose: 1 mg Furosemide (Lasix) 40 mg PO Q24H [facility] Last Admin: 03/28/19 09:00 Dose: 40 mg Gabapentin (Neurontin) 100 mg PO BID [facility] Last Admin: 03/28/19 11:00 Dose: 100 mg Glucagon (Glucagen Diagnostic Kit) 0 mg IM STAT PRN; Protocol PRN Reason: Hypoglycemia Protocol Hydralazine HCl (Apresoline) 25 mg PO TID [facility] Last Admin: 03/28/19 13:16 Dose: 25 mg Dextrose (Dextrose 5% In Water 1000 Ml) 1,000 mls @ 0 mls/hr IV .Q0M PRN; Protocol PRN Reason: Hypoglycemia Protocol Insulin Human Regular (Novolin R) 0 unit SC ACHS [facility]; Protocol Last Admin: 03/28/19 16:48 Dose: Not Given Losartan Potassium (Cozaar) 25 mg PO DAILY [facility] Last Admin: 03/28/19 11:00 Dose: 25 mg Metolazone (Zaroxolyn) 5 mg PO QAM [facility] Last Admin: 03/28/19 11:00 Dose: 5 mg Multivitamins (Hexavitamin) 1 tab PO DAILY [facility] Last Admin: 03/28/19 11:00 Dose: 1 tab Naproxen (Anaprox) 275 mg PO BID [facility] Last Admin: 03/28/19 11:00 Dose: 275 mg Nicotine (Nicoderm Cq) 1 patch TD DAILY [facility] Stop: 04/28/19 23:59 Last Admin: 03/28/19 11:00 Dose: 1 patch Polyethylene Glycol (Miralax) 17 gm PO DAILY [facility] Last Admin: 03/28/19 11:00 Dose: 17 gm Thiamine HCl (Vitamin B1 Tab) 100 mg PO DAILY [facility] Last Admin: 03/28/19 11:00 Dose: 100 mg Trazodone HCl (Desyrel) 100 mg PO HS PRN PRN Reason: Insomnia Last Admin: 03/28/19 00:03 Dose: 100 mg - Labs Labs: 03/27/19 14:27 03/27/19 14:27 PT 12.3 SECONDS (9.7-12.2) H 03/25/19 07:55 INR 1.1 03/25/19 07:55 APTT 38.0 SECONDS (21-34) H 03/25/19 07:55 Attending/Attestation - Attestation I have personally seen and examined this patient.: Yes I have fully participated in the care of the patient.: Yes I have reviewed all pertinent clinical information, including history, physical exam and plan: Yes Notes (Text): 03/28/19 17:28 This is a late entry. Care of this patient was gone over with resident Dr. Salazar. Pardeep Tirado D.O.
[2019-03-27] MEDS: Multiple Vitamins Tab PO SCH (09:44)
--- NOTE | 2019-03-27 10:24 | CP.PCM.PCO ---
Physician Communication Note - Physician Communication Note Physician Communication Note: Please see above
[2019-03-27] MEDS: metOLazone 5 MG TAB PO SCH (10:38)
[2019-03-27] MEDS: Naproxen 275 mg Tab PO SCH ×2 (12:31→18:00)
[2019-03-27] MEDS: POLYETHYLENE GLYCOL 3350 17 GM/Dose PACKET PO SCH ×2 (12:36→18:06)
[2019-03-27 14:33] LABS: BASO # 0.1 K/uL (0.0-0.2); BASO % 0.9 % (0.0-2.0); EOS # 0.5 K/uL (0.0-0.7); EOS % 6.7 % (0.0-4.0); HEMOGLOBIN 12.8 g/dL (11.0-16.0); LYMPH # 1.2 K/uL (1.0-4.3); LYMPH % 14.6 % (20.0-40.0); MEAN CELL VOLUME 94.8 fL (81.0-99.0); MEAN CORPUSCULAR HEMOGLOBIN 31.2 pg (27.0-31.0); MEAN CORPUSCULAR HGB CONC 32.9 g/dL (33.0-37.0); MEAN PLATELET VOLUME 10.6 fL (7.2-11.7); MONO # 0.7 K/uL (0.0-0.8); MONO % 8.8 % (0.0-10.0); NEUT # 5.6 K/uL (1.8-7.0); NRBC % 0.1 % (0.0-2.0); RBC 4.12 Mil/uL (3.80-5.20); RED CELL DISTRIBUTION WIDTH 15.3 % (11.5-14.5); WHITE BLOOD COUNT 8.1 K/uL (4.8-10.8)
[2019-03-27 14:49] LABS: ALB/GLOB RATIO 1.2 (1.0-2.1); ALBUMIN 3.7 g/dL (3.5-5.0); CALCIUM 9.2 mg/dl (8.6-10.4)
--- NOTE | 2019-03-27 21:56 | CP.PCM.PN ---
Subjective - Date & Time of Evaluation Date of Evaluation: 03/27/19 Time of Evaluation: 12:00 - Subjective Subjective: Patient complaining of post-surgical pain of AVG arm; also with L foot pain; breathing well; leg swelling improved; Objective - Vital Signs/Intake and Output Vital Signs (last 24 hours): Temp Pulse Resp BP Pulse Ox 98 F 74 18 167/60 H 96 03/27/19 17:00 03/27/19 17:00 03/27/19 17:00 03/27/19 18:06 03/27/19 17:00 - Medications Medications: Current Medications Acetaminophen (Tylenol 325mg Tab) 650 mg PO Q6 PRN PRN Reason: Pain, moderate (4-7) Last Admin: 03/27/19 14:57 Dose: 650 mg Albuterol/Ipratropium (Duoneb 3 Mg/0.5 Mg (3 Ml) Ud) 3 ml INH RQ6 PRN PRN Reason: Shortness of Breath Amlodipine Besylate (Norvasc) 10 mg PO Q24H [facility] Last Admin: 03/27/19 11:00 Dose: Not Given Apixaban (Eliquis) 5 mg PO BID [facility] Last Admin: 03/27/19 18:05 Dose: 5 mg Aspirin (Ecotrin) 81 mg PO DAILY [facility] Last Admin: 03/27/19 09:44 Dose: 81 mg Carvedilol (Coreg) 12.5 mg PO BID [facility] Last Admin: 03/27/19 18:06 Dose: Not Given Dextrose (Dextrose 50% Inj) 0 ml IV STAT PRN; Protocol PRN Reason: Hypoglycemia Protocol Dextrose (Glutose 15) 0 gm PO ONCE PRN; Protocol PRN Reason: Hypoglycemia Protocol Docusate Sodium (Colace) 100 mg PO TID [facility] Last Admin: 03/27/19 18:06 Dose: 100 mg Ergocalciferol (Drisdol 50,000 Intl Units Cap) 1 cap PO Q7D [facility] Stop: 05/05/19 12:01 Last Admin: 03/24/19 15:19 Dose: 1 cap Folic Acid (Folic Acid) 1 mg PO DAILY [facility] Last Admin: 03/27/19 09:45 Dose: 1 mg Furosemide (Lasix) 40 mg PO Q24H [facility] Last Admin: 03/27/19 09:48 Dose: 40 mg Gabapentin (Neurontin) 100 mg PO BID [facility] Last Admin: 03/27/19 18:05 Dose: 100 mg Glucagon (Glucagen Diagnostic Kit) 0 mg IM STAT PRN; Protocol PRN Reason: Hypoglycemia Protocol Hydralazine HCl (Apresoline) 25 mg PO TID [facility] Last Admin: 03/27/19 18:06 Dose: 25 mg Dextrose (Dextrose 5% In Water 1000 Ml) 1,000 mls @ 0 mls/hr IV .Q0M PRN; Protocol PRN Reason: Hypoglycemia Protocol Insulin Human Regular (Novolin R) 0 unit SC ACHS [facility]; Protocol Last Admin: 03/27/19 21:36 Dose: Not Given Losartan Potassium (Cozaar) 25 mg PO DAILY [facility] Last Admin: 03/27/19 11:43 Dose: Not Given Metolazone (Zaroxolyn) 5 mg PO QAM [facility] Last Admin: 03/27/19 10:38 Dose: 5 mg Multivitamins (Hexavitamin) 1 tab PO DAILY [facility] Last Admin: 03/27/19 09:44 Dose: 1 tab Naproxen (Anaprox) 275 mg PO BID [facility] Last Admin: 03/27/19 18:00 Dose: Not Given Nicotine (Nicoderm Cq) 1 patch TD DAILY [facility] Stop: 04/28/19 23:59 Last Admin: 03/27/19 10:36 Dose: 1 patch Polyethylene Glycol (Miralax) 17 gm PO DAILY [facility] Last Admin: 03/27/19 18:06 Dose: 17 gm Thiamine HCl (Vitamin B1 Tab) 100 mg PO DAILY [facility] Last Admin: 03/27/19 12:22 Dose: 100 mg Trazodone HCl (Desyrel) 100 mg PO HS PRN PRN Reason: Insomnia Last Admin: 03/25/19 22:45 Dose: 100 mg - Labs Labs: 03/27/19 14:27 03/27/19 14:27 PT 12.3 SECONDS (9.7-12.2) H 03/25/19 07:55 INR 1.1 03/25/19 07:55 APTT 38.0 SECONDS (21-34) H 03/25/19 07:55 - Constitutional Appears: Non-toxic, No Acute Distress - Eye Exam Eye Exam: Normal appearance - Respiratory Exam Respiratory Exam: Clear to Ausculation Bilateral. absent: Respiratory Distress - Cardiovascular Exam Cardiovascular Exam: Irregular Rhythm, +S1, +S2 - GI/Abdominal Exam GI & Abdominal Exam: Soft. absent: Distended, Tenderness - Extremities Exam Additional comments: moderate lower leg edema; - Neurological Exam Neurological Exam: Alert, Awake - Psychiatric Exam Psychiatric exam: Normal Mood. absent: Agitated - Skin Skin Exam: Warm. absent: Cyanosis Assessment and Plan (1) SUSANNAH (acute kidney injury) Assessment & Plan: At this point we will deem her ESRD based on low CrCl and chronicity seen on renal biopsy; stable lytes; still with volume excess on exam; -2nd HD today, over 3 hrs with 1L UF goal; -Avoid nephrotoxic agents (naproxen reluctantly started for post-surgical pain; tramadol may be better choice but concern over patient's opiate abuse); -Awaiting outpatient HD setup, will f/u on Friday; -Next HD for Friday; Status: Acute (2) Hypertensive chronic kidney disease Assessment & Plan: BP control erratic but patient hasn't received morning meds today; losartan just started, will increase dose as tolerated; Status: Acute (3) CHF (congestive heart failure) Assessment & Plan: Acute decompensated diastolic CHF; sympomatically much improved but still significant leg edema; will continue PO diuretics, UF on HD; Status: Acute (4) Proteinuria Assessment & Plan: Will benefit from keeping on ADRIANA blockade with losartan to preserve residual renal function; Status: Chronic
--- NOTE | 2019-03-28 00:48 | CP.PCM.PN ---
<Edvin Posey - Last Filed: 03/28/19 00:51> Subjective - Date & Time of Evaluation Date of Evaluation: 03/28/19 Time of Evaluation: 00:47 - Subjective Subjective: HOSPITALIST SERVICE Pt s/e at bedside, denies cp sob fc nv at this time, tolerdate hd well, reports no acute symptoms at this time, understands her current status and agrees with plan for outpt hd spot placement Objective - Vital Signs/Intake and Output Vital Signs (last 24 hours): Temp Pulse Resp BP Pulse Ox 98 F 74 18 167/60 H 96 03/27/19 17:00 03/27/19 17:00 03/27/19 17:00 03/27/19 18:06 03/27/19 17:00 - Medications Medications: Current Medications Acetaminophen (Tylenol 325mg Tab) 650 mg PO Q6 PRN PRN Reason: Pain, moderate (4-7) Last Admin: 03/28/19 00:03 Dose: 650 mg Albuterol/Ipratropium (Duoneb 3 Mg/0.5 Mg (3 Ml) Ud) 3 ml INH RQ6 PRN PRN Reason: Shortness of Breath Amlodipine Besylate (Norvasc) 10 mg PO Q24H [facility] Last Admin: 03/27/19 11:00 Dose: Not Given Apixaban (Eliquis) 5 mg PO BID [facility] Last Admin: 03/27/19 18:05 Dose: 5 mg Aspirin (Ecotrin) 81 mg PO DAILY [facility] Last Admin: 03/27/19 09:44 Dose: 81 mg Carvedilol (Coreg) 12.5 mg PO BID [facility] Last Admin: 03/27/19 18:06 Dose: Not Given Dextrose (Dextrose 50% Inj) 0 ml IV STAT PRN; Protocol PRN Reason: Hypoglycemia Protocol Dextrose (Glutose 15) 0 gm PO ONCE PRN; Protocol PRN Reason: Hypoglycemia Protocol Docusate Sodium (Colace) 100 mg PO TID [facility] Last Admin: 03/27/19 18:06 Dose: 100 mg Ergocalciferol (Drisdol 50,000 Intl Units Cap) 1 cap PO Q7D [facility] Stop: 05/05/19 12:01 Last Admin: 03/24/19 15:19 Dose: 1 cap Folic Acid (Folic Acid) 1 mg PO DAILY [facility] Last Admin: 03/27/19 09:45 Dose: 1 mg Furosemide (Lasix) 40 mg PO Q24H [facility] Last Admin: 03/27/19 09:48 Dose: 40 mg Gabapentin (Neurontin) 100 mg PO BID [facility] Last Admin: 03/27/19 18:05 Dose: 100 mg Glucagon (Glucagen Diagnostic Kit) 0 mg IM STAT PRN; Protocol PRN Reason: Hypoglycemia Protocol Hydralazine HCl (Apresoline) 25 mg PO TID [facility] Last Admin: 03/27/19 18:06 Dose: 25 mg Dextrose (Dextrose 5% In Water 1000 Ml) 1,000 mls @ 0 mls/hr IV .Q0M PRN; Protocol PRN Reason: Hypoglycemia Protocol Insulin Human Regular (Novolin R) 0 unit SC ACHS [facility]; Protocol Last Admin: 03/27/19 21:36 Dose: Not Given Losartan Potassium (Cozaar) 25 mg PO DAILY [facility] Last Admin: 03/27/19 11:43 Dose: Not Given Metolazone (Zaroxolyn) 5 mg PO QAM [facility] Last Admin: 03/27/19 10:38 Dose: 5 mg Multivitamins (Hexavitamin) 1 tab PO DAILY [facility] Last Admin: 03/27/19 09:44 Dose: 1 tab Naproxen (Anaprox) 275 mg PO BID [facility] Last Admin: 03/27/19 18:00 Dose: Not Given Nicotine (Nicoderm Cq) 1 patch TD DAILY [facility] Stop: 04/28/19 23:59 Last Admin: 03/27/19 10:36 Dose: 1 patch Polyethylene Glycol (Miralax) 17 gm PO DAILY [facility] Last Admin: 03/27/19 18:06 Dose: 17 gm Thiamine HCl (Vitamin B1 Tab) 100 mg PO DAILY [facility] Last Admin: 03/27/19 12:22 Dose: 100 mg Trazodone HCl (Desyrel) 100 mg PO HS PRN PRN Reason: Insomnia Last Admin: 03/28/19 00:03 Dose: 100 mg - Labs Labs: 03/27/19 14:27 03/27/19 14:27 PT 12.3 SECONDS (9.7-12.2) H 03/25/19 07:55 INR 1.1 03/25/19 07:55 APTT 38.0 SECONDS (21-34) H 03/25/19 07:55 - Additional Findings Additional findings: - Constitutional Appears: Non-toxic, No Acute Distress - Head Exam Head Exam: ATRAUMATIC, NORMAL INSPECTION - Eye Exam Additional comments: R eye fixed laterally - ENT Exam ENT Exam: Mucous Membranes Moist - Neck Exam Neck Exam: Normal Inspection - Respiratory Exam Respiratory Exam: Clear to Auscultation Bilateral, NORMAL BREATHING PATTERN. absent: Respiratory Distress - Cardiovascular Exam Cardiovascular Exam: RRR, +S1, +S2 - GI/Abdominal Exam GI & Abdominal Exam: Soft. absent: Distended, Tenderness - Extremities Exam Extremities Exam: Normal Inspection, Tenderness. absent: Pedal Edema Additional comments: RUE midline R IJ tunneled Permacath with clean dry dressing LUE AV shunt with palpable thrill, palpable radial pulses (mild TTP at site) Right foot pain (dorsal side) TTP, worse with ambulation; no gait dysfunction - Neurological Exam Neurological Exam: Alert, Awake, Normal Gait, Oriented x3 - Psychiatric Exam Psychiatric exam: Normal Affect, Normal Mood - Skin Skin Exam: Dry, Normal Color, Warm Assessment and Plan - Assessment and Plan (Free Text) Plan: Assessment: Patient is a 58 yo female with CKD, HTN, T2DM, and polysubstance use (heroin and cocaine) who presented with leg swelling and abdominal pain. Patient found to have worsening kidney disease and severe constipation. Echo notable for severe pulm HTN. Patient also Patient had L renal biopsy on 03/22- diabetic nephropathy. Patient had AV graft and permacath placed 03/25. Will start HD today 03/26. 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, 23% global glomerulosclerosis, moderate interstitial fibrosis and moderate arteriosclerosis; diffuse foot process effacement which may be due to in part to ischemic injury (in the setting of cocaine abuse) - Vein mapping done on 03/20 - L AV graft and R permacath placed 03/25 - Start HD today Monday 03/26 - Apply ice pack to LUE if pain - Tylenol 650 mg PO Q6H PRN - Avoid NSAIDs - Metolazone 5 mg PO daily - [place] [place] - Vascular surgery consulted ([facility])- permacath and AVF Hypertension, chronic, poorly controlled, improving- SBP goal 130-140 - Echo: mod-severe concentric LVH - Vitals Q6H - Lasix 40 mg PO daily (8am) - Norvasc 10 mg PO daily (8am) - Hydralazine 50 mg PO TID (10am, 2pm, 8pm) - Decrease Coreg to 12.5 mg PO BID (10am, 6pm) - Metolazone 5 mg PO daily (10am) - Hold each med if SBP <140 Atrial flutter, acute, resolved - Patient with HR 140s briefly on 03/25, telemetry shows NSR with intermittent runs of Aflutter - Continue Coreg 12.5 mg PO BID - Start Eliquis 5 mg PO BID tomorrow 03/27 - Cardiology consulted (Randa)- rec Eliquis, Metoprolol Acute decompensated diastolic congestive heart failure (HFpEF), improving - CXR: cardiomegaly, L pleural effusion - EKG: NSR, PVCs - LE Dopplers: no DVT - Echo: EF 62%, mod-severe LVH, severe pulm HTN, mod TR - CT A/P: Mild CHF suspected. Auvs-ib-[id number] left and mild right pleural effusions identified. - BNP 31,300--> 12,300 - Trop negative - Monitor on telemetry - Fluid restriction 1500 mL - Strict Is & Os - 03/25: +900 mL - Daily weights- 75 kg--> 65 kg - Duoneb Q6H PRN - Lasix 40 mg PO daily (8am) - Decrease Coreg to 12.5 mg PO BID (10am, 6pm) - Metolazone 5 mg PO daily (10am) - Cardiology consulted (Randa) Constipation, acute on chronic, improving - CT A/P: Prominent fecal loading is seen throughout the ascending through transverse large-bowel segments and is otherwise mild without gross mural thickening evident. - Miralax 17 g PO daily - Colace 100 mg PO TID - Lactulose x1 on 03/19, x1 on 03/22 - Mineral oil enema x1 on 03/19, x1 on 03/20 - Encouraged patient to walk 10 laps around unit every 2 hours Vitamin D deficiency- suspect 2/2 kidney disease - 25-OH vit D <12.5 - Vitamin D 50,000 IU Q1WK on 03/20 (Friday) x 8 doses H/o type 2 diabetes mellitus with diabetic neuropathy, chronic - A1c 6 - Accuchecks ACHS - Range 120-180 - Hypoglycemia protocol - ISS low - ASA 81 mg PO daily - Gabapentin 100 mg PO daily (max 300 mg for renal dose) - Podiatry consulted (Ibrahima)- diabetic foot exam and nail care Hepatic steatosis, chronic - HIV and hepatitis negative - LFTs wnl - Albumin low - Abd US: mild hepatomegaly. Diffuse increased echogenicity in the liver may reflect hepatic steatosis. Nodular contour of the liver could represent cirrhosis. Medical renal disease. Gallbladder is contracted but no cholel ithiasis. Mild diffuse dilation of the common bile duct without evidence for choledocholithiasis. - CT A/P: Hepatomegaly noted without focal mass or gross intrahepatic biliary duct dilatation. Mild anasarca. - Hepatobiliary surgeon consulted (Wilson) Polysubstance use disorder, chronic- heroin (intranasal), cocaine, tobacco, alcohol - UDS positive for cocaine and opiates - BAL <10 - HIV and hepatitis negative - CIWA (0) - Completed Methadone taper - Nicoderm daily - Multivitamin daily - Thiamine 100 mg PO daily - Folate 1 mg PO daily - Trazodone 100 mg PO QHS PRN - Psychiatry consulted (Meli) Adrenal mass/hyperplasia, chronic - CT A/P: Benign right adrenal adenoma suspected. Left adrenal hyperplasia identified and may coexistent right adrenal gland. - 1 mg Dexamethasone suppression test- AM cortisol low (4.3) - Plasma metaneprhine wnl - Plasma normetanephrine elev (377) Ppx: VTE: SCDs contraindicated, Eliquis GI: Pepcid 20 mg PO daily Diet: Heart healthy, renal, 2g Na Code status: full code Dispo: First dialysis 03/26. Second dialysis 03/27. Pending outpatient HD placement. Case was discussed with attending, Dr. Amor Tirado. <Pardeep Tirado - Last Filed: 03/28/19 17:28> Objective - Vital Signs/Intake and Output Vital Signs (last 24 hours): Temp Pulse Resp BP Pulse Ox 97.6 F 67 20 108/79 95 03/28/19 16:46 03/28/19 16:46 03/28/19 16:46 03/28/19 16:46 03/28/19 16:46 Intake and Output: 03/28/19 03/28/19 06:59 18:59 Intake Total 350 Balance 350 - Medications Medications: Current Medications Acetaminophen (Tylenol 325mg Tab) 650 mg PO Q6 PRN PRN Reason: Pain, moderate (4-7) Last Admin: 03/28/19 00:03 Dose: 650 mg Albuterol/Ipratropium (Duoneb 3 Mg/0.5 Mg (3 Ml) Ud) 3 ml INH RQ6 PRN PRN Reason: Shortness of Breath Amlodipine Besylate (Norvasc) 10 mg PO Q24H [facility] Last Admin: 03/28/19 09:00 Dose: Not Given Apixaban (Eliquis) 5 mg PO BID [facility] Last Admin: 03/28/19 11:00 Dose: 5 mg Aspirin (Ecotrin) 81 mg PO DAILY [facility] Last Admin: 03/28/19 11:00 Dose: 81 mg Carvedilol (Coreg) 12.5 mg PO BID [facility] Last Admin: 03/28/19 11:00 Dose: 12.5 mg Dextrose (Dextrose 50% Inj) 0 ml IV STAT PRN; Protocol PRN Reason: Hypoglycemia Protocol Dextrose (Glutose 15) 0 gm PO ONCE PRN; Protocol PRN Reason: Hypoglycemia Protocol Docusate Sodium (Colace) 100 mg PO TID [facility] Last Admin: 03/28/19 13:14 Dose: 100 mg Ergocalciferol (Drisdol 50,000 Intl Units Cap) 1 cap PO Q7D [facility] Stop: 05/05/19 12:01 Last Admin: 03/24/19 15:19 Dose: 1 cap Folic Acid (Folic Acid) 1 mg PO DAILY [facility] Last Admin: 03/28/19 11:00 Dose: 1 mg Furosemide (Lasix) 40 mg PO Q24H [facility] Last Admin: 03/28/19 09:00 Dose: 40 mg Gabapentin (Neurontin) 100 mg PO BID [facility] Last Admin: 03/28/19 11:00 Dose: 100 mg Glucagon (Glucagen Diagnostic Kit) 0 mg IM STAT PRN; Protocol PRN Reason: Hypoglycemia Protocol Hydralazine HCl (Apresoline) 25 mg PO TID [facility] Last Admin: 03/28/19 13:16 Dose: 25 mg Dextrose (Dextrose 5% In Water 1000 Ml) 1,000 mls @ 0 mls/hr IV .Q0M PRN; Protocol PRN Reason: Hypoglycemia Protocol Insulin Human Regular (Novolin R) 0 unit SC ACHS [facility]; Protocol Last Admin: 03/28/19 16:48 Dose: Not Given Losartan Potassium (Cozaar) 25 mg PO DAILY [facility] Last Admin: 03/28/19 11:00 Dose: 25 mg Metolazone (Zaroxolyn) 5 mg PO QAM [facility] Last Admin: 03/28/19 11:00 Dose: 5 mg Multivitamins (Hexavitamin) 1 tab PO DAILY [facility] Last Admin: 03/28/19 11:00 Dose: 1 tab Naproxen (Anaprox) 275 mg PO BID [facility] Last Admin: 03/28/19 11:00 Dose: 275 mg Nicotine (Nicoderm Cq) 1 patch TD DAILY [facility] Stop: 04/28/19 23:59 Last Admin: 03/28/19 11:00 Dose: 1 patch Polyethylene Glycol (Miralax) 17 gm PO DAILY [facility] Last Admin: 03/28/19 11:00 Dose: 17 gm Thiamine HCl (Vitamin B1 Tab) 100 mg PO DAILY [facility] Last Admin: 03/28/19 11:00 Dose: 100 mg Trazodone HCl (Desyrel) 100 mg PO HS PRN PRN Reason: Insomnia Last Admin: 03/28/19 00:03 Dose: 100 mg - Labs Labs: 03/27/19 14:27 03/27/19 14:27 PT 12.3 SECONDS (9.7-12.2) H 03/25/19 07:55 INR 1.1 03/25/19 07:55 APTT 38.0 SECONDS (21-34) H 03/25/19 07:55 Attending/Attestation - Attestation I have personally seen and examined this patient.: Yes I have fully participated in the care of the patient.: Yes I have reviewed all pertinent clinical information, including history, physical exam and plan: Yes
[2019-03-28] MEDS: (Novolin R) Insulin Human Regular 100 units/ml vial SC SCH ×4 (08:16→21:15)
[2019-03-28] MEDS: Multiple Vitamins Tab PO SCH (11:00)
[2019-03-28] MEDS: metOLazone 5 MG TAB PO SCH (11:00)
[2019-03-28] MEDS: POLYETHYLENE GLYCOL 3350 17 GM/Dose PACKET PO SCH (11:00)
[2019-03-28] MEDS: Naproxen 275 mg Tab PO SCH ×2 (11:00→17:47)
--- NOTE | 2019-03-28 13:01 | CP.PCM.PCO ---
Physician Communication Note - Physician Communication Note Physician Communication Note: Please see above
[2019-03-29] MEDS: (Novolin R) Insulin Human Regular 100 units/ml vial SC SCH ×4 (07:09→21:15)
--- NOTE | 2019-03-29 08:00 | CP.PCM.PN ---
<Jamey Dhaliwal - Last Filed: 03/29/19 16:30> Subjective - Date & Time of Evaluation Date of Evaluation: 03/29/19 Time of Evaluation: 09:00 - Subjective Subjective: PGY1 Medicine progress note for Dr. Helton Pt seen and examined at bedside. Pt is resting comfortably. Pt endorses residual soreness in the right chest permacath and left upper arm AVF, but states it is getting better. Continues to complain of chronic right foot pain, which she takes Gabapentin for. Denies fever, chills, chest pain, sob, abdominal pain, n/v/d, headache, dizziness, hematochezia, melena, visual changes. Pt had a normal bowel movement this morning. We discussed [employer] or intermediate [employer] principal consequences of illicit drug use and their effects on the body. I also stressed the importance of adhering to medication regimen and dialysis as noncompliance can lead to worsening of her health and potentially . Pt relays understanding and states that she will follow instructions. Pt tolerating dialysis well. Objective - Vital Signs/Intake and Output Vital Signs (last 24 hours): Temp Pulse Resp BP Pulse Ox 98.5 F 61 20 137/70 97 03/29/19 07:00 03/29/19 07:00 03/29/19 07:00 03/29/19 07:00 03/29/19 07:00 - Medications Medications: Current Medications Acetaminophen (Tylenol 325mg Tab) 650 mg PO Q6 PRN PRN Reason: Pain, moderate (4-7) Last Admin: 03/28/19 00:03 Dose: 650 mg Albuterol/Ipratropium (Duoneb 3 Mg/0.5 Mg (3 Ml) Ud) 3 ml INH RQ6 PRN PRN Reason: Shortness of Breath Amlodipine Besylate (Norvasc) 10 mg PO Q24H [facility] Last Admin: 03/28/19 09:00 Dose: Not Given Apixaban (Eliquis) 5 mg PO BID [facility] Last Admin: 03/28/19 17:50 Dose: 5 mg Aspirin (Ecotrin) 81 mg PO DAILY [facility] Last Admin: 03/28/19 11:00 Dose: 81 mg Carvedilol (Coreg) 12.5 mg PO BID [facility] Last Admin: 03/28/19 17:48 Dose: 12.5 mg Dextrose (Dextrose 50% Inj) 0 ml IV STAT PRN; Protocol PRN Reason: Hypoglycemia Protocol Dextrose (Glutose 15) 0 gm PO ONCE PRN; Protocol PRN Reason: Hypoglycemia Protocol Docusate Sodium (Colace) 100 mg PO TID [facility] Last Admin: 03/28/19 17:48 Dose: 100 mg Ergocalciferol (Drisdol 50,000 Intl Units Cap) 1 cap PO Q7D [facility] Stop: 05/05/19 12:01 Last Admin: 03/24/19 15:19 Dose: 1 cap Folic Acid (Folic Acid) 1 mg PO DAILY [facility] Last Admin: 03/28/19 11:00 Dose: 1 mg Furosemide (Lasix) 40 mg PO Q24H [facility] Last Admin: 03/28/19 09:00 Dose: 40 mg Gabapentin (Neurontin) 100 mg PO BID [facility] Last Admin: 03/28/19 17:48 Dose: 100 mg Glucagon (Glucagen Diagnostic Kit) 0 mg IM STAT PRN; Protocol PRN Reason: Hypoglycemia Protocol Hydralazine HCl (Apresoline) 25 mg PO TID [facility] Last Admin: 03/28/19 17:48 Dose: 25 mg Dextrose (Dextrose 5% In Water 1000 Ml) 1,000 mls @ 0 mls/hr IV .Q0M PRN; Protocol PRN Reason: Hypoglycemia Protocol Insulin Human Regular (Novolin R) 0 unit SC [facility]; Protocol Last Admin: 03/29/19 07:09 Dose: Not Given Losartan Potassium (Cozaar) 25 mg PO DAILY [facility] Last Admin: 03/28/19 11:00 Dose: 25 mg Metolazone (Zaroxolyn) 5 mg PO QAM [facility] Last Admin: 03/28/19 11:00 Dose: 5 mg Multivitamins (Hexavitamin) 1 tab PO DAILY [facility] Last Admin: 03/28/19 11:00 Dose: 1 tab Naproxen (Anaprox) 275 mg PO BID [facility] Last Admin: 03/28/19 17:47 Dose: 275 mg Nicotine (Nicoderm Cq) 1 patch TD DAILY [facility] Stop: 04/28/19 23:59 Last Admin: 03/28/19 11:00 Dose: 1 patch Polyethylene Glycol (Miralax) 17 gm PO DAILY [facility] Last Admin: 03/28/19 11:00 Dose: 17 gm Thiamine HCl (Vitamin B1 Tab) 100 mg PO DAILY [facility] Last Admin: 03/28/19 11:00 Dose: 100 mg Trazodone HCl (Desyrel) 100 mg PO HS PRN PRN Reason: Insomnia Last Admin: 03/28/19 00:03 Dose: 100 mg - Labs Labs: 03/27/19 14:27 03/27/19 14:27 PT 12.3 SECONDS (9.7-12.2) H 03/25/19 07:55 INR 1.1 03/25/19 07:55 APTT 38.0 SECONDS (21-34) H 03/25/19 07:55 - Additional Findings Additional findings: - Additional Findings Additional findings: - Constitutional Appears: Non-toxic, No Acute Distress - Head Exam Head Exam: ATRAUMATIC, NORMAL INSPECTION - Eye Exam Additional comments: Right eye exotropia - ENT Exam ENT Exam: Mucous Membranes Moist - Respiratory Exam Respiratory Exam: Clear to Auscultation Bilateral, NORMAL BREATHING PATTERN. absent: Respiratory Distress - Cardiovascular Exam Cardiovascular Exam: Irregularly irregular, +S1, +S2 - GI/Abdominal Exam GI & Abdominal Exam: Soft. absent: Distended, Tenderness - Extremities Exam Extremities Exam: absent: Pedal Edema Additional comments: Left Arm AVF with (+) Thrill; no signs of infection Right Chest Permacath insertion site nontender; no signs of infections - Neurological Exam Neurological Exam: Alert, Awake, Normal Gait, Oriented x3 - Psychiatric Exam Psychiatric exam: Normal Affect, Normal Mood - Skin Skin Exam: Dry, Normal Color, Warm Assessment and Plan - Assessment and Plan (Free Text) Assessment: Patient is a 58 yo female with CKD, HTN, T2DM, and polysubstance use (heroin and cocaine) who presented with leg swelling and abdominal pain. Patient found to have worsening kidney disease and severe constipation. Echo notable for severe pulm HTN. Patient also Patient had L renal biopsy on 03/22- diabetic nephropathy. Patient had AV graft and permacath placed 03/25. Started on HD on 03/26. Plan: ESRD on HD via Right Chest Permacath with maturation of Left Arm AVF pending starting 03/26/19: To undergo third HD today with Dr. Smith F/u with CM for need for either Medicaid or [facility] outpatient HD placement, as well as any michael transportation services that would help patient get to and from HD. To receive 3rd HD with Dr. Smith on 03/29/19. Reiterated that she will need to enlist the help of her family and friends because if she misses her HD she will not only lose her spot for HD, but that her health would decline. Acute decompensated diastolic congestive heart failure (HFpEF), improving CXR: cardiomegaly, L pleural effusion EKG: NSR, PVCs LE Dopplers: no DVT Echo: EF 62%, mod-severe LVH, severe pulm HTN, mod TR CT A/P: Mild CHF suspected. [id number] left and mild right pleural effusions identified. BNP 31,300--> 12,300 Trop negative Monitor on telemetry Fluid restriction 1500 mL Strict Is & Os Daily weights Duoneb Q6H PRN Lasix 40 mg PO daily (8am) Coreg to 12.5 mg PO BID (10am, 6pm) Metolazone 5 mg PO daily (10am) Cardiology consulted ([facility]) Uncontrolled HTN, improving Norvasc 10 mg PO 1x/day at 8 AM Coreg 12.5 mg PO 2x/day at 10 AM and 6 PM Lasix 40 mg PO 1x/day at 8 AM Hydralazine 25 mg PO 3x/day at 10 AM, 2 PM, and 6 PM Cozaar 25 mg PO at 10 AM Atrial Flutter: Continue coreg 12.5 mg PO BID School Cook, Dr. Mckenzie, is ok with Coreg and does recommend Eliquis which was started 03/27/19 Eliquis 5 mg PO BID Patient will require assistance for payment for the Eliquis and she can go to [email or web address] (click on nonvalvular Afib, then click on Cost/Savings/Support for instructions OR may call [phone] for assistance). If for some reason the patient does NOT qualify for Eliquis assistance, patient understands that she would then placed on Coumadin and all that that entails (continued monitoring, diet). Hx of Polysubstance Abuse Upon Discharge will need to be provided with the following: [place] [facility] [phone] for help quitting smoking AA [phone] for help discontinuing her daily beer drinking since the age of 12 For help with Cocaine and Heroin abuse, she will need to go to [email or web address] to help finding meetings near her residence Extensive conversation with patient on 03/28/19 about the dangers of Tobacco, Heroine, Cocaine, and Alcohol and the importance of following up with support groups to increase her chances of abstinence Continue Thiamine, MV, Folic acid Continue Nicotine patch Constipation Continue miralax, colace Hx IDDM2 with neuropathy Continue to hold home Jardiace due to ESRD Continue to monitor blood glucose; well controlled at this time Consult placed for Mobility Architect Manager Nurse Lida at [facility] 03/27/19 to come see patient this coming week to teach patient how to administer insulin and to measure insulin: [place] Cathy placed call on 03/27/19 Continue ASA, ARB Continue Gabapentin for neuropathy; renally dosed 100 mg PO BID Hepatic steatosis, chronic HIV and hepatitis negative Abd US: mild hepatomegaly. Diffuse increased echogenicity in the liver may reflect hepatic steatosis. Nodular contour of the liver could represent cirrho sis. Medical renal disease. Gallbladder is contracted but no cholelithiasis. Mild diffuse dilation of the common bile duct without evidence for choledocholithiasis. CT A/P: Hepatomegaly noted without focal mass or gross intrahepatic biliary duct dilatation. Mild anasarca. Hepatobiliary surgeon consulted ([facility]) Hx Adrenal Adenoma/Mass Outpatient follow up Vitamin D deficiency- suspect 2/2 kidney disease 25-OH vit D <12.5 Vitamin D 50,000 IU Q1WK on 03/20 (Friday) x 8 doses PPX: Pt on Eliquis 5 mg PO daily Pepcid 20 mg PO daily Plan: Pending outpatient HD placement, tolerating HD well. Case discussed with Dr. Sunitha Dhaliwal PGY1 <Dai Helton V - Last Filed: 03/30/19 10:02> Objective - Vital Signs/Intake and Output Vital Signs (last 24 hours): Temp Pulse Resp BP Pulse Ox 98.5 F 61 20 180/70 H 98 03/30/19 07:10 03/30/19 07:34 03/30/19 07:10 03/30/19 09:00 03/30/19 07:10 Intake and Output: 03/30/19 03/30/19 06:59 18:59 Intake Total 300 Balance 300 - Medications Medications: Current Medications Acetaminophen (Tylenol 325mg Tab) 650 mg PO Q6 PRN PRN Reason: Pain, moderate (4-7) Last Admin: 03/28/19 00:03 Dose: 650 mg Albuterol/Ipratropium (Duoneb 3 Mg/0.5 Mg (3 Ml) Ud) 3 ml INH RQ6 PRN PRN Reason: Shortness of Breath Amlodipine Besylate (Norvasc) 10 mg PO Q24H [facility] Last Admin: 03/30/19 08:56 Dose: 10 mg Apixaban (Eliquis) 5 mg PO BID [facility] Last Admin: 03/30/19 08:59 Dose: 5 mg Aspirin (Ecotrin) 81 mg PO DAILY [facility] Last Admin: 03/30/19 09:00 Dose: 81 mg Carvedilol (Coreg) 12.5 mg PO BID [facility] Last Admin: 03/30/19 09:00 Dose: 12.5 mg Dextrose (Dextrose 50% Inj) 0 ml IV STAT PRN; Protocol PRN Reason: Hypoglycemia Protocol Dextrose (Glutose 15) 0 gm PO ONCE PRN; Protocol PRN Reason: Hypoglycemia Protocol Docusate Sodium (Colace) 100 mg PO TID [facility] Last Admin: 03/30/19 08:59 Dose: 100 mg Ergocalciferol (Drisdol 50,000 Intl Units Cap) 1 cap PO Q7D [facility] Stop: 05/05/19 12:01 Last Admin: 03/24/19 15:19 Dose: 1 cap Folic Acid (Folic Acid) 1 mg PO DAILY [facility] Last Admin: 03/30/19 09:02 Dose: 1 mg Furosemide (Lasix) 40 mg PO Q24H [facility] Last Admin: 03/30/19 08:56 Dose: 40 mg Gabapentin (Neurontin) 100 mg PO Q8H [facility] Glucagon (Glucagen Diagnostic Kit) 0 mg IM STAT PRN; Protocol PRN Reason: Hypoglycemia Protocol Hydralazine HCl (Apresoline) 25 mg PO TID [facility] Last Admin: 03/30/19 09:00 Dose: 25 mg Dextrose (Dextrose 5% In Water 1000 Ml) 1,000 mls @ 0 mls/hr IV .Q0M PRN; Protocol PRN Reason: Hypoglycemia Protocol Insulin Human Regular (Novolin R) 0 unit SC [facility]; Protocol Last Admin: 03/30/19 07:30 Dose: Not Given Losartan Potassium (Cozaar) 50 mg PO DAILY [facility] Metolazone (Zaroxolyn) 5 mg PO QAM [facility] Last Admin: 03/30/19 09:02 Dose: 5 mg Multivitamins (Hexavitamin) 1 tab PO DAILY [facility] Last Admin: 03/30/19 08:59 Dose: 1 tab Naproxen (Anaprox Ds) 550 mg PO Q12H PRN PRN Reason: Pain, moderate (4-7) Nicotine (Nicoderm Cq) 1 patch TD DAILY [facility] Stop: 04/28/19 23:59 Last Admin: 03/30/19 08:59 Dose: 1 patch Polyethylene Glycol (Miralax) 17 gm PO DAILY [facility] Last Admin: 03/30/19 09:01 Dose: 17 gm Thiamine HCl (Vitamin B1 Tab) 100 mg PO DAILY [facility] Last Admin: 03/30/19 09:00 Dose: 100 mg Trazodone HCl (Desyrel) 100 mg PO HS PRN PRN Reason: Insomnia Last Admin: 03/29/19 21:16 Dose: 100 mg - Labs Labs: 03/29/19 14:50 03/29/19 14:50 PT 12.3 SECONDS (9.7-12.2) H 03/25/19 07:55 INR 1.1 03/25/19 07:55 APTT 38.0 SECONDS (21-34) H 03/25/19 07:55 Assessment and Plan (1) SUSANNAH (acute kidney injury) Status: Acute (2) CHF (congestive heart failure) Status: Acute (3) Hypertensive urgency Status: Acute (4) CKD (chronic kidney disease), stage III Status: Chronic (5) Proteinuria Status: Chronic (6) Prophylactic measure Status: Acute Attending/Attestation - Attestation I have personally seen and examined this patient.: Yes I have fully participated in the care of the patient.: Yes I have reviewed all pertinent clinical information, including history, physical exam and plan: Yes Notes (Text): This is a late computer entry for Mar 29 2019. Patient seen, examined case discussed with lpn medical assistant. Patient underwent third dialysis afternoon. Patient blood pressure normal during the day however in the evenings and control as nurse to begin did improve status post dialysis. Patient is on Eliquis 5 mg p.o. twice daily for atrial flutter. Patient of the leg edema has improved since initially on admission and reports she has lost about 30lbs. I did re-emphasized fluid restriction in light of heart failure and kidney problems. Discussed renal biopsy results with the patient noted for related to both her diabetes and hypertension which was suspected. We did speak with case and social to initiate outpatient dialysis placement. Patient presently reviewed the control includes Lasix, hydralazine, Cozaar, and Coreg. I also did review with the patient that she can call the [employer] patient assistance line. She will be able to get her anticoagulation. Again patient was strongly counseled against her substance abuse including her heroine, her cocaine, and cigarette use. Patient noted she is having small bowel movement however she is also noted that this is likely opiate induced constipation.
[2019-03-29] MEDS: Naproxen 275 mg Tab PO SCH (09:30)
[2019-03-29] MEDS: Multiple Vitamins Tab PO SCH (09:33)
[2019-03-29] MEDS: metOLazone 5 MG TAB PO SCH (09:34)
[2019-03-29] MEDS: POLYETHYLENE GLYCOL 3350 17 GM/Dose PACKET PO SCH (09:34)
--- NOTE | 2019-03-29 14:20 | CARD ---
APPROVED REPORT Date of service: 03/25/2019 EKG Measurement Heart [id number] 280P [id number] <Conclusion> Sinus tachycardia with 1st degree AV block T wave abnormality, consider inferior ischemia Abnormal ECG
--- NOTE | 2019-03-29 14:37 | CARD ---
APPROVED REPORT Date of service: 03/25/2019 EKG Measurement Heart [id number] <Conclusion> Sinus rhythm with premature atrial complexes T wave abnormality, consider lateral ischemia Abnormal ECG
[2019-03-29 15:02] LABS: BASO # 0.1 K/uL (0.0-0.2); BASO % 1.4 % (0.0-2.0); EOS # 0.4 K/uL (0.0-0.7); HEMOGLOBIN 11.8 g/dL (11.0-16.0); LYMPH % 12.4 % (20.0-40.0); MEAN CELL VOLUME 94.7 fL (81.0-99.0); MEAN CORPUSCULAR HEMOGLOBIN 31.3 pg (27.0-31.0); MEAN CORPUSCULAR HGB CONC 33.1 g/dL (33.0-37.0); MONO # 0.7 K/uL (0.0-0.8); MONO % 7.8 % (0.0-10.0); NEUT # 6.1 K/uL (1.8-7.0); NEUT % 73.4 % (50.0-75.0); RBC 3.78 Mil/uL (3.80-5.20); RED CELL DISTRIBUTION WIDTH 15.4 % (11.5-14.5); WHITE BLOOD COUNT 8.3 K/uL (4.8-10.8)
[2019-03-29 15:29] LABS: ALB/GLOB RATIO 1.2 (1.0-2.1); ALBUMIN 3.6 g/dL (3.5-5.0); CALCIUM 9.4 mg/dl (8.6-10.4)
--- NOTE | 2019-03-29 19:34 | CP.PCM.PN ---
Subjective - Date & Time of Evaluation Date of Evaluation: 03/29/19 Time of Evaluation: 13:00 - Subjective Subjective: Patient reports feeling well; breathing ok; still with pain involving AVG arm; not urinating much; Objective - Vital Signs/Intake and Output Vital Signs (last 24 hours): Temp Pulse Resp BP Pulse Ox 98.5 F 93 H 20 186/100 H 95 03/29/19 18:31 03/29/19 18:31 03/29/19 18:31 03/29/19 18:41 03/29/19 18:31 - Medications Medications: Current Medications Acetaminophen (Tylenol 325mg Tab) 650 mg PO Q6 PRN PRN Reason: Pain, moderate (4-7) Last Admin: 03/28/19 00:03 Dose: 650 mg Albuterol/Ipratropium (Duoneb 3 Mg/0.5 Mg (3 Ml) Ud) 3 ml INH RQ6 PRN PRN Reason: Shortness of Breath Amlodipine Besylate (Norvasc) 10 mg PO Q24H [facility] Last Admin: 03/29/19 11:00 Dose: Not Given Apixaban (Eliquis) 5 mg PO BID [facility] Last Admin: 03/29/19 18:40 Dose: 5 mg Aspirin (Ecotrin) 81 mg PO DAILY [facility] Last Admin: 03/29/19 09:29 Dose: 81 mg Carvedilol (Coreg) 12.5 mg PO BID [facility] Last Admin: 03/29/19 18:41 Dose: 12.5 mg Dextrose (Dextrose 50% Inj) 0 ml IV STAT PRN; Protocol PRN Reason: Hypoglycemia Protocol Dextrose (Glutose 15) 0 gm PO ONCE PRN; Protocol PRN Reason: Hypoglycemia Protocol Docusate Sodium (Colace) 100 mg PO TID [facility] Last Admin: 03/29/19 18:40 Dose: 100 mg Ergocalciferol (Drisdol 50,000 Intl Units Cap) 1 cap PO Q7D [facility] Stop: 05/05/19 12:01 Last Admin: 03/24/19 15:19 Dose: 1 cap Folic Acid (Folic Acid) 1 mg PO DAILY [facility] Last Admin: 03/29/19 09:33 Dose: 1 mg Furosemide (Lasix) 40 mg PO Q24H [facility] Last Admin: 03/29/19 09:33 Dose: 40 mg Gabapentin (Neurontin) 100 mg PO BID [facility] Last Admin: 03/29/19 18:43 Dose: 100 mg Glucagon (Glucagen Diagnostic Kit) 0 mg IM STAT PRN; Protocol PRN Reason: Hypoglycemia Protocol Hydralazine HCl (Apresoline) 25 mg PO TID [facility] Last Admin: 03/29/19 18:40 Dose: 25 mg Dextrose (Dextrose 5% In Water 1000 Ml) 1,000 mls @ 0 mls/hr IV .Q0M PRN; Protocol PRN Reason: Hypoglycemia Protocol Insulin Human Regular (Novolin R) 0 unit SC ACHS [facility]; Protocol Last Admin: 03/29/19 16:30 Dose: Not Given Losartan Potassium (Cozaar) 25 mg PO DAILY [facility] Last Admin: 03/29/19 09:34 Dose: 25 mg Metolazone (Zaroxolyn) 5 mg PO QAM [facility] Last Admin: 03/29/19 09:34 Dose: 5 mg Multivitamins (Hexavitamin) 1 tab PO DAILY [facility] Last Admin: 03/29/19 09:33 Dose: 1 tab Nicotine (Nicoderm Cq) 1 patch TD DAILY [facility] Stop: 04/28/19 23:59 Last Admin: 03/29/19 09:34 Dose: 1 patch Polyethylene Glycol (Miralax) 17 gm PO DAILY [facility] Last Admin: 03/29/19 09:34 Dose: 17 gm Thiamine HCl (Vitamin B1 Tab) 100 mg PO DAILY [facility] Last Admin: 03/29/19 09:33 Dose: 100 mg Trazodone HCl (Desyrel) 100 mg PO HS PRN PRN Reason: Insomnia Last Admin: 03/28/19 00:03 Dose: 100 mg - Labs Labs: 03/29/19 14:50 03/29/19 14:50 PT 12.3 SECONDS (9.7-12.2) H 03/25/19 07:55 INR 1.1 03/25/19 07:55 APTT 38.0 SECONDS (21-34) H 03/25/19 07:55 - Constitutional Appears: Non-toxic, No Acute Distress - Eye Exam Eye Exam: Normal appearance. absent: Scleral icterus - ENT Exam ENT Exam: Mucous Membranes Moist - Respiratory Exam Respiratory Exam: Clear to Ausculation Bilateral. absent: Respiratory Distress - Cardiovascular Exam Cardiovascular Exam: RRR, +S1, +S2 - GI/Abdominal Exam GI & Abdominal Exam: Soft. absent: Distended, Tenderness - Extremities Exam Additional comments: moderate leg edema b/l - Neurological Exam Neurological Exam: Alert, Awake - Psychiatric Exam Psychiatric exam: Normal Mood. absent: Agitated - Skin Skin Exam: Warm. absent: Cyanosis Assessment and Plan (1) SUSANNAH (acute kidney injury) Assessment & Plan: Worsening renal function, progressing to ESRD; HD today, will keep on MWF schedule, 1.5L UF goal today; Status: Acute (2) Hypertensive chronic kidney disease Assessment & Plan: BP elevated, continue current meds, will benefit from UF on HD; Status: Acute (3) CHF (congestive heart failure) Assessment & Plan: Acute decompensated diastolic CHF, symptomatically improved; still signficant leg edema; continue current diuretics; Status: Acute (4) Proteinuria Assessment & Plan: Continue losartan; Status: Chronic
--- NOTE | 2019-03-30 06:59 | CP.PCM.PN ---
<Jamey Dhaliwal - Last Filed: 03/30/19 15:00> Subjective - Date & Time of Evaluation Date of Evaluation: 03/30/19 Time of Evaluation: 09:00 - Subjective Subjective: PGY1 Medicine progress note for Dr. Helton Pt seen and examined at bedside. Pt is resting comfortably. Endorses midsternal chest pain for the past two days, intermittent in nature and pt unable to describe when it is worse or better. Additionally, endorses foot camps, described as tight muscles. Pt is on gabapentin, and her dose is lower in the hospital due to ESRD on HD. Pt does not ambulate as well as she should, and a PT consult will be placed. Instructed pt in certain stretches that can help. Denies fever, chills, sob, abdominal pain, n/v/d, headache, dizziness, hematochezia, melena, visual changes, dizziness, lightheadedness. Again, we discussed thee alf consequences of illicit drug use and their effects on the body. I continued to stress the importance of adhering to medication regimen and dialysis as noncompliance can lead to worsening of her health and potentially . Pt tolerating HD well yesterday, but reports some fatigue. Objective - Vital Signs/Intake and Output Vital Signs (last 24 hours): Temp Pulse Resp BP Pulse Ox 97.9 F 62 20 183/76 H 99 03/30/19 04:00 03/30/19 04:06 03/30/19 04:00 03/30/19 04:00 03/30/19 04:00 Intake and Output: 03/29/19 03/30/19 18:59 06:59 Intake Total 400 300 Balance 400 300 - Medications Medications: Current Medications Acetaminophen (Tylenol 325mg Tab) 650 mg PO Q6 PRN PRN Reason: Pain, moderate (4-7) Last Admin: 03/28/19 00:03 Dose: 650 mg Albuterol/Ipratropium (Duoneb 3 Mg/0.5 Mg (3 Ml) Ud) 3 ml INH RQ6 PRN PRN Reason: Shortness of Breath Amlodipine Besylate (Norvasc) 10 mg PO Q24H [facility] Last Admin: 03/29/19 11:00 Dose: Not Given Apixaban (Eliquis) 5 mg PO BID [facility] Last Admin: 03/29/19 18:40 Dose: 5 mg Aspirin (Ecotrin) 81 mg PO DAILY [facility] Last Admin: 03/29/19 09:29 Dose: 81 mg Carvedilol (Coreg) 12.5 mg PO BID [facility] Last Admin: 03/29/19 18:41 Dose: 12.5 mg Dextrose (Dextrose 50% Inj) 0 ml IV STAT PRN; Protocol PRN Reason: Hypoglycemia Protocol Dextrose (Glutose 15) 0 gm PO ONCE PRN; Protocol PRN Reason: Hypoglycemia Protocol Docusate Sodium (Colace) 100 mg PO TID [facility] Last Admin: 03/29/19 18:40 Dose: 100 mg Ergocalciferol (Drisdol 50,000 Intl Units Cap) 1 cap PO Q7D [facility] Stop: 05/05/19 12:01 Last Admin: 03/24/19 15:19 Dose: 1 cap Folic Acid (Folic Acid) 1 mg PO DAILY [facility] Last Admin: 03/29/19 09:33 Dose: 1 mg Furosemide (Lasix) 40 mg PO Q24H [facility] Last Admin: 03/29/19 09:33 Dose: 40 mg Gabapentin (Neurontin) 100 mg PO BID [facility] Last Admin: 03/29/19 18:43 Dose: 100 mg Glucagon (Glucagen Diagnostic Kit) 0 mg IM STAT PRN; Protocol PRN Reason: Hypoglycemia Protocol Hydralazine HCl (Apresoline) 25 mg PO TID [facility] Last Admin: 03/29/19 18:40 Dose: 25 mg Dextrose (Dextrose 5% In Water 1000 Ml) 1,000 mls @ 0 mls/hr IV .Q0M PRN; Protocol PRN Reason: Hypoglycemia Protocol Insulin Human Regular (Novolin R) 0 unit SC [facility]; Protocol Last Admin: 03/29/19 21:15 Dose: Not Given Losartan Potassium (Cozaar) 25 mg PO DAILY [facility] Last Admin: 03/29/19 09:34 Dose: 25 mg Metolazone (Zaroxolyn) 5 mg PO QAM [facility] Last Admin: 03/29/19 09:34 Dose: 5 mg Multivitamins (Hexavitamin) 1 tab PO DAILY [facility] Last Admin: 03/29/19 09:33 Dose: 1 tab Nicotine (Nicoderm Cq) 1 patch TD DAILY [facility] Stop: 04/28/19 23:59 Last Admin: 03/29/19 09:34 Dose: 1 patch Polyethylene Glycol (Miralax) 17 gm PO DAILY [facility] Last Admin: 03/29/19 09:34 Dose: 17 gm Thiamine HCl (Vitamin B1 Tab) 100 mg PO DAILY [facility] Last Admin: 03/29/19 09:33 Dose: 100 mg Trazodone HCl (Desyrel) 100 mg PO HS PRN PRN Reason: Insomnia Last Admin: 03/29/19 21:16 Dose: 100 mg - Labs Labs: 03/29/19 14:50 03/29/19 14:50 PT 12.3 SECONDS (9.7-12.2) H 03/25/19 07:55 INR 1.1 03/25/19 07:55 APTT 38.0 SECONDS (21-34) H 03/25/19 07:55 - Additional Findings Additional findings: - Constitutional Appears: Non-toxic, No Acute Distress - Head Exam Head Exam: ATRAUMATIC, NORMAL INSPECTION - Eye Exam Additional comments: Right eye exotropia - ENT Exam ENT Exam: Mucous Membranes Moist - Respiratory Exam Respiratory Exam: Clear to Auscultation Bilateral, NORMAL BREATHING PATTERN. absent: Respiratory Distress - Cardiovascular Exam Cardiovascular Exam: Irregularly irregular, +S1, +S2. (+) reproducible midsternal chest pain - GI/Abdominal Exam GI & Abdominal Exam: Soft. absent: Distended, Tenderness - Extremities Exam Extremities Exam: (+) hypertonicity and tenderness bilateral achilles. absent: Pedal Edema Additional comments: Left Arm AVF with (+) Thrill; no signs of infection Right Chest Permacath insertion site nontender; no signs of infections - Neurological Exam Neurological Exam: Alert, Awake, Normal Gait, Oriented x3 - Psychiatric Exam Psychiatric exam: Normal Affect, Normal Mood - Skin Skin Exam: Dry, Normal Color, Warm Assessment and Plan - Assessment and Plan (Free Text) Assessment: Patient is a 58 yo female with CKD, HTN, T2DM, and polysubstance use (heroin and cocaine) who presented with leg swelling and abdominal pain. Patient found to have worsening kidney disease and severe constipation. Echo notable for severe pulm HTN. Patient also Patient had L renal biopsy on 03/22- diabetic nephropathy. Patient had AV graft and permacath placed 03/25. Started on HD on 03/26. Plan: ESRD on HD via Right Chest Permacath with maturation of Left Arm AVF pending starting 03/26/19: Kidney biopsy pathology shows diabetic nephropathy, class IIb with segmental glomerulosclerosis. To undergo third HD today with Dr. Smith F/u with CM for need for either Medicaid or [facility] outpatient HD placement, as well as any michael transportation services that would help patient get to and from HD. To receive 3rd HD with Dr. Smith on 03/29/19. Reiterated that she will need to enlist the help of her family and friends because if she misses her HD she will not only lose her spot for HD, but that her health would decline. Intermittent chest pain, 03/30/19 CXR shows no active disease TAISHA ordered STAT EKG shows NSR at 60, nonspecific STTW changes Pt already on BB, ASA Continue to monitor and follow up with TAISHA Acute decompensated diastolic congestive heart failure (HFpEF), improving CXR: cardiomegaly, L pleural effusion EKG: NSR, PVCs LE Dopplers: no DVT Echo: EF 62%, mod-severe LVH, severe pulm HTN, mod TR CT A/P: Mild CHF suspected. [id number] left and mild right pleural effusions identified. BNP 31,300--> 12,300 Trop negative Monitor on telemetry Fluid restriction 1500 mL Strict Is & Os Daily weights Duoneb Q6H PRN Lasix 40 mg PO daily (8am) Coreg to 12.5 mg PO BID (10am, 6pm) Metolazone 5 mg PO daily (10am) Cardiology consulted (Randa) Uncontrolled HTN, improving Norvasc 10 mg PO 1x/day at 8 AM Coreg 12.5 mg PO 2x/day at 10 AM and 6 PM Lasix 40 mg PO 1x/day at 8 AM Hydralazine 25 mg PO 3x/day at 10 AM, 2 PM, and 6 PM Cozaar 25 mg PO at 10 AM Atrial Flutter: Continue coreg 12.5 mg PO BID Oral Communication Instructor, Dr. Mckenzie, is ok with Coreg and does recommend Eliquis which was started 03/27/19 Eliquis 5 mg PO BID Patient will require assistance for payment for the Eliquis and she can go to [email or web address] (click on nonvalvular Afib, then click on Cost/Savings/Support for instructions OR may call [phone] for assistance). If for some reason the patient does NOT qualify for Eliquis assistance, patient understands that she would then placed on Coumadin and all that that entails (continued monitoring, diet). Hx of Polysubstance Abuse Upon Discharge will need to be provided with the following: [place] [employer] [phone] for help quitting smoking AA [phone] for help discontinuing her daily beer drinking since the age of 12 For help with Cocaine and Heroin abuse, she will need to go to www.[email or web address].org to help finding meetings near her residence Extensive conversation with patient on 03/28/19 about the dangers of Tobacco, Heroine, Cocaine, and Alcohol and the importance of following up with support groups to increase her chances of abstinence Continue Thiamine, MV, Folic acid Continue Nicotine patch Constipation Continue miralax, colace Hx IDDM2 with neuropathy Continue to hold home Jardiace due to ESRD Continue to monitor blood glucose; well controlled at this time Consult placed for Business Quality Assurance Analyst Nurse [facility] 03/27/19 to come see patient this coming week to teach patient how to administer insulin and to measure insulin: Scaleman Cathy placed call on 03/27/19 Continue ASA, ARB Continue Gabapentin for neuropathy; renally dosed 100 mg PO BID Hepatic steatosis, chronic HIV and hepatitis negative Abd US: mild hepatomegaly. Diffuse increased echogenicity in the liver may reflect hepatic steatosis. Nodular contour of the liver could represent cirrhosis. Medical renal disease. Gallbladder is contracted but no cholelithiasis. Mild diffuse dilation of the common bile duct without evidence for choledocholithiasis. CT A/P: Hepatomegaly noted without focal mass or gross intrahepatic biliary duct dilatation. Mild anasarca. Hepatobiliary surgeon consulted (Wilson) Hx Adrenal Adenoma/Mass Outpatient follow up Vitamin D deficiency- suspect 2/2 kidney disease 25-OH vit D <12.5 Vitamin D 50,000 IU Q1WK on 03/20 (Friday) x 8 doses PPX: Pt on Eliquis 5 mg PO BID Pepcid 20 mg PO daily PT will eval and treat pt for foot pain Plan: Pending outpatient HD placement, tolerating HD well. F/u chest pain work up; EKG, CXR wnl at this time. Pt is on telemonitor. Case discussed with Dr. Sunitha Dhaliwal PGY1 <Dai Helton V - Last Filed: 04/02/19 22:16> Objective - Vital Signs/Intake and Output Vital Signs (last 24 hours): Temp Pulse Resp BP Pulse Ox 98.7 F 97 H 20 150/60 99 04/02/19 15:00 04/02/19 15:00 04/02/19 15:00 04/02/19 17:24 04/02/19 15:00 - Medications Medications: Current Medications Acetaminophen (Tylenol 325mg Tab) 650 mg PO Q6 PRN PRN Reason: Pain, moderate (4-7) Last Admin: 04/02/19 21:20 Dose: 650 mg Albuterol/Ipratropium (Duoneb 3 Mg/0.5 Mg (3 Ml) Ud) 3 ml INH RQ6 PRN PRN Reason: Shortness of Breath Amlodipine Besylate (Norvasc) 10 mg PO Q24H [facility] Last Admin: 04/02/19 09:00 Dose: 10 mg Apixaban (Eliquis) 5 mg PO BID [facility] Last Admin: 04/02/19 17:26 Dose: 5 mg Artificial Tears (Artificial Tears) 0 ml OU BID [facility] Last Admin: 04/02/19 17:26 Dose: 2 drop Ascorbic Acid (Vitamin C 500 Mg Tab) 500 mg PO DAILY [facility] Last Admin: 04/02/19 10:17 Dose: 500 mg Aspirin (Ecotrin) 81 mg PO DAILY [facility] Last Admin: 04/02/19 10:20 Dose: 81 mg Carvedilol (Coreg) 12.5 mg PO BID [facility] Last Admin: 04/02/19 17:24 Dose: 12.5 mg Dextrose (Dextrose 50% Inj) 0 ml IV STAT PRN; Protocol PRN Reason: Hypoglycemia Protocol Dextrose (Glutose 15) 0 gm PO ONCE PRN; Protocol PRN Reason: Hypoglycemia Protocol Docusate Sodium (Colace) 100 mg PO TID [facility] Last Admin: 03/31/19 10:08 Dose: Not Given Ergocalciferol (Drisdol 50,000 Intl Units Cap) 1 cap PO Q7D [facility] Stop: 05/05/19 12:01 Last Admin: 03/31/19 11:15 Dose: 1 cap Folic Acid (Folic Acid) 1 mg PO DAILY [facility] Last Admin: 04/02/19 10:17 Dose: 1 mg Gabapentin (Neurontin) 100 mg PO Q8H [facility] Last Admin: 04/02/19 21:23 Dose: 100 mg Glucagon (Glucagen Diagnostic Kit) 0 mg IM STAT PRN; Protocol PRN Reason: Hypoglycemia Protocol Hydralazine HCl (Apresoline) 50 mg PO Q8H [facility] Last Admin: 03/31/19 08:25 Dose: 50 mg Insulin Human Regular (Novolin R) 0 unit SC [facility]; Protocol Last Admin: 04/02/19 21:45 Dose: Not Given Losartan Potassium (Cozaar) 50 mg PO DAILY [facility] Last Admin: 04/02/19 10:20 Dose: 50 mg Metolazone (Zaroxolyn) 5 mg PO QAM [facility] Last Admin: 04/02/19 10:18 Dose: 5 mg Multivitamins (Hexavitamin) 1 tab PO DAILY [facility] Last Admin: 04/02/19 10:17 Dose: 1 tab Nicotine (Nicoderm Cq) 1 patch TD DAILY [facility] Stop: 04/28/19 23:59 Last Admin: 04/02/19 10:20 Dose: 1 patch Polyethylene Glycol (Miralax) 17 gm PO DAILY [facility] Last Admin: 03/30/19 10:08 Dose: Not Given Thiamine HCl (Vitamin B1 Tab) 100 mg PO DAILY [facility] Last Admin: 04/02/19 10:15 Dose: 100 mg Torsemide (Demadex) 20 mg PO DAILY [facility] Trazodone HCl (Desyrel) 100 mg PO HS PRN PRN Reason: Insomnia Last Admin: 04/02/19 21:21 Dose: 100 mg - Labs Labs: 04/01/19 14:10 04/01/19 14:10 PT 12.3 SECONDS (9.7-12.2) H 03/25/19 07:55 INR 1.1 03/25/19 07:55 APTT 38.0 SECONDS (21-34) H 03/25/19 07:55 Assessment and Plan (1) SUSANNAH (acute kidney injury) Status: Acute (2) CHF (congestive heart failure) Status: Acute (3) Hypertensive urgency Status: Acute (4) CKD (chronic kidney disease), stage III Status: Chronic (5) Proteinuria Status: Chronic (6) Prophylactic measure Status: Acute Attending/Attestation - Attestation I have personally seen and examined this patient.: Yes I have fully participated in the care of the patient.: Yes I have reviewed all pertinent clinical information, including history, physical exam and plan: Yes
[2019-03-30] MEDS: (Novolin R) Insulin Human Regular 100 units/ml vial SC SCH ×4 (07:30→21:18)
[2019-03-30] MEDS: Multiple Vitamins Tab PO SCH (08:59)
[2019-03-30] MEDS: POLYETHYLENE GLYCOL 3350 17 GM/Dose PACKET PO SCH ×2 (09:01→10:08)
[2019-03-30] MEDS: metOLazone 5 MG TAB PO SCH (09:02)
[2019-03-30] MEDS ORDERED: Naproxen 550 mg Tab PO PRN (09:40)
--- NOTE | 2019-03-30 13:32 | RAD ---
Date of service: 03/30/2019 HISTORY: CP COMPARISON: 03/25/2019 TECHNIQUE: 1 view obtained. FINDINGS: LUNGS: No active pulmonary disease. PLEURA: No significant pleural effusion identified, no pneumothorax apparent. CARDIOVASCULAR: No aortic atherosclerotic calcification present. Right tunneled central venous dialysis catheter. No congestive change OSSEOUS STRUCTURES: No significant abnormalities. VISUALIZED UPPER ABDOMEN: Normal. OTHER FINDINGS: None. IMPRESSION: No active disease.
[2019-03-30 14:26] LABS: HEMOGLOBIN 12.2 g/dL (11.0-16.0); MEAN CELL VOLUME 94.2 fL (81.0-99.0); MEAN CORPUSCULAR HEMOGLOBIN 31.6 pg (27.0-31.0); MEAN CORPUSCULAR HGB CONC 33.5 g/dL (33.0-37.0); MEAN PLATELET VOLUME 10.2 fL (7.2-11.7); RBC 3.88 Mil/uL (3.80-5.20); WHITE BLOOD COUNT 7.5 K/uL (4.8-10.8)
[2019-03-30 15:19] LABS: ALB/GLOB RATIO 1.2 (1.0-2.1); ALBUMIN 3.6 g/dL (3.5-5.0); CALCIUM 9.1 mg/dl (8.6-10.4)
[2019-03-30 16:03] LABS: CK-MB 0.74 ng/mL (0.0-3.38); TROPONIN I 0.093 ng/mL (0.00-0.120)
[2019-03-31] MEDS: (Novolin R) Insulin Human Regular 100 units/ml vial SC SCH ×4 (08:00→21:01)
--- NOTE | 2019-03-31 08:19 | CP.PCM.PN ---
<Jamey Dhaliwal - Last Filed: 03/31/19 10:36> Subjective - Date & Time of Evaluation Date of Evaluation: 03/31/19 Time of Evaluation: 08:15 - Subjective Subjective: PGY1 Medicine progress note for Dr. Helton Pt seen and examined at bedside. Pt is resting comfortably. No acute events overnight. Reports resolution of chest discomfort from yesterday. Continues to endorse chronic lower extremity cramps/soreness. Endorses loose bowel movements, nonbloody. Endorses dry cough. Denies fever, chills, chest pain, sob, abdominal pain, n/v, headache, dizziness, hematochezia, melena, visual changes, dizziness, lightheadedness. Complaining of diffuse weakness. Again, we discussed the terminal operator consequences of illicit drug use and their effects on the body. I continued to stress the importance of adhering to medication regimen and dialysis as noncompliance can lead to worsening of her health and potentially . Pt to go for dialysis today. Objective - Vital Signs/Intake and Output Vital Signs (last 24 hours): Temp Pulse Resp BP Pulse Ox 98.1 F 62 20 189/78 H 100 03/31/19 07:00 03/31/19 07:16 03/31/19 07:00 03/31/19 07:00 03/31/19 07:00 Intake and Output: 03/31/19 03/31/19 06:59 18:59 Intake Total 300 240 Balance 300 240 - Medications Medications: Current Medications Acetaminophen (Tylenol 325mg Tab) 650 mg PO Q6 PRN PRN Reason: Pain, moderate (4-7) Last Admin: 03/31/19 05:01 Dose: 650 mg Albuterol/Ipratropium (Duoneb 3 Mg/0.5 Mg (3 Ml) Ud) 3 ml INH RQ6 PRN PRN Reason: Shortness of Breath Amlodipine Besylate (Norvasc) 10 mg PO Q24H [facility] Last Admin: 03/30/19 08:56 Dose: 10 mg Apixaban (Eliquis) 5 mg PO BID [facility] Last Admin: 03/30/19 19:04 Dose: 5 mg Aspirin (Ecotrin) 81 mg PO DAILY [facility] Last Admin: 03/30/19 09:00 Dose: 81 mg Carvedilol (Coreg) 12.5 mg PO BID [facility] Last Admin: 03/30/19 19:04 Dose: 12.5 mg Dextrose (Dextrose 50% Inj) 0 ml IV STAT PRN; Protocol PRN Reason: Hypoglycemia Protocol Dextrose (Glutose 15) 0 gm PO ONCE PRN; Protocol PRN Reason: Hypoglycemia Protocol Docusate Sodium (Colace) 100 mg PO TID [facility] Last Admin: 03/30/19 19:01 Dose: Not Given Ergocalciferol (Drisdol 50,000 Intl Units Cap) 1 cap PO Q7D [facility] Stop: 05/05/19 12:01 Last Admin: 03/24/19 15:19 Dose: 1 cap Folic Acid (Folic Acid) 1 mg PO DAILY [facility] Last Admin: 03/30/19 09:02 Dose: 1 mg Furosemide (Lasix) 40 mg PO Q24H [facility] Last Admin: 03/30/19 08:56 Dose: 40 mg Gabapentin (Neurontin) 100 mg PO Q8H [facility] Last Admin: 03/31/19 06:33 Dose: 100 mg Glucagon (Glucagen Diagnostic Kit) 0 mg IM STAT PRN; Protocol PRN Reason: Hypoglycemia Protocol Hydralazine HCl (Apresoline) 50 mg PO Q8H [facility] Dextrose (Dextrose 5% In Water 1000 Ml) 1,000 mls @ 0 mls/hr IV .Q0M PRN; Protocol PRN Reason: Hypoglycemia Protocol Insulin Human Regular (Novolin R) 0 unit SC ACHS [facility]; Protocol Last Admin: 03/30/19 21:18 Dose: Not Given Losartan Potassium (Cozaar) 50 mg PO DAILY [facility] Last Admin: 03/30/19 13:13 Dose: 50 mg Metolazone (Zaroxolyn) 5 mg PO QAM [facility] Last Admin: 03/30/19 09:02 Dose: 5 mg Multivitamins (Hexavitamin) 1 tab PO DAILY [facility] Last Admin: 03/30/19 08:59 Dose: 1 tab Naproxen (Anaprox Ds) 550 mg PO Q12H PRN PRN Reason: Pain, moderate (4-7) Last Admin: 03/30/19 10:06 Dose: 550 mg Nicotine (Nicoderm Cq) 1 patch TD DAILY [facility] Stop: 04/28/19 23:59 Last Admin: 03/30/19 08:59 Dose: 1 patch Polyethylene Glycol (Miralax) 17 gm PO DAILY [facility] Last Admin: 03/30/19 10:08 Dose: Not Given Thiamine HCl (Vitamin B1 Tab) 100 mg PO DAILY [facility] Last Admin: 03/30/19 09:00 Dose: 100 mg Trazodone HCl (Desyrel) 100 mg PO HS PRN PRN Reason: Insomnia Last Admin: 03/29/19 21:16 Dose: 100 mg - Labs Labs: 03/30/19 14:22 03/30/19 14:22 PT 12.3 SECONDS (9.7-12.2) H 03/25/19 07:55 INR 1.1 03/25/19 07:55 APTT 38.0 SECONDS (21-34) H 03/25/19 07:55 - Additional Findings Additional findings: - Constitutional Appears: Non-toxic, No Acute Distress - Head Exam Head Exam: ATRAUMATIC, NORMAL INSPECTION - Eye Exam Additional comments: Right eye exotropia - ENT Exam ENT Exam: Mucous Membranes Dry - Respiratory Exam Respiratory Exam: Clear to Auscultation Bilateral, NORMAL BREATHING PATTERN. absent: Respiratory Distress - Cardiovascular Exam Cardiovascular Exam: Irregularly irregular, +S1, +S2. - GI/Abdominal Exam GI & Abdominal Exam: Soft. absent: Distended, Tenderness - Extremities Exam Extremities Exam: (+) hypertonicity and tenderness bilateral achilles. absent: Pedal Edema Additional comments: Left Arm AVF with (+) Thrill; no signs of infection Right Chest Permacath insertion site nontender; no signs of infections - Neurological Exam Neurological Exam: Alert, Awake, Normal Gait, Oriented x3. CN2-12 grossly intact. 5/5 strength in bilateral upper and lower extremities. - Psychiatric Exam Psychiatric exam: Normal Affect, Normal Mood - Skin Skin Exam: Dry, Normal Color, Warm Assessment and Plan - Assessment and Plan (Free Text) Assessment: Patient is a 58 yo female with CKD, HTN, T2DM, and polysubstance use (heroin and cocaine) who presented with leg swelling and abdominal pain. Patient found to have worsening kidney disease and severe constipation. Echo notable for severe pulm HTN. Patient also Patient had L renal biopsy on 03/22- diabetic nephropathy. Patient had AV graft and permacath placed 03/25. Started on HD on 03/26. Plan: ESRD on HD via Right Chest Permacath with maturation of Left Arm AVF pending starting 03/26/19: Kidney biopsy pathology shows diabetic nephropathy, class IIb with segmental glomerulosclerosis. To undergo fourth HD today with Dr. Smith Reiterated that she will need to enlist the help of her family and friends because if she misses her HD she will not only lose her spot for HD, but that her health would decline. F/u with CM for need for either Medicaid or [facility] outpatient HD placement, as well as any michael transportation services that would help patient get to and from HD. Case discussed with Dr. Smith, who recommends gentle hydration for 500 cc NS due to dehydration. Will have Dialysis later in the afternoon. Intermittent chest pain, 03/30/19; resolved CXR shows no active disease Troponin is 0.0930 EKG shows NSR at 60, nonspecific STTW changes Continue to monitor Nonproductive Cough Afebrile, no leukocytosis CXR shows no acute changes Vitamin C 500 mg PO once daily Acute decompensated diastolic congestive heart failure (HFpEF), improving CXR: cardiomegaly, L pleural effusion EKG: NSR, PVCs LE Dopplers: no DVT Echo: EF 62%, mod-severe LVH, severe pulm HTN, mod TR CT A/P: Mild CHF suspected. [id number]-nqrdpulo left and mild right pleural effusions identified. BNP 31,300--> 12,300 Trop negative Monitor on telemetry Fluid restriction 1500 mL Strict Is & Os Daily weights Duoneb Q6H PRN Lasix 40 mg PO daily (8am) Coreg to 12.5 mg PO BID (10am, 6pm) Metolazone 5 mg PO daily (10am) Cardiology consulted (Randa) Uncontrolled HTN, improving Norvasc 10 mg PO 1x/day at 8 AM Coreg 12.5 mg PO 2x/day at 10 AM and 6 PM Lasix 40 mg PO 1x/day at 8 AM Hydralazine 25 mg PO 3x/day at 10 AM, 2 PM, and 6 PM Cozaar 25 mg PO at 10 AM Atrial Flutter: Continue coreg 12.5 mg PO BID Snowboard Designer, Dr. Mckenzie, is ok with Coreg and does recommend Eliquis which was started 03/27/19 Eliquis 5 mg PO BID Patient will require assistance for payment for the Eliquis and she can go to [email or web address] (click on nonvalvular Afib, then click on Cost/Savings/Support for instructions OR may call [phone] for assistance). If for some reason the patient does NOT qualify for Eliquis assistance, patient understands that she would then placed on Coumadin and all that that entails (continued monitoring, diet). Hx of Polysubstance Abuse Upon Discharge will need to be provided with the following: [place] [employer] [phone] for help quitting smoking AA [phone] for help discontinuing her daily beer drinking since the age of 12 For help with Cocaine and Heroin abuse, she will need to go to [email or web address] or Steal to help finding meetings near her residence Extensive conversation with patient on 03/28/19 about the dangers of Tobacco, Heroine, Cocaine, and Alcohol and the importance of following up with support groups to increase her chances of abstinence Continue Thiamine, MV, Folic acid Continue Nicotine patch Constipation, resolved Colace, Miralax on hold due to loose bowel movements Hx IDDM2 with neuropathy Continue to hold home Jardiance due to ESRD Continue to monitor blood glucose; well controlled at this time Consult placed for Painter Decorator Nurse [facility] 03/27/19 to come see patient this coming week to teach patient how to administer insulin and to measure insulin: [place] Cathy placed call on 03/27/19 Continue ASA, ARB Continue Gabapentin for neuropathy; renally dosed 100 mg PO BID Hepatic steatosis, chronic HIV and hepatitis negative Abd US: mild hepatomegaly. Diffuse increased echogenicity in the liver may reflect hepatic steatosis. Nodular contour of the liver could represent cirrhosis. Medical renal disease. Gallbladder is contracted but no cholelithiasis. Mild diffuse dilation of the common bile duct without evidence for choledocholithiasis. CT A/P: Hepatomegaly noted without focal mass or gross intrahepatic biliary duct dilatation. Mild anasarca. Hepatobiliary surgeon consulted (Wilson) Hx Adrenal Adenoma/Mass Outpatient follow up Vitamin D deficiency- suspect 2/2 kidney disease 25-OH vit D <12.5 Vitamin D 50,000 IU Q1WK on 03/20 (Friday) x 8 doses PPX: Pt on Eliquis 5 mg PO BID Pepcid 20 mg PO daily PT will eval and treat pt for foot pain Plan: Pending outpatient HD placement, tolerating HD well. Gentle hydration. Case discussed with Dr. Sunitha Dhaliwal PGY1 <Dai Helton V - Last Filed: 04/02/19 22:19> Objective - Vital Signs/Intake and Output Vital Signs (last 24 hours): Temp Pulse Resp BP Pulse Ox 98.7 F 97 H 20 150/60 99 04/02/19 15:00 04/02/19 15:00 04/02/19 15:00 04/02/19 17:24 04/02/19 15:00 - Medications Medications: Current Medications Acetaminophen (Tylenol 325mg Tab) 650 mg PO Q6 PRN PRN Reason: Pain, moderate (4-7) Last Admin: 04/02/19 21:20 Dose: 650 mg Albuterol/Ipratropium (Duoneb 3 Mg/0.5 Mg (3 Ml) Ud) 3 ml INH RQ6 PRN PRN Reason: Shortness of Breath Amlodipine Besylate (Norvasc) 10 mg PO Q24H [facility] Last Admin: 04/02/19 09:00 Dose: 10 mg Apixaban (Eliquis) 5 mg PO BID [facility] Last Admin: 04/02/19 17:26 Dose: 5 mg Artificial Tears (Artificial Tears) 0 ml OU BID [facility] Last Admin: 04/02/19 17:26 Dose: 2 drop Ascorbic Acid (Vitamin C 500 Mg Tab) 500 mg PO DAILY [facility] Last Admin: 04/02/19 10:17 Dose: 500 mg Aspirin (Ecotrin) 81 mg PO DAILY [facility] Last Admin: 04/02/19 10:20 Dose: 81 mg Carvedilol (Coreg) 12.5 mg PO BID [facility] Last Admin: 04/02/19 17:24 Dose: 12.5 mg Dextrose (Dextrose 50% Inj) 0 ml IV STAT PRN; Protocol PRN Reason: Hypoglycemia Protocol Dextrose (Glutose 15) 0 gm PO ONCE PRN; Protocol PRN Reason: Hypoglycemia Protocol Docusate Sodium (Colace) 100 mg PO TID [facility] Last Admin: 03/31/19 10:08 Dose: Not Given Ergocalciferol (Drisdol 50,000 Intl Units Cap) 1 cap PO Q7D [facility] Stop: 05/05/19 12:01 Last Admin: 03/31/19 11:15 Dose: 1 cap Folic Acid (Folic Acid) 1 mg PO DAILY [facility] Last Admin: 04/02/19 10:17 Dose: 1 mg Gabapentin (Neurontin) 100 mg PO Q8H [facility] Last Admin: 04/02/19 21:23 Dose: 100 mg Glucagon (Glucagen Diagnostic Kit) 0 mg IM STAT PRN; Protocol PRN Reason: Hypoglycemia Protocol Hydralazine HCl (Apresoline) 50 mg PO Q8H [facility] Last Admin: 03/31/19 08:25 Dose: 50 mg Insulin Human Regular (Novolin R) 0 unit SC ACHS [facility]; Protocol Last Admin: 04/02/19 21:45 Dose: Not Given Losartan Potassium (Cozaar) 50 mg PO DAILY [facility] Last Admin: 04/02/19 10:20 Dose: 50 mg Metolazone (Zaroxolyn) 5 mg PO QAM [facility] Last Admin: 04/02/19 10:18 Dose: 5 mg Multivitamins (Hexavitamin) 1 tab PO DAILY [facility] Last Admin: 04/02/19 10:17 Dose: 1 tab Nicotine (Nicoderm Cq) 1 patch TD DAILY [facility] Stop: 04/28/19 23:59 Last Admin: 04/02/19 10:20 Dose: 1 patch Polyethylene Glycol (Miralax) 17 gm PO DAILY [facility] Last Admin: 03/30/19 10:08 Dose: Not Given Thiamine HCl (Vitamin B1 Tab) 100 mg PO DAILY [facility] Last Admin: 04/02/19 10:15 Dose: 100 mg Torsemide (Demadex) 20 mg PO DAILY [facility] Trazodone HCl (Desyrel) 100 mg PO HS PRN PRN Reason: Insomnia Last Admin: 04/02/19 21:21 Dose: 100 mg - Labs Labs: 04/01/19 14:10 04/01/19 14:10 PT 12.3 SECONDS (9.7-12.2) H 03/25/19 07:55 INR 1.1 03/25/19 07:55 APTT 38.0 SECONDS (21-34) H 03/25/19 07:55 Assessment and Plan (1) SUSANNAH (acute kidney injury) Status: Acute (2) CHF (congestive heart failure) Status: Acute (3) Hypertensive urgency Status: Acute (4) CKD (chronic kidney disease), stage III Status: Chronic (5) Proteinuria Status: Chronic (6) Prophylactic measure Status: Acute Attending/Attestation - Attestation I have personally seen and examined this patient.: Yes I have fully participated in the care of the patient.: Yes I have reviewed all pertinent clinical information, including history, physical exam and plan: Yes
[2019-03-31] MEDS: metOLazone 5 MG TAB PO SCH (10:06)
[2019-03-31] MEDS: Multiple Vitamins Tab PO SCH (10:07)
[2019-03-31] MEDS ORDERED: Sodium Chloride 0.9% 500 ML IV SCH (10:45)
[2019-03-31] MEDS: Ergocalciferol 50,000 Intl Units Cap PO SCH (11:15)
--- NOTE | 2019-03-31 12:51 | CARD ---
APPROVED REPORT Date of service: 03/26/2019 EKG Measurement Heart [id number] <Conclusion> Sinus rhythm with premature atrial complexes Nonspecific T wave abnormality Abnormal ECG
--- NOTE | 2019-03-31 12:51 | CARD ---
APPROVED REPORT Date of service: 03/26/2019 EKG Measurement Heart [id number] <Conclusion> Sinus rhythm with frequent premature ventricular complexes and premature atrial complexes Nonspecific T wave abnormality Abnormal ECG
--- NOTE | 2019-03-31 12:51 | CARD ---
APPROVED REPORT Date of service: 03/26/2019 EKG Measurement Heart [id number] <Conclusion> Sinus rhythm with premature atrial complexes Nonspecific T wave abnormality Abnormal ECG
--- NOTE | 2019-03-31 17:46 | CP.PCM.PN ---
Subjective - Date & Time of Evaluation Date of Evaluation: 03/31/19 Time of Evaluation: 12:45 - Subjective Subjective: Patient reporting feeling very weak, improving with IVF; diarrhea since past 2 days; pain involving AVG site improved; Objective - Vital Signs/Intake and Output Vital Signs (last 24 hours): Temp Pulse Resp BP Pulse Ox 98.6 F 50 L 20 104/65 97 03/31/19 15:27 03/31/19 15:27 03/31/19 15:27 03/31/19 17:35 03/31/19 15:27 Intake and Output: 03/31/19 03/31/19 06:59 18:59 Intake Total 300 940 Balance 300 940 - Medications Medications: Current Medications Acetaminophen (Tylenol 325mg Tab) 650 mg PO Q6 PRN PRN Reason: Pain, moderate (4-7) Last Admin: 03/31/19 05:01 Dose: 650 mg Albuterol/Ipratropium (Duoneb 3 Mg/0.5 Mg (3 Ml) Ud) 3 ml INH RQ6 PRN PRN Reason: Shortness of Breath Amlodipine Besylate (Norvasc) 10 mg PO Q24H [facility] Last Admin: 03/31/19 08:25 Dose: 10 mg Apixaban (Eliquis) 5 mg PO BID [facility] Last Admin: 03/31/19 17:35 Dose: 5 mg Ascorbic Acid (Vitamin C 500 Mg Tab) 500 mg PO DAILY [facility] Last Admin: 03/31/19 11:15 Dose: 500 mg Aspirin (Ecotrin) 81 mg PO DAILY [facility] Last Admin: 03/31/19 10:06 Dose: 81 mg Carvedilol (Coreg) 12.5 mg PO BID [facility] Last Admin: 03/31/19 17:35 Dose: 12.5 mg Dextrose (Dextrose 50% Inj) 0 ml IV STAT PRN; Protocol PRN Reason: Hypoglycemia Protocol Dextrose (Glutose 15) 0 gm PO ONCE PRN; Protocol PRN Reason: Hypoglycemia Protocol Docusate Sodium (Colace) 100 mg PO TID [facility] Last Admin: 03/31/19 10:08 Dose: Not Given Ergocalciferol (Drisdol 50,000 Intl Units Cap) 1 cap PO Q7D [facility] Stop: 05/05/19 12:01 Last Admin: 03/31/19 11:15 Dose: 1 cap Folic Acid (Folic Acid) 1 mg PO DAILY [facility] Last Admin: 03/31/19 10:06 Dose: 1 mg Gabapentin (Neurontin) 100 mg PO Q8H [facility] Last Admin: 03/31/19 13:05 Dose: Not Given Glucagon (Glucagen Diagnostic Kit) 0 mg IM STAT PRN; Protocol PRN Reason: Hypoglycemia Protocol Hydralazine HCl (Apresoline) 50 mg PO Q8H [facility] Last Admin: 03/31/19 08:25 Dose: 50 mg Dextrose (Dextrose 5% In Water 1000 Ml) 1,000 mls @ 0 mls/hr IV .Q0M PRN; Protocol PRN Reason: Hypoglycemia Protocol Insulin Human Regular (Novolin R) 0 unit SC ACHS [facility]S [facility]; Protocol Last Admin: 03/31/19 17:36 Dose: Not Given Losartan Potassium (Cozaar) 50 mg PO DAILY [facility] Last Admin: 03/31/19 10:07 Dose: 50 mg Metolazone (Zaroxolyn) 5 mg PO QAM [facility] Last Admin: 03/31/19 10:06 Dose: 5 mg Multivitamins (Hexavitamin) 1 tab PO DAILY [facility] Last Admin: 03/31/19 10:07 Dose: 1 tab Nicotine (Nicoderm Cq) 1 patch TD DAILY [facility] Stop: 04/28/19 23:59 Last Admin: 03/31/19 10:06 Dose: 1 patch Polyethylene Glycol (Miralax) 17 gm PO DAILY [facility] Last Admin: 03/30/19 10:08 Dose: Not Given Thiamine HCl (Vitamin B1 Tab) 100 mg PO DAILY [facility] Last Admin: 03/31/19 10:07 Dose: 100 mg Torsemide (Demadex) 20 mg PO DAILY [facility] Trazodone HCl (Desyrel) 100 mg PO HS PRN PRN Reason: Insomnia Last Admin: 03/29/19 21:16 Dose: 100 mg - Labs Labs: 03/30/19 14:22 03/30/19 14:22 PT 12.3 SECONDS (9.7-12.2) H 03/25/19 07:55 INR 1.1 03/25/19 07:55 APTT 38.0 SECONDS (21-34) H 03/25/19 07:55 - Constitutional Appears: Non-toxic, No Acute Distress - Eye Exam Eye Exam: Normal appearance. absent: Scleral icterus - Respiratory Exam Respiratory Exam: Clear to Ausculation Bilateral. absent: Respiratory Distress - Cardiovascular Exam Cardiovascular Exam: RRR, +S1, +S2 - GI/Abdominal Exam GI & Abdominal Exam: Soft. absent: Distended - Extremities Exam Additional comments: minimal lower leg edema; - Neurological Exam Neurological Exam: Alert, Awake - Psychiatric Exam Psychiatric exam: Normal Mood. absent: Agitated - Skin Skin Exam: Warm. absent: Cyanosis Assessment and Plan (1) SUSANNAH (acute kidney injury) Assessment & Plan: Progression to ESRD; stable lytes; appears volume depleted in the setting of diarrhea; -Holding HD today; giving back IVF w/ NS at 100 cc/hr x 1L total; -Next HD for tomorrow; awaiting outpatient HD setup; Status: Acute (2) Hypertensive chronic kidney disease Assessment & Plan: Elevated BP, dropping after giving IVF; will hold hydralazine; continue rest of meds; holding diuretic for now; Status: Acute (3) CHF (congestive heart failure) Assessment & Plan: Acute decompensated diastolic CHF w/ pulm htn, currently appears volume depleted; will resume diuretic once diarrhea resolves and patient having adequate PO intake; Status: Acute (4) Proteinuria Status: Chronic (5) Pain Assessment & Plan: Involving AVG site; reluctantly giving naproxen (avoiding opiates in patient with opiate abuse history), will decrease dose to 275 mg q12h prn; Status: Acute
--- NOTE | 2019-04-01 01:15 | CARD ---
APPROVED REPORT Date of service: 03/30/2019 EKG Measurement Heart [id number] <Conclusion> Normal sinus rhythm Normal ECG
[2019-04-01] MEDS ORDERED: Sodium Chloride 0.9% 500 ML IV SCH (01:45)
[2019-04-01] MEDS: (Novolin R) Insulin Human Regular 100 units/ml vial SC SCH ×4 (07:30→22:00)
--- NOTE | 2019-04-01 07:30 | CP.PCM.PN ---
<MadhuriJamey - Last Filed: 04/01/19 14:54> Subjective - Date & Time of Evaluation Date of Evaluation: 04/01/19 Time of Evaluation: 09:00 - Subjective Subjective: PGY1 Medicine progress note for Dr. Helton Pt seen and examined at bedside. Pt is resting comfortably. No acute events overnight. Continues to endorse lower extremity cramping pain, worse on the right. She has resolution of the diarrhea, but has not had a bowel movement today, passing flatus. Denies fever, chills, chest pain, sob, abdominal pain, n/v, headache, dizziness, hematochezia, melena, visual changes, dizziness, lightheadedness. Weakness has improved with IVF. Pt reports that she received a call earlier in the week to set up outpatient HD. Objective - Vital Signs/Intake and Output Vital Signs (last 24 hours): Temp Pulse Resp BP Pulse Ox 98.0 F 64 20 134/71 98 04/01/19 07:00 04/01/19 07:00 04/01/19 07:00 04/01/19 07:00 04/01/19 07:00 - Medications Medications: Current Medications Acetaminophen (Tylenol 325mg Tab) 650 mg PO Q6 PRN PRN Reason: Pain, moderate (4-7) Last Admin: 03/31/19 21:07 Dose: 650 mg Albuterol/Ipratropium (Duoneb 3 Mg/0.5 Mg (3 Ml) Ud) 3 ml INH RQ6 PRN PRN Reason: Shortness of Breath Amlodipine Besylate (Norvasc) 10 mg PO Q24H [facility] Last Admin: 03/31/19 08:25 Dose: 10 mg Apixaban (Eliquis) 5 mg PO BID [facility] Last Admin: 03/31/19 17:35 Dose: 5 mg Ascorbic Acid (Vitamin C 500 Mg Tab) 500 mg PO DAILY [facility] Last Admin: 03/31/19 11:15 Dose: 500 mg Aspirin (Ecotrin) 81 mg PO DAILY [facility] Last Admin: 03/31/19 10:06 Dose: 81 mg Carvedilol (Coreg) 12.5 mg PO BID [facility] Last Admin: 03/31/19 17:35 Dose: 12.5 mg Dextrose (Dextrose 50% Inj) 0 ml IV STAT PRN; Protocol PRN Reason: Hypoglycemia Protocol Dextrose (Glutose 15) 0 gm PO ONCE PRN; Protocol PRN Reason: Hypoglycemia Protocol Docusate Sodium (Colace) 100 mg PO TID [facility] Last Admin: 03/31/19 10:08 Dose: Not Given Ergocalciferol (Drisdol 50,000 Intl Units Cap) 1 cap PO Q7D [facility] Stop: 05/05/19 12:01 Last Admin: 03/31/19 11:15 Dose: 1 cap Folic Acid (Folic Acid) 1 mg PO DAILY [facility] Last Admin: 03/31/19 10:06 Dose: 1 mg Gabapentin (Neurontin) 100 mg PO Q8H [facility] Last Admin: 04/01/19 05:45 Dose: 100 mg Glucagon (Glucagen Diagnostic Kit) 0 mg IM STAT PRN; Protocol PRN Reason: Hypoglycemia Protocol Hydralazine HCl (Apresoline) 50 mg PO Q8H [facility] Last Admin: 03/31/19 08:25 Dose: 50 mg Dextrose (Dextrose 5% In Water 1000 Ml) 1,000 mls @ 0 mls/hr IV .Q0M PRN; Protocol PRN Reason: Hypoglycemia Protocol Insulin Human Regular (Novolin R) 0 unit SC ACHS [facility]; Protocol Last Admin: 03/31/19 21:01 Dose: Not Given Losartan Potassium (Cozaar) 50 mg PO DAILY [facility] Last Admin: 03/31/19 10:07 Dose: 50 mg Metolazone (Zaroxolyn) 5 mg PO QAM [facility] Last Admin: 03/31/19 10:06 Dose: 5 mg Multivitamins (Hexavitamin) 1 tab PO DAILY [facility] Last Admin: 03/31/19 10:07 Dose: 1 tab Nicotine (Nicoderm Cq) 1 patch TD DAILY [facility] Stop: 04/28/19 23:59 Last Admin: 03/31/19 10:06 Dose: 1 patch Polyethylene Glycol (Miralax) 17 gm PO DAILY [facility] Last Admin: 03/30/19 10:08 Dose: Not Given Thiamine HCl (Vitamin B1 Tab) 100 mg PO DAILY [facility] Last Admin: 03/31/19 10:07 Dose: 100 mg Torsemide (Demadex) 20 mg PO DAILY [facility] Trazodone HCl (Desyrel) 100 mg PO HS PRN PRN Reason: Insomnia Last Admin: 03/29/19 21:16 Dose: 100 mg - Labs Labs: 03/30/19 14:22 03/30/19 14:22 PT 12.3 SECONDS (9.7-12.2) H 03/25/19 07:55 INR 1.1 03/25/19 07:55 APTT 38.0 SECONDS (21-34) H 03/25/19 07:55 - Additional Findings Additional findings: - Constitutional Appears: Non-toxic, No Acute Distress - Head Exam Head Exam: ATRAUMATIC, NORMAL INSPECTION - Eye Exam Additional comments: Right eye exotropia - ENT Exam ENT Exam: Mucous Membranes Dry - Respiratory Exam Respiratory Exam: Clear to Auscultation Bilateral, NORMAL BREATHING PATTERN. absent: Respiratory Distress - Cardiovascular Exam Cardiovascular Exam: Irregularly irregular, +S1, +S2. - GI/Abdominal Exam GI & Abdominal Exam: Soft. absent: Distended, Tenderness - Extremities Exam Extremities Exam: (+) hypertonicity and tenderness bilateral achilles (worse on right). absent: Pedal Edema Additional comments: Left Arm AVF with (+) Thrill; no signs of infection; minimal tenderness Right Chest Permacath insertion site nontender; no signs of infections; nontender - Neurological Exam Neurological Exam: Alert, Awake, Normal Gait, Oriented x3 - Psychiatric Exam Psychiatric exam: Normal Affect, Normal Mood - Skin Skin Exam: Dry, Normal Color, Warm Assessment and Plan - Assessment and Plan (Free Text) Assessment: Patient is a 58 yo female with CKD, HTN, T2DM, and polysubstance use (heroin and cocaine) who presented with leg swelling and abdominal pain. Patient found to have worsening kidney disease and severe constipation. Echo notable for severe pulm HTN. Patient also Patient had L renal biopsy on 03/22- diabetic nephropathy. Patient had AV graft and permacath placed 03/25. Started on HD on 03/26. Plan: ESRD on HD via Right Chest Permacath with maturation of Left Arm AVF pending starting 03/26/19: Kidney biopsy pathology shows diabetic nephropathy, class IIb with segmental glomerulosclerosis. To undergo fourth HD today with Dr. Smith Reiterated that she will need to enlist the help of her family and friends because if she misses her HD she will not only lose her spot for HD, but that her health would decline. F/u with CM for need for either Medicaid or [facility] outpatient HD placement, as well as any [facility] services that would help patient get to and from HD. Received 1L of NS IVF total yesterday as per Dr. Smith, responded well. Pt's dialysis held yesterday, will go today. Intermittent chest pain, 03/30/19; resolved CXR shows no active disease Troponin was negative EKG shows NSR at 60, nonspecific STTW changes Continue to monitor Nonproductive Cough Afebrile, no leukocytosis CXR shows no acute changes Vitamin C 500 mg PO once daily Acute decompensated diastolic congestive heart failure (HFpEF), improving CXR: cardiomegaly, L pleural effusion EKG: NSR, PVCs LE Dopplers: no DVT Echo: EF 62%, mod-severe LVH, severe pulm HTN, mod TR CT A/P: Mild CHF suspected. [id number] left and mild right pleural effusions identified. BNP 31,300--> 12,300 Trop negative Monitor on telemetry Fluid restriction 1500 mL Strict Is & Os Daily weights Duoneb Q6H PRN Lasix 40 mg PO daily (8am) Coreg to 12.5 mg PO BID (10am, 6pm) Metolazone 5 mg PO daily (10am) Cardiology consulted (Randa) Uncontrolled HTN, improving Norvasc 10 mg PO 1x/day at 8 AM Coreg 12.5 mg PO 2x/day at 10 AM and 6 PM Lasix 40 mg PO 1x/day at 8 AM Hydralazine 25 mg PO 3x/day at 10 AM, 2 PM, and 6 PM Cozaar 25 mg PO at 10 AM Atrial Flutter: Continue coreg 12.5 mg PO BID Bale Breaker Operator, Dr. Mckenzie, is ok with Coreg and does recommend Eliquis which was started 03/27/19 Eliquis 5 mg PO BID Patient will require assistance for payment for the Eliquis and she can go to [email or web address] (click on nonvalvular Afib, then click on C ost/Savings/Support for instructions OR may call [phone] for assistance). If for some reason the patient does NOT qualify for Eliquis assistance, patient understands that she would then placed on Coumadin and all that that entails (continued monitoring, diet). Eliquis acquisition assistance form sent to [employer] field marketing representative by CM Maritza Hx of Polysubstance Abuse Upon Discharge will need to be provided with the following: [place] [employer] [phone] for help quitting smoking AA [phone] for help discontinuing her daily beer drinking since the age of 12 For help with Cocaine and Heroin abuse, she will need to go to www.[email or web address] to help finding meetings near her residence Extensive conversation with patient on 03/28/19 about the dangers of Tobacco, Heroine, Cocaine, and Alcohol and the importance of following up with support groups to increase her chances of abstinence Continue Thiamine, MV, Folic acid Continue Nicotine patch Constipation, resolved Colace, Miralax on hold due to loose bowel movements Hx IDDM2 with neuropathy Continue to hold home Jardiance due to ESRD Continue to monitor blood glucose; well controlled at this time Consult placed for Vamp Maker Nurse Lida at [facility] 03/27/19 to come see patient this coming week to teach patient how to administer insulin and to measure insulin: Waldron Cathy placed call on 03/27/19 Continue ASA, ARB Continue Gabapentin for neuropathy; renally dosed 100 mg PO BID Hepatic steatosis, chronic HIV and hepatitis negative Abd US: mild hepatomegaly. Diffuse increased echogenicity in the liver may reflect hepatic steatosis. Nodular contour of the liver could represent cirrhosis. Medical renal disease. Gallbladder is contracted but no cholelithiasis. Mild diffuse dilation of the common bile duct without evidence for choledocholithiasis. CT A/P: Hepatomegaly noted without focal mass or gross intrahepatic biliary duct dilatation. Mild anasarca. Hepatobiliary surgeon consulted (Wilson) Hx Adrenal Adenoma/Mass Outpatient follow up Vitamin D deficiency- suspect 2/2 kidney disease 25-OH vit D <12.5 Vitamin D 50,000 IU Q1WK on 03/20 (Friday) x 8 doses PPX: Pt on Eliquis 5 mg PO BID Pepcid 20 mg PO daily PT will eval and treat pt for foot pain Plan: Pending outpatient HD placement, tolerating HD well. CM reports that pt's HD is still pending insurance/michael approval. Case discussed with Dr. Sunitha Dhaliwal PGY1 <Dai Helton V - Last Filed: 04/02/19 22:19> Objective - Vital Signs/Intake and Output Vital Signs (last 24 hours): Temp Pulse Resp BP Pulse Ox 98.7 F 97 H 20 150/60 99 04/02/19 15:00 04/02/19 15:00 04/02/19 15:00 04/02/19 17:24 04/02/19 15:00 - Medications Medications: Current Medications Acetaminophen (Tylenol 325mg Tab) 650 mg PO Q6 PRN PRN Reason: Pain, moderate (4-7) Last Admin: 04/02/19 21:20 Dose: 650 mg Albuterol/Ipratropium (Duoneb 3 Mg/0.5 Mg (3 Ml) Ud) 3 ml INH RQ6 PRN PRN Reason: Shortness of Breath Amlodipine Besylate (Norvasc) 10 mg PO Q24H [facility] Last Admin: 04/02/19 09:00 Dose: 10 mg Apixaban (Eliquis) 5 mg PO BID [facility] Last Admin: 04/02/19 17:26 Dose: 5 mg Artificial Tears (Artificial Tears) 0 ml OU BID [facility] Last Admin: 04/02/19 17:26 Dose: 2 drop Ascorbic Acid (Vitamin C 500 Mg Tab) 500 mg PO DAILY [facility] Last Admin: 04/02/19 10:17 Dose: 500 mg Aspirin (Ecotrin) 81 mg PO DAILY [facility] Last Admin: 04/02/19 10:20 Dose: 81 mg Carvedilol (Coreg) 12.5 mg PO BID [facility] Last Admin: 04/02/19 17:24 Dose: 12.5 mg Dextrose (Dextrose 50% Inj) 0 ml IV STAT PRN; Protocol PRN Reason: Hypoglycemia Protocol Dextrose (Glutose 15) 0 gm PO ONCE PRN; Protocol PRN Reason: Hypoglycemia Protocol Docusate Sodium (Colace) 100 mg PO TID [facility] Last Admin: 03/31/19 10:08 Dose: Not Given Ergocalciferol (Drisdol 50,000 Intl Units Cap) 1 cap PO Q7D [facility] Stop: 05/05/19 12:01 Last Admin: 03/31/19 11:15 Dose: 1 cap Folic Acid (Folic Acid) 1 mg PO DAILY [facility] Last Admin: 04/02/19 10:17 Dose: 1 mg Gabapentin (Neurontin) 100 mg PO Q8H [facility] Last Admin: 04/02/19 21:23 Dose: 100 mg Glucagon (Glucagen Diagnostic Kit) 0 mg IM STAT PRN; Protocol PRN Reason: Hypoglycemia Protocol Hydralazine HCl (Apresoline) 50 mg PO Q8H [facility] Last Admin: 03/31/19 08:25 Dose: 50 mg Insulin Human Regular (Novolin R) 0 unit SC ACHS [facility]; Protocol Last Admin: 04/02/19 21:45 Dose: Not Given Losartan Potassium (Cozaar) 50 mg PO DAILY [facility] Last Admin: 04/02/19 10:20 Dose: 50 mg Metolazone (Zaroxolyn) 5 mg PO QAM [facility] Last Admin: 04/02/19 10:18 Dose: 5 mg Multivitamins (Hexavitamin) 1 tab PO DAILY [facility] Last Admin: 04/02/19 10:17 Dose: 1 tab Nicotine (Nicoderm Cq) 1 patch TD DAILY [facility] Stop: 04/28/19 23:59 Last Admin: 04/02/19 10:20 Dose: 1 patch Polyethylene Glycol (Miralax) 17 gm PO DAILY [facility] Last Admin: 03/30/19 10:08 Dose: Not Given Thiamine HCl (Vitamin B1 Tab) 100 mg PO DAILY [facility] Last Admin: 04/02/19 10:15 Dose: 100 mg Torsemide (Demadex) 20 mg PO DAILY [facility] Trazodone HCl (Desyrel) 100 mg PO HS PRN PRN Reason: Insomnia Last Admin: 04/02/19 21:21 Dose: 100 mg - Labs Labs: 04/01/19 14:10 04/01/19 14:10 PT 12.3 SECONDS (9.7-12.2) H 03/25/19 07:55 INR 1.1 03/25/19 07:55 APTT 38.0 SECONDS (21-34) H 03/25/19 07:55 Assessment and Plan (1) SUSANNAH (acute kidney injury) Status: Acute (2) CHF (congestive heart failure) Status: Acute (3) Hypertensive urgency Status: Acute (4) CKD (chronic kidney disease), stage III Status: Chronic (5) Proteinuria Status: Chronic (6) Prophylactic measure Status: Acute Attending/Attestation - Attestation I have personally seen and examined this patient.: Yes I have fully participated in the care of the patient.: Yes I have reviewed all pertinent clinical information, including history, physical exam and plan: Yes
[2019-04-01] MEDS: Multiple Vitamins Tab PO SCH (09:00)
[2019-04-01] MEDS: metOLazone 5 MG TAB PO SCH (09:02)
[2019-04-01] MEDS: Aritificial Tears (15ml) OU SCH ×2 (13:08→17:48)
[2019-04-01 14:15] LABS: BASO # 0.1 K/uL (0.0-0.2); BASO % 1.3 % (0.0-2.0); EOS # 0.4 K/uL (0.0-0.7); EOS % 6.1 % (0.0-4.0); HEMOGLOBIN 11.8 g/dL (11.0-16.0); LYMPH # 0.9 K/uL (1.0-4.3); LYMPH % 14.1 % (20.0-40.0); MEAN CELL VOLUME 94.8 fL (81.0-99.0); MEAN CORPUSCULAR HGB CONC 32.7 g/dL (33.0-37.0); MEAN PLATELET VOLUME 10.1 fL (7.2-11.7); MONO # 0.5 K/uL (0.0-0.8); MONO % 7.5 % (0.0-10.0); NEUT # 4.7 K/uL (1.8-7.0); RBC 3.8 Mil/uL (3.80-5.20); RED CELL DISTRIBUTION WIDTH 14.9 % (11.5-14.5); WHITE BLOOD COUNT 6.6 K/uL (4.8-10.8)
--- NOTE | 2019-04-01 18:24 | CP.PCM.PN ---
Subjective - Date & Time of Evaluation Date of Evaluation: 04/01/19 Time of Evaluation: 13:00 - Subjective Subjective: Patient reports feeling well; tolerating diet; is urinating; pain of AVG site overall improved; Objective - Vital Signs/Intake and Output Vital Signs (last 24 hours): Temp Pulse Resp BP Pulse Ox 98.8 F 98 H 20 153/64 H 98 04/01/19 17:30 04/01/19 18:03 04/01/19 17:30 04/01/19 17:30 04/01/19 17:30 - Medications Medications: Current Medications Acetaminophen (Tylenol 325mg Tab) 650 mg PO Q6 PRN PRN Reason: Pain, moderate (4-7) Last Admin: 03/31/19 21:07 Dose: 650 mg Albuterol/Ipratropium (Duoneb 3 Mg/0.5 Mg (3 Ml) Ud) 3 ml INH RQ6 PRN PRN Reason: Shortness of Breath Amlodipine Besylate (Norvasc) 10 mg PO Q24H [facility] Last Admin: 04/01/19 08:54 Dose: 10 mg Apixaban (Eliquis) 5 mg PO BID [facility] Last Admin: 04/01/19 17:47 Dose: 5 mg Artificial Tears (Artificial Tears) 0 ml OU BID [facility] Last Admin: 04/01/19 17:48 Dose: 1 drop Ascorbic Acid (Vitamin C 500 Mg Tab) 500 mg PO DAILY [facility] Last Admin: 04/01/19 09:01 Dose: 500 mg Aspirin (Ecotrin) 81 mg PO DAILY [facility] Last Admin: 04/01/19 09:00 Dose: 81 mg Carvedilol (Coreg) 12.5 mg PO BID [facility] Last Admin: 04/01/19 17:51 Dose: Not Given Dextrose (Dextrose 50% Inj) 0 ml IV STAT PRN; Protocol PRN Reason: Hypoglycemia Protocol Dextrose (Glutose 15) 0 gm PO ONCE PRN; Protocol PRN Reason: Hypoglycemia Protocol Docusate Sodium (Colace) 100 mg PO TID [facility] Last Admin: 03/31/19 10:08 Dose: Not Given Ergocalciferol (Drisdol 50,000 Intl Units Cap) 1 cap PO Q7D [facility] Stop: 05/05/19 12:01 Last Admin: 03/31/19 11:15 Dose: 1 cap Folic Acid (Folic Acid) 1 mg PO DAILY [facility] Last Admin: 04/01/19 09:01 Dose: 1 mg Gabapentin (Neurontin) 100 mg PO Q8H [facility] Last Admin: 04/01/19 13:23 Dose: Not Given Glucagon (Glucagen Diagnostic Kit) 0 mg IM STAT PRN; Protocol PRN Reason: Hypoglycemia Protocol Hydralazine HCl (Apresoline) 50 mg PO Q8H [facility] Last Admin: 03/31/19 08:25 Dose: 50 mg Insulin Human Regular (Novolin R) 0 unit SC ACHS [facility]; Protocol Last Admin: 04/01/19 11:26 Dose: Not Given Losartan Potassium (Cozaar) 50 mg PO DAILY [facility] Last Admin: 04/01/19 16:33 Dose: 50 mg Metolazone (Zaroxolyn) 5 mg PO QAM [facility] Last Admin: 04/01/19 09:02 Dose: 5 mg Multivitamins (Hexavitamin) 1 tab PO DAILY [facility] Last Admin: 04/01/19 09:00 Dose: 1 tab Nicotine (Nicoderm Cq) 1 patch TD DAILY [facility] Stop: 04/28/19 23:59 Last Admin: 04/01/19 09:01 Dose: 1 patch Polyethylene Glycol (Miralax) 17 gm PO DAILY [facility] Last Admin: 03/30/19 10:08 Dose: Not Given Thiamine HCl (Vitamin B1 Tab) 100 mg PO DAILY [facility] Last Admin: 04/01/19 09:01 Dose: 100 mg Torsemide (Demadex) 20 mg PO DAILY [facility] Trazodone HCl (Desyrel) 100 mg PO HS PRN PRN Reason: Insomnia Last Admin: 03/29/19 21:16 Dose: 100 mg - Labs Labs: 04/01/19 14:10 04/01/19 14:10 PT 12.3 SECONDS (9.7-12.2) H 03/25/19 07:55 INR 1.1 03/25/19 07:55 APTT 38.0 SECONDS (21-34) H 03/25/19 07:55 - Constitutional Appears: Non-toxic, No Acute Distress - Eye Exam Eye Exam: Normal appearance. absent: Scleral icterus - Respiratory Exam Respiratory Exam: Clear to Ausculation Bilateral. absent: Respiratory Distress - Cardiovascular Exam Cardiovascular Exam: RRR, +S1, +S2 - GI/Abdominal Exam GI & Abdominal Exam: Soft. absent: Distended, Tenderness - Extremities Exam Additional comments: minimal lower leg edema; - Neurological Exam Neurological Exam: Alert, Awake - Psychiatric Exam Psychiatric exam: Normal Mood. absent: Agitated - Skin Skin Exam: Warm. absent: Cyanosis Assessment and Plan (1) SUSANNAH (acute kidney injury) Assessment & Plan: Progression to ESRD; stable electrolyte and volume status; dialyzing today per routine with 1L UF goal; Status: Acute (2) Hypertensive chronic kidney disease Assessment & Plan: BP better controlled today, continue current meds; Status: Acute (3) CHF (congestive heart failure) Assessment & Plan: Acute decompensation resolved; will continue with UF on HD; Status: Acute (4) Proteinuria Assessment & Plan: Continue losartan to preserve residual renal function; Status: Chronic (5) Pain Assessment & Plan: Continue with increased dose of gabapenin (100 mg q8h); Status: Acute
[2019-04-02] MEDS: (Novolin R) Insulin Human Regular 100 units/ml vial SC SCH ×4 (07:39→21:45)
--- NOTE | 2019-04-02 09:35 | CP.PCM.PN ---
<Jamey Dhaliwal - Last Filed: 04/02/19 14:28> Subjective - Date & Time of Evaluation Date of Evaluation: 04/02/19 Time of Evaluation: 07:30 - Subjective Subjective: PGY1 Medicine progress note for Dr. Helton Pt seen and examined at bedside. Pt is resting comfortably. No acute events overnight. No acute complaints. No BM since diarrhea stopped 2 days ago, passing flatus. Denies fever, chills, chest pain, sob, abdominal pain, n/v, headache, dizziness, hematochezia, melena, visual changes, dizziness, lightheadedness. S/p HD yesterday, well tolerated without residual weakness or fatigue. Objective - Vital Signs/Intake and Output Vital Signs (last 24 hours): Temp Pulse Resp BP Pulse Ox 98.5 F 70 20 143/86 95 04/02/19 07:00 04/02/19 07:54 04/02/19 07:00 04/02/19 07:00 04/02/19 07:00 Intake and Output: 04/02/19 04/02/19 06:59 18:59 Intake Total 300 Balance 300 - Medications Medications: Current Medications Acetaminophen (Tylenol 325mg Tab) 650 mg PO Q6 PRN PRN Reason: Pain, moderate (4-7) Last Admin: 03/31/19 21:07 Dose: 650 mg Albuterol/Ipratropium (Duoneb 3 Mg/0.5 Mg (3 Ml) Ud) 3 ml INH RQ6 PRN PRN Reason: Shortness of Breath Amlodipine Besylate (Norvasc) 10 mg PO Q24H [facility] Last Admin: 04/01/19 08:54 Dose: 10 mg Apixaban (Eliquis) 5 mg PO BID [facility] Last Admin: 04/01/19 17:47 Dose: 5 mg Artificial Tears (Artificial Tears) 0 ml OU BID [facility] Last Admin: 04/01/19 17:48 Dose: 1 drop Ascorbic Acid (Vitamin C 500 Mg Tab) 500 mg PO DAILY [facility] Last Admin: 04/01/19 09:01 Dose: 500 mg Aspirin (Ecotrin) 81 mg PO DAILY [facility] Last Admin: 04/01/19 09:00 Dose: 81 mg Carvedilol (Coreg) 12.5 mg PO BID [facility] Last Admin: 04/01/19 17:51 Dose: Not Given Dextrose (Dextrose 50% Inj) 0 ml IV STAT PRN; Protocol PRN Reason: Hypoglycemia Protocol Dextrose (Glutose 15) 0 gm PO ONCE PRN; Protocol PRN Reason: Hypoglycemia Protocol Docusate Sodium (Colace) 100 mg PO TID [facility] Last Admin: 03/31/19 10:08 Dose: Not Given Ergocalciferol (Drisdol 50,000 Intl Units Cap) 1 cap PO Q7D [facility] Stop: 05/05/19 12:01 Last Admin: 03/31/19 11:15 Dose: 1 cap Folic Acid (Folic Acid) 1 mg PO DAILY [facility] Last Admin: 04/01/19 09:01 Dose: 1 mg Gabapentin (Neurontin) 100 mg PO Q8H [facility] Last Admin: 04/02/19 05:33 Dose: 100 mg Glucagon (Glucagen Diagnostic Kit) 0 mg IM STAT PRN; Protocol PRN Reason: Hypoglycemia Protocol Hydralazine HCl (Apresoline) 50 mg PO Q8H [facility] Last Admin: 03/31/19 08:25 Dose: 50 mg Insulin Human Regular (Novolin R) 0 unit SC ACHS [facility]; Protocol Last Admin: 04/02/19 07:39 Dose: Not Given Losartan Potassium (Cozaar) 50 mg PO DAILY [facility] Last Admin: 04/01/19 16:33 Dose: 50 mg Metolazone (Zaroxolyn) 5 mg PO QAM [facility] Last Admin: 04/01/19 09:02 Dose: 5 mg Multivitamins (Hexavitamin) 1 tab PO DAILY [facility] Last Admin: 04/01/19 09:00 Dose: 1 tab Nicotine (Nicoderm Cq) 1 patch TD DAILY [facility] Stop: 04/28/19 23:59 Last Admin: 04/01/19 09:01 Dose: 1 patch Polyethylene Glycol (Miralax) 17 gm PO DAILY [facility] Last Admin: 03/30/19 10:08 Dose: Not Given Thiamine HCl (Vitamin B1 Tab) 100 mg PO DAILY [facility] Last Admin: 04/01/19 09:01 Dose: 100 mg Torsemide (Demadex) 20 mg PO DAILY [facility] Trazodone HCl (Desyrel) 100 mg PO HS PRN PRN Reason: Insomnia Last Admin: 03/29/19 21:16 Dose: 100 mg - Labs Labs: 04/01/19 14:10 04/01/19 14:10 PT 12.3 SECONDS (9.7-12.2) H 03/25/19 07:55 INR 1.1 03/25/19 07:55 APTT 38.0 SECONDS (21-34) H 03/25/19 07:55 - Additional Findings Additional findings: - Constitutional Appears: Non-toxic, No Acute Distress - Head Exam Head Exam: ATRAUMATIC, NORMAL INSPECTION - Eye Exam Additional comments: Right eye exotropia - ENT Exam ENT Exam: Mucous Membranes Dry - Respiratory Exam Respiratory Exam: Clear to Auscultation Bilateral, NORMAL BREATHING PATTERN. absent: Respiratory Distress - Cardiovascular Exam Cardiovascular Exam: Irregularly irregular, +S1, +S2. - GI/Abdominal Exam GI & Abdominal Exam: Soft. absent: Distended, Tenderness - Extremities Exam Extremities Exam: (+) hypertonicity and tenderness bilateral achilles (worse on right). absent: Pedal Edema Additional comments: Left Arm AVF with (+) Thrill; no signs of infection; minimal tenderness Right Chest Permacath insertion site nontender; no signs of infections; no ntender - Neurological Exam Neurological Exam: Alert, Awake, Normal Gait, Oriented x3 - Psychiatric Exam Psychiatric exam: Normal Affect, Normal Mood - Skin Skin Exam: Dry, Normal Color, Warm Assessment and Plan - Assessment and Plan (Free Text) Assessment: Patient is a 58 yo female with CKD, HTN, T2DM, and polysubstance use (heroin and cocaine) who presented with leg swelling and abdominal pain. Patient found to have worsening kidney disease and severe constipation. Echo notable for severe pulm HTN. Patient also Patient had L renal biopsy on 03/22- diabetic nephropathy. Patient had AV graft and permacath placed 03/25. Started on HD on 03/26. Plan: ESRD on HD via Right Chest Permacath with maturation of Left Arm AVF pending starting 03/26/19: Kidney biopsy pathology shows diabetic nephropathy, class IIb with segmental glomerulosclerosis. S/p 4th round of HD 04/01/19, well tolerated Reiterated that she will need to enlist the help of her family and friends because if she misses her HD she will not only lose her spot for HD, but that her health would decline. CM working on outpatient HD placement, as well as any michael transportation services that would help patient get to and from HD. Intermittent chest pain, 03/30/19; resolved CXR shows no active disease Troponin was negative EKG shows NSR at 60, nonspecific STTW changes Continue to monitor Nonproductive Cough, resolved Afebrile, no leukocytosis CXR shows no acute changes Vitamin C 500 mg PO once daily Acute decompensated diastolic congestive heart failure (HFpEF), improving CXR: cardiomegaly, L pleural effusion EKG: NSR, PVCs LE Dopplers: no DVT Echo: EF 62%, mod-severe LVH, severe pulm HTN, mod TR CT A/P: Mild CHF suspected. [id number] left and mild right pleural effusions identified. BNP 31,300--> 12,300 Trop negative Monitor on telemetry Fluid restriction 1500 mL Strict Is & Os Daily weights Duoneb Q6H PRN Lasix 40 mg PO daily (8am) Coreg to 12.5 mg PO BID (10am, 6pm) Metolazone 5 mg PO daily (10am) Cardiology consulted ([facility]) Uncontrolled HTN, improving Norvasc 10 mg PO 1x/day at 8 AM Coreg 12.5 mg PO 2x/day at 10 AM and 6 PM Lasix 40 mg PO 1x/day at 8 AM Hydralazine 25 mg PO 3x/day at 10 AM, 2 PM, and 6 PM Cozaar 25 mg PO at 10 AM Atrial Flutter: Continue coreg 12.5 mg PO BID Fishing Tackle Repairer, Dr. Mckenzie, is ok with Coreg and does recommend Eliquis which was started 03/27/19 Eliquis 5 mg PO BID Patient will require assistance for payment for the Eliquis and she can go to [email or web address] (click on nonvalvular Afib, then click on Cost/Savings/Support for instructions OR may call [phone] for assistance). If for some reason the patient does NOT qualify for Eliquis assistance, patient understands that she would then placed on Coumadin and all that that entails (continued monitoring, diet). Eliquis acquisition assistance form sent to [facility] patient care representative by SANDIE Khan of Polysubstance Abuse Upon Discharge will need to be provided with the following: [place] Quit[employer] [phone] for help quitting smoking AA [phone] for help discontinuing her daily beer drinking since the age of 12 For help with Cocaine and Heroin abuse, she will need to go to www.[email or web address] to help finding meetings near her residence Extensive conversation with patient on 03/28/19 about the dangers of Tobacco, Heroine, Cocaine, and Alcohol and the importance of following up with support groups to increase her chances of abstinence Continue Thiamine, MV, Folic acid Continue Nicotine patch Constipation, resolved Colace, Miralax on hold due to loose bowel movements Hx IDDM2 with neuropathy Continue to hold home Jardiance due to ESRD Continue to monitor blood glucose; well controlled at this time Consult placed for Quarter Folder Nurse Hilton at [facility] 03/27/19 to come see patient this coming week to teach patient how to administer insulin and to measure insulin: Field Service Consultant Cathy placed call on 03/27/19 Continue ASA, ARB Continue Gabapentin for neuropathy; renally dosed 100 mg PO BID Hepatic steatosis, chronic HIV and hepatitis negative Abd US: mild hepatomegaly. Diffuse increased echogenicity in the liver may reflect hepatic steatosis. Nodular contour of the liver could represent cirrhosis. Medical renal disease. Gallbladder is contracted but no cholelithiasis. Mild diffuse dilation of the common bile duct without evidence for choledocholithiasis. CT A/P: Hepatomegaly noted without focal mass or gross intrahepatic biliary duct dilatation. Mild anasarca. Hepatobiliary surgeon consulted ([facility]) Hx Adrenal Adenoma/Mass Outpatient follow up Vitamin D deficiency- suspect 2/2 kidney disease 25-OH vit D <12.5 Vitamin D 50,000 IU Q1WK on 03/20 (Friday) x 8 doses PPX: Pt on Eliquis 5 mg PO BID Pepcid 20 mg PO daily PT will eval and treat pt for foot pain Plan: Pending outpatient HD placement, tolerating HD well. Case discussed with Dr. Sunitha Dhaliwal PGY1 <Dai Helton V - Last Filed: 04/02/19 23:05> Objective - Vital Signs/Intake and Output Vital Signs (last 24 hours): Temp Pulse Resp BP Pulse Ox 98.7 F 97 H 20 150/60 99 04/02/19 15:00 04/02/19 15:00 04/02/19 15:00 04/02/19 17:24 04/02/19 15:00 - Medications Medications: Current Medications Acetaminophen (Tylenol 325mg Tab) 650 mg PO Q6 PRN PRN Reason: Pain, moderate (4-7) Last Admin: 04/02/19 21:20 Dose: 650 mg Albuterol/Ipratropium (Duoneb 3 Mg/0.5 Mg (3 Ml) Ud) 3 ml INH RQ6 PRN PRN Reason: Shortness of Breath Amlodipine Besylate (Norvasc) 10 mg PO Q24H [facility] Last Admin: 04/02/19 09:00 Dose: 10 mg Apixaban (Eliquis) 5 mg PO BID [facility] Last Admin: 04/02/19 17:26 Dose: 5 mg Artificial Tears (Artificial Tears) 0 ml OU BID [facility] Last Admin: 04/02/19 17:26 Dose: 2 drop Ascorbic Acid (Vitamin C 500 Mg Tab) 500 mg PO DAILY [facility] Last Admin: 04/02/19 10:17 Dose: 500 mg Aspirin (Ecotrin) 81 mg PO DAILY [facility] Last Admin: 04/02/19 10:20 Dose: 81 mg Carvedilol (Coreg) 12.5 mg PO BID [facility] Last Admin: 04/02/19 17:24 Dose: 12.5 mg Dextrose (Dextrose 50% Inj) 0 ml IV STAT PRN; Protocol PRN Reason: Hypoglycemia Protocol Dextrose (Glutose 15) 0 gm PO ONCE PRN; Protocol PRN Reason: Hypoglycemia Protocol Docusate Sodium (Colace) 100 mg PO TID [facility] Last Admin: 03/31/19 10:08 Dose: Not Given Ergocalciferol (Drisdol 50,000 Intl Units Cap) 1 cap PO Q7D [facility] Stop: 05/05/19 12:01 Last Admin: 03/31/19 11:15 Dose: 1 cap Folic Acid (Folic Acid) 1 mg PO DAILY [facility] Last Admin: 04/02/19 10:17 Dose: 1 mg Gabapentin (Neurontin) 100 mg PO Q8H [facility] Last Admin: 04/02/19 21:23 Dose: 100 mg Glucagon (Glucagen Diagnostic Kit) 0 mg IM STAT PRN; Protocol PRN Reason: Hypoglycemia Protocol Hydralazine HCl (Apresoline) 50 mg PO Q8H [facility] Last Admin: 03/31/19 08:25 Dose: 50 mg Insulin Human Regular (Novolin R) 0 unit SC ACHS [facility]; Protocol Last Admin: 04/02/19 21:45 Dose: Not Given Losartan Potassium (Cozaar) 50 mg PO DAILY [facility] Last Admin: 04/02/19 10:20 Dose: 50 mg Metolazone (Zaroxolyn) 5 mg PO QAM [facility] Last Admin: 04/02/19 10:18 Dose: 5 mg Multivitamins (Hexavitamin) 1 tab PO DAILY [facility] Last Admin: 04/02/19 10:17 Dose: 1 tab Nicotine (Nicoderm Cq) 1 patch TD DAILY [facility] Stop: 04/28/19 23:59 Last Admin: 04/02/19 10:20 Dose: 1 patch Polyethylene Glycol (Miralax) 17 gm PO DAILY [facility] Last Admin: 03/30/19 10:08 Dose: Not Given Thiamine HCl (Vitamin B1 Tab) 100 mg PO DAILY [facility] Last Admin: 04/02/19 10:15 Dose: 100 mg Torsemide (Demadex) 20 mg PO DAILY [facility] Trazodone HCl (Desyrel) 100 mg PO HS PRN PRN Reason: Insomnia Last Admin: 04/02/19 21:21 Dose: 100 mg - Labs Labs: 04/01/19 14:10 04/01/19 14:10 PT 12.3 SECONDS (9.7-12.2) H 03/25/19 07:55 INR 1.1 03/25/19 07:55 APTT 38.0 SECONDS (21-34) H 03/25/19 07:55 Attending/Attestation - Attestation I have personally seen and examined this patient.: Yes I have fully participated in the care of the patient.: Yes I have reviewed all pertinent clinical information, including history, physical exam and plan: Yes Notes (Text): Patient seen, examined, and case discussed with day-time resident. Patient denies acute complaints. Patient is awaiting outpatient dialysis placem ent. Patient is medically optimized; awaiting outpatient placement. Assessment/Plan 1. ESRD on HD via Right Chest Permacath with maturation of Left Arm AVF pending starting 03/26/19: Assessment/Plan * Nephrology (Dr. Smith) help appreciated * Vascular surgery (Dr. Alvarez) help appreciated * Operative Note * 03/25/19: Perm-A-Cath right jugular vein * 03/25/19: Brachial AV bovie graft, left upper arm * Renal Biopsy (04/02/19): diabetic nephropathy, Class II B with segmental glomerulosclerosis; 23% global glomerulosclerosis, modertae interstitial fibriosis and moderate arteriosclerosis * Dialysis per nephrology * Pending outpatient placement since patient required dialysis during this admission 2. Acute decompensated diastolic congestive heart failure (HFpEF) Stable Assessment/Plan * Cardiology (Dr. Reynolds) help appreciated * Chest xray (03/30/19): no active disease * Chest Xray (03/25/19): right central venous catheter tip extending into the cavoatrial junction. Moderate venous congestion. Linerar atelectatic changes in the left mid lung zone. Additional linear consolidative changes in the right midlung zone. Patchy consolidative changes in the right lung base. * Aspirin 81mg PO daily * Coreg 12.5mg PO BID * Cozaar 50mg PO daily * Metolazone 5mg POqAM * Echo (03/17/19): moderate to severe concentric LVH, left ventricular function is normal, EF normal, normal LV segmental wall motion, severe pulm HTN, 3.Hypertension Assessment/Plan * [facility] renal dialysis fluid restriction diet * Norvasc 10mg PO daily * Coreg 12.5 mg PO 2x/day * Lasix 40 mg PO 1x/day at 8 AM * Hydralazine 50mg PO TID-->on hold since 03/31/19 * Cozaar 50 mg PO at 10 AM * Patient is new on dialysis; underwent 4th session 04/01/19 4. Atrial Flutter Assessment/Plan * Coreg 12.5mg PO BID * Eliquis 5mg PO BID * Patient will require assistance for payment for the Eliquis and she can go to [email or web address] (click on nonvalvular Afib, then click on Cost/Savings/Support for instructions OR may call [phone] for a ssistance). * If for some reason the patient does NOT qualify for Eliquis assistance, patient understands that she would then placed on Coumadin and all that that entails (continued monitoring, diet). * Eliquis acquisition assistance form sent to [facility] patient care representative by SANDIE Salas * I have filled out the form for the patient to receive Eliquis for discharge planning 5. Hx of Polysubstance Abuse Assessment/Plan * Upon Discharge will need to be provided with the following: * [place] [employer] [phone] for help quitting smoking * AA [phone] for help discontinuing her daily beer drinking since the age of 12 * For help with Cocaine and Heroin abuse, she will need to go to [email or web address] to help finding meetings near her residence * Extensive conversation with patient on 03/28/19 about the dangers of Tobacco, Heroine, Cocaine, and Alcohol and the importance of following up with support groups to increase her chances of abstinence * Folic acid 1mg PO daily * MVI 1 tab PO daily * Thiamine 100mg PO daily 6. Constipation, resolved 7. Hx IDDM2 with neuropathy Assessment/Plan * Regular insulin sliding scale subqACHS * Hypoglycemic protocol * Aspirin 81mg PO daily * Cozaar 50mg PO daily * Gabapentin 100mg PO TID * [id number]: 6.0 (controlled) 8. Hepatic steatosis, chronic Assessment/Plan * HIV and hepatitis negative * Abd US: mild hepatomegaly. Diffuse increased echogenicity in the liver may reflect hepatic steatosis. Nodular contour of the liver could represent cirrhosis. Medical renal disease. Gallbladder is contracted but no cholelithiasis. Mild diffuse dilation of the common bile duct without evidence for choledocholithiasis. * CT A/P: Hepatomegaly noted without focal mass or gross intrahepatic biliary duct dilatation. Mild anasarca. * Hepatobiliary surgeon consulted ([facility]) evaluated during hospital 9. Hx Adrenal Adenoma/Mass Assessment/Plan * Outpatient follow up 10. Vitamin D deficiency- suspect 2/2 kidney disease Assessment/Plan * 25-OH vit D <12.5 * Vitamin D 50,000 IU Q1WK on 03/20 (Friday) x 8 doses 11. PPX: * Pt on Eliquis 5 mg PO BID * Pepcid 20 mg PO daily Disposition: pending outpatient dialysis.
[2019-04-02] MEDS: Multiple Vitamins Tab PO SCH (10:17)
[2019-04-02] MEDS: metOLazone 5 MG TAB PO SCH (10:18)
[2019-04-02] MEDS: Aritificial Tears (15ml) OU SCH ×2 (10:20→17:26)
--- NOTE | 2019-04-02 13:22 | CP.PCM.PN ---
<Shane Araya - Last Filed: 04/02/19 13:29> Subjective - Date & Time of Evaluation Date of Evaluation: 04/02/19 Time of Evaluation: 08:00 - Subjective Subjective: Nephrology Progress Note Patient seen and examined at bedside in no acute distress. She state she is feeling much better; no longer weak or experiencing diarrhea. States she tolerated dialysis well yesterday and is urinating without any issues. Physical Exam - Constitutional Appears: Non-toxic, No Acute Distress - Eye Exam Eye Exam: Normal appearance. absent: Scleral icterus - Respiratory Exam Respiratory Exam: Clear to Ausculation Bilateral. absent: Respiratory Distress - Cardiovascular Exam Cardiovascular Exam: RRR, +S1, +S2 - GI/Abdominal Exam GI & Abdominal Exam: Soft. absent: Distended, Tenderness - Extremities Exam Additional comments: minimal lower leg edema; - Neurological Exam Neurological Exam: Alert, Awake - Psychiatric Exam Psychiatric exam: Normal Mood. absent: Agitated - Skin Skin Exam: Warm. absent: Cyanosis Objective - Vital Signs/Intake and Output Vital Signs (last 24 hours): Temp Pulse Resp BP Pulse Ox 98.5 F 70 20 161/83 H 95 04/02/19 07:00 04/02/19 07:54 04/02/19 07:00 04/02/19 10:18 04/02/19 07:00 Intake and Output: 04/02/19 04/02/19 06:59 18:59 Intake Total 300 Balance 300 - Medications Medications: Current Medications Acetaminophen (Tylenol 325mg Tab) 650 mg PO Q6 PRN PRN Reason: Pain, moderate (4-7) Last Admin: 03/31/19 21:07 Dose: 650 mg Albuterol/Ipratropium (Duoneb 3 Mg/0.5 Mg (3 Ml) Ud) 3 ml INH RQ6 PRN PRN Reason: Shortness of Breath Amlodipine Besylate (Norvasc) 10 mg PO Q24H [facility] Last Admin: 04/02/19 09:00 Dose: 10 mg Apixaban (Eliquis) 5 mg PO BID [facility] Last Admin: 04/02/19 10:17 Dose: 5 mg Artificial Tears (Artificial Tears) 0 ml OU BID [facility] Last Admin: 04/02/19 10:20 Dose: 1 drop Ascorbic Acid (Vitamin C 500 Mg Tab) 500 mg PO DAILY [facility] Last Admin: 04/02/19 10:17 Dose: 500 mg Aspirin (Ecotrin) 81 mg PO DAILY [facility] Last Admin: 04/02/19 10:20 Dose: 81 mg Carvedilol (Coreg) 12.5 mg PO BID [facility] Last Admin: 04/02/19 10:18 Dose: 12.5 mg Dextrose (Dextrose 50% Inj) 0 ml IV STAT PRN; Protocol PRN Reason: Hypoglycemia Protocol Dextrose (Glutose 15) 0 gm PO ONCE PRN; Protocol PRN Reason: Hypoglycemia Protocol Docusate Sodium (Colace) 100 mg PO TID [facility] Last Admin: 03/31/19 10:08 Dose: Not Given Ergocalciferol (Drisdol 50,000 Intl Units Cap) 1 cap PO Q7D [facility] Stop: 05/05/19 12:01 Last Admin: 03/31/19 11:15 Dose: 1 cap Folic Acid (Folic Acid) 1 mg PO DAILY [facility] Last Admin: 04/02/19 10:17 Dose: 1 mg Gabapentin (Neurontin) 100 mg PO Q8H [facility] Last Admin: 04/02/19 05:33 Dose: 100 mg Glucagon (Glucagen Diagnostic Kit) 0 mg IM STAT PRN; Protocol PRN Reason: Hypoglycemia Protocol Hydralazine HCl (Apresoline) 50 mg PO Q8H [facility] Last Admin: 03/31/19 08:25 Dose: 50 mg Insulin Human Regular (Novolin R) 0 unit SC [facility]; Protocol Last Admin: 04/02/19 07:39 Dose: Not Given Losartan Potassium (Cozaar) 50 mg PO DAILY [facility] Last Admin: 04/02/19 10:20 Dose: 50 mg Metolazone (Zaroxolyn) 5 mg PO QAM [facility] Last Admin: 04/02/19 10:18 Dose: 5 mg Multivitamins (Hexavitamin) 1 tab PO DAILY [facility] Last Admin: 04/02/19 10:17 Dose: 1 tab Nicotine (Nicoderm Cq) 1 patch TD DAILY [facility] Stop: 04/28/19 23:59 Last Admin: 04/02/19 10:20 Dose: 1 patch Polyethylene Glycol (Miralax) 17 gm PO DAILY [facility] Last Admin: 03/30/19 10:08 Dose: Not Given Thiamine HCl (Vitamin B1 Tab) 100 mg PO DAILY [facility] Last Admin: 04/02/19 10:15 Dose: 100 mg Torsemide (Demadex) 20 mg PO DAILY [facility] Trazodone HCl (Desyrel) 100 mg PO HS PRN PRN Reason: Insomnia Last Admin: 03/29/19 21:16 Dose: 100 mg - Labs Labs: 04/01/19 14:10 04/01/19 14:10 PT 12.3 SECONDS (9.7-12.2) H 03/25/19 07:55 INR 1.1 03/25/19 07:55 APTT 38.0 SECONDS (21-34) H 03/25/19 07:55 Assessment and Plan - Assessment and Plan (Free Text) Assessment: Assessment and Plan Acute Kidney Injury Electrolyte and volume status remain controlled Will dialyze today if patient is setup with a schedule for outpatient dialysis Continue nephro supplement Hypertensive chronic kidney disease BP controlled Continue with current antihypertensive regimen Congestive heart failure Acute decompensation resolved; will continue with UF on HD Proteinuria Continue losartan to preserve residual renal function; Pain Continue with increased dose of gabapentin (100 mg q8h); <Arvin Smith - Last Filed: 04/03/19 06:58> Objective - Vital Signs/Intake and Output Vital Signs (last 24 hours): Temp Pulse Resp BP Pulse Ox 98.7 F 97 H 20 150/60 99 04/02/19 15:00 04/02/19 15:00 04/02/19 15:00 04/02/19 17:24 04/02/19 15:00 Intake and Output: 04/02/19 04/03/19 18:59 06:59 Intake Total 300 350 Balance 300 350 - Medications Medications: Current Medications Acetaminophen (Tylenol 325mg Tab) 650 mg PO Q6 PRN PRN Reason: Pain, moderate (4-7) Last Admin: 04/02/19 21:20 Dose: 650 mg Albuterol/Ipratropium (Duoneb 3 Mg/0.5 Mg (3 Ml) Ud) 3 ml INH RQ6 PRN PRN Reason: Shortness of Breath Amlodipine Besylate (Norvasc) 10 mg PO Q24H [facility] Last Admin: 04/02/19 09:00 Dose: 10 mg Apixaban (Eliquis) 5 mg PO BID [facility] Last Admin: 04/02/19 17:26 Dose: 5 mg Artificial Tears (Artificial Tears) 0 ml OU BID [facility] Last Admin: 04/02/19 17:26 Dose: 2 drop Ascorbic Acid (Vitamin C 500 Mg Tab) 500 mg PO DAILY [facility] Last Admin: 04/02/19 10:17 Dose: 500 mg Aspirin (Ecotrin) 81 mg PO DAILY [facility] Last Admin: 04/02/19 10:20 Dose: 81 mg Carvedilol (Coreg) 12.5 mg PO BID [facility] Last Admin: 04/02/19 17:24 Dose: 12.5 mg Dextrose (Dextrose 50% Inj) 0 ml IV STAT PRN; Protocol PRN Reason: Hypoglycemia Protocol Dextrose (Glutose 15) 0 gm PO ONCE PRN; Protocol PRN Reason: Hypoglycemia Protocol Docusate Sodium (Colace) 100 mg PO TID [facility] Last Admin: 03/31/19 10:08 Dose: Not Given Ergocalciferol (Drisdol 50,000 Intl Units Cap) 1 cap PO Q7D [facility] Stop: 05/05/19 12:01 Last Admin: 03/31/19 11:15 Dose: 1 cap Folic Acid (Folic Acid) 1 mg PO DAILY [facility] Last Admin: 04/02/19 10:17 Dose: 1 mg Gabapentin (Neurontin) 100 mg PO Q8H [facility] Last Admin: 04/03/19 06:17 Dose: 100 mg Glucagon (Glucagen Diagnostic Kit) 0 mg IM STAT PRN; Protocol PRN Reason: Hypoglycemia Protocol Hydralazine HCl (Apresoline) 50 mg PO Q8H [facility] Last Admin: 03/31/19 08:25 Dose: 50 mg Insulin Human Regular (Novolin R) 0 unit SC [facility]; Protocol Last Admin: 04/02/19 21:45 Dose: Not Given Losartan Potassium (Cozaar) 50 mg PO DAILY [facility] Last Admin: 04/02/19 10:20 Dose: 50 mg Metolazone (Zaroxolyn) 5 mg PO QAM [facility] Last Admin: 04/02/19 10:18 Dose: 5 mg Multivitamins (Hexavitamin) 1 tab PO DAILY [facility] Last Admin: 04/02/19 10:17 Dose: 1 tab Nicotine (Nicoderm Cq) 1 patch TD DAILY [facility] Stop: 04/28/19 23:59 Last Admin: 04/02/19 10:20 Dose: 1 patch Polyethylene Glycol (Miralax) 17 gm PO DAILY [facility] Last Admin: 03/30/19 10:08 Dose: Not Given Thiamine HCl (Vitamin B1 Tab) 100 mg PO DAILY [facility] Last Admin: 04/02/19 10:15 Dose: 100 mg Torsemide (Demadex) 20 mg PO DAILY [facility] Trazodone HCl (Desyrel) 100 mg PO HS PRN PRN Reason: Insomnia Last Admin: 04/02/19 21:21 Dose: 100 mg - Labs Labs: 04/01/19 14:10 04/01/19 14:10 PT 12.3 SECONDS (9.7-12.2) H 03/25/19 07:55 INR 1.1 03/25/19 07:55 APTT 38.0 SECONDS (21-34) H 03/25/19 07:55 Assessment and Plan (1) SUSANNAH (acute kidney injury) Status: Acute (2) Hypertensive chronic kidney disease Status: Acute (3) CHF (congestive heart failure) Status: Acute (4) Proteinuria Status: Chronic (5) Pain Status: Acute Attending/Attestation - Attestation I have personally seen and examined this patient.: Yes I have fully participated in the care of the patient.: Yes I have reviewed all pertinent clinical information, including history, physical exam and plan: Yes Notes (Text): Patient seen and examined; I agree with the resident's note as above with the following additions/edits: 58 yo F w/ pmh of htn, dm, CKD, admitted with acute decompensated diastolic CHF/pulm htn, and progressive renal failure; Deemed ESRD, awaiting outplacement HD placement; otherwise, stable volume and electrolyte status; next HD tomorrow, will keep on TTS schedule for now; Hypertensive ESRD, BP somewhat elevated, hydralazine put on hold as patient was just recently volume depleted, loop diuretic also on hold; will continue rest of current meds; CHF status stable, euvolemic on exam; 1L UF tomorrow on HD; Continue with losartan for anti-proteinuric control to preserve residual renal function.
[2019-04-03] MEDS: (Novolin R) Insulin Human Regular 100 units/ml vial SC SCH ×4 (07:30→22:07)
--- NOTE | 2019-04-03 08:11 | CP.PCM.PN ---
<Dai Helton V - Last Filed: 04/03/19 08:27> Objective - Vital Signs/Intake and Output Vital Signs (last 24 hours): Temp Pulse Resp BP Pulse Ox 98.7 F 97 H 20 150/60 99 04/02/19 15:00 04/02/19 15:00 04/02/19 15:00 04/02/19 17:24 04/02/19 15:00 Intake and Output: 04/03/19 04/03/19 06:59 18:59 Intake Total 350 Balance 350 - Medications Medications: Current Medications Acetaminophen (Tylenol 325mg Tab) 650 mg PO Q6 PRN PRN Reason: Pain, moderate (4-7) Last Admin: 04/02/19 21:20 Dose: 650 mg Albuterol/Ipratropium (Duoneb 3 Mg/0.5 Mg (3 Ml) Ud) 3 ml INH RQ6 PRN PRN Reason: Shortness of Breath Amlodipine Besylate (Norvasc) 10 mg PO Q24H [facility] Last Admin: 04/02/19 09:00 Dose: 10 mg Apixaban (Eliquis) 5 mg PO BID [facility] Last Admin: 04/02/19 17:26 Dose: 5 mg Artificial Tears (Artificial Tears) 0 ml OU BID [facility] Last Admin: 04/02/19 17:26 Dose: 2 drop Ascorbic Acid (Vitamin C 500 Mg Tab) 500 mg PO DAILY [facility] Last Admin: 04/02/19 10:17 Dose: 500 mg Aspirin (Ecotrin) 81 mg PO DAILY [facility] Last Admin: 04/02/19 10:20 Dose: 81 mg Carvedilol (Coreg) 12.5 mg PO BID [facility] Last Admin: 04/02/19 17:24 Dose: 12.5 mg Dextrose (Dextrose 50% Inj) 0 ml IV STAT PRN; Protocol PRN Reason: Hypoglycemia Protocol Dextrose (Glutose 15) 0 gm PO ONCE PRN; Protocol PRN Reason: Hypoglycemia Protocol Docusate Sodium (Colace) 100 mg PO TID [facility] Last Admin: 03/31/19 10:08 Dose: Not Given Ergocalciferol (Drisdol 50,000 Intl Units Cap) 1 cap PO Q7D [facility] Stop: 05/05/19 12:01 Last Admin: 03/31/19 11:15 Dose: 1 cap Folic Acid (Folic Acid) 1 mg PO DAILY [facility] Last Admin: 04/02/19 10:17 Dose: 1 mg Gabapentin (Neurontin) 100 mg PO Q8H [facility] Last Admin: 04/03/19 06:17 Dose: 100 mg Glucagon (Glucagen Diagnostic Kit) 0 mg IM STAT PRN; Protocol PRN Reason: Hypoglycemia Protocol Hydralazine HCl (Apresoline) 50 mg PO Q8H [facility] Last Admin: 03/31/19 08:25 Dose: 50 mg Insulin Human Regular (Novolin R) 0 unit SC ACHS [facility]; Protocol Last Admin: 04/03/19 07:30 Dose: Not Given Losartan Potassium (Cozaar) 50 mg PO DAILY [facility] Last Admin: 04/02/19 10:20 Dose: 50 mg Metolazone (Zaroxolyn) 5 mg PO QAM [facility] Last Admin: 04/02/19 10:18 Dose: 5 mg Multivitamins (Hexavitamin) 1 tab PO DAILY [facility] Last Admin: 04/02/19 10:17 Dose: 1 tab Nicotine (Nicoderm Cq) 1 patch TD DAILY [facility] Stop: 04/28/19 23:59 Last Admin: 04/02/19 10:20 Dose: 1 patch Polyethylene Glycol (Miralax) 17 gm PO DAILY [facility] Last Admin: 03/30/19 10:08 Dose: Not Given Thiamine HCl (Vitamin B1 Tab) 100 mg PO DAILY [facility] Last Admin: 04/02/19 10:15 Dose: 100 mg Torsemide (Demadex) 20 mg PO DAILY [facility] Trazodone HCl (Desyrel) 100 mg PO HS PRN PRN Reason: Insomnia Last Admin: 04/02/19 21:21 Dose: 100 mg - Labs Labs: 04/01/19 14:10 04/01/19 14:10 PT 12.3 SECONDS (9.7-12.2) H 03/25/19 07:55 INR 1.1 03/25/19 07:55 APTT 38.0 SECONDS (21-34) H 03/25/19 07:55 Attending/Attestation - Attestation I have personally seen and examined this patient.: Yes I have fully participated in the care of the patient.: Yes I have reviewed all pertinent clinical information, including history, physical exam and plan: Yes Notes (Text): Patient seen, examined, and case discussed with day-time resident. Patient reports she has right foot pain; notes she is on the Gabapentin but does not quell it. I re-emphasized to her this likely complication from her diabetes. Patient is eager to home; however we are awaiting outpatient dialysis placement; since she is first time dialysis during this hospitalization. Patient is medically optimized; awaiting outpatient placement. Assessment/Plan 1. ESRD on HD via Right Chest Permacath with maturation of Left Arm AVF pending starting 03/26/19: Assessment/Plan * Nephrology (Dr. Smith) help appreciated * Vascular surgery (Dr. Alvarez) help appreciated * Operative Note * 03/25/19: Perm-A-Cath right jugular vein * 03/25/19: Brachial AV bovie graft, left upper arm * Renal Biopsy (04/02/19): diabetic nephropathy, Class II B with segmental glomerulosclerosis; 23% global glomerulosclerosis, modertae interstitial fibriosis and moderate arteriosclerosis * Dialysis per nephrology * Pending outpatient placement since patient required dialysis during this admission 2. Acute decompensated diastolic congestive heart failure (HFpEF) Stable Assessment/Plan * Cardiology (Dr. Reynolds) help appreciated * Chest xray (03/30/19): no active disease * Chest Xray (03/25/19): right central venous catheter tip extending into the cavoatrial junction. Moderate venous congestion. Linerar atelectatic changes in the left mid lung zone. Additional linear consolidative changes in the right midlung zone. Patchy consolidative changes in the right lung base. * Aspirin 81mg PO daily * Coreg 12.5mg PO BID * Cozaar 50mg PO daily * Metolazone 5mg POqAM * Echo (03/17/19): moderate to severe concentric LVH, left ventricular function is normal, EF normal, normal LV segmental wall motion, severe pulm HTN, 3.Hypertension Assessment/Plan * Heart [facility] renal dialysis fluid restriction diet * Norvasc 10mg PO daily * Coreg 12.5 mg PO 2x/day * Lasix 40 mg PO 1x/day at 8 AM * Hydralazine 50mg PO TID-->on hold since 03/31/19 * Cozaar 50 mg PO at 10 AM * Patient is new on dialysis; underwent 4th session 04/01/19 4. Atrial Flutter Assessment/Plan * Coreg 12.5mg PO BID * Eliquis 5mg PO BID * Patient will require assistance for payment for the Eliquis and she can go to [email or web address] [email or web address] (click on nonvalvular Afib, then click on Cost/Savings/Support for instructions OR may call [phone] for assistance). * If for some reason the patient does NOT qualify for Eliquis assistance, patient understands that she would then placed on Coumadin and all that that entails (continued monitoring, diet). * Eliquis acquisition assistance form sent to [facility] medical [facility] representative by SANDIE Salas * I have filled out the form for the patient to receive Eliquis for discharge planning 5. Hx of Polysubstance Abuse Assessment/Plan * Upon Discharge will need to be provided with the following: * [place] QuitLine [phone] for help quitting smoking * AA [phone] for help discontinuing her daily beer drinking since the age of 12 * For help with Cocaine and Heroin abuse, she will need to go to www.[email or web address] to help finding meetings near her residence * Extensive conversation with patient on 03/28/19 about the dangers of Tobacco, He roine, Cocaine, and Alcohol and the importance of following up with support groups to increase her chances of abstinence * Folic acid 1mg PO daily * MVI 1 tab PO daily * Thiamine 100mg PO daily 6. Constipation, resolved 7. Hx IDDM2 with neuropathy Assessment/Plan * Regular insulin sliding scale subqACHS * Hypoglycemic protocol * Aspirin 81mg PO daily * Cozaar 50mg PO daily * Gabapentin 100mg PO TID * hgba1c: 6.0 (controlled) 8. Hepatic steatosis, chronic Assessment/Plan * HIV and hepatitis negative * Abd US: mild hepatomegaly. Diffuse increased echogenicity in the liver may reflect hepatic steatosis. Nodular contour of the liver could represent cirrhosis. Medical renal disease. Gallbladder is contracted but no cholelithiasis. Mild diffuse dilation of the common bile duct without evidence for choledocholithiasis. * CT A/P: Hepatomegaly noted without focal mass or gross intrahepatic biliary duct dilatation. Mild anasarca. * Hepatobiliary surgeon consulted (Wilson) evaluated during hospital 9. Hx Adrenal Adenoma/Mass Assessment/Plan * Outpatient follow up 10. Vitamin D deficiency- suspect 2/2 kidney disease Assessment/Plan * 25-OH vit D <12.5 * Vitamin D 50,000 IU Q1WK on 03/20 (Friday) x 8 doses 11. PPX: * Pt on Eliquis 5 mg PO BID * Pepcid 20 mg PO daily Disposition: pending outpatient dialysis. <Elenita OreillyLena - Last Filed: 04/03/19 16:08> Subjective - Date & Time of Evaluation Date of Evaluation: 04/03/19 Time of Evaluation: 08:11 - Subjective Subjective: Progress note for Dr. Helton Patient was seen and examined at bedside in no acute distress. Patient was getting dialysis. Patient reports feeling well but complains of her chronic neuropathy (not worsening) and that she hasn't had a BM in 2 days. She is passing flatus. She has no additional complaints and denies chest pain, palpita tions, dyspnea, cough, n/v, abdominal pain, dizziness, and headaches. No events overnight. Objective - Vital Signs/Intake and Output Vital Signs (last 24 hours): Temp Pulse Resp BP Pulse Ox 98.7 F 97 H 20 150/60 99 04/02/19 15:00 04/02/19 15:00 04/02/19 15:00 04/02/19 17:24 04/02/19 15:00 Intake and Output: 04/03/19 04/03/19 06:59 18:59 Intake Total 350 Balance 350 - Medications Medications: Current Medications Acetaminophen (Tylenol 325mg Tab) 650 mg PO Q6 PRN PRN Reason: Pain, moderate (4-7) Last Admin: 04/02/19 21:20 Dose: 650 mg Albuterol/Ipratropium (Duoneb 3 Mg/0.5 Mg (3 Ml) Ud) 3 ml INH RQ6 PRN PRN Reason: Shortness of Breath Amlodipine Besylate (Norvasc) 10 mg PO Q24H [facility] Last Admin: 04/02/19 09:00 Dose: 10 mg Apixaban (Eliquis) 5 mg PO BID [facility] Last Admin: 04/02/19 17:26 Dose: 5 mg Artificial Tears (Artificial Tears) 0 ml OU BID [facility] Last Admin: 04/02/19 17:26 Dose: 2 drop Ascorbic Acid (Vitamin C 500 Mg Tab) 500 mg PO DAILY [facility] Last Admin: 04/02/19 10:17 Dose: 500 mg Aspirin (Ecotrin) 81 mg PO DAILY [facility] Last Admin: 04/02/19 10:20 Dose: 81 mg Carvedilol (Coreg) 12.5 mg PO BID [facility] Last Admin: 04/02/19 17:24 Dose: 12.5 mg Dextrose (Dextrose 50% Inj) 0 ml IV STAT PRN; Protocol PRN Reason: Hypoglycemia Protocol Dextrose (Glutose 15) 0 gm PO ONCE PRN; Protocol PRN Reason: Hypoglycemia Protocol Docusate Sodium (Colace) 100 mg PO TID [facility] Last Admin: 03/31/19 10:08 Dose: Not Given Ergocalciferol (Drisdol 50,000 Intl Units Cap) 1 cap PO Q7D [facility] Stop: 05/05/19 12:01 Last Admin: 03/31/19 11:15 Dose: 1 cap Folic Acid (Folic Acid) 1 mg PO DAILY [facility] Last Admin: 04/02/19 10:17 Dose: 1 mg Gabapentin (Neurontin) 100 mg PO Q8H [facility] Last Admin: 04/03/19 06:17 Dose: 100 mg Glucagon (Glucagen Diagnostic Kit) 0 mg IM STAT PRN; Protocol PRN Reason: Hypoglycemia Protocol Hydralazine HCl (Apresoline) 50 mg PO Q8H [facility] Last Admin: 03/31/19 08:25 Dose: 50 mg Insulin Human Regular (Novolin R) 0 unit SC [facility]; Protocol Last Admin: 04/02/19 21:45 Dose: Not Given Losartan Potassium (Cozaar) 50 mg PO DAILY [facility] Last Admin: 04/02/19 10:20 Dose: 50 mg Metolazone (Zaroxolyn) 5 mg PO QAM [facility] Last Admin: 04/02/19 10:18 Dose: 5 mg Multivitamins (Hexavitamin) 1 tab PO DAILY [facility] Last Admin: 04/02/19 10:17 Dose: 1 tab Nicotine (Nicoderm Cq) 1 patch TD DAILY [facility] Stop: 04/28/19 23:59 Last Admin: 04/02/19 10:20 Dose: 1 patch Polyethylene Glycol (Miralax) 17 gm PO DAILY [facility] Last Admin: 03/30/19 10:08 Dose: Not Given Thiamine HCl (Vitamin B1 Tab) 100 mg PO DAILY [facility] Last Admin: 04/02/19 10:15 Dose: 100 mg Torsemide (Demadex) 20 mg PO DAILY [facility] Trazodone HCl (Desyrel) 100 mg PO HS PRN PRN Reason: Insomnia Last Admin: 04/02/19 21:21 Dose: 100 mg - Labs Labs: 04/01/19 14:10 04/01/19 14:10 PT 12.3 SECONDS (9.7-12.2) H 03/25/19 07:55 INR 1.1 03/25/19 07:55 APTT 38.0 SECONDS (21-34) H 03/25/19 07:55 - Constitutional Appears: No Acute Distress - Head Exam Head Exam: ATRAUMATIC, NORMAL INSPECTION - Eye Exam Eye Exam: EOMI - ENT Exam ENT Exam: Mucous Membranes Moist - Respiratory Exam Respiratory Exam: Clear to Ausculation Bilateral, NORMAL BREATHING PATTERN. absent: Rales, Rhonchi, Wheezes - Cardiovascular Exam Cardiovascular Exam: Irregular Rhythm, +S1, +S2 - GI/Abdominal Exam GI & Abdominal Exam: Soft, Normal Bowel Sounds. absent: Distended, Firm, Guarding, Tenderness - Extremities Exam Extremities Exam: Normal Inspection. absent: Pedal Edema, Tenderness - Neurological Exam Neurological Exam: Alert, Awake, Oriented x3 - Psychiatric Exam Psychiatric exam: Normal Affect, Normal Mood - Skin Skin Exam: Dry, Normal Color, Warm Assessment and Plan - Assessment and Plan (Free Text) Plan: Patient is a 58 yo female with CKD, HTN, T2DM, and polysubstance use (heroin and cocaine) who presented with leg swelling and abdominal pain. Patient found to have worsening kidney disease and severe constipation. Echo notable for severe pulm HTN. Patient also Patient had L renal biopsy on 03/22- diabetic nephropathy. Patient had AV graft and permacath placed 03/25. Started on HD on 03/26. Plan: ESRD on HD via Right Chest Permacath with maturation of Left Arm AVF pending starting 03/26/19: - Nephrology (Dr. Smith) help appreciated - Vascular surgery (Dr. Alvarez) help appreciated - Kidney biopsy pathology shows diabetic nephropathy, class IIb with segmental glomerulosclerosis. - S/p Perm-A-Cath right jugular vein (03/25/19) and Brachial AV bovie graft, left upper arm (03/25/19) - S/p 5th round of HD 04/03/19, well tolerated - Reiterated that she will need to enlist the help of her family and friends because if she misses her HD she will not only lose her spot for HD, but that her health would decline. - Case management working on outpatient HD placement and transportation to and from. Acute decompensated diastolic congestive heart failure (HFpEF), improving - Cardiology (Dr. Reynolds) help appreciated - CXR: cardiomegaly, L pleural effusion - EKG: NSR, PVCs - LE Dopplers: no DVT - Echo: EF 62%, mod-severe LVH, severe pulm HTN, mod TR - CT A/P: Mild CHF suspected. [id number] left and mild right pleural effu sions identified. - BNP 31,300--> 12,300 - Trop negative - Monitor on telemetry - Fluid restriction 1500 mL - Strict Is & Os, Daily weights - Medications: * Duoneb Q6H PRN * Coreg to 12.5 mg PO BID (10am, 6pm) * Metolazone 5 mg PO daily (10am) * Torsemide 20mg PO daily Uncontrolled HTN, improving - Norvasc 10 mg PO daily at 8 AM - Coreg 12.5 mg PO BID at 10 AM and 6 PM - Torsemide 20mg PO daily - Hydralazine 25 mg PO TID at 10 AM, 2 PM, and 6 PM - Cozaar 25 mg PO at 10 AM Atrial Flutter - Continue Coreg 12.5 mg PO BID * Spout Tender, Dr. Mckenzie, is ok with Coreg and does recommend Eliquis which was started 03/27/19 - Eliquis 5 mg PO BID - Patient will require assistance for payment for the Eliquis and she can go to [email or web address] (click on nonvalvular Afib, then click on - Cost/Savings/Support for instructions OR may call [phone] for assistance). - If for some reason the patient does NOT qualify for Eliquis assistance, patient understands that she would then placed on Coumadin and all that that entails -(continued monitoring, diet). - Eliquis acquisition assistance form sent to [facility] representative by SANDIE Khan of Polysubstance Abuse - Upon Discharge will need to be provided with the following: * [place] QuitLine [phone] for help quitting smoking * AA [phone] for help discontinuing her daily beer drinking since the age of 12 * For help with Cocaine and Heroin abuse, she will need to go to www.[employer].org to help finding meetings near her residence - Extensive conversation with patient on 03/28/19 about the dangers of Tobacco, Heroine, Cocaine, and Alcohol and the importance of following up with support groups to increase her chances of abstinence - Continue Thiamine, MV, Folic acid - Continue Nicotine patch Intermittent chest pain, 03/30/19; resolved - CXR shows no active disease - Troponin was negative - EKG shows NSR at 60, nonspecific STTW changes - Continue to monitor Nonproductive Cough, resolved - Afebrile, no leukocytosis - CXR shows no acute changes - Vitamin C 500 mg PO once daily Constipation - Resumed Colace 100mg PO BID - Miralax on hold due to loose bowel movements 3 days ago Hx IDDM2 with neuropathy - Continue to hold home Jardiance due to ESRD - Continue to monitor blood glucose; well controlled at this time - Consult placed for Educational Assistant Nurse Hilton at [facility] 03/27/19 to come see patient this coming week to teach patient how to administer insulin and to measure insulin: Head Of Sales Cathy placed call on 03/27/19 - Continue ASA, Cozaar 25 mg PO at 10 AM, Gabapentin 100 mg PO Q8h for neuropathy Hepatic steatosis, chronic - HIV and hepatitis negative - Abd US: mild hepatomegaly. Diffuse increased echogenicity in the liver may reflect hepatic steatosis. Nodular contour of the liver could represent cirrhosis. Medical renal disease. Gallbladder is contracted but no cholelithiasis. Mild diffuse dilation of the common bile duct without evidence for choledocholithiasis. - CT Abd/Pel: Hepatomegaly noted without focal mass or gross intrahepatic biliary duct dilatation. Mild anasarca. - Hepatobiliary surgeon consulted (Wilson) Hx Adrenal Adenoma/Mass - Outpatient follow up Vitamin D deficiency- suspect 2/2 kidney disease - 25-OH vit D <12.5 - Vitamin D 50,000 IU Q1WK on 03/20 (Friday) x 8 doses PPX: - Pt on Eliquis 5 mg PO BID - Pepcid 20 mg PO daily - PT will eval and treat pt for foot pain Plan: Pending outpatient HD placement, tolerating HD well. Case discussed with Dr. Sunitha Gama, PGY 2
[2019-04-03] MEDS: Multiple Vitamins Tab PO SCH (09:48)
[2019-04-03] MEDS: metOLazone 5 MG TAB PO SCH (09:48)
[2019-04-03] MEDS: Aritificial Tears (15ml) OU SCH ×2 (09:48→18:12)
[2019-04-03 12:46] LABS: HEMOGLOBIN 12.4 g/dL (11.0-16.0); MEAN CELL VOLUME 93.2 fL (81.0-99.0); MEAN CORPUSCULAR HEMOGLOBIN 30.8 pg (27.0-31.0); MEAN CORPUSCULAR HGB CONC 33.1 g/dL (33.0-37.0); MEAN PLATELET VOLUME 9.9 fL (7.2-11.7); RBC 4.01 Mil/uL (3.80-5.20); RED CELL DISTRIBUTION WIDTH 14.5 % (11.5-14.5); WHITE BLOOD COUNT 7.1 K/uL (4.8-10.8)
[2019-04-03 13:15] LABS: ALB/GLOB RATIO 1.2 (1.0-2.1); ALBUMIN 3.5 g/dL (3.5-5.0); CALCIUM 9.3 mg/dl (8.6-10.4)
[2019-04-03 15:20] VITALS: RESP 20
[2019-04-03 21:59] LABS: BARBITURATES, UR NEGATIVE (NEGATIVE); BENZODIAZEPINES, UR NEGATIVE (NEGATIVE); PHENCYCLIDINE, UR NEGATIVE (NEGATIVE)
[2019-04-03 22:00] LABS: OPIATES, UR POSITIVE (NEGATIVE)
--- NOTE | 2019-04-03 23:20 | CP.PCM.PN ---
Objective - Vital Signs/Intake and Output Vital Signs (last 24 hours): Temp Pulse Resp BP Pulse Ox 98.8 F 78 20 148/78 98 04/03/19 18:41 04/03/19 18:41 04/03/19 18:41 04/03/19 21:13 04/03/19 18:41 Intake and Output: 04/03/19 04/04/19 18:59 06:59 Intake Total 250 Balance 250 - Medications Medications: Current Medications Acetaminophen (Tylenol 325mg Tab) 650 mg PO Q6 PRN PRN Reason: Pain, moderate (4-7) Last Admin: 04/03/19 15:22 Dose: 650 mg Albuterol/Ipratropium (Duoneb 3 Mg/0.5 Mg (3 Ml) Ud) 3 ml INH RQ6 PRN PRN Reason: Shortness of Breath Amlodipine Besylate (Norvasc) 10 mg PO Q24H [facility] Last Admin: 04/03/19 08:30 Dose: 10 mg Apixaban (Eliquis) 5 mg PO BID [facility] Last Admin: 04/03/19 18:10 Dose: 5 mg Artificial Tears (Artificial Tears) 0 ml OU BID [facility] Last Admin: 04/03/19 18:12 Dose: 1 drop Ascorbic Acid (Vitamin C 500 Mg Tab) 500 mg PO DAILY [facility] Last Admin: 04/03/19 09:53 Dose: 500 mg Aspirin (Ecotrin) 81 mg PO DAILY [facility] Last Admin: 04/03/19 09:53 Dose: 81 mg Carvedilol (Coreg) 12.5 mg PO BID [facility] Last Admin: 04/03/19 21:13 Dose: 12.5 mg Dextrose (Dextrose 50% Inj) 0 ml IV STAT PRN; Protocol PRN Reason: Hypoglycemia Protocol Dextrose (Glutose 15) 0 gm PO ONCE PRN; Protocol PRN Reason: Hypoglycemia Protocol Docusate Sodium (Colace) 100 mg PO BID [facility] Last Admin: 04/03/19 18:09 Dose: Not Given Ergocalciferol (Drisdol 50,000 Intl Units Cap) 1 cap PO Q7D [facility] Stop: 05/05/19 12:01 Last Admin: 03/31/19 11:15 Dose: 1 cap Folic Acid (Folic Acid) 1 mg PO DAILY [facility] Last Admin: 04/03/19 09:53 Dose: 1 mg Gabapentin (Neurontin) 100 mg PO Q8H [facility] Last Admin: 04/03/19 21:13 Dose: 100 mg Glucagon (Glucagen Diagnostic Kit) 0 mg IM STAT PRN; Protocol PRN Reason: Hypoglycemia Protocol Hydralazine HCl (Apresoline) 50 mg PO Q8H [facility] Last Admin: 03/31/19 08:25 Dose: 50 mg Insulin Human Regular (Novolin R) 0 unit SC ACHS [facility]; Protocol Last Admin: 04/03/19 22:07 Dose: Not Given Losartan Potassium (Cozaar) 50 mg PO DAILY [facility] Last Admin: 04/03/19 15:24 Dose: 50 mg Metolazone (Zaroxolyn) 5 mg PO QAM [facility] Last Admin: 04/03/19 09:48 Dose: 5 mg Multivitamins (Hexavitamin) 1 tab PO DAILY [facility] Last Admin: 04/03/19 09:48 Dose: 1 tab Nicotine (Nicoderm Cq) 1 patch TD DAILY [facility] Stop: 04/28/19 23:59 Last Admin: 04/03/19 09:46 Dose: 1 patch Polyethylene Glycol (Miralax) 17 gm PO DAILY [facility] Last Admin: 03/30/19 10:08 Dose: Not Given Thiamine HCl (Vitamin B1 Tab) 100 mg PO DAILY [facility] Last Admin: 04/03/19 09:54 Dose: 100 mg Torsemide (Demadex) 20 mg PO DAILY [facility] Trazodone HCl (Desyrel) 100 mg PO HS PRN PRN Reason: Insomnia Last Admin: 04/03/19 21:16 Dose: 100 mg - Labs Labs: 04/03/19 12:43 04/03/19 12:43 PT 12.3 SECONDS (9.7-12.2) H 03/25/19 07:55 INR 1.1 03/25/19 07:55 APTT 38.0 SECONDS (21-34) H 03/25/19 07:55 Assessment and Plan (1) SUSANNAH (acute kidney injury) Status: Acute (2) Hypertensive chronic kidney disease Status: Acute (3) CHF (congestive heart failure) Status: Acute (4) Proteinuria Status: Chronic (5) Pain Status: Acute
[2019-04-04] MEDS: (Novolin R) Insulin Human Regular 100 units/ml vial SC SCH ×4 (07:33→22:01)
--- NOTE | 2019-04-04 07:58 | CP.PCM.PN ---
<Elenita Oreilly - Last Filed: 04/04/19 16:24> Subjective - Date & Time of Evaluation Date of Evaluation: 04/04/19 Time of Evaluation: 07:50 - Subjective Subjective: Progress note for Dr. Helton Patient was seen and examined at bedside in no acute distress. Patient reports feeling better than yesterday, denies diarrhea, but still feels weak/tired. She currently denies chest pain, palpitations, dyspnea, cough, abdominal pain, n/v, diarrhea, constipation, leg swelling. No acute events overnight. Objective - Vital Signs/Intake and Output Vital Signs (last 24 hours): Temp Pulse Resp BP Pulse Ox 98.2 F 60 20 109/60 98 04/04/19 04:00 04/04/19 04:00 04/04/19 04:00 04/04/19 04:00 04/04/19 04:00 Intake and Output: 04/04/19 04/04/19 06:59 18:59 Intake Total 240 Output Total 100 Balance 140 - Medications Medications: Current Medications Acetaminophen (Tylenol 325mg Tab) 650 mg PO Q6 PRN PRN Reason: Pain, moderate (4-7) Last Admin: 04/03/19 15:22 Dose: 650 mg Albuterol/Ipratropium (Duoneb 3 Mg/0.5 Mg (3 Ml) Ud) 3 ml INH RQ6 PRN PRN Reason: Shortness of Breath Amlodipine Besylate (Norvasc) 10 mg PO Q24H [facility] Last Admin: 04/03/19 08:30 Dose: 10 mg Apixaban (Eliquis) 5 mg PO BID [facility] Last Admin: 04/03/19 18:10 Dose: 5 mg Artificial Tears (Artificial Tears) 0 ml OU BID [facility] Last Admin: 04/03/19 18:12 Dose: 1 drop Ascorbic Acid (Vitamin C 500 Mg Tab) 500 mg PO DAILY [facility] Last Admin: 04/03/19 09:53 Dose: 500 mg Aspirin (Ecotrin) 81 mg PO DAILY [facility] Last Admin: 04/03/19 09:53 Dose: 81 mg Carvedilol (Coreg) 12.5 mg PO BID [facility] Last Admin: 04/03/19 21:13 Dose: 12.5 mg Dextrose (Dextrose 50% Inj) 0 ml IV STAT PRN; Protocol PRN Reason: Hypoglycemia Protocol Dextrose (Glutose 15) 0 gm PO ONCE PRN; Protocol PRN Reason: Hypoglycemia Protocol Docusate Sodium (Colace) 100 mg PO BID [facility] Last Admin: 04/03/19 18:09 Dose: Not Given Ergocalciferol (Drisdol 50,000 Intl Units Cap) 1 cap PO Q7D [facility] Stop: 05/05/19 12:01 Last Admin: 03/31/19 11:15 Dose: 1 cap Folic Acid (Folic Acid) 1 mg PO DAILY [facility] Last Admin: 04/03/19 09:53 Dose: 1 mg Gabapentin (Neurontin) 100 mg PO Q8H [facility] Last Admin: 04/04/19 05:43 Dose: 100 mg Glucagon (Glucagen Diagnostic Kit) 0 mg IM STAT PRN; Protocol PRN Reason: Hypoglycemia Protocol Hydralazine HCl (Apresoline) 50 mg PO Q8H [facility] Last Admin: 03/31/19 08:25 Dose: 50 mg Insulin Human Regular (Novolin R) 0 unit SC ACHS [facility]; Protocol Last Admin: 04/04/19 07:33 Dose: Not Given Losartan Potassium (Cozaar) 50 mg PO DAILY [facility] Last Admin: 04/03/19 15:24 Dose: 50 mg Metolazone (Zaroxolyn) 5 mg PO QAM [facility] Last Admin: 04/03/19 09:48 Dose: 5 mg Multivitamins (Hexavitamin) 1 tab PO DAILY [facility] Last Admin: 04/03/19 09:48 Dose: 1 tab Nicotine (Nicoderm Cq) 1 patch TD DAILY [facility] Stop: 04/28/19 23:59 Last Admin: 04/03/19 09:46 Dose: 1 patch Polyethylene Glycol (Miralax) 17 gm PO DAILY [facility] Last Admin: 03/30/19 10:08 Dose: Not Given Thiamine HCl (Vitamin B1 Tab) 100 mg PO DAILY [facility] Last Admin: 04/03/19 09:54 Dose: 100 mg Torsemide (Demadex) 20 mg PO DAILY [facility] Trazodone HCl (Desyrel) 100 mg PO HS PRN PRN Reason: Insomnia Last Admin: 04/03/19 21:16 Dose: 100 mg - Labs Labs: 04/03/19 12:43 04/03/19 12:43 PT 12.3 SECONDS (9.7-12.2) H 03/25/19 07:55 INR 1.1 03/25/19 07:55 APTT 38.0 SECONDS (21-34) H 03/25/19 07:55 - Additional Findings Additional findings: - Constitutional Appears: No Acute Distress - Head Exam Head Exam: ATRAUMATIC, NORMAL INSPECTION - Eye Exam Eye Exam: EOMI - ENT Exam ENT Exam: Mucous Membranes Moist - Respiratory Exam Respiratory Exam: Clear to Ausculation Bilateral, NORMAL BREATHING PATTERN. absent: Rales, Rhonchi, Wheezes - Cardiovascular Exam Cardiovascular Exam: Irregular Rhythm, +S1, +S2 - GI/Abdominal Exam GI & Abdominal Exam: Soft, Normal Bowel Sounds. absent: Distended, Firm, Guarding, Tenderness - Extremities Exam Extremities Exam: Normal Inspection. absent: Pedal Edema, Tenderness - Neurological Exam Neurological Exam: Alert, Awake, Oriented x3 - Psychiatric Exam Psychiatric exam: Normal Affect, Normal Mood - Skin Skin Exam: Dry, Normal Color, Warm Assessment and Plan - Assessment and Plan (Free Text) Plan: Patient is a 58 yo female with CKD, HTN, T2DM, and polysubstance use (heroin and cocaine) who presented with leg swelling and abdominal pain. Patient found to have worsening kidney disease and severe constipation. Echo notable for severe pulm HTN. Patient also Patient had L renal biopsy on 03/22- diabetic nephropathy. Patient had AV graft and permacath placed 03/25. Started on HD on 03/26. Plan: ESRD on HD via Right Chest Permacath with maturation of Left Arm AVF pending starting 03/26/19: - Nephrology (Dr. Smith) help appreciated - Vascular surgery (Dr. Alvarez) help appreciated - Kidney biopsy pathology shows diabetic nephropathy, class IIb with segmental glomerulosclerosis. - S/p Perm-A-Cath right jugular vein (03/25/19) and Brachial AV bovie graft, left upper arm (03/25/19) - S/p 5th round of HD 04/03/19, well tolerated - Reiterated that she will need to enlist the help of her family and friends because if she misses her HD she will not only lose her spot for HD, but that her health would decline. - Case management working on outpatient HD placement and transportation to and from. Acute decompensated diastolic congestive heart failure (HFpEF), improving - Cardiology (Dr. Reynolds) help appreciated - CXR: cardiomegaly, L pleural effusion - EKG: NSR, PVCs - LE Dopplers: no DVT - Echo: EF 62%, mod-severe LVH, severe pulm HTN, mod TR - CT A/P: Mild CHF suspected. [id number] left and mild right pleural effusions identified. - BNP 31,300--> 12,300 - Trop negative - Monitor on telemetry - Fluid restriction 1500 mL - Strict Is & Os, Daily weights - Medications: * Duoneb Q6H PRN * Coreg to 12.5 mg PO BID (10am, 6pm) * Metolazone 5 mg PO daily (10am) * Torsemide 20mg PO daily- HELD Uncontrolled HTN, improving - Norvasc 10 mg PO daily at 8 AM - Coreg 12.5 mg PO BID at 10 AM and 6 PM - Torsemide 20mg PO daily- HELD - Hydralazine 25 mg PO TID at 10 AM, 2 PM, and 6 PM - Cozaar 25 mg PO at 10 AM Atrial Flutter - Continue Coreg 12.5 mg PO BID * Retail Sales Professional, Dr. Mckenzie, is ok with Coreg and does recommend Eliquis which was started 03/27/19 - Eliquis 5 mg PO BID - Patient will require assistance for payment for the Eliquis and she can go to [email or web address] (click on nonvalvular Afib, then click on - Cost/Savings/Support for instructions OR may call [phone] for assistance). - If for some reason the patient does NOT qualify for Eliquis assistance, patient understands that she would then placed on Coumadin and all that that entails -(continued monitoring, diet). - Eliquis acquisition assistance form sent to [employer] promotions representative by SANDIE Khan of Polysubstance Abuse - Upon Discharge will need to be provided with the following: * [place] QuitLine [phone] for help quitting smoking * AA [phone] for help discontinuing her daily beer drinking since the age of 12 * For help with Cocaine and Heroin abuse, she will need to go to [email or web address] to help finding meetings near her residence - Extensive conversation with patient on 03/28/19 about the dangers of Tobacco, Heroine, Cocaine, and Alcohol and the importance of following up with support groups to increase her chances of abstinence - Continue Thiamine, MV, Folic acid - Continue Nicotine patch Patient admitted to snorting heroin 3 days ago (friend brought it to the hospital) and reports having withdrawals. Patient is asking for Methadone. UDS was ordered and positive for bother opiates and cannabinoids. Avysys placed in her room- patient refused, ordered telemetry-patient refused, and requested security to perform search. Will also notify psychiatrist was has been consulted during this admission. Per psychiatrist, Patient does not need methadone. Intermittent chest pain, 03/30/19; resolved - CXR shows no active disease - Troponin was negative - EKG shows NSR at 60, nonspecific STTW changes - Continue to monitor Nonproductive Cough, resolved - Afebrile, no leukocytosis - CXR shows no acute changes - Vitamin C 500 mg PO once daily Constipation - Resumed Colace 100mg PO BID prn Hx IDDM2 with neuropathy - Continue to hold home Jardiance due to ESRD - Continue to monitor blood glucose; well controlled at this time - Consult placed for Kerfer Machine Operator Nurse Hilton at [facility] 03/27/19 to come see patient this coming week to teach patient how to administer insulin and to measure insulin: Tool Pusher Cathy placed call on 03/27/19 - Continue ASA, Cozaar 25 mg PO at 10 AM, Gabapentin 100 mg PO Q8h for neuropathy Hepatic steatosis, chronic - HIV and hepatitis negative - Abd US: mild hepatomegaly. Diffuse increased echogenicity in the liver may reflect hepatic steatosis. Nodular contour of the liver could represent cirrhosis. Medical renal disease. Gallbladder is contracted but no ch olelithiasis. Mild diffuse dilation of the common bile duct without evidence for choledocholithiasis. - CT Abd/Pel: Hepatomegaly noted without focal mass or gross intrahepatic biliary duct dilatation. Mild anasarca. - Hepatobiliary surgeon consulted (Wilson) Hx Adrenal Adenoma/Mass - Outpatient follow up Vitamin D deficiency- suspect 2/2 kidney disease - 25-OH vit D <12.5 - Vitamin D 50,000 IU Q1WK on 03/20 (Friday) x 8 doses PPX - Pt on Eliquis 5 mg PO BID - Pepcid 20 mg PO daily - PT will eval and treat pt for foot pain Plan: Pending outpatient HD placement, tolerating HD well. Case discussed with Dr. Sunitha Gama, PGY 2 <Dai Helton V - Last Filed: 04/04/19 17:14> Objective - Vital Signs/Intake and Output Vital Signs (last 24 hours): Temp Pulse Resp BP Pulse Ox 98.2 F 62 20 109/56 L 98 04/04/19 04:00 04/04/19 07:48 04/04/19 04:00 04/04/19 09:33 04/04/19 04:00 Intake and Output: 04/04/19 04/04/19 06:59 18:59 Intake Total 240 Output Total 100 Balance 140 - Medications Medications: Current Medications Acetaminophen (Tylenol 325mg Tab) 650 mg PO Q6 PRN PRN Reason: Pain, moderate (4-7) Last Admin: 04/03/19 15:22 Dose: 650 mg Albuterol/Ipratropium (Duoneb 3 Mg/0.5 Mg (3 Ml) Ud) 3 ml INH RQ6 PRN PRN Reason: Shortness of Breath Amlodipine Besylate (Norvasc) 10 mg PO Q24H [facility] Last Admin: 04/04/19 08:00 Dose: 10 mg Apixaban (Eliquis) 5 mg PO BID [facility] Last Admin: 04/04/19 09:26 Dose: 5 mg Ascorbic Acid (Vitamin C 500 Mg Tab) 500 mg PO DAILY [facility] Last Admin: 04/04/19 09:27 Dose: 500 mg Aspirin (Ecotrin) 81 mg PO DAILY [facility] Last Admin: 04/04/19 09:26 Dose: 81 mg Carvedilol (Coreg) 12.5 mg PO BID [facility] Last Admin: 04/04/19 09:33 Dose: Not Given Dextrose (Dextrose 50% Inj) 0 ml IV STAT PRN; Protocol PRN Reason: Hypoglycemia Protocol Dextrose (Glutose 15) 0 gm PO ONCE PRN; Protocol PRN Reason: Hypoglycemia Protocol Docusate Sodium (Colace) 100 mg PO BID PRN PRN Reason: Constipation Ergocalciferol (Drisdol 50,000 Intl Units Cap) 1 cap PO Q7D [facility] Stop: 05/05/19 12:01 Last Admin: 03/31/19 11:15 Dose: 1 cap Folic Acid (Folic Acid) 1 mg PO DAILY [facility] Last Admin: 04/04/19 09:26 Dose: 1 mg Gabapentin (Neurontin) 100 mg PO Q8H [facility] Last Admin: 04/04/19 14:44 Dose: Not Given Glucagon (Glucagen Diagnostic Kit) 0 mg IM STAT PRN; Protocol PRN Reason: Hypoglycemia Protocol Hydralazine HCl (Apresoline) 50 mg PO Q8H [facility] Last Admin: 03/31/19 08:25 Dose: 50 mg Hydroxyzine HCl (Atarax) 25 mg PO Q6H PRN PRN Reason: Anxiety Insulin Human Regular (Novolin R) 0 unit SC ACHS [facility]; Protocol Last Admin: 04/04/19 14:43 Dose: Not Given Lorazepam (Ativan) 0.5 mg PO Q12H PRN PRN Reason: severe anxiety Losartan Potassium (Cozaar) 50 mg PO DAILY [facility] Last Admin: 04/04/19 09:33 Dose: Not Given Metolazone (Zaroxolyn) 5 mg PO QAM [facility] Last Admin: 04/04/19 09:36 Dose: Not Given Multivitamins (Hexavitamin) 1 tab PO DAILY [facility] Last Admin: 04/04/19 09:25 Dose: 1 tab Nicotine (Nicoderm Cq) 1 patch TD DAILY [facility] Stop: 04/28/19 23:59 Last Admin: 04/04/19 09:34 Dose: Not Given Thiamine HCl (Vitamin B1 Tab) 100 mg PO DAILY [facility] Last Admin: 04/04/19 09:25 Dose: 100 mg Torsemide (Demadex) 20 mg PO DAILY [facility] Trazodone HCl (Desyrel) 100 mg PO HS PRN PRN Reason: Insomnia Last Admin: 04/03/19 21:16 Dose: 100 mg - Labs Labs: 04/03/19 12:43 04/03/19 12:43 PT 12.3 SECONDS (9.7-12.2) H 03/25/19 07:55 INR 1.1 03/25/19 07:55 APTT 38.0 SECONDS (21-34) H 03/25/19 07:55 Attending/Attestation - Attestation I have personally seen and examined this patient.: Yes I have fully participated in the care of the patient.: Yes I have reviewed all pertinent clinical information, including history, physical exam and plan: Yes Notes (Text): Patient seen, examined, and case discussed with day-time resident. I have quite a discussion with the patient today. She admits she did take heroin, whom she asked a friend to bring in for her two days ago. I did again reemphasized to her by doing this, she put not only herself at risk for heart attack, deadly heart arthymias, and but the safety of others and our staff. I also indicate to her that she was off her telemetry given she was stable prior to her admittance to her drug use. She reports she is frustated by staying at the hospital. I did indicate her that this hospitalization is dif ferent compared to her others, because she was diagnosed with heart failure and she was placed on dialysis and she is without a dialysis center as outpatient. Though I understand her frustration, that does not give her the right to do drugs. She knows she has an addiction and she also knows that her friend who gave into her request is not a friend that supports her in her road to soberity. Patient is requesting for methadone. I advised her again with her heart failure and kidney, that methadone is probably not the best option for her. She is requesting for methadone; reporting she is feeling bad and weak and does not want to withdraw in front of family. I told her I will differ the psych (ad diction specialist). I spoke with Dr. Garrison who is familar with the patient from prior admissions and this recent event. Patient noted to be clinically dry. Resident has reached out to nephrology in [place] to iv fluids given she is borderline hypotension. Patient is refusing her meds at this time. Patient placed back on telemetry as of yesterday evening, I have endorsed to the nursing, to bring the patient to closer to nursing station and if patient has guests and appears under the influence of drugs that she may need to be searched. Incident report was filed yesterday. Assessment/Plan 1. ESRD on HD via Right Chest Permacath with maturation of Left Arm AVF pending starting 03/26/19: Assessment/Plan * Nephrology (Dr. Smith) help appreciated * Vascular surgery (Dr. Alvarez) help appreciated * Operative Note * 03/25/19: Perm-A-Cath right jugular vein * 03/25/19: Brachial AV bovie graft, left upper arm * Renal Biopsy (04/02/19): diabetic nephropathy, Class II B with segmental glomerulosclerosis; 23% global glomerulosclerosis, modertae interstitial fibriosis and moderate arteriosclerosis * Dialysis per nephrology * Pending outpatient placement since patient required dialysis during this admission 2. Acute decompensated diastolic congestive heart failure (HFpEF) Stable Assessment/Plan * Cardiology (Dr. Reynolds) help appreciated * Chest xray (03/30/19): no active disease * Chest Xray (03/25/19): right central venous catheter tip extending into the cavoatrial junction. Moderate venous congestion. Linerar atelectatic changes in the left mid lung zone. Additional linear consolidative changes in the right midlung zone. Patchy consolidative changes in the right lung base. * Aspirin 81mg PO daily * Coreg 12.5mg PO BID * Cozaar 50mg PO daily * Metolazone 5mg POqAM * Echo (03/17/19): moderate to severe concentric LVH, left ventricular function is normal, EF normal, normal LV segmental wall motion, severe pulm HTN, 3.Hypertension Assessment/Plan * [facility] renal dialysis fluid restriction diet * Norvasc 10mg PO daily * Coreg 12.5 mg PO 2x/day * Lasix 40 mg PO 1x/day at 8 AM * Hydralazine 50mg PO TID-->on hold since 03/31/19 * Cozaar 50 mg PO at 10 AM * Patient is new on dialysis; underwent 4th session 04/01/19 4. Atrial Flutter Assessment/Plan * Coreg 12.5mg PO BID * Eliquis 5mg PO BID * Patient will require assistance for payment for the Eliquis and she can go to [email or web address] (click on nonvalvular Afib, then click on Cost/Savings/Support for instructions OR may call [phone] for assistance). * If for some reason the patient does NOT qualify for Eliquis assistance, olga ent understands that she would then placed on Coumadin and all that that entails (continued monitoring, diet). * Eliquis acquisition assistance form sent to [facility] promotions representative by SANDIE Salas * I have filled out the form for the patient to receive Eliquis for discharge planning 5. Hx of Polysubstance Abuse Assessment/Plan * Upon Discharge will need to be provided with the following: * [place] QuitLine [phone] for help quitting smoking * AA [phone] for help discontinuing her daily beer drinking since the age of 12 * For help with Cocaine and Heroin abuse, she will need to go to [email or web address] to help finding meetings near her residence * Extensive conversation with patient on 03/28/19 about the dangers of Tobacco, Heroine, Cocaine, and Alcohol and the importance of following up with support groups to increase her chances of abstinence * Folic acid 1mg PO daily * MVI 1 tab PO daily * Thiamine 100mg PO daily 6. Constipation, resolved 7. Hx IDDM2 with neuropathy Assessment/Plan * Regular insulin sliding scale subqACHS * Hypoglycemic protocol * Aspirin 81mg PO daily * Cozaar 50mg PO daily * Gabapentin 100mg PO TID * hgba1c: 6.0 (controlled) 8. Hepatic steatosis, chronic Assessment/Plan * HIV and hepatitis negative * Abd US: mild hepatomegaly. Diffuse increased echogenicity in the liver may reflect hepatic steatosis. Nodular contour of the liver could represent cirrhosis. Medical renal disease. Gallbladder is contracted but no cholelithiasis. Mild diffuse dilation of the common bile duct without evidence for choledocholithiasis. * CT A/P: Hepatomegaly noted without focal mass or gross intrahepatic biliary duct dilatation. Mild anasarca. * Hepatobiliary surgeon consulted (Wilson) evaluated during hospital 9. Hx Adrenal Adenoma/Mass Assessment/Plan * Outpatient follow up 10. Vitamin D deficiency- suspect 2/2 kidney disease Assessment/Plan * 25-OH vit D <12.5 * Vitamin D 50,000 IU Q1WK on 03/20 (Friday) x 8 doses 11. PPX: * Pt on Eliquis 5 mg PO BID * Pepcid 20 mg PO daily Disposition: pending outpatient dialysis. monitor patient closely for withdrawal of drugs.
[2019-04-04] MEDS: Multiple Vitamins Tab PO SCH (09:25)
[2019-04-04] MEDS: metOLazone 5 MG TAB PO SCH ×2 (09:29→09:36)
--- NOTE | 2019-04-04 11:36 | PCM.PYCHPN ---
Psychiatric Progress Note - Psychiatric Progress Note Patient seen today, length of contact: 16 min Patient Chief Complaint: "I'm withdrawing" Problems Identified/Issues Discussed: The pt is seen again, chart reviewed, and case is discussed with the team. The pt denies any side-effects from meds. [employer] Cleaner was told that (and she later admitted) she had used heroin on the unit for 3 days, her BF supplied it. Last time was 2 days ago [employer]er could not elicit any wdw sxs except for anxiety/irritability Atarax and prn ativan low dose ordered Medication Change: Yes (prn meds) Medical Record Reviewed: Yes Mental Status Examination - Cognitive Function Orientation: Person, Place, Situation, Time Memory: Intact Attention: Poor Concentration: Poor Association: WNL Fund of Knowledge: Poor - Mood Mood: Anxious - Affect Affect: Constricted - Speech Speech: Appropriate - Formal Thought Process Formal Thought Process: No Impairment - Suicidal Ideation Suicidal Ideation: No - Homicidal Ideation Homicidal Ideation: No Goal/Treatment Plan - Goal/Treatment Plan Need for Continued Stay: Discharge may exacerbated symptoms, Other (medical) Progress Toward Problem(s) and Goals/Treatment Plan: No methadone necessary Atarax and ativan prn anxiety Support and psychoed provided
[2019-04-04] MEDS ORDERED: Sodium Chloride 0.9% 500 ML IV SCH (15:30)
[2019-04-05] MEDS: (Novolin R) Insulin Human Regular 100 units/ml vial SC SCH ×2 (08:22→12:22)
--- NOTE | 2019-04-05 10:55 | CP.PCM.PN ---
Subjective - Date & Time of Evaluation Date of Evaluation: 04/05/19 Time of Evaluation: 09:50 - Subjective Subjective: PGY1 Medicine progress note for Dr. Bob Tirado Pt seen and examined at bedside. Pt is resting comfortably. No acute events overnight. No acute complaints. Denies fever, chills, chest pain, sob, abdominal pain, n/v, headache, dizziness, hematochezia, melena, visual changes, dizziness, lightheadedness. Again, we discussed the care home consequences of illicit drug use and their effects on the body. I continued to stress the importance of adhering to medication regimen and dialysis as noncompliance can lead to worsening of her health and potentially . Pt admits to having a problem with heroin, but states that she "feels better now." Objective - Vital Signs/Intake and Output Vital Signs (last 24 hours): Temp Pulse Resp BP Pulse Ox 98.5 F 72 20 148/76 98 04/05/19 07:30 04/05/19 09:03 04/05/19 07:30 04/05/19 07:30 04/05/19 07:30 Intake and Output: 04/05/19 04/05/19 06:59 18:59 Intake Total 820 Balance 820 - Medications Medications: Current Medications Acetaminophen (Tylenol 325mg Tab) 650 mg PO Q6 PRN PRN Reason: Pain, moderate (4-7) Last Admin: 04/03/19 15:22 Dose: 650 mg Albuterol/Ipratropium (Duoneb 3 Mg/0.5 Mg (3 Ml) Ud) 3 ml INH RQ6 PRN PRN Reason: Shortness of Breath Amlodipine Besylate (Norvasc) 10 mg PO Q24H [facility] Last Admin: 04/05/19 08:21 Dose: Not Given Apixaban (Eliquis) 5 mg PO BID [facility] Last Admin: 04/04/19 17:46 Dose: 5 mg Ascorbic Acid (Vitamin C 500 Mg Tab) 500 mg PO DAILY [facility] Last Admin: 04/04/19 09:27 Dose: 500 mg Aspirin (Ecotrin) 81 mg PO DAILY [facility] Last Admin: 04/04/19 09:26 Dose: 81 mg Carvedilol (Coreg) 12.5 mg PO BID [facility] Last Admin: 04/04/19 17:45 Dose: 12.5 mg Dextrose (Dextrose 50% Inj) 0 ml IV STAT PRN; Protocol PRN Reason: Hypoglycemia Protocol Dextrose (Glutose 15) 0 gm PO ONCE PRN; Protocol PRN Reason: Hypoglycemia Protocol Docusate Sodium (Colace) 100 mg PO BID PRN PRN Reason: Constipation Ergocalciferol (Drisdol 50,000 Intl Units Cap) 1 cap PO Q7D [facility] Stop: 05/05/19 12:01 Last Admin: 03/31/19 11:15 Dose: 1 cap Folic Acid (Folic Acid) 1 mg PO DAILY [facility] Last Admin: 04/04/19 09:26 Dose: 1 mg Gabapentin (Neurontin) 100 mg PO Q8H [facility] Last Admin: 04/05/19 05:38 Dose: 100 mg Glucagon (Glucagen Diagnostic Kit) 0 mg IM STAT PRN; Protocol PRN Reason: Hypoglycemia Protocol Hydralazine HCl (Apresoline) 50 mg PO Q8H [facility] Last Admin: 03/31/19 08:25 Dose: 50 mg Hydroxyzine HCl (Atarax) 25 mg PO Q6H PRN PRN Reason: Anxiety Last Admin: 04/05/19 08:20 Dose: 25 mg Insulin Human Regular (Novolin R) 0 unit SC [facility]; Protocol Last Admin: 04/05/19 08:22 Dose: Not Given Lorazepam (Ativan) 0.5 mg PO Q12H PRN PRN Reason: severe anxiety Last Admin: 04/04/19 22:58 Dose: 0.5 mg Losartan Potassium (Cozaar) 50 mg PO DAILY [facility] Last Admin: 04/04/19 09:33 Dose: Not Given Metolazone (Zaroxolyn) 5 mg PO QAM [facility] Last Admin: 04/04/19 09:36 Dose: Not Given Multivitamins (Hexavitamin) 1 tab PO DAILY [facility] Last Admin: 04/04/19 09:25 Dose: 1 tab Nicotine (Nicoderm Cq) 1 patch TD DAILY [facility] Stop: 04/28/19 23:59 Last Admin: 04/04/19 16:43 Dose: 1 patch Thiamine HCl (Vitamin B1 Tab) 100 mg PO DAILY [facility] Last Admin: 04/04/19 09:25 Dose: 100 mg Torsemide (Demadex) 20 mg PO DAILY [facility] Trazodone HCl (Desyrel) 100 mg PO HS PRN PRN Reason: Insomnia Last Admin: 04/03/19 21:16 Dose: 100 mg - Labs Labs: 04/03/19 12:43 04/03/19 12:43 PT 12.3 SECONDS (9.7-12.2) H 03/25/19 07:55 INR 1.1 03/25/19 07:55 APTT 38.0 SECONDS (21-34) H 03/25/19 07:55 - Additional Findings Additional findings: - Constitutional Appears: Non-toxic, No Acute Distress - Head Exam Head Exam: ATRAUMATIC, NORMAL INSPECTION - Eye Exam Additional comments: Right eye exotropia - ENT Exam ENT Exam: Mucous Membranes Dry - Respiratory Exam Respiratory Exam: Clear to Auscultation Bilateral, NORMAL BREATHING PATTERN. absent: Respiratory Distress - Cardiovascular Exam Cardiovascular Exam: Irregularly irregular, +S1, +S2. - GI/Abdominal Exam GI & Abdominal Exam: Soft. absent: Distended, Tenderness - Extremities Exam Extremities Exam: (+) hypertonicity and tenderness bilateral achilles. absent: Pedal Edema Additional comments: Left Arm AVF with (+) Thrill; no signs of infection Right Chest Permacath insertion site nontender; no signs of infections - Neurological Exam Neurological Exam: Alert, Awake, Normal Gait. - Psychiatric Exam Psychiatric exam: Normal Affect, Normal Mood - Skin Skin Exam: Dry, Normal Color, Warm Assessment and Plan - Assessment and Plan (Free Text) Assessment: Patient is a 58 yo female with CKD, HTN, T2DM, and polysubstance use (heroin and cocaine) who presented with leg swelling and abdominal pain. Patient found to h ave worsening kidney disease and severe constipation. Echo notable for severe pulm HTN. Patient also Patient had L renal biopsy on 03/22- diabetic nephropathy. Patient had AV graft and permacath placed 03/25. Started on HD on 03/26. Plan: ESRD on HD via Right Chest Permacath with maturation of Left Arm AVF pending starting 03/26/19: - Nephrology (Dr. Smith) help appreciated - Vascular surgery (Dr. Alvarez) help appreciated - Kidney biopsy pathology shows diabetic nephropathy, class IIb with segmental glomerulosclerosis. - S/p Perm-A-Cath right jugular vein (03/25/19) and Brachial AV bovie graft, left upper arm (03/25/19) - S/p 5th round of HD 04/03/19, well tolerated - Reiterated that she will need to enlist the help of her family and friends because if she misses her HD she will not only lose her spot for HD, but that her health would decline. - Case management working on outpatient HD placement and transportation to and from. Acute decompensated diastolic congestive heart failure (HFpEF), improving - Cardiology (Dr. Reynolds) help appreciated - CXR: cardiomegaly, L pleural effusion - EKG: NSR, PVCs - LE Dopplers: no DVT - Echo: EF 62%, mod-severe LVH, severe pulm HTN, mod TR - CT A/P: Mild CHF suspected. [id number] left and mild right pleural effusions identified. - BNP 31,300--> 12,300 - Trop negative - Monitor on telemetry - Fluid restriction 1500 mL - Strict Is & Os, Daily weights - Medications: * Duoneb Q6H PRN * Coreg to 12.5 mg PO BID (10am, 6pm) * Metolazone 5 mg PO daily (10am) * Torsemide 20mg PO daily- HELD Uncontrolled HTN, chronic, improving - Norvasc 10 mg PO daily at 8 AM - Coreg 12.5 mg PO BID at 10 AM and 6 PM - Torsemide 20mg PO daily- HELD - Hydralazine 25 mg PO TID at 10 AM, 2 PM, and 6 PM - Cozaar 25 mg PO at 10 AM Atrial Flutter, acute - Continue Coreg 12.5 mg PO BID * Top Lift Nailer, Dr. Mckenzie, is ok with Coreg and does recommend Eliquis which was started 03/27/19 - Eliquis 5 mg PO BID - Patient will require assistance for payment for the Eliquis and she can go to [email or web address] (click on nonvalvular Afib, then click on - Cost/Savings/Support for instructions OR may call [phone] for assistance). - If for some reason the patient does NOT qualify for Eliquis assistance, patient understands that she would then placed on Coumadin and all that that entails -(continued monitoring, diet). - Eliquis acquisition assistance form sent to [facility] uniforms sales representative by SANDIE Khan of Polysubstance Abuse, chronic - Upon Discharge will need to be provided with the following: * [place] [employer] [phone] for help quitting smoking * AA [phone] for help discontinuing her daily beer drinking since the age of 12 * For help with Cocaine and Heroin abuse, she will need to go to www.nanj.org to help finding meetings near her residence - Extensive conversation with patient on 03/28/19 about the dangers of Tobacco, Heroine, Cocaine, and Alcohol and the importance of following up with support groups to increase her chances of abstinence - Continue Thiamine, MV, Folic acid - Continue Nicotine patch - Recent intranasal heroin usage whil einpatient as per pt and EMR. Avysys placed in her room- patient refused, ordered telemetry-patient refused, and requested security to perform search. Per psychiatrist, patient does not need methadone. Atarax and Ativan PRN anxiety. - Pt agrees to search. Pt's room will be evaluated searched by security. Intermittent chest pain, 03/30/19; resolved - CXR shows no active disease - Troponin was negative - EKG shows NSR at 60, nonspecific STTW changes - Continue to monitor Nonproductive Cough, resolved - Afebrile, no leukocytosis - CXR shows no acute changes - Vitamin C 500 mg PO once daily Constipation, acute on chronic - Continue Colace 100mg PO BID prn Hx IDDM2 with neuropathy, chronic - Continue to hold home Jardiance due to ESRD - Continue to monitor blood glucose; well controlled at this time - Consult placed for [employer] Person Nurse Hilton at [facility] 03/27/19 to come see patient this coming week to teach patient how to administer insulin and to measure insulin: Zanjero Cathy placed call on 03/27/19 - Continue ASA, Cozaar 25 mg PO at 10 AM, Gabapentin 100 mg PO Q8h for neurop athy Hepatic steatosis, chronic - HIV and hepatitis negative - Abd US: mild hepatomegaly. Diffuse increased echogenicity in the liver may reflect hepatic steatosis. Nodular contour of the liver could represent cirrhosis. Medical renal disease. Gallbladder is contracted but no cholelithiasis. Mild diffuse dilation of the common bile duct without evidence for choledocholithiasis. - CT Abd/Pel: Hepatomegaly noted without focal mass or gross intrahepatic biliary duct dilatation. Mild anasarca. - Hepatobiliary surgeon consulted (Wilson) Hx Adrenal Adenoma/Mass, chronic - Outpatient follow up Vitamin D deficiency- suspect 2/2 kidney disease - 25-OH vit D <12.5 - Vitamin D 50,000 IU Q1WK on 03/20 (Friday) x 8 doses PPX - Pt on Eliquis 5 mg PO BID - Pepcid 20 mg PO daily - PT will eval and treat pt for foot pain Plan: Pending outpatient HD placement, tolerating HD well.
--- NOTE | 2019-04-05 12:11 | CP.PCM.PN ---
Subjective - Date & Time of Evaluation Date of Evaluation: 04/05/19 Time of Evaluation: 12:08 - Subjective Subjective: PGY-[address] Smith Nephro Pt sitting comfortably on chair. She endorsed that she understood the importance of not using illicit drugs. No acute complaints Objective - Vital Signs/Intake and Output Vital Signs (last 24 hours): Temp Pulse Resp BP Pulse Ox 98.5 F 72 20 148/76 98 04/05/19 07:30 04/05/19 09:03 04/05/19 07:30 04/05/19 07:30 04/05/19 07:30 Intake and Output: 04/05/19 04/05/19 06:59 18:59 Intake Total 820 Balance 820 - Medications Medications: Current Medications Acetaminophen (Tylenol 325mg Tab) 650 mg PO Q6 PRN PRN Reason: Pain, moderate (4-7) Last Admin: 04/03/19 15:22 Dose: 650 mg Albuterol/Ipratropium (Duoneb 3 Mg/0.5 Mg (3 Ml) Ud) 3 ml INH RQ6 PRN PRN Reason: Shortness of Breath Amlodipine Besylate (Norvasc) 10 mg PO Q24H [facility] Last Admin: 04/05/19 08:21 Dose: Not Given Apixaban (Eliquis) 5 mg PO BID [facility] Last Admin: 04/04/19 17:46 Dose: 5 mg Ascorbic Acid (Vitamin C 500 Mg Tab) 500 mg PO DAILY [facility] Last Admin: 04/04/19 09:27 Dose: 500 mg Aspirin (Ecotrin) 81 mg PO DAILY [facility] Last Admin: 04/04/19 09:26 Dose: 81 mg Carvedilol (Coreg) 12.5 mg PO BID [facility] Last Admin: 04/04/19 17:45 Dose: 12.5 mg Dextrose (Dextrose 50% Inj) 0 ml IV STAT PRN; Protocol PRN Reason: Hypoglycemia Protocol Dextrose (Glutose 15) 0 gm PO ONCE PRN; Protocol PRN Reason: Hypoglycemia Protocol Docusate Sodium (Colace) 100 mg PO BID PRN PRN Reason: Constipation Ergocalciferol (Drisdol 50,000 Intl Units Cap) 1 cap PO Q7D [facility] Stop: 05/05/19 12:01 Last Admin: 03/31/19 11:15 Dose: 1 cap Folic Acid (Folic Acid) 1 mg PO DAILY [facility] Last Admin: 04/04/19 09:26 Dose: 1 mg Gabapentin (Neurontin) 100 mg PO Q8H [facility] Last Admin: 04/05/19 05:38 Dose: 100 mg Glucagon (Glucagen Diagnostic Kit) 0 mg IM STAT PRN; Protocol PRN Reason: Hypoglycemia Protocol Hydralazine HCl (Apresoline) 50 mg PO Q8H [facility] Last Admin: 03/31/19 08:25 Dose: 50 mg Hydroxyzine HCl (Atarax) 25 mg PO Q6H PRN PRN Reason: Anxiety Last Admin: 04/05/19 08:20 Dose: 25 mg Insulin Human Regular (Novolin R) 0 unit SC [facility]; Protocol Last Admin: 04/05/19 08:22 Dose: Not Given Lorazepam (Ativan) 0.5 mg PO Q12H PRN PRN Reason: severe anxiety Last Admin: 04/04/19 22:58 Dose: 0.5 mg Losartan Potassium (Cozaar) 50 mg PO DAILY [facility] Last Admin: 04/04/19 09:33 Dose: Not Given Metolazone (Zaroxolyn) 5 mg PO QAM [facility] Last Admin: 04/04/19 09:36 Dose: Not Given Multivitamins (Hexavitamin) 1 tab PO DAILY [facility] Last Admin: 04/04/19 09:25 Dose: 1 tab Nicotine (Nicoderm Cq) 1 patch TD DAILY [facility] Stop: 04/28/19 23:59 Last Admin: 04/04/19 16:43 Dose: 1 patch Thiamine HCl (Vitamin B1 Tab) 100 mg PO DAILY [facility] Last Admin: 04/04/19 09:25 Dose: 100 mg Torsemide (Demadex) 20 mg PO DAILY [facility] Trazodone HCl (Desyrel) 100 mg PO HS PRN PRN Reason: Insomnia Last Admin: 04/03/19 21:16 Dose: 100 mg - Labs Labs: 04/03/19 12:43 04/03/19 12:43 PT 12.3 SECONDS (9.7-12.2) H 03/25/19 07:55 INR 1.1 03/25/19 07:55 APTT 38.0 SECONDS (21-34) H 03/25/19 07:55 - Constitutional Appears: No Acute Distress - Head Exam Head Exam: ATRAUMATIC, NORMAL INSPECTION, NORMOCEPHALIC - Eye Exam Eye Exam: EOMI, Normal appearance, PERRL. absent: Scleral icterus - Neck Exam Additional comments: supple. permacath intact, no erythema - Respiratory Exam Respiratory Exam: Clear to Ausculation Bilateral. absent: Rales, Rhonchi, Wheezes - Cardiovascular Exam Cardiovascular Exam: REGULAR RHYTHM, +S1, +S2 - GI/Abdominal Exam GI & Abdominal Exam: Soft, Normal Bowel Sounds. absent: Guarding, Rigid, Tenderness Additional comments: no suprapubic tenderness - Extremities Exam Extremities Exam: absent: Calf Tenderness, Pedal Edema - Back Exam Back Exam: absent: CVA tenderness (L), CVA tenderness (R) - Neurological Exam Neurological Exam: Alert, Awake, Oriented x3 - Psychiatric Exam Psychiatric exam: Normal Affect, Normal Mood - Skin Skin Exam: Dry, Warm Assessment and Plan - Assessment and Plan (Free Text) Plan: Ms Siddiqi, 58 AAF w/ PMHx htn, dm (A1C 6), CKD G4 with 3g proteinuia, c/o dyspnea and abdominal distention admitted with acute decompensated diastolic CHF/pulm htn, and progressive renal failure. She is deemed ESRD started HD during this hospital stay, had Perm-a-cath, pending outpatient dialysis arrangement ESRD - stable volume and electrolyte status - On weekly drisdol. 25-OH vit D < 12.5 - Kidney biopsy pathology suggestive of diabetic nephropathy - S/p Perm-A-Cath right jugular vein (03/25/19) and Brachial AV bovie graft, left upper arm (03/25/19) - Eliquis dosing per cardio pending VTE/stroke risk Hypertensive ESRD - BP 140s - hydralazine put on hold as patient was just recently volume depleted, loop diuretic also on hold; (no more diarrhea) - will continue rest of current meds: Losartan 50, Metolazone 5, [Torsemid 20 ON HOLD], Coreg 12.5 bid, Amlodipine 10, [Hydralazine 50 q8 ON HOLD] - Continue with losartan for anti-proteinuric control to preserve residual renal function. CHF status stable - euvolemic on exam - 1L UF on next HD heroin use x 3 days while at hospital Episodic Anxiety and agitation Substance abuse - psych consult - grief counsellor cessation and abstinence Hx Adrenal Adenoma/Mass, chronic - Outpatient follow up s/r/d/w Dr Smith
[2019-04-05] MEDS: Multiple Vitamins Tab PO SCH (12:22)
[2019-04-05] MEDS: metOLazone 5 MG TAB PO SCH (12:24)
--- NOTE | 2019-04-05 15:42 | CP.PCM.DIS ---
<Jamey Dhaliwal - Last Filed: 04/06/19 10:18> Provider - Provider Date of Admission: 03/18/19 16:26 Attending physician: Dai Helton DO Consults: 03/17/19 01:41 Physician Consult Routine Comment: Consulting Provider: Sudhir Tolentino Consulting Physician: Sudhir Tolentino Reason for Consult: dyspnea, lower extremity edema, possible new onset heart failure 03/17/19 01:57 Case Management Referral Routine Comment: Physician Instructions: Reason For Exam: Reason for Referral: Discharge Planning 03/17/19 08:59 Nephrology Consult Routine Comment: Consulting Provider: Arvin Smith Consulting Physician: Arvin Smith Reason for Consult: uncontrolled hypertension, proteinuria 03/17/19 09:00 Psychiatry Consult Routine Comment: known to detox unit Consulting Provider: Micky Garrison Consulting Physician: Micky Garrison Reason for Consult: heroin withdrawal 03/17/19 15:51 Physician Consult Routine Comment: Consulting Provider: Nba Chavez Consulting Physician: Nba Chavez Reason for Consult: eval for cirrhosis Additional Comments: patient known heroin, cocaine, and alcohol use. unclear if liver cirrhosis or related to possible chf; patient undergoing workup at this time. 03/19/19 13:57 General Surgery Consult Routine Comment: Consulting Provider: Sincere Alvarez Jr. Consulting Physician: Sincere Alvarez Jr. Reason for Consult: poss AV fistula 03/22/19 15:29 Podiatry Consult Routine Comment: Consulting Provider: Aleksandra Alexandra Consulting Physician: Aleksandra Alexandra Reason for Consult: diabetic foot exam 03/27/19 10:15 Diabetic Education Referral Routine Comment: Was on Jardiance at home: contraindicated in ESRD Physician Instructions: Educate on Insulin administration & measurement Reason For Exam: Hx DM2 but now requires insulin due to ESRD 04/04/19 10:35 Pastoral Care Referral Routine Comment: Physician Instructions: Reason For Exam: support, addiction Time Spent in preparation of Discharge (in minutes): 35 Diagnosis - Discharge Diagnosis (1) ESRD (end stage renal disease) on dialysis Status: Acute (2) (HFpEF) heart failure with preserved ejection fraction Status: Acute (3) Hepatic steatosis Status: Chronic (4) Adrenal mass Status: Chronic (5) Vitamin D deficiency Status: Chronic (6) Alcohol abuse Status: Chronic (7) Diabetes mellitus with neuropathy Status: Chronic (8) Hypertension Status: Chronic (9) Polysubstance abuse Status: Chronic (10) Typical atrial flutter Status: Acute Hospital Course - Lab Results Lab Results: Most Recent Lab Values WBC 7.1 K/uL (4.8-10.8) 04/03/19 12:43 RBC 4.01 Mil/uL (3.80-5.20) 04/03/19 12:43 Hgb 12.4 g/dL (11.0-16.0) 04/03/19 12:43 Hct 37.3 % (34.0-47.0) 04/03/19 12:43 MCV 93.2 fL (81.0-99.0) 04/03/19 12:43 MCH 30.8 pg (27.0-31.0) 04/03/19 12:43 MCHC 33.1 g/dL (33.0-37.0) 04/03/19 12:43 RDW 14.5 % (11.5-14.5) 04/03/19 12:43 Plt Count 212 K/uL (130-400) 04/03/19 12:43 MPV 9.9 fL (7.2-11.7) 04/03/19 12:43 Neut % (Auto) 71.0 % (50.0-75.0) 04/01/19 14:10 Lymph % (Auto) 14.1 % (20.0-40.0) L 04/01/19 14:10 Dakota % (Auto) 7.5 % (0.0-10.0) 04/01/19 14:10 Eos % (Auto) 6.1 % (0.0-4.0) H 04/01/19 14:10 Baso % (Auto) 1.3 % (0.0-2.0) 04/01/19 14:10 Neut # (Auto) 4.7 K/uL (1.8-7.0) 04/01/19 14:10 Lymph # (Auto) 0.9 K/uL (1.0-4.3) L 04/01/19 14:10 [place] # (Auto) 0.5 K/uL (0.0-0.8) 04/01/19 14:10 Eos # (Auto) 0.4 K/uL (0.0-0.7) 04/01/19 14:10 Baso # (Auto) 0.1 K/uL (0.0-0.2) 04/01/19 14:10 PT 12.3 SECONDS (9.7-12.2) H 03/25/19 07:55 INR 1.1 03/25/19 07:55 APTT 38.0 SECONDS (21-34) H 03/25/19 07:55 D-Dimer, Quantitative 634 ng/mlDDU (0-243) H 03/16/19 21:09 Sodium 141 mmol/L (132-148) 04/03/19 12:43 Potassium 3.5 mmol/L (3.6-5.2) L 04/03/19 12:43 Chloride 102 mmol/L (98-107) 04/03/19 12:43 Carbon Dioxide 25 mmol/L (22-30) 04/03/19 12:43 Anion Gap 17 (10-20) 04/03/19 12:43 BUN 38 mg/dL (7-17) H 04/03/19 12:43 Creatinine 3.0 mg/dL (0.7-1.2) H 04/03/19 12:43 Est GFR ( Amer) 19 04/03/19 12:43 Est GFR (Non-Af Amer) 16 04/03/19 12:43 POC Glucose (mg/dL) 173 mg/dL (65-110) H 04/05/19 11:45 Random Glucose 117 mg/dL (65-105) H 04/03/19 12:43 Hemoglobin A1c 6.0 % (4.2-6.5) 03/17/19 06:36 Serum Osmolality 311 mosm/kg (272-300) H 03/18/19 11:07 Uric Acid 10.1 mg/dL (2.2-7.5) H 03/24/19 20:12 Calcium 9.3 mg/dl (8.6-10.4) 04/03/19 12:43 Phosphorus 3.2 mg/dL (2.5-4.5) 04/03/19 12:43 Magnesium 1.8 mg/dL (1.6-2.3) 04/03/19 12:43 Total Bilirubin 0.3 mg/dL (0.2-1.3) 04/03/19 12:43 AST 42 U/L (14-36) H 04/03/19 12:43 ALT 41 U/L (9-52) 04/03/19 12:43 Alkaline Phosphatase 109 U/L (38-126) 04/03/19 12:43 Total Creatine Kinase 41 U/L (30-135) 03/30/19 14:09 CK-MB (Mass) 0.74 ng/mL (0.0-3.38) 03/30/19 14:09 Troponin I 0.0930 ng/mL (0.00-0.120) 03/30/19 14:09 NT-Pro-B Natriuret Pep 20238 pg/mL (0-900) H 03/20/19 07:16 Total Protein 6.4 g/dL (6.3-8.3) 04/03/19 12:43 Albumin 3.5 g/dL (3.5-5.0) 04/03/19 12:43 Globulin 2.9 gm/dL (2.2-3.9) 04/03/19 12:43 Albumin/Globulin Ratio 1.2 (1.0-2.1) 04/03/19 12:43 Triglycerides 92 mg/dL (0-149) D 03/17/19 06:36 Cholesterol 148 mg/dL (0-199) 03/17/19 06:36 LDL Cholesterol Direct 86 mg/dL (0-129) 03/17/19 06:36 HDL Cholesterol 68 mg/dL (30-70) 03/17/19 06:36 Renin 0.39 ng/mL/h (0.25-5.82) 03/19/19 11:55 Aldosterone 12 ng/dL (see note) 03/19/19 11:55 Aldosterone/Renin Ratio 25.6 Ratio (0.9-28.9) 03/19/19 11:55 25-OH Vitamin D Total < 12.8 NG/ML (30.0-100.0) L 03/19/19 11:55 PTH Intact Whole Molec 335 pg/mL (14-64) H 03/19/19 11:55 Cortisol AM Sample 4.3 ug/dL (4.46-22.7) L 03/20/19 07:16 Plasma Metanephrine 30 pg/mL (<=57) 03/19/19 11:55 Plasma Normetanephrine 377 pg/mL (<=148) H 03/19/19 11:55 Plas Total Metaneph 407 pg/mL (<=205) H 03/19/19 11:55 Urine Color Straw (YELLOW) 03/16/19 22:40 Urine Clarity Clear (Clear) 03/16/19 22:40 Urine pH 6.0 (5.0-8.0) 03/16/19 22:40 Ur Specific Ralls 1.005 (1.003-1.030) 03/16/19 22:40 Urine Protein 2+ mg/dL (NEGATIVE) H 03/16/19 22:40 Urine Glucose (UA) 1+ mg/dL (Normal) 03/16/19 22:40 Urine Ketones Negative mg/dL (NEGATIVE) 03/16/19 22:40 Urine Blood 1+ (NEGATIVE) H 03/16/19 22:40 Urine Nitrate Negative (NEGATIVE) 03/16/19 22:40 Urine Bilirubin Negative (NEGATIVE) 03/16/19 22:40 Urine Urobilinogen Normal mg/dL (0.2-1.0) 03/16/19 22:40 Ur Leukocyte Esterase Trace Felix/uL (Negative) 03/16/19 22:40 Urine WBC (Auto) 17 /hpf (0-5) H 03/16/19 22:40 Urine RBC (Auto) 7 /hpf (0-3) H 03/16/19 22:40 Ur Squamous Epith Cells 1 /hpf (0-5) 03/16/19 22:40 Hyaline Casts 0-2 /lpf (0-2) 03/16/19 22:40 Urine Osmolality 320 mosm/kg (300-1000) 03/18/19 22:15 Ur Random Creatinine 19.7 mg/dL 03/18/19 22:15 Ur Random Sodium 112 mmol/L 03/18/19 22:15 Ur Random Potassium 22.2 mmol/L 03/18/19 22:15 Ur Random Urea Nitrogn 150 mg/dL 03/18/19 22:15 Urine Collection Time 24 HRS 03/25/19 11:36 Urine Total Volume 1400 mL 03/25/19 11:36 Creatinine Clearance 14.0 mL/min (87-107) L 03/25/19 11:36 Ur Protein 24 Hr Calc 1834.0 mg/24hr (42-225) H 03/25/19 11:36 Urine HCG, Qual Negative (NEGATIVE) 03/16/19 22:40 Urine Opiates Screen Positive (NEGATIVE) H 04/03/19 21:30 Urine Methadone Screen Negative (NEGATIVE) 04/03/19 21:30 Ur Barbiturates Screen Negative (NEGATIVE) 04/03/19 21:30 Ur Phencyclidine Scrn Negative (NEGATIVE) 04/03/19 21:30 Ur Amphetamines Screen Negative (NEGATIVE) 04/03/19 21:30 U Benzodiazepines Scrn Negative (NEGATIVE) 04/03/19 21:30 U Oth Cocaine Metabols Negative (NEGATIVE) 04/03/19 21:30 U Cannabinoids Screen Positive (NEGATIVE) H 04/03/19 21:30 Alcohol, Quantitative < 10 mg/dl (0-10) 03/16/19 21:09 JEAN-PAUL Screen Negative (Negative) 03/17/19 12:00 ANCA Screen Negative (NEGATIVE) 03/17/19 12:00 c-ANCA Titer TNP 03/17/19 12:00 Proteinase 3 (PR3) <1.0 AI (<1.0) 03/17/19 12:00 p-ANCA Titer TNP 03/17/19 12:00 Atypical p-ANCA Titer TNP 03/17/19 12:00 Myeloperoxidase Ab <1.0 AI (<1.0) 03/17/19 12:00 Complement C3 106.0 mg/dL (88.0-165.0) 03/18/19 11:07 Complement C4 24.1 mg/dL (14.0-44.0) 03/18/19 11:07 Hepatitis A IgM Ab Negative (NEGATIVE) 03/17/19 06:36 Hep Bs Antigen Negative (NEGATIVE) 03/17/19 06:36 Hep B Core IgM Ab Negative (NEGATIVE) 03/17/19 06:36 Hepatitis C Antibody Negative (NEGATIVE) 03/17/19 06:36 HIV 1&2 Antibody Screen Negative (NEGATIVE) 03/17/19 11:09 - Hospital Course Hospital Course: On admission: Patient is a 58 year old female with a history of diabetes, hypertension, chronic kidney disease, heroin and cocaine abuse who presents for a few month history of lower extremity swelling and pain. She states she has had swelling of her feet, going up to her thigh for the past few months, associated with pain and tightness in her legs from the swelling. She states her pain in her legs is a 9/10 constant discomfort from the swelling, which is better when she is not on her feet and worse when she is walking. She states she also feels short of breath, sometimes at rest and when she walks. She states she has to stop when she walks about 2 blocks, sometimes because of the pain in her legs and sometimes because she feels short of breath. She states she does not have to prop herself up at night, states she uses 1 pillow at night, but also admits to waking up feeling short of breath sometimes. She also complains of 3 month history of abdominal distention rated 7/10, constant in nature, with radiation to her sides. She states she has tried ignacio ing her diet, without any relief of her distention. She denies nausea, vomiting, diarrhea, but admits to constipation with her last bowel movement 2 days ago. She denies bloody or dark stools. She denies recent travel, sick contacts, weight changes, rash, easy bruising, dysuria, hematuria. She denies fevers, chills, changes in weight, vision or hearing changes. She states she has intermittent headaches, no headache currently. Hospital course: Pt found to have ESRD. Nephrology Dr. Smith was consulted. Vascular surgery Dr. Alvarez consulted for placement of a right chest permacath, while left arm AV fistula is maturing (Also done by Dr. Alvarez this admission). Pt underwent kidney biopsy by DANELLE Dewey. It showed diabetic nephropathy, class IIb with segmental glomerulosclerosis. Patient has had 5 rounds of dialysis and is tolerating well. Patient found to have acute decompensated diastolic congestive heart failure. Cardiology Dr. Reynolds consulted. Chest xray showed cardiomegaly and left pleural effusion and electrocardiogram significant for PVCs. Echocardiogram showed EF 62%, moderate-severe LVH, severe pulm HTN and moderate tricuspid regurgitation. BNP levels were elevated on admission, but pt responded well to diuresis and HD. Patient has history of uncontrolled hypertension that is under control with Norvasc, Coreg, Zaraxolyn and Cozaar. Patient has atrial flutter and Manager Of Housekeeping Dr. Mckenzie recommended Eliquis which started on 03/27. Patient requires assistance for payment for Eliquis, [id number] asssitance forms filled out and pt provided with one month supply of Eliquis. Patient has history of polysubstance abuse. Psychiatry Dr. Garrison consulted. Patient will be given resources to help with her cocaine, heroin and alcohol use. Patient did admit to snorting heroin 3 days prior to discharge while in the hospital. Patient had intermittent episodes of chest pain which resolved. Chest xray showed no active disease, troponins were negative and EKG showed nonspecific changes. Cardiology cleared pt for discharge from cardiac standpoint. Patient has history of IDDM2 with neuropathy. Her sugars were rarely over 200, not over 300. Patient has history of chronic hepatic steatosis. Abdominal ultrasound performed showed mild hepatomegaly; Diffuse increased echogenicity in the liver may reflect hepatic steatosis. Nodular contour of the liver could represent cirrhosis. Medical renal disease. Gallbladder is contracted but no cholelithiasis. Mild diffuse dilation of the common bile duct without evidence for choledocholithiasis. CT of the abdomen and pelvis was significant for hepatomegaly. Hepatobiliary surgeon Dr. Wilson consulted. Patient found to have adrenal adenoma/mass that will be followed up outpatient. Pt seen and examined at bedside. Pt is resting comfortably. No acute events overnight. No acute complaints. Denies fever, chills, chest pain, sob, abdominal pain, n/v, headache, dizziness, hematochezia, melena, visual changes, dizziness, lightheadedness. Again, we discussed the senior living consequences of illicit drug use and their effects on the body. I continued to stress the importance of adhering to medication regimen and dialysis as noncompliance can lead to worsening of her health and potentially . Pt admits to having a problem with heroin, but states that she "feels better now." [place] [facility] [place] [facility] This is a summary of the hospital course. Please see EMR for full details. Discharge Exam - Additional Findings Additional findings: - Constitutional Appears: Non-toxic, No Acute Distress - Head Exam Head Exam: ATRAUMATIC, NORMAL INSPECTION - Eye Exam Additional comments: Right eye exotropia - ENT Exam ENT Exam: Mucous Membranes Dry - Respiratory Exam Respiratory Exam: Clear to Auscultation Bilateral, NORMAL BREATHING PATTERN. absent: Respiratory Distress - Cardiovascular Exam Cardiovascular Exam: Irregularly irregular, +S1, +S2. - GI/Abdominal Exam GI & Abdominal Exam: Soft. absent: Distended, Tenderness - Extremities Exam Extremities Exam: (+) hypertonicity and tenderness bilateral achilles (worse on right). absent: Pedal Edema Additional comments: Left Arm AVF with (+) Thrill; no signs of infection; minimal tenderness Right Chest Permacath insertion site nontender; no signs of infections; nontender - Neurological Exam Neurological Exam: Alert, Awake, Normal Gait, Oriented x3 - Psychiatric Exam Psychiatric exam: Normal Affect, Normal Mood - Skin Skin Exam: Dry, Normal Color, Warm Discharge Plan - Discharge Medications Prescriptions: amLODIPine [Norvasc] 10 mg PO DAILY #30 tab Apixaban [Eliquis] 5 mg PO BID #60 tab Aspirin [Ecotrin] 81 mg PO DAILY #30 tabec Aspirin [Ecotrin] 81 mg PO DAILY #30 tabec Carvedilol [Coreg] 12.5 mg PO BID #60 tab Docusate [Colace] 100 mg PO TID #90 cap Ergocalciferol [Drisdol 50,000 Intl Units Cap] 1 cap PO Q7D #5 cap Gabapentin [Neurontin] 100 mg PO Q8H #90 cap Losartan [Cozaar] 50 mg PO DAILY #30 tab metOLazone [Zaroxolyn] 5 mg PO QAM #30 tab traZODone [Desyrel] 100 mg PO HS PRN #30 tab PRN Reason: Insomnia Vitamin B Complex/Vit C/Folic [Nephro-Jeff] 1 tab PO DAILY #30 tab - Follow Up Plan Condition: FAIR Disposition: HOME/ ROUTINE Instructions: Heart Healthy Diet, Dialysis Diet , Heart Failure, Adult (DC), Apixaban, Alcohol Abuse and Alcoholism (DC), End Stage Kidney Disease (DC), Heart Failure (DC), Heart Failure (GEN), Pacemaker (DC), Pacemaker (GEN), Pulmonary Edema (DC), Pulmonary Edema (GEN), Renal Failure Diet (DC), Ascites (DC), Ascites (GEN) Additional Instructions: Pt is medically stable for discharge. Pt should only be taking, and was provided with prescriptions for, the following medications: Aspirin 81 mg PO once daily, 8 am. #30 Norvasc 10 mg PO once daily, 8 am. #30 Coreg 12.5 mg PO twice daily, 10 am and 6 pm. #60 Zaraxolyn 5 mg PO once daily, 10 am. #30 Cozaar 50 mg PO once daily, 10 am. #30 Colace 100 mg PO three times daily as needed for constipation. #90 Gabapentin 100 mg PO every 8 hours, 6 am 2 pm 10 pm. #90 Nephro-Jeff 1 tab PO once daily. #30 Vitamin D 50,000 units every Friday, until 05/05/19. #5 DO NOT take Jardiance or Metformin. Provided with prescription for test strips and lancets for glucometer. Pt provided with Eliquis 5 mg PO BID. #60. (One month's supply, from our outpatient pharmacy.) Pt should follow up with [facility] within 10 days of discharge, and referral for 6 month follow up of adrenal mass. Pt should continue dialysis as scheduled. Instructed to take her blood sugar before eating breakfast one day, before lunch the next day, and before dinner the next day. And instructed to repeat that. She is to bring in this diary with her at her clinic appointment. Call Narcotic Anonymous for assistance with quitting heroin and cocaine use. [phone] Call the [employer] Quit line for assistance with quitting smoking. [phone] for help discontinuing her daily beer drinking since the age of 12 For help with Cocaine and Heroin abuse, she will need to go to [email or web address] to help finding meetings near her residence Please call Dr. Alvarez's office to set up a follow up appointment in 1-2 weeks to evaluate the AV shunt Keep dressing on for 5 days Ok to shower, wrapping Left upper extremity and the Right chest wall with plastic to keep dressings dry Ok to resume a normal diet Should symptoms worsen, please head to the nearest Emergency Department for further evaluation. Instructions explained to the pt, who understands and agrees with discharge plan. Referrals: [facility] at [facility] [Outside] Sincere Alvarez Jr., MD [Staff Provider] - <Pardeep Tirado - Last Filed: 04/06/19 17:25> Provider - Provider Date of Admission: 03/18/19 16:26 Attending physician: Dai Helton DO Consults: 03/17/19 01:41 Physician Consult Routine Comment: Consulting Provider: Sudhir Tolentino Consulting Physician: Sudhir Tolentino Reason for Consult: dyspnea, lower extremity edema, possible new onset heart failure 03/17/19 01:57 Case Management Referral Routine Comment: Physician Instructions: Reason For Exam: Reason for Referral: Discharge Planning 03/17/19 08:59 Nephrology Consult Routine Comment: Consulting Provider: Arvin Smith Consulting Physician: Arvin Smith Reason for Consult: uncontrolled hypertension, proteinuria 03/17/19 09:00 Psychiatry Consult Routine Comment: known to detox unit Consulting Provider: Micky Garrison Consulting Physician: Micky Garrison Reason for Consult: heroin withdrawal 03/17/19 15:51 Physician Consult Routine Comment: Consulting Provider: Nba Chavez Consulting Physician: Nba Chavez Reason for Consult: eval for cirrhosis Additional Comments: patient known heroin, cocaine, and alcohol use. unclear if liver cirrhosis or related to possible chf; patient undergoing workup at this time. 03/19/19 13:57 General Surgery Consult Routine Comment: Consulting Provider: Sincere Alvarez Jr. Consulting Physician: Sincere Alvarez Jr. Reason for Consult: poss AV fistula 03/22/19 15:29 Podiatry Consult Routine Comment: Consulting Provider: Aleksandra Alexandra Consulting Physician: Aleksandra Alexandra Reason for Consult: diabetic foot exam 03/27/19 10:15 Diabetic Education Referral Routine Comment: Was on Jardiance at home: contraindicated in ESRD Physician Instructions: Educate on Insulin administration & measurement Reason For Exam: Hx DM2 but now requires insulin due to ESRD 04/04/19 10:35 Pastoral Care Referral Routine Comment: Physician Instructions: Reason For Exam: support, addiction Hospital Course - Lab Results Lab Results: Most Recent Lab Values WBC 7.1 K/uL (4.8-10.8) 04/03/19 12:43 RBC 4.01 Mil/uL (3.80-5.20) 04/03/19 12:43 Hgb 12.4 g/dL (11.0-16.0) 04/03/19 12:43 Hct 37.3 % (34.0-47.0) 04/03/19 12:43 MCV 93.2 fL (81.0-99.0) 04/03/19 12:43 MCH 30.8 pg (27.0-31.0) 04/03/19 12:43 MCHC 33.1 g/dL (33.0-37.0) 04/03/19 12:43 RDW 14.5 % (11.5-14.5) 04/03/19 12:43 Plt Count 212 K/uL (130-400) 04/03/19 12:43 MPV 9.9 fL (7.2-11.7) 04/03/19 12:43 Neut % (Auto) 71.0 % (50.0-75.0) 04/01/19 14:10 Lymph % (Auto) 14.1 % (20.0-40.0) L 04/01/19 14:10 [place] % (Auto) 7.5 % (0.0-10.0) 04/01/19 14:10 Eos % (Auto) 6.1 % (0.0-4.0) H 04/01/19 14:10 Baso % (Auto) 1.3 % (0.0-2.0) 04/01/19 14:10 Neut # (Auto) 4.7 K/uL (1.8-7.0) 04/01/19 14:10 Lymph # (Auto) 0.9 K/uL (1.0-4.3) L 04/01/19 14:10 [place] # (Auto) 0.5 K/uL (0.0-0.8) 04/01/19 14:10 Eos # (Auto) 0.4 K/uL (0.0-0.7) 04/01/19 14:10 Baso # (Auto) 0.1 K/uL (0.0-0.2) 04/01/19 14:10 PT 12.3 SECONDS (9.7-12.2) H 03/25/19 07:55 INR 1.1 03/25/19 07:55 APTT 38.0 SECONDS (21-34) H 03/25/19 07:55 D-Dimer, Quantitative 634 ng/mlDDU (0-243) H 03/16/19 21:09 Sodium 141 mmol/L (132-148) 04/03/19 12:43 Potassium 3.5 mmol/L (3.6-5.2) L 04/03/19 12:43 Chloride 102 mmol/L (98-107) 04/03/19 12:43 Carbon Dioxide 25 mmol/L (22-30) 04/03/19 12:43 Anion Gap 17 (10-20) 04/03/19 12:43 BUN 38 mg/dL (7-17) H 04/03/19 12:43 Creatinine 3.0 mg/dL (0.7-1.2) H 04/03/19 12:43 Est GFR ( Amer) 19 04/03/19 12:43 Est GFR (Non-Af Amer) 16 04/03/19 12:43 POC Glucose (mg/dL) 118 mg/dL (65-110) H 04/05/19 16:50 Random Glucose 117 mg/dL (65-105) H 04/03/19 12:43 Hemoglobin A1c 6.0 % (4.2-6.5) 03/17/19 06:36 Serum Osmolality 311 mosm/kg (272-300) H 03/18/19 11:07 Uric Acid 10.1 mg/dL (2.2-7.5) H 03/24/19 20:12 Calcium 9.3 mg/dl (8.6-10.4) 04/03/19 12:43 Phosphorus 3.2 mg/dL (2.5-4.5) 04/03/19 12:43 Magnesium 1.8 mg/dL (1.6-2.3) 04/03/19 12:43 Total Bilirubin 0.3 mg/dL (0.2-1.3) 04/03/19 12:43 AST 42 U/L (14-36) H 04/03/19 12:43 ALT 41 U/L (9-52) 04/03/19 12:43 Alkaline Phosphatase 109 U/L (38-126) 04/03/19 12:43 Total Creatine Kinase 41 U/L (30-135) 03/30/19 14:09 CK-MB (Mass) 0.74 ng/mL (0.0-3.38) 03/30/19 14:09 Troponin I 0.0930 ng/mL (0.00-0.120) 03/30/19 14:09 NT-Pro-B Natriuret Pep 68526 pg/mL (0-900) H 03/20/19 07:16 Total Protein 6.4 g/dL (6.3-8.3) 04/03/19 12:43 Albumin 3.5 g/dL (3.5-5.0) 04/03/19 12:43 Globulin 2.9 gm/dL (2.2-3.9) 04/03/19 12:43 Albumin/Globulin Ratio 1.2 (1.0-2.1) 04/03/19 12:43 Triglycerides 92 mg/dL (0-149) D 03/17/19 06:36 Cholesterol 148 mg/dL (0-199) 03/17/19 06:36 LDL Cholesterol Direct 86 mg/dL (0-129) 03/17/19 06:36 HDL Cholesterol 68 mg/dL (30-70) 03/17/19 06:36 Renin 0.39 ng/mL/h (0.25-5.82) 03/19/19 11:55 Aldosterone 12 ng/dL (see note) 03/19/19 11:55 Aldosterone/Renin Ratio 25.6 Ratio (0.9-28.9) 03/19/19 11:55 25-OH Vitamin D Total < 12.8 NG/ML (30.0-100.0) L 03/19/19 11:55 PTH Intact Whole Molec 335 pg/mL (14-64) H 03/19/19 11:55 Cortisol AM Sample 4.3 ug/dL (4.46-22.7) L 03/20/19 07:16 Plasma Metanephrine 30 pg/mL (<=57) 03/19/19 11:55 Plasma Normetanephrine 377 pg/mL (<=148) H 03/19/19 11:55 Plas Total Metaneph 407 pg/mL (<=205) H 03/19/19 11:55 Urine Color Straw (YELLOW) 03/16/19 22:40 Urine Clarity Clear (Clear) 03/16/19 22:40 Urine pH 6.0 (5.0-8.0) 03/16/19 22:40 Ur Specific Ralls 1.005 (1.003-1.030) 03/16/19 22:40 Urine Protein 2+ mg/dL (NEGATIVE) H 03/16/19 22:40 Urine Glucose (UA) 1+ mg/dL (Normal) 03/16/19 22:40 Urine Ketones Negative mg/dL (NEGATIVE) 03/16/19 22:40 Urine Blood 1+ (NEGATIVE) H 03/16/19 22:40 Urine Nitrate Negative (NEGATIVE) 03/16/19 22:40 Urine Bilirubin Negative (NEGATIVE) 03/16/19 22:40 Urine Urobilinogen Normal mg/dL (0.2-1.0) 03/16/19 22:40 Ur Leukocyte Esterase Trace Felix/uL (Negative) 03/16/19 22:40 Urine WBC (Auto) 17 /hpf (0-5) H 03/16/19 22:40 Urine RBC (Auto) 7 /hpf (0-3) H 03/16/19 22:40 Ur Squamous Epith Cells 1 /hpf (0-5) 03/16/19 22:40 Hyaline Casts 0-2 /lpf (0-2) 03/16/19 22:40 Urine Osmolality 320 mosm/kg (300-1000) 03/18/19 22:15 Ur Random Creatinine 19.7 mg/dL 03/18/19 22:15 Ur Random Sodium 112 mmol/L 03/18/19 22:15 Ur Random Potassium 22.2 mmol/L 03/18/19 22:15 Ur Random Urea Nitrogn 150 mg/dL 03/18/19 22:15 Urine Collection Time 24 HRS 03/25/19 11:36 Urine Total Volume 1400 mL 03/25/19 11:36 Creatinine Clearance 14.0 mL/min (87-107) L 03/25/19 11:36 Ur Protein 24 Hr Calc 1834.0 mg/24hr (42-225) H 03/25/19 11:36 Urine HCG, Qual Negative (NEGATIVE) 03/16/19 22:40 Urine Opiates Screen Positive (NEGATIVE) H 04/03/19 21:30 Urine Methadone Screen Negative (NEGATIVE) 04/03/19 21:30 Ur Barbiturates Screen Negative (NEGATIVE) 04/03/19 21:30 Ur Phencyclidine Scrn Negative (NEGATIVE) 04/03/19 21:30 Ur Amphetamines Screen Negative (NEGATIVE) 04/03/19 21:30 U Benzodiazepines Scrn Negative (NEGATIVE) 04/03/19 21:30 U Oth Cocaine Metabols Negative (NEGATIVE) 04/03/19 21:30 U Cannabinoids Screen Positive (NEGATIVE) H 04/03/19 21:30 Alcohol, Quantitative < 10 mg/dl (0-10) 03/16/19 21:09 JEAN-PAUL Screen Negative (Negative) 03/17/19 12:00 ANCA Screen Negative (NEGATIVE) 03/17/19 12:00 c-ANCA Titer TNP 03/17/19 12:00 Proteinase 3 (PR3) <1.0 AI (<1.0) 03/17/19 12:00 p-ANCA Titer TNP 03/17/19 12:00 Atypical p-ANCA Titer TNP 03/17/19 12:00 Myeloperoxidase Ab <1.0 AI (<1.0) 03/17/19 12:00 Complement C3 106.0 mg/dL (88.0-165.0) 03/18/19 11:07 Complement C4 24.1 mg/dL (14.0-44.0) 03/18/19 11:07 Hepatitis A IgM Ab Negative (NEGATIVE) 03/17/19 06:36 Hep Bs Antigen Negative (NEGATIVE) 03/17/19 06:36 Hep B Core IgM Ab Negative (NEGATIVE) 03/17/19 06:36 Hepatitis C Antibody Negative (NEGATIVE) 03/17/19 06:36 HIV 1&2 Antibody Screen Negative (NEGATIVE) 03/17/19 11:09 Attending/Attestation - Attestation I have personally seen and examined this patient.: Yes I have fully participated in the care of the patient.: Yes I have reviewed all pertinent clinical information, including history, physical exam and plan: Yes Notes (Text): 04/06/19 17:24 Please note that this patient was discharged on 04/05/19. Discharge instructions were gone over in detail with resident Dr. Dhaliwal. Pardeep Tirado D.O.
--- NOTE | 2019-04-05 15:44 | PCM.HF ---
Heart Failure Core Measure - Heart Failure Ejection Fraction: 40 % or Greater CHARLINE Inhibitor Prescribed: No Contraindication/Reason for not providing: ARB was prescribed Beta-Megan Prescribed: Carvedilol Angiotensin II Receptor Emgan Prescribed: Yes AnticoagulationTherapy for Atrial Fibrillation/Atrialflutter: Yes - Follow up Will be discharged to: Home Follow Up Date (must be within 7 days from discharge): 04/15/19
[2019-04-05 16:56] VITALS: BP 180/65
[2019-04-05 17:06] VITALS: PULSE 64; TEMP 99; O2SAT 99
== END 2019-04-05 19:08 | disposition home or self-care (01) | DRG 180 ==
LOC: C.ER 19:36 → SUPCPDRO 19:36 → C.9E 22:44 → C.6T 23:01 → OBSVTOIN 03-18 16:26 → EEVIPCON 03-18 16:26 → C.6T 03-25 19:16
PROVIDERS: ADMIT Hospitalist; ATTEND Hospitalist
PROC: 0TB13ZX Excision of Left Kidney, Percutaneous Approach, Diagnostic (ICD-10-PCS; 2019-03-22)
PROC: BT42ZZZ Ultrasonography of Left Kidney (ICD-10-PCS; 2019-03-22)
PROC: 05HM33Z Insertion of Infusion Device into Right Internal Jugular Vein, Percutaneous Approach (ICD-10-PCS; 2019-03-25)
PROC: B543ZZA Ultrasonography of Right Jugular Veins, Guidance (ICD-10-PCS; 2019-03-25)
PROC: B5131ZA Fluoroscopy of Right Jugular Veins using Low Osmolar Contrast, Guidance (ICD-10-PCS; 2019-03-25)
PROC: 03180KD Bypass Left Brachial Artery to Upper Arm Vein with Nonautologous Tissue Substitute, Open Approach (ICD-10-PCS; principal; 2019-03-25 09:00)
PROC: 5A1D70Z Performance of Urinary Filtration, Intermittent, Less than 6 Hours Per Day (ICD-10-PCS; 2019-03-26)
PROC: 5A1D70Z Performance of Urinary Filtration, Intermittent, Less than 6 Hours Per Day (ICD-10-PCS; 2019-03-27)
PROC: 5A1D70Z Performance of Urinary Filtration, Intermittent, Less than 6 Hours Per Day (ICD-10-PCS; 2019-03-29)
PROC: 5A1D70Z Performance of Urinary Filtration, Intermittent, Less than 6 Hours Per Day (ICD-10-PCS; 2019-04-01)
PROC: 5A1D70Z Performance of Urinary Filtration, Intermittent, Less than 6 Hours Per Day (ICD-10-PCS; 2019-04-03)
DX: I13.2 Hypertensive heart and chronic kidney disease with heart failure and with stage 5 chronic kidney disease, or end stage renal disease (principal); N17.9 Acute kidney failure, unspecified; E11.21 Type 2 diabetes mellitus with diabetic nephropathy; N18.6 End stage renal disease; I48.3 Typical atrial flutter; E11.22 Type 2 diabetes mellitus with diabetic chronic kidney disease; I27.20 Pulmonary hypertension, unspecified; I50.33 Acute on chronic diastolic (congestive) heart failure; F11.23 Opioid dependence with withdrawal; F14.23 Cocaine dependence with withdrawal; I16.0 Hypertensive urgency; D35.01 Benign neoplasm of right adrenal gland; E11.40 Type 2 diabetes mellitus with diabetic neuropathy, unspecified; E11.51 Type 2 diabetes mellitus with diabetic peripheral angiopathy without gangrene; E27.8 Other specified disorders of adrenal gland; E55.9 Vitamin D deficiency, unspecified; E86.9 Volume depletion, unspecified; F10.20 Alcohol dependence, uncomplicated; F17.210 Nicotine dependence, cigarettes, uncomplicated; G89.29 Other chronic pain; I07.1 Rheumatic tricuspid insufficiency; I49.3 Ventricular premature depolarization; I77.1 Stricture of artery; K59.03 Drug induced constipation; K74.60 Unspecified cirrhosis of liver; K76.0 Fatty (change of) liver, not elsewhere classified; K83.8 Other specified diseases of biliary tract; L84 Corns and callosities; T40.2X5A Adverse effect of other opioids, initial encounter; Z59.9 Problem related to housing and economic circumstances, unspecified; Z79.01 Long term (current) use of anticoagulants; Z79.4 Long term (current) use of insulin; Z79.899 Other long term (current) drug therapy; Z80.3 Family history of malignant neoplasm of breast; Z81.8 Family history of other mental and behavioral disorders; Z86.73 Personal history of transient ischemic attack (TIA), and cerebral infarction without residual deficits; Z91.19 Patient's noncompliance with other medical treatment and regimen; Z99.2 Dependence on renal dialysis